=== PATIENT | female | born 1935 | race Caucasian/White ===

== ENCOUNTER → 2023-07-24 | Outpatient (REF) | payer MEDICARE, SELFPAY ==
[2023-07-25 08:45] LABS: Mucous, Urine 0 SEEN /hpf (<or=2+); Squamous Epithelial Cells - UA 0 SEEN /hpf (5-10)
[2023-07-25 09:02] LABS: Color, Urine Yellow (Yellow); Glucose, Dipstick Normal (Normal); Ketone-Dipstick Negative (Negative); Leukocyte Esterase-Dipstick 25 /ul (Negative); Nitrite-Dipstick Negative (Negative); Occult Blood-Urine 250 /ul (Negative); Protein-Dipstick 30 mg/dl (Negative); Urine Bilirubin Dipstick Negative (Negative); Urine Clarity Clear (Clear); Urine Urobilinogen Normal (Normal)
[2023-07-25 09:34] LABS: Red Blood Cells-Urine 25-50 SEEN /hpf (0-5); White Blood Cells 0-5 SEEN /hpf (0-5)
[2023-07-25 09:35] LABS: Bacteria 1+ /hpf (None Seen)
== END ==
LOC: OLS.SANC 12:00
PROVIDERS: Visit Provider Internal Medicine
DX: N39.0 Urinary tract infection, site not specified (principal)
CPT/HCPCS: 81001; 87086; 87088

== ENCOUNTER → 2023-07-30 | Outpatient (REF) | payer MEDICARE, SELFPAY ==
[2023-07-30 07:46] LABS: Mean Corp Hgb Conc 30.8 g/dL (32-36); Mean Corpuscular Hgb 25.8 pg (27.0-32.0); Mean Corpuscular Volume 83.9 fL (81-99); Mean Platelet Vol. 11.2 fl (6.2-12.0); Platelet Count 399 K/mm3 (150-450); RBC Distribution Width SD 43.1 fl (35.1-43.9); White Blood Count 6.8 K/mm3 (4.4-11.0)
[2023-07-30 07:50] LABS: ALB/GLOB Ratio 0.5 RATIO (0.9-2.4); AST(SGOT) 17 U/L (15-37); Alanine Aminotransfer ALT/SGPT 14 U/L (13-56); Alkaline Phosphatase 75 U/L (45-117); Anion Gap 4 (5-15); BUN 16 mg/dL (7-18); BUN/Creat Ratio 13.9 RATIO (10-20); Calcium,Total 8.6 mg/dL (8.5-10.1); Chloride 106 mmol/L (98-107); Creatinine, Serum 1.15 mg/dL (0.55-1.02); EST Glomerular Filtration Rate 48 mL/min (>60); Est Glom Filt Rate - Afr Amer 58 mL/min (>60); Globulin 4.3 g/dL (2.2-4.2); Glucose 97 mg/dL (74-106); Potassium 3.7 mmol/L (3.5-5.1); Protein, Total 6.3 g/dL (6.4-8.2); Sodium Level 139 mmol/L (136-145)
== END ==
LOC: OLS.SANC 04:00
PROVIDERS: Referring Provider Internal Medicine; Visit Provider Internal Medicine
DX: F03.90 Unspecified dementia, unspecified severity, without behavioral disturbance, psychotic disturbance, mood disturbance, and anxiety (principal); R53.83 Other fatigue; N28.9 Disorder of kidney and ureter, unspecified
CPT/HCPCS: 36415; 80053; 85027

== ENCOUNTER → 2024-12-13 | Outpatient (REF) | payer MEDICARE, SELFPAY ==
--- OUTSIDE RECORDS SUMMARY | 2024-12-13 04:49 | XMS RPT_ITS | CCD ---
Author Organization [facility] Care Team Providers Care Well Blower Name Role Phone Zeus AVILA Vera Primary Care Provider Christiano Gould Referring Unavailable Christiano Gould Attending Unavailable Christiano Gould Attending Unavailable BICAKODAK DO~[phone], BICAKODAK VERA Attendin g Unavailable BICAKODAK DO, VERA Primary Care Unavailable BICAKODAK DO~[id number], BICAKODAK VERA Admittin g Unavailable BICAKODAK DO~[id number], BICAKODAK VERA Attendin g Unavailable BICAKODAK DO, VERA Primary Care Unavailable BICAKODAK DO~[phone], BICAKODAK VERA Admittin g Unavailable Bicak-Odak DO, Vera Primary Care Provider ZEUS VERA Primary Care Unavailable ANTHONY WATKINS Consulting Unavailable VICTORINO BARNES Attending Unavailable CAMERON, VICTORINO Admitting Unavailable ENZO CAREY Consulting Unavailable Medications Current Medications Medication Drug Class(es) Dates Sig (Normalized) Sig (Original) cephalexin 500 mg oral capsule (1 source) Cephalosporin Antibacterial Start: 12-26-2022 End: 12-31-2022 take 1 capsule by mouth twice daily cephalexin (Keflex) 500 MG capsule Take 1 capsule (500 mg) by mouth 2 times daily for 5 days. 10 capsule 0 12/26/2022 12/31/2022 Active cholecalciferol 0.05 mg oral tablet (5 sources) Vitamin D Start: 12-05-2024 End: 12-05-2025 take 1 tablet by mouth once daily cholecalciferol (Vitamin D-3) 50 MCG (2000 UT) tablet Take 1 tablet (2,000 Units) by mouth daily. 30 tablet 11 12/05/2024 12/05/2025 Active Start: 12-04-2024 End: 12-04-2024 take 2000 [IU] by mouth once daily 2,000 Units, Oral, Daily, First dose on Fri12/04/24 at 0900 12 hr guaiFENesin 600 mg extended release oral tablet (6 sources) Start: 07-31-2022 End: 08-14-2022 take 1 tablet by mouth twice daily guaiFENesin (Mucinex) 600 MG 12 hr tablet Take 1 tablet (600 mg) by mouth 2 times daily for 7 days. Do not crush, chew, or split. 14 tablet 0 08/06/2022 08/14/2022 Active metoprolol tartrate 25 mg oral tablet (20 sources) beta-Adrenergic Mala Start: 12-01-2024 End: 12-04-2025 take 1 tablet by mouth twice daily metoprolol tartrate (Lopressor) 25 MG tablet Take 1 tablet (25 mg) by mouth 2 times daily. 60 tablet 11 12/04/2024 12/04/2025 Active Start: 07-11-2023 End: 07-22-2023 take 100 mg by mouth twice daily 100 mg, Oral, 2 times daily, First dose on Fri07/11/23 at 2130 Start: 07-31-2022 End: 08-07-2022 take 100 mg by mouth twice daily 100 mg, Oral, 2 times daily, First dose on Fri07/31/22 at 2100 Start: 06-20-2021 End: 12-04-2024 take 100 mg by mouth twice daily 100 mg, Oral, 2 times daily, First dose on Fri12/01/24 at 0900 miconazole nitrate 0.02 mg/mg topical powder (5 sources) Azole Antifungal Start: 12-03-2024 End: 12-04-2024 miconazole (Micotin) 2 % powder Apply topically 2 times daily. 1 g 12/04/2024 Active Completed/Discontinued Medications Medication Drug Class(es) Dates Sig (Normalized) Sig (Original) Acetaminophen (6 sources) Start: 12-01-2024 End: 12-04-2024 take 1 tablet by mouth every six hours as needed for pain and fever acetaminophen (Tylenol) tablet 650 mg Start: 07-11-2023 End: 02-27-2024 take 1 tablet by mouth every six hours as needed for pain and fever acetaminophen (Tylenol) tablet 650 mg Start: 06-20-2021 End: 08-07-2022 take 2 tablets by mouth every twenty-four hours as needed acetaminophen (Tylenol) 500 MG tablet Take 1,000 mg by mouth Daily as needed. 0 06/20/2021 08/07/2022 Discontinued (Stop taking at discharge) albuterol 0.833 mg/ml / ipratropium bromide 0.167 mg/ml inhalation solution (8 sources) Anticholinergic, beta2-Adrenergic Agonist Start: 07-16-2023 End: 07-22-2023 ipratropium-albuterol (Duo-Neb) 0.5-2.5 mg/3 mL nebulizer solution 3 mL Start: 07-31-2022 End: 08-07-2022 ipratropium-albuterol (Duo-N eb) 0.5-2.5 mg/3 mL nebulizer solution 3 mL amLODIPine 5 mg oral tablet (20 sources) Dihydropyridine Calcium Channel Mala Start: 07-23-2023 End: 12-04-2024 take 5 mg by mouth once daily 5 mg, Oral, Daily, First dose on Fri12/01/24 at 0900, On hold since Fri12/02/2024 at 0748 until manually unheld Start: 07-22-2023 End: 07-22-2023 amLODIPine (Norvasc) tablet 5 mg Start: 08-06-2022 End: 07-22-2023 take 1 tablet by mouth once daily amLODIPine (Norvasc) 10 MG tablet Take 1 tablet (10 mg) by mouth daily. Do not start before August 07, 2022. 30 tablet 1 08/07/2022 10/06/2022 Active Start: 08-04-2022 End: 08-05-2022 amLODIPine (Norvasc) tablet 7.5 mg Start: 06-20-2021 End: 08-03-2022 amLODIPine (Norvasc) tablet 5 mg aspirin 81 mg delayed release oral tablet (17 sources) Platelet Aggregation Inhibitor, Nonsteroidal Anti-inflammatory Drug Start: 12-02-2024 End: 12-04-2024 take 81 mg by mouth once daily 81 mg, Oral, Daily, First dose on Fri12/02/24 at 0900, Do not crush, chew, or split. Start: 12-01-2024 End: 12-01-2024 take 324 mg by mouth once 324 mg, Oral, Once, On Fri at 0000, For 1 dose Start: 07-12-2023 End: 07-22-2023 take 81 mg by mouth once daily 81 mg, Oral, Daily, Fir st dose on Fri07/12/23 at 0900, Do not crush, chew, or split. Start: 07-31-2022 End: 10-06-2022 take 1 tablet by mouth once daily aspirin 81 MG EC tab let Take 1 tablet (81 mg) by mouth daily. Do not start before August 07, 2022. 30 tablet 1 08/07/2022 10/06/2022 Active benzocaine 6 mg / menthol 10 mg oral lozenge (2 sources) Standardized Chemical Allergen Start: 08-01-2022 End: 08-07-2022 benzocaine-menthol (Chloraseptic) 6-10 MG lozenge 1 lozenge budesonide 0.25 mg/ml inhalation suspension (2 sources) Corticosteroid Start: 08-01-2022 End: 08-07-2022 budesonide (Pulmicort) 0.5 MG/2ML nebulizer solution 0.5 mg calcium chloride 0.0014 meq/ml / potassium chloride 0.004 meq/ml / sodium chloride 0.103 meq/ml / sodium lactate 0.028 meq/ml injectable solution (4 sources) Start: 12-02-2024 End: 12-02-2024 take 100 mL intravenously every hour 100 mL/hr, IntraVENous, Continuous, Starting on Fri12/02/24 at 0800, For 10 hours Start: 08-03-2022 End: 08-03-2022 lactated Ringer's infusion cefTRIAXone (Rocephin) 1,000 mg in sodium chloride 0.9 % 50 mL IVPB Mini-Bag Plus (6 sources) Start: 07-16-2023 End: 07-16-2023 cefTRIAXone (Rocephin) 1,000 mg in sodium chloride 0.9 % 50 mL IVPB Mini-Bag Plus Start: 08-05-2022 End: 08-06-2022 cefTRIAXone (Rocephin) 1,000 mg in sodium chloride 0.9 % 50 mL IVPB Mini-Bag Plus Start: 07-31-2022 End: 08-05-2022 1,000 mg, IntraVENous, at 10 0 mL/hr, Administer over 30 Minutes, Every 24 hours, First dose on Fri07/31/22 at 1930 Mini-Bag Plus bag Suspected Indication (Select all that apply): COPD Exacerbation doxycycline monohydrate 100 mg oral capsule (2 sources) Tetracycline-class Drug Start: 07-31-2022 End: 08-01-2022 100 mg, Oral, 2 times daily, First dose on Fri07/31/22 at 2100 Take with at least 8 ounces (large glass) of water, do not lie down for 30 minutes after Suspected Indication (Select all that apply): COPD Exacerbation 0.4 ml enoxaparin sodium 100 mg/ml prefilled syringe (6 sources) Low Molecular Weight Heparin Start: 12-01-2024 End: 12-04-2024 inject 40 mg by subcutaneous injection every twenty-four hours 40 mg, SubCUTAneous, Every 24 hours scheduled (Daily), First dose on Fri12/01/24 at 0900, Indication of Use: Prophylaxis-DVT/PE , Indications: Prophylaxis of Venous Thromboembolism Start: 07-12-2023 End: 07-22-2023 inject 40 mg by subcutaneous injection every twenty-four hours 40 mg, SubCUTAneous, Every 24 hours scheduled (Daily), First dose on Fri07/12/23 at 0900, Indication of Use: Prophylaxis-DVT/PE, Indications: Prophylaxis of Venous Thromboembolism Start: 07-31-2022 End: 08-07-2022 inject 40 mg by subcutaneous injection every twenty-four hours 40 mg, SubCUTAneous, Every 24 hours scheduled (Daily), First dose on Fri07/31/22 at 2000 Indication of Use: Prophylaxis-DVT/PE Indications: Prophylaxis of Venous Thromboembolism 4 ml furosemide 10 mg/ml injection (2 sources) Loop Diuretic Start: 07-16-2023 End: 07-16-2023 furosemide (Lasix) injection 40 mg hydrALAZINE hydrochloride 50 mg oral tablet (13 sources) Arteriolar Vasodilator Start: 08-07-2022 End: 07-22-2023 take 50 mg by mouth three times daily 50 mg, Oral, 3 times daily, First dose on Fri07/11/23 at 2130 Start: 08-06-2022 End: 08-07-2022 hydrALAZINE (Apresoline) tab let 25 mg iopamidol (Isovue-370) 76 % injection 75 mL (2 sources) Start: 12-01-2024 End: 12-01-2024 take 75 mL intravenously once as needed 75 mL, IntraVENous, IMG once PRN, contrast, Starting on Fri12/01/24 at 0041, For 1 dose 50 ml magnesium sulfate 40 mg/ml injection (5 sources) Start: 11-30-2024 End: 12-01-2024 2,000 mg, IntraVENous, at 25 mL/hr, Administer over 2 Hours, Once, On Fri11/30/24 at 2325, For 1 dose, Recommended infusion rate not to exceed 1,000 mg (milligrams) per hour. Start: 07-11-2023 End: 07-11-2023 magnesium sulfate IVPB premi x 2,000 mg Start: 12-26-2022 End: 12-26-2022 magnesium sulfate in D5W IVP B 1,000 mg melatonin 3 mg oral tablet (11 sources) Start: 07-16-2023 End: 12-04-2024 methylPREDNISolone 40 mg injection (4 sources) Corticosteroid Start: 08-01-2022 End: 08-02-2022 take 20 mg intravenously every twelve hours methylPREDNISolone sod suc (PF) (SOLU-Medrol) 40 MG injection 20 mg Start: 07-31-2022 End: 08-01-2022 take 40 mg intravenously every twelve hours 40 mg, IntraVENous, Every 12 hours, First dose on Fri07/31/22 at 1815 nystatin 034811 unt/ml oral suspension (2 sources) Polyene Antifungal Start: 08-02-2022 End: 08-07-2022 nystatin (Mycostatin) 419326 UNIT/ML suspension 500,000 Units ondansetron ODT (Zofran-ODT) disintegrating tablet 4 mg (6 sources) Start: 12-01-2024 End: 12-04-2024 take 1 tablet by mouth every eight hours as needed for nausea and vomiting ondansetron ODT (Zofran-ODT) disintegrating tablet 4 mg Start: 07-11-2023 End: 07-22-2023 take 1 tablet by mouth every eight hours as needed for nausea and vomiting ondansetron ODT (Zofran-ODT) disintegrating tablet 4 mg Start: 07-31-2022 End: 08-07-2022 take 1 tablet by mouth every eight hours as needed for nausea and vomiting ondansetron ODT (Zofran-ODT) disintegrating tablet 4 mg pantoprazole 40 mg delayed release oral tablet (16 sources) Proton Pump Inhibitor Start: 08-05-2022 End: 12-04-2024 take 40 mg by mouth once daily before breakfast 40 mg, Oral, Daily before breakfast, First dose on Shivani 12/02/24 at 0600, Do not crush, chew, or split. PARoxetine hydrochloride 10 mg oral tablet (11 sources) Serotonin Reuptake Inhibitor Start: 07-15-2023 End: 07-17-2023 PARoxetine (Paxil) tablet 10 mg Start: 07-12-2023 End: 07-14-2023 take 20 mg by mouth once daily in the morning 20 mg, Oral, Every morning, First dose on 07/12/23 at 0900 End: 07-22-2023 take 2 tablets by mouth once daily in the morning PARoxetine (Paxil) 10 MG tablet Take 20 mg by mouth every morning. 0 07/22/2023 Discontinued (Stop taking at discharge) perflutren lipid microspheres (Definity) injection 1.65 mg (2 sources) Start: 07-31-2022 End: 08-07-2022 1.65 mg, IntraVENous, IMG once PRN, other, Suboptimal echo image, Starting on Fri07/31/22 at 1810, For 1 dose, CV Procedural Medications Administer up to 1.65 mg via slow IVP for suboptimal echocardiogram enhancement. May administer a calculated dose or diluted 8.5 mL of 0.9% sodium chloride for a total volume of 10 mL. May administer as divided doses to reach optimal image enhancement perflutren protein A microsphere (Optison) 3 mL in sodium chloride (PF) 0.9 % 10 mL IV (2 sources) Start: 12-02-2024 End: 12-02-2024 0-10 mL, IntraVENous, IMG once PRN, other, Suboptimal echo image, Starting on Shivani 12/02/24 at 0943, For 1 dose, CV Procedural Medications, Administer via slow IVP for suboptimal echocardiogram enhancement. May administer as divided doses to reach optimal image enhancement polyethylene glycol 3350 31274 mg powder for oral solution (6 sources) Osmotic Laxative Start: 12-01-2024 End: 12-04-2024 take 17 g by mouth every twenty-four hours as needed for constipation Start: 07-17-2023 End: 07-22-2023 polyethylene glycol (PEG) 33 50 (Miralax) packet 17 g Start: 07-31-2022 End: 08-07-2022 take 17 g by mouth every twenty-four hours as needed for constipation 17 g, Oral, Daily PRN, constipation, Starting on Fri07/31/22 at 1810 1st line for treatment of constipation - give scheduled if no bowel movement in past 24 hours. microencapsulated potassium chloride 10 meq extended release oral tablet (12 sources) Start: 12-02-2024 End: 12-02-2024 20 mEq, Oral, Once, On Fri12/02/24 at 0800, For 1 dose, Best given with food and plenty of water to minimize gastric irritation. Do not crush or chew. Start: 07-21-2023 End: 07-22-2023 potassium chloride (Klor-Con ) packet 20 mEq Start: 07-18-2023 End: 07-21-2023 potassium chloride CR (Klor- Con M20) ER tablet 20 mEq Start: 07-11-2023 End: 07-12-2023 potassium chloride IVPB 10 m Eq Start: 07-11-2023 End: 07-11-2023 potassium chloride (Klor-Con ) packet 40 mEq Start: 07-31-2022 End: 07-31-2022 potassium chloride (Klor-Con ) packet 40 mEq predniSONE 20 mg oral tablet (4 sources) Start: 07-16-2023 End: 07-18-2023 predniSONE (Deltasone) table t 40 mg Start: 08-02-2022 End: 08-05-2022 predniSONE (Deltasone) table t 40 mg sertraline 50 mg oral tablet (16 sources) Serotonin Reuptake Inhibitor Start: 12-03-2024 End: 12-04-2024 take 50 mg by mouth once daily 50 mg, Oral, Daily, First dose on Fri12/03/24 at 0900 Start: 07-25-2023 End: 07-24-2024 sertraline (Zoloft) 50 MG ta blet Take 1 tablet (50 mg) by mouth daily. Do not start before July 25, 2023. 07/25/2023 Active Start: 07-25-2023 End: 07-22-2023 sertraline (Zoloft) tablet 5 0 mg Start: 07-25-2023 End: 07-22-2023 sertraline (Zoloft) tablet 5 0 mg Start: 07-23-2023 End: 12-04-2024 take 1 tablet by mouth once daily sertraline (Zoloft) 25 MG tablet Take 1 tablet (25 mg) by mouth daily for 2 doses. 07/23/2023 12/04/2024 Discontinued (Stop taking at discharge) Start: 07-18-2023 End: 07-22-2023 sertraline (Zoloft) tablet 2 5 mg 50 ml sodium chloride 9 mg/m l injection (17 sources) Start: 12-01-2024 End: 12-01-2024 500 mL, IntraVENous, at 250 mL/hr, Administer over 2 Hours, Once, On Fri12/01/24 at 0000, For 1 dose Start: 07-11-2023 End: 07-16-2023 take 100 mL intravenously every hour 100 mL/hr, IntraVENous, Continuous, Starting on Fri07/11/23 at 2130 Start: 07-11-2023 End: 07-11-2023 sodium chloride 0.9 % bolus 1,000 mL Start: 12-26-2022 End: 12-26-2022 sodium chloride 0.9 % bolus 1,000 mL Start: 07-31-2022 End: 08-07-2022 10 mL, IntraVENous, Every 12 hours scheduled (2 times per day), First dose on Fri07/31/22 at 2100 Start: 07-31-2022 End: 08-07-2022 5-250 mL/hr, IntraVENous, DE N, if patient receiving piggyback infusions and maintenance fluids are not ordered OR KVO fluids to protect IV site / prevent frequent line interruptions/ long duration, Starting on Fri07/31/22 at 1810 For piggyback infusion, administer at same rate as piggyback for a total of 25 mL. Enter 25 mL into dose field and piggyback rate into rate field of order. If piggyback is infusing at a rate less than 100 mL/hr, enter 25 mL into dose field and 100 mL/hr into rate field of order. For KVO fluids, enter rate of 20 mL/hr or less into rate field of order. Start: 07-31-2022 End: 08-07-2022 take 10 mL intravenously once 10 mL, IntraVENous, PRN, line care, Starting on Fri07/31/22 at 1810 After every IV line use Start: 07-31-2022 End: 07-31-2022 sodium chloride 0.9 % bolus 500 mL therapeutic multivitamin-minerals (Theragran-M) tablet (12 sources) Start: 12-01-2024 End: 12-04-2024 take 1 tablet by mouth once daily 1 tablet, Oral, Daily, First dose on Fri12/01/24 at 0900 take 1 tablet by mouth once joseph y therapeutic multivitamin-minerals (Theragran- M) tablet Take 1 tablet by mouth daily. Active take 1 tablet by mouth once joseph y therapeutic multivitamin-minerals (Theragran- M) tablet Take 1 tablet by mouth daily. 0 Active Problems Active Problems Problem Classification Problem Date Documented Date Episodic/Chronic Acute and unspecified renal failure (4 sources) Acute renal failure syndrome; Translations: [Acute kidney failure, unspecified] Onset: 11-30-2024 11-30-2024 Episodic Chronic kidney disease (3 sources) Chronic kidney disease, unspecified; Translations: [Chronic kidney disease, unspecified] Onset: 08-14-2023 Chronic Chronic kidney disease (1 source) Chronic kidney disease; Translations: [CHRONIC KIDNEY DISEASE STAGE 3B] Onset: 09-02-2024 Conditions associated with dizziness or vertigo (1 source) Dizziness; Translations: [Dizziness and giddiness] 12-26-2022 Episodic Delirium, dementia, and amnestic and other cognitive disorders (13 sources) Unspecified dementia without behavioral disturbance; Translations: [Dementia] Onset: 08-14-2023 12-01-2024 Chronic Essential hypertension (2 sources) Essential (primary) hypertension; Translations: [ESSENTIAL PRIMARY HYPERTENSION] Onset: 02-12-2024 Chronic Fluid and electrolyte disorders (2 sources) Hypokalemia; Translations: [Hypokalemia] 07-11-2023 Episodic Hypertension with complications and secondary hypertension (2 sources) Hypertensive chronic kidney disease with stage 1 through stage 4 chronic kidney disease, or unspecified chronic kidney disease; Translations: [HTN CKD W/STAGE 1-4 CKD/UNS CKD] Onset: 09-02-2024 Chronic Malaise and fatigue (8 sources) Asthenia; Translations: [Weakness] Onset: 08-14-2023 07-11-2023 Episodic Mood disorders (1 source) Major depressive disorder, recurrent, mild; Translations: [REGINE DEPRESS D/O RECURRENT MILD] Onset: 09-02-2024 Chronic Nutritional deficiencies (9 sources) Malnutrition (calorie); Translations: [Moderate protein-calorie malnutrition] Onset: 07-14-2023 07-14-2023 Chronic Osteoarthritis (10 sources) Arthritis of knee; Translations: [Unilateral primary osteoarthritis, unspecified knee] Onset: 06-17-2021 03-10-2022 Chronic Other nutritional; endocrine; and metabolic disorders (2 sources) Hypomagnesemia; Translations: [Hypomagnesemia] 07-11-2023 Chronic Other screening for suspected conditions (not mental disorders or infectious disease) (4 sources) Abnormal findings on diagnostic imaging of other specified body structures; Translations: [Nonspecific (abnormal) findings on radiological and other examination of other intrathoracic organs] Onset: 11-30-2024 11-30-2024 Chronic Other screening for suspected conditions (not mental disorders or infectious disease) (4 sources) Raised cardiac enzyme or marker; Translations: [Other specified abnormal findings of blood chemistry] Onset: 11-30-2024 11-30-2024 Episodic Other skin disorders (2 sources) Mass of neck; Translations: [Localized swelling, mass and lump, neck] 11-30-2024 Episodic Other skin disorders (2 sources) Localized swelling, mass and lump, neck; Translations: [Localized swelling, mass and lump, neck] Onset: 11-30-2024 Episodic Residual codes; unclassified (2 sources) Restlessness and agitation; Translations: [Restlessness and agitation] 11-30-2024 Chronic Residual codes; unclassified (2 sources) Restlessness and agitation; Translations: [Restlessness and agitation] Onset: 11-30-2024 Chronic Residual codes; unclassified (5 sources) At risk of delirium; Translations: [Other specified personal risk factors, not elsewhere classified] Onset: 12-01-2024 12-01-2024 Episodic Urinary tract infections (2 sources) Acute cystitis; Translations: [Acute cystitis without hematuria] Onset: 08-11-2023 12-26-2022 Episodic Past or Other Problems Problem Classification Problem Date Documented Da te Episodic/Chronic Other aftercare (1 source) Other jail (current) drug therapy; Translations: [OTH RETIREMENT CURRENT DRUG THERAPY] Onset: 02-12-2024 Episodic Other lower respiratory disease (14 sources) Dyspnea; Translations: [Dyspnea, unspecified] Onset: 07-31-2022 Episodic Residual codes; unclassified (9 sources) Activity of daily living (ADL) alteration; Translations: [Other specified health status] Onset: 07-11-2023 07-11-2023 Episodic Results Test Name Value Interpretation Reference Range Facility [id number] 12-05-2024 [id number] Patient Choice Patient Name: YELENA CHANDRA Date of : 1935 [facility] 30on 12-04-2024 30 Problem: Pain - Adul t Goal: Verbalizes/displays adequate comfort level or baseline comfort level 12/04/2024444 by Salina Godoy RN Outcome: Not Progressing 12/04/2024 040 by Salina Godoy RN Outcome: Not Progressing 12/04/2024 014 by Salina Godoy RN Outcome: Not Progressing 12/04/2024 012 by Salina Godoy RN Outcome: Not Progressing Problem: Safety - Adult Goal: Free from fall injury 12/04/2024444 by Salina Godoy RN Outcome: Not Progressing 12/04/2024404 by Salina Godoy RN Outcome: Not Progressing 12/04/2024 0141 by Salina Godoy RN Outcome: Not Progressing 12/04/2024 012 by Salina Godoy RN Outcome: Not Progressing Problem: Discharge Planning Goal: Discharge to home or other facility with appropriate resources 12/04/2024 0445 by Salina Godoy RN Outcome: Not Progressing 12/04/2024 0405 by Salina Godoy RN Outcome: Not Progressing 12/04/2024 014 by Salina Godoy RN Outcome: Not Progressing 12/04/2024 0127 by Salina Godoy RN Outcome: Not Progressing Problem: Chronic Conditions and Co-morbidities Goal: Patient's chronic conditions and co-morbidity symptoms are monitored and maintained or improved 12/04/2024 044 by Salina Godoy RN Outcome: Not Progressing 12/04/2024 040 by Salina Godoy RN Outcome: Not Progressing 12/04/2024 014 by Salina Godoy RN Outcome: Not Progressing 12/04/2024 012 by Salina Godoy RN Outcome: Not Progressing Problem: Problem Interventions Goal: Assess Nutritional Intake 12/04/2024444 by Salina Godoy RN Outcome: Not Progressing 12/04/2024 040 by Salina Godoy RN Outcome: Not Progressing 12/04/2024 014 by Salina Godoy RN Outcome: Not Progressing 12/04/2024 012 by Salina Godoy RN Outcome: Not Progressing [facility] 30 Problem: Pain - Adul t Goal: Verbalizes/displays adequate comfort level or baseline comfort level 12/04/2024404 by Salina Godoy RN Outcome: Not Progressing 12/04/2024 014 by Salina Godoy RN Outcome: Not Progressing 12/04/2024 012 by Salina Godoy RN Outcome: Not Progressing Problem: Safety - Adult Goal: Free from fall injury 12/04/2024404 by Salina Godoy RN Outcome: Not Progressing 12/04/2024 014 by Salina Godoy RN Outcome: Not Progressing 12/04/2024 012 by Salina Godoy RN Outcome: Not Progressing Problem: Discharge Planning Goal: Discharge to home or other facility with appropriate resources 12/04/2024 0405 by Salina Godoy RN Outcome: Not Progressing 12/04/2024 014 by Salina Godoy RN Outcome: Not Progressing 12/04/2024 012 by Salina Godoy RN Outcome: Not Progressing Problem: Chronic Conditions and Co-morbidities Goal: Patient's chronic conditions and co-morbidity symptoms are monitored and maintained or improved 12/04/2024 040 by Salina Godoy RN Outcome: Not Progressing 12/04/2024 014 by Salina Godoy RN Outcome: Not Progressing 12/04/2024 012 by Salina Godoy RN Outcome: Not Progressing Problem: Problem Interventions Goal: Assess Nutritional Intake 12/04/2024 040 by Salina Godoy RN Outcome: Not Progressing 12/04/2024 014 by Salina Godoy RN Outcome: Not Progressing 12/04/2024 012 by Salina Godoy RN Outcome: Not Progressing Normal [facility] 30 Problem: Pain - Adul t Goal: Verbalizes/displays adequate comfort level or baseline comfort level 12/04/2024 014 by Salina Godoy RN Outcome: Not Progressing 12/04/2024 012 by Salina Godoy RN Outcome: Not Progressing Problem: Safety - Adult Goal: Free from fall injury 12/04/2024 014 by Salina Godoy RN Outcome: Not Progressing 12/04/2024 012 by Salina Godoy RN Outcome: Not Progressing Problem: Discharge Planning Goal: Discharge to home or other facility with appropriate resources 12/04/2024 014 by Salina Godoy RN Outcome: Not Progressing 12/04/2024 012 by Salina Godoy RN Outcome: Not Progressing Problem: Chronic Conditions and Co-morbidities Goal: Patient's chronic conditions and co-morbidity symptoms are monitored and maintained or improved 12/04/2024140 by Salina Godoy RN Outcome: Not Progressing 12/04/2024126 by Salina Godoy RN Outcome: Not Progressing Problem: Problem Interventions Goal: Assess Nutritional Intake 12/04/2024140 by Salina Godoy RN Outcome: Not Progressing 12/04/2024126 by Salina Godoy RN Outcome: Not Progressing Normal [facility] [facility] 30 Problem: Pain - Adul t Goal: Verbalizes/displays adequate comfort level or baseline comfort level Outcome: Not Progressing Problem: Safety - Adult Goal: Free from fall injury Outcome: Not Progressing Problem: Discharge Planning Goal: Discharge to home or other facility with appropriate resources Outcome: Not Progressing Problem: Chronic Conditions and Co-morbidities Goal: Patient's chronic conditions and co-morbidity symptoms are monitored and maintained or improved Outcome: Not Progressing Problem: Problem Interventions Goal: Assess Nutritional Intake Outcome: Not Progressing Normal [facility] [id number] 12-04-2024 [id number] Next Site of Care Admission Date: 11/30/2024 10:21 PM Patient Name: YELENA CHANDRA Location: [address] CARDIAC PCU/[facility] [id number] A Date of : 1935 ---- Placement Information ---- Referral Type:Assisted/SNF - New Referral ID:[id number] Provider Name:[facility] [employer] [employer] Address 1:[address] [facility] Address 2: City:[place] Selection Factors:Patient/Family Choice State:[facility] [phone] PAS complete for patient to admit to [facility] . [facility]on 12-[facility]-2024 36 Name of caller requesting page:Ailyn Phone Number of caller: [phone] Facility requesting page: [facility] Reason for Page: MERNA Provider paged: Dr. Delcid Practice Name of paged provider: [facility] Nadine Miller Page Placed to #: secure chat Time Page was sent or provider contacted: 12:00 Page Content: Ailyn fam [facility] is calling to notify that you have a new admission coming today please advise [phone] [employer] [facility] CBC W Auto Differential pane l (Bld)on 12-04-2024 Basophils (Bld) [#/Vol] 0.1 10*3/uL 0.0 - 0.2 10*3/uL [facility] [employer] Basophils/100 WBC (Bld) 2 % 0.0 - 2.0 % [employer] [employer] Eosinophils (Bld) [#/Vol] 0.4 10*3/uL 0.0 - 0.5 10*3/uL [facility] Eosinophils/100 WBC (Bld) 6.6 % High 0.0 - 6.0 % [facility] Erythrocyte distribution width (RBC) [Ratio] 14 % 11.5 - 15.0 % [facility] Hematocrit (Bld) [Volume fraction] 32.7 % Low 35.0 - 47.0 % [facility] Hemoglobin (Bld) [Mass/Vol] 10.3 g/dL Low 11.7 - 16.0 g/dL [facility] Immature granulocytes (Bld) [#/Vol] 0 10*3/uL NINF - 0.1 10*3/uL [facility] Immature granulocytes/100 WBC (Bld) 0.5 % 0.0 - 2.0 % [facility] Interpretation and review of laboratory results Abnormal [facility] Lymphocytes (Bld) [#/Vol] 1.5 10*3/uL 1.0 - 4.3 10*3/uL [facility] Lymphocytes/100 WBC (Bld) 25.1 % 15.0 - 45.0 % [facility] MCH (RBC) [Entitic mass] 27.2 pg 26. 0 - 34.0 pg [facility] MCHC (RBC) [Mass/Vol] 31.5 % 30.5 - 36.0 % [facility] MCV (RBC) [Entitic vol] 86.3 fL 77.0 - 99.0 fL [facility] Monocytes (Bld) [#/Vol] 0.7 10*3/uL 0.0 - 0.9 10*3/uL [facility] Monocytes/100 WBC (Bld) 11.7 % 5.0 - 13.0 % [facility] Neutrophils (Bld) [#/Vol] 3.3 10*3/uL 1.8 - 7.5 10*3/uL [facility] Neutrophils/100 WBC (Bld) 54.1 % 38.0 - 82.0 % [facility] Nucleated RBC/100 WBC (Bld) [Ratio] 0 % [facility] Platelet mean volume (Bld) [Entitic vol] 10.2 fL 9.0 - 12.7 fL [facility] Platelets (Bld) [#/Vol] 320 10*3/uL 140 - 440 10*3/uL [facility] RBC (Bld) [#/Vol] 3.79 10*6/uL Low 3.80 - 5.2 0 10*6/uL [facility] WBC (Bld) [#/Vol] 6.1 10*3/uL 3.6 - 10.7 10*3/uL [facility] CBC WITH AUTO DIFFERENTIALon 12-04-2024 Basophils (Bld) [#/Vol] 0.1 10*3/uL Normal 0.0-0.2 [facility] Comment on above: Performed By: #### L [id number] ####Commercial Accountant: HILDA MACEDO ([phone])[facility] [place] ([facility])[address] Basophils/100 WBC (Bld) 2.0 % Normal 0.0-2.0 [facility] Comment on above: Performed By: #### L [id number] ####Commercial Accountant: HILDA MACEDO ([id number])[facility] (SB[facility])[address] [place] [address] Eosinophils (Bld) [#/Vol] 0.4 10*3/uL Normal 0.0-0.5 [facility] Comment on above: Performed By: #### L [id number] ####Commercial Accountant: HILDA MACEDO ([id number])[facility] [place] ([facility])[address] [place] [address] Eosinophils/100 WBC (Bld) 6.6 % High 0.0-6.0 [facility] Comment on above: Performed By: #### L [id number] ####Commercial Accountant: HILDA MACEDO ([id number])[facility] [place] (SB[facility])[address] [place] [address] Erythrocyte distribution width (RBC) [Ratio] 14.0 % Normal 11.5-15.0 [facility] Comment on above: Performed By: #### L [id number] ####Commercial Accountant: HILDA MACEDO ([id number])[facility] [place] ([facility])[address] [place] [address] Hematocrit (Bld) [Volume fraction] 32.7 % Low 35.0-47.0 [facility] Comment on above: Performed By: #### L [id number] ####Commercial Accountant: HILDA MACEDO ([id number])[facility] [place] [address] Hemoglobin (Bld) [Mass/Vol] 10.3 g/dL Low 11.7-16.0 [facility] Comment on above: Performed By: #### L [id number] ####Commercial Accountant: HILDA MACEDO ([id number])[facility] ([facility])[address] [place] [address] IMMATURE GRANS % 0.5 % Normal 0.0-2.0 [facility] Comment on above: Performed By: #### L [id number] ####Commercial Accountant: HILDA MACEDO ([id number])[facility] ([facility])[address] [place] [address] IMMATURE GRANS ABSOLUTE 0.0 10*3/uL Normal <0.1 [facility] Comment on above: Performed By: #### L [id number] ####Commercial Accountant: HILDA MACEDO ([id number])[facility] ([facility])[address] [place] [address] Lymphocytes (Bld) [#/Vol] 1.5 10*3/uL Normal 1.0-4.3 [facility] Comment on above: Performed By: #### L [id number] ####Commercial Accountant: HILDA MACEDO ([id number])[facility] ([facility])[address] [place] [address] Lymphocytes/100 WBC (Bld) 25.1 % Normal 15.0-45.0 [facility] Comment on above: Performed By: #### L [id number] ####Commercial Accountant: HILDA MACEDO ([id number])[facility])[address] [place] [address] MCH (RBC) [Entitic mass] 27.2 pg Normal 26.0-34.0 [facility] Comment on above: Performed By: #### L [id number] ####Commercial Accountant: HILDA MACEDO ([id number])[facility] (SB[facility]AB)[address] [place] [address] MCHC 31.5 % Normal 30.5-36.0 [facility] Comment on above: Performed By: #### L [id number] ####Commercial Accountant: HILDA MACEDO ([id number])[facility] [place] ([facility])[address] MCV (RBC) [Entitic vol] 86.3 fL Normal 77.0-99.0 [facility] Comment on above: Performed By: #### L [id number] ####Commercial Accountant: HILDA BRYANTCASSANDRA ([id number])[facility] [place] (SBHLAB)[address] [place] [address] Monocytes (Bld) [#/Vol] 0.7 10*3/uL Normal 0.0-0.9 [facility] Comment on above: Performed By: #### L [id number] ####Commercial Accountant: HILDA MACEDO ([id number])[facility] [place] ([facility])[address] [place] [address] Monocytes/100 WBC (Bld) 11.7 % Normal 5.0-13.0 [facility] Comment on above: Performed By: #### L [id number] ####Commercial Accountant: HILDA MACEDO ([id number])[facility] [place] ([facility])[address] [place] [address] NEUTROPHILS ABSOLUTE 3.3 10*3/uL Normal 1.8-7.5 [facility] Comment on above: Performed By: #### L [id number] ####Commercial Accountant: HILDA MACEDO ([id number])[facility] [place] ([facility])[address] [place] [address] Neutrophils/100 WBC (Bld) 54.1 % Normal 38.0-82.0 [facility] Comment on above: Performed By: #### L [id number] ####Commercial Accountant: HILDA MACEDO ([id number])[facility] [place] (SB[facility]AB)[address] NRBC 0.0 /100 WBCs Normal 0.0-2.0 [facility] Comment on above: Performed By: #### L [id number] ####Commercial Accountant: HILDA MACEDO ([id number])[facility] (SB[facility])[address] Platelet mean volume (Bld) [Entitic vol] 10.2 fL Normal 9.0-12.7 [facility] Comment on above: Performed By: #### L [id number] ####Commercial Accountant: HILDA MACEDO ([id number])[facility]ENTER[facility] (SB[facility]AB)[address] [place] [address] Platelets (Bld) [#/Vol] 320 10*3/uL Normal 140-440 [facility] Comment on above: Performed By: #### L [id number] ####Commercial Accountant: HILDA MACEDO ([id number])[facility] [place] (SBHLAB)[address] RBC (Bld) [#/Vol] 3.79 10*6/uL Low 3.80-5.20 [facility] Comment on above: Performed By: #### L [id number] ####Commercial Accountant: HILDA MACEDO ([id number])[facility] (SB[facility])[address] WBC (Bld) [#/Vol] 6.1 10*3/uL Normal 3.6-10.7 [facility] Comment on above: Performed By: #### L [id number] ####Commercial Accountant: HILDA MACEDO ([id number])[facility] CENTERCt (SBHLAB)[address] COMPREHENSIVE METABOLIC PANE Killian 12-04-2024 Albumin [Mass/Vol] 2.2 g/dL Low 3.4-4.8 [facility] Comment on above: Performed By: #### L [id number] #### Commercial Accountant: NICKI MONAE ([id number]) [facility] ([facility]) [address] [place] [address] ALP [Catalytic activity/Vol] 73 U/L Normal 40-150 [facility] Comment on above: Performed By: #### L [id number] #### Commercial Accountant: NICKI MONAE ([id number]) [facility] ([facility]) [address] [place] [address] ALT [Catalytic activity/Vol] 10 U/L Normal <30 [facility] Comment on above: Performed By: #### L [id number] #### Commercial Accountant: NICKI MONAE ([id number]) [facility] ([facility]) [address] [place] [address] Anion gap [Moles/Vol] 9 mmol/L Normal 3-13 [facility] Comment on above: Performed By: #### L [id number] #### Commercial Accountant: NICKI MONAE ([id number]) [facility] ([facility]) [address] [place] [address] AST [Catalytic activity/Vol] 28 U/L Normal <34 [facility] Comment on above: Performed By: #### L [id number] #### Commercial Accountant: NICKI MONAE ([id number]) [facility] ([facility]) [address] [place] [address] Bilirubin [Mass/Vol] 0.2 mg/dL Normal <1.2 [facility] Comment on above: Performed By: #### L [id number] #### Commercial Accountant: NICKI MONAE ([id number]) [facility] ([facility]) [address] [place] [address] Calcium [Mass/Vol] 7.4 mg/dL Low 8.8-10.0 [facility] Comment on above: Performed By: #### L [id number] #### Commercial Accountant: NICKI MONAE ([id number]) [facility] ([facility]) [address] [place] [address] Chloride [Moles/Vol] 109 mmol/L High 98-107 [facility] Comment on above: Performed By: #### L [id number] #### Commercial Accountant: NICKI MONAE ([id number]) [facility] ([facility]) [address] [place] [address] CO2 [Moles/Vol] 19 mmol/L Low 23-31 [facility] Comment on above: Performed By: #### L [id number] #### Commercial Accountant: NICKI MONAE ([id number]) [facility] ([facility]) [address] [place] [address] Creatinine [Mass/Vol] 1.29 mg/dL High 0.57-1.11 [facility] Comment on above: Performed By: #### L [id number] #### Commercial Accountant: NICKI MONAE ([id number]) [facility] ([facility]) [address] [place] [address] GLOMERULAR FILTRATION RATE ML/MIN/1.73 SQ M.PREDICTED 40.3 mL/min/1.73m*2 Low >60.0 [facility] Comment on above: Result Comment: Calc ulation based on the Chronic Kidney Disease Epidemiology Collaboration (CKD-EPI) equation refit without adjustment for race Performed By: #### L [id number] #### Commercial Accountant: NICKI MONAE ([id number]) [facility] ([facility]) [address] [place] [address] Glucose [Mass/Vol] 113 mg/dL Normal 82-115 [facility] Comment on above: Performed By: #### L [id number] #### Commercial Accountant: NICKI MONAE ([id number]) [facility]) [address] [place] [address] Potassium [Moles/Vol] 3.6 mmol/L Normal 3.5-5.1 [facility] Comment on above: Result Comment: [facility] potassium values may be up to 0.5 mmol/L lower than serum values. Performed By: #### L [id number] #### Commercial Accountant: NICKI MONAE ([id number]) [facility] [address] [place] [address] Protein [Mass/Vol] 5.4 g/dL Low 6.4-8.3 [facility] Comment on above: Performed By: #### L [id number] #### Commercial Accountant: NICKI MONAE ([id number]) [facility] ([facility]) [address] [place] [address] Sodium [Moles/Vol] 137 mmol/L Normal 136-145 [facility] Comment on above: Performed By: #### L [id number] #### Commercial Accountant: NCIKI MONAE ([id number]) [facility] ([facility]) [address] [place] [address] Urea nitrogen [Mass/Vol] 44 mg/dL High 9-23 [facility] Comment on above: Performed By: #### L [id number] #### Commercial Accountant: NICKI MONAE ([id number]) [facility] [address] [place] [address] Comprehensive metabolic 1998 panelon 12-04-2024 Albumin [Mass/Vol] 2.2 g/dL Low 3.4 - 4.8 g/dL [facility] ALP [Catalytic activity/Vol] 73 U/L 40 - 150 U/L [facility] ALT [Catalytic activity/Vol] 10 U/L NINF - 30 U/L [facility] Anion gap [Moles/Vol] 9 mmol/L 3 - 13 mmol/L [facility] AST [Catalytic activity/Vol] 28 U/L NINF - 34 U/L [facility] Bilirubin [Mass/Vol] 0.2 mg/dL NINF - 1.2 mg/dL [facility] Calcium [Mass/Vol] 7.4 mg/dL Low 8.8 - 10. 0 mg/dL [facility] Chloride [Moles/Vol] 109 mmol/L High 98 - 10 7 mmol/L [facility] CO2 [Moles/Vol] 19 mmol/L Low 23 - 31 mmol/L [facility] Creatinine [Mass/Vol] 1.29 mg/dL High 0.57 - 1.11 mg/dL [facility] GFR/1.73 sq M.predicted (S/P/Bld) [Vol rate/Area] 40.3 mL/min Low - PINF [facility] Comment on above: Calculation based on the Chronic Kidney Disease Epidemiology Collaboration (CKD-EPI) equation refit without adjustment for race Glucose [Mass/Vol] 113 mg/dL 82 - 115 mg/dL [facility] Interpretation and review of laboratory results Abnormal [facility] Potassium [Moles/Vol] 3.6 mmol/L 3.5 - 5.1 mmol/L [facility] Comment on above: Plasma potassium thea ues may be up to 0.5 mmol/L lower than serum values. Protein [Mass/Vol] 5.4 g/dL Low 6.4 - 8.3 g/dL [facility] Sodium [Moles/Vol] 137 mmol/L 136 - 145 mmol/L [facility] Urea nitrogen [Mass/Vol] 44 mg/dL High 9 - 23 mg/dL [facility] Nursing Noteon 12-04-2024 Nursing Note [facility] upcoming transportation at 1300. Ailyn nurse took report. Normal [facility] Nursing Note Patient confused, patient cannot swallow her medications or swallow fluids, and could aspirate, medications crushed with apple sauce and doctor notified and new order for evaluation. Normal [facility] Progress Noteon 12-04-2024 Progress Note Speech-Language Pathology SPEECH LANGUAGE PATHOLOGY [facility] Dysphagia Treatment Note Patient Name: Yelena Chandra Evaluation Date: 12/04/2024 Date of : 1935 Admission Date: 11/30/2024 10:21 PM Age: 89 y.o. [facility] A Subjective Patient alert and cooperative. Seen upright in bed. Answers all basic questions with clear, strong vocal quality. Follows all basic commands. Visitors at bedside - RN. Spoke with RN, Dee, who cleared pt for treatment. Current Diet: Dietary Orders (From admission, onward) Start Ordered 12/03/24 09 Adult diet Dysphagia - Soft and Bite Sized; Low Sodium (2 gm) Diet effective now Question Answer Comment Diet type Dysphagia - Soft and Bite Sized Sodium restriction: Low Sodium (2 gm) 12/03/24 0925 12/02/24 1545 SnacksPM Snack; vesta Ensure High Protein Until discontinued Question Answer Comment Frequency PM Snack Comment vesta Ensure High Protein 12/02/24 1544 Aspiration Precautions: - Upright positioning for all PO intake - Slow rate of intake - Small bites/sips - Alternate solid and liquids - Feed assist Oxygen: Oxygen Therapy: None (Room air) Pain: Pt denies any current pain. PPE Worn: gloves Objective & Assessment Activity 1: re-bse/diet tolerance New dysphagia order placed overnight due to pt unable to swallow pills/liquids for pm RN. Pt was alert and positioned upright in bed this am. No upper dentition, answering questions appropriately, vocal quality appeared normal. Breakfast tray at bedside. GAS COMPRESSOR TURBINE OPERATOR provided 1:1 feed assist. Pt agreeable to PO trials, asking for liquids with a straw It's easier that way". The patient tolerated thin liquids via straw sip x7 trials. Cough observed on initial 2 trials, and then no further coughing was observed throughout the meal/session. Pt accepted puree (yogurt), minced/moist (oatmeal) and soft/bite sized (eggs) with GAS COMPRESSOR TURBINE OPERATOR this am. Further accepted meds whole in puree and crushed in puree. Pt was mildly orally defensive as the meal progress, protruding tongue forward whenpresented with spoon, as to indicate she was getting full. Otherwise, the patient accepted bolus via spoon normally, mastication was timely & complete, min oral residue noted on lingual surface with scrambled eggs, but when offered liquid rinse, cleared fully. No overt s/s of aspiration/penetration noted throughout the breakfast meal. Vocal quality remained clear. Recommending to continue on current diet and provide feeding assist as needed. Pt may have been impacted by "sundowning" for pm RN, which impacted mentation & ability to accept medications. Plan & Recommendations Plan: Continue acute GAS COMPRESSOR TURBINE OPERATOR therapy per initial plan of care and established goals. Recommend Soft and bite-sized solids and Thin liquids and meds as tolerated and the following precautions: - Upright positioning for all PO intake - Slow rate of intake - Small bites/sips - 1:1 Assistance - Alternate solid and liquids - Rest periods during meals D/C Recommendations: to be determined Education Education Given: swallowing strategies, diet recommendations Given To: patient and RN Response: verbalizes understanding Goals Patient Stated Goal: none stated. Encounter Problems Encounter Problems (Active) Swallowing Patient will tolerate the least restrictive diet consistency to allow for safe consumption of daily meals (Progressing) Start: 12/02/24 Expected End: 12/16/24 Patient will demonstrate safe swallowing Intervention/technique s (Progressing) Start: 12/02/24 Expected End: 12/16/24 Patient will use appropriate strategies for increased oralpharyngeal swallow function (Progressing) Start: 12/02/24 Expected End: 12/16/24 Therapy Time GAS COMPRESSOR TURBINE OPERATOR Individual Minutes Time In: 0835 Time Out: 0900 Minutes: 25 Ilsa Smith CCC-GAS COMPRESSOR TURBINE OPERATOR [facility] Progress Note -- Attestation signed by Jennifer Hamm MD at 12/04/2024 6:44 PM [employer] note reviewed. I agree with her assessment and plan. Any variance is mentioned. Plan was formulated together. Resolving NORI Will surely correct in the setting of, resolving ATN Replace electrolytes as necessary Should be okay for discharge from a renal standpoint [facility] Progress Note Subjective/ 89 y.o. year old female who we are seeing in consultation for NORI. Mental status better. Bp okay. nO SOB. Good urine output. ROS Otherwise negative. No change iN PFSH. Objective/ Vitals: 12/03/24 2230 12/04/24 0316 12/04/24 0405 12/04/24 0824 BP: 123/84 132/67 157/80 BP Location: Left arm Left arm Left arm Patient Position: Sitting Sitting Lying Pulse: 75 78 68 82 Resp: 18 18 18 Temp: 36.8 ?C (98.2 ?F) 36.5 ?C (97.7 ?F) 36.3 ?C (97.4 ?F) TempSrc: Temporal Temporal Temporal SpO2: 97% 95% 95% Weight: Height: 24HR INTAKE/OUTPUT: Intake/Output Summary (Last 24 hours) at 12/04/2024 0831 Last data filed at 12/03/2024 1826 Gross per 24 hour Intake 250 ml Output -- Net 250 ml Constitutional: Alert, awake, no apparent distress Head: AT NC Neck: No JVD, no thyromegaly Cardiovascular: S1, S2 without m/r/g Respiratory: CTA B without w/r/r Abdomen: soft, nt Ext: NO B/L pitting LE edema, no tremor. Scheduled Meds[1] Continuous Meds[2] PRN Meds[3] Data/ Recent Labs 12/02/2451812/03/2440312/04/24 0140 WBC 8.8 6.4 6.1 HGB 11.4* 11.7 10.3* HCT 35.9 36.5 32.7* MCV 84.3 84.9 86.3 PLT 316 303 320 Recent Labs 12/02/2451812/03/24 0404 12/04/24 0140 NA 139 138 137 K 3.3* 4.2 3.6 CL 105 103 109* CO2 24 23 19* GLUCOSE 132* 124* 113 MG 2.3 -- -- BUN 47* 57* 44* CREATININE 1.92* 1.69* 1.29* Assessment/ NORI 2/2 ATN (IV contrast. ) CKD IIIA. Hypokalemia. Dementia. F03.9 FTT. Thyroid and parathyroid mass. Plan/ Cr peaked and is starting to improve. Hypokalemia improving too. NO further need for IVF. Avoid further IV contrast. Will follow. Enzo Carey MD [facility] [1] aspirin, 81 mg, Oral, Daily cholecalciferol, 2,000 Units, Oral, Daily enoxaparin, 40 mg, SubCUTAneous, Daily melatonin, 3 mg, Oral, Nightly metoprolol tartrate, 25 mg, Oral, BID miconazole, , Topical, BID pantoprazole, 40 mg, Oral, qAM AC sertraline, 50 mg, Oral, Daily therapeutic multivitamin-minerals, 1 tablet, Oral, Daily [2] [3] PRN medications: acetaminophen OR acetaminophen, melatonin, ondansetron ODT OR ondansetron, polyethylene glycol (PEG) 3350 Normal [facility] [id number] 12-03-2024 [id number] [facility] Alexsander turner through 12/07. Dr. Barnes notified. Tasked weekend case management to follow over the weekend. valuation manager to follow and assist as needed. Normal [facility] Bacteria identified Cx Nom ( U)Ordered By: Torres Javed on 12-03-2024 Interpretation and review of laboratory results Normal [facility] CBC W Auto Differential pane l (Bld)on 12-03-2024 Basophils (Bld) [#/Vol] 0.1 10*3/uL 0.0 - 0.2 10*3/uL [facility] Basophils/100 WBC (Bld) 1.6 % 0.0 - 2.0 % [facility] Eosinophils (Bld) [#/Vol] 0.4 10*3/uL 0.0 - 0.5 10*3/uL [facility] Eosinophils/100 WBC (Bld) 5.8 % 0.0 - 6.0 % [facility] Erythrocyte distribution width (RBC) [Ratio] 14 % 11.5 - 15.0 % [facility] Hematocrit (Bld) [Volume fraction] 36.5 % 35.0 - 47.0 % [facility] Hemoglobin (Bld) [Mass/Vol] 11.7 g/dL 11.7 - 16.0 g/dL [facility] Immature granulocytes (Bld) [#/Vol] 0 10*3/uL NINF - 0.1 10*3/uL [facility] Immature granulocytes/100 WBC (Bld) 0.5 % 0.0 - 2.0 % [facility] Interpretation and review of laboratory results Normal [facility] Lymphocytes (Bld) [#/Vol] 1.6 10*3/uL 1.0 - 4.3 10*3/uL [facility] Lymphocytes/100 WBC (Bld) 24.5 % 15.0 - 45.0 % [facility] MCH (RBC) [Entitic mass] 27.2 pg 26. 0 - 34.0 pg [facility] MCHC (RBC) [Mass/Vol] 32.1 % 30.5 - 36.0 % [facility] MCV (RBC) [Entitic vol] 84.9 fL 77.0 - 99.0 fL [facility] Monocytes (Bld) [#/Vol] 0.8 10*3/uL 0.0 - 0.9 10*3/uL [facility] Monocytes/100 WBC (Bld) 11.9 % 5.0 - 13.0 % [facility] Neutrophils (Bld) [#/Vol] 3.6 10*3/uL 1.8 - 7.5 10*3/uL [facility] Neutrophils/100 WBC (Bld) 55.7 % 38.0 - 82.0 % [facility] Nucleated RBC/100 WBC (Bld) [Ratio] 0 % [facility] Platelet mean volume (Bld) [Entitic vol] 10.4 fL 9.0 - 12.7 fL [facility] Platelets (Bld) [#/Vol] 303 10*3/uL 140 - 440 10*3/uL [facility] RBC (Bld) [#/Vol] 4.3 10*6/uL 3.80 - 5.2 0 10*6/uL [facility] WBC (Bld) [#/Vol] 6.4 10*3/uL 3.6 - 10.7 10*3/uL [facility] CBC WITH AUTO DIFFERENTIALon 12-03-2024 Basophils (Bld) [#/Vol] 0.1 10*3/uL Normal 0.0-0.2 [facility] Comment on above: Performed By: #### L [id number] #### Commercial Accountant: NICKI MONAE ([id number]) [facility] [address] [place] [address] Basophils/100 WBC (Bld) 1.6 % Normal 0.0-2.0 [facility] Comment on above: Performed By: #### L [id number] #### Commercial Accountant: NICKI MONAE ([id number]) [facility] [address] [place] [address] Eosinophils (Bld) [#/Vol] 0.4 10*3/uL Normal 0.0-0.5 [facility] Comment on above: Performed By: #### L [id number] #### Commercial Accountant: NICKI MONAE ([id number]) [facility]) [address] [place] [address] Eosinophils/100 WBC (Bld) 5.8 % Normal 0.0-6.0 [facility] Comment on above: Performed By: #### L [id number] #### Commercial Accountant: NICKI MONAE ([id number]) [facility]) [address] [place] [address] Erythrocyte distribution width (RBC) [Ratio] 14.0 % Normal 11.5-15.0 [facility] Comment on above: Performed By: #### L [id number] #### Commercial Accountant: NICKI MONAE ([id number]) [address] Hematocrit (Bld) [Volume fraction] 36.5 % Normal 35.0-47.0 [facility] Comment on above: Performed By: #### L [id number] #### Commercial Accountant: NICKI MONAE ([id number]) [facility]) [address] [place] [address] Hemoglobin (Bld) [Mass/Vol] 11.7 g/dL Normal 11.7-16.0 [facility] Comment on above: Performed By: #### L [id number] #### Commercial Accountant: NICKI MONAE ([id number]) [facility]) [address] [place] [address] IMMATURE GRANS % 0.5 % Normal 0.0-2.0 [facility] Comment on above: Performed By: #### L [id number] #### Commercial Accountant: NICKI MONAE ([id number]) [address] IMMATURE GRANS ABSOLUTE 0.0 10*3/uL Normal <0.1 [facility] Comment on above: Performed By: #### L [id number] #### Commercial Accountant: NICKI MONAE ([id number]) [facility]) [address] [place] [address] Lymphocytes (Bld) [#/Vol] 1.6 10*3/uL Normal 1.0-4.3 [facility] Comment on above: Performed By: #### L [id number] #### Commercial Accountant: NICKI MONAE ([id number]) [facility]) [address] [place] [address] Lymphocytes/100 WBC (Bld) 24.5 % Normal 15.0-45.0 [facility] Comment on above: Performed By: #### L [id number] #### Commercial Accountant: NICKI MONAE ([id number]) [facility]) [address] [place] [address] MCH (RBC) [Entitic mass] 27.2 pg Normal 26.0-34.0 [facility] Comment on above: Performed By: #### L [id number] #### Commercial Accountant: NICKI MONAE ([id number]) [facility] ([facility]) [address] [place] [address] MCHC 32.1 % Normal 30.5-36.0 [facility] Comment on above: Performed By: #### L [id number] #### Commercial Accountant: NICKI MONAE ([id number]) [facility]) [address] [place] [address] MCV (RBC) [Entitic vol] 84.9 fL Normal 77.0-99.0 [facility] Comment on above: Performed By: #### L [id number] #### Commercial Accountant: NICKI MONAE ([id number]) [facility]) [address] [place] [address] Monocytes (Bld) [#/Vol] 0.8 10*3/uL Normal 0.0-0.9 [facility] Comment on above: Performed By: #### L [id number] #### Commercial Accountant: NICKI MONAE ([id number]) [facility] [address] [place] [address] Monocytes/100 WBC (Bld) 11.9 % Normal 5.0-13.0 [facility] Comment on above: Performed By: #### L [id number] #### Commercial Accountant: NICKI MONAE ([id number]) [facility] [address] [place] [address] NEUTROPHILS ABSOLUTE 3.6 10*3/uL Normal 1.8-7.5 [facility] Comment on above: Performed By: #### L [id number] #### Commercial Accountant: NICKI MONAE ([id number]) [facility] [address] [place] [address] Neutrophils/100 WBC (Bld) 55.7 % Normal 38.0-82.0 [facility] Comment on above: Performed By: #### L [id number] #### Commercial Accountant: NICKI MONAE ([id number]) [facility] [address] [place] [address] NRBC 0.0 /100 WBCs Normal 0.0-2.[address] [facility] Comment on above: Performed By: #### L [id number] #### Commercial Accountant: NICKI MONAE ([id number]) [facility] ([facility]) [address] [place] [address] Platelet mean volume (Bld) [Entitic vol] 10.4 fL Normal 9.0-12.7 [facility] Comment on above: Performed By: #### L [id number] #### Commercial Accountant: NICKI MONAE ([id number]) [facility] [address] [place] [address] [place] Platelets (Bld) [#/Vol] 303 10*3/uL Normal 140-440 [facility] Comment on above: Performed By: #### L [id number] #### Commercial Accountant: NICKI MONAE ([id number]) [facility] ([facility]) [address] [place] [address] [place] RBC (Bld) [#/Vol] 4.30 10*6/uL Normal 3.80-5.20 [facility] Comment on above: Performed By: #### L [id number] #### Commercial Accountant: NICKI MONAE ([id number]) [facility]) [address] [place] [address] WBC (Bld) [#/Vol] 6.4 10*3/uL Normal 3.6-10.7 [facility] Comment on above: Performed By: #### L [id number] #### Commercial Accountant: NICKI MONAE ([id number]) [facility]) [address] [place] [address] COMPLETE URINALYSIS WITH REF MANJU TO CULTUREon 12-03-2024 BACTERIA (#/HPF) IN URINE Few Abnormal Negative [facility] Comment on above: Performed By: #### L [id number] #### Commercial Accountant: NICKI MONAE ([id number]) [address] BILIRUBIN, TOTAL PRESENCE IN URINE Negative Normal Negative [facility] Comment on above: Performed By: #### L [id number] #### Commercial Accountant: NIKCI MONAE ([id number]) [address] Clarity (U) Clear Normal Clear [facility] Comment on above: Performed By: #### L [id number] #### Commercial Accountant: NICKI MONAE ([id number]) [address] Color (U) Yellow Normal Lt. Yellow [facility] Comment on above: Performed By: #### L [id number] #### Commercial Accountant: NICKI MONAE ([id number]) [address] GLUCOSE (MG/DL) IN URINE Normal Normal Nor mal (<70) [facility] Comment on above: Performed By: #### L [id number] #### Commercial Accountant: NICKI [id number]) [facility] ([facility]) [address] [place] [address] HEMOGLOBIN PRESENCE IN URINE Negative Normal Negative [facility] Comment on above: Performed By: #### L [id number] #### Commercial Accountant: NICKI MONAE ([id number]) [facility] ([facility]) [address] [place] [address] HYALINE CASTS (#/LPF) IN URINE SEDIMENT BY MICROSCOPY 0-2 Abnormal Negative [facility] Comment on above: Performed By: #### L [id number] #### Commercial Accountant: NICKI MONAE ([id number]) [facility] ([facility]) [address] [place] [address] Ketones Ql (U) Negative Normal Negative [facility] Comment on above: Performed By: #### L [id number] #### Commercial Accountant: NICKI MONAE ([id number]) [facility] ([facility]) [address] [place] [address] LEUKOCYTE ESTERASE PRESENCE IN URINE BY TEST STRIP 250 Dieter/uL Abnormal Negative [facility] Comment on above: Performed By: #### L [id number] #### Commercial Accountant: NICKI MONAE ([id number]) [facility] ([facility]) [address] [place] [address] [place] MUCUS (#/LPF) IN URINE SEDIMENT Few Normal Negative [facility] Comment on above: Performed By: #### L [id number] #### Commercial Accountant: NICKI MONAE ([id number]) [facility] ([facility]) [address] [place] [address] NITRITE PRESENCE IN URINE Negative Normal Negative [facility] Comment on above: Performed By: #### L [id number] #### Commercial Accountant: NICKI MONAE ([id number]) [facility] ([facility]) [address] [place] [address] pH (U) 5.5 [pH] Normal 5.0-8.0 [facility] Comment on above: Performed By: #### L [id number] #### Commercial Accountant: NICKI MONAE ([id number]) [facility] ([facility]) [address] [place] [address] Protein (U) [Mass/Vol] 10 mg/dL Abnormal Negative [facility] Comment on above: Performed By: #### L [id number] #### Commercial Accountant: NICKI MONAE ([id number]) [facility] ([facility]) [address] [place] [address] RBC (#/HPF) IN URINE SEDIMENT 3-5 Abnormal 0-2 [facility] Comment on above: Performed By: #### L [id number] #### Commercial Accountant: NICKI MONAE ([id number]) [facility] ([facility]) [address] [place] [address] Specific gravity (U) [Rel density] 1.030 Normal 1.005-1.030 [facility] Comment on above: Result Comment: HARPREET Saldivar COMMENTS: A specimen with <=10 WBC is not consistent with inflammation. This specimen will not reflex to a urine culture. Performed By: #### L [id number] #### Commercial Accountant: NICKI MONAE ([id number]) [facility] ([facility]) [address] [place] [address] SQUAMOUS EPITHELIAL CELLS (#/HPF) IN URINE SEDIMENT 0-2 Normal 3-5 [facility] Comment on above: Performed By: #### L [id number] #### Commercial Accountant: NICKI MONAE ([id number]) [facility] ([facility]) [address] [place] [address] UROBILINOGEN (MG/DL) IN URINE 2 mg/dL Abnormal Normal (0-1) [facility] Comment on above: Performed By: #### L [id number] #### Commercial Accountant: NICKI MONAE ([id number]) [facility] ([facility]) [address] [place] [address] WBC (LEUKOCYTE) (#/HPF) IN URINE SEDIMENT 3-5 Normal 0-5 [facility] Comment on above: Performed By: #### L [id number] #### Commercial Accountant: NICKI MONAE ([id number]) [facility] ([facility]) [address] [place] [address] COMPREHENSIVE METABOLIC PANE Killian 12-03-2024 Albumin [Mass/Vol] 2.4 g/dL Low 3.4-4.8 [facility] Comment on above: Performed By: #### L [id number] #### Commercial Accountant: NICKI MONAE ([id number]) [facility] ([facility]) [address] [place] [address] ALP [Catalytic activity/Vol] 75 U/L Normal 40-150 [facility] Comment on above: Performed By: #### L [id number] #### Commercial Accountant: NICKI MONAE ([id number]) [facility] ([facility]) [address] [place] [address] ALT [Catalytic activity/Vol] 10 U/L Normal <30 [facility] Comment on above: Performed By: #### L [id number] #### Commercial Accountant: NICKI MONAE ([id number]) [facility] ([facility]) [address] [place] [address] Anion gap [Moles/Vol] 12 mmol/L Normal 3-13 [facility] Comment on above: Performed By: #### L [id number] #### Commercial Accountant: NICKI MONAE ([id number]) [facility] ([facility]) [address] [place] [address] AST [Catalytic activity/Vol] 27 U/L Normal <34 [facility] Comment on above: Performed By: #### L [id number] #### Commercial Accountant: NICKI MONAE ([id number]) [facility] ([facility]) [address] [place] [address] Bilirubin [Mass/Vol] 0.3 mg/dL Normal <1.2 [facility] Comment on above: Performed By: #### L [id number] #### Commercial Accountant: NICKI MONAE ([id number]) [facility]) [address] [place] [address] Calcium [Mass/Vol] 8.5 mg/dL Low 8.8-10.0 [facility] Comment on above: Performed By: #### L [id number] #### Commercial Accountant: NICKI MONAE ([id number]) [facility] ([facility]) [address] [place] [address] Chloride [Moles/Vol] 103 mmol/L Normal 98-107 [facility] Comment on above: Performed By: #### L [id number] #### Commercial Accountant: NICKI MONAE ([id number]) [facility] [address] [place] [address] [place] CO2 [Moles/Vol] 23 mmol/L Normal 23-31 [facility] Comment on above: Performed By: #### L [id number] #### Commercial Accountant: NICKI MONAE ([id number]) [facility] ([facility]) [address] [place] [address] Creatinine [Mass/Vol] 1.69 mg/dL High 0.57-1.11 [facility] Comment on above: Performed By: #### L [id number] #### Commercial Accountant: NICKI MONAE ([id number]) [facility] ([facility]) [address] [place] [address] GLOMERULAR FILTRATION RATE ML/MIN/1.73 SQ M.PREDICTED 29.1 mL/min/1.73m*2 Low >60.0 [facility] Comment on above: Result Comment: Calc ulation based on the Chronic Kidney Disease Epidemiology Collaboration (CKD-EPI) equation refit without adjustment for race Performed By: #### L [id number] #### Commercial Accountant: NICKI MONAE ([id number]) [facility] [address] [place] [address] Glucose [Mass/Vol] 124 mg/dL High 82-115 [facility] Comment on above: Performed By: #### L [id number] #### Commercial Accountant: NICKI MONAE ([id number]) [facility]) [address] [place] [address] Potassium [Moles/Vol] 4.2 mmol/L Normal 3.5-5.1 [facility] Comment on above: Result Comment: [facility] potassium values may be up to 0.5 mmol/L lower than serum values. Performed By: #### L [id number] #### Commercial Accountant: NICKI MONAE ([id number]) [facility] ([facility]) [address] [place] [address] Protein [Mass/Vol] 6.0 g/dL Low 6.4-8.3 [facility] Comment on above: Performed By: #### L [id number] #### Commercial Accountant: NICKI MONAE ([id number]) [facility] ([facility]) [address] [place] [address] Sodium [Moles/Vol] 138 mmol/L Normal 136-145 [facility] Comment on above: Performed By: #### L [id number] #### Commercial Accountant: NIKCI MONAE ([id number]) [facility] ([facility]) [address] [place] [address] Urea nitrogen [Mass/Vol] 57 mg/dL High 9-23 [facility] Comment on above: Performed By: #### L [id number] #### Commercial Accountant: NICKI MONAE ([id number]) [facility] [address] [place] [address] Comprehensive metabolic 1998 panelon 12-03-2024 Albumin [Mass/Vol] 2.4 g/dL Low 3.4 - 4.8 g/dL [facility] ALP [Catalytic activity/Vol] 75 U/L 40 - 150 U/L [facility] ALT [Catalytic activity/Vol] 10 U/L NINF - 30 U/L [facility] Anion gap [Moles/Vol] 12 mmol/L 3 - 13 mmol/L [facility] AST [Catalytic activity/Vol] 27 U/L NINF - 34 U/L [facility] Bilirubin [Mass/Vol] 0.3 mg/dL NINF - 1.2 mg/dL [facility] Calcium [Mass/Vol] 8.5 mg/dL Low 8.8 - 10. 0 mg/dL [facility] Chloride [Moles/Vol] 103 mmol/L 98 - 10 7 mmol/L [facility] CO2 [Moles/Vol] 23 mmol/L 23 - 31 mmol/L [facility] Creatinine [Mass/Vol] 1.69 mg/dL High 0.57 - 1.11 mg/dL [facility] GFR/1.73 sq M.predicted (S/P/Bld) [Vol rate/Area] 29.1 mL/min Low - PINF [facility] Comment on above: Calculation based on the Chronic Kidney Disease Epidemiology Collaboration (CKD-EPI) equation refit without adjustment for race Glucose [Mass/Vol] 124 mg/dL High 82 - 115 mg/dL [facility] Interpretation and review of laboratory results Abnormal [facility] Potassium [Moles/Vol] 4.2 mmol/L 3.5 - 5.1 mmol/L [facility] Comment on above: Plasma potassium thea ues may be up to 0.5 mmol/L lower than serum values. Protein [Mass/Vol] 6 g/dL Low 6.4 - 8.3 g/dL [facility] Sodium [Moles/Vol] 138 mmol/L 136 - 145 mmol/L [facility] Urea nitrogen [Mass/Vol] 57 mg/dL High 9 - 23 mg/dL [facility] - Chemistry and C hemistry - challengeon 12-03-2024 Sodium (24H U) [Mass/Vol] 23 mmol/L [facility] - Microbiology an d Antimicrobial susceptibilityOrdered By: Torers Javed on 12-03-2024 Bacteria identified Cx Nom (U) No growth (<1,000 CFU/mL) [facility] No Panel Informationon 12-03 CREATININE, URINE 138.1 mg/dL High 47.0 - 110.0 mg/dL [facility] Interpretation and review of laboratory results Abnormal [facility] SODIUM, URINE, FRACTIONAL EXCRETION [facility], [facility], TUBULAR REABSORPTION 1 [facility] Progress Noteon 12-03-2024 Progress Note OCCUPATIONAL THERAPY [facility] Treatment Note Name/MRN: Yelena Chandra ([id number]) Date of : 1935 Age: 89 y.o. Room/Bed: B2-260/B2-260 A Visit #: 2 out of 5 Discharge Recommendation: Nursing Home Facility Equipment Needed: No Assessment Patient seen for OT treatment this date focusing on functional transfers/mobility, bathroom level toileting, hand hygiene, oral hygiene, face washing, and lower body dressing this date. She requires increased time to complete all functional tasks this date. She was able to complete transfers mobility with min assist to contact-guard assist overall for stability with increased reliance on front wheel walker. She required min assist overall for lower body dressing this date to don hospital briefs and pants. She requires near total cueing this date for sequencing initiation of all functional tasks. She was able to complete oral hygiene and face washing and sitting at edge of bed this date with set up assist overall with increased cueing throughout for sequencing. She will continue benefit from skilled OT services to improve her independence, safety, and endurance. Continue to recommend plan discharge for SNF at this time. Subjective Pleasant and cooperative. OK to see per RN. Agreeable to therapy evaluation. Pain: Pt denies any current pain. Medical Precautions: No active isolations Proper PPE donned/doffed in accordance with facility standards. Fall Risk: Velarde Fall Risk Score: 60 (High Risk) Precautions/Restrictio ns: N/A Family/Caregiver Present: none Objective ADLs LE Dressing: Min Assist Toileting: Min Assist Grooming: after setup Patient requires increased time to complete all functional tasks this date. She was able to complete bath and level toileting with min assist overall. No physical assist for ASTRID care this date however increased assist for clothing management at this time for thoroughness. Patient requires near total cueing this date for sequencing completion of toileting task. Multiple times patient asks "what do I do next" and requires redirection. She was able to complete hand hygiene at sink level with contact-guard assist overall for safety and stability. Good front wheel walker management noted at this time. She completed oral hygiene and face washing task and sitting at edge of bed with set up assist overall. She was able to don hospital pants and briefs this date with min assist overall. Patient able to thread right lower extremity through without physical assist however minimal assistance required for left lower extremity this date secondary to increased fatigue following other functional activities and mobility. Patient required minimal assist to manage up over hips posteriorly in standing. Continues to require near-total sequencing initiation cues throughout. Bed Mobility Sit to supine: SBA Scooting: SBA Patient up in bathroom with physical therapy upon arrival. Direct handoff from physical therapist to initiate the session. Standby assist overall for return to supine or following return to bed. Patient able to manage lower extremities and trunk into bed without physical assist. Transfers/Mobility Sit to stand: Min Assist Stand to sit: Contact Guard Toilet: Contact Guard Functional mobility: Contact Guard, Min Assist Patient completes sit to stands x 3 this date during session. Initial sit to stand completed from toilet to front wheel walker with increased cueing provided for proper hand placement at grab bars and front wheel walker for stability. Contact-guard assist overall for them to standing with no physical assist for stability initially required. Increased cueing throughout for sequencing, hand placement, and safety. Good follow-through of cueing however poor carryover noted between times. She was able to complete short mobility from bathroom to sink level with contact-guard assist overall and fair device management noted throughout. Occasional cueing required for obstacle negotiation. She required min assist overall for mobility following hand hygiene at sink level for return mobility to bed. Increased assist required for front wheel walker management as well as increasing instability secondary to fatigue. She was able to complete x 2 additional transfers from edge of bed during completion of lower body dressing task. Poor carryover of initial education noted at this time with min assist overall for lifting to standing this date. Device(s) used: Front wheeled walker Cognition - Following commands: follows one step commands with increased time, follows one step commands with repetition, follows multi-step commands with increased time, and follows multi-step commands with repetition - Attention span: difficulty attending to directions - Memory: decreased recall of recent events and decreased short term memory - Safety judgement: decreased awareness o (more content not included)... Normal [facility] Progress Note [facility] Geriatric Medicine Inpatient Consult Service Admission Date: 11/30/2024 Assessment Principal Problem: Dementia, unspecified dementia severity, unspecified dementia type, unspecified whether behavioral, psychotic, or mood disturbance or anxiety ([facility]) Active Problems: Moderate malnutrition (CMS/HCC) ([facility]) Debility At risk for delirium Plan Debility -Contributing factors include: physical deconditioning, Dementia, arthritis, moderate malnutrition -Lives with sister Julianne who assists with ADLs and IADLs -Concern for poor condition of home. Social work made APS referral. -Uses a walker and a wheelchair for longer distance -Dietary consulted -Physical Therapy and Occupational Therapy recommend SNF -Sister is agreeable with plan for SNF with goal to return home if patient able to ambulate 12/03: Stable plan. Ancipitate discharge to SNF when medically ready Dementia -Due to impaired insight and cognition, her NOK/POA should assist with discharge planning -Previously diagnosed per PCP records. -Recommend follow up at [facility] ([place] [facility]) for geriatric cognitive evaluation when in usual state of health. Referral placed. 12/03: She appears at her cognitive baseline today Depression -Continue home Sertraline 50 mg daily 12/03: no reports of poor mood. Continue sertraline At Risk for Delirium -12/03: She does not appear delirious today -If antipsychotics are necessary for agitation, recommend seroquel 12.5 mg BID prn agitation (first line) and haldol 0.5 mg IM q6hr prn agitation (2nd line) -qtc 470 -Risk factors include: age, dementia, NORI, possible infection -Delirium Protocol -Melatonin nightly insomnia -Avoid sedating/anticholinerg ic medications -Encourage family visits -Encourage sleep hygiene -Minimize barriers to nutrition -Optimize sensory input and access to assistive devices where indicated -Encourage time up in chair - including at meals - as able -Unless contraindicated, encourage regular ambulation with assistance -D/c Phillips, restraints, IV lines, as able -Notified primary patient no longer on Amlodipine at home Vitamin D insufficiency --Vit D 25 --Continue Vit D3 2,000 units daily 12/03: stable plan Follow-up: will follow with you Subjective Chief Complaint: weakness Geriatrics consulted for Dementia, agitation HPI- The patient is known to me. 89 y.o. year-old female with past medical history of arthritis, dementia, malnutrition, chronic kidney disease, hypertension who presented to hospital with failure to thrive. She lives with her sister and was reported to have difficulty ambulating. House cluttered with smell of urine. CT head - chronic microvascular change. Trouble moving right leg. Xray of knee showed degenerative change, small knee joint effusion. Pelvic xray with degenerative changes. 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 Ultrasound-guided FNA suggested. Also, noted with NORI. Reviewed today's primary team progress note - more alert and awake. Reviewed yesterday's nephrology consult note - Nori likely ATN from IV contrast dye CMP: BUN 57, Creatinine 1.69, albumin 2.4 Interval History: She is feeling well. Says she slept well. Appetite OK. Denies pain or feeling sick Review of Systems Constitutional: Negative for fever. Respiratory: Negative for shortness of breath. Cardiovascular: Negative for leg swelling. Gastrointestinal: Negative for abdominal pain, constipation, diarrhea and nausea. Genitourinary: Negative for dysuria. Musculoskeletal: Negative for arthralgias and myalgias. Psychiatric/Behavioral : Positive for confusion (chronic). Objective BP 140/73 (BP Location: Left arm, Patient Position: Lying) Pulse 83 Temp 36.6 ?C (97.8 ?F) (Temporal) Resp 16 Ht 5' 4" (1.626 m) Wt 161 lb 14.4 oz (73.4 kg) SpO2 95% BMI 27.79 kg/m? No intake or output data in the 24 hours ending 12/03/24 1125 Wt Readings from Last 3 Encounters: 11/30/24 161 lb 14.4 oz (73.4 kg) 07/14/23 151 lb (68.5 kg) 08/01/22 183 lb (83 kg) Current Medications[1] Physical Exam Constitutional: General: She is not in acute distress. Appearance: She is not ill-appearing. HENT: Head: Normocephalic and atraumatic. Neck: Cardiovascular: Rate and Rhythm: Normal rate and regular rhythm. Heart sounds: No murmur heard. No friction rub. No gallop. Pulmonary: Effort: Pulmonary effort is normal. Breath sounds: Normal breath sounds. No decreased breath sounds, wheezing, rhonchi or rales. Comments: Auscultated anteriorly only Abdominal: General: There is no distension. Palpations: Abdomen is soft. Tenderness: There is no abdominal tenderness. There is no guarding or rebound. Musculoskeletal: Right low (more content not included)... Normal [facility] Progress Note PHYSICAL THERAPY [facility] Treatment Note Name/MRN: Yelena Chandra ([id number]) Date of : 1935 Age: 89 y.o. Room/Bed: B2-260/B2-260 A Visit #: 2 out of 7 visits Discharge Recommendation: Nursing Home Facility Equipment Needed: No Other: TBD at next level of care Assessment Pt is progressing toward PT goals and demos decreased assistance for transfers/gait since last session. Pt completed bed mobility with modA, transfers with Ezekiel, and ambulation with FWW with Ezekiel. Pt is limited by generalized weakness, balance, and impaired cognition. Pt will benefit from continued skilled PT to maximize functional potential. Recommend SNF. Subjective Patient pleasant and agreeable to therapy. Handoff to OT Pain: Pt denies any current pain. Medical Precautions: No active isolations Proper PPE donned/doffed in accordance with facility standards. Fall Risk: Velarde Fall Risk Score: 60 (High Risk) Precautions/Restrictio ns: N/A Overall Cognitive Status: Exceptions - Following commands: follows one step commands with increased time and follows one step commands with repetition - Memory: decreased short term memory - Safety judgement: decreased awareness of need for safety - Problem solving: assistance required to generate solutions, assistance required to implement solutions, assistance required to identify errors made, assistance required to correct errors made, and decreased awareness of errors - Insights: decreased awareness of deficits - Sequencing: requires cues for some Family/Caregiver Present: none Objective Bed Mobility Supine to sit: Mod Assist HOB elevated and use of bed rail. Pt required cues for proper sequencing. Increased time to perform. ModA required to scoot hips fwd and bring trunk upright. No complaints of dizziness with positional changes. Transfers/Mobility Sit to stand: Min Assist Stand to sit: Min Assist From EOB x3 trials. Cues for proper hand placement. Pt required Ezekiel overall for stability when ascending/descending. Limited carryover demonstrated. Continued edu warranted to improve safety of transfers. Pt completed static standing and weight shifting in prep for ambulation. Device(s) used: Front wheeled walker Ambulation Ambulation 1 Assistive device(s) used: Front wheeled walker Assist level: Min Assist Distance (ft): 20' x1 Quality of gait: reciprocal stepping, slow kathleen, instability through all phases. Pt demos decreased stride length/toe clearance and general unsteadiness. Cues to improve posture and for safety with FWW. Pt demos decreased overall safety awareness. No LOB noted. Pt fatigues fairly quickly with ambulation. Pt also completed side stepping (~5' in each direction x2 trials) along EOB with FWW Ezekiel in prep for ambulation. Plan Continue acute PT per plan of care. Safety/Education Safety Safety Devices in place: All fall risk precautions in place, call light within reach, gait belt, patient at risk for falls, no alarms engaged upon entry, and left with OT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 For Exam: UTI, recurrent/complicated (Female) CT ABDOMEN AND PELVIS WITHOUT IV CONTRAST CLINICAL INDICATION: Complicated UTI. TECHNIQUE: Multidetector axial CT images through the abdomen and pelvis were obtained without IV contrast. No oral contrast was administered. Images were reconstructed in sagittal and coronal planes. Dose reduction was employed with automated exposure control. COMPARISON: None. FINDINGS: This examination is limited for the evaluation of solid organs and vascular structures due to the lack of intravenous contrast. Lower thorax: Normal. Stomach: Unremarkable. Liver: Normal size and contours. Normal hepatic parenchyma. No focal lesion. Biliary tree: Unremarkable gallbladder by CT. No biliary dilatation Spleen: Normal Adrenals: Normal. Pancreas: 1.3 x 3.3 cm cystic lesion appearing to extend from the posterior aspect of the pancreas body (axial images 64-72). Otherwise unremarkable. Right kidney and collecting system: No contour abnormality or focal renal lesion identified. No calculi, hydronephrosis or ureteral dilatation. Left kidney and collecting system: No contour abnormality or focal renal lesion identified. No calculi, hydronephrosis or ureteral dilatation. Free air or fluid: None. Mesenteric/retroperito natalee: No adenopathy or inflammation. Aorta: Normal caliber. Bowel: No inflammatory changes. No dilatation is noted. Pelvic organs/viscera: The uterus is not identified. Bladder: Contrast distends the urinary bladder. No wall thickening or filling defect. Inguinal: No lymphadenopathy. Abdominal wall/soft tissues: No ventral hernia is evident. Osseous structures: Advanced multilevel degenerative changes including 5 mm L3-4 and 7 mm L4-5 anterolisthesis. [facility] Billy Rogers MD - 12/02/2024 Patient Name: YELENA CHANDRA : 1935 Exam Date/Time: 12/02/2024 14:09 Procedure: CT ABDOMEN PELVIS WO IV CONTRAST Ordering Provider: BARNES PRAMOD Reason For Exam: UTI, recurrent/complicated (Female) CT ABDOMEN AND PELVIS WITHOUT IV CONTRAST CLINICAL INDICATION: Complicated UTI. TECHNIQUE: Multidetector axial CT images through the abdomen and pelvis were obtained without IV contrast. No oral contrast was administered. Images were reconstructed in sagittal and coronal planes. Dose reduction was employed with automated exposure control. COMPARISON: None. FINDINGS: This examination is limited for the evaluation of solid organs and vascular structures due to the lack of intravenous contrast. Lower thorax: Normal. Stomach: Unremarkable. Liver: Normal size and contours. Normal hepatic parenchyma. No focal lesion. Biliary tree: Unremarkable gallbladder by CT. No biliary dilatation Spleen: Normal Adrenals: Normal. Pancreas: 1.3 x 3.3 cm cystic lesion appearing to extend from the posterior aspect of the pancreas body (axial images 64-72). Otherwise unremarkable. Right kidney and collecting system: No contour abnormality or focal renal lesion identified. No calculi, hydronephrosis or ureteral dilatation. Left kidney and collecting system: No contour abnormality or focal renal lesion identified. No calculi, hydronephrosis or ureteral dilatation. Free air or fluid: None. Mesenteric/retroperito natalee: No adenopathy or inflammation. Aorta: Normal caliber. Bowel: No inflammatory changes. No dilatation is noted. Pelvic organs/viscera: The uterus is not identified. Bladder: Contrast distends the urinary bladder. No wall thickening or filling defect. Inguinal: No lymphadenopathy. Abdominal wall/soft tissues: No ventral hernia is evident. Osseous structures: Advanced multilevel degenerative changes including 5 mm L3-4 and 7 mm L4-5 anterolisthesis. IMPRESSION: 1. No evidence of an acute infectious or inflammatory process in the abdomen or pelvis. 2. 1.3 x 3.3 cm cystic lesion appearing to extend from the posterior aspect of the pancreas body. A side branch intraductal papillary mucinous neoplasm an follow-up MRI/MRCP can be obtained for further evaluation. Report Dictated on Electronically Signed By: Billy Rogers MD Electronically Signed Date/Time: 12/02/2024 3:53 PM EDT [employer] Radiology Study observation (narrative) [facility] alth CT Abdomen and Pelvis WO con trastOrdered By: Billy Rogers on 12-02-2024 [employer] Work Phone: Comprehensive metabolic 1998 panelon 12-02-2024 Albumin [Mass/Vol] 2.3 g/dL Low 3.4 - 4.8 g/dL [facility] ALP [Catalytic activity/Vol] 83 U/L 40 - 150 U/L [facility] ALT [Catalytic activity/Vol] 9 U/L NINF - 30 U/L [facility] Anion gap [Moles/Vol] 10 mmol/L 3 - 13 mmol/L [facility] AST [Catalytic activity/Vol] 29 U/L NINF - 34 U/L [facility] Bilirubin [Mass/Vol] 0.4 mg/dL NINF - 1.2 mg/dL [facility] Calcium [Mass/Vol] 8.4 mg/dL Low 8.8 - 10. 0 mg/dL [facility] Chloride [Moles/Vol] 105 mmol/L 98 - 10 7 mmol/L [facility] CO2 [Moles/Vol] 24 mmol/L 23 - 31 mmol/L [facility] Creatinine [Mass/Vol] 1.92 mg/dL High 0.57 - 1.11 mg/dL [facility] GFR/1.73 sq M.predicted (S/P/Bld) [Vol rate/Area] 25 mL/min Low - PINF [facility] Comment on above: Calculation based on the Chronic Kidney Disease Epidemiology Collaboration (CKD-EPI) equation refit without adjustment for race Glucose [Mass/Vol] 132 mg/dL High 82 - 115 mg/dL [facility] Potassium [Moles/Vol] 3.3 mmol/L Low 3.5 - 5.1 mmol/L [facility] Comment on above: Plasma potassium thea ues may be up to 0.5 mmol/L lower than serum values. Protein [Mass/Vol] 6.1 g/dL Low 6.4 - 8.3 g/dL [facility] Sodium [Moles/Vol] 139 mmol/L 136 - 145 mmol/L [facility] Urea nitrogen [Mass/Vol] 47 mg/dL High 9 - 23 mg/dL [facility] Consulton 12-02-2024 Consult Nutrition Assessment Type and Reason for Visit: Initial, Consult Nutrition Recommendations/Plan: Suggest 3-4 gm sodium diet. Outreach Nurse to assist with menu selections soft foods -diet office notified Per mnt protocol will add Ensure High Protein once daily (160 kcal, 16 gm protein) monitor kennedy and PO intake of meals -modify as needed Please record meal and supplement intakes in RN Flowsheets RD to monitor labs, weight, skin status, PO intake -follow up weekly Malnutrition Assessment: Malnutrition Status: Moderate malnutrition Context: Chronic Illness Findings of the 6 clinical characteristics of malnutrition: Energy Intake: 75% or less estimated energy requirements for 1 month or longer (suspected) Weight Loss: Unable to assess Body Fat Loss: Mild body fat loss Triceps Muscle Mass Loss: Mild muscle mass loss Temples (temporalis), Hand (interosseous) (suspect also age related loss) Fluid Accumulation: Mild Extremities Disability Services Coordinator Strength: Not Performed Nutrition Assessment: 89 y.o. female admits with dementia with behavioral changes, failure to thrive, NORI, HTN, elevated HS troponin - tending down, mild leucocytosis - improved, thyroid and parathyroid mass -follow up as an outpatient. Pt observed eating lunch with good intake/ pt reports +appetite, states she is able to chew without difficulty but may benefit from softer foods -poor dentition. Pt denies wt loss. bed scale wt 144.6 lb. Family not in room. pmhx anxiety, HTN, arthritis Estimated Daily Nutrient Needs: Energy Requirements Based On: Kcal/kg Weight Used for Energy Requirements: [place] Weight for Energy Calculation (kg): 55 kg Total Energy Requirements (kcals/day): 1673-0376 (25-30) Weight Used for Protein Requirements: [place] Weight in Kg Used for Protein Requirements: 55 kg Estimated Total Protein (g/day): 44-66 (.8-1.2) monitor renal function Estimated Daily Total Fluid (ml/day): per MD Nutrition Related Findings: +1 patricia LE edema. bm loose/watery 12/01. crp 205.5, procal 2.84, alb 2.3. suspect wt loss but wt hx hard to interpret -?accuracy of bed scale wts Wound Type: Wound Consult Pending (red area coccyx per nursing) 12/02/24 144.6 lb Wt Readings from Last 50 Encounters: 11/30/24 73.4 kg (161 lb 14.4 oz) 07/14/23 68.5 kg (151 lb) 08/01/22 83 kg (183 lb) Labs and meds reviewed: Scheduled Meds[1] Continuous Meds[2] Lab Results Component Value Date GLUCOSE 132 (H) 12/02/2024 CALCIUM 8.4 (L) 12/02/2024 NA 139 12/02/2024 K 3.3 (L) 12/02/2024 CO2 24 12/02/2024 CL 105 12/02/2024 BUN 47 (H) 12/02/2024 CREATININE 1.92 (H) 12/02/2024 Lab Results Component Value Date WBC 8.8 12/02/2024 HGB 11.4 (L) 12/02/2024 HCT 35.9 12/02/2024 MCV 84.3 12/02/2024 PLT 316 12/02/2024 Lab Results Component Value Date ALT 9 12/02/2024 AST 29 12/02/2024 ALKPHOS 83 12/02/2024 BILITOT 0.4 12/02/2024 No results for input(s): "POCGLU" in the last 72 hours. Lab Results Component Value Date HGBA1C 5.3 08/01/2022 Lab Results Component Value Date VITD25 25 12/02/2024 Lab Results Component Value Date CHOL 186 08/02/2022 HDL 80 (H) 08/02/2022 TRIG 77 08/02/2022 Current Nutrition Therapies: Adult diet Regular; Low Sodium (2 gm) Current Oral Intake Average Meal Intake: 51-75% Average Supplements Intake: None Ordered Anthropometric Measures: Height: 162.6 cm (5' 4") Current Body Weight: 65.6 kg (144 lb 9.6 oz) (bed scale) Weight Source: Bed Scale Admission Body Weight: 73 kg (161 lb) Usual Body Weight: 59 kg (130 lb) (per pt) % Weight Change (Calculated): 11.2 [place] Body Weight (lbs) (Calculated): 120 lbs [place] Body Weight (Kg) (Calculated): 55 kg % [place] Body Weight (Calculated): 120.5 % BMI (kg/m2) (Calculated): 24.8 Weight Adjustment For: No Adjustment BMI Categories: Normal Weight (BMI 22.0 to 24.9) age over 65 Nutrition Diagnosis: Moderate malnutrition, In context of chronic illness related to inadequate protein-energy intake (predicted) as evidenced by mild loss of subcutaneous fat, mild muscle loss (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) Nutrition Interventions: Nutrition Education/Counseling: No recommendation at this time Coordination of Nutrition Care: Continue to monitor while inpatient Plan of Care discussed with: Pt Goals: Goals: PO intake 75% or greater, by next RD assessment Nutrition Monitoring and Evaluation: Behavioral-Environment al Outcomes: Knowledge or Skill Food/Nutrient Intake Outcomes: Food and Nutrient Intake, Supplement Intake Physical Signs/Symptoms Outcomes: Biochemical Data, Chewing or Swallowing, Diarrhea, Nausea or Vomiting, Fluid Status or Edema, Hemodynamic Status, Nutrition Focused Physical Findings, Skin, Weight Discharge Planning: Too soon to determine Jory Galdamez RD Contact: *[phone] or via Secure Chat [1] aspirin, 81 mg, Oral, Daily [START ON 12/04/2024] cholecalciferol, 2,000 Units, Oral, Daily enoxaparin, 40 mg, SubCUTAneous, Da (more content not included)... Normal [facility] Laboratory - Chemistry and C hemistry - challengeon 12-02-2024 CK [Catalytic activity/Vol] 31 U/L 30 - 185 U/L [facility] Magnesium [Mass/Vol] 2.3 mg/dL 1.6 - 2 .6 mg/dL [facility] Procalcitonin [Mass/Vol] 2.84 ng/mL High JANINE F - 0.07 ng/mL [facility] 25-hydroxyvitamin D3 [Mass/Vol] 25 ng/mL 20 - 50 ng/mL [facility] TSH Qn 0.98 m[IU]/L [facility] CRP [Mass/Vol] 205.5 mg/L High NINF - 5.0 mg/L [facility] MAGNESIUMon 12-02-2024 Magnesium [Mass/Vol] 2.3 mg/dL Normal 1.6-2.6 [facility] Comment on above: Result Comment: HARPREET Saldivar COMMENTS: Higher values can be expected in females during menses. Performed By: #### L AB103, LAB62, [id number], [id number], LAB17 ####Commercial Accountant: HILDA MACEDO ([id number])[facility] ([facility] [place] [address] Magnesium [Mass/Vol]on 12-02 Interpretation and review of laboratory results Normal [facility] Higher values can be expected in females during menses. [facility] No Panel Informationon 12-02 Interpretation and review of laboratory results Normal [facility] Interpretation and review of laboratory results Abnormal [facility] PROCALCITONIN TESTon 025 PROCALCITONIN 2.84 ng/mL High <0.07 [facility] [facility] Comment on above: Result Comment: HARPREET Saldivar COMMENTS: PCT <0.50 = Low risk of severe sepsis and/or septic shock. PCT >2.00 = High risk of severe sepsis and/or septic shock. Performed By: #### L [id number], LAB62, [id number], [id number], [id number] ####Commercial Accountant: HILDA MACEDO ([id number])[facility] ([facility])[address] [place] [address] Procalcitonin [Mass/Vol]on 0 12-02-2024 Interpretation and review of laboratory results Abnormal [facility] PCT <0.50 = Low risk of severe sepsis and/or septic shock. PCT >2.00 = High risk of severe sepsis and/or septic shock. [facility] Progress Noteon 12-02-2024 Progress Note OCCUPATIONAL THERAPY [facility] Treatment Note Name/MRN: Yelena Chandra ([id number]) Date of : 1935 Age: 89 y.o. Room/Bed: B2-260/B2-260 A Visit #: 1 out of 5 Discharge Recommendation: Nursing Home Facility Equipment Needed: No Assessment Pt seen for OT treatment this date focusing on functional transfers / mobility, LB dressing, hand hygiene, and bathroom level toileting. No true LOB with OOB activity at this time, however increased cueing required this date for sequencing and initiation. She was able to complete transfers with MIN A - CGA this date, short mobility with MIN A overall, toileting with MIN A, and LB dressing with MIN A overall this date. She is limited by diminished cognition, increased fatigue, and increased instability at this time. Increased time required to complete all functional tasks. She would benefit from continued skilled OT services to improve her endurance, independence, and safety at this time. Continue to recommend planned discharge for SNF this date. Subjective Pleasant and cooperative. Agreeable to therapy treatment at this time. Pain: Pt denies any current pain. Medical Precautions: No active isolations Proper PPE donned/doffed in accordance with facility standards. Fall Risk: Prachi Fall Risk Score: 60 (High Risk) Precautions/Restrictio ns: N/A Family/Caregiver Present: none Objective ADLs LE Dressing: Min Assist Toileting: Min Assist Increased time required to complete all functional tasks this date. No true LOB noted during completion, however increased noted posterior lean with OOB activity at this time. She was able to complete LB dressing this date with MIN A overall. She was able to thread LLE through hospital briefs with no physical assist, and required increased assist for RLE management this date. She was able to manage briefs over hips anteriorly, however required increased assist from therapist to manage posteriorly over buttocks. She required increased cueing for sequencing and initiation during completion of dressing tasks. She was able to complete bathroom level toileting with MIN A overall this date. No physical assist clothing management to doff briefs. She was able to complete pericare without physical assist. She required MIN A for clothing management to don briefs over buttocks again. Increased reliance on grab bars and FWW for stability during standing ADLs. She completed hand hygiene at sink level with good FWW management and CGA overall for stability. Bed Mobility Supine to sit: SBA Sit to supine: SBA Scooting: SBA HOB elevated. Increased time to complete. Denies dizziness with positional changes. Increased reliance on bed rails to complete. No physical assist for BLE management or trunk control. Transfers/Mobility Sit to stand: Min Assist Stand to sit: Contact Guard Toilet: Contact Guard Functional mobility: Contact Guard, Min Assist Pt completed sit<>stands x3 this date, progressing from MIN A to CGA on final attempt. Pt completed sit<>stands x2 from EOB to FWW this date with MIN A overall for lift into standing. Increased cueing this date for sequencing, initiation, and proper hand placement / BLE management for proper GILLIAN. Denies dizziness with positional changes. She completed short mobility in room with MIN A - CGA fluctuating. Occasional posterior lean noted during mobility this date with increased assist from therapist to correct. Cueing for proper FWW management required throughout. She was able to complete toilet transfer with CGA overall and increased cueing for use of grab bars for increased stability. Good BLE management noted during completion. Device(s) used: Front wheeled walker Cognition - Following commands: follows one step commands with increased time, follows one step commands with repetition, follows multi-step commands with increased time, and follows multi-step commands with repetition - Attention span: difficulty attending to directions - Memory: decreased recall of recent events and decreased short term memory - Safety judgement: decreased awareness of need for assistance and decreased awareness of need for safety - Problem solving: assistance required to generate solutions, assistance required to implement solutions, assistance required to identify errors made, and assistance required to correct errors made - Insights: not aware of deficits - Initiation: requires cues for some - Sequencing: requires cues for some Plan Continue acute OT per plan of care. Safety/Education Safety Safety Devices in place: All fall risk precautions in place, call light within reach, left in bed, bed alarm in place, gait belt, patient at risk for falls, and nurse notified Restraints: No Education Education Given To: patient Education Provided: OT Role, Plan of Care, ADL Adaptive Strategies, Transfer Training, Equipment, Fall Prevention Educ (more content not included)... Normal [facility] Progress Note [facility] Geriatric Medicine Inpatient Consult Service Admission Date: 11/30/2024 Assessment Principal Problem: Dementia, unspecified dementia severity, unspecified dementia type, unspecified whether behavioral, psychotic, or mood disturbance or anxiety (HCC) Active Problems: Debility At risk for delirium Plan Debility -Contributing factors include: physical deconditioning, Dementia, arthritis -Lives with sister Julianne who assists with ADLs and IADLs -Concern for poor condition of home. Social work made APS referral. -Uses a walker and a wheelchair for longer distance -Dietary consult pending -Physical Therapy and Occupational Therapy recommend SNF -Sister is agreeable with plan for SNF with goal to return home if patient able to ambulate Dementia -Due to impaired insight and cognition, her NOK/POA should assist with discharge planning -Previously diagnosed per PCP records. -B12 WNL TSH WNL -Spoke with sister today - +short term memory loss. Patient needs reminders to bathe and dress. Sister assists will IADLs. -Sister agrees she needs assist with house cleaning -[facility] for [facility] cognitive evaluation when in usual state of health. Referral placed. Depression -Resume home Sertraline 50 mg daily At Risk for Delirium -No agitation. Mild somnolence. Worsening NORI, possible infection. Work up in progress per primary. Check post void residual. Nephrology consult pending. -Reported agitated in ER. -If antipsychotics are necessary for agitation, recommend seroquel 12.5 mg BID prn agitation (first line) and haldol 0.5 mg IM q6hr prn agitation (2nd line) -qtc 470 -Risk factors include: age, dementia, NORI, possible infection -Delirium Protocol -Melatonin nightly insomnia -Avoid sedating/anticholinerg ic medications -Encourage family visits -Encourage sleep hygiene -Minimize barriers to nutrition -Optimize sensory input and access to assistive devices where indicated -Encourage time up in chair - including at meals - as able -Unless contraindicated, encourage regular ambulation with assistance -D/c Phillips, restraints, IV lines, as able -Notified primary patient no longer on Amlodipine at home Vitamin D insufficiency --Vit D 25 --Start Vit D3 2,000 units daily Follow-up: will follow with you Subjective Chief Complaint: weakness Geriatrics consulted for Dementia, agitation HPI- The patient is known to me. 89 y.o. year-old female with past medical history of arthritis, dementia, malnutrition, chronic kidney disease, hypertension who presented to hospital with failure to thrive. She lives with her sister and was reported to have difficulty ambulating. House cluttered with smell of urine. CT head - chronic microvascular change. Trouble moving right leg. Xray of knee showed degenerative change, small knee joint effusion. Pelvic xray with degenerative changes. 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 Ultrasound-guided FNA suggested. Also, noted with NORI. CT abdomen pending Blood cultures pending ECHO pending Urine culture pending Procal 2.84 CMP: K 3.3, BUN 47 (25 on 12/01), creat 1.92 (1.26 on 12/01), albumin 2.3 CBC: WBC 8.8 (12.6 on 12/01), Hgb 11.4 She was seen by the geriatric service in June 2023. MMSE was a 24/30 at that time. Clock Draw was a 3/7. Her sister had noted short term memory loss. She had been having several falls due to weakness. Interval History: Remains on general medical/surgical floor . Patient sleeping, easily awakened. Not able to state whey she is here. Did not eat breakfast but states she might eat some. Denies pain. Nursing reports no overnight concerns. No behaviors. Spoke with Julianne Brvao sister. Patient doing well until Friday when she could not walk. Normally uses a walker. They were going to go out to eat and she sat down on a step and could not get up. She was incontinent and sister tried to help clean her but she was agitated. No falls. Last a few years ago. Problems with short term memory gradually worsening. She will ask sister to take care of her dog who has been gone for 2 years. Sister assists her getting into shower and needs some assist with dressing. Patient does most of her dressing. Not bathing regularly. May shower every 2 weeks. She will use wet wipes in between. Needs reminders to bathe and change clothes. Eating well. Sister does cooking, shopping, medications (pill box). Not driving. Able to use telephone. Sister says she could use help for house cleaning. Mood usually good except over past month arguing more with brother in law, over past week getting irritable with sister. Sleeps well. Reviewed medications. Not taking Amlodipine for a year. BP h (more content not included)... Normal [facility] Progress Note Speech-Language Pathology SPEECH LANGUAGE PATHOLOGY [facility] Bedside Swallow Evaluation Patient Name: Yelena Chandra Evaluation Date: 12/02/2024 Date of : 1935 Admission Date: 11/30/2024 10:21 PM Age: 89 y.o. Room/Bed: B2-260/B2-260 A IMPRESSION: S/s oropharyngeal dysphagia. + overt clinical s/s pulmonary compromise with PO. Risk factors for aspiration include dementia with behavioral changes, large mass of left parotid gland, poor dentition, and esophageal issues - small esophageal web. RECOMMENDATION: Recommend Soft and bite-sized solids and Thin liquids and meds as tolerated and the following precautions: - Upright positioning for all PO intake - Slow rate of intake - Small bites/sips - Alternate solid and liquids Dysphagia NOMS: Level 5: Swallowing is safe with minimal diet restrictions and/or occasionally requires minimal cues to use compensatory strategies. The individual may occasionally self-cue. All nutrition and hydration needs are met by mouth. Pt would benefit from skilled acute GAS COMPRESSOR TURBINE OPERATOR services to ensure patient tolerance of the recommended diet. Frequency: 3 days/wk for 2 weeks Barriers: Cognitive deficit Prognosis: good D/C Recommendations: to be determined Subjective Patient alert and cooperative. Seen upright in bed. Answers some basic questions with clear but soft vocal quality. Pt poor historian with poor memory. Follows all basic commands. No visitors at bedside. Spoke with MITA Altamirano who cleared pt to be evaluated. Dysphagia History: Retrospective chart review revealed a history of GAS COMPRESSOR TURBINE OPERATOR services as follows: 08/06/22-07/22/23. The following diet and strategies were recommended: Diet: Soft and Bite Sized Aspiration Precautions: - Upright positioning for all PO intake - Slow rate of intake - Small bites/sips - Alternate solid and liquids Prior MBS completed on 08/05/22 with results indicating Impression: Pt demonstrated mild decreased oral control with lingual pumping. +prespill to vallecula prior to swallow (WFL for age) however over epiglottis into top of laryngeal vestibule at onset of swallow resulting in transient penetration. No true vocal cord contact observed despite pt was coughing during study. Recommend Easy to chew vs. Continue Soft and bite sized with thin liquids. Single bites and drinks, slow rate of intake, smaller more frequent meal to accommodate esophageal emptying. Pt needs education and follow up with deficits, as she is poor historian and decreased memory. Baseline Diet: Adult diet regular Current Diet: Dietary Orders (From admission, onward) Start Ordered 12/01/24 0801 Adult diet Regular; Low Sodium (2 gm) Diet effective now Question Answer Comment Diet type Regular Sodium restriction: Low Sodium (2 gm) 12/01/24 0800 Tube Feeding: no Tracheostomy: no Recent Chest Xray/CT of Chest: CTA chest angiogram w and/or wo IV contrast 12/01/2024 Impression 1. No evidence of acute pulmonary embolism. 2. 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 Neoplastic process is not excluded in this context. 3. Partial visualization of left parotid gland heterogeneous mass, better characterized on dedicated neck CT. Again, neoplasm is not entirely excluded and further evaluation and management is warranted. 4. Other chronic findings as discussed. Report Dictated on Electronically Signed By: Matt Segura MD Electronically Signed Date/Time: 12/01/2024 1:11 AM EDT Oxygen: Oxygen Therapy: None (Room air) Past Medical History: Medical History[1] Past Surgical History: Surgical History[2] Admission Diagnosis: Patient Active Problem List Diagnosis Date Noted Dementia, unspecified dementia severity, unspecified dementia type, unspecified whether behavioral, psychotic, or mood disturbance or anxiety (HCC) 12/01/2024 Debility 12/01/2024 At risk for delirium 12/01/2024 Moderate malnutrition (CMS/HCC) (HCC) 07/14/2023 Decreased activities of daily living (ADL) 07/11/2023 Dyspnea 07/31/2022 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 who presents to the emergency department with chief complaint of brought in by EMS after the patient's sister called, the patient lives with her sister she has dementia, they state that the house is in rather terrible shape it is a bit of a hoarding situation with barely any paths to walk through throughout the house. The patient told her sister to call EMS and then when they got there she started swearing at them and yelling at them. She has been agitated here she is alert to self and place confused to time she has a history of dementia. Initial call was for just complaints of pain all over. Patient Complaint: Pt complains of mouth being very dry Pain: Pt denies any current pain. PPE Worn: gloves Objective Bedside swallow eval (more content not included)... Normal [facility] THYROID STIMULATING HORMONEo n 12-02-2024 THYROID STIMULATING HORMONE 0.98 uIU/mL Normal 0.35-4.94 [facility] Comment on above: Performed By: #### L [id number], [id number] ####Commercial Accountant: HILDA MACEDO ([id number])[facility] ([facility])[address] [place] [address] US Heart TransthoracicOrdere d By: Tushar Little on 12-02-2024 Aortic Sinus Valsalva 3.1 cm [facility] Work Phone: Aortic Sinus Valsalva Index 1.73 cm/m2 [facility] [employer] Work Phone: Aortic valve Mean systole pressure gradient by US.doppler derived full Bernoulli 4 mmHg [facility] Work Phone: Aortic valve Orifice area by US 3.1 cm2 [facility] Work Phone: Aortic valve Peak systolic flow by US.doppler 1 m/s [facility] Work Phone: Ascending Aorta 3.1 cm [facility] Work Phone: Ascending Aorta Index 1.73 cm/m2 [facility] Work Phone: AV Area by Peak Velocity 2.9 cm2 [facility] Work Phone: AV Area by VTI 2.9 cm2 [facility] Work Phone: AV Peak Gradient 8 mmHg [facility] Work Phone: AV Peak Velocity 1.5 m/s [facility] Work Phone: AV Velocity Ratio 0.8 [facility] Work Phone: AV VTI 29.3 cm [facility] Work Phone: DESMOND/BSA Peak Velocity 1.6 cm2/m2 [facility] Work Phone: DESMOND/BSA VTI 1.6 cm2/m2 [facility] Work Phone: E/E' Lateral 12.29 [facility] Work Phone: E/E' Ratio (Averaged) 20.48 [facility] Work Phone: E/E' Septal 28.67 [facility] Work Phone: Fractional Shortening 2D 23 % 28 - 44 % [facility] Work Phone: Interpretation and review of laboratory results Abnormal [facility] Work Phone: IVSd 0.9 cm 0.6 - 0.9 cm [facility] Work Phone: LA Diameter 2.5 cm [facility] Work Phone: LA Size Index 1.4 cm/m2 [facility] Work Phone: LA Volume 2C 56 mL Abnormal 22 - 52 mL [facility] Work Phone: [phone] LA Volume 4C 53 mL Abnormal 22 - 52 mL [facility] Work Phone: [phone] LA Volume A/L 62 mL [facility] Work Phone: [phone] LA Volume BP 58 mL Abnormal 22 - 52 mL [facility] Work Phone: [phone] LA Volume Index 2C 31 mL/m2 16 - 34 mL/m2 [facility] Work Phone: [phone] LA Volume Index 4C 30 mL/m2 16 - 34 mL/m2 [facility] Work Phone: [phone] LA Volume Index A/L 35 mL/m2 16 - 34 mL/m2 [facility] Work Phone: LA Volume Index BP 32 ml/m2 16 - 34 ml/m2 [facility] Work Phone: Left ventricular Ejection fraction by US.2D+Calculated by biplane method of disks 58 % 55 - 100 % [facility] Work Phone: LV E' Lateral Velocity 7 cm/s [facility] Work Phone: [phone] LV E' Septal Velocity 3 cm/s [facility] Work Phone: LV EDV A2C 49 mL [facility] Work Phone: [phone] LV EDV A4C 83 mL [facility] Work Phone: LV EDV BP 65 mL 56 - 104 mL [facility] Work Phone: LV EDV Index A2C 27 mL/m2 [facility] Work Phone: [phone] LV EDV Index A4C 46 mL/m2 [facility] Work Phone: LV EDV Index BP 36 mL/m2 [facility] Work Phone: LV Ejection Fraction A2C 56 % [facility] Work Phone: LV Ejection Fraction A4C 58 % [facility] Work Phone: LV ESV A2C 21 mL [facility] Work Phone: LV ESV A4C 35 mL [facility] Work Phone: LV ESV BP 27 mL 19 - 49 mL [facility] Work Phone: [phone] LV ESV Index A2C 12 mL/m2 [facility] Work Phone: LV ESV Index A4C 20 mL/m2 [facility] Work Phone: [phone] LV ESV Index BP 15 mL/m2 [facility] Work Phone: [phone] LV Mass 2D 81.9 g 67 - 162 g [facility] Work Phone: [phone] LV Mass 2D Index 45.8 g/m2 43 - 95 g/m2 [facility] Work Phone: [phone] LV RWT Ratio 0.46 [facility] Work Phone: [phone] LVIDd 3.5 cm Abnormal 3.9 - 5.3 cm [facility] Work Phone: [phone] LVIDd Index 1.96 cm/m2 [facility] Work Phone: [phone] LVIDs 2.7 cm [facility] Work Phone: [phone] LVIDs Index 1.51 cm/m2 [facility] Work Phone: [phone] LVOT Cardiac Output 5.7 liter/mi nut e [facility] Work Phone: [phone] LVOT Diameter 2 cm [facility] Work Phone: [phone] LVOT Mean Gradient 4 mmHg [facility] Work Phone: [phone] LVOT Peak Gradient 6 mmHg [facility] Work Phone: [phone] LVOT Peak Velocity 1.2 m/s [facility] Work Phone: [phone] LVOT Stroke Volume Index 50.3 mL/m2 [facility] Work Phone: [phone] LVOT SV 90.1 ml [facility] Work Phone: LVOT VTI 28.7 cm [facility] Work Phone: [phone] LVOT:AV VTI Index 0.98 [facility] Work Phone: [phone] LVPWd 0.8 cm 0.6 - 0.9 cm [facility] Work Phone: [phone] MV A Velocity 0.98 m/s [facility] Work Phone: [phone] MV E Velocity 0.86 m/s [facility] Work Phone: [phone] MV E Wave Deceleration Time 348.1 ms [facility] Work Phone: [phone] MV E/A 0.88 [facility] Work Phone: [phone] Pulm Vein A Duration 134.2 ms [facility] Work Phone: [phone] Pulm Vein A Velocity 0.2 m/s [facility] Work Phone: [phone] Pulm Vein Peak D Velocity 0.4 m/s [facility] [employer] Work Phone: Pulm Vein Peak S Velocity 0.5 m/s [facility] Work Phone: Pulm Vein S/D 1.3 [facility] Work Phone: [phone] RV Basal Dimension 3.4 cm [facility] Work Phone: [phone] RV Free Wall Peak S' 8 cm/s [facility] [employer] Work Phone: RV Longitudinal Dimension 6.5 cm [facility] Work Phone: [phone] RV Mid Dimension 2.5 cm [facility] Work Phone: [phone] Sinotubular Junction 2.6 cm [facility] Work Phone: TAPSE 1.6 cm Abnormal 1.7 cm [facility] Work Phone: [phone] TR Max Velocity 2.17 m/s [facility] Work Phone: [phone] TR Peak Gradient 19 mmHg [facility] Work Phone: [phone] [facility] Work Phone: [phone] Heart Transthoracicon Left Ventricle: Left ventricle size is normal. Normal wall thickness. Normal left ventricular systolic function. EF by 2D Simpsons Biplane is 58%. Normal wall motion. Diastolic dysfunction present with increased LAP with normal LVEF. Right Ventricle: Right ventricle size is normal. Normal systolic function. No significant valvular abnormalities. Left Ventricle Left ventricle size is normal. Normal wall thickness. Normal left ventricular systolic function. EF by 2D Simpsons Biplane is 58%. Normal wall motion. Diastolic dysfunction present with increased LAP with normal LVEF. Right Ventricle Right ventricle size is normal. Normal systolic function. Left Atrium Not well visualized. Left atrium size is normal (LA volume index 16-34 mL/m2).LA Vol Index is 32 ml/m2. Right Atrium Not well visualized. Right atrium size is normal. IVC/SVC IVC was not assessed due to poor image quality. Cannot estimate RA pressure due to the IVC not being visualized. Mitral Valve Valve structure is normal. Mild annular calcification (posterior). Trace regurgitation. No stenosis noted. Tricuspid Valve Valve structure is normal. Mild (1+) regurgitation. Unable to accuratley assess RVSP due to not being able to assess RA pressure. RVSP is at least 22 mmHg. Aortic Valve Trileaflet. Mildly calcified cusps. Mild annular calcification. Trace regurgitation. No stenosis. Pulmonic Valve The pulmonic valve visualization is suboptimal but appears to be functioning normally. Trace regurgitation. Ascending Aorta Normal sized sinuses of Valsalva and ascending aorta. Pericardium No pericardial effusion. Septum No interatrial shunt visualized on color Doppler. Pulmonary Artery Pulmonary artery was not well visualized. Study Details Image quality: suboptimal. Heart rate: 68 bpm. Blood pressure: 99/62 mmHg. The underlying ECG rhythm was sinus rhythm. Technical qualifiers: Technically difficult study with poor endocardial visualization and procedure performed with the patient in a supine position. Ultrasound enhancement agent was given to enhance imaging. Echo Additional Conclusions No significant valvular abnormalities. CV CPACS VITAMIN D DEFICIENCY SCREENI NG (VIT D 25)on 12-02-2024 VIT D 25-OH, TOTAL 25 ng/mL Normal See comment [employer] [facility] Comment on above: Result Comment: BRUCEE R COMMENTS: Target concentration: 30 - 40 ng/mL; toxicity seen at concentrations >100 ng/mL Less than 20 ng/mL: Indicative of Vit D deficiency Test performed by Torrential, measuring Total Vitamin D, not individual fractions. Performed By: #### L [id number] ####Commercial Accountant: HILDA MACEDO ([phone])[facility] ([facility])[address] [place] [address] [phone] 12-01-2024 [id number] S/W, Hoarding Patient in from home with Sister (?) reports of pain all over, patient agitated, reported to have Dementia. Documentation notes EMS report the house is in terrible shape, it is a hoarding situation, barely a path to walk through. No EMS Run Sheet available in Media to review. Chart reviewed. Call placed to patient Sister Julianne, no answer, LVM with call back number. PT did see and SNF is recommended. Normal [facility] COMPLETE URINALYSIS WITH REF MANJU TO CULTUREon 12-01-2024 BACTERIA (#/HPF) IN URINE Few Abnormal Negative [facility] Comment on above: Performed By: #### L [id number] ####Commercial Accountant: HILDA MACEDO ([phone])[facility] ([facility])[address] [place] [address]#### [id number] ####Commercial Accountant: NICKI MONAE ([phone])[facility] ([facility])[address] [place] [address] BILIRUBIN, TOTAL PRESENCE IN URINE Negative Normal Negative [facility] Comment on above: Performed By: #### L [id number] ####Commercial Accountant: HILDA MACEDO ([phone])[facility] ([facility])[address] [place] [address]#### [id number] ####Commercial Accountant: NICKI MONAE ([phone])[facility] [place] [address] Clarity (U) Clear Normal Clear [facility] Comment on above: Performed By: #### L [id number] ####Commercial Accountant: HILDA MACEDO ([phone])[facility] ([facility])[address] [place] [address]#### [id number] ####Commercial Accountant: NICKI MONAE ([phone])[facility] ([facility])[address] [place] [address] Color (U) Yellow Normal Lt. Yellow [facility] Comment on above: Performed By: #### L [id number] ####Commercial Accountant: HILDA MACEDO ([phone])[facility] ([facility])[address] [place] [address]#### [id number] ####Commercial Accountant: NICKI MONAE ([phone])[facility] ([facility] [place] [address] GLUCOSE (MG/DL) IN URINE Normal Normal Nor mal (<70) [facility] Comment on above: Performed By: #### L [id number] ####Commercial Accountant: HILDA MACEDO ([phone])[facility] ([facility])[address] [place] [address]#### [id number] ####Commercial Accountant: NICKI MONAE ([phone])[facility] [place] [address] HEMOGLOBIN PRESENCE IN URINE 0.03 mg/dL Abnormal Negative [facility] Comment on above: Performed By: #### L [id number] ####Commercial Accountant: HILDA MACEDO ([phone])[facility])[address] [place] [address]#### [id number] ####Commercial Accountant: NICKI MONAE ([phone])[facility] ([facility])[address] [place] [address] HYALINE CASTS (#/LPF) IN URINE SEDIMENT BY MICROSCOPY 3-5 Abnormal Negative [facility] Comment on above: Performed By: #### L [id number] ####Commercial Accountant: HILDA MACEDO ([phone])[facility] ([facility])[address] [place] [address]#### [id number] ####Commercial Accountant: NICKI MONAE ([phone])[facility] ([facility])[address] [place] [address] Ketones Ql (U) Negative Normal Negative [facility] Comment on above: Performed By: #### L [id number] ####Commercial Accountant: HILDA MACEDO ([phone])[facility] ([facility])[address] [place] [address]#### [id number] ####Commercial Accountant: NICKI MONAE ([phone])[facility] ([facility])[address] [place] [address] LEUKOCYTE ESTERASE PRESENCE IN URINE BY TEST STRIP 25 Dieter/uL Abnormal Negative [facility] Comment on above: Performed By: #### L [id number] ####Commercial Accountant: HILDA MACEDO ([phone])[facility] ([facility])[address] [place] [address]#### [id number] ####Commercial Accountant: NICKI MONAE ([phone])[facility] ([facility])[address] [place] [address] MUCUS (#/LPF) IN URINE SEDIMENT Few Normal Negative [facility] Comment on above: Performed By: #### L [id number] ####Commercial Accountant: HILDA MACEDO ([phone])[facility] ([facility])[address] [place] [address]#### [id number] ####Commercial Accountant: NICKI MONAE ([phone])[facility] ([facility])[address] [place] [address] NITRITE PRESENCE IN URINE Negative Normal Negative [facility] Comment on above: Performed By: #### L [id number] ####Commercial Accountant: HILDA MACEDO ([phone])[facility] ([facility])[address] [place] [address]#### [id number] ####Commercial Accountant: NICKI MONAE ([phone])[facility] ([facility])[address] [place] [address] pH (U) 5.5 [pH] Normal 5.0-8.0 [facility] Comment on above: Performed By: #### L [id number] ####Commercial Accountant: HILDA MACEDO ([phone])[facility] ([facility])[address]#### [id number] ####Commercial Accountant: NICKI MONAE ([phone])[facility] ([facility])[address] [place] [address] Protein (U) [Mass/Vol] 30 mg/dL Abnormal Negative [facility] Comment on above: Performed By: #### L [id number] ####Commercial Accountant: HILDA MACEDO ([phone])[facility] ([facility])[address] [place] [address]#### [id number] ####Commercial Accountant: NICKI MONAE ([phone])[facility] ([facility])[address] [place] [address] RBC (#/HPF) IN URINE SEDIMENT 6-10 Abnormal 0-2 [facility] Comment on above: Performed By: #### L [id number] ####Commercial Accountant: HILDA MACEDO ([phone])[facility] ([facility])[address] [place] [address]#### [id number] ####Commercial Accountant: NICKI MONAE ([phone])[facility] ([facility])[address] [place] [address] Specific gravity (U) [Rel density] >1.030 High 1.005-1.030 [facility] Comment on above: Result Comment: HARPREET Saldivar COMMENTS: This specimen has been reflexed to urine culture. Performed By: #### L [id number] ####Commercial Accountant: HILDA MACEDO ([phone])[facility] ([facility])[address] [place] [address]#### [id number] ####Commercial Accountant: NICKI MONAE ([phone])[facility] ([facility])[address] [place] [address] SQUAMOUS EPITHELIAL CELLS (#/HPF) IN URINE SEDIMENT Negative Normal 3-5 [facility] Comment on above: Performed By: #### L [id number] ####Commercial Accountant: HILDA MACEDO ([phone])[facility] ([facility])[address] [place] [address]#### [id number] ####Commercial Accountant: NICKI MONAE ([id number])[facility] ([facility])[address] [place] [address] UROBILINOGEN (MG/DL) IN URINE 2 mg/dL Abnormal Normal (0-1) [facility] Comment on above: Performed By: #### L [id number] ####Commercial Accountant: HILDA MACEDO ([phone])[facility] ([facility])[address] [place] [address]#### [id number] ####Commercial Accountant: NICKI MONAE ([phone])[facility] ([facility])[address] [place] [address] WBC (LEUKOCYTE) (#/HPF) IN URINE SEDIMENT 11-25 Abnormal 0-5 [facility] Comment on above: Performed By: #### L [id number] ####Commercial Accountant: HILDA MACEDO ([phone])[facility] ([facility])[address] [place] [address]#### [id number] ####Commercial Accountant: NICKI MONAE ([phone])[facility] ([facility])[address] [place] [address] CT CHEST ANGIOGRAM W AND/OR WO IV CONTRASTon 12-01-2024 CT CHEST ANGIOGRAM W AND/OR WO IV CONTRAST Patient Name: YELENA CHANDRA : 1935 Exam Date/Time: 12/01/2024 00:04 Procedure: CT CHEST ANGIOGRAM W AND/OR WO IV CONTRAST Ordering Provider: RAMOS DANIEL Reason For Exam: Pulmonary embolism (PE) suspected, unknown D-dimer CT CHEST PULMONARY EMBOLISM PROTOCOL CLINICAL HISTORY: Chest pain COMPARISON: 06/18/2021 CTA Technique: [address] images were obtained of the chest after the uneventful IV administration of 75 mL of Isovue-370. Image acquisition was timed for maximal opacification of the pulmonary arteries. Images were reformatted in coronal and sagittal projections. 3D reformats were generated concurrently by myself on a separate workstation to better visualize the gross vascular anatomy. Dose reduction was employed with automated exposure control. FINDINGS: Pulmonary arteries: There is technically adequate opacification of the pulmonary arteries. No pulmonary embolus is identified. The pulmonary arteries normal in caliber. Airway: Tracheobronchial tree remains patent. Lungs: Bibasilar dependent atelectasis is observed. Otherwise, no evidence of focal consolidation. No pulmonary masses or suspicious nodules identified. Pleura: No pleural thickening or effusion. Heart/Great vessels: Normal heart size with no pericardial effusion. There is mild-moderate coronary artery calcification. Atherosclerotic calcifications are noted in the thoracic aorta and branch vasculature. Mediastinum/Charline: No enlarged mediastinal, hilar, or axillary lymph nodes. Thyroid: Enlarged heterogeneous thyroid gland is observed with substernal extension of thyroid tissue, with the largest lesion measuring up to 3.5 cm (series 6 axial image 13). Esophagus: Esophagus is unremarkable. Visualized Upper Abdomen: The visualized upper abdomen is unremarkable. Chest wall: Unremarkable. Partial visualization of left parotid gland heterogeneous mass, better characterized on dedicated CT neck soft tissues. Bones: Diffuse osteopenia is observed. Severe degenerative changes of the bilateral glenohumeral joints is noted. Mild degenerative changes of the thoracic spine are observed. IMPRESSION: 1. No evidence of acute pulmonary embolism. 2. 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 Neoplastic process is not excluded in this context. 3. Partial visualization of left parotid gland heterogeneous mass, better characterized on dedicated neck CT. Again, neoplasm is not entirely excluded and further evaluation and management is warranted. 4. Other chronic findings as discussed. Report Dictated on Electronically Signed By: Matt Segura MD Electronically Signed Date/Time: 12/01/2024 1:11 AM EDT Pt presents via EMS for failure to thrive. Asked her sister to call because she was in pain and couldn't walk. Hx dementia. Smells of urine upon arrival. Comes from [facility] CT HEAD WO IV CONTRASTon CT HEAD WO IV CONTRAST Patient Name: YELENA CHANDRA : 1935 Exam Date/Time: 12/01/2024 00:03 Procedure: CT HEAD WO IV CONTRAST Ordering Provider: RAMOS DANIEL Reason For Exam: Mental status change, unknown cause EXAMINATION: CT of the head without intravenous contrast. INDICATION: Mental status change, unknown cause COMPARISON: 12/26/2022 TECHNIQUE: Thin axial imaging of the head was performed without intravenous contrast. Images were reformatted in coronal and sagittal projections using the raw CT data and were interpreted in conjunction with the axial images to render the findings listed below. Dose reduction was employed with automated exposure control. FINDINGS: Limitations: None Ventricles: Generalized enlargement of the ventricles and sulci is noted. No extracerebral collection with mass effect. Brain: No mass or acute hemorrhage. No evidence of acute infarct. Confluent areas of periventricular and subcortical white matter hypodensity are present, in keeping with chronic ischemic microangiopathy. Brainstem: Normal Paranasal sinuses: Clear. Mastoids: Clear. Skull and orbits: The skull and orbits are within normal limits. IMPRESSION: No acute intracranial abnormality. Chronic microvascular change. Report Dictated on Electronically Signed By: Matt Segura MD Electronically Signed Date/Time: 12/01/2024 1:03 AM EDT Pt presents via EMS for failure to thrive. Asked her sister to call because she was in pain and couldn't walk. Hx dementia. Smells of urine upon arrival. Comes from [facility] CT Head WO contraston 2024 No acute intracrania l abnormality. Chronic microvascular change. Report Dictated on Electronically Signed By: Matt Segura MD Electronically Signed Date/Time: 12/01/2024 1:03 AM EDT [facility] Patient Name: YELENA CHANDRA : 1935 Exam Date/Time: 12/01/2024 00:03 Procedure: CT HEAD WO IV CONTRAST Ordering Provider: RAMOS DANIEL Reason For Exam: Mental status change, unknown cause EXAMINATION: CT of the head without intravenous contrast. INDICATION: Mental status change, unknown cause COMPARISON: 12/26/2022 TECHNIQUE: Thin axial imaging of the head was performed without intravenous contrast. Images were reformatted in coronal and sagittal projections using the raw CT data and were interpreted in conjunction with the axial images to render the findings listed below. Dose reduction was employed with automated exposure control. FINDINGS: Limitations: None Ventricles: Generalized enlargement of the ventricles and sulci is noted. No extracerebral collection with mass effect. Brain: No mass or acute hemorrhage. No evidence of acute infarct. Confluent areas of periventricular and subcortical white matter hypodensity are present, in keeping with chronic ischemic microangiopathy. Brainstem: Normal Paranasal sinuses: Clear. Mastoids: Clear. Skull and orbits: The skull and orbits are within normal limits. [facility] Matt Segura MD - 12/01/2024 [facility] 1935 [id number] Exam Date/Time: 12/01/2024 00:03 Procedure: CT HEAD WO IV CONTRAST Ordering Provider: RAMOS DANIEL Reason For Exam: Mental status change, unknown cause EXAMINATION: CT of the head without intravenous contrast. INDICATION: Mental status change, unknown cause COMPARISON: 12/26/2022 TECHNIQUE: Thin axial imaging of the head was performed without intravenous contrast. Images were reformatted in coronal and sagittal projections using the raw CT data and were interpreted in conjunction with the axial images to render the findings listed below. Dose reduction was employed with automated exposure control. FINDINGS: Limitations: None Ventricles: Generalized enlargement of the ventricles and sulci is noted. No extracerebral collection with mass effect. Brain: No mass or acute hemorrhage. No evidence of acute infarct. Confluent areas of periventricular and subcortical white matter hypodensity are present, in keeping with chronic ischemic microangiopathy. Brainstem: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 more than 2 nodules with highest TI-RADS level Report Dictated on Electronically Signed By: Zhou Gunn MD Electronically Signed Date/Time: 12/01/2024 9:33 PM [facility] RADIOLOGY SYSTEM Patient Name: YELENA CHANDRA : 1935 [facility]#: [id number] Exam Date/Time: 12/01/2024 19:20 Procedure: US THYROID Ordering Provider: BARNES PRAMOD Reason For Exam: MASS ULTRASOUND OF THYROID GLAND CLINICAL INDICATION: MASS TECHNIQUE: Real-time ultrasound of the thyroid gland. COMPARISON: CT neck, earlier on same date. FINDINGS: Right lobe measures 4.1 x 3.7 x 5.2 cm. Left lobe measures 4.5 x 2.9 x 5.9 cm and extends caudal to thoracic inlet limiting evaluation. Thyroid isthmus 0.6 mm in AP dimension. Heterogeneous echogenicity. Nodule #1: Location: Right mid lobe Size: 4.3 x 3.5 x 3.8 Composition: Solid Echogenicity: Hypo Margin: Lobulated/irregular Echogenic foci: None TI-RADS points: 6 [facility] RADIOLOGY SYSTEM Zhou Gunn MD - 12/01/2024 Patient Name: YELENA CHANDRA : 1935 Exam Date/Time: 12/01/2024 19:20 Procedure: US THYROID Ordering Provider: BARNES PRAMOD Reason For Exam: MASS ULTRASOUND OF THYROID GLAND CLINICAL INDICATION: MASS TECHNIQUE: Real-time ultrasound of the thyroid gland. COMPARISON: CT neck, earlier on same date. FINDINGS: Right lobe measures 4.1 x 3.7 x 5.2 cm. Left lobe measures 4.5 x 2.9 x 5.9 cm and extends caudal to thoracic inlet limiting evaluation. Thyroid isthmus 0.6 mm in AP dimension. Heterogeneous echogenicity. Nodule #1: Location: Right mid lobe Size: 4.3 x 3.5 x 3.8 Composition: Solid Echogenicity: Hypo Margin: Lobulated/irregular Echogenic foci: None TI-RADS points: 6 IMPRESSION: 1. Large, lobular and heterogeneously hypoechoic mass in the right mid thyroid lobe, indeterminate. Ultrasound-guided FNA suggested to establish histology. 2. TI-RADS 4 = 4-6 points - (moderately suspicious) 5-20% FNA when >/= 1.5cm Follow when >1.0cm at 1, 2, 3 and 5 years TI-RADS score(s) and guidelines (please see below). *TI-RADS (2017) Reference: Shannen Davis. ACR Thyroid Imaging, Reporting and Data System (TI-RADS): White Paper of the ACR TI-RADS Committee. J Am [facility]. August 2016 Thyroid nodule details (add points for total score): Composition(points): 1 - mixed cystic and solid 2 - solid Echogenicity: 1 - hyperechoic or isoechoic 2 - hypoechoic 3 - very hypoechoic Shape: 3 - taller than wide Margin: 2 - lobulated or irregular 3 - extrathyroidal extension Echogenic foci: 1 - macrocalcifications 2 - rim calcification 3 - microcalcifications Risk for malignancy: TI-RADS 1 = 0 points - (benign) <2% risk TI-RADS 2 = 2 points - (not suspicious) <5% TI-RADS 3 = 3 points - (mildly suspicious) <5% FNA when >/= 2.5cm Follow when >1.5cm at 1, 3 and 5 years TI-RADS 4 = 4-6 points - (moderately suspicious) 5-20% FNA when >/= 1.5cm Follow when >1.0cm at 1, 2, 3 and 5 years TI-RADS 5 = 7+ points - (highly suspicious) >20% FNA when >/= 1.0cm Follow when >0.5cm every year for up to 5 years TI-RADS Notes: Nodule vascularity and color flow are no longer considered useful characteristics to assess risk for malignancy Highest risk factors: Microcalcifications, lobular borders, solid hypoechoic No biopsy below 1cm in maximum dimension Follow maximum of 4 nodules Significant growth is increase in two dimensions each by 20% Follow up scanning of less than 1yr is not warranted If TI-RADS level changes but FNA still not recommended, then follow in 1 year Biopsy of no more than 2 nodules with highest TI-RADS level Report Dictated on Electronically Signed By: Zhou Gunn MD Electronically Signed Date/Time: 12/01/2024 9:33 PM EDT [facility] Radiology Study observation (narrative) [facility] Urinalysis complete panel (U )Ordered By: Thea Hernandez on 12-01-2024 Bacteria LM.HPF (Urine sed) [#/Area] Few Abnormal Negative /HPF [facility] Bilirubin Ql (U) Negative Negative mg/dL [facility] Clarity (U) Clear Clear [facility] Color (U) Yellow Lt. Yellow [facility] Epithelial cells.squamous LM.HPF (Urine sed) [#/Area] [facility] Glucose Ql (U) Normal Normal (<70) mg/dL [facility] Hemoglobin Ql (U) 0.03 mg/dL Abnormal Negative [facility] Hyaline casts Auto (Urine sed) [#/Area] 3-5 Abnormal Negative /LPF [facility] Interpretation and review of laboratory results Abnormal [facility] Ketones (U) [Mass/Vol] Negative Negat linwood mg/dL [facility] Leukocyte esterase Test strip Ql (U) 25 Abnormal Negative Dieter/uL [facility] Mucus LM.HPF (Urine sed) [#/Area] Few Negative /LPF [facility] Nitrite Ql (U) Negative Negative [facility] th pH (U) 5.5 [pH] 5.0 - 8.0 pH [facility] Protein (U) [Mass/Vol] 30 mg/dL Abnormal Negative [facility] RBC LM.HPF (Urine sed) [#/Area] 6-10 Abnormal [facility] Specific gravity (U) [Rel density] High 1.005 - 1.030 [facility] Urobilinogen (U) [Mass/Vol] 2 mg/dL Abnormal Normal (0-1) [facility] WBC LM.HPF (Urine sed) [#/Area] 11-25 Abnormal [facility] This specimen has be en reflexed to urine culture. [facility] VITAMIN B12on 12-01-2024 Cobalamin (Vitamin B12) [Mass/Vol] 633 pg/mL Normal 213-816 [facility] Comment on above: Result Comment: TC Significant interference from hemolysis. Result integrity compromised. Interpret with caution. Performed By: #### L [id number] #### Commercial Accountant: NICKI MONAE ([id number]) [address] Vital signsOrdered By: Iris Baron on 12-01-2024 Heart rate 105 /min bpm [facility] Work Phone: XR Knee - right 1 or 2 Views on 12-01-2024 Degenerative change, accentuated in the medial compartment, and small knee joint effusion. Report Dictated on Electronically Signed By: Kaila Martinez MD Electronically Signed Date/Time: 12/01/2024 6:56 PM EDT [facility] RADIOLOGY SYSTEM Patient Name: YELENA CHANDRA : 1935 Exam Date/Time: 12/01/2024 17:39 Procedure: XR KNEE 1-2 VIEWS RIGHT Ordering Provider: BARNES PRAMOD Reason For Exam: PAIN EXAM: XR Right Knee, 1 or 2 Views CLINICAL INDICATION: PAIN TECHNIQUE: Frontal and/or lateral views of the right knee. COMPARISON: Right knee radiographs from 06/17/2021 FINDINGS: BONES/JOINTS: Advanced degenerative change of the medial compartment. Minimal patellofemoral compartment DJD. Small knee joint effusion. Diffuse osteopenia. Small chronic intra-articular ossification projects over the femoral intercondylar notch. Tiny superior patellar enthesophyte. No acute fracture. No dislocation. SOFT TISSUES: Unremarkable. [facility] Kaila Martinez M D - 12/01/2024 Patient Name: YELENA CHANDRA : 1935 [facility]#: [id number] Exam Date/Time: 12/01/2024 17:39 Procedure: XR KNEE 1-2 VIEWS RIGHT Ordering Provider: BARNES PRAMOD Reason For Exam: PAIN EXAM: XR Right Knee, 1 or 2 Views CLINICAL INDICATION: PAIN TECHNIQUE: Frontal and/or lateral views of the right knee. COMPARISON: Right knee radiographs from 06/17/2021 FINDINGS: BONES/JOINTS: Advanced degenerative change of the medial compartment. Minimal patellofemoral compartment DJD. Small knee joint effusion. Diffuse osteopenia. Small chronic intra-articular ossification projects over the femoral intercondylar notch. Tiny superior patellar enthesophyte. No acute fracture. No dislocation. SOFT TISSUES: Unremarkable. IMPRESSION: Degenerative change, accentuated in the medial compartment, and small knee joint effusion. Report Dictated on Electronically Signed By: Kaila Martinez MD Electronically Signed Date/Time: 12/01/2024 6:56 PM EDT [employer] XR Knee - right 1 or 2 Views Ordered By: Kaila Martinez on 12-01-2024 [employer] Work Phone: XR Pelvis 1 or 2 Viewson 1. No acute osseous abnormality. 2. Degenerative change. Report Dictated on Electronically Signed By: Zhou Gunn MD Electronically Signed Date/Time: 12/01/2024 8:06 PM EDT [facility] Name[facility] 1935 [id number] Exam Date/Time: 12/01/2024 17:39 Procedure: XR PELVIS 1-2 VIEWS Ordering Provider: BARNES PRAMOD Reason For Exam: PAIN PELVIS SINGLE VIEW CLINICAL INDICATION: PAIN TECHNIQUE: Single, AP view of the pelvis. COMPARISON: None. FINDINGS: Generalized osteopenia. No acute fracture or dislocation. Mild degenerative change in the hip joints. More advanced degenerative change in the visualized lower lumbar spine. Soft tissues grossly unremarkable. [facility] Zhou Gunn MD - 12/01/2024 Patient Name: YELENA CHANDRA : 1935 Exam Date/Time: 12/01/2024 17:39 Procedure: XR PELVIS 1-2 VIEWS Ordering Provider: BARNES PRAMOD Reason For Exam: PAIN PELVIS SINGLE VIEW CLINICAL INDICATION: PAIN TECHNIQUE: Single, AP view of the pelvis. COMPARISON: None. FINDINGS: Generalized osteopenia. No acute fracture or dislocation. Mild degenerative change in the hip joints. More advanced degenerative change in the visualized lower lumbar spine. Soft tissues grossly unremarkable. IMPRESSION: 1. No acute osseous abnormality. 2. Degenerative change. Report Dictated on Electronically Signed By: Zhou Gunn MD Electronically Signed Date/Time: 12/01/2024 8:06 PM EDT [facility] CBC (HEMOGRAM)on 11-30-2024 Erythrocyte distribution width (RBC) [Ratio] 13.9 % Normal 11.5-15.0 [facility] Comment on above: Performed By: #### L [id number] #### Commercial Accountant: HILDA MACEDO ([id number]) [facility] ([facility]) [address] [place] [address] Hematocrit (Bld) [Volume fraction] 44.1 % Normal 35.0-47.0 [facility] Comment on above: Performed By: #### L [id number] #### Commercial Accountant: HILDA MACEDO ([id number]) [facility] [address] Hemoglobin (Bld) [Mass/Vol] 14.5 g/dL Normal 11.7-16.0 [facility] Comment on above: Performed By: #### L [id number] #### Commercial Accountant: HILDA MACEDO ([id number]) [facility] [address] MCH (RBC) [Entitic mass] 27.1 pg Normal 26.0-34.0 [facility] Comment on above: Performed By: #### L [id number] #### Commercial Accountant: HILDA MACEDO ([id number]) [facility] ([facility]) [address] MCHC 32.9 % Normal 30.5-36.0 [facility] Comment on above: Performed By: #### L [id number] #### Commercial Accountant: HILDA MACEDO ([id number]) [facility] [address] MCV (RBC) [Entitic vol] 82.3 fL Normal 77.0-99.0 [facility] Comment on above: Performed By: #### L [id number] #### Commercial Accountant: HILDA MACEDO ([id number]) [facility] [address] Platelet mean volume (Bld) [Entitic vol] 10.4 fL Normal 9.0-12.7 [facility] Comment on above: Performed By: #### L [id number] #### Commercial Accountant: HILDA MACEDO ([id number]) [facility] ([facility]) [address] Platelets (Bld) [#/Vol] 318 10*3/uL Normal 140-440 [facility] Comment on above: Performed By: #### L [id number] #### Commercial Accountant: HILDA MACEDO ([id number]) [facility] ([facility]) [address] RBC (Bld) [#/Vol] 5.36 10*6/uL High 3.80-5.20 [facility] Comment on above: Performed By: #### L [id number] #### Commercial Accountant: HILDA MACEDO ([id number]) [facility] ([facility]) [address] WBC (Bld) [#/Vol] 12.6 10*3/uL High 3.6-10.7 [facility] Comment on above: Performed By: #### L [id number] #### Commercial Accountant: HILDA MACEDO ([id number]) [facility] ([facility]) [address] [place] [address] CBC panel Auto (Bld)on 11-30 Erythrocyte distribution width (RBC) [Ratio] 13.9 % 11.5 - 15.0 % [facility] Hematocrit (Bld) [Volume fraction] 44.1 % 35.0 - 47.0 % [facility] Hemoglobin (Bld) [Mass/Vol] 14.5 g/dL 11.7 - 16.0 g/dL [facility] Interpretation and review of laboratory results Abnormal [facility] MCH (RBC) [Entitic mass] 27.1 pg 26. 0 - 34.0 pg [facility] MCHC (RBC) [Mass/Vol] 32.9 % 30.5 - 36.0 % [facility] MCV (RBC) [Entitic vol] 82.3 fL 77.0 - 99.0 fL [facility] Platelet mean volume (Bld) [Entitic vol] 10.4 fL 9.0 - 12.7 fL [facility] Platelets (Bld) [#/Vol] 318 10*3/uL 140 - 440 10*3/uL [facility] RBC (Bld) [#/Vol] 5.36 10*6/uL High 3.80 - 5.2 0 10*6/uL [facility] WBC (Bld) [#/Vol] 12.6 10*3/uL High 3.6 - 10.7 10*3/uL [facility] CKon 11-30-2024 CK [Catalytic activity/Vol] 49 U/L Normal 30-185 [facility] Comment on above: Performed By: #### L [id number], [id number], LAB62, LAB17 ####Commercial Accountant: HILDA MACEDO ([id number])[facility])[address] CK [Catalytic activity/Vol]o n 11-30-2024 Interpretation and review of laboratory results Normal [facility] COMPREHENSIVE METABOLIC PANE Killian 11-30-2024 Albumin [Mass/Vol] 2.9 g/dL Low 3.4-4.8 [facility] Comment on above: Performed By: #### L [id number], [id number], LAB62, LAB17 ####Commercial Accountant: HILDA MACEDO ([id number])[facility] ([facility])[address] [place] [address] ALP [Catalytic activity/Vol] 103 U/L Normal 40-150 [facility] Comment on above: Performed By: #### L [id number], [id number], LAB62, LAB17 ####Commercial Accountant: HILDA MACEDO ([phone])[facility] ([facility])[address] [place] [address] ALT [Catalytic activity/Vol] 9 U/L Normal <30 [facility] Comment on above: Performed By: #### L [id number], [id number], LAB62, LAB17 ####Commercial Accountant: HILDA MACEDO ([id number])[facility] ([facility])[address] [place] [address] Anion gap [Moles/Vol] 15 mmol/L High 3-13 [facility] Comment on above: Performed By: #### L [id number], [id number], LAB62, LAB17 ####Commercial Accountant: HILDA MACEDO ([id number])[facility] ([facility])[address] [place] [address] [place] AST [Catalytic activity/Vol] 22 U/L Normal <34 [facility] Comment on above: Performed By: #### L [id number], [id number], LAB62, LAB17 ####Commercial Accountant: HILDA MACEDO ([id number])[facility] ([facility])[address] Bilirubin [Mass/Vol] 1.3 mg/dL High <1.2 [facility] Comment on above: Performed By: #### L [id number], [id number], LAB62, LAB17 ####Commercial Accountant: HILDA MACEDO ([id number])[facility] ([facility])[address] Calcium [Mass/Vol] 9.7 mg/dL Normal 8.8-10.0 [facility] Comment on above: Performed By: #### L [id number], [id number], LAB62, LAB17 ####Commercial Accountant: HILDA MACEDO ([id number])[facility] ([facility])[address] [place] [address] [place] Chloride [Moles/Vol] 101 mmol/L Normal 98-107 [facility] Comment on above: Performed By: #### L [id number], [id number], LAB62, LAB17 ####Commercial Accountant: HILDA MACEDO ([id number])[facility] ([facility])[address] [place] [address] [place] CO2 [Moles/Vol] 24 mmol/L Normal 23-31 [facility] Comment on above: Performed By: #### L [id number], [id number], LAB62, LAB17 ####Commercial Accountant: HILDA MACEDO ([id number])[facility] ([facility])[address] [place] [address] [place] Creatinine [Mass/Vol] 1.26 mg/dL High 0.57-1.11 [facility] Comment on above: Performed By: #### L [id number], [id number], LAB62, LAB17 ####Commercial Accountant: HILDA MACEDO ([id number])[facility])[address] GLOMERULAR FILTRATION RATE ML/MIN/1.73 SQ M.PREDICTED 41.4 mL/min/1.73m*2 Low >60.0 [facility] Comment on above: Result Comment: Calc ulation based on the Chronic Kidney Disease Epidemiology Collaboration (CKD-EPI) equation refit without adjustment for race Performed By: #### L [id number], [id number], LAB62, LAB17 ####Commercial Accountant: HILDA MACEDO ([id number])[facility] ([facility])[address] [place] [address] Glucose [Mass/Vol] 120 mg/dL High 82-115 [facility] Comment on above: Performed By: #### L [id number], [id number], LAB62, LAB17 ####Commercial Accountant: HILDA MACEDO ([id number])[facility])[address] [place] [address] Potassium [Moles/Vol] 3.5 mmol/L Normal 3.5-5.1 [facility] Comment on above: Result Comment: [facility] potassium values may be up to 0.5 mmol/L lower than serum values. Performed By: #### L [id number], [id number], LAB62, LAB17 ####Commercial Accountant: HILDA MACEDO ([id number])[facility] ([facility])[address] Protein [Mass/Vol] 7.6 g/dL Normal 6.4-8.3 [facility] Comment on above: Performed By: #### L [id number], [id number], LAB62, LAB17 ####Commercial Accountant: HILDA MACEDO ([id number])[facility] ([facility])[address] [place] [address] [place] Sodium [Moles/Vol] 140 mmol/L Normal 136-145 [facility] Comment on above: Performed By: #### L [id number], [id number], LAB62, LAB17 ####Commercial Accountant: HILDA MACEDO ([id number])[facility] ([facility])[address] Urea nitrogen [Mass/Vol] 25 mg/dL High 9-23 [facility] Comment on above: Performed By: #### L [id number], [id number], LAB62, LAB17 ####Commercial Accountant: HILDA BRYANTCASSANDRA ([id number])[facility] ([facility])[address] Comprehensive metabolic 1998 panelon 11-30-2024 Albumin [Mass/Vol] 2.9 g/dL Low 3.4 - 4.8 g/dL [facility] ALP [Catalytic activity/Vol] 103 U/L 40 - 150 U/L [facility] ALT [Catalytic activity/Vol] 9 U/L NINF - 30 U/L [facility] Anion gap [Moles/Vol] 15 mmol/L High 3 - 13 mmol/L [facility] AST [Catalytic activity/Vol] 22 U/L NINF - 34 U/L [facility] Bilirubin [Mass/Vol] 1.3 mg/dL High NINF - 1.2 mg/dL [facility] Calcium [Mass/Vol] 9.7 mg/dL 8.8 - 10. 0 mg/dL [facility] Chloride [Moles/Vol] 101 mmol/L 98 - 10 7 mmol/L [facility] CO2 [Moles/Vol] 24 mmol/L 23 - 31 mmol/L [facility] Creatinine [Mass/Vol] 1.26 mg/dL High 0.57 - 1.11 mg/dL [facility] GFR/1.73 sq M.predicted (S/P/Bld) [Vol rate/Area] 41.4 mL/min Low - PINF [facility] Comment on above: Calculation based on the Chronic Kidney Disease Epidemiology Collaboration (CKD-EPI) equation refit without adjustment for race Glucose [Mass/Vol] 120 mg/dL High 82 - 115 mg/dL [facility] Potassium [Moles/Vol] 3.5 mmol/L 3.5 - 5.1 mmol/L [facility] Comment on above: Plasma potassium thea ues may be up to 0.5 mmol/L lower than serum values. Protein [Mass/Vol] 7.6 g/dL 6.4 - 8.3 g/dL [facility] Sodium [Moles/Vol] 140 mmol/L 136 - 145 mmol/L [facility] Urea nitrogen [Mass/Vol] 25 mg/dL High 9 - 23 mg/dL [facility] ED Nursing Noteon 11-30-2024 ED Nursing Note Pt presents via EMS for failure to thrive. Asked her sister to call because she was in pain and couldn't walk. Hx dementia. Smells of urine upon arrival. Comes from [facility] ED Provider Noteon ED Provider Note EMERGENCY DEPARTMENT ENCOUNTER Pt Name: Yelena Chandra Birthdate 1935 Date of evaluation: 11/30/2024 ED Provider: Jake Ramos APRN - RATE ENGINEER This patient was seen in conjunction with Dr. Skelton CHIEF COMPLAINT Chief Complaint Patient presents with ? Failure To Thrive HISTORY OF PRESENT ILLNESS (Location/Symptom, Timing/Onset, Context/Setting, Quality, Duration, Modifying Factors, Severity) Note limiting factors. I wore appropriate PPE for the entirety of this encounter. HPI Yelena Chandra is a 89 y.o. who presents to the emergency department with chief complaint of brought in by EMS after the patient's sister called, the patient lives with her sister she has dementia, they state that the house is in rather terrible shape it is a bit of a hoarding situation with barely any paths to walk through throughout the house. The patient told her sister to call EMS and then when they got there she started swearing at them and yelling at them. She has been agitated here she is alert to self and place confused to time she has a history of dementia. Initial call was for just complaints of pain all over. Nursing Notes were reviewed. Limitations to history: None Outside historians: EMS REVIEW OF SYSTEMS Review of Systems Constitutional: Negative for activity change, appetite change, chills and fever. HENT: Negative for congestion, nosebleeds, sinus pain and trouble swallowing. Eyes: Negative for pain and visual disturbance. Respiratory: Negative for cough, chest tightness and shortness of breath. Cardiovascular: Negative for chest pain. Gastrointestinal: Negative for abdominal pain, diarrhea, nausea and vomiting. Genitourinary: Negative for dysuria, hematuria, pelvic pain, vaginal bleeding, vaginal discharge and vaginal pain. Musculoskeletal: Positive for arthralgias and myalgias. Negative for back pain, joint swelling and neck stiffness. Skin: Negative for rash and wound. Neurological: Negative for syncope, weakness, light-headedness and headaches. Hematological: Negative for adenopathy. Psychiatric/Behavioral : Positive for agitation. Negative for confusion. All other systems reviewed and are negative. Pertinent positives and negatives as per HPI. PAST MEDICAL HISTORY Medical History[1] SURGICAL HISTORY Surgical History[2] CURRENT MEDICATIONS Previous Medications AMLODIPINE (NORVASC) 5 MG TABLET Take 1 tablet (5 mg) by mouth daily. ASPIRIN 81 MG EC TABLET Take 81 mg by mouth daily. MELATONIN 3 MG TABLET Take 1 tablet (3 mg) by mouth Nightly as needed for sleep. METOPROLOL TARTRATE (LOPRESSOR) 100 MG TABLET Take 1 tablet by mouth 2 times daily. Pt thought this was stopped and started on another BP med - does not know the name PANTOPRAZOLE (PROTONIX) 40 MG EC TABLET Take 1 tablet (40 mg) by mouth every morning (before breakfast). Do not crush, chew, or split. Do not start before August 07, 2022. SERTRALINE (ZOLOFT) 25 MG TABLET Take 1 tablet (25 mg) by mouth daily for 2 doses. SERTRALINE (ZOLOFT) 50 MG TABLET Take 1 tablet (50 mg) by mouth daily. Do not start before July 25, 2023. THERAPEUTIC MULTIVITAMIN-MINERALS (THERAGRAN-M) TABLET Take 1 tablet by mouth daily. ALLERGIES Patient has no known allergies. FAMILY HISTORY Family History[3] SOCIAL HISTORY Social History[4] SCREENINGS [place] [address] [place] Coma Scale Best Eye Response: Spontaneous Best Verbal Response: Confused Best Motor Response: Follows commands [place] Coma Scale Score: 14 PHYSICAL EXAM ED Triage Vitals Temp Heart Rate Resp BP 11/30/24222611/30/24222611/30/24222611/30/242226 36.4 ?C (97.6 ?F) 106 18 106/70 SpO2 Temp Source Heart Rate Source Patient Position 11/30/24222611/30/24222611/30/24 2330 11/30/24 2330 97 % Oral Monitor Lying BP Location FiO2 (%) 11/30/24 2330 -- Left arm Physical Exam Vitals and nursing note reviewed. Constitutional: General: She is not in acute distress. Appearance: Normal appearance. She is not ill-appearing or toxic-appearing. HENT: Head: Normocephalic and atraumatic. Right Ear: External ear normal. Left Ear: External ear normal. Mouth/Throat: Mouth: Mucous membranes are moist. Pharynx: Oropharynx is clear. Eyes: Extraocular Movements: Extraocular movements intact. Conjunctiva/sclera: Conjunctivae normal. Pupils: Pupils are equal, round, and reactive to light. Neck: Comments: Large mass left lateral neck under the jawline. Cardiovascular: Rate and Rhythm: Normal rate and regular rhythm. Pulses: Normal pulses. Heart sounds: Normal heart sounds. No murmur heard. Pulmonary: Effort: Pulmonary effort is normal. No respiratory distress. Breath sounds: Normal breath sounds. No stridor. No wheezing or rhonchi. Abdominal: Comments: The abdomen is soft, nondistended and nontender. There is no rebound tenderness or guarding. Bowel sounds are normal. Musculoskeletal: Cervical back: Normal rang (more content not included)... Normal [facility] ED Provider Note Emergency Department Encounter [facility] ED Patient: Yelena Chandra : 1935 Date of Evaluation: 11/30/2024 ED Supervising Physician: Ghazal Skelton DO I personally evaluated Yelena Chandra and made/approved the management plan and take responsibility for the patient management. This will serve as my Supervisory note and shared attestation. I did perform a substantive portion of the visit including all aspects of the Medical Decision Making. I wore appropriate PPE for the entirety of this encounter. In brief, Yelena Chandra is a 89 y.o. that presents to the emergency department from home via EMS for failure to thrive. Patient has a history of dementia hoarding noted at the house by EMS. Patient has been more agitated and confused alert to self and place and complaining of pain all over initially. Focused exam: Vital signs able febrile no acute distress nontoxic atraumatic normocephalic head eyes PERRL neck mass RRR bilateral pulses clear lungs without respiratory stress no focal deficits alert to person and place Brief ED course/MDM: 89-year-old female presented to the ED for above. Exam as above. Differential diagnosis includes dementia, failure to thrive, UTI, cancer. I discussed results with patient and family at bedside including concern for thyroid cancer family at bedside demonstrates understanding patient demented. Patient admitted for further evaluation and treatment. Patient and family in agreement with plan. Diagnostics interpreted by me: I personally discussed the patient's management with other clinicians: All diagnostic, treatment, and disposition decisions were made by myself in conjunction with the ALVINA. For all further details of the patient's emergency department visit, please see their documentation. (Comment: Please note this report has been produced using speech recognition software and may contain errors related to that system including errors in grammar, punctuation, and spelling, as well as words and phrases that may be inappropriate. If there are any questions or concerns please feel free to contact the dictating provider for clarification.) Ghazal Skelton, DO [employer] Ghazal Skelton, DO 12/06/24 0758 Normal [facility] HIGH SENSITIVITY TROPONIN, S ERIAL BASELINEon 11-30-2024 TROPONIN HS SERIAL BASELINE 218 ng/L Critically high <=14 [facility] Comment on above: Result Comment: In i ndividuals presenting with symptoms > 2h, a baseline troponin <= 5 ng/L suggests acute cardiac injury is unlikely and further serial testing is generally not indicated. Performed By: #### L [id number], [id number], LAB62, LAB17 ####Commercial Accountant: HILDA MACEDO ([id number])[facility] ([facility])[address] [place] [address] Laboratory - Chemistry and C hemistry - challengeon 11-30-2024 CK [Catalytic activity/Vol] 49 U/L 30 - 185 U/L [facility] Magnesium [Mass/Vol] 1.5 mg/dL Low 1.6 - 2 .6 mg/dL [facility] MAGNESIUMon 11-30-2024 Magnesium [Mass/Vol] 1.5 mg/dL Low 1.6-2.6 [facility] Comment on above: Result Comment: ORDE R COMMENTS: Higher values can be expected in females during menses. Performed By: #### L [id number], [id number], LAB62, LAB17 ####Commercial Accountant: HILDA MACEDO ([id number])[facility] ([facility])[address] [place] [address] Magnesium [Mass/Vol]on 11-30 Higher values can be expected in females during menses. [employer] No Panel InformationOrdered By: Jatinder Belle on 11-30-2024 Interpretation and review of laboratory results Abnormal [facility] Troponin HS Serial Baseline 218 ng/L Critically high NINF - 14 ng/L [facility] Comment on above: In individuals prese nting with symptoms > 2h, a baseline troponin <= 5 ng/L suggests acute cardiac injury is unlikely and further serial testing is generally not indicated. [employer] No Panel Informationon 11-30 Interpretation and review of laboratory results Abnormal [facility] [employer] XR Chest Single viewon 11-30 1. No acute consolidation. 2. Lobular, mass-like opacity projecting over the thoracic inlet suggesting thyromegaly, mildly increased in the interval. Follow-up as indicated. Report Dictated on Electronically Signed By: Zhou Gunn MD Electronically Signed Date/Time: 11/30/2024 11:16 PM EDT [employer] [facility] Patient Name: YELENA CHANDRA : 1935 Exam Date/Time: 11/30/2024 22:55 Procedure: XR CHEST 1 VIEW Ordering Provider: RAMOS DANIEL Reason For Exam: COUGH CHEST PORTABLE CLINICAL INDICATION: COUGH TECHNIQUE: Portable chest x-ray(s). COMPARISON: June,. FINDINGS: Lobular, mass-like opacity again projects over the midline thoracic inlet, mildly increased. Cardiac silhouette within normal limits. Lungs show mild elevation or eventration of the right hemidiaphragm. No significant vascular congestion. No focal consolidation or apparent pneumothorax. Degenerative change again noted in the thoracic spine and bilateral shoulders. [facility] Zhou Gunn MD - 11/30/2024 [facility] Name: YELE[facility]ANDRA [facility] 1935 [id number] Exam Date/Time: 11/30/2024 22:55 Procedure: XR CHEST 1 VIEW Ordering Provider: RAMOS DANIEL Reason For Exam: COUGH CHEST PORTABLE CLINICAL INDICATION: COUGH TECHNIQUE: Portable chest x-ray(s). COMPARISON: June,. FINDINGS: Lobular, mass-like opacity again projects over the midline thoracic inlet, mildly increased. Cardiac silhouette within normal limits. Lungs show mild elevation or eventration of the right hemidiaphragm. No significant vascular congestion. No focal consolidation or apparent pneumothorax. Degenerative change again noted in the thoracic spine and bilateral shoulders. IMPRESSION: 1. No acute consolidation. 2. Lobular, mass-like opacity projecting over the thoracic inlet suggesting thyromegaly, mildly increased in the interval. Follow-up as indicated. Report Dictated on Electronically Signed By: Zhou Gunn MD Electronically Signed Date/Time: 11/30/2024 11:16 PM EDT [facility] Radiology Study observation (narrative) [facility] XR Chest Single viewOrdered By: Zhou Gunn on 11-30-2024 [facility] Work Phone: CBC without Diffon 5 Erythrocyte distribution width (RBC) [Ratio] 14.1 % Normal 11.1-15.3 [facility] Comment on above: Performed By: #### C BC #### [facility] [address] [place] [address] 30246 Hematocrit (Bld) [Volume fraction] 39.4 % Normal 34.6-45.0 [facility] Comment on above: Performed By: #### C BC #### [facility] [address] [place] [address] 02464 Hemoglobin (Bld) [Mass/Vol] 12.9 g/dL Normal 11.5-15.5 [facility] Comment on above: Performed By: #### C BC #### [facility] [address] [place] [address] 22124 MCH (RBC) [Entitic mass] 27.5 pg Normal 27.2-33.6 [facility] Comment on above: Performed By: #### C BC #### [facility] [address] [place], [place] [phone] MCHC (RBC) [Mass/Vol] 32.7 g/dL Low 32.9-35.3 [facility] Comment on above: Performed By: #### C BC #### [facility] [address] [place], [place] [phone] MCV (RBC) [Entitic vol] 84.1 fL Normal 81.3-96.7 [facility] Comment on above: Performed By: #### C BC #### [place] [id number] Platelet mean volume (Bld) [Entitic vol] 9.7 fL Normal 6.4-10.0 [facility] Comment on above: Performed By: #### C BC #### [facility] [address] [place], [place] [id number] PLT 297 x(10)3/cumm Normal 138-367 [facility] Comment on above: Performed By: #### C BC #### [place] [id number] RBC 4.68 X(10)6/cumm Normal 3.90-5.10 [facility] Comment on above: Performed By: #### C BC #### [facility] [address] [place], [place] [phone] WBC 6.5 x(10)3/cumm Normal 3.6-10.3 [facility] Comment on above: Performed By: #### C BC #### [place] [phone] [facility] 09-01-20242020 CKD-EPI Estimated Glomerular Filtration Rate (eGFR) is calculated using the 2020 CKD-EPI creatinine equation. This equation uses serum creatinine, sex and age for calculating the eGFR. Normal [facility] Comment on above: Performed By: #### C MP, LIPID #### [address] [place], [place] [address] Albumin [Mass/Vol] 4.1 g/dL Normal 3.5-5.2 [facility] Comment on above: Performed By: #### C MP, LIPID #### [facility] [address] [place], [place] [phone] ALP [Catalytic activity/Vol] 117 U/L Normal 35-129 [facility] Comment on above: Performed By: #### C MP, LIPID #### [facility] [address] [place], [place] [phone] ALT [Catalytic activity/Vol] 7 U/L Normal <=41 [facility] Comment on above: Performed By: #### C MP, LIPID #### [facility] [address] [place], [place] [phone] Anion gap [Moles/Vol] 12 mmol/L Normal 8-15 [facility] Comment on above: Performed By: #### C MP, LIPID #### [facility] [address] [place], [place] [phone] AST [Catalytic activity/Vol] 17 U/L Normal <=40 [facility] Comment on above: Performed By: #### C MP, LIPID #### [facility] [address] [place], [place] [phone] Bili, Total 0.2 mg/dL Normal <=1.2 [facility] Comment on above: Performed By: #### C MP, LIPID #### [facility] [address] [place], [place] [phone] Calcium [Mass/Vol] 9.3 mg/dL Normal 8.6-10.6 [facility] Comment on above: Performed By: #### C MP, LIPID #### [facility] [address] [place], [place] [phone] Chloride [Moles/Vol] 102 mmol/L Normal 98-107 [facility] Comment on above: Performed By: #### C MP, LIPID #### [facility] [address] [place], [place] [phone] CO2 [Moles/Vol] 25 mmol/L Normal 22-29 [facility] Comment on above: Performed By: #### C MP, LIPID #### [facility] [address] [place] [address] 31888 Creatinine [Mass/Vol] 1.5 mg/dL High 0.5-1.2 [facility] Comment on above: Performed By: #### C MP, LIPID #### [facility] [address] [place] [address] 53281 eGFR 33 mL/min/1.73sqm Low >=60 [facility] Comment on above: Performed By: #### C MP, LIPID #### [facility] [address] [place] [address] 19176 Glucose [Mass/Vol] 102 mg/dL Normal 74-109 [facility] Comment on above: Performed By: #### C MP, LIPID #### [facility] [address] [place] [address] 17387 Potassium [Moles/Vol] 4.5 mmol/L Normal 3.4-5.1 [facility] Comment on above: Performed By: #### C MP, LIPID #### [facility] [address] [place] [address] 65465 Prot Total 7.1 g/dL Normal 6.4-8.3 [facility] Comment on above: Performed By: #### C MP, LIPID #### [facility] [address] [place] [address] 16799 Sodium [Moles/Vol] 139 mmol/L Normal 136-145 [facility] Comment on above: Performed By: #### C MP, LIPID #### [facility] [address] [place] [address] 81175 Urea nitrogen [Mass/Vol] 25 mg/dL High 6-23 [facility] Comment on above: Performed By: #### C MP, LIPID #### [facility] [address] [place], [place] [phone] Lipid Profileon 09-01-2024 Cholesterol [Mass/Vol] 205 mg/dL High <=200 [facility] Comment on above: Performed By: #### C MP, LIPID #### [facility] [address] [place] [address] 88143 Cholesterol in HDL [Mass/Vol] 61 mg/dL Normal >=40 [facility] Comment on above: Performed By: #### C MP, LIPID #### [facility] [address] [place] [address] 14030 Cholesterol in LDL [Mass/Vol] 100 mg/dL High <=99 [facility] Comment on above: Performed By: #### C MP, LIPID #### [facility] [address] [place] [address] 09353 Triglyceride [Mass/Vol] 218 mg/dL High <=149 [facility] Comment on above: Performed By: #### C MP, LIPID #### [facility] [address] [place] [address] 52440 VLDL Calc 44 mg/dL Normal 14-48 [facility] Comment on above: Performed By: #### C MP, LIPID #### [facility] [address] [place] [address] 75568 CBC without Diffon 4 Erythrocyte distribution width (RBC) [Ratio] 14.9 % Normal 11.1-15.3 [facility] Comment on above: Performed By: #### C BC #### [facility] [address] [place] [address] 89222 Hematocrit (Bld) [Volume fraction] 38.5 % Normal 34.6-45.0 [facility] Comment on above: Performed By: #### C BC #### [facility] [address] [place] [address] 83195 Hemoglobin (Bld) [Mass/Vol] 12.6 g/dL Normal 11.5-15.5 [facility] Comment on above: Performed By: #### C BC #### [facility] [address] [place] [address] 45330 MCH (RBC) [Entitic mass] 26.6 pg Low 27.2-33.6 [facility] Comment on above: Performed By: #### C BC #### [facility] [address] [place] [address] 51717 MCHC (RBC) [Mass/Vol] 32.6 g/dL Low 32.9-35.3 [facility] Comment on above: Performed By: #### C BC #### [facility] [address] [place] [address] 55672 MCV (RBC) [Entitic vol] 81.6 fL Normal 81.3-96.7 [facility] Comment on above: Performed By: #### C BC #### [facility] [address] [place], [place] [phone] Platelet mean volume (Bld) [Entitic vol] 8.3 fL Normal 6.4-10.0 [facility] Comment on above: Performed By: #### C BC #### [facility] [address] [place] [address] 19694 PLT 259 x(10)3/cumm Normal 138-367 [facility] Comment on above: Performed By: #### C BC #### [facility] [address] [place], [place] [phone] RBC 4.72 X(10)6/cumm Normal 3.90-5.10 [facility] Comment on above: Performed By: #### C BC #### [facility] [address] [place] [address] 44367 WBC 3.6 x(10)3/cumm Normal 3.6-10.3 [facility] Comment on above: Performed By: #### C BC #### [facility] [address] [place] [address] 31440 [facility] 02-11-20242020 CKD-EPI Estimated Glomerular Filtration Rate (eGFR) is calculated using the 2020 CKD-EPI creatinine equation. This equation uses serum creatinine, sex and age for calculating the eGFR. Normal [facility] Comment on above: Performed By: #### C MP #### [address] [address] Albumin [Mass/Vol] 4.0 g/dL Normal 3.5-5.2 [facility] Comment on above: Performed By: #### C MP #### [place] [phone] ALP [Catalytic activity/Vol] 117 U/L Normal 35-129 [facility] Comment on above: Performed By: #### C MP #### [facility] [address] [place] [address] 83602 ALT [Catalytic activity/Vol] 6 U/L Normal <=41 [facility] Comment on above: Performed By: #### C MP #### [facility] [address] [place] [address] 16664 Anion gap [Moles/Vol] 11 mmol/L Normal 8-15 [facility] Comment on above: Performed By: #### C MP #### [facility] [address] [place], [place] [phone] AST [Catalytic activity/Vol] 18 U/L Normal <=40 [facility] Comment on above: Performed By: #### C MP #### [facility] [address] [place] [address] 59428 Bili, Total 0.4 mg/dL Normal <=1.2 [facility] Comment on above: Performed By: #### C MP #### [facility] [address] [place] [address] 79225 Calcium [Mass/Vol] 9.1 mg/dL Normal 8.6-10.6 [facility] Comment on above: Performed By: #### C MP #### [facility] [address] [place] [address] 96167 Chloride [Moles/Vol] 101 mmol/L Normal 98-107 [facility] Comment on above: Performed By: #### C MP #### [facility] [address] [place] [address] 50362 CO2 [Moles/Vol] 26 mmol/L Normal 22-29 [facility] Comment on above: Performed By: #### C MP #### [facility] [address] [place] [address] 04331 Creatinine [Mass/Vol] 1.4 mg/dL High 0.5-1.2 [facility] Comment on above: Performed By: #### C MP #### [facility] [address] [place] [address] 78917 eGFR 35 mL/min/1.73sqm Low >=60 [facility] Comment on above: Performed By: #### C MP #### [facility] [address] [place] [address] 38973 Glucose [Mass/Vol] 102 mg/dL Normal 74-109 [facility] Comment on above: Performed By: #### C MP #### [facility] [address] [place] [address] 39226 Potassium [Moles/Vol] 4.2 mmol/L Normal 3.4-5.1 [facility] Comment on above: Performed By: #### C MP #### [facility] [address] [place] [address] 84051 Prot Total 7.1 g/dL Normal 6.4-8.3 [facility] Comment on above: Performed By: #### C MP #### [facility] [address] [place], [place] [phone] Sodium [Moles/Vol] 138 mmol/L Normal 136-145 [facility] Comment on above: Performed By: #### C MP #### [facility] [address] [place] [address] 83804 Urea nitrogen [Mass/Vol] 22 mg/dL Normal 6-23 [facility] Comment on above: Performed By: #### C MP #### [facility] [address] [place] [address] 52360 Basophil percentageOrdered B y: Christiano Delcid on 07-30-2023 Bilirubin [Mass/Vol] 0.40 mg/dL 0.20-1.00 [facility] Comment on above: For patients on eltr ombopag therapy, use of Dimension [place] TBIL is not recommended. Chloride [Moles/Vol] 106 mmol/L 98-107 [facility] Glucose [Mass/Vol] 97 mg/dL 74-106 [facility] Hemoglobin (Bld) [Mass/Vol] 8.0 g/dL 12.0-15.0 [facility] Potassium [Moles/Vol] 3.7 mmol/L 3.5-5.1 [facility] Protein [Mass/Vol] 6.3 g/dL 6.4-8.2 [facility] Sodium [Moles/Vol] 139 mmol/L 136-145 [facility] WBC (Bld) [#/Vol] 6.8 10*3/uL 4.4-11.0 [facility] CBC-Complete Blood Cnt No Di ffon 07-30-2023 Erythrocyte distribution width (RBC) [Ratio] 14.0 % Normal 11.6-14.6 [facility] Comment on above: Order Comment: 203.1 Performed By: #### L 100.0500, L500.4050 #### [facility] [address] [place], [address] Hematocrit (Bld) [Volume fraction] 26.0 % Low 37-47 [facility] Comment on above: Order Comment: 203.1 Performed By: #### L 100.0500, L500.4050 #### [facility] [address] [place], [address] Hemoglobin (Bld) [Mass/Vol] 8.0 g/dL Low 12.0-15.0 [facility] Comment on above: Order Comment: 203.1 Performed By: #### L 100.0500, L500.4050 #### [facility] [address] [place], [address] MCH (RBC) [Entitic mass] 25.8 pg Low 27.0-32.0 [facility] Comment on above: Order Comment: 203.1 Performed By: #### L 100.0500, L500.4050 #### [facility] [address] [place], [address] MCHC (RBC) [Mass/Vol] 30.8 g/dL Low 32-36 [facility] Comment on above: Order Comment: 203.1 Performed By: #### L 100.0500, L500.4050 #### [facility] [address] [place], [address] MCV (RBC) [Entitic vol] 83.9 fL Normal 81-99 [facility] Comment on above: Order Comment: 203.1 Performed By: #### L 100.0500, L500.4050 #### [facility] [address] [place], [address] Platelet mean volume (Bld) [Entitic vol] 11.2 fL Normal 6.2-12.0 [facility] Comment on above: Order Comment: 203.1 Performed By: #### L 100.0500, L500.4050 #### [facility] [address] [place], [address] Platelets (Bld) [#/Vol] 399 10*3/uL Normal 150-450 [facility] Comment on above: Order Comment: 203.1 Performed By: #### L 100.0500, L500.4050 #### [facility] [address] [place], [address] RBC (Bld) [#/Vol] 3.10 10*6/uL Low 4.2-5.4 [facility] Comment on above: Order Comment: 203.1 Performed By: #### L 100.0500, L500.4050 #### [facility] [address] [place], [address] RDW SD 43.1 fl Normal 35.1-43.9 [facility] Comment on above: Order Comment: 203.1 Performed By: #### L 100.0500, L500.4050 #### [facility] [address] [place], [address] WBC (Bld) [#/Vol] 6.8 10*3/uL Normal 4.4-11.0 [facility] Comment on above: Order Comment: 203.1 Performed By: #### L 100.0500, L500.4050 #### [facility] [address] [place], [address] Comprehensive Metabolic Prof ilon 07-30-2023 Albumin [Mass/Vol] 2.0 g/dL Low 3.2-5.0 [facility] Comment on above: Order Comment: 203.1 Performed By: #### L 100.0500, L500.4050 #### [facility] [address] [place], [address] Albumin/Globulin [Mass ratio] 0.5 {ratio} Low 0.9-2.4 [facility] Comment on above: Order Comment: 203.1 Performed By: #### L 100.0500, L500.4050 #### [facility] [address] [place], [address] ALK P 75 U/L Normal 45-117 [facility] Comment on above: Order Comment: 203.1 Performed By: #### L 100.0500, L500.4050 #### [facility] [address] [place], [address] ALT [Catalytic activity/Vol] 14 U/L Normal 13-56 [facility] Comment on above: Order Comment: 203.1 Performed By: #### L 100.0500, L500.4050 #### [facility] [address] [place], [address] AST [Catalytic activity/Vol] 17 U/L Normal 15-37 [facility] Comment on above: Order Comment: 203.1 Performed By: #### L 100.0500, L500.4050 #### [facility] [address] [place], [address] Bilirubin [Mass/Vol] 0.40 mg/dL Normal 0.20-1.00 [facility] Comment on above: Order Comment: 203.1 Result Comment: For patients on eltrombopag therapy, use of Dimension [place] TBIL is not recommended. Performed By: #### L 100.0500, L500.4050 #### [facility] [address] [place], [address] BUN/CRE 13.9 RATIO Normal 10-20 [facility] Comment on above: Order Comment: 203.1 Performed By: #### L 100.0500, L500.4050 #### [facility] [address] [place], [address] CA,Total 8.6 mg/dL Normal 8.5-10.1 [facility] Comment on above: Order Comment: 203.1 Performed By: #### L 100.0500, L500.4050 #### [facility] [address] [place], [address] Chloride [Moles/Vol] 106 mmol/L Normal 98-107 [facility] Comment on above: Order Comment: 203.1 Performed By: #### L 100.0500, L500.4050 #### [facility] [address] [place], [address] CO2 [Moles/Vol] 29.0 mmol/L Normal 21.0-32.0 [facility] Comment on above: Order Comment: 203.1 Performed By: #### L 100.0500, L500.4050 #### [facility] [address] [place], [address] Creatinine [Mass/Vol] 1.15 mg/dL High 0.55-1.02 [facility] Comment on above: Order Comment: 203.1 Result Comment: The validity of the calculated GFR GFRAA in patients over 70 years has not been determined. Clinical correlation is essential. Performed By: #### L 100.0500, L500.4050 #### [facility] [address] [place], [address] EST GFR - AA 58 mL/min Low >60 [facility] Comment on above: Order Comment: 203.1 Result Comment: Afri can Faroese GFR Calc Performed By: #### L 100.0500, L500.4050 #### [facility] [address] [place], [address] GAP 4 Low 5-15 [facility] Comment on above: Order Comment: 203.1 Performed By: #### L 100.0500, L500.4050 #### [facility] [address] [place], [address] GFR/1.73 sq M.predicted among non-blacks MDRD (S/P/Bld) [Vol rate/Area] 48 mL/min/{1.73_m2} Low >60 [facility] Comment on above: Order Comment: 203.1 Result Comment: Non- GFR Calc Performed By: #### L 100.0500, L500.4050 #### [facility] [address] [place], [address] Globulin (S) [Mass/Vol] 4.3 g/dL High 2.2-4.2 [facility] Comment on above: Order Comment: 203.1 Performed By: #### L 100.0500, L500.4050 #### [facility] [address] [place], [address] Glucose [Mass/Vol] 97 mg/dL Normal 74-106 [facility] Comment on above: Order Comment: 203.1 Performed By: #### L 100.0500, L500.4050 #### [facility] [address] [place], [address] Potassium [Moles/Vol] 3.7 mmol/L Normal 3.5-5.1 [facility] Comment on above: Order Comment: 203.1 Performed By: #### L 100.0500, L500.4050 #### [facility] [address] [place], [address] Sodium [Moles/Vol] 139 mmol/L Normal 136-145 [facility] Comment on above: Order Comment: 203.1 Performed By: #### L 100.0500, L500.4050 #### [facility] [address] [place], [address] T PROT 6.3 g/dL Low 6.4-8.2 [facility] Comment on above: Order Comment: 203.1 Performed By: #### L 100.0500, L500.4050 #### [facility] [address] [place], [address] Urea nitrogen [Mass/Vol] 16 mg/dL Normal 7-18 [facility] Comment on above: Order Comment: 203.1 Performed By: #### L 100.0500, L500.4050 #### [facility] [address] [place], [address] Determination of erythrocyte mean corpuscular volume (MCV)Ordered By: Christiano Delcid on 07-30-2023 MCV (RBC) [Entitic vol] 83.9 fL 81-99 [facility] Erythrocyte distribution wid th ratioOrdered By: Christiano Delcid on 07-30-2023 Erythrocyte distribution width (RBC) [Ratio] 14.0 % 11.6-14.6 [facility] Erythrocyte distribution wid th standard deviationOrdered By: Christiano Delcid on 07-30-2023 Erythrocyte distribution width (RBC) [Entitic vol] 43.1 fL 35.1-43.9 [facility] Hematocrit Auto (Bld) [Volum e fraction]Ordered By: Christiano Delcid on 07-30-2023 Hematocrit (Bld) [Volume fraction] 26.0 % 37-47 [facility] - Chemistry and C hemistry - challengeOrdered By: Christiano Delcid on 07-30-2023 Albumin/Globulin [Mass ratio] 0.5 {ratio} 0.9-2.4 [facility] ALP [Catalytic activity/Vol] 75 U/L 45-117 [facility] ALT [Catalytic activity/Vol] 14 U/L 13-56 [facility] CO2 [Moles/Vol] 29.0 mmol/L 21.0-32.0 [facility] Globulin (S) [Mass/Vol] 4.3 g/dL 2.2-4.2 [facility] Urea nitrogen/Creatinine [Mass ratio] 13.9 mg/mg 10-20 [facility] - Hematology and Cell countsOrdered By: Christiano Delcid on 07-30-2023 MCH (RBC) [Entitic mass] 25.8 pg 27.0-32.0 [facility] MCHC (RBC) [Mass/Vol] 30.8 g/dL 32-36 [facility] Platelet mean volume (Bld) [Entitic vol] 11.2 fL 6.2-12.0 [facility] Platelets (Bld) [#/Vol] 399 10*3/uL 150-450 [facility] No Panel InformationOrdered By: Christiano Delcid on 07-30-2023 Estimated GFR (MDRD) Amer 58 mL/min >60 [facility] Comment on above: GFR Calc Estimated GFR (MDRD) Non-Af Amer 48 mL/min >60 [facility] Comment on above: Non- GFR Calc RBC Auto (Bld) [#/Vol]Ordere d By: Christiano Delcid on 07-30-2023 RBC (Bld) [#/Vol] 3.10 10*6/uL 4.2-5.4 [facility] Serum or plasma calcium chandana urement (mass/volume)Ordered By: Christiano Delcid on 07-30-2023 Calcium [Mass/Vol] 8.6 mg/dL 8.5-10.1 [facility] [place] Serum or plasma creatinine m easurement (mass/volume)Ordered By: Christiano Delcid on 07-30-2023 Creatinine [Mass/Vol] 1.15 mg/dL 0.55-1.02 [facility] Comment on above: The validity of the calculated GFR & GFRAA in patients over 70 years has not been determined. Clinical correlation is essential. Serum or plasma urea nitroge n measurement (mass/volume)Ordered By: Christiano Delcid on 07-30-2023 Urea nitrogen [Mass/Vol] 16 mg/dL 7-18 [facility] Thin prep Papanicolaou smear with manual screeningOrdered By: Christiano Delcid on 07-30-2023 Thin prep Papanicolaou smear with manual screening 2.0 g/dL 3.2-5.0 [facility] Thin prep Papanicolaou smear with manual screening 17 U/L 15-37 [facility] Thin prep Papanicolaou smear with manual screening 4 5-15 [facility] Urine Cultureon 07-27-2023 [facility] Mixed Gram Positive Organisms Redbird Count 1000-10,000 [facility] Mixed contaminants. Submit a new specimen if indicated. Normal [facility] Comment on above: Performed By: #### L 400.0001, M100.2200 #### [facility] [address] [place], [address] Urinalysis, Completeon 07-24 BACTERIA 1+ /hpf Normal None Seen [facility] Comment on above: Order Comment: CLEAN CATCH Performed By: #### L 400.0001, M100.2200 #### [facility] [address] [place], [address] RBC 25-50 SEEN Normal 0-5 [facility] Comment on above: Order Comment: CLEAN CATCH Performed By: #### L 400.0001, M100.2200 #### [facility] [address] [place], [address] WBC 0-5 SEEN Normal 0-5 [facility] Comment on above: Order Comment: CLEAN CATCH Performed By: #### L 400.0001, M100.2200 #### [facility] [address] [place], [address] EPI,SQUAMOUS 0 SEEN Normal 5-10 [facility] Comment on above: Order Comment: CLEAN CATCH Performed By: #### L 400.0001, M100.2200 #### [facility] [address] [place], [address] Mucus Ql (Urine sed) 0 SEEN Normal [facility] Comment on above: Order Comment: CLEAN CATCH Performed By: #### L 400.0001, M100.2200 #### [facility] [address] [place], [address] Basophil percentageOrdered B y: Christiano Delcid on 07-24-2023 Basophil percentage 0-5 SEEN /hpf 0-5 [facility] Bilirubin Test strip Ql (U)O rdered By: Christiano Delcid on 07-24-2023 Bilirubin Ql (U) Negative Negative [facility] Culture, urineOrdered By: Francisco Vale on 07-24-2023 Bacteria identified Cx Nom (U) Positive [facility] Ketones Test strip Ql (U)Ord ered By: Christiano Delcid on 07-24-2023 Ketones Ql (U) Negative Negative [facility] Mucus LM Ql (Urine sed)Order ed By: Christiano Delcid on 07-24-2023 Mucus Ql (Urine sed) 0 SEEN /hpf [facility] Nitrite Test strip Ql (U)Ord ered By: Christiano Delcid on 07-24-2023 Nitrite Ql (U) Negative Negative [facility] No Panel InformationOrdered By: Christiano Delcid on 07-24-2023 Urine RBC 25-50 SEEN /hpf 0-5 [facility] Protein Test strip Ql (U)Ord ered By: Christiano Delcid on 07-24-2023 Protein Ql (U) 30 mg/dl Negative [facility] Squamous epithelial cells de tection in urine sediment by light microscopyOrdered By: Christiano Delcid on 07-24-2023 Epithelial cells.squamous LM Ql (Urine sed) 0 SEEN /hpf 5-10 [facility] Urine blood detectionOrdered By: Christiano Delcid on 07-24-2023 RBC Ql (U) 250 /ul Negative [facility] Urine clarityOrdered By: Tonja Delcid on 07-24-2023 Clarity (U) Clear Clear [facility] Urine color determinationOrd ered By: Christiano Delcid on 07-24-2023 Color (U) Yellow Yellow [facility] Urine glucose detectionOrder ed By: Christiano Delcid on 07-24-2023 Glucose Ql (U) Normal mg/dl Normal [facility] Urine leukocyte esterase det ection by dipstickOrdered By: Christiano Delcid on 07-24-2023 Leukocyte esterase Test strip Ql (U) 25 /ul Negative [facility] Urine pHOrdered By: Christiano scott on 07-24-2023 pH (U) 7.0 [pH] 5.0 - 8.0 [facility] Urine sediment bacteria coun t by microscopy (number/high power field)Ordered By: Christiano Delcid on 07-24-2023 Bacteria LM.HPF (Urine sed) [#/Area] 1 /[HPF] None Seen [facility] Urine specific gravity measu rementOrdered By: Christiano Delcid on 07-24-2023 Specific gravity (U) [Rel density] 1.010 1.002-1.030 [facility] Urine urobilinogen measureme ntOrdered By: Christiano Delcid on 07-24-2023 Urobilinogen Ql (U) Normal mg/dl Normal [facility] Basic metabolic 1997 panelon 07-21-2023 Anion gap [Moles/Vol] 3 mmol/L 3 - 13 mmol/L [facility] Calcium [Mass/Vol] 8.3 mg/dL Low 8.4 - 10. 4 mg/dL [facility] Chloride [Moles/Vol] 99 mmol/L 98 - 10 7 mmol/L [facility] CO2 [Moles/Vol] 30 mmol/L 22 - 30 mmol/L [facility] Creatinine [Mass/Vol] 0.96 mg/dL 0.52 - 1.04 mg/dL [facility] GFR/1.73 sq M.predicted MDRD (S/P/Bld) [Vol rate/Area] 57.7 mL/min/{1.73_m2} Low - PINF [facility] Comment on above: Calculation based on the Chronic Kidney Disease Epidemiology Collaboration (CKD-EPI) equation refit without adjustment for race Glucose [Mass/Vol] 121 mg/dL High 70 - 100 mg/dL [facility] Interpretation and review of laboratory results Abnormal [facility] Potassium [Moles/Vol] 3.9 mmol/L 3.5 - 5.1 mmol/L [facility] Sodium [Moles/Vol] 132 mmol/L Low 135 - 145 mmol/L [facility] Urea nitrogen [Mass/Vol] 32 mg/dL High 7 - 17 mg/dL [facility] Basic metabolic 1997 panelon 07-19-2023 Anion gap [Moles/Vol] 3 mmol/L 3 - 13 mmol/L [facility] Calcium [Mass/Vol] 8.5 mg/dL 8.4 - 10. 4 mg/dL [facility] Chloride [Moles/Vol] 106 mmol/L 98 - 10 7 mmol/L [facility] CO2 [Moles/Vol] 26 mmol/L 22 - 30 mmol/L [facility] Creatinine [Mass/Vol] 0.95 mg/dL 0.52 - 1.04 mg/dL [facility] GFR/1.73 sq M.predicted MDRD (S/P/Bld) [Vol rate/Area] 58.5 mL/min/{1.73_m2} Low - PINF [facility] Comment on above: Calculation based on the Chronic Kidney Disease Epidemiology Collaboration (CKD-EPI) equation refit without adjustment for race Glucose [Mass/Vol] 138 mg/dL High 70 - 100 mg/dL [facility] Interpretation and review of laboratory results Abnormal [facility] Potassium [Moles/Vol] 4.3 mmol/L 3.5 - 5.1 mmol/L [facility] Sodium [Moles/Vol] 135 mmol/L 135 - 145 mmol/L [facility] Urea nitrogen [Mass/Vol] 37 mg/dL High 7 - 17 mg/dL [facility] CBC W Auto Differential pane l (Bld)Ordered By: Chuck Guerrero on 07-19-2023 Basophils (Bld) [#/Vol] 0.0 10*3/uL 0.0 - 0.2 10*3/uL [facility] Basophils/100 WBC (Bld) 0.2 % 0.0 - 2.0 % [facility] Eosinophils (Bld) [#/Vol] 0.0 10*3/uL 0.0 - 0.5 10*3/uL [facility] Eosinophils/100 WBC (Bld) 0.0 % Low 1.0 - 6.0 % [facility] Erythrocyte distribution width (RBC) [Ratio] 15.1 % High 11.5 - 14.5 % [facility] Hematocrit (Bld) [Volume fraction] 29.1 % Low 35.0 - 47.0 % [facility] Hemoglobin (Bld) [Mass/Vol] 9.8 g/dL Low 11.7 - 16.0 g/dL [facility] Interpretation and review of laboratory results Abnormal [facility] Lymphocytes (Bld) [#/Vol] 1.0 10*3/uL 1.0 - 4.3 10*3/uL [facility] Lymphocytes/100 WBC (Bld) 12.2 % Low 20.0 - 40.0 % [facility] MCH (RBC) [Entitic mass] 27.4 pg 26. 0 - 34.0 pg [facility] MCHC (RBC) [Mass/Vol] 33.8 % 32.0 - 36.0 % [facility] MCV (RBC) [Entitic vol] 81.2 fL 80.0 - 98.0 fL [facility] Monocytes (Bld) [#/Vol] 0.6 10*3/uL 0.0 - 0.8 10*3/uL [facility] Monocytes/100 WBC (Bld) 7.5 % 2.0 - 10.0 % [facility] Neutrophils (Bld) [#/Vol] 6.6 10*3/uL 1.8 - 7.0 10*3/uL [facility] Neutrophils/100 WBC (Bld) 80.1 % High 40.0 - 80.0 % [facility] Nucleated RBC/100 WBC (Bld) [Ratio] 0.0 % [facility] Platelet mean volume (Bld) [Entitic vol] 7.4 fL 7.4 - 12.4 fL [facility] Platelets (Bld) [#/Vol] 516 10*3/uL High 140 - 440 10*3/uL [facility] RBC (Bld) [#/Vol] 3.58 10*6/uL Low 3.8 - 5.20 10*6/uL [facility] WBC (Bld) [#/Vol] 8.2 10*3/uL 3.6 - 10.7 10*3/uL [facility] No Panel InformationOrdered By: Mack Stover on 07-18-2023 Interpretation and review of laboratory results Normal [facility] Legionella pneumophila Ag Not detected Not Detected [facility] Streptococcus pneumoniae Ag Not detected Not Detected [facility] Methodology: Lateral flow enzyme immunoassay This assay is approved for detection of antigens to Streptococcus pneumoniae and Legionella pneumophila serogroup 1; however, other L. pneumophila serogroups may also be detected. [facility] Basic metabolic 1998 panelon 07-17-2023 Anion gap [Moles/Vol] 9 mmol/L 3 - 13 mmol/L [facility] Calcium [Mass/Vol] 8.2 mg/dL Low 8.4 - 10. 4 mg/dL [facility] Chloride [Moles/Vol] 106 mmol/L 98 - 10 7 mmol/L [facility] CO2 [Moles/Vol] 20 mmol/L Low 22 - 30 mmol/L [facility] Creatinine [Mass/Vol] 1.01 mg/dL 0.52 - 1.04 mg/dL [facility] GFR/1.73 sq M.predicted MDRD (S/P/Bld) [Vol rate/Area] 54.3 mL/min/{1.73_m2} Low - PINF [facility] Comment on above: Calculation based on the Chronic Kidney Disease Epidemiology Collaboration (CKD-EPI) equation refit without adjustment for race Glucose [Mass/Vol] 189 mg/dL High 70 - 100 mg/dL [facility] Interpretation and review of laboratory results Abnormal [facility] Potassium [Moles/Vol] 3.4 mmol/L Low 3.5 - 5.1 mmol/L [facility] Sodium [Moles/Vol] 135 mmol/L 135 - 145 mmol/L [facility] Urea nitrogen [Mass/Vol] 18 mg/dL High 7 - 17 mg/dL [facility] CBC panel Auto (Bld)on 07-17 Erythrocyte distribution width (RBC) [Ratio] 15.4 % High 11.5 - 14.5 % [facility] Hematocrit (Bld) [Volume fraction] 30.9 % Low 35.0 - 47.0 % [facility] Hemoglobin (Bld) [Mass/Vol] 10.2 g/dL Low 11.7 - 16.0 g/dL [facility] Interpretation and review of laboratory results Abnormal [facility] MCH (RBC) [Entitic mass] 26.9 pg 26. 0 - 34.0 pg [facility] MCHC (RBC) [Mass/Vol] 33.0 % 32.0 - 36.0 % [facility] MCV (RBC) [Entitic vol] 81.5 fL 80.0 - 98.0 fL [facility] Platelet mean volume (Bld) [Entitic vol] 7.8 fL 7.4 - 12.4 fL [facility] Platelets (Bld) [#/Vol] 415 10*3/uL 140 - 440 10*3/uL [facility] RBC (Bld) [#/Vol] 3.79 10*6/uL Low 3.8 - 5.20 10*6/uL [facility] WBC (Bld) [#/Vol] 3.3 10*3/uL Low 3.6 - 10.7 10*3/uL [facility] Basic metabolic 1998 panelon 07-16-2023 Anion gap [Moles/Vol] 4 mmol/L 3 - 13 mmol/L [facility] Calcium [Mass/Vol] 7.8 mg/dL Low 8.4 - 10. 4 mg/dL [facility] Chloride [Moles/Vol] 109 mmol/L High 98 - 10 7 mmol/L [facility] CO2 [Moles/Vol] 18 mmol/L Low 22 - 30 mmol/L [facility] Creatinine [Mass/Vol] 0.83 mg/dL 0.52 - 1.04 mg/dL [facility] GFR/1.73 sq M.predicted MDRD (S/P/Bld) [Vol rate/Area] 68.8 mL/min/{1.73_m2} - PINF [facility] Comment on above: Calculation based on the Chronic Kidney Disease Epidemiology Collaboration (CKD-EPI) equation refit without adjustment for race Glucose [Mass/Vol] 103 mg/dL High 70 - 100 mg/dL [facility] Interpretation and review of laboratory results Abnormal [facility] Potassium [Moles/Vol] 3.6 mmol/L 3.5 - 5.1 mmol/L [facility] Sodium [Moles/Vol] 131 mmol/L Low 135 - 145 mmol/L [facility] Urea nitrogen [Mass/Vol] 15 mg/dL 7 - 17 mg/dL [facility] CBC panel Auto (Bld)on 07-16 Erythrocyte distribution width (RBC) [Ratio] 14.9 % High 11.5 - 14.5 % [facility] Hematocrit (Bld) [Volume fraction] 29.3 % Low 35.0 - 47.0 % [facility] Hemoglobin (Bld) [Mass/Vol] 9.6 g/dL Low 11.7 - 16.0 g/dL [facility] Interpretation and review of laboratory results Abnormal [facility] MCH (RBC) [Entitic mass] 27.1 pg 26. 0 - 34.0 pg [facility] MCHC (RBC) [Mass/Vol] 32.8 % 32.0 - 36.0 % [facility] MCV (RBC) [Entitic vol] 82.7 fL 80.0 - 98.0 fL [facility] Platelet mean volume (Bld) [Entitic vol] 7.5 fL 7.4 - 12.4 fL [facility] Platelets (Bld) [#/Vol] 391 10*3/uL 140 - 440 10*3/uL [facility] RBC (Bld) [#/Vol] 3.55 10*6/uL Low 3.8 - 5.20 10*6/uL [facility] WBC (Bld) [#/Vol] 4.3 10*3/uL 3.6 - 10.7 10*3/uL [facility] No Panel InformationOrdered By: Luzma Batista on 07-16-2023 Interpretation and review of laboratory results Normal [facility] Legionella pneumophila Ag Not detected Not Detected [facility] Streptococcus pneumoniae Ag Not detected Not Detected [facility] Methodology: Lateral flow enzyme immunoassay This assay is approved for detection of antigens to Streptococcus pneumoniae and Legionella pneumophila serogroup 1; however, other L. pneumophila serogroups may also be detected. [facility] Respiratory pathogens DNA an d RNA panel MELANY+non-probe (Nph)on 07-16-2023 Adenovirus Not detected Not Detected [facility] B. pertussis DNA MELANY+probe Ql (Unsp spec) Not detected Not Detected [facility] Bordetella parapertussis Not detected Not Detected [facility] Chlamydia pneumoniae Not detected Not Detected [facility] Coronavirus 229E Not detected Not Detected [facility] Coronavirus HKU1 Not detected Not Detected [facility] Coronavirus NL63 Not detected Not Detected [facility] Coronavirus OC43 Not detected Not Detected [facility] FLUAV RNA MELANY+non-probe Ql (Nph) Detected Abnormal Not Detected [facility] FLUBV RNA MELANY+non-probe Ql (Nph) Not detected Not Detected [facility] Human Metapneumovirus Not detected Not Detected [facility] Human Rhinovirus/Enterovirus Not detected Not Detected [facility] Interpretation and review of laboratory results Abnormal [facility] Mycoplasma pneumoniae Not detected Not Detected [facility] Parainfluenza 1 Not detected Not Detected [facility] Parainfluenza 2 Not detected Not Detected [facility] Parainfluenza 3 Not detected Not Detected [facility] Parainfluenza 4 Not detected Not Detected [facility] Respiratory Syncytial Virus Not detected Not Detected [facility] SARS-CoV-2 (COVID-19) RNA MELANY+non-probe Ql (Nph) Not detected Not Detected [facility] Methodology: Multipl ex PCR [facility] XR Chest 2 Viewson 4 Small effusions with associated atelectasis. Pathcy opacity in the right lower lobe may reflect a superimposed infectious/inflammator y process. Prominence of the central vasculature without overt pulmonary edema. Prominence of the superior mediastinum,stable, likely due to enlarged thyroid gland. Report Dictated on Electronically Signed By: Chester Hill MD Electronically Signed Date/Time: 07/16/2023 3:35 PM EST [facility] Patient Name: YELENA CHANDRA : 1935 Exam Date/Time: 07/16/2023 14:39 Procedure: XR CHEST 2 VIEWS Ordering Provider: GRIFFITH ANGELA Reason For Exam: Shortness of breath EXAMINATION: CHEST RADIOGRAPH (2 VIEW FRONTAL & LATERAL) Clinical History: Shortness of breath Comparison: AP chest radiograph 07/11/2023, chest CTA 06/18/2021 two-view chest radiograph 05/28/2017 RESULT: Lines, tubes, and devices: None. Lungs and pleura: Blunting of the posterior costophrenic angles consistent with small effusions with associated atelectasis. Prominence of central pulmonary vasculature without overt pulmonary edema. Mild patchy right basilar opacity may reflect a superimposed infectious/inflammator y process. No sizable pneumothorax. Cardiomediastinal silhouette: Stable cardiomediastinal silhouette. Stable prominence of the superior mediastinum likely due to enlarged thyroid gland and assessed on prior chest CT. Other: Degenerative changes of the thoracic spine and advanced degenerative changes of the shoulders are again noted shoulders. [facility] Chester Hill MD - 07/16/2023 Patient Name: YELENA CHANDRA : 1935 Exam Date/Time: 07/16/2023 14:39 Procedure: XR CHEST 2 VIEWS Ordering Provider: GRIFFITH ANGELA Reason For Exam: Shortness of breath EXAMINATION: CHEST RADIOGRAPH (2 VIEW FRONTAL & LATERAL) Clinical History: Shortness of breath Comparison: AP chest radiograph 07/11/2023, chest CTA 06/18/2021 two-view chest radiograph 05/28/2017 RESULT: Lines, tubes, and devices: None. Lungs and pleura: Blunting of the posterior costophrenic angles consistent with small effusions with associated atelectasis. Prominence of central pulmonary vasculature without overt pulmonary edema. Mild patchy right basilar opacity may reflect a superimposed infectious/inflammator y process. No sizable pneumothorax. Cardiomediastinal silhouette: Stable cardiomediastinal silhouette. Stable prominence of the superior mediastinum likely due to enlarged thyroid gland and assessed on prior chest CT. Other: Degenerative changes of the thoracic spine and advanced degenerative changes of the shoulders are again noted shoulders. IMPRESSION: Small effusions with associated atelectasis. Pathcy opacity in the right lower lobe may reflect a superimposed infectious/inflammator y process. Prominence of the central vasculature without overt pulmonary edema. Prominence of the superior mediastinum,stable, likely due to enlarged thyroid gland. Report Dictated on Electronically Signed By: Chester Hill MD Electronically Signed Date/Time: 07/16/2023 3:35 PM EST [facility] Radiology Study observation (narrative) [facility] XR Chest 2 ViewsOrdered By: Chester Hill on 07-16-2023 [facility] Work Phone: 25-hydroxyvitamin D3 [Mass/V ol]on 07-15-2023 Interpretation and review of laboratory results Normal [facility] Therapy is based on measurement of Total 25-OHD with the following classification levels: Less than 20 ng/mL: Indicative of Vit D deficiency 20-30 ng/mL: Suggests Vit D insufficiency Optimal: Greater than or equal to 30 ng/mL Test performed by [employer] Competitive Immunoassay, measuring Total Vitamin D, not individual fractions. [facility] Laboratory - Chemistry and C hemistry - challengeon 07-15-2023 25-hydroxyvitamin D3 [Mass/Vol] 37 ng/mL 30 - 100 ng/mL [facility] Basic metabolic 1998 panelon 07-14-2023 Anion gap [Moles/Vol] 5 mmol/L 3 - 13 mmol/L [facility] Calcium [Mass/Vol] 8.0 mg/dL Low 8.4 - 10. 4 mg/dL [facility] Chloride [Moles/Vol] 109 mmol/L High 98 - 10 7 mmol/L [facility] CO2 [Moles/Vol] 21 mmol/L Low 22 - 30 mmol/L [facility] Creatinine [Mass/Vol] 0.88 mg/dL 0.52 - 1.04 mg/dL [facility] GFR/1.73 sq M.predicted MDRD (S/P/Bld) [Vol rate/Area] 64.1 mL/min/{1.73_m2} - PINF [facility] Comment on above: Calculation based on the Chronic Kidney Disease Epidemiology Collaboration (CKD-EPI) equation refit without adjustment for race Glucose [Mass/Vol] 112 mg/dL High 70 - 100 mg/dL [facility] Interpretation and review of laboratory results Abnormal [facility] Potassium [Moles/Vol] 3.7 mmol/L 3.5 - 5.1 mmol/L [facility] Sodium [Moles/Vol] 135 mmol/L 135 - 145 mmol/L [facility] Urea nitrogen [Mass/Vol] 17 mg/dL 7 - 17 mg/dL [facility] CBC W Auto Differential pane l (Bld)Ordered By: Marcelo Morocho on 07-14-2023 Basophils (Bld) [#/Vol] 0.1 10*3/uL 0.0 - 0.2 10*3/uL [facility] Basophils/100 WBC (Bld) 0.9 % 0.0 - 2.0 % [facility] Eosinophils (Bld) [#/Vol] 0.2 10*3/uL 0.0 - 0.5 10*3/uL [facility] Eosinophils/100 WBC (Bld) 3.5 % 1.0 - 6.0 % [facility] Erythrocyte distribution width (RBC) [Ratio] 14.6 % High 11.5 - 14.5 % [facility] Hematocrit (Bld) [Volume fraction] 31.0 % Low 35.0 - 47.0 % [facility] Hemoglobin (Bld) [Mass/Vol] 10.3 g/dL Low 11.7 - 16.0 g/dL [facility] Interpretation and review of laboratory results Abnormal [facility] Lymphocytes (Bld) [#/Vol] 0.7 10*3/uL Low 1.0 - 4.3 10*3/uL [facility] Lymphocytes/100 WBC (Bld) 10.4 % Low 20.0 - 40.0 % [facility] MCH (RBC) [Entitic mass] 27.3 pg 26. 0 - 34.0 pg [facility] MCHC (RBC) [Mass/Vol] 33.3 % 32.0 - 36.0 % [facility] MCV (RBC) [Entitic vol] 82.0 fL 80.0 - 98.0 fL [facility] Monocytes (Bld) [#/Vol] 0.3 10*3/uL 0.0 - 0.8 10*3/uL [facility] Monocytes/100 WBC (Bld) 3.9 % 2.0 - 10.0 % [facility] Neutrophils (Bld) [#/Vol] 5.5 10*3/uL 1.8 - 7.0 10*3/uL [facility] Neutrophils/100 WBC (Bld) 81.3 % High 40.0 - 80.0 % [facility] Nucleated RBC/100 WBC (Bld) [Ratio] 0.0 % [facility] Platelet mean volume (Bld) [Entitic vol] 7.5 fL 7.4 - 12.4 fL [facility] Platelets (Bld) [#/Vol] 463 10*3/uL High 140 - 440 10*3/uL [facility] RBC (Bld) [#/Vol] 3.78 10*6/uL Low 3.8 - 5.20 10*6/uL [facility] WBC (Bld) [#/Vol] 6.7 10*3/uL 3.6 - 10.7 10*3/uL [facility] Basic metabolic 1998 panelon 07-13-2023 Anion gap [Moles/Vol] 4 mmol/L 3 - 13 mmol/L [facility] Calcium [Mass/Vol] 8.1 mg/dL Low 8.4 - 10. 4 mg/dL [facility] Chloride [Moles/Vol] 108 mmol/L High 98 - 10 7 mmol/L [facility] CO2 [Moles/Vol] 21 mmol/L Low 22 - 30 mmol/L [facility] Creatinine [Mass/Vol] 1.03 mg/dL 0.52 - 1.04 mg/dL [facility] GFR/1.73 sq M.predicted MDRD (S/P/Bld) [Vol rate/Area] 53.1 mL/min/{1.73_m2} Low - PINF [facility] Comment on above: Calculation based on the Chronic Kidney Disease Epidemiology Collaboration (CKD-EPI) equation refit without adjustment for race Glucose [Mass/Vol] 140 mg/dL High 70 - 100 mg/dL [facility] Interpretation and review of laboratory results Abnormal [facility] Potassium [Moles/Vol] 4.3 mmol/L 3.5 - 5.1 mmol/L [facility] Sodium [Moles/Vol] 134 mmol/L Low 135 - 145 mmol/L [facility] Urea nitrogen [Mass/Vol] 19 mg/dL High 7 - 17 mg/dL [facility] CBC W Auto Differential pane l (Bld)on 07-13-2023 Basophils (Bld) [#/Vol] 0.1 10*3/uL 0.0 - 0.2 10*3/uL [facility] Basophils/100 WBC (Bld) 1.0 % 0.0 - 2.0 % [facility] Eosinophils (Bld) [#/Vol] 0.2 10*3/uL 0.0 - 0.5 10*3/uL [facility] Eosinophils/100 WBC (Bld) 2.2 % 1.0 - 6.0 % [facility] [facility] Erythrocyte distribution width (RBC) [Ratio] 15.0 % High 11.5 - 14.5 % [facility] Hematocrit (Bld) [Volume fraction] 30.8 % Low 35.0 - 47.0 % [facility] Hemoglobin (Bld) [Mass/Vol] 10.5 g/dL Low 11.7 - 16.0 g/dL [facility] Interpretation and review of laboratory results Abnormal [facility] Lymphocytes (Bld) [#/Vol] 0.8 10*3/uL Low 1.0 - 4.3 10*3/uL [facility] Lymphocytes/100 WBC (Bld) 9.5 % Low 20.0 - 40.0 % [facility] MCH (RBC) [Entitic mass] 27.6 pg 26. 0 - 34.0 pg [facility] MCHC (RBC) [Mass/Vol] 34.0 % 32.0 - 36.0 % [facility] MCV (RBC) [Entitic vol] 81.3 fL 80.0 - 98.0 fL [facility] Monocytes (Bld) [#/Vol] 0.3 10*3/uL 0.0 - 0.8 10*3/uL [facility] Monocytes/100 WBC (Bld) 4.1 % 2.0 - 10.0 % [facility] Neutrophils (Bld) [#/Vol] 6.8 10*3/uL 1.8 - 7.0 10*3/uL [facility] Neutrophils/100 WBC (Bld) 83.2 % High 40.0 - 80.0 % [facility] Nucleated RBC/100 WBC (Bld) [Ratio] 0.0 % [facility] Platelet mean volume (Bld) [Entitic vol] 7.5 fL 7.4 - 12.4 fL [facility] Platelets (Bld) [#/Vol] 463 10*3/uL High 140 - 440 10*3/uL [facility] RBC (Bld) [#/Vol] 3.79 10*6/uL Low 3.8 - 5.20 10*6/uL [facility] WBC (Bld) [#/Vol] 8.1 10*3/uL 3.6 - 10.7 10*3/uL [facility] Basic metabolic 1998 panelOr dered By: Rama Olsen on 07-12-2023 Anion gap [Moles/Vol] 6 mmol/L 3 - 13 mmol/L [facility] Calcium [Mass/Vol] 8.2 mg/dL Low 8.4 - 10. 4 mg/dL [facility] Chloride [Moles/Vol] 107 mmol/L 98 - 10 7 mmol/L [facility] CO2 [Moles/Vol] 20 mmol/L Low 22 - 30 mmol/L [facility] Creatinine [Mass/Vol] 0.79 mg/dL 0.52 - 1.04 mg/dL [facility] GFR/1.73 sq M.predicted MDRD (S/P/Bld) [Vol rate/Area] 73.0 mL/min/{1.73_m2} - PINF [facility] Comment on above: Calculation based on the Chronic Kidney Disease Epidemiology Collaboration (CKD-EPI) equation refit without adjustment for race Glucose [Mass/Vol] 108 mg/dL High 70 - 100 mg/dL [facility] Interpretation and review of laboratory results Abnormal [facility] Potassium [Moles/Vol] 4.4 mmol/L 3.5 - 5.1 mmol/L [facility] Sodium [Moles/Vol] 134 mmol/L Low 135 - 145 mmol/L [facility] Urea nitrogen [Mass/Vol] 17 mg/dL 7 - 17 mg/dL [facility] Slightly hemolyzed [facility] CBC W Auto Differential pane l (Bld)on 07-12-2023 Basophils (Bld) [#/Vol] 0.1 10*3/uL 0.0 - 0.2 10*3/uL [facility] Basophils/100 WBC (Bld) 0.9 % 0.0 - 2.0 % [facility] Eosinophils (Bld) [#/Vol] 0.1 10*3/uL 0.0 - 0.5 10*3/uL [facility] Eosinophils/100 WBC (Bld) 1.3 % 1.0 - 6.0 % [facility] Erythrocyte distribution width (RBC) [Ratio] 14.9 % High 11.5 - 14.5 % [facility] Hematocrit (Bld) [Volume fraction] 34.0 % Low 35.0 - 47.0 % [facility] Hemoglobin (Bld) [Mass/Vol] 11.2 g/dL Low 11.7 - 16.0 g/dL [facility] Interpretation and review of laboratory results Abnormal [facility] Lymphocytes (Bld) [#/Vol] 1.4 10*3/uL 1.0 - 4.3 10*3/uL [facility] Lymphocytes/100 WBC (Bld) 18.3 % Low 20.0 - 40.0 % [facility] MCH (RBC) [Entitic mass] 27.3 pg 26. 0 - 34.0 pg [facility] MCHC (RBC) [Mass/Vol] 33.0 % 32.0 - 36.0 % [facility] MCV (RBC) [Entitic vol] 82.6 fL 80.0 - 98.0 fL [facility] Monocytes (Bld) [#/Vol] 0.5 10*3/uL 0.0 - 0.8 10*3/uL [facility] Monocytes/100 WBC (Bld) 6.3 % 2.0 - 10.0 % [facility] Neutrophils (Bld) [#/Vol] 5.5 10*3/uL 1.8 - 7.0 10*3/uL [facility] Neutrophils/100 WBC (Bld) 73.2 % 40.0 - 80.0 % [facility] Nucleated RBC/100 WBC (Bld) [Ratio] 0.0 % [facility] Platelet mean volume (Bld) [Entitic vol] 8.1 fL 7.4 - 12.4 fL [facility] Platelets (Bld) [#/Vol] 453 10*3/uL High 140 - 440 10*3/uL [facility] RBC (Bld) [#/Vol] 4.12 10*6/uL 3.8 - 5.20 10*6/uL [facility] WBC (Bld) [#/Vol] 7.6 10*3/uL 3.6 - 10.7 10*3/uL [facility] Urinalysis complete panel (U )Ordered By: Torres Madden on 07-12-2023 Bacteria LM.HPF (Urine sed) [#/Area] Few Abnormal Negative /HPF [facility] Bilirubin Ql (U) Negative Negative mg/dL [facility] Clarity (U) Turbid Abnormal Clear [facility] Color (U) Yellow Lt. Yellow [facility] Epithelial cells.squamous LM.HPF (Urine sed) [#/Area] 0-2 [facility] Gl[facility] Ql (U) Normal Normal (<70) mg/dL [facility] Hemoglobin Ql (U) 0.5 mg/dL Abnormal [facility] Hyaline casts Auto (Urine sed) [#/Area] 0-2 Abnormal Negative /LPF [facility] Interpretation and review of laboratory results Abnormal [facility] Ketones (U) [Mass/Vol] Negative Negat [place] mg/dL [facility] Leukocyte esterase Test strip Ql (U) Negative Negative Dieter/uL [facility] Mucus LM.HPF (Urine sed) [#/Area] Few Negative /LPF [facility] Nitrite Ql (U) Negative Negative [facility] th pH (U) 6.0 [pH] 5.0 - 8.0 pH [facility] Protein (U) [Mass/Vol] 20 mg/dL Abnormal Negative [facility] RBC LM.HPF (Urine sed) [#/Area] 51-100 Abnormal [facility] Specific gravity (U) [Rel density] 1.014 1.005 - 1.030 [facility] Urobilinogen (U) [Mass/Vol] 6 mg/dL Abnormal Normal (0-1) [facility] WBC LM.HPF (Urine sed) [#/Area] 0-2 [facility] CBC W Auto Differential pane l (Bld)Ordered By: Elton Reed on 07-11-2023 Basophils (Bld) [#/Vol] 0.1 10*3/uL 0.0 - 0.2 10*3/uL [facility] Basophils/100 WBC (Bld) 0.9 % 0.0 - 2.0 % [facility] Eosinophils (Bld) [#/Vol] 0.1 10*3/uL 0.0 - 0.5 10*3/uL [facility] Eosinophils/100 WBC (Bld) 1.2 % 1.0 - 6.0 % [facility] Erythrocyte distribution width (RBC) [Ratio] 14.8 % High 11.5 - 14.5 % [facility] Hematocrit (Bld) [Volume fraction] 34.8 % Low 35.0 - 47.0 % [facility] Hemoglobin (Bld) [Mass/Vol] 12.0 g/dL 11.7 - 16.0 g/dL [facility] Interpretation and review of laboratory results Abnormal [facility] Lymphocytes (Bld) [#/Vol] 1.0 10*3/uL 1.0 - 4.3 10*3/uL [facility] Lymphocytes/100 WBC (Bld) 10.0 % Low 20.0 - 40.0 % [facility] MCH (RBC) [Entitic mass] 28.3 pg 26. 0 - 34.0 pg [facility] MCHC (RBC) [Mass/Vol] 34.6 % 32.0 - 36.0 % [facility] MCV (RBC) [Entitic vol] 81.9 fL 80.0 - 98.0 fL [facility] Monocytes (Bld) [#/Vol] 0.5 10*3/uL 0.0 - 0.8 10*3/uL [facility] Monocytes/100 WBC (Bld) 4.9 % 2.0 - 10.0 % [facility] Neutrophils (Bld) [#/Vol] 8.4 10*3/uL High 1.8 - 7.0 10*3/uL [facility] Neutrophils/100 WBC (Bld) 83.0 % High 40.0 - 80.0 % [facility] Nucleated RBC/100 WBC (Bld) [Ratio] 0.0 % [facility] Platelet mean volume (Bld) [Entitic vol] 8.7 fL 7.4 - 12.4 fL [facility] Platelets (Bld) [#/Vol] 502 10*3/uL High 140 - 440 10*3/uL [facility] RBC (Bld) [#/Vol] 4.25 10*6/uL 3.8 - 5.20 10*6/uL [facility] WBC (Bld) [#/Vol] 10.2 10*3/uL 3.6 - 10.7 10*3/uL [facility] Comprehensive metabolic 1998 panelon 07-11-2023 Albumin [Mass/Vol] 3.2 g/dL Low 3.5 - 5.0 g/dL [facility] ALP [Catalytic activity/Vol] 108 U/L 38 - 126 U/L [facility] ALT [Catalytic activity/Vol] 16 U/L 0 - 34 U/L [facility] Anion gap [Moles/Vol] 9 mmol/L 3 - 13 mmol/L [facility] AST [Catalytic activity/Vol] 32 U/L 15 - 46 U/L [facility] Bilirubin [Mass/Vol] 0.9 mg/dL 0.2 - 1 .3 mg/dL [facility] Calcium [Mass/Vol] 8.8 mg/dL 8.4 - 10. 4 mg/dL [facility] Chloride [Moles/Vol] 102 mmol/L 98 - 10 7 mmol/L [facility] CO2 [Moles/Vol] 23 mmol/L 22 - 30 mmol/L [facility] Creatinine [Mass/Vol] 0.88 mg/dL 0.52 - 1.04 mg/dL [facility] GFR/1.73 sq M.predicted MDRD (S/P/Bld) [Vol rate/Area] 64.1 mL/min/{1.73_m2} - PINF [facility] Comment on above: Calculation based on the Chronic Kidney Disease Epidemiology Collaboration (CKD-EPI) equation refit without adjustment for race Glucose [Mass/Vol] 115 mg/dL High 70 - 100 mg/dL [facility] Potassium [Moles/Vol] 3.0 mmol/L Low 3.5 - 5.1 mmol/L [facility] Protein [Mass/Vol] 7.4 g/dL 6.3 - 8.2 g/dL [facility] Sodium [Moles/Vol] 134 mmol/L Low 135 - 145 mmol/L [facility] Urea nitrogen [Mass/Vol] 15 mg/dL 7 - 17 mg/dL [facility] Laboratory - Chemistry and C hemistry - challengeon 07-11-2023 TSH Qn 1.414 m[IU]/L [facility] Troponin I.cardiac [Mass/Vol] ng/mL NINF - 0.034 ng/mL [facility] Magnesium [Mass/Vol] 1.4 mg/dL Low 1.6 - 2 .3 mg/dL [facility] No Panel Informationon 07-11 Interpretation and review of laboratory results Abnormal [facility] P [place] -22 degrees [facility] DE Interval 161 ms [facility] QRS [place] 77 degrees [facility] QRSD Interval 124 ms [facility] QT Interval 404 ms [facility] QTC Interval 505 ms [facility] T Wave [place] -10 degrees [facility] Sinus rhythm IVCD, consider RBBB Compared to ECG 12/26/2022 15:46:34 Atrial premature complex(es) no longer present similar to prior 12/26/22 Electronically Signed On 07-11-2023 17:53:19 EST by Chau Pascual CV Chau Chung MD - 07/11/2023 IMPRESSION: Sinus rhythm IVCD, consider RBBB Compared to ECG 12/26/2022 15:46:34 Atrial premature complex(es) no longer present similar to prior 12/26/22 Electronically Signed On 07-11-2023 17:53:19 EST by Chau Pascual [facility] TSH Qnon 07-11-2023 Interpretation and review of laboratory results Normal [facility] Troponin I.cardiac [Mass/Vol ]on 07-11-2023 Interpretation and review of laboratory results Normal [facility] Patients with high levels of Biotin oral intake (ie >5 mg/day) may have falsely decreased Troponin levels. [facility] Vital signson 07-11-2023 Heart rate 94 /min bpm [facility] XR Chest Single viewon 07-11 1. Stable examination. No acute findings. Report Dictated on Electronically Signed By: Zhou Gunn MD Electronically Signed Date/Time: 07/11/2023 6:25 PM EST [facility] Patient Name: YELENA CHANDRA : 1935 Exam Date/Time: 07/11/2023 18:22 Procedure: XR CHEST 1 VIEW Ordering Provider: PASCUAL MICHAEL Reason For Exam: tachypnea, failure to thrive CHEST PORTABLE CLINICAL INDICATION: tachypnea, failure to thrive TECHNIQUE: Portable chest x-ray(s). COMPARISON: CTA chest, May,; portable chest x-ray, December,. FINDINGS: Patient rotated to the right. Right paratracheal opacity again noted and corresponding to patient's known thyroid goiter, not appreciably changed. Cardiac and mediastinal silhouette within normal limits. Tortuous thoracic aorta again noted. Lungs show interstitial prominence or coarsening bilaterally, about the same. No focal consolidation or apparent pneumothorax. Degenerative change again noted in the thoracic spine and bilateral shoulders. [facility] Zhou Gunn MD - 07/11/2023 Patient Name: YELENA CHANDRA : 1935 Exam Date/Time: 07/11/2023 18:22 Procedure: XR CHEST 1 VIEW Ordering Provider: PASCUAL MICHAEL Reason For Exam: tachypnea, failure to thrive CHEST PORTABLE CLINICAL INDICATION: tachypnea, failure to thrive TECHNIQUE: Portable chest x-ray(s). COMPARISON: CTA chest, May,; portable chest x-ray, December,. FINDINGS: Patient rotated to the right. Right paratracheal opacity again noted and corresponding to patient's known thyroid goiter, not appreciably changed. Cardiac and mediastinal silhouette within normal limits. Tortuous thoracic aorta again noted. Lungs show interstitial prominence or coarsening bilaterally, about the same. No focal consolidation or apparent pneumothorax. Degenerative change again noted in the thoracic spine and bilateral shoulders. IMPRESSION: 1. Stable examination. No acute findings. Report Dictated on Electronically Signed By: Zhou Gunn MD Electronically Signed Date/Time: 07/11/2023 6:25 PM EST [facility] Radiology Study observation (narrative) [facility] XR Chest Single viewOrdered By: Zhou Gunn on 07-11-2023 [facility] Work Phone: CBC W Auto Differential pane l (Bld)Ordered By: He To on 12-26-2022 Basophils (Bld) [#/Vol] 0.1 10*3/uL 0.0 - 0.2 10*3/uL [facility] Basophils/100 WBC (Bld) 0.9 % 0.0 - 2.0 % [facility] Eosinophils (Bld) [#/Vol] 0.2 10*3/uL 0.0 - 0.5 10*3/uL [facility] Eosinophils/100 WBC (Bld) 3.3 % 1.0 - 6.0 % [facility] Erythrocyte distribution width (RBC) [Ratio] 14.6 % High 11.5 - 14.5 % [facility] Hematocrit (Bld) [Volume fraction] 34.7 % Low 35.0 - 47.0 % [facility] Hemoglobin (Bld) [Mass/Vol] 11.3 g/dL Low 11.7 - 16.0 g/dL [facility] Interpretation and review of laboratory results Abnormal [facility] Lymphocytes (Bld) [#/Vol] 1.5 10*3/uL 1.0 - 4.3 10*3/uL [facility] Lymphocytes/100 WBC (Bld) 21.5 % 20.0 - 40.0 % [facility] MCH (RBC) [Entitic mass] 26.7 pg 26. 0 - 34.0 pg [facility] MCHC (RBC) [Mass/Vol] 32.5 % 32.0 - 36.0 % [facility] MCV (RBC) [Entitic vol] 82.3 fL 80.0 - 98.0 fL [facility] Monocytes (Bld) [#/Vol] 0.7 10*3/uL 0.0 - 0.8 10*3/uL [facility] Monocytes/100 WBC (Bld) 10.0 % 2.0 - 10.0 % [facility] Neutrophils (Bld) [#/Vol] 4.5 10*3/uL 1.8 - 7.0 10*3/uL [facility] Neutrophils/100 WBC (Bld) 64.3 % 40.0 - 80.0 % [facility] Nucleated RBC/100 WBC (Bld) [Ratio] 0.2 % [facility] Platelet mean volume (Bld) [Entitic vol] 9.0 fL 7.4 - 12.4 fL [facility] Platelets (Bld) [#/Vol] 316 10*3/uL 140 - 440 10*3/uL [facility] RBC (Bld) [#/Vol] 4.21 10*6/uL 3.8 - 5.20 10*6/uL [facility] WBC (Bld) [#/Vol] 7.0 10*3/uL 3.6 - 10.7 10*3/uL [facility] CT Head WO contraston 2022 No acute findings. Report Dictated on Electronically Signed By: Iggy Stern MD Electronically Signed Date/Time: 12/26/2022 4:49 PM [facility] Patient Name: YELENA CHANDRA : 1935 Exam Date/Time: 12/26/2022 16:45 Procedure: CT HEAD WO IV CONTRAST Ordering Provider: DOMINGUEZ EMILIE Reason For Exam: Dizziness, persistent/recurrent, cardiac or vascular cause suspected CT head without contrast History: Dizziness Protocol: 3 mm axial images without IV contrast Dose reduction was employed with automated exposure control. There is no evidence of intracranial hemorrhage, extra-axial fluid collection, hydrocephalus, or acute infarct. No evidence of a mass of mass affect. The visualized portions of the paranasal sinuses and the mastoid air cells are clear. [facility] Iggy Stern MD - 12/26/2022 Patient Name: YELENA CHANDRA : 1935 Exam Date/Time: 12/26/2022 16:45 Procedure: CT HEAD WO IV CONTRAST Ordering Provider: DOMINGUEZ EMILIE Reason For Exam: Dizziness, persistent/recurrent, cardiac or vascular cause suspected CT head without contrast History: Dizziness Protocol: 3 mm axial images without IV contrast Dose reduction was employed with automated exposure control. There is no evidence of intracranial hemorrhage, extra-axial fluid collection, hydrocephalus, or acute infarct. No evidence of a mass of mass affect. The visualized portions of the paranasal sinuses and the mastoid air cells are clear. IMPRESSION: No acute findings. Report Dictated on Electronically Signed By: Iggy Stern MD Electronically Signed Date/Time: 12/26/2022 4:49 PM EDT [facility] CT Head WO contrastOrdered B y: Iggy Stern on 12-26-2022 [facility] Work Phone: Comprehensive metabolic 1998 panelon 12-26-2022 Albumin [Mass/Vol] 3.6 g/dL 3.5 - 5.0 g/dL [facility] ALP [Catalytic activity/Vol] 66 U/L 38 - 126 U/L [facility] ALT [Catalytic activity/Vol] 13 U/L 0 - 34 U/L [facility] Anion gap [Moles/Vol] 6 mmol/L 3 - 13 mmol/L [facility] AST [Catalytic activity/Vol] 33 U/L 15 - 46 U/L [facility] Bilirubin [Mass/Vol] 0.6 mg/dL 0.2 - 1 .3 mg/dL [facility] Calcium [Mass/Vol] 8.5 mg/dL 8.4 - 10. 4 mg/dL [facility] Chloride [Moles/Vol] 106 mmol/L 98 - 10 7 mmol/L [facility] CO2 [Moles/Vol] 27 mmol/L 22 - 30 mmol/L [facility] Creatinine [Mass/Vol] 1.01 mg/dL 0.52 - 1.04 mg/dL [facility] GFR/1.73 sq M.predicted MDRD (S/P/Bld) [Vol rate/Area] 54.7 mL/min/{1.73_m2} Low - PINF [facility] Comment on above: Calculation based on the Chronic Kidney Disease Epidemiology Collaboration (CKD-EPI) equation refit without adjustment for race Glucose [Mass/Vol] 104 mg/dL High 70 - 100 mg/dL [facility] Potassium [Moles/Vol] 3.5 mmol/L 3.5 - 5.1 mmol/L [facility] Protein [Mass/Vol] 7.0 g/dL 6.3 - 8.2 g/dL [facility] Sodium [Moles/Vol] 139 mmol/L 135 - 145 mmol/L [facility] Urea nitrogen [Mass/Vol] 17 mg/dL 7 - 17 mg/dL [facility] Slightly Hemolyzed [facility] Magnesiumon 12-26-2022 Magnesium [Mass/Vol] 1.5 mg/dL Low 1.6 - 2 .3 mg/dL [facility] No Panel Informationon 12-26 Interpretation and review of laboratory results Abnormal [facility] Radiology Study observation (narrative) [facility] Urinalysis complete panel (U )on 12-26-2022 Bacteria LM.HPF (Urine sed) [#/Area] Few Abnormal Negative /HPF [facility] Bilirubin Ql (U) Negative Negative mg/dL [facility] Clarity (U) Clear Clear [facility] Color (U) Yellow Lt. Yellow [facility] Epithelial cells.squamous LM.HPF (Urine sed) [#/Area] 0-2 [facility] h Glucose Ql (U) Normal Normal (<70) mg/dL [facility] Hemoglobin Ql (U) Negative Negative mg/dL [facility] Hyaline casts Auto (Urine sed) [#/Area] 0-2 Abnormal Negative /LPF [facility] Interpretation and review of laboratory results Abnormal [facility] Ketones (U) [Mass/Vol] Negative Negat [place] mg/dL [facility] Leukocyte esterase Test strip Ql (U) 25 Abnormal Negative Dieter/uL [facility] Mucus LM.HPF (Urine sed) [#/Area] Few Negative /LPF [facility] Nitrite Ql (U) Negative Negative [facility] th pH (U) 6.0 [pH] 5.0 - 8.0 pH [facility] Protein (U) [Mass/Vol] 30 mg/dL Abnormal Negative [facility] RBC LM.HPF (Urine sed) [#/Area] 3-5 Abnormal [facility] Specific gravity (U) [Rel density] 1.019 1.005 - 1.030 [facility] Urobilinogen (U) [Mass/Vol] Normal Normal (0-1) mg/dL [facility] WBC LM.HPF (Urine sed) [#/Area] 6-10 Abnormal [facility] XR Chest Single viewon 12-26 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 The heart, pulmonary vasculature, lungs and pleural spaces are normal. 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 The heart, pulmonary vasculature, lungs and pleural spaces are normal. 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 Report Dictated on Electronically Signed By: Iggy Stern MD Electronically Signed Date/Time: 12/26/2022 5:05 PM EDT [facility] CBC W Auto Differential pane l (Bld)on 08-07-2022 Basophils (Bld) [#/Vol] 0.1 10*3/uL 0.0 - 0.2 10*3/uL [facility] Basophils/100 WBC (Bld) 0.8 % 0.0 - 2.0 % [facility] Eosinophils (Bld) [#/Vol] 0.4 10*3/uL 0.0 - 0.5 10*3/uL [facility] Eosinophils/100 WBC (Bld) 3.3 % 1.0 - 6.0 % [facility] Erythrocyte distribution width (RBC) [Ratio] 13.7 % 11.5 - 14.5 % [facility] Hematocrit (Bld) [Volume fraction] 38.9 % 35.0 - 47.0 % [facility] Hemoglobin (Bld) [Mass/Vol] 12.7 g/dL 11.7 - 16.0 g/dL [facility] Interpretation and review of laboratory results Abnormal [facility] Lymphocytes (Bld) [#/Vol] 3.0 10*3/uL 1.0 - 4.3 10*3/uL [facility] Lymphocytes/100 WBC (Bld) 23.0 % 20.0 - 40.0 % [facility] MCH (RBC) [Entitic mass] 27.8 pg 26. 0 - 34.0 pg [facility] MCHC (RBC) [Mass/Vol] 32.8 % 32.0 - 36.0 % [facility] MCV (RBC) [Entitic vol] 84.7 fL 80.0 - 98.0 fL [facility] Monocytes (Bld) [#/Vol] 0.8 10*3/uL 0.0 - 0.8 10*3/uL [facility] Monocytes/100 WBC (Bld) 6.2 % 2.0 - 10.0 % [facility] Neutrophils (Bld) [#/Vol] 8.7 10*3/uL High 1.8 - 7.0 10*3/uL [facility] Neutrophils/100 WBC (Bld) 66.7 % 40.0 - 80.0 % [facility] Nucleated RBC/100 WBC (Bld) [Ratio] 0.1 % [facility] Platelet mean volume (Bld) [Entitic vol] 8.3 fL 7.4 - 12.4 fL [facility] Platelets (Bld) [#/Vol] 377 10*3/uL 140 - 440 10*3/uL [facility] RBC (Bld) [#/Vol] 4.58 10*6/uL 3.8 - 5.20 10*6/uL [facility] WBC (Bld) [#/Vol] 13.0 10*3/uL High 3.6 - 10.7 10*3/uL [facility] Comprehensive metabolic 1998 panelon 08-07-2022 Albumin [Mass/Vol] 3.2 g/dL Low 3.5 - 5.0 g/dL [facility] ALP [Catalytic activity/Vol] 73 U/L 38 - 126 U/L [facility] ALT [Catalytic activity/Vol] 21 U/L 0 - 34 U/L [facility] Anion gap [Moles/Vol] 1 mmol/L Low 3 - 13 mmol/L [facility] AST [Catalytic activity/Vol] 35 U/L 15 - 46 U/L [facility] Bilirubin [Mass/Vol] 0.4 mg/dL 0.2 - 1 .3 mg/dL [facility] Calcium [Mass/Vol] 8.1 mg/dL Low 8.4 - 10. 4 mg/dL [facility] Chloride [Moles/Vol] 106 mmol/L 98 - 10 7 mmol/L [facility] CO2 [Moles/Vol] 31 mmol/L High 22 - 30 mmol/L [facility] Creatinine [Mass/Vol] 0.97 mg/dL 0.52 - 1.04 mg/dL [facility] GFR/1.73 sq M.predicted MDRD (S/P/Bld) [Vol rate/Area] 57.4 mL/min/{1.73_m2} Low - PINF [facility] th Comment on above: Calculation based on the Chronic Kidney Disease Epidemiology Collaboration (CKD-EPI) equation refit without adjustment for race Glucose [Mass/Vol] 104 mg/dL High 70 - 100 mg/dL [facility] Interpretation and review of laboratory results Abnormal [facility] Potassium [Moles/Vol] 4.3 mmol/L 3.5 - 5.1 mmol/L [facility] Protein [Mass/Vol] 6.2 g/dL Low 6.3 - 8.2 g/dL [facility] Sodium [Moles/Vol] 138 mmol/L 135 - 145 mmol/L [facility] Urea nitrogen [Mass/Vol] 32 mg/dL High 7 - 17 mg/dL [facility] CBC W Auto Differential pane l (Bld)on 08-06-2022 Basophils (Bld) [#/Vol] 0.1 10*3/uL 0.0 - 0.2 10*3/uL [facility] Basophils/100 WBC (Bld) 0.5 % 0.0 - 2.0 % [facility] Eosinophils (Bld) [#/Vol] 0.3 10*3/uL 0.0 - 0.5 10*3/uL [facility] Eosinophils/100 WBC (Bld) 2.2 % 1.0 - 6.0 % [facility] Erythrocyte distribution width (RBC) [Ratio] 13.2 % 11.5 - 14.5 % [facility] Hematocrit (Bld) [Volume fraction] 37.2 % 35.0 - 47.0 % [facility] Hemoglobin (Bld) [Mass/Vol] 12.2 g/dL 11.7 - 16.0 g/dL [facility] Interpretation and review of laboratory results Abnormal [facility] Lymphocytes (Bld) [#/Vol] 2.4 10*3/uL 1.0 - 4.3 10*3/uL [facility] Lymphocytes/100 WBC (Bld) 18.0 % Low 20.0 - 40.0 % [facility] MCH (RBC) [Entitic mass] 27.8 pg 26. 0 - 34.0 pg [facility] MCHC (RBC) [Mass/Vol] 32.8 % 32.0 - 36.0 % [facility] MCV (RBC) [Entitic vol] 84.7 fL 80.0 - 98.0 fL [facility] Monocytes (Bld) [#/Vol] 1.1 10*3/uL High 0.0 - 0.8 10*3/uL [facility] Monocytes/100 WBC (Bld) 7.9 % 2.0 - 10.0 % [facility] Neutrophils (Bld) [#/Vol] 9.6 10*3/uL High 1.8 - 7.0 10*3/uL [facility] Neutrophils/100 WBC (Bld) 71.4 % 40.0 - 80.0 % [facility] Nucleated RBC/100 WBC (Bld) [Ratio] 0.1 % [facility] Platelet mean volume (Bld) [Entitic vol] 8.6 fL 7.4 - 12.4 fL [facility] Platelets (Bld) [#/Vol] 374 10*3/uL 140 - 440 10*3/uL [facility] RBC (Bld) [#/Vol] 4.39 10*6/uL 3.8 - 5.20 10*6/uL [facility] WBC (Bld) [#/Vol] 13.5 10*3/uL High 3.6 - 10.7 10*3/uL [facility] Comprehensive metabolic 1998 panelon 08-06-2022 Albumin [Mass/Vol] 3.1 g/dL Low 3.5 - 5.0 g/dL [facility] ALP [Catalytic activity/Vol] 66 U/L 38 - 126 U/L [facility] ALT [Catalytic activity/Vol] 22 U/L 0 - 34 U/L [facility] Anion gap [Moles/Vol] -1 mmol/L Low 3 - 13 mmol/L [facility] AST [Catalytic activity/Vol] 48 U/L High 15 - 46 U/L [facility] Bilirubin [Mass/Vol] 0.6 mg/dL 0.2 - 1 .3 mg/dL [facility] Calcium [Mass/Vol] 8.0 mg/dL Low 8.4 - 10. 4 mg/dL [facility] Chloride [Moles/Vol] 104 mmol/L 98 - 10 7 mmol/L [facility] CO2 [Moles/Vol] 31 mmol/L High 22 - 30 mmol/L [facility] Creatinine [Mass/Vol] 0.83 mg/dL 0.52 - 1.04 mg/dL [facility] GFR/1.73 sq M.predicted MDRD (S/P/Bld) [Vol rate/Area] 69.2 mL/min/{1.73_m2} - PINF [facility] Comment on above: Calculation based on the Chronic Kidney Disease Epidemiology Collaboration (CKD-EPI) equation refit without adjustment for race Glucose [Mass/Vol] 118 mg/dL High 70 - 100 mg/dL [facility] Interpretation and review of laboratory results Abnormal [facility] Potassium [Moles/Vol] 4.4 mmol/L 3.5 - 5.1 mmol/L [facility] Protein [Mass/Vol] 6.5 g/dL 6.3 - 8.2 g/dL [facility] Sodium [Moles/Vol] 135 mmol/L 135 - 145 mmol/L [facility] Urea nitrogen [Mass/Vol] 32 mg/dL High 7 - 17 mg/dL [facility] Slightly Hemolyzed [facility] CBC W Auto Differential pane l (Bld)Ordered By: Marcelo Morocho on 08-05-2022 Erythrocyte distribution width (RBC) [Ratio] 13.1 % 11.5 - 14.5 % [facility] Hematocrit (Bld) [Volume fraction] 36.0 % 35.0 - 47.0 % [facility] Hemoglobin (Bld) [Mass/Vol] 11.5 g/dL Low 11.7 - 16.0 g/dL [facility] MCH (RBC) [Entitic mass] 27.2 pg 26. 0 - 34.0 pg [facility] MCHC (RBC) [Mass/Vol] 32.0 % 32.0 - 36.0 % [facility] MCV (RBC) [Entitic vol] 85.0 fL 80.0 - 98.0 fL [facility] Nucleated RBC/100 WBC (Bld) [Ratio] 0.1 % [facility] Platelet mean volume (Bld) [Entitic vol] 8.6 fL 7.4 - 12.4 fL [facility] Platelets (Bld) [#/Vol] 355 10*3/uL 140 - 440 10*3/uL [facility] RBC (Bld) [#/Vol] 4.24 10*6/uL 3.8 - 5.20 10*6/uL [facility] WBC (Bld) [#/Vol] 11.9 10*3/uL High 3.6 - 10.7 10*3/uL [facility] Comprehensive metabolic 1998 panelon 08-05-2022 Albumin [Mass/Vol] 3.0 g/dL Low 3.5 - 5.0 g/dL [facility] ALP [Catalytic activity/Vol] 72 U/L 38 - 126 U/L [facility] ALT [Catalytic activity/Vol] 23 U/L 0 - 34 U/L [facility] Anion gap [Moles/Vol] 0 mmol/L Low 3 - 13 mmol/L [facility] AST [Catalytic activity/Vol] 46 U/L 15 - 46 U/L [facility] Bilirubin [Mass/Vol] 0.3 mg/dL 0.2 - 1 .3 mg/dL [facility] Calcium [Mass/Vol] 8.1 mg/dL Low 8.4 - 10. 4 mg/dL [facility] Chloride [Moles/Vol] 105 mmol/L 98 - 10 7 mmol/L [facility] CO2 [Moles/Vol] 32 mmol/L High 22 - 30 mmol/L [facility] Creatinine [Mass/Vol] 0.98 mg/dL 0.52 - 1.04 mg/dL [facility] GFR/1.73 sq M.predicted MDRD (S/P/Bld) [Vol rate/Area] 56.7 mL/min/{1.73_m2} Low - PINF [facility] Comment on above: Calculation based on the Chronic Kidney Disease Epidemiology Collaboration (CKD-EPI) equation refit without adjustment for race Glucose [Mass/Vol] 112 mg/dL High 70 - 100 mg/dL [facility] Interpretation and review of laboratory results Abnormal [facility] Potassium [Moles/Vol] 4.4 mmol/L 3.5 - 5.1 mmol/L [facility] Protein [Mass/Vol] 5.9 g/dL Low 6.3 - 8.2 g/dL [facility] Sodium [Moles/Vol] 137 mmol/L 135 - 145 mmol/L [facility] Urea nitrogen [Mass/Vol] 33 mg/dL High 7 - 17 mg/dL [facility] Manual differential performe d Ql (Bld)on 08-05-2022 Cells Counted Total (Bld) [#] 100 {cells} [facility] Elliptocytes LM Ql (Bld) Slight Abnormal (none) [facility] Lymphocytes (Bld) [#/Vol] 2.3 10*3/uL 1.0 - 4.3 10*3/uL [facility] Lymphocytes Manual 19 [facility] Lymphocytes/100 WBC (Bld) 19 % Low 20 - 40 % [facility] Monocytes (Bld) [#/Vol] 0.8 10*3/uL 0.0 - 0.8 10*3/uL [facility] Monocytes Manual 7 [facility] Monocytes/100 WBC (Bld) 7 % 2 - 10 % [facility] Myelocytes (Bld) [#/Vol] 0.1 10*3/uL High JANINE F - 0.0 10*3/uL [facility]el[facility] Myel[facility]/100 WBC (Bld) 1 % High NINF - 0 % [facility] Neutrophils (Bld) [#/Vol] 8.7 10*3/uL High 1.8 - 7.0 10*3/uL [facility] Neutrophils Manual 73 [facility] Neutrophils.vacuolated LM Ql (Bld) Present Abnormal (none) [facility] Ovalocytes LM Ql (Bld) Slight Abnormal (none) [facility] Platelet morphology finding Nom (Bld) Normal [facility] Segmented neutrophils/100 WBC (Bld) 73 % 40 - 80 % [facility] WBC corrected for nucl RBC (Bld) [#/Vol] 11.90 10*3/uL High 3.60 - 10.70 10*3/uL [facility] No Panel InformationOrdered By: Marcelo Morocho on 08-05-2022 Interpretation and review of laboratory results Abnormal [facility] RF Esophagus Views W barium contrast Vivian 08-05-2022 1. Presbyesophagus. 2. Very slow transit of ingested material with hold-up in the mid/distal esophagus. 3. No gastroesophageal mass lesion or obstruction identified. Report Dictated on Electronically Signed By: David Posada Electronically Signed Date/Time: 08/05/2022 11:17 AM [facility] Patient Name: YELENA CHANDRA : 1935 Exam Date/Time: 08/05/2022 10:48 Procedure: FL ESOPHAGUS BARIUM SWALLOW Ordering Provider: BARNES PRAMOD Reason For Exam: Dysphagia, retrosternal ESOPHAGRAM: INDICATION: Dysphagia. EXAMINATION: Esophagram was performed with ingestion of barium. COMPARISON: None. FLUOROSCOPY USED: 0.11 minutes, 0 cine run(s), and 44 fluoro spot(s) captured. 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 The mid/distal esophagus is somewhat patulous. No gastroesophageal mass or obstruction is identified. [facility] David Posada MD - 08/05/2022 Patient Name: YELENA CHANDRA : 1935 Exam Date/Time: 08/05/2022 10:48 Procedure: FL ESOPHAGUS BARIUM SWALLOW Ordering Provider: BARNES PRAMOD Reason For Exam: Dysphagia, retrosternal ESOPHAGRAM: INDICATION: Dysphagia. EXAMINATION: Esophagram was performed with ingestion of barium. COMPARISON: None. FLUOROSCOPY USED: 0.11 minutes, 0 cine run(s), and 44 fluoro spot(s) captured. 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 The mid/distal esophagus is somewhat patulous. No gastroesophageal mass or obstruction is identified. IMPRESSION: 1. Presbyesophagus. 2. Very slow transit of ingested material with hold-up in the mid/distal esophagus. 3. No gastroesophageal mass lesion or obstruction identified. Report Dictated on Electronically Signed By: David Posada Electronically Signed Date/Time: 08/05/2022 11:17 AM EDT [facility] Radiology Study observation (narrative) [facility] videography Hypopharynx a nd Esophagus Views for swallowing function W speech and W barium contrast Vivian 08-05-2022 1. Trace penetration . 2. No mely aspiration. Please refer to the speech pathologist's report for additional details and recommendations. Report Dictated on Electronically Signed By: David Posada Electronically Signed Date/Time: 08/05/2022 11:14 AM EDT [facility] Patient Name: YELENA CHANDRA : 1935 Exam Date/Time: 08/05/2022 10:47 Procedure: FL MODIFIED BARIUM WITH VIDEO AND SPEECH Ordering Provider: BARNES PRAMOD Reason For Exam: DYSPHAGIA CLINICAL INDICATION: Dysphagia. TECHNIQUE: Swallowing study was performed with fluoroscopic observation in association with the speech pathologist. The patient was observed to swallow barium mixtures of various consistencies along with solid material with the patient in the sitting, lateral position. Videotape monitoring of the fluoroscopic procedure was performed along with digital radiographs. FLUOROSCOPY USED: The exam was performed under fluoroscopy with video recording. 1 minutes, 8 seconds. FINDINGS: The oral phase is normal. Trace penetration was evident during the examination (particularly with thin liquid). Though predominantly silent, at one point this did induce a cough. 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 This does not result in any hold-up or stenosis. [facility] David Posada MD - 08/05/2022 [facility] Name: YE[facility] 1935 [id number] Exam Date/Time: 08/05/2022 10:47 Procedure: FL MODIFIED BARIUM WITH VIDEO AND SPEECH Ordering Provider: BARNES PRAMOD Reason For Exam: DYSPHAGIA CLINICAL INDICATION: Dysphagia. TECHNIQUE: Swallowing study was performed with fluoroscopic observation in association with the speech pathologist. The patient was observed to swallow barium mixtures of various consistencies along with solid material with the patient in the sitting, lateral position. Videotape monitoring of the fluoroscopic procedure was performed along with digital radiographs. FLUOROSCOPY USED: The exam was performed under fluoroscopy with video recording. 1 minutes, 8 seconds. FINDINGS: The oral phase is normal. Trace penetration was evident during the examination (particularly with thin liquid). Though predominantly silent, at one point this did induce a cough. 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 This does not result in any hold-up or stenosis. IMPRESSION: 1. Trace penetration. 2. No mely aspiration. Please refer to the speech pathologist's report for additional details and recommendations. Report Dictated on Electronically Signed By: David Posada Electronically Signed Date/Time: 08/05/2022 11:14 AM EDT [facility] [employer] Radiology Study observation (narrative) [facility] videography Hypopharynx a nd Esophagus Views for swallowing function W speech and W barium contrast POOrdered By: David Posada on 08-05-2022 [employer] Phone: CBC W Auto Differential pane l (Bld)Ordered By: Chuck Guerrero on 08-04-2022 Basophils (Bld) [#/Vol] 0.0 10*3/uL 0.0 - 0.2 10*3/uL [facility] Basophils/100 WBC (Bld) 0.2 % 0.0 - 2.0 % [facility] Eosinophils (Bld) [#/Vol] 0.0 10*3/uL 0.0 - 0.5 10*3/uL [facility] Eosinophils/100 WBC (Bld) 0.0 % Low 1.0 - 6.0 % [facility] Erythrocyte distribution width (RBC) [Ratio] 13.3 % 11.5 - 14.5 % [facility] Hematocrit (Bld) [Volume fraction] 35.5 % 35.0 - 47.0 % [facility] Hemoglobin (Bld) [Mass/Vol] 11.5 g/dL Low 11.7 - 16.0 g/dL [facility] Interpretation and review of laboratory results Abnormal [facility] Lymphocytes (Bld) [#/Vol] 1.7 10*3/uL 1.0 - 4.3 10*3/uL [facility] Lymphocytes/100 WBC (Bld) 14.0 % Low 20.0 - 40.0 % [facility] MCH (RBC) [Entitic mass] 27.4 pg 26. 0 - 34.0 pg [facility] MCHC (RBC) [Mass/Vol] 32.4 % 32.0 - 36.0 % [facility] MCV (RBC) [Entitic vol] 84.4 fL 80.0 - 98.0 fL [facility] Monocytes (Bld) [#/Vol] 1.2 10*3/uL High 0.0 - 0.8 10*3/uL [facility] Monocytes/100 WBC (Bld) 10.1 % High 2.0 - 10.0 % [facility] Neutrophils (Bld) [#/Vol] 9.1 10*3/uL High 1.8 - 7.0 10*3/uL [facility] Neutrophils/100 WBC (Bld) 75.7 % 40.0 - 80.0 % [facility] Nucleated RBC/100 WBC (Bld) [Ratio] 0.0 % [facility] Platelet mean volume (Bld) [Entitic vol] 8.9 fL 7.4 - 12.4 fL [facility] Platelets (Bld) [#/Vol] 357 10*3/uL 140 - 440 10*3/uL [facility] RBC (Bld) [#/Vol] 4.21 10*6/uL 3.8 - 5.20 10*6/uL [facility] WBC (Bld) [#/Vol] 12.0 10*3/uL High 3.6 - 10.7 10*3/uL [facility] Comprehensive metabolic 1998 panelon 08-04-2022 Albumin [Mass/Vol] 3.2 g/dL Low 3.5 - 5.0 g/dL [facility] ALP [Catalytic activity/Vol] 85 U/L 38 - 126 U/L [facility] ALT [Catalytic activity/Vol] 24 U/L 0 - 34 U/L [facility] Anion gap [Moles/Vol] 1 mmol/L Low 3 - 13 mmol/L [facility] AST [Catalytic activity/Vol] 37 U/L 15 - 46 U/L [facility] Bilirubin [Mass/Vol] 0.2 mg/dL 0.2 - 1 .3 mg/dL [facility] Calcium [Mass/Vol] 8.4 mg/dL 8.4 - 10. 4 mg/dL [facility] Chloride [Moles/Vol] 105 mmol/L 98 - 10 7 mmol/L [facility] CO2 [Moles/Vol] 30 mmol/L 22 - 30 mmol/L [facility] Creatinine [Mass/Vol] 1.09 mg/dL High 0.52 - 1.04 mg/dL [facility] GFR/1.73 sq M.predicted MDRD (S/P/Bld) [Vol rate/Area] 49.9 mL/min/{1.73_m2} Low - PINF [facility] th Comment on above: Calculation based on the Chronic Kidney Disease Epidemiology Collaboration (CKD-EPI) equation refit without adjustment for race Glucose [Mass/Vol] 155 mg/dL High 70 - 100 mg/dL [facility] Interpretation and review of laboratory results Abnormal [facility] Potassium [Moles/Vol] 4.0 mmol/L 3.5 - 5.1 mmol/L [facility] Protein [Mass/Vol] 6.4 g/dL 6.3 - 8.2 g/dL [facility] Sodium [Moles/Vol] 136 mmol/L 135 - 145 mmol/L [facility] Urea nitrogen [Mass/Vol] 35 mg/dL High 7 - 17 mg/dL [facility] [employer] No Panel InformationOrdered By: Peggy Carson on 08-04-2022 [place] 66 degrees [facility] [employer] Work Phone: DE Interval 168 ms [facility] [employer] Work Phone: QRS [place] 41 degrees [facility] [employer] Work Phone: QRSD Interval 120 ms [facility] [employer] Work Phone: QT Interval 456 ms [facility] [employer] Work Phone: QTC Interval 452 ms [facility] [employer] Work Phone: [place] -2 degrees [facility] [employer] Work Phone: [facility] [employer] Work Phone: No Panel Informationon 08-04 SINUS RHYTHM RBBB Compared to ECG 07/31/2022 16:55:55 Sinus tachycardia no longer present Electronically Signed On 08-04-2022 14:23:15 EDT by Peggy Carson CV Peggy Fowler MD - 08/04/2022 IMPRESSION: SINUS RHYTHM RBBB Compared to ECG 07/31/2022 16:55:55 Sinus tachycardia no longer present Electronically Signed On 08-04-2022 14:23:15 EDT by Peggy Carson [facility] Vital signsOrdered By: Peggy Carson on 08-04-2022 Heart rate 59 /min bpm [facility] [employer] Work Phone: Bacteria identified Aer cx N om (Lower resp)Ordered By: Torres Javed on 08-03-2022 Interpretation and review of laboratory results Normal [facility] Comprehensive metabolic 1998 panelon 08-03-2022 Albumin [Mass/Vol] 3.5 g/dL 3.5 - 5.0 g/dL [facility] ALP [Catalytic activity/Vol] 89 U/L 38 - 126 U/L [facility] ALT [Catalytic activity/Vol] 20 U/L 0 - 34 U/L [facility] Anion gap [Moles/Vol] 4 mmol/L 3 - 13 mmol/L [facility] AST [Catalytic activity/Vol] 34 U/L 15 - 46 U/L [facility] Bilirubin [Mass/Vol] 0.3 mg/dL 0.2 - 1 .3 mg/dL [facility] Calcium [Mass/Vol] 8.5 mg/dL 8.4 - 10. 4 mg/dL [facility] Chloride [Moles/Vol] 106 mmol/L 98 - 10 7 mmol/L [facility] CO2 [Moles/Vol] 28 mmol/L 22 - 30 mmol/L [facility] Creatinine [Mass/Vol] 1.13 mg/dL High 0.52 - 1.04 mg/dL [facility] GFR/1.73 sq M.predicted MDRD (S/P/Bld) [Vol rate/Area] 47.8 mL/min/{1.73_m2} Low - PINF [facility] Comment on above: Calculation based on the Chronic Kidney Disease Epidemiology Collaboration (CKD-EPI) equation refit without adjustment for race Glucose [Mass/Vol] 135 mg/dL High 70 - 100 mg/dL [facility] Interpretation and review of laboratory results Abnormal [facility] Potassium [Moles/Vol] 4.3 mmol/L 3.5 - 5.1 mmol/L [facility] Protein [Mass/Vol] 6.9 g/dL 6.3 - 8.2 g/dL [facility] Sodium [Moles/Vol] 138 mmol/L 135 - 145 mmol/L [facility] Urea nitrogen [Mass/Vol] 39 mg/dL High 7 - 17 mg/dL [facility] Laboratory - Microbiology an d Antimicrobial susceptibilityOrdered By: Torres Javed on 08-03-2022 Bacteria identified Aer cx Nom (Lower resp) Many respiratory anitra present. [facility] CBC W Auto Differential pane l (Bld)Ordered By: Maliha Barber on 08-02-2022 Basophils (Bld) [#/Vol] 0.0 10*3/uL 0.0 - 0.2 10*3/uL [facility] Basophils/100 WBC (Bld) 0.2 % 0.0 - 2.0 % [facility] Eosinophils (Bld) [#/Vol] 0.0 10*3/uL 0.0 - 0.5 10*3/uL [facility] Eosinophils/100 WBC (Bld) 0.1 % Low 1.0 - 6.0 % [facility] Erythrocyte distribution width (RBC) [Ratio] 13.4 % 11.5 - 14.5 % [facility] Hematocrit (Bld) [Volume fraction] 34.0 % Low 35.0 - 47.0 % [facility] Hemoglobin (Bld) [Mass/Vol] 11.0 g/dL Low 11.7 - 16.0 g/dL [facility] Interpretation and review of laboratory results Abnormal [facility] Lymphocytes (Bld) [#/Vol] 0.8 10*3/uL Low 1.0 - 4.3 10*3/uL [facility] Lymphocytes/100 WBC (Bld) 6.3 % Low 20.0 - 40.0 % [facility] MCH (RBC) [Entitic mass] 27.4 pg 26. 0 - 34.0 pg [facility] MCHC (RBC) [Mass/Vol] 32.2 % 32.0 - 36.0 % [facility] MCV (RBC) [Entitic vol] 85.3 fL 80.0 - 98.0 fL [facility] Monocytes (Bld) [#/Vol] 0.5 10*3/uL 0.0 - 0.8 10*3/uL [facility] Monocytes/100 WBC (Bld) 4.0 % 2.0 - 10.0 % [facility] Neutrophils (Bld) [#/Vol] 11.0 10*3/uL High 1.8 - 7.0 10*3/uL [facility] Neutrophils/100 WBC (Bld) 89.4 % High 40.0 - 80.0 % [facility] Nucleated RBC/100 WBC (Bld) [Ratio] 0.0 % [facility] Platelet mean volume (Bld) [Entitic vol] 9.2 fL 7.4 - 12.4 fL [facility] Platelets (Bld) [#/Vol] 262 10*3/uL 140 - 440 10*3/uL [facility] RBC (Bld) [#/Vol] 3.99 10*6/uL 3.8 - 5.20 10*6/uL [facility] WBC (Bld) [#/Vol] 12.3 10*3/uL High 3.6 - 10.7 10*3/uL [facility] Lipid 1996 panelon 3 Cholesterol [Mass/Vol] 186 mg/dL NINF - 200 mg/dL [facility] Cholesterol in HDL [Mass/Vol] 80 mg/dL High 40 - 60 mg/dL [facility] Cholesterol in LDL [Mass/Vol] 91 mg/dL 0 - <100 [facility] Cholesterol.total/Choles terol in HDL [Mass ratio] 2 {ratio} [facility] Comment on above: Ref Range: < 3 Low Risk for CHD 3-6 Mod Risk for CHD > 6 High Risk for CHD Interpretation and review of laboratory results Abnormal [facility] Triglyceride [Mass/Vol] 77 mg/dL NINF - 150 mg/dL [facility] No Panel Informationon 08-02 Extra Tube Hold for add-ons. [facility] Comment on above: Auto resulted. [facility] Comprehensive metabolic 1997 panelon 08-01-2022 Albumin [Mass/Vol] 3.3 g/dL Low 3.5 - 5.0 g/dL [facility] ALP [Catalytic activity/Vol] 85 U/L 38 - 126 U/L [facility] ALT [Catalytic activity/Vol] 14 U/L 0 - 34 U/L [facility] Anion gap [Moles/Vol] 5 mmol/L 3 - 13 mmol/L [facility] AST [Catalytic activity/Vol] 27 U/L 15 - 46 U/L [facility] Bilirubin [Mass/Vol] 0.5 mg/dL 0.2 - 1 .3 mg/dL [facility] Calcium [Mass/Vol] 8.6 mg/dL 8.4 - 10. 4 mg/dL [facility] Chloride [Moles/Vol] 103 mmol/L 98 - 10 7 mmol/L [facility] CO2 [Moles/Vol] 29 mmol/L 22 - 30 mmol/L [facility] Creatinine [Mass/Vol] 1.04 mg/dL 0.52 - 1.04 mg/dL [facility] GFR/1.73 sq M.predicted MDRD (S/P/Bld) [Vol rate/Area] 52.8 mL/min/{1.73_m2} Low - PINF [facility] Comment on above: Calculation based on the Chronic Kidney Disease Epidemiology Collaboration (CKD-EPI) equation refit without adjustment for race Glucose [Mass/Vol] 177 mg/dL High 70 - 100 mg/dL [facility] Interpretation and review of laboratory results Abnormal [facility] Potassium [Moles/Vol] 3.7 mmol/L 3.5 - 5.1 mmol/L [facility] Protein [Mass/Vol] 6.7 g/dL 6.3 - 8.2 g/dL [facility] Sodium [Moles/Vol] 137 mmol/L 135 - 145 mmol/L [facility] Urea nitrogen [Mass/Vol] 21 mg/dL High 7 - 17 mg/dL [facility] HbA1c (Bld) [Mass fraction]o n 08-01-2022 Glucose [Mass/Vol] 105 mg/dL [facility] HbA1c (Bld) [Mass/Vol] 5.3 % NINF - 5.7 % [facility] Comment on above: Normal less than 5.7 % Prediabetes 5.7% to 6.4% Diabetes 6.5% or higher --HgbA1C levels may not be accurate in patients who have renal disease, received recent blood transfusions, are anemic, or who have dyshemoglobinemia. [facility] Laboratory - Chemistry and C hemistry - challengeon 08-01-2022 Troponin I.cardiac [Mass/Vol] 0.031 ng/mL 0.000 - 0.034 ng/mL [facility] Procalcitonin [Mass/Vol] 0.13 ng/mL High 0.0 0 - 0.09 ng/mL [facility] Troponin I.cardiac [Mass/Vol] 0.047 ng/mL High 0.000 - 0.034 ng/mL [facility] Troponin I.cardiac [Mass/Vol] 0.060 ng/mL High 0.000 - 0.034 ng/mL [facility] MRSA DNA MELANY+probe Ql (Nose) on 08-01-2022 Interpretation and review of laboratory results Normal [facility] mecA gene Not detected Not Detected [facility] Staphylococcus aureus Not detected Not Detected [facility] No Staphylococcus aureus detected. Negative nasal MRSA PCR has a high negative predictive value for MRSA pneumonia. Consider stopping Vancomycin if no other clinical indication. Contact Antimicrobial Stewardship for further recommendations. Staphylococcus aureus nasal screen by real-time PCR. This test was modified and its performance characteristics determined by [facility]. The U. S. Food and Drug Administration has not approved or cleared this test; however, FDA clearance or approval is not currently required for clinical use. The results are not intended to be used as the sole means for clinical diagnosis or patient management decisions. [facility] No Panel InformationOrdered By: Rodney Kim on 08-01-2022 Interpretation and review of laboratory results Normal [facility] Legionella pneumophila Ag Not detected Not Detected [facility] Streptococcus pneumoniae Ag Not detected Not Detected [facility] Methodology: Lateral flow enzyme immunoassay This assay is approved for detection of antigens to Streptococcus pneumoniae and Legionella pneumophila serogroup 1; however, other L. pneumophila serogroups may also be detected. [facility] Procalcitonin [Mass/Vol]on 0 08-01-2022 Interpretation and review of laboratory results Abnormal [facility] PCT <0.50 = Low risk of severe sepsis and/or septic shock. PCT >2.00 = High risk of severe sepsis and/or septic shock. [facility] Respiratory pathogens DNA an d RNA panel MELANY+non-probe (Lower resp)on 08-01-2022 Acinetobacter baumannii complex Not detected Not Detected [facility] Adenovirus Not detected Not Detected [facility] Chlamydia pneumoniae Not detected Not Detected [facility] Enterobacter cloacae complex Not detected Not Detected [facility] Escherichia coli Not detected Not Detected [facility] FLUAV RNA MELANY+non-probe Ql (Lower resp) Not detected Not Detected [facility] FLUBV RNA MELANY+non-probe Ql (Lower resp) Not detected Not Detected [facility] Haemophilus influenzae Detected Abnormal Not Detected [facility] Human Metapneumovirus Not detected Not Detected [facility] Human Rhinovirus/Enterovirus Not detected Not Detected [facility] Interpretation and review of laboratory results Abnormal [facility] Klebsiella (Enterobacter) aerogenes Not detected Not Detected [facility] Klebsiella oxytoca Not detected Not Detected [facility] Klebsiella pneumoniae Not detected Not Detected [facility] Legionella pneumophila Not detected Not Detected [facility] Moraxella catarrhalis Not detected Not Detected [facility] Mycoplasma pneumoniae Not detected Not Detected [facility] Parainfluenza virus Not detected Not Detected [facility] Proteus spp Not detected Not Detected [facility] Pseudomonas aeruginosa Not detected Not Detected [facility] RSV RNA MELANY+probe Ql (Resp) Not detected Not Detected [facility] S. agalactiae Org specific cx Ql (Vag fld) Not detected Not Detected [facility] SARS-CoV-2 (COVID-19) RNA MELANY+probe Ql (Unsp spec) Not detected Not Detected [facility] SARS-CoV-2 (COVID-19) RNA MELANY+probe Ql (Unsp spec) Methodology: Multiplex PCR This panel does not test for SARS-CoV-2 (Covid-19). The following antimicrobial resistance gene is reported if the appropriate organism is detected: mecA. The following antimicrobial resistance genes are reported if detected and the appropriate organisms are detected: CTX-M, IMP, KPC, NDM, OXA-48-like, and VIM. [facility] Serratia marcescens Not detected Not Detected [facility] Staphylococcus aureus Not detected Not Detected [facility] Streptococcus pneumoniae Not detected Not Detected [facility] Streptococcus pyogenes Not detected Not Detected [facility] Respiratory pathogens DNA an d RNA panel MELANY+probe (Nph)on 08-01-2022 Adenovirus Not detected Not Detected [facility] B. pertussis DNA MELANY+probe Ql (Unsp spec) Not detected Not Detected [facility] Bordetella parapertussis Not detected Not Detected [facility] Chlamydia pneumoniae Not detected Not Detected [facility] Coronavirus 229E Not detected Not Detected [facility] Coronavirus HKU1 Not detected Not Detected [facility] Coronavirus NL63 Not detected Not Detected [facility] Coronavirus OC43 Not detected Not Detected [facility] FLUAV RNA MELANY+non-probe Ql (Nph) Not detected Not Detected [facility] FLUBV RNA MELANY+non-probe Ql (Nph) Not detected Not Detected [facility] Human Metapneumovirus Not detected Not Detected [facility] Human Rhinovirus/Enterovirus Not detected Not Detected [facility] Interpretation and review of laboratory results Normal [facility] Mycoplasma pneumoniae Not detected Not Detected [facility] Parainfluenza 1 Not detected Not Detected [facility] Parainfluenza 2 Not detected Not Detected [facility] Parainfluenza 3 Not detected Not Detected [facility] Parainfluenza 4 Not detected Not Detected [facility] Respiratory Syncytial Virus Not detected Not Detected [facility] SARS-CoV-2 (COVID-19) RNA MELANY+non-probe Ql (Nph) Not detected Not Detected [facility] Methodology: Multipl ex PCR [facility] Troponin I.cardiac [Mass/Vol ]on 03-09-2023 Interpretation and review of laboratory results Normal [facility] [employer] Patients with high levels of Biotin oral intake (ie >5 mg/day) may have falsely decreased Troponin levels. [facility] [employer] Interpretation and review of laboratory results Abnormal [facility] Patients with high levels of Biotin oral intake (ie >5 mg/day) may have falsely decreased [facility]onin levels. [facility] Interpretation and review of laboratory results Abnormal [facility] Patients with high levels of Biotin oral intake (ie >5 mg/day) may have falsely decreased Troponin levels. [facility] [employer] Heart TransthoracicOrdere d By: Vikram Victor on 08-01-2022 Ascending Aorta 2.8 cm [facility] Work Phone: Ascending Aorta Index 1.50 cm/m2 [facility] [employer] Work Phone: E/E' Lateral 19.17 [employer] Phone: E/E' Ratio (Averaged) 19.17 [facility] [employer] Work Phone: E/E' Septal 19.17 [facility] [employer] Work Phone: EF BP 68 % 55 - 100 % [employer] Phone: Fractional Shortening 2D 34 % 28 - 44 % [employer] Phone: IVSd 1.1 cm 0.6 - 0.9 cm [employer] Phone: LA Diameter 3.1 cm [employer] Work Phone: LA Size Index 1.66 cm/m2 [employer] Work Phone: LA Volume 2C 58 mL 22 - 52 mL [employer] Work Phone: LA Volume 4C 48 mL 22 - 52 mL [employer] Phone: LA Volume A/L 57 mL [employer] Work Phone: LA Volume Index 2C 31 mL/m2 16 - 34 mL/m2 [employer] Work Phone: LA Volume Index 4C 26 mL/m2 16 - 34 mL/m2 [employer] Phone: LA Volume Index A/L 30 mL/m2 16 - 34 mL/m2 [facility] Work Phone: LV E' Lateral Velocity 6 cm/s [facility] Work Phone: LV E' Septal Velocity 6 cm/s [facility] Work Phone: LV EDV A2C 94 mL [facility] Work Phone: LV EDV A4C 69 mL [facility] Work Phone: LV EDV BP 81 mL 56 - 104 mL [facility] Work Phone: LV EDV Index A2C 50 mL/m2 [facility] Work Phone: LV EDV Index A4C 37 mL/m2 [facility] Work Phone: LV EDV Index BP 43 mL/m2 [facility] Work Phone: LV Ejection Fraction A2C 72 % [facility] Work Phone: LV Ejection Fraction A4C 62 % [facility] Work Phone: LV ESV A2C 26 mL [facility] Work Phone: LV ESV A4C 26 mL [facility] Work Phone: LV ESV BP 26 mL 19 - 49 mL [facility] Work Phone: LV ESV Index A2C 14 mL/m2 [facility] Work Phone: LV ESV Index A4C 14 mL/m2 [facility] Work Phone: LV ESV Index BP 14 mL/m2 [facility] Work Phone: LV Mass 2D 117.3 g 67 - 162 g [facility] Work Phone: LV Mass 2D Index 62.7 g/m2 43 - 95 g/m2 [facility] Work Phone: LV RWT Ratio 0.47 [facility] Work Phone: LVIDd 3.8 cm 3.9 - 5.3 cm [facility] Work Phone: LVIDd Index 2.03 cm/m2 [facility] [employer] Work Phone: LVIDs 2.5 cm [facility] Work Phone: LVIDs Index 1.34 cm/m2 [facility] [employer] Work Phone: LVOT Area 2.8 cm2 [facility] [employer] Work Phone: LVOT Cardiac Output 6.5 liter/mi nut e [facility] [employer] Work Phone: LVOT Diameter 1.9 cm [facility] [employer] Work Phone: LVOT Mean Gradient 3 mmHg [facility] [employer] Work Phone: LVOT Peak Gradient 7 mmHg [facility] [employer] Work Phone: LVOT Peak Velocity 1.3 m/s [facility] [employer] Work Phone: [phone] LVOT Stroke Volume Index 39.4 mL/m2 [facility] [employer] Work Phone: LVOT SV 73.7 ml [facility] [employer] Work Phone: LVOT VTI 26.0 cm [facility] [employer] Work Phone: LVPWd 0.9 cm 0.6 - 0.9 cm [facility] [employer] Work Phone: MV A Velocity 1.42 m/s [facility] Work Phone: [phone] MV E Velocity 1.15 m/s [facility] Work Phone: [phone] MV E Wave Deceleration Time 210.1 ms [facility] [employer] Work Phone: MV E/A 0.81 [facility] [employer] Work Phone: RV Free Wall Peak S' 13 cm/s [facility] Work Phone: TAPSE 2.6 cm 1.7 cm [facility] [employer] Work Phone: TR Max Velocity 2.82 m/s [facility] Work Phone: TR Peak Gradient 32 mmHg [facility] Work Phone: [facility] Work Phone: US Heart Transthoracicon Left Ventricle: Left ventricle size is normal. Normal wall thickness. Normal left ventricular systolic function. EF by 2D [employer] Biplane is 68%. Normal wall motion. Diastolic dysfunction present with increased LAP with normal LVEF. Average E/e' ratio is 19.17. Right Ventricle: Right ventricle size is normal. Normal systolic function. Tricuspid Valve: RVSP 32 mmHg above RA pressure; RVSP therefore may be normal or mildly elevated. No significant valvular abnormalities. Left Ventricle Left ventricle size is normal. Normal wall thickness. Normal left ventricular systolic function. EF by 2D [employer] Biplane is 68%. Normal wall motion. Diastolic dysfunction present with increased LAP with normal LVEF. Average E/e' ratio is 19.17. Right Ventricle Right ventricle size is normal. Normal systolic function. Left Atrium Left atrium size is normal. Right Atrium Right atrium size is normal. IVC/SVC IVC was not well visualized. Mitral Valve Valve structure is normal. Trace regurgitation. No stenosis noted. Tricuspid Valve Valve structure is normal. Trace regurgitation. RVSP 32 mmHg above RA pressure; RVSP therefore may be normal or mildly elevated. Aortic Valve Trileaflet. No regurgitation. No stenosis. Pulmonic Valve The pulmonic valve visualization is suboptimal but appears to be functioning normally. Trace regurgitation. Ascending Aorta Normal sized aorta. Pericardium The pericardium is normal. No pericardial effusion. Septum No interatrial shunt visualized on color Doppler. Study Details Image quality: fair. Blood pressure: 144/79 mmHg. Technical qualifiers: Technically difficult study due to patient's body habitus and procedure performed with the patient in a supine position. No contrast was given. Echo Additional Conclusions No significant valvular abnormalities. CV CPACS Basic metabolic 1998 panelon 07-31-2022 Anion gap [Moles/Vol] 4 mmol/L 3 - 13 mmol/L [facility] [employer] Calcium [Mass/Vol] 8.8 mg/dL 8.4 - 10. 4 mg/dL [facility] Chloride [Moles/Vol] 102 mmol/L 98 - 10 7 mmol/L [facility] CO2 [Moles/Vol] 30 mmol/L 22 - 30 mmol/L [facility] Creatinine [Mass/Vol] 0.92 mg/dL 0.52 - 1.04 mg/dL [facility] GFR/1.73 sq M.predicted MDRD (S/P/Bld) [Vol rate/Area] 61.1 mL/min/{1.73_m2} - PINF [facility] Comment on above: Calculation based on the Chronic Kidney Disease Epidemiology Collaboration (CKD-EPI) equation refit without adjustment for race Glucose [Mass/Vol] 147 mg/dL High 70 - 100 mg/dL [facility] Interpretation and review of laboratory results Abnormal [facility] Potassium [Moles/Vol] 3.3 mmol/L Low 3.5 - 5.1 mmol/L [facility] Sodium [Moles/Vol] 137 mmol/L 135 - 145 mmol/L [facility] Urea nitrogen [Mass/Vol] 15 mg/dL 7 - 17 mg/dL [facility] CBC panel Auto (Bld)Ordered By: Seth Cunningham on 07-31-2022 Erythrocyte distribution width (RBC) [Ratio] 13.3 % 11.5 - 14.5 % [facility] Hematocrit (Bld) [Volume fraction] 36.8 % 35.0 - 47.0 % [facility] Hemoglobin (Bld) [Mass/Vol] 12.1 g/dL 11.7 - 16.0 g/dL [facility] Interpretation and review of laboratory results Abnormal [facility] MCH (RBC) [Entitic mass] 27.9 pg 26. 0 - 34.0 pg [facility] MCHC (RBC) [Mass/Vol] 32.9 % 32.0 - 36.0 % [facility] MCV (RBC) [Entitic vol] 84.6 fL 80.0 - 98.0 fL [facility] Platelet mean volume (Bld) [Entitic vol] 9.4 fL 7.4 - 12.4 fL [facility] Platelets (Bld) [#/Vol] 263 10*3/uL 140 - 440 10*3/uL [facility] RBC (Bld) [#/Vol] 4.35 10*6/uL 3.8 - 5.20 10*6/uL [facility] WBC (Bld) [#/Vol] 11.5 10*3/uL High 3.6 - 10.7 10*3/uL [facility] Laboratory - Chemistry and C hemistry - challengeon 07-31-2022 Magnesium [Mass/Vol] 1.4 mg/dL Low 1.6 - 2 .3 mg/dL [facility] Troponin I.cardiac [Mass/Vol] 0.068 ng/mL High 0.000 - 0.034 ng/mL [facility] Laboratory - Microbiology an d Antimicrobial susceptibilityon 07-31-2022 FLUAV RNA MELANY+probe Ql (Resp) Not detected Not Detected [facility] FLUBV RNA MELANY+probe Ql (Resp) Not detected Not Detected [facility] RSV RNA MELANY+probe Ql (Resp) Not detected Not Detected [facility] SARS-CoV-2 (COVID-19) RNA MELANY+probe Ql (Resp) Not detected Not Detected [facility] SARS-CoV-2 (COVID-19) RNA MELANY+probe Ql (Unsp spec) Methodology: real-time, RT-PCR The SARS-CoV-2, Flu A/B, and RSV Combo assay is intended for in vitro diagnostic use under the FDA Emergency Use Authorization (EUA). This test has not been FDA cleared or approved. In compliance with this authorization, please visit www.fda.gov/media/1424 35/download or www.fda.gov/media/1420 36/download to access the applicable information sheets. [facility] Magnesium [Mass/Vol]on 07-31 Interpretation and review of laboratory results Abnormal [facility] Natriuretic peptide B [Mass/ Vol]on 07-31-2022 Interpretation and review of laboratory results Abnormal [facility] Natriuretic peptide B (Bld) [Mass/Vol] 6597 pg/mL High 0 - 450 pg/mL [facility] No Panel Informationon 07-31 P [place] -15 degrees [facility] DE Interval 164 ms [facility] QRS [place] 60 degrees [facility] QRSD Interval 118 ms [facility] Interval 372 ms [facility] QTC Interval 497 ms [facility] T Wave [place] -7 degrees [facility] SINUS TACHYCARDIA INCOMPLETE RIGHT BUNDLE BRANCH BLOCK BORDERLINE INFERIOR Q WAVES Compared to ECG 06/17/2021 16:55:55 Atrial premature complex(es) no longer present no st elevation or depression, widened qrs with RBBB, t wave inversions in v1-v2, no stemi noted, relativelyunchanged from previous on 06.17.21 Electronically Signed On 07-31-2022 19:15:53 EST by Melva Hinojosa DO - 07/31/2022 IMPRESSION: SINUS TACHYCARDIA INCOMPLETE RIGHT BUNDLE BRANCH BLOCK BORDERLINE INFERIOR Q WAVES Compared to ECG 06/17/2021 16:55:55 Atrial premature complex(es) no longer present no st elevation or depression, widened qrs with RBBB, t wave inversions in v1-v2, no stemi noted, relativelyunchanged from previous on 06.17.21 Electronically Signed On 07-31-2022 19:15:53 EST by Melva Brenner [facility] SARS-CoV-2, Flu A/B, and RSV Comboon 07-31-2022 Interpretation and review of laboratory results Normal [facility] Troponin I.cardiac [Mass/Vol ]on 07-31-2022 Interpretation and review of laboratory results Abnormal [facility] Patients with high levels of Biotin oral intake (ie >5 mg/day) may have falsely decreased Troponin levels. [facility] Vital signson 07-31-2022 Heart rate 107 /min bpm [facility] XR Chest Single viewon 07-31 Coarsening of the interstitial lung markings is likely chronic. No focal consolidation is identified. Report Dictated on Electronically Signed By: Tushar Melendez Electronically Signed Date/Time: 07/31/2022 4:57 PM EST [facility] Patient Name: YELENA CHANDRA : 1935 Exam Date/Time: 07/31/2022 17:03 Procedure: XR CHEST 1 VIEW Ordering Provider: BRENNER MATTHEW Reason For Exam: Shortness of breath PORTABLE CHEST X-RAY CLINICAL INDICATION: Shortness of breath A portable frontal view of the chest was obtained. COMPARISON: 05/28/2017 FINDINGS: The cardiac silhouette is within normal limits. Coarsening of the interstitial lung markings is noted, likely chronic. No focal consolidation is seen within the lungs. There is no large pleural effusion or pneumothorax. There are degenerative changes of the thoracic spine. [facility] Tushar Melendez MD - 07/31/2022 Patient Name: YELENA CHANDRA : 1935 Exam Date/Time: 07/31/2022 17:03 Procedure: XR CHEST 1 VIEW Ordering Provider: BRENNER MATTHEW Reason For Exam: Shortness of breath PORTABLE CHEST X-RAY CLINICAL INDICATION: Shortness of breath A portable frontal view of the chest was obtained. COMPARISON: 05/28/2017 FINDINGS: The cardiac silhouette is within normal limits. Coarsening of the interstitial lung markings is noted, likely chronic. No focal consolidation is seen within the lungs. There is no large pleural effusion or pneumothorax. There are degenerative changes of the thoracic spine. IMPRESSION: Coarsening of the interstitial lung markings is likely chronic. No focal consolidation is identified. Report Dictated on Electronically Signed By: Tushar Melendez Electronically Signed Date/Time: 07/31/2022 4:57 PM EST [facility] Radiology Study observation (narrative) [facility] XR Chest Single viewOrdered By: Tushar Melendez on 07-31-2022 [employer] Work Phone: [facility] Cytologyon 01-14-2022 [facility] Cytology Patient Name YELENA CHANDRA Date of Procedure: 01/14/2022 Date Reported: 01/21/2022 Date Received: 01/15/2022 Date of / Sex 1935 (Age: 87) / F Race: WHITE Submitting Physician: MELVA HYMAN DO Other External # [id number] FINAL CYTOLOGICAL INTERPRETATION A. FINE NEEDLE ASPIRATION PAROTID - LEFT, CYTOLOGY AND CELL BLOCK: --CYTOLOGIC FEATURES CONSISTENT WITH LOW-GRADE NEOPLASM, FAVOR PLEOMORPHIC ADENOMA. 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 Analilia Rasheed and Portia Ritchie. Slide(s) initially screened by a Medical Language Specialist at [facility], [address] [address] Electronically Signed Out By VAHID VILLALOBOS MD By the signature on this report, the individual or group listed as making the Final Interpretation/Diagnos is certifies that they have reviewed this case. Slide(s) initially screened by a Medical Language Specialist at [facility] Diagnostic interpretation performed at [facility] [address] [place] [address] Clinical History LEFT PAROTID GLAND MASS Source of Specimen A: FINE NEEDLE ASPIRATION PAROTID - LEFT Specimen Submitted as: A: FINE NEEDLE ASPIRATION PAROTID - LEFT Pap non-cfo controller ThinPrep slide, CELL BLOCK, H AND E, Initial, H RQ2,Recut H AND E every 2nd level, H RQ2,Recut H AND E every 2nd level Gross Description A. FINE NEEDLE ASPIRATION PAROTID - LEFT: 30cc CLOUDY RED NEEDLE RINSE, WITH PARTICLES, IN CYTOLYT [facility] Department of Pathology [address] [place] [address] Normal [facility] Comment on above: Performed By: #### C #### [facility] Cytology [address] [facility] [address] Basic Metabolic Panelon 05-27 Calcium [Mass/Vol] 8.8 mg/dL Normal 8.4-10.4 [facility] Comment on above: Performed By: #### H EMDF, MG3, BMP3 #### [facility] [address] [place] [address] Glucose [Mass/Vol] 163 mg/dL High 70-100 [facility] Comment on above: Performed By: #### H EMDF, MG3, BMP3 #### [facility] [address] [place] [address] Anion gap [Moles/Vol] 4 mmol/L Normal 3-13 [facility] Comment on above: Performed By: #### H EMDF, MG3, BMP3 #### [facility] [address] [place] [address] CO2 [Moles/Vol] 26 mmol/L Normal 22-30 [facility] Comment on above: Performed By: #### H EMDF, MG3, BMP3 #### [facility] [address] [place] [address] Creatinine [Mass/Vol] 1.08 mg/dL Normal 0.52-1.25 [facility] Comment on above: Performed By: #### H EMDF, MG3, BMP3 #### [facility] [address] [place] [address] GFR/1.73 sq M.predicted among blacks MDRD (S/P/Bld) [Vol rate/Area] 54.4 mL/min/{1.73_m2} Abnormal >60 [facility] Comment on above: Performed By: #### H EMDF, MG3, BMP3 #### [facility] [address] [place] [address] GFR/1.73 sq M.predicted among non-blacks MDRD (S/P/Bld) [Vol rate/Area] 46.9 mL/min/{1.73_m2} Abnormal >60 [facility] Comment on above: Result Comment: KDIG O guidelines provide the following GFR categories: Stage GFR(ml/min/1.73 m2) Terms G1 >=90 Normal or high G2 60-89 Mildly decreased* G3a 45-59 Mildly to moderately decreased G3b 30-44 Moderately to severely decreased G4 15-29 Severely decreased G5 <15 Kidney failure *Relative to young adult level. In the absence of evidence of kidney damage, neither GFR category G1 nor G2 fulfill the criteria for CKD. The CKD-EPI equation is validated in individuals 18 years of age and older. Currently the best equation for estimating glomerular filtration rate (GFR) from serum creatinine in children is the Bedside Bai equation. It is less accurate in patients with extremes of muscle mass, restriction of dietary protein, ingestion of creatine, extra-renal metabolism of creatinine, or treatment with medications that affect renal tubular creatinine secretion. Performed By: #### H EMDF, MG3, BMP3 #### [facility] [address] [place] [address] Urea nitrogen [Mass/Vol] 40 mg/dL High 9-20 [facility] Comment on above: Performed By: #### H EMDF, MG3, BMP3 #### [facility] [address] [place] [address] Chloride [Moles/Vol] 105 mmol/L Normal 98-107 [facility] Comment on above: Performed By: #### H EMDF, MG3, BMP3 #### [facility] [address] [place] [address] Potassium [Moles/Vol] 4.3 mmol/L Normal 3.5-5.1 [facility] Comment on above: Performed By: #### H EMDF, MG3, BMP3 #### [facility] [address] [place] [address] Sodium [Moles/Vol] 135 mmol/L Normal 135-145 [facility] Comment on above: Performed By: #### H EMDF, MG3, BMP3 #### [facility] [address] [place] [address] Hemogram w/ Autodiffon 06-20 Abs Baso Cnt 0.0 10*3/uL Normal 0.0-0.[address] [facility] Comment on above: Performed By: #### H EMDF, MG3, BMP3 #### [facility] [address] [place] [address] Abs Neutrophile Cnt 12.8 10*3/uL High 1.8-7.0 [facility] Comment on above: Performed By: #### H EMDF, MG3, BMP3 #### [facility] [address] [place] [address] Basophils/100 WBC (Bld) 0.2 % Normal 0.0-2.0 [facility] Comment on above: Performed By: #### H EMDF, MG3, BMP3 #### [facility] [address] [place] [address] Eosinophils (Bld) [#/Vol] 0.0 10*3/uL Normal 0.0-0.5 [facility] Comment on above: Performed By: #### H EMDF, MG3, BMP3 #### [facility] [address] [place] [address] Eosinophils/100 WBC (Bld) 0.0 % Low 1.0-6.0 [facility] Comment on above: Performed By: #### H EMDF, MG3, BMP3 #### [facility] [address] [place] [address] Erythrocyte distribution width (RBC) [Ratio] 13.7 % Normal 11.5-14.5 [facility] Comment on above: Performed By: #### H EMDF, MG3, BMP3 #### [facility] [address] [place] [address] Granulocytes/100 WBC (Bld) 92.4 % High 40.0-80.0 [facility] Comment on above: Performed By: #### H EMDF, MG3, BMP3 #### [facility] [address] [place] [address] Hematocrit (Bld) [Volume fraction] 34.7 % Low 35.0-47.0 [facility] Comment on above: Performed By: #### H EMDF, MG3, BMP3 #### [facility] [address] [place] [address] Hemoglobin (Bld) [Mass/Vol] 11.4 g/dL Low 11.7-16.0 [facility] Comment on above: Performed By: #### H EMDF, MG3, BMP3 #### [facility] [address] [place] [address] Lymphocytes (Bld) [#/Vol] 0.7 10*3/uL Low 1.0-4.3 [facility] Comment on above: Performed By: #### H EMDF, MG3, BMP3 #### [facility] [address] [place] [address] Lymphocytes/100 WBC (Bld) 4.9 % Low 20.0-40.0 [facility] Comment on above: Performed By: #### H EMDF, MG3, BMP3 #### [facility] [address] [place] [address] MCH (RBC) [Entitic mass] 27.6 pg Normal 26.0-34.0 [facility] Comment on above: Performed By: #### H EMDF, MG3, BMP3 #### [facility] [address] [place] [address] MCHC 32.9 % Normal 32.0-36.0 [facility] Comment on above: Performed By: #### H EMDF, MG3, BMP3 #### [facility] [address] [place] [address] MCV (RBC) [Entitic vol] 83.8 fL Normal 79.0-98.0 [facility] Comment on above: Performed By: #### H EMDF, MG3, BMP3 #### [facility] [address] [place] [address] Monocytes (Bld) [#/Vol] 0.3 10*3/uL Normal 0.0-0.8 [facility] Comment on above: Performed By: #### H EMDF, MG3, BMP3 #### [facility] [address] [place] [address] Monocytes/100 WBC (Bld) 2.5 % Normal 2.0-10.0 [facility] Comment on above: Performed By: #### H EMDF, MG3, BMP3 #### [facility] [address] [place] [address] Platelet mean volume (Bld) [Entitic vol] 8.7 fL Normal 7.4-10.4 [facility] Comment on above: Performed By: #### H EMDF, MG3, BMP3 #### [facility] [address] [place] [address] Platelets (Bld) [#/Vol] 385 10*3/uL Normal 140-440 [facility] Comment on above: Performed By: #### H EMDF, MG3, BMP3 #### [facility] [address] [place] [address] RBC (Bld) [#/Vol] 4.14 10*6/uL Normal 3.80-5.20 [facility] Comment on above: Performed By: #### H EMDF, MG3, BMP3 #### [facility] [address] [place] [address] WBC (Bld) [#/Vol] 13.9 10*3/uL High 3.6-10.7 [facility] Comment on above: Performed By: #### H EMDF, MG3, BMP3 #### [facility] [address] [place] [address] Magnesiumon 06-20-2021 Magnesium [Mass/Vol] 2.1 mg/dL Normal 1.6-2.3 [facility] Comment on above: Performed By: #### H EMDF, MG3, BMP3 #### [facility] [address] [place] [address] SARS-CoV-2 Antigenon 022 SARS-CoV-2 Antigen Negative Normal Negative [facility] Comment on above: Result Comment: A negative result does not rule out the possibility of SARS-CoV-2 infection. NAAT-based methods should be considered for symptomatic patients presenting greater than seven days after onset of symptoms. Method: Lateral flow immunoassay. Fact sheets for healthcare providers and patients can be found at the following sites: https://www.fda.gov/media/852662/download https://www.fda.gov/media/370464/download Performed By: #### C OVAG #### [facility] [address] [place] [address] Basic Metabolic Panelon 05-27 Calcium [Mass/Vol] 8.8 mg/dL Normal 8.4-10.4 [facility] Comment on above: Performed By: #### H EMDF, BMP3, VD25H, B12, FOLT3 ####[facility] [place] [address] Glucose [Mass/Vol] 187 mg/dL High 70-100 [facility] Comment on above: Performed By: #### H EMDF, BMP3, VD25H, B12, FOLT3 ####[facility] [employer] [id number] [place] [address] Urea nitrogen [Mass/Vol] 32 mg/dL High 9-20 [facility] Comment on above: Performed By: #### H EMDF, BMP3, VD25H, B12, FOLT3 ####[facility] [place] [address] Anion gap [Moles/Vol] 6 mmol/L Normal 3-13 [facility] Comment on above: Performed By: #### H EMDF, BMP3, VD25H, B12, FOLT3 ####[facility] [employer] [id number] [place] [address] CO2 [Moles/Vol] 27 mmol/L Normal 22-30 [facility] Comment on above: Performed By: #### H EMDF, BMP3, VD25H, B12, FOLT3 ####[facility] [employer] [id number] [place] [address] Creatinine [Mass/Vol] 1.06 mg/dL Normal 0.52-1.25 [facility] Comment on above: Performed By: #### H EMDF, BMP3, VD25H, B12, FOLT3 ####[employer] [id number] [place] [address] GFR/1.73 sq M.predicted among blacks MDRD (S/P/Bld) [Vol rate/Area] 55.7 mL/min/{1.73_m2} Abnormal >60 [facility] Comment on above: Performed By: #### H EMDF, BMP3, VD25H, B12, FOLT3 ####[employer] [place] [address] [place] [address] GFR/1.73 sq M.predicted among non-blacks MDRD (S/P/Bld) [Vol rate/Area] 48.0 mL/min/{1.73_m2} Abnormal >60 [facility] Comment on above: Result Comment: KDIG O guidelines provide the following GFR categories: Stage GFR(ml/min/1.73 m2) Terms G1 >=90 Normal or high G2 60-89 Mildly decreased* G3a 45-59 Mildly to moderately decreased G3b 30-44 Moderately to severely decreased G4 15-29 Severely decreased G5 <15 Kidney failure *Relative to young adult level. In the absence of evidence of kidney damage, neither GFR category G1 nor G2 fulfill the criteria for CKD. The CKD-EPI equation is validated in individuals 18 years of age and older. Currently the best equation for estimating glomerular filtration rate (GFR) from serum creatinine in children is the Bedside Bai equation. It is less accurate in patients with extremes of muscle mass, restriction of dietary protein, ingestion of creatine, extra-renal metabolism of creatinine, or treatment with medications that affect renal tubular creatinine secretion. Performed By: #### H EMDF, BMP3, VD25H, B12, FOLT3 ####[employer] [address] [place] [address] Potassium [Moles/Vol] 4.2 mmol/L Normal 3.5-5.1 [facility] Comment on above: Performed By: #### H EMDF, BMP3, VD25H, B12, FOLT3 ####[employer] [address] [place] [address] Chloride [Moles/Vol] 102 mmol/L Normal 98-107 [facility] Comment on above: Performed By: #### H EMDF, BMP3, VD25H, B12, FOLT3 ####[facility] [place] [address] Sodium [Moles/Vol] 135 mmol/L Normal 135-145 [facility] Comment on above: Performed By: #### H EMDF, BMP3, VD25H, B12, FOLT3 ####[facility] [facility] [place] [address] CTA Chest w/ + w/o Contrasto n 06-19-2021 CTA Chest w/ + w/o Contrast Patient Name: YELENA CHANDRA Computed Tomography ACCESSION EXAM DATE/TIME PROCEDURE ORDERING PROVIDER [id number] 06/18/2021 23:26 EST CTA Chest w/ + w/o DO PISANO GEORGE E Contrast CPT code 07553 [id number] Reason For Exam (CTA Chest w/ + w/o Contrast) elevated D-dimer, tachycardia, rule out PE Report CTA CHEST WITH IV CONTRAST CLINICAL INDICATION: elevated D-dimer, tachycardia, rule out PE. TECHNIQUE: CTA of the chest with IV contrast. Multiplanar reformations. 3-D image post-processing was performed on an independent workstation. COMPARISON: None. FINDINGS: The main and bilateral proximal pulmonary arteries are normally opacified without apparent filling defects. Cardiac size within normal limits. Coronary artery calcifications. Thoracic aorta suboptimally opacified without apparent aneurysm or pseudoaneurysm. Diffuse, lobular and heterogeneous thyromegaly extending caudally in substernal and right paratracheal regions, with hypodensities measuring up to 2 cm and dystrophic calcifications. No significant lymph node enlargement or axillary adenopathy. Lungs show mild and patchy, reticular opacities scattered in the bilateral lower lungs probably atelectatic versus scarring. No discrete mass, focal consolidation or pleural effusion. No apparent pneumothorax. Punctate calcification in left kidney without significant hydronephrosis. Right kidney not visualized and scan plane. Remainder of visualized upper abdomen grossly unremarkable. Degenerative change in the thoracic spine and bilateral shoulders. IMPRESSION: 1. No evidence of large vessel or central pulmonary emboli. 2. 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 Follow-up suggested. [employer] (ACR) guidelines recommend thyroid ultrasound for Computed Tomography Report incidentally detected thyroid lesions on CT or MRI as follows: 1.5 cm or greater in patients 35 years and older; and lesions measuring 1.0 cm or greater in patients under 35 years of age. 3. Probable atelectasis versus scarring scattered in the bilateral lower lungs. No acute consolidation. Report Dictated on Workstation: [email or web address] Final Dictating Physician: MD GUNN WENDELL Signed Date and Time: 06/18/2021 11:38 pm Signed by: MD GUNN WENDELL Transcribed Date and Time: 06/18/2021 11:39 Normal [facility] CULTURE URINEon 06-19-2021 CULTURE URINE CULTURE URINE --> Status: F Normal urogenital anitra present. Normal [facility] Comment on above: Performed By: #### C UA2 ####[address] [place] [address]#### C/UR ####[facility] [place] [address] Folateon 06-19-2021 Folate 18.9 ng/mL Normal [facility] Comment on above: Result Comment: >2.8 Performed By: #### H EMDF, BMP3, VD25H, B12, FOLT3 ####[facility] [place] [address] Hemogram w/ Autodiffon 06-19 Abs Baso Cnt 0.0 10*3/uL Normal 0.0-0.[address] [facility] Comment on above: Performed By: #### H EMDF, BMP3, VD25H, B12, FOLT3 ####[facility] [place] [id number] Abs Neutrophile Cnt 10.9 10*3/uL High 1.8-7.0 [facility] Comment on above: Performed By: #### H EMDF, BMP3, VD25H, B12, FOLT3 ####[facility] [place] [address] Basophils/100 WBC (Bld) 0.1 % Normal 0.0-2.0 [facility] Comment on above: Performed By: #### H EMDF, BMP3, VD25H, B12, FOLT3 ####[place] [address] [place] [address] Eosinophils (Bld) [#/Vol] 0.0 10*3/uL Normal 0.0-0.5 [facility] Comment on above: Performed By: #### H EMDF, BMP3, VD25H, B12, FOLT3 ####[place] [address] [place] [address] Eosinophils/100 WBC (Bld) 0.0 % Low 1.0-6.0 [facility] Comment on above: Performed By: #### H EMDF, BMP3, VD25H, B12, FOLT3 ####[place] [address] [place] [address] Erythrocyte distribution width (RBC) [Ratio] 13.6 % Normal 11.5-14.5 [facility] Comment on above: Performed By: #### H EMDF, BMP3, VD25H, B12, FOLT3 ####[place] [address] [place] [address] Granulocytes/100 WBC (Bld) 91.9 % High 40.0-80.0 [facility] Comment on above: Performed By: #### H EMDF, BMP3, VD25H, B12, FOLT3 ####[place] [address] [place] [address] Hematocrit (Bld) [Volume fraction] 33.6 % Low 35.0-47.0 [facility] Comment on above: Performed By: #### H EMDF, BMP3, VD25H, B12, FOLT3 ####[place] [address] [place] [address] Hemoglobin (Bld) [Mass/Vol] 11.2 g/dL Low 11.7-16.0 [facility] Comment on above: Performed By: #### H EMDF, BMP3, VD25H, B12, FOLT3 ####[place] [address] [place] [address] Lymphocytes (Bld) [#/Vol] 0.6 10*3/uL Low 1.0-4.3 [facility] Comment on above: Performed By: #### H EMDF, BMP3, VD25H, B12, FOLT3 ####[place] [address] [place] [address] Lymphocytes/100 WBC (Bld) 5.4 % Low 20.0-40.0 [facility] Comment on above: Performed By: #### H EMDF, BMP3, VD25H, B12, FOLT3 ####[place] [address] [place] [address] MCH (RBC) [Entitic mass] 28.0 pg Normal 26.0-34.0 [facility] Comment on above: Performed By: #### H EMDF, BMP3, VD25H, B12, FOLT3 ####[address] [place] [address] MCHC 33.5 % Normal 32.0-36.0 [facility] Comment on above: Performed By: #### H EMDF, BMP3, VD25H, B12, FOLT3 ####[address] [place] [address] MCV (RBC) [Entitic vol] 83.7 fL Normal 79.0-98.0 [facility] Comment on above: Performed By: #### H EMDF, BMP3, VD25H, B12, FOLT3 ####[address] [place] [address] Monocytes (Bld) [#/Vol] 0.3 10*3/uL Normal 0.0-0.8 [facility] Comment on above: Performed By: #### H EMDF, BMP3, VD25H, B12, FOLT3 ####[address] [place] [address] Monocytes/100 WBC (Bld) 2.6 % Normal 2.0-10.0 [facility] Comment on above: Performed By: #### H EMDF, BMP3, VD25H, B12, FOLT3 ####[address] [place] [address] Platelet mean volume (Bld) [Entitic vol] 8.4 fL Normal 7.4-10.4 [facility] Comment on above: Performed By: #### H EMDF, BMP3, VD25H, B12, FOLT3 ####[place] [address] [place] [address] Platelets (Bld) [#/Vol] 355 10*3/uL Normal 140-440 [facility] Comment on above: Performed By: #### H EMDF, BMP3, VD25H, B12, FOLT3 ####[place] [address] [place] [address] RBC (Bld) [#/Vol] 4.01 10*6/uL Normal 3.80-5.20 [facility] Comment on above: Performed By: #### H EMDF, BMP3, VD25H, B12, FOLT3 ####[address] [place] [address] WBC (Bld) [#/Vol] 11.9 10*3/uL High 3.6-10.7 [facility] Comment on above: Performed By: #### H EMDF, BMP3, VD25H, B12, FOLT3 ####[place] [address] [place] [address] Vit D 25-OH, Totalon 022 Vit D 25-OH, Total 27 ng/mL Low 30-100 [facility] Comment on above: Result Comment: Ther apy is based on measurement of Total 25-OHD with the following classification levels: Less than 20 ng/mL: Indicative of Vit D deficiency 20-30 ng/mL: Suggests Vit D insufficiency Optimal: Greater than or equal to 30 ng/mL Test performed by [employer] Competitive Immunoassay, measuring Total Vitamin D, not individual fractions. Performed By: #### H EMDF, BMP3, VD25H, B12, FOLT3 ####[place] [address] [place] [address] Vitamin B12on 06-19-2021 Cobalamin (Vitamin B12) [Mass/Vol] 959 pg/mL High 239-931 [facility] Comment on above: Performed By: #### H EMDF, BMP3, VD25H, B12, FOLT3 ####[facility] [employer] [id number] [place] [address] Basic Metabolic Panelon 05-27 Anion gap [Moles/Vol] 5 mmol/L Normal 3-13 [facility] Comment on above: Performed By: #### B MP3M, HEMDF, MG3 ####[facility] [employer] [id number] [place] [address] Calcium [Mass/Vol] 8.6 mg/dL Normal 8.4-10.4 [facility] Comment on above: Performed By: #### B MP3M, HEMDF, MG3 ####[facility] [employer] [id number] [place] [address] CO2 [Moles/Vol] 26 mmol/L Normal 22-30 [facility] Comment on above: Performed By: #### B MP3M, HEMDF, MG3 ####[facility] [employer] [place] [address] [place] [address] Glucose [Mass/Vol] 130 mg/dL High 70-100 [facility] Comment on above: Performed By: #### B MP3M, HEMDF, MG3 ####[facility] [employer] [id number] [place] [address] Urea nitrogen [Mass/Vol] 18 mg/dL Normal 9-20 [facility] Comment on above: Performed By: #### B MP3M, HEMDF, MG3 ####[facility] [employer] [id number] [place] [address] Creatinine [Mass/Vol] 1.03 mg/dL Normal 0.52-1.25 [facility] Comment on above: Performed By: #### B MP3M, HEMDF, MG3 ####[employer] [id number] [place] [address] GFR/1.73 sq M.predicted among blacks MDRD (S/P/Bld) [Vol rate/Area] 57.6 mL/min/{1.73_m2} Abnormal >60 [facility] Comment on above: Performed By: #### B MP3M, HEMDF, MG3 ####[place] [address] [place] [address] GFR/1.73 sq M.predicted among non-blacks MDRD (S/P/Bld) [Vol rate/Area] 49.7 mL/min/{1.73_m2} Abnormal >60 [facility] Comment on above: Result Comment: KDIG O guidelines provide the following GFR categories: Stage GFR(ml/min/1.73 m2) Terms G1 >=90 Normal or high G2 60-89 Mildly decreased* G3a 45-59 Mildly to moderately decreased G3b 30-44 Moderately to severely decreased G4 15-29 Severely decreased G5 <15 Kidney failure *Relative to young adult level. In the absence of evidence of kidney damage, neither GFR category G1 nor G2 fulfill the criteria for CKD. The CKD-EPI equation is validated in individuals 18 years of age and older. Currently the best equation for estimating glomerular filtration rate (GFR) from serum creatinine in children is the Bedside Bai equation. It is less accurate in patients with extremes of muscle mass, restriction of dietary protein, ingestion of creatine, extra-renal metabolism of creatinine, or treatment with medications that affect renal tubular creatinine secretion. Performed By: #### B MP3M, HEMDF, MG3 ####[address] [place] [address] Chloride [Moles/Vol] 104 mmol/L Normal 98-107 [facility] Comment on above: Performed By: #### B MP3M, HEMDF, MG3 ####[address] [place] [address] Potassium [Moles/Vol] 3.5 mmol/L Normal 3.5-5.1 [facility] Comment on above: Performed By: #### B MP3M, HEMDF, MG3 ####[address] [place] [address] Sodium [Moles/Vol] 135 mmol/L Normal 135-145 [facility] Comment on above: Performed By: #### B MP3M, HEMDF, MG3 ####[address] [place] [address] D-Dimer, Innovanceon -24-2 022 D-Dimer, Innovance 1.61 mg/L High <0.19-0.50 [facility] Comment on above: Result Comment: Inno bernal D-Dimer values of <0.50 mg/L FEU can be used in combination with a pre-test probability model (e.g. Well's) to exclude pulmonary embolism (PE) disease, as well as an aid in the diagnosis of deep vein thrombosis (DVT). Performed By: #### D DI2 #### [place] [address] [place] [address] Hemogram w/ Autodiffon 06-18 Abs Baso Cnt 0.0 10*3/uL Normal 0.0-0.[address] [facility] Comment on above: Performed By: #### B MP3M, HEMDF, MG3 ####[place] [address] [place] [address] Abs Neutrophile Cnt 6.9 10*3/uL Normal 1.8-7.0 [facility] Comment on above: Performed By: #### B MP3M, HEMDF, MG3 ####[address] [place] [address] Basophils/100 WBC (Bld) 0.5 % Normal 0.0-2.0 [facility] Comment on above: Performed By: #### B MP3M, HEMDF, MG3 ####[address] [place] [address] Eosinophils (Bld) [#/Vol] 0.1 10*3/uL Normal 0.0-0.5 [facility] Comment on above: Performed By: #### B MP3M, HEMDF, MG3 ####[address] [place] [address] Eosinophils/100 WBC (Bld) 0.6 % Low 1.0-6.0 [facility] Comment on above: Performed By: #### B MP3M, HEMDF, MG3 ####[address] [place] [address] Erythrocyte distribution width (RBC) [Ratio] 13.7 % Normal 11.5-14.5 [facility] Comment on above: Performed By: #### B MP3M, HEMDF, MG3 ####[place] [address] [place] [address] Granulocytes/100 WBC (Bld) 71.5 % Normal 40.0-80.0 [facility] Comment on above: Performed By: #### B MP3M, HEMDF, MG3 ####[place] [address] [place] [address] Hematocrit (Bld) [Volume fraction] 32.1 % Low 35.0-47.0 [facility] Comment on above: Performed By: #### B MP3M, HEMDF, MG3 ####[place] [address] [place] [address] Hemoglobin (Bld) [Mass/Vol] 10.5 g/dL Low 11.7-16.0 [facility] Comment on above: Performed By: #### B MP3M, HEMDF, MG3 ####[place] [address] [place] [address] Lymphocytes (Bld) [#/Vol] 1.7 10*3/uL Normal 1.0-4.3 [facility] Comment on above: Performed By: #### B MP3M, HEMDF, MG3 ####[place] [address] [place] [address] Lymphocytes/100 WBC (Bld) 17.5 % Low 20.0-40.0 [facility] Comment on above: Performed By: #### B MP3M, HEMDF, MG3 ####[place] [address] [place] [address] MCH (RBC) [Entitic mass] 27.5 pg Normal 26.0-34.0 [facility] [facility] Comment on above: Performed By: #### B MP3M, HEMDF, MG3 ####[place] [address] [place] [address] MCHC 32.7 % Normal 32.0-36.0 [facility] Comment on above: Performed By: #### B MP3M, HEMDF, MG3 ####[place] [address] [place] [address] MCV (RBC) [Entitic vol] 84.0 fL Normal 79.0-98.0 [facility] Comment on above: Performed By: #### B MP3M, HEMDF, MG3 ####[place] [address] [place] [address] Monocytes (Bld) [#/Vol] 1.0 10*3/uL High 0.0-0.8 [facility] Comment on above: Performed By: #### B MP3M, HEMDF, MG3 ####[place] [address] [place] [address] Monocytes/100 WBC (Bld) 9.9 % Normal 2.0-10.0 [facility] Comment on above: Performed By: #### B MP3M, HEMDF, MG3 ####[address] [place] [address] Platelet mean volume (Bld) [Entitic vol] 8.0 fL Normal 7.4-10.4 [facility] Comment on above: Performed By: #### B MP3M, HEMDF, MG3 ####[address] [place] [address] Platelets (Bld) [#/Vol] 351 10*3/uL Normal 140-440 [facility] Comment on above: Performed By: #### B MP3M, HEMDF, MG3 ####[address] [place] [address] RBC (Bld) [#/Vol] 3.83 10*6/uL Normal 3.80-5.20 [facility] Comment on above: Performed By: #### B MP3M, HEMDF, MG3 ####[address] [place] [address] WBC (Bld) [#/Vol] 9.7 10*3/uL Normal 3.6-10.7 [facility] Comment on above: Performed By: #### B MP3M, HEMDF, MG3 ####[address] [place] [address] Magnesiumon 06-18-2021 Magnesium [Mass/Vol] 1.5 mg/dL Low 1.6-2.3 [facility] Comment on above: Performed By: #### B MP3M, HEMDF, MG3 ####[facility] [place] [address] Thyroid Stim. Hormoneon 05-27 Thyroid Stim. Hormone 0.882 u[IU]/mL Normal 0.465-4.68 0 [facility] Comment on above: Performed By: #### T SH5 #### [facility] [address] [place] [address] Basic Metabolic Panelon 05-27 Calcium [Mass/Vol] 9.6 mg/dL Normal 8.4-10.4 [facility] Comment on above: Performed By: #### B MP3, HEMOG #### [facility] [address] [place] [address] Glucose [Mass/Vol] 115 mg/dL High 70-100 [facility] Comment on above: Performed By: #### B MP3, HEMOG #### [facility] [address] [place] [address] Urea nitrogen [Mass/Vol] 20 mg/dL Normal 9-20 [facility] Comment on above: Performed By: #### B MP3, HEMOG #### [facility] [address] [place] [address] Anion gap [Moles/Vol] 8 mmol/L Normal 3-13 [facility] Comment on above: Performed By: #### B MP3, HEMOG #### [facility] [address] [place] [address] CO2 [Moles/Vol] 28 mmol/L Normal 22-30 [facility] Comment on above: Performed By: #### B MP3, HEMOG #### [facility] [address] [place] [address] Creatinine [Mass/Vol] 0.92 mg/dL Normal 0.52-1.25 [facility] Comment on above: Performed By: #### B MP3, HEMOG #### [facility] [address] [place] [address] GFR/1.73 sq M.predicted among blacks MDRD (S/P/Bld) [Vol rate/Area] 66.1 mL/min/{1.73_m2} Normal >60 [facility] Comment on above: Performed By: #### Dami MP3, HEMOG #### [facility] [address] [place] [address] GFR/1.73 sq M.predicted among non-blacks MDRD (S/P/Bld) [Vol rate/Area] 57.0 mL/min/{1.73_m2} Abnormal >60 [facility] Comment on above: Result Comment: KDIG O guidelines provide the following GFR categories: Stage GFR(ml/min/1.73 m2) Terms G1 >=90 Normal or high G2 60-89 Mildly decreased* G3a 45-59 Mildly to moderately decreased G3b 30-44 Moderately to severely decreased G4 15-29 Severely decreased G5 <15 Kidney failure *Relative to young adult level. In the absence of evidence of kidney damage, neither GFR category G1 nor G2 fulfill the criteria for CKD. The CKD-EPI equation is validated in individuals 18 years of age and older. Currently the best equation for estimating glomerular filtration rate (GFR) from serum creatinine in children is the Bedside Bai equation. It is less accurate in patients with extremes of muscle mass, restriction of dietary protein, ingestion of creatine, extra-renal metabolism of creatinine, or treatment with medications that affect renal tubular creatinine secretion. Performed By: #### Dami MP3, HEMOG #### [facility] [address] [place] [address] Potassium [Moles/Vol] 3.5 mmol/L Normal 3.5-5.1 [facility] Comment on above: Performed By: #### Dami HILL3, HEMOG #### [facility] [address] [place] [address] Chloride [Moles/Vol] 101 mmol/L Normal 98-107 [facility] Comment on above: Performed By: #### B MP3, HEMOG #### [facility] [address] [place] [address] Sodium [Moles/Vol] 137 mmol/L Normal 135-145 [facility] Comment on above: Performed By: #### B MP3, HEMOG #### [facility] [address] [place] [address] CR Knee 3 Views Bilateralon 06-17-2021 CR Knee 3 Views Bilateral Patient Name: YELENA CHANDRA [facility]#: [id number] Diagnostic Radiology ACCESSION EXAM DATE/TIME PROCEDURE ORDERING PROVIDER [id number] 06/17/2021 14:52 EST CR Knee 3 Views [id number] -CARRIE BARON Bilateral CPT code 66406 Reason For Exam (CR Knee 3 Views Bilateral) bilateral knee pain Report Clinical indication: Bilateral knee pain. No known injury. History of osteoporosis. COMPARISON: None. TECHNIQUE: AP, tunnel, and lateral views were obtained of both knees. FINDINGS: Six views of the knees shows no acute fracture or dislocation. There is severe degenerative narrowing involving the medial compartment of both knees. The alignment is anatomic. There is a small suprapatellar effusions on the left. The soft tissues are otherwise normal. IMPRESSION: No acute osseous abnormality of either knee. 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 Small left suprapatellar effusion. Report Dictated on Final Dictating Physician: MD MEGAN, ANDRE GTZ Signed Date and Time: 06/17/2021 3:06 pm Signed by: MD GUZMAN YUN ROBERT Transcribed Date and Time: 06/17/2021 3:07 Normal [facility] Complete Urinalysison 2021 Appearance (U) Turbid Abnormal Clear [facility] Comment on above: Result Comment: . Performed By: #### C UA2 ####[facility] [place] [address]#### C/UR ####[place] [address] [place] [address] Bacteria Few Abnormal Negative [facility] Comment on above: Result Comment: . Performed By: #### C UA2 ####[facility] [id number] [place] [address]#### C/UR ####[address] [place] [address] Bilirubin,Urine Negative Normal Negative [facility] Comment on above: Result Comment: . Performed By: #### C UA2 ####[place] [id number]#### C/UR ####[facility] [id number] [facility], [place] Color (U) Yellow Normal Lt. Yellow [facility] Comment on above: Result Comment: . Performed By: #### C UA2 ####[facility] [address] [place] [address]#### C/UR ####[facility] [id number] [facility] [place] Glucose Ql (U) Normal Normal Normal (<70) [facility] Comment on above: Result Comment: . Performed By: #### C UA2 ####[facility] [address] [place] [address]#### C/UR ####[facility] [id number] [facility] [place] Ketone,Urine 10 mg/dL Abnormal Negative [facility] Comment on above: Result Comment: . Performed By: #### C UA2 ####[facility] [address] [facility] [address]#### C/UR ####[facility] [id number] [facility] [place] Leukocytes,Urine 500 Dieter/uL Abnormal Negative [facility] Comment on above: Result Comment: . Performed By: #### C UA2 ####[facility] [address] [place] [address]#### C/UR ####[facility] [id number] [facility] [place] Mucous Threads Few Normal Negative [facility] Comment on above: Result Comment: . Performed By: #### C UA2 ####[employer] [address] [place] [address]#### C/UR ####[facility] [id number] [facility] [place] Nitrites,Urine Negative Normal Negative [facility] Comment on above: Result Comment: . Performed By: #### C UA2 ####[employer] [address] [place] [address]#### C/UR ####[place] [address] [place], [place] Occult Blood,Urine 0.06 mg/dL Abnormal Negative [facility] Comment on above: Result Comment: . Performed By: #### C UA2 ####[address] [place] [address]#### C/UR ####[place] [address] [place], [place] pH,Urine 5.5 Normal 5.0-8.0 [facility] Comment on above: Result Comment: . Performed By: #### C UA2 ####[address] [place] [address]#### C/UR ####[place] [place], [place] Protein (U) [Mass/Vol] 50 mg/dL Abnormal Negative [facility] Comment on above: Result Comment: . Performed By: #### C UA2 ####[address] [place] [address]#### C/UR ####[address] [place], [place] RBC, Urine 3 - 5 Abnormal 0-2 [facility] Comment on above: Result Comment: . Performed By: #### C UA2 ####[address] [place] [address]#### C/UR ####[place] [place], [place] Specific [place],Urine 1.020 Normal 1.005 - 1.030 [facility] Comment on above: Result Comment: . Performed By: #### C UA2 ####[address] [place] [address]#### C/UR ####[place] [place], [place] Squamous Epithelial Negative Normal 3-5 [facility] Comment on above: Result Comment: . Performed By: #### C UA2 ####[address] [place] [address]#### C/UR ####[employer] [id number] [place] [address] Urobilinogen,Urine Normal Normal Normal (0-1) [facility] Comment on above: Result Comment: . Performed By: #### C UA2 ####[employer] [id number] [place] [address]#### C/UR ####[employer] [id number] [place] [address] WBC LM.HPF (Urine sed) [#/Area] /[HPF] Abnormal 0-5 [facility] Comment on above: Result Comment: . Performed By: #### C UA2 ####[facility] [place] [address]#### C/UR ####[facility] [place] [address] ED Provider Noteon ED Provider Note Emergency Department Encounter [facility] ED Patient: Yelena Chandra : 1935 Date of Evaluation: 06/17/2021 ED Provider: Carrie Baron, Chief Complaint Chief Complaint Patient presents with ? Fatigue ? Extremity Weakness EKUK I wore appropriate PPE for the entirety of this encounter. Does this patient come from an ECF, SNF, Rehab, Penitentiary or other Congregate setting: no (If yes to above patient needs a Covid-19 test) Yelena Chandra is a 86 y.o. female who presents to the emergency department complaining of generalized weakness. Patient reports that she could not get off the bed today. She said that she has bilateral leg pain due to bilateral arthritis. She can get off the couch so she called 911. This has been a chronic issue. Patient does not want to undergo surgery for her knee pain. She denies any new set of symptoms including chest pain, shortness of breath, abdominal pain, nausea, vomiting. She has not been able to take her blood pressure medication as she did not have this in the last 5 days. She tells me she needs to have a bowel movement. ROS: Review of Systems completed as follows: (Bold = positive, Not bold = negative) General: fevers, chills, malaise, decreased appetite Eyes: blurry vision, double vision, vision loss ENT: runny nose, congestion, sore throat, ear pain Neuro: confusion, seizure, weakness, numbness of tingling, headache Cardiovascular: chest pain, palpitations, syncope, lower extremity edema Pulmonary: shortness of breath, cough, wheezing GI: nausea, vomiting, diarrhea, constipation, abdominal pain Musculoskeletal: pain, weakness, joint pain : dysuria, hematuria, increased urinary frequency, hesitancy, flank pain Skin: rash, lesions Endocrine: increased thirst, heat or cold intolerance Psych: depressed mood, SI, HI Past History Past Medical History: Diagnosis Date ? Anxiety ? Hypertension Past Surgical History: Procedure Laterality Date ? DILATION AND CURETTAGE OF UTERUS ? HYSTERECTOMY ? TONSILLECTOMY AND ADENOIDECTOMY Social History Socioeconomic History ? Marital status: Spouse name: None ? Number of children: None ? Years of education: None ? Highest education level: None Occupational History ? None Tobacco Use ? Smoking status: Former Smoker ? Smokeless tobacco: Never Used Substance and Sexual Activity ? Alcohol use: No ? Drug use: No ? Sexual activity: None Other Topics Concern ? None Social History Narrative ? None Social Determinants of Health Financial Resource Strain: ? Difficulty of Paying Living Expenses: Not on file Food Insecurity: ? Worried About Running Out of Food in the Last Year: Not on file ? Ran Out of Food in the Last Year: Not on file Transportation Needs: ? Lack of Transportation (Medical): Not on file ? Lack of Transportation (Non-Medical): Not on file Physical Activity: ? Days of Exercise per Week: Not on file ? Minutes of Exercise per Session: Not on file Stress: ? Feeling of Stress : Not on file Social Connections: ? Frequency of Communication with Friends and Family: Not on file ? Frequency of Social Gatherings with Friends and Family: Not on file ? Attends Mandaen Services: Not on file ? Active Member of Clubs or Organizations: Not on file ? Attends Club or Organization Meetings: Not on file ? Marital Status: Not on file Intimate Partner Violence: ? Fear of Current or Ex-Partner: Not on file ? Emotionally Abused: Not on file ? Physically Abused: Not on file ? Sexually Abused: Not on file Housing Stability: ? Unable to Pay for Housing in the Last Year: Not on file ? Number of Places Lived in the Last Year: Not on file ? Unstable Housing in the Last Year: Not on file I have reviewed the history above as provided by nursing notes. Medications/Allergies Previous Medications CETIRIZINE (ZYRTEC) 10 MG TABLET Take 10 mg by mouth daily MULTIPLE VITAMINS-MINERALS (THERAPEUTIC MULTIVITAMIN-MINERALS) TABLET Take 1 tablet by mouth daily PAROXETINE (PAXIL) 10 MG TABLET Take 10 mg by mouth every morning TELMISARTAN (MICARDIS) 20 MG TABLET Take 20 mg by mouth daily No Known Allergies I have reviewed the history above as provided by nursing notes. Physical Exam ED Triage Vitals [06/17/21 1325] BP Temp Temp Source Pulse Resp SpO2 Height Weight (!) 204/107 98.2 ?F (36.8 ?C) Oral 107 20 97 % -- -- GENERAL: The patient appears nourished and normally developed. Vital signs as documented. EYES: Head exam is unremarkable. No scleral icterus or orbital trauma noted. HEENT: Mucous membranes moist. Nares patent without copious rhinorrhea. No enlarged lymphadenopathy. LUNGS: Lungs are clear to auscultation, without any respiratory distress. CARDIAC: Tachycardia. No dysrythmias or murmurs. ABDOMEN: Nontender with no obvious masses, and no peritoneal signs. EXTREMITIES: Tenderness to bilateral anterio (more content not included)... Normal [facility] Hemogramon 06-17-2021 Erythrocyte distribution width (RBC) [Ratio] 13.7 % Normal 11.5-14.5 [facility] Comment on above: Performed By: #### B MP3, HEMOG #### [facility] [address] [place] [address] Hematocrit (Bld) [Volume fraction] 37.8 % Normal 35.0-47.0 [facility] Comment on above: Performed By: #### B MP3, HEMOG #### [facility] [address] [place] [address] Hemoglobin (Bld) [Mass/Vol] 12.2 g/dL Normal 11.7-16.0 [facility] Comment on above: Performed By: #### B MP3, HEMOG #### [facility] [address] [place] [address] MCH (RBC) [Entitic mass] 27.4 pg Normal 26.0-34.0 [facility] Comment on above: Performed By: #### B MP3, HEMOG #### [facility] [address] [place] [address] MCHC 32.3 % Normal 32.0-36.0 [facility] Comment on above: Performed By: #### B MP3, HEMOG #### [facility] [address] [place] [address] MCV (RBC) [Entitic vol] 84.7 fL Normal 79.0-98.0 [facility] Comment on above: Performed By: #### B MP3, HEMOG #### [facility] [address] [place] [address] Platelet mean volume (Bld) [Entitic vol] 8.6 fL Normal 7.4-10.4 [facility] Comment on above: Performed By: #### B MP3, HEMOG #### [facility] [address] [place] [address] Platelets (Bld) [#/Vol] 405 10*3/uL Normal 140-440 [facility] Comment on above: Performed By: #### B MP3, HEMOG #### [facility] [address] [place] [address] RBC (Bld) [#/Vol] 4.46 10*6/uL Normal 3.80-5.20 [facility] Comment on above: Performed By: #### B MP3, HEMOG #### [facility] [address] [place] [address] WBC (Bld) [#/Vol] 10.4 10*3/uL Normal 3.6-10.7 [facility] Comment on above: Performed By: #### B MP3, HEMOG #### [facility] [address] [place] [address] Vital Signs Date Time Vital Sign Value Performing Clinician Laura cervantes 12-04-2024 11:45-0400 Body temperature 98.01 [degF] Ghazal Skelton DO Work Phone: [facility] 12-04-2024 11:45-0400 Diastolic blood pressure 65 mm[Hg] Ghazal Skelton DO Work Phone: [employer] 12-04-2024 11:45-0400 Heart rate 67 /min Ghazal Skelton DO Work Phone: [employer] 12-04-2024 11:45-0400 Respiratory rate 19 /min Ghazal Skelton DO Work Phone: [employer] 12-04-2024 11:45-0400 SaO2% (BldA) [Mass fraction] 97 % Ghazal Skelton DO Work Phone: [employer] 12-04-2024 11:45-0400 Systolic blood pressure 146 mm[Hg] Ghazal Skelton DO Work Phone: [employer] 12-02-2024 15:25-0400 Body height 162.6 cm Ghazal Skelton DO Work Phone: [employer] 11-30-2024 23:30-0400 Body mass index (BMI) [Ratio] 27.79 kg/m2 Ghazal Skelton DO Work Phone: [employer] 11-30-2024 23:30-0400 Body weight 73.44 kg Ghazal Skelton DO Work Phone: [employer] 07-22-2023 07:35-0500 Body temperature 96.8 [degF] Chau Pascual MD Work Phone: [employer] 07-22-2023 07:35-0500 Diastolic blood pressure 69 mm[Hg] Chau Pascual MD Work Phone: [employer] 07-22-2023 07:35-0500 Heart rate 73 /min Chau Pascual MD Work Phone: [employer] 07-22-2023 07:35-0500 Respiratory rate 16 /min Chau Pascual MD Work Phone: [employer] 07-22-2023 07:35-0500 SaO2% (BldA) [Mass fraction] 97 % Chau Pascual MD Work Phone: [employer] 07-22-2023 07:35-0500 Systolic blood pressure 136 mm[Hg] Chau Pascual MD Work Phone: [employer] 07-18-2023 12:14-0500 Body height 162.6 cm Chau Pascual MD Work Phone: [employer] 07-14-2023 10:00-0500 Body mass index (BMI) [Ratio] 25.92 kg/m2 Chau Pascual MD Work Phone: [employer] 07-14-2023 10:00-0500 Body weight 68.49 kg Chau Pascual MD Work Phone: [employer] 12-26-2022 19:08-0400 Diastolic blood pressure 79 mm[Hg] Caro Hammond DO Work Phone: [employer] 12-26-2022 19:08-0400 Heart rate 63 /min Caro Hammond DO Work Phone: [employer] 12-26-2022 19:08-0400 SaO2% (BldA) [Mass fraction] 97 % Caro Hammond DO Work Phone: [employer] 12-26-2022 19:08-0400 Systolic blood pressure 126 mm[Hg] Caro Hammond DO Work Phone: [employer] 12-26-2022 17:55-0400 Respiratory rate 18 /min Caro Hammond DO Work Phone: [employer] 12-26-2022 15:45-0400 Body temperature 98.8 [degF] Caro Hammond DO Work Phone: [employer] 08-07-2022 14:00-0400 Heart rate 91 /min Melva Voll DO Work Phone: [employer] 08-07-2022 14:00-0400 SaO2% (BldA) [Mass fraction] 96 % Melva Voll DO Work Phone: [employer] 08-07-2022 13:18-0400 Body temperature 98.6 [degF] Melva Voll DO Work Phone: [employer] 08-07-2022 13:18-0400 Diastolic blood pressure 82 mm[Hg] Melva Voll DO Work Phone: [employer] 08-07-2022 13:18-0400 Respiratory rate 18 /min Melva Voll DO Work Phone: [employer] 08-07-2022 13:18-0400 Systolic blood pressure 119 mm[Hg] Melva Voll DO Work Phone: [employer] 08-01-2022 16:34-0500 Body mass index (BMI) [Ratio] 31.41 kg/m2 Melva Voll DO Work Phone: [employer] 08-01-2022 16:34-0500 Body weight 83.01 kg Melva Voll DO Work Phone: [employer] 08-01-2022 15:40-0500 Body height 162.6 cm Melva Kingsleyl DO Work Phone: [facility] Encounters Encounter Date Encounter Type Care Provider Facility Start: 12-04-2024 End: 12-04-2024 Telephone encounter [facility] Comment on above: Other (page) Start: 11-30-2024 End: 12-04-2024 ambulatory [employer] [facility] Start: 11-30-2024 End: 12-04-2024 Evaluation and management of inpatient Ghazal Skelton DO Work Phone: [facility] Cardiac Progressive Care Unit PCU 2E Comment on above: Dementia, unspecifie d dementia severity, unspecified dementia type, unspecified whether behavioral, psychotic, or mood disturbance or anxiety (HCC) (Primary Dx); Agitation; Acute kidney injury superimposed on chronic kidney disease (HCC) (HCC); Elevated troponin; Neck mass; Abnormal chest x-ray Start: 09-01-2024 End: 09-01-2024 ambulatory BICAKODAK VERA BICAKODAK DO~[id number] [facility] Start: 02-11-2024 End: 02-11-2024 ambulatory BICAKODAK VERA BICAKODAK DO~[id number] [facility] Start: 07-30-2023 End: 07-30-2023 ambulatory [facility]cid [facility] Work Phone: Start: 07-30-2023 End: 07-30-2023 Departed Referred [facility] [employer] Start: 07-30-2023 Registered Referred [facility] [employer] [facility] Start: 07-24-2023 End: 07-24-2023 ambulatory Christiano Delcid [facility] Work Phone: Start: 07-24-2023 End: 07-24-2023 Departed Referred [facility] Start: 07-11-2023 End: 07-22-2023 Evaluation and management of inpatient Chau Pascual MD Work Phone: [facility] Medical Surgical Unit MSU 4S Comment on above: Decreased activities of daily living (ADL) (Primary Dx); Weakness; Hypokalemia; Hypomagnesemia Start: 12-26-2022 End: 12-26-2022 Emergency department patient visit Caro Dominguez DO Work Phone: [facility] ED Comment on above: Dizziness (Primary D x); Acute cystitis without hematuria Start: 08-11-2022 Telephone encounter Anna Rodney RN [facility] Comment on above: Hospital Follow-up Start: 07-31-2022 End: 08-07-2022 Evaluation and management of inpatient Melva Brenner DO Work Phone: [facility] 2E TELEMETRY Comment on above: Dyspnea (Primary Dx) Procedures Date Procedure Procedure Detail Performing Clinician Start: 12-04-2024 Comprehensive metabo lic panel Victorino Barnes MD Work Phone: Start: 12-03-2024 Comprehensive metabo lic panel Victorino Barnes MD Work Phone: Start: 12-03-2024 Creatinine other source Enzo Carey MD Work Phone: Start: 12-03-2024 Urnls dip stick/tabl et reagent auto microscopy Enzo Carey MD Work Phone: Start: 12-02-2024 Ct abdomen & pelvis w/o contrast material Victorino Barnes MD Work Phone: Start: 12-02-2024 TTE w or wo fol wcon,Doppler Victorino Barnes MD Work Phone: Start: 12-02-2024 Bacteria identified in Blood by Culture Victorino Barnes MD Work Phone: Start: 12-02-2024 C-reactive protein Rickie Barnes MD Work Phone: Start: 12-02-2024 Comprehensive metabo lic panel Victorino Barnes MD Work Phone: Start: 12-01-2024 Us soft tissue head & neck real time imge docm Victorino Barnes MD Work Phone: Start: 12-01-2024 Radiologic examinati on knee 1/2 views Victorino Barnes MD Work Phone: Start: 12-01-2024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 Elimination: Continence: Bowel: yes Bladder: yes Urinary Catheter: None Colostomy/Ileostomy/Ileal Conduit: None Date of Last BM: 12/04/24 No intake or output data in the 24 hours ending 12/03/24 1349 I/O last 3 completed shifts: In: 60 (0.8 mL/kg) [P.O.:60] Out: - (0 mL/kg) Weight: 73.4 kg 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 Ventilator: No ventilator support Rehab Therapies: physical therapy, occupational therapy, and speech therapy Weight Bearing Status/Restrictions: no restriction Other Medical Equipment (for information only, NOT a DME order): bedside commode, walker, and shower chair Other Treatments: patient would likely benefit from a barium swallow per discussion with speech Patient's personal belongings (please select all that are sent with patient): none and RN SIGNATURE: MANAGEMENT/SOCIAL WORK SECTION Inpatient Status Date: 11/30/24: Discharging to Facility/ Agency Name: [facility] Address: [address] [place] [address] Fax: Dialysis Facility (if applicable) Name: Address: Dialysis Schedule: Phone: Fax: Chief Architect/Remedial Project Manager signature: ICIAN SECTION Name: Yelena Chandra Prognosis: fair Condition at Discharge: stable Rehab Potential (if transferring to Rehab): fair Recommended Labs or Other Treatments After Discharge: CBC, BMP in 3 days and in 1 week. Has thyroid lesion, has to follow up as an outpatient for possible biopsy. 1.3 x 3.3 cm cystic lesion appearing to extend from the posterior aspect of the pancreas body. A side branch intraductal papillary mucinous neoplasm an follow-up MRI/MRCP can be obtained for further evaluation with primary care doctor as an outpatient if we want to pursue further workup and management. Discussed with sister, TAMANNA, and she is aware and understands. The individual is being admitted to a nursing facility directly from an [facility] or a unit of a hospital that is not operated by or licensed by [facility] under section 5119.14 or 5160-3-15.1 5 The individual requires the level of services provided by a nursing facility for the condition for which he or she was treated in the hospital and, Physician Certification: I certify the above information and transfer of Yelena Chandra is necessary for the continuing treatment of the diagnosis listed and that she requires [facility]entiary facility for less than 30 days. Update Admission H&P: No change in H&P PHYSICIAN SIGNATURE: The following attachments cannot be sent through Care Everywhere.Delirium (Confusion) Discharge Instructions (Nicaraguan)documented in this encounter [facility] 12-04-2024 Note Discharge Summary Yelena Chandra : 1935 ADMIT DATE: 11/30/2024 DISCHARGE DATE: 12/04/2024 PRIMARY CARE PHYSICIAN: Yenifer Schulz VISIT STATUS: Admission CODE STATUS: Full Code DISCHARGE DIAGNOSES: Principal Problem: Dementia, unspecified dementia severity, unspecified dementia type, unspecified whether behavioral, psychotic, or mood disturbance or anxiety (HCC) Active Problems: Moderate malnutrition (CMS/HCC) (HCC) Debility At risk for delirium Acute, acute on chronic, unstable/uncontrolled chronic problems/diagnoses: Dementia with behavioral changes -improved and likely at baseline, alert , awake and answers questions appropriately. Geriatrics consulted and restarted Zoloft 50 mg daily. Failure to thrive - lives with sister, PT/OT and likely placement NORI with underlying mild CKD- likely from dehydration, had contrast exposure in ED, CT abdomen - no hydronephrosis, calculi- gentle hydration. . CK normal . Improving. Follow up BMP Hypomagnesemia- replaced Elevated HS troponin - tending down, no chest pain, EKG- right BBB- similar to previous EKG. CTA chest negative for PE. ECHO- normal EF, no wall motion abnormality. Mild leucocytosis - improved, no focus of infection . BC negative Thyroid and parathyroid mass - check TSH- luis. USG done - reviewed- will follow up as an outpatient Pain right knee- x ray right knee and pelvis with OA, no significant effusion at knee joint. ROM + HTN- not on amlodipine at home, will DC. Metoprolol 25 mg BID. Elevated procal/CRP- check BC, no sign of infection. Hypokalemia - replace 1.3 x 3.3 cm cystic lesion appearing to extend from the posterior aspect of the pancreas body. A side branch intraductal papillary mucinous neoplasm an follow-up MRI/MRCP can be obtained for further evaluation with primary care doctor as an outpatient if we want to pursue further workup and management. Discussed with sister, TAMANNA, and she is aware and understands. HOSPITAL COURSE: Details as above. Admitted for behavioral symptoms with h/o dementia. Has NORI, which is improving with iv fluid Workup for infection negative. CT chest negative for PE. X rays without any fracture. Geriatrics consulted and resume home medications . Symptoms improved and much calmer DC to SNF in stable condition. POA , patients sister , called and updated. SIGNIFICANT DIAGNOSTIC STUDIES: CT abdomen: FINDINGS: This examination is limited for the evaluation of solid organs and vascular structures due to the lack of intravenous contrast. Lower thorax: Normal. Stomach: Unremarkable. Liver: Normal size and contours. Normal hepatic parenchyma. No focal lesion. Biliary tree: Unremarkable gallbladder by CT. No biliary dilatation Spleen: Normal Adrenals: Normal. Pancreas: 1.3 x 3.3 cm cystic lesion appearing to extend from the posterior aspect of the pancreas body (axial images 64-72). Otherwise unremarkable. Right kidney and collecting system: No contour abnormality or focal renal lesion identified. No calculi, hydronephrosis or ureteral dilatation. Left kidney and collecting system: No contour abnormality or focal renal lesion identified. No calculi, hydronephrosis or ureteral dilatation. Free air or fluid: None. Mesenteric/retroperitoneal: No adenopathy or inflammation. Aorta: Normal caliber. Bowel: No inflammatory changes. No dilatation is noted. Pelvic organs/viscera: The uterus is not identified. Bladder: Contrast distends the urinary bladder. No wall thickening or filling defect. Inguinal: No lymphadenopathy. Abdominal wall/soft tissues: No ventral hernia is evident. Osseous structures: Advanced multilevel degenerative changes including 5 mm L3-4 and 7 mm L4-5 anterolisthesis. Impression: 1. No evidence of an acute infectious or inflammatory process in the abdomen or pelvis. 2. 1.3 x 3.3 cm cystic lesion appearing to extend from the posterior aspect of the pancreas body. A side branch intraductal papillary mucinous neoplasm an follow-up MRI/MRCP can be obtained for further evaluation. USG thyroid: FINDINGS: Right lobe measures 4.1 x 3.7 x 5.2 cm. Left lobe measures 4.5 x 2.9 x 5.9 cm and extends caudal to thoracic inlet limiting evaluation. Thyroid isthmus 0.6 mm in AP dimension. Heterogeneous echogenicity. Nodule #1: Location: Right mid lobe Size: 4.3 x 3.5 x 3.8 Composition: Solid Echogenicity: Hypo Margin: Lobulated/irregular Echogenic foci: None TI-RADS points: 6 Impression: 1. Large, lobular and heterogeneously hypoechoic mass in the right mid thyroid lobe, indeterminate. Ultrasound-guided FNA suggested to establish histology. 2. TI-RADS 4 = 4-6 points - (moderately suspicious) 5-20% FNA when >/= 1.5cm Follow when >1.0cm at 1, 2, 3 and 5 years TI-RADS score(s) and guidelines (please see below). *TI-RADS (2017) Reference: Shannen Davis. ACR Thyroid Imaging, Reporting and Data System (TI-RADS): Zoë Alberts (more content not included)... [facility] 12-04-2024 Hospital course Narrative Discharge Summary Yelena Chandra : 1935 ADMIT DATE: 11/30/2024 DISCHARGE DATE: 12/04/2024 PRIMARY CARE PHYSICIAN: Yenifer Schulz VISIT STATUS: Admission CODE STATUS: Full Code DISCHARGE DIAGNOSES: Principal Problem: Dementia, unspecified dementia severity, unspecified dementia type, unspecified whether behavioral, psychotic, or mood disturbance or anxiety (HCC) Active Problems: Moderate malnutrition (CMS/HCC) (HCC) Debility At risk for delirium Acute, acute on chronic, unstable/uncontrolled chronic problems/diagnoses: Dementia with behavioral changes -improved and likely at baseline, alert , awake and answers questions appropriately. Geriatrics consulted and restarted Zoloft 50 mg daily. Failure to thrive - lives with sister, PT/OT and likely placement NORI with underlying mild CKD- likely from dehydration, had contrast exposure in ED, CT abdomen - no hydronephrosis, calculi- gentle hydration. . CK normal . Improving. Follow up BMP Hypomagnesemia- replaced Elevated HS troponin - tending down, no chest pain, EKG- right BBB- similar to previous EKG. CTA chest negative for PE. ECHO- normal EF, no wall motion abnormality. Mild leucocytosis - improved, no focus of infection . BC negative Thyroid and parathyroid mass - check TSH- luis. USG done - reviewed- will follow up as an outpatient Pain right knee- x ray right knee and pelvis with OA, no significant effusion at knee joint. ROM + HTN- not on amlodipine at home, will DC. Metoprolol 25 mg BID. Elevated procal/CRP- check BC, no sign of infection. Hypokalemia - replace 1.3 x 3.3 cm cystic lesion appearing to extend from the posterior aspect of the pancreas body. A side branch intraductal papillary mucinous neoplasm an follow-up MRI/MRCP can be obtained for further evaluation with primary care doctor as an outpatient if we want to pursue further workup and management. Discussed with sister, TAMANNA, and she is aware and understands. HOSPITAL COURSE: Details as above. Admitted for behavioral symptoms with h/o dementia. Has NORI, which is improving with iv fluid Workup for infection negative. CT chest negative for PE. X rays without any fracture. Geriatrics consulted and resume home medications . Symptoms improved and much calmer DC to SNF in stable condition. POA , patients sister , called and updated. SIGNIFICANT DIAGNOSTIC STUDIES: CT abdomen: FINDINGS: This examination is limited for the evaluation of solid organs and vascular structures due to the lack of intravenous contrast. Lower thorax: Normal. Stomach: Unremarkable. Liver: Normal size and contours. Normal hepatic parenchyma. No focal lesion. Biliary tree: Unremarkable gallbladder by CT. No biliary dilatation Spleen: Normal Adrenals: Normal. Pancreas: 1.3 x 3.3 cm cystic lesion appearing to extend from the posterior aspect of the pancreas body (axial images 64-72). Otherwise unremarkable. Right kidney and collecting system: No contour abnormality or focal renal lesion identified. No calculi, hydronephrosis or ureteral dilatation. Left kidney and collecting system: No contour abnormality or focal renal lesion identified. No calculi, hydronephrosis or ureteral dilatation. Free air or fluid: None. Mesenteric/retroperitoneal: No adenopathy or inflammation. Aorta: Normal caliber. Bowel: No inflammatory changes. No dilatation is noted. Pelvic organs/viscera: The uterus is not identified. Bladder: Contrast distends the urinary bladder. No wall thickening or filling defect. Inguinal: No lymphadenopathy. Abdominal wall/soft tissues: No ventral hernia is evident. Osseous structures: Advanced multilevel degenerative changes including 5 mm L3-4 and 7 mm L4-5 anterolisthesis. Impression: 1. No evidence of an acute infectious or inflammatory process in the abdomen or pelvis. 2. 1.3 x 3.3 cm cystic lesion appearing to extend from the posterior aspect of the pancreas body. A side branch intraductal papillary mucinous neoplasm an follow-up MRI/MRCP can be obtained for further evaluation. USG thyroid: FINDINGS: Right lobe measures 4.1 x 3.7 x 5.2 cm. Left lobe measures 4.5 x 2.9 x 5.9 cm and extends caudal to thoracic inlet limiting evaluation. Thyroid isthmus 0.6 mm in AP dimension. Heterogeneous echogenicity. Nodule #1: Location: Right mid lobe Size: 4.3 x 3.5 x 3.8 Composition: Solid Echogenicity: Hypo Margin: Lobulated/irregular Echogenic foci: None TI-RADS points: 6 Impression: 1. Large, lobular and heterogeneously hypoechoic mass in the right mid thyroid lobe, indeterminate. Ultrasound-guided FNA suggested to establish histology. 2. TI-RADS 4 = 4-6 points - (moderately suspicious) 5-20% FNA when >/= 1.5cm Follow when >1.0cm at 1, 2, 3 and 5 years TI-RADS score(s) and guidelines (please see below). *TI-RADS (2017) Reference: Shannen Davis. ACR Thyroid Imaging, Reporting and Data System (TI-RADS): White Paper of the ACR TI-RADS Committee. J Am [employer]. August 2016 Thyroid nodule details (add points for total score): Composition(points): 1 - mixed cystic and solid 2 - solid Echogenicity: 1 - hyperechoic or isoechoic 2 - hypoechoic 3 - very hypoechoic Shape: 3 - taller than wide Margin: 2 - lobulated or irregular 3 - extrathyroidal extension Echogenic foci: 1 - macrocalcifications 2 - rim calcification 3 - microcalcifications Risk for malignancy: TI-RADS 1 = 0 points - (benign) <2% risk TI-RADS 2 = 2 points - (not suspicious) <5% TI-RADS 3 = 3 points - (mildly suspicious) <5% FNA when >/= 2.5cm Follow when >1.5cm at 1, 3 and 5 years TI-RADS 4 = 4-6 points - (moderately suspicious) 5-20% FNA when >/= 1.5cm Follow when >1.0cm at 1, 2, 3 and 5 years TI-RADS 5 = 7+ points - (highly suspicious) >20% FNA when >/= 1.0cm Follow when >0.5cm every year for up to 5 years TI-RADS Notes: Nodule vascularity and color flow are no longer considered useful characteristics to assess risk for malignancy Highest risk factors: Microcalcifications, lobular borders, solid hypoechoic No biopsy below 1cm in maximum dimension Follow maximum of 4 nodules Significant growth is increase in two dimensions each by 20% Follow up scanning of less than 1yr is not warranted If TI-RADS level changes but FNA still not recommended, then follow in 1 year Biopsy of no more than 2 nodules with highest TI-RADS level CT chest: CT CHEST PULMONARY EMBOLISM PROTOCOL CLINICAL HISTORY: Chest pain COMPARISON: 06/18/2021 CTA Technique: [address] images were obtained of the chest after the uneventful IV administration of 75 mL of Isovue-370. Image acquisition was timed for maximal opacification of the pulmonary arteries. Images were reformatted in coronal and sagittal projections. 3D reformats were generated concurrently by myself on a separate workstation to better visualize the gross vascular anatomy. Dose reduction was employed with automated exposure control. FINDINGS: Pulmonary arteries: There is technically adequate opacification of the pulmonary arteries. No pulmonary embolus is identified. The pulmonary arteries normal in caliber. Airway: Tracheobronchial tree remains patent. Lungs: Bibasilar dependent atelectasis is observed. Otherwise, no evidence of focal consolidation. No pulmonary masses or suspicious nodules identified. Pleura: No pleural thickening or effusion. Heart/Great vessels: Normal heart size with no pericardial effusion. There is mild-moderate coronary artery calcification. Atherosclerotic calcifications are noted in the thoracic aorta and branch vasculature. Mediastinum/Charline: No enlarged mediastinal, hilar, or axillary lymph nodes. Thyroid: Enlarged heterogeneous thyroid gland is observed with substernal extension of thyroid tissue, with the largest lesion measuring up to 3.5 cm (series 6 axial image 13). Esophagus: Esophagus is unremarkable. Visualized Upper Abdomen: The visualized upper abdomen is unremarkable. Chest wall: Unremarkable. Partial visualization of left parotid gland heterogeneous mass, better characterized on dedicated CT neck soft tissues. Bones: Diffuse osteopenia is observed. Severe degenerative changes of the bilateral glenohumeral joints is noted. Mild degenerative changes of the thoracic spine are observed. Impression: 1. No evidence of acute pulmonary embolism. 2. 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 Neoplastic process is not excluded in this context. 3. Partial visualization of left parotid gland heterogeneous mass, better characterized on dedicated neck CT. Again, neoplasm is not entirely excluded and further evaluation and management is warranted. 4. Other chronic findings as discussed. CT soft tissue neck: FINDINGS: Airways: The nasopharynx, oropharynx, hypopharynx are unremarkable. The airways are patent and the lung apices are clear. Salivary glands: Large mass is identified in the left parotid gland measuring 3.8 x 3.4 cm in maximal axial dimensions (series 2 axial image 44). Lymph nodes: No enlarged or morphologically abnormal cervical lymph nodes are identified. Accessory structures: Enlarged heterogeneous appearance of the thyroid gland is observed with multiple hypodensities and foci of calcification, the largest measuring 3.9 x 3.1 cm in the right lobe (series 2 axial image 60). Substernal extension of the enlarged thyroid gland observed. Soft tissues: No suspicious soft tissue masses. Osseous: Multilevel degenerative changes of the cervical spine noted with facet arthropathy and intervertebral disc space narrowing with osteophytosis. Superimposed diffuse osteopenia. Impression: 1. 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 Further evaluation and management is warranted. 2. Enlarged heterogeneous thyroid gland observed with multiple hypodensities and foci of calcification. Largest lesion measures up to 3.9 cm, for which thyroid ultrasound is recommended for further investigation as neoplasm is not excluded. 3. Other chronic findings as discussed. ECHO: Left Ventricle: Left ventricle size is normal. Normal wall thickness. Normal left ventricular systolic function. EF by 2D Simpsons Biplane is 58%. Normal wall motion. Diastolic dysfunction present with increased LAP with normal LVEF. Right Ventricle: Right ventricle size is normal. Normal systolic function. No significant valvular abnormalities. Echo Findings Left Ventricle Left ventricle size is normal. Normal wall thickness. Normal left ventricular systolic function. EF by 2D Simpsons Biplane is 58%. Normal wall motion. Diastolic dysfunction present with increased LAP with normal LVEF. Right Ventricle Right ventricle size is normal. Normal systolic function. Left Atrium Not well visualized. Left atrium size is normal (LA volume index 16-34 mL/m2).LA Vol Index is 32 ml/m2. Interatrial Septum No interatrial shunt visualized on color Doppler. Right Atrium Not well visualized. Right atrium size is normal. Aortic Valve Trileaflet. Mildly calcified cusps. Mild annular calcification. Trace regurgitation. No stenosis. Mitral Valve Valve structure is normal. Mild annular calcification (posterior). Trace regurgitation. No stenosis noted. Tricuspid Valve Valve structure is normal. Mild (1+) regurgitation. Unable to accuratley assess RVSP due to not being able to assess RA pressure. RVSP is at least 22 mmHg. Pulmonic Valve The pulmonic valve visualization is suboptimal but appears to be functioning normally. Trace regurgitation. Pulmonary Artery Pulmonary artery was not well visualized. Aorta Normal sized sinuses of Valsalva and ascending aorta. IVC/Hepatic Veins IVC was not assessed due to poor image quality. Cannot estimate RA pressure due to the IVC not being visualized. Pericardium No pericardial effusion. CONSULTANTS: Geriatrics RECOMMENDED NEXT STEPS: CBC, BMP in 3 days and in 1 week. Has thyroid lesion, has to follow up as an outpatient for possible biopsy. 1.3 x 3.3 cm cystic lesion appearing to extend from the posterior aspect of the pancreas body. A side branch intraductal papillary mucinous neoplasm an follow-up MRI/MRCP can be obtained for further evaluation with primary care doctor as an outpatient if we want to pursue further workup and management. Discussed with sister, TAMANNA, and she is aware and understands. Exam: BP 157/80 (BP Location: Left arm, Patient Position: Lying) Pulse 82 Temp 36.3 C (97.4 F) (Temporal) Resp 18 Ht 5' 4" (1.626 m) Wt 161 lb 14.4 oz (73.4 kg) SpO2 95% BMI 27.79 kg/m General: alert, awake Chest : b/l equal air entry , no added sound CVS: s1, s2, mo PA: soft, NT, BS+ Ext no edema Neuro: alert, awake , no focal weakness. DISCHARGE MEDICATIONS: Medication List START taking these medications cholecalciferol 50 MCG (1999) tablet Commonly known as: Vitamin D-3 Take 1 tablet (2,000 Units) by mouth daily. Start taking on: December 05, 2024 miconazole 2 % powder Commonly known as: Micotin Apply topically 2 times daily. CHANGE how you take these medications metoprolol tartrate 25 MG tablet Commonly known as: Lopressor Take 1 tablet (25 mg) by mouth 2 times daily. What changed: medication strength how much to take additional instructions sertraline 50 MG tablet Commonly known as: Zoloft Take 1 tablet (50 mg) by mouth daily. Do not start before July 25, 2023. What changed: Another medication with the same name was removed. Continue taking this medication, and follow the directions you see here. CONTINUE taking these medications aspirin 81 MG EC tablet melatonin 3 MG tablet Take 1 tablet (3 mg) by mouth Nightly as needed for sleep. pantoprazole 40 MG EC tablet Commonly known as: ProtoNix Take 1 tablet (40 mg) by mouth every morning (before breakfast). Do not crush, chew, or split. Do not start before August 07, 2022. therapeutic multivitamin-minerals tablet STOP taking these medications amLODIPine 5 MG tablet Commonly known as: Norvasc Where to Get Your Medications These medications were sent to [id number] [place] [id number] Hours: Friday to Friday 10 am to 6 pm cholecalciferol 50 MCG (1999 UT) tablet metoprolol tartrate 25 MG tablet miconazole 2 % powder DIET: Adult diet Dysphagia - Soft and Bite Sized; Low Sodium (2 gm) ACTIVITY: No restriction. COMPLEXITY OF FOLLOW UP: [x] Moderate Complexity: follow up within 7-14 calendar days (08564) [] Severe Complexity: follow up within 7 calendar days (11566) FOLLOW UP TESTING, PENDING RESULTS OR REFERRALS AT TRANSITIONAL CARE VISIT: [x] Yes [] No PENDING STUDIES: DISPOSITION: Home FACILITY/HOME CARE AGENCY NAME: Follow up with [facility] [place] [address] [facility] [id number] on INSTRUCTIONS TO MA/SW: Please call patient on day after discharge (must document patient contacted within 2 business days of discharge). FOLLOW UP QUESTIONS FOR MA/SW: 1. Did you get medications filled and taking them as instructed from discharge? 2. Are you following your discharge instructions from your hospital stay? 3. Please confirm patient is scheduled for a follow up appointment within the above time frame. DISCHARGE TIME: 40 min SIGNED: Victorino Barnes MD 12/04/2024, 11:04 AM documented in this encounter [facility] 12-04-2024 History of Present illness Narrative Images from the original note were not included. Speech-Language Pathology SPEECH LANGUAGE PATHOLOGY [facility] Dysphagia Treatment Note Patient Name: Yelena Chandra Evaluation Date: 12/04/2024 Date of : 1935 Admission Date: 11/30/2024 10:21 PM Age: 89 y.o. [facility] Subjective Patient alert and cooperative. Seen upright in bed. Answers all basic questions with clear, strong vocal quality. Follows all basic commands. Visitors at bedside - RN. Spoke with RNDee, who cleared pt for treatment. Current Diet: Dietary Orders (From admission, onward) Start Ordered 12/03/24 0926 Adult diet Dysphagia - Soft and Bite Sized; Low Sodium (2 gm) Diet effective now Question Answer Comment Diet type Dysphagia - Soft and Bite Sized Sodium restriction: Low Sodium (2 gm) 12/03/24 0925 12/02/24 1545 SnacksPM Snack; vesta Ensure High Protein Until discontinued Question Answer Comment Frequency PM Snack Comment vesta Ensure High Protein 12/02/24 1544 Aspiration Precautions: - Upright positioning for all PO intake - Slow rate of intake - Small bites/sips - Alternate solid and liquids - Feed assist Oxygen: Oxygen Therapy: None (Room air) Pain: Pt denies any current pain. PPE Worn: gloves Objective & Assessment Activity 1: re-bse/diet tolerance New dysphagia order placed overnight due to pt unable to swallow pills/liquids for pm RN. Pt was alert and positioned upright in bed this am. No upper dentition, answering questions appropriately, vocal quality appeared normal. Breakfast tray at bedside. GAS COMPRESSOR TURBINE OPERATOR provided 1:1 feed assist. Pt agreeable to PO trials, asking for liquids with a straw "It's easier that way". The patient tolerated thin liquids via straw sip x7 trials. Cough observed on initial 2 trials, and then no further coughing was observed throughout the meal/session. Pt accepted puree (yogurt), minced/moist (oatmeal) and soft/bite sized (eggs) with GAS COMPRESSOR TURBINE OPERATOR this am. Further accepted meds whole in puree and crushed in puree. Pt was mildly orally defensive as the meal progress, protruding tongue forward when presented with spoon, as to indicate she was getting full. Otherwise, the patient accepted bolus via spoon normally, mastication was timely & complete, min oral residue noted on lingual surface with scrambled eggs, but when offered liquid rinse, cleared fully. No overt s/s of aspiration/penetration noted throughout the breakfast meal. Vocal quality remained clear. Recommending to continue on current diet and provide feeding assist as needed. Pt may have been impacted by "sundowning" for pm RN, which impacted mentation & ability to accept medications. Plan & Recommendations Plan: Continue acute GAS COMPRESSOR TURBINE OPERATOR therapy per initial plan of care and established goals. Recommend Soft and bite-sized solids and Thin liquids and meds as tolerated and the following precautions: - Upright positioning for all PO intake - Slow rate of intake - Small bites/sips - 1:1 Assistance - Alternate solid and liquids - Rest periods during meals D/C Recommendations: to be determined Education Education Given: swallowing strategies, diet recommendations Given To: patient and RN Response: verbalizes understanding Goals Patient Stated Goal: none stated. Encounter Problems Encounter Problems (Active) Swallowing Patient will tolerate the least restrictive diet consistency to allow for safe consumption of daily meals (Progressing) Start: 12/02/24 Expected End: 12/16/24 Patient will demonstrate safe swallowing Intervention/techniques (Progressing) Start: 12/02/24 Expected End: 12/16/24 Patient will use appropriate strategies for increased oralpharyngeal swallow function (Progressing) Start: 12/02/24 Expected End: 12/16/24 Therapy Time GAS COMPRESSOR TURBINE OPERATOR Individual Minutes Time In: 0835 Time Out: 0900 Minutes: 25 VASU Duran [facility] Nephrology Progress Note Subjective/ 89 y.o. year old female who we are seeing in consultation for NORI. Mental status better. Bp okay. nO SOB. Good urine output. ROS Otherwise negative. No change iN PFSH. Objective/ Vitals: 12/03/24 2230 12/04/24 0316 12/04/24 0405 12/04/24 0824 BP: 123/84 132/67 157/80 BP Location: Left arm Left arm Left arm Patient Position: Sitting Sitting Lying Pulse: 75 78 68 82 Resp: 18 18 18 Temp: 36.8 C (98.2 F) 36.5 C (97.7 F) 36.3 C (97.4 F) TempSrc: Temporal Temporal Temporal SpO2: 97% 95% 95% Weight: Height: 24HR INTAKE/OUTPUT: Intake/Output Summary (Last 24 hours) at 12/04/2024 0831 Last data filed at 12/03/2024 1826 Gross per 24 hour Intake 250 ml Output -- Net 250 ml Constitutional: Alert, awake, no apparent distress Head: AT NC Neck: No JVD, no thyromegaly Cardiovascular: S1, S2 without m/r/g Respiratory: CTA B without w/r/r Abdomen: soft, nt Ext: NO B/L pitting LE edema, no tremor. Scheduled Meds[1] Continuous Meds[2] PRN Meds[3] Data/ Recent Labs 12/02/2451812/03/24 0404 12/04/24 0140 WBC 8.8 6.4 6.1 HGB 11.4* 11.7 10.3* HCT 35.9 36.5 32.7* MCV 84.3 84.9 86.3 PLT 316 303 320 Recent Labs 12/02/2451812/03/24 0404 12/04/24 0140 NA 139 138 137 K 3.3* 4.2 3.6 CL 105 103 109* CO2 24 23 19* GLUCOSE 132* 124* 113 MG 2.3 -- -- BUN 47* 57* 44* CREATININE 1.92* 1.69* 1.29* Assessment/ NORI 2/2 ATN (IV contrast. ) CKD IIIA. Hypokalemia. Dementia. F03.9 FTT. Thyroid and parathyroid mass. Plan/ Cr peaked and is starting to improve. Hypokalemia improving too. NO further need for IVF. Avoid further IV contrast. Will follow. Enzo Carey MD [facility] [1] aspirin, 81 mg, Oral, Daily cholecalciferol, 2,000 Units, Oral, Daily enoxaparin, 40 mg, SubCUTAneous, Daily melatonin, 3 mg, Oral, Nightly metoprolol tartrate, 25 mg, Oral, BID miconazole, , Topical, BID pantoprazole, 40 mg, Oral, qAM AC sertraline, 50 mg, Oral, Daily therapeutic multivitamin-minerals, 1 tablet, Oral, Daily [2] [3] PRN medications: acetaminophen OR acetaminophen, melatonin, ondansetron ODT OR ondansetron, polyethylene glycol (PEG) 3350 Cosigned by Jennifer Hamm MD at 12/04/2024 6:44 PM EDT Associated attestation - Jennifer Hamm MD - 12/04/2024 6:44 PM EDT [facility] note reviewed. I agree with her assessment and plan. Any variance is mentioned. Plan was formulated together. Resolving NORI Will surely correct in the setting of, resolving ATN Replace electrolytes as necessary Should be okay for discharge from a renal standpoint [facility] Nephrology Progress Note Subjective/ 89 y.o. year old female who we are seeing in consultation for NORI. Mental status better. Bp okay. nO SOB. Good urine output. ROS Otherwise negative. No change iN PFSH. Objective/ Vitals: 12/03/24 0249 12/03/24 0846 12/03/24 1216 12/03/24 1529 BP: 116/63 140/73 135/75 104/67 BP Location: Left arm Left arm Left arm Right arm Patient Position: Lying Lying Lying Lying Pulse: 76 83 70 78 Resp: 16 16 18 16 Temp: 36.8 C (98.3 F) 36.6 C (97.8 F) 36.4 C (97.5 F) 37.3 C (99.1 F) TempSrc: Temporal Temporal Temporal Temporal SpO2: 96% 95% 98% 96% Weight: Height: 24HR INTAKE/OUTPUT: No intake or output data in the 24 hours ending 12/03/241813 Constitutional: Alert, awake, no apparent distress Head: AT NC Neck: No JVD, no thyromegaly Cardiovascular: S1, S2 without m/r/g Respiratory: CTA B without w/r/r Abdomen: soft, nt Ext: NO B/L pitting LE edema, no tremor. Scheduled Meds[1] Continuous Meds[2] PRN Meds[3] Data/ Recent Labs 11/30/24224412/02/24 0519 12/03/24 0404 WBC 12.6* 8.8 6.4 HGB 14.5 11.4* 11.7 HCT 44.1 35.9 36.5 MCV 82.3 84.3 84.9 PLT 318 316 303 Recent Labs 11/30/24224412/02/2419 12/03/24 0404 NA 140 139 138 K 3.5 3.3* 4.2 CL 101 105 103 CO2 24 24 23 GLUCOSE 120* 132* 124* MG 1.5* 2.3 -- BUN 25* 47* 57* CREATININE 1.26* 1.92* 1.69* Assessment/ NORI 2/2 ATN (IV contrast. ) CKD IIIA. Hypokalemia. Dementia. F03.9 FTT. Thyroid and parathyroid mass. Plan/ Cr peaked and is starting to improve. Hypokalemia improving too. NO further need for IVF. Avoid further IV contrast. Will follow. Enzo Carey MD [facility] [1] aspirin, 81 mg, Oral, Daily [START ON 12/04/2024] cholecalciferol, 2,000 Units, Oral, Daily enoxaparin, 40 mg, SubCUTAneous, Daily melatonin, 3 mg, Oral, Nightly metoprolol tartrate, 25 mg, Oral, BID pantoprazole, 40 mg, Oral, qAM AC sertraline, 50 mg, Oral, Daily therapeutic multivitamin-minerals, 1 tablet, Oral, Daily [2] [3] PRN medications: acetaminophen OR acetaminophen, melatonin, ondansetron ODT OR ondansetron, polyethylene glycol (PEG) 3350 Images from the original note were not included. OCCUPATIONAL THERAPY [facility] Treatment Note Name/MRN: Yelena Chandra ([id number]) Date of : 1935 Age: 89 y.o. Room[facility]: [facility] A Visit #: 2 out of 5 Discharge Recommendation: Nursing Home Facility Equipment Needed: No Assessment Patient seen for OT treatment this date focusing on functional transfers/mobility, bathroom level toileting, hand hygiene, oral hygiene, face washing, and lower body dressing this date. She requires increased time to complete all functional tasks this date. She was able to complete transfers mobility with min assist to contact-guard assist overall for stability with increased reliance on front wheel walker. She required min assist overall for lower body dressing this date to don hospital briefs and pants. She requires near total cueing this date for sequencing initiation of all functional tasks. She was able to complete oral hygiene and face washing and sitting at edge of bed this date with set up assist overall with increased cueing throughout for sequencing. She will continue benefit from skilled OT services to improve her independence, safety, and endurance. Continue to recommend plan discharge for SNF at this time. Subjective Pleasant and cooperative. OK to see per RN. Agreeable to therapy evaluation. Pain: Pt denies any current pain. Medical Precautions: No active isolations Proper PPE donned/doffed in accordance with facility standards. Fall Risk: Velarde Fall Risk Score: 60 (High Risk) Precautions/Restrictions: N/A Family/Caregiver Present: none Objective ADLs LE Dressing: Min Assist Toileting: Min Assist Grooming: after setup Patient requires increased time to complete all functional tasks this date. She was able to complete bath and level toileting with min assist overall. No physical assist for ASTRID care this date however increased assist for clothing management at this time for thoroughness. Patient requires near total cueing this date for sequencing completion of toileting task. Multiple times patient asks "what do I do next" and requires redirection. She was able to complete hand hygiene at sink level with contact-guard assist overall for safety and stability. Good front wheel walker management noted at this time. She completed oral hygiene and face washing task and sitting at edge of bed with set up assist overall. She was able to don hospital pants and briefs this date with min assist overall. Patient able to thread right lower extremity through without physical assist however minimal assistance required for left lower extremity this date secondary to increased fatigue following other functional activities and mobility. Patient required minimal assist to manage up over hips posteriorly in standing. Continues to require near-total sequencing initiation cues throughout. Bed Mobility Sit to supine: SBA Scooting: SBA Patient up in bathroom with physical therapy upon arrival. Direct handoff from physical therapist to initiate the session. Standby assist overall for return to supine or following return to bed. Patient able to manage lower extremities and trunk into bed without physical assist. Transfers/Mobility Sit to stand: Min Assist Stand to sit: Contact Guard Toilet: Contact Guard Functional mobility: Contact Guard, Min Assist Patient completes sit to stands x 3 this date during session. Initial sit to stand completed from toilet to front wheel walker with increased cueing provided for proper hand placement at grab bars and front wheel walker for stability. Contact-guard assist overall for them to standing with no physical assist for stability initially required. Increased cueing throughout for sequencing, hand placement, and safety. Good follow-through of cueing however poor carryover noted between times. She was able to complete short mobility from bathroom to sink level with contact-guard assist overall and fair device management noted throughout. Occasional cueing required for obstacle negotiation. She required min assist overall for mobility following hand hygiene at sink level for return mobility to bed. Increased assist required for front wheel walker management as well as increasing instability secondary to fatigue. She was able to complete x 2 additional transfers from edge of bed during completion of lower body dressing task. Poor carryover of initial education noted at this time with min assist overall for lifting to standing this date. Device(s) used: Front wheeled walker Cognition - Following commands: follows one step commands with increased time, follows one step commands with repetition, follows multi-step commands with increased time, and follows multi-step commands with repetition - Attention span: difficulty attending to directions - Memory: decreased recall of recent events and decreased short term memory - Safety judgement: decreased awareness of need for assistance and decreased awareness of need for safety - Problem solving: assistance required to generate solutions, assistance required to implement solutions, assistance required to identify errors made, and assistance required to correct errors made - Insights: not aware of deficits - Initiation: requires cues for some - Sequencing: requires cues for some Plan Continue acute OT per plan of care. Safety/Education Safety Safety Devices in place: All fall risk precautions in place, call light within reach, left in bed, bed alarm in place, gait belt, patient at risk for falls, and nurse notified Restraints: No Education Education Given To: patient Education Provided: OT Role, Plan of Care, ADL Adaptive Strategies, Transfer Training, Equipment, Fall Prevention Education, Discharge Recommendations, and Benefits of Increasing Activity Education Method: Verbal, Demonstration, and Teach Back Barriers to Learning: Cognition Education Outcome: Continued Education Needed AM-PAC AM-PAC Inpatient Daily Activity Raw Score: 20 ADL Inpatient CMS G-Code Modifier: CJ Goals Patient Stated Goal: none stated at this time. Encounter Problems Encounter Problems (Active) Balance Patient will maintain dynamic standing balance for 3 minutes with modified independence in order to demonstrate decreased risk of falling. (Progressing) Start: 12/01/24 Expected End: 12/06/24 Dressing Upper Extremities Pt will perform UB Adls and grooming tasks with set-up assist at EOB (Progressing) Start: 12/01/24 Expected End: 12/06/24 Dressings Lower Extremities Patient will dress lower body with Mod I (Progressing) Start: 12/01/24 Expected End: 12/06/24 Mobility Pt will perform functional mobility and transfers with FWW and mod I (Progressing) Start: 12/01/24 Expected End: 12/06/24 Toileting Patient will complete toileting tasks at standard toilet with modified independence. (Progressing) Start: 12/01/24 Expected End: 12/06/24 Therapy Time Individual Co-treatment Time In 1058 (direct handoff from PT) Time Out 1124 Minutes 26 Timed Code Treatment Minutes: 26 Minutes (ADL x2) Benjamin Pryor OT Portions of the information within this encounter were entered using an electronic dictation system. Best attempts were made to edit/proofread the information prior to note completion. Despite the review of information, some errors may remain. If there are questions related to the information contained within the note please contact the signing provider directly. Images from the original note were not included. [facility] Geriatric Medicine Inpatient Consult Service Admission Date: 11/30/2024 Assessment Principal Problem: Dementia, unspecified dementia severity, unspecified dementia type, unspecified whether behavioral, psychotic, or mood disturbance or anxiety (HCC) Active Problems: Moderate malnutrition (CMS/HCC) (HCC) Debility At risk for delirium Plan Debility -Contributing factors include: physical deconditioning, Dementia, arthritis, moderate malnutrition -Lives with sister Julianne who assists with ADLs and IADLs -Concern for poor condition of home. Social work made APS referral. -Uses a walker and a wheelchair for longer distance -Dietary consulted -Physical Therapy and Occupational Therapy recommend SNF -Sister is agreeable with plan for SNF with goal to return home if patient able to ambulate 12/03: Stable plan. Ancipitate discharge to SNF when medically ready Dementia -Due to impaired insight and cognition, her NOK/POA should assist with discharge planning -Previously diagnosed per PCP records. -Recommend [facility] for geriatric cognitive evaluation when in usual state of health. Referral placed. 12/03: She appears at her cognitive baseline today Depression -Continue home Sertraline 50 mg daily 12/03: no reports of poor mood. Continue sertraline At Risk for Delirium -12/03: She does not appear delirious today -If antipsychotics are necessary for agitation, recommend seroquel 12.5 mg BID prn agitation (first line) and haldol 0.5 mg IM q6hr prn agitation (2nd line) -qtc 470 -Risk factors include: age, dementia, NORI, possible infection -Delirium Protocol -Melatonin nightly insomnia -Avoid sedating/anticholinergic medications -Encourage family visits -Encourage sleep hygiene -Minimize barriers to nutrition -Optimize sensory input and access to assistive devices where indicated -Encourage time up in chair - including at meals - as able -Unless contraindicated, encourage regular ambulation with assistance -D/c Phillips, restraints, IV lines, as able -Notified primary patient no longer on Amlodipine at home Vitamin D insufficiency --Vit D 25 --Continue Vit D3 2,000 units daily 12/03: stable plan Follow-up: will follow with you Subjective Chief Complaint: weakness Geriatrics consulted for Dementia, agitation HPI- The patient is known to me. 89 y.o. year-old female with past medical history of arthritis, dementia, malnutrition, chronic kidney disease, hypertension who presented to hospital with failure to thrive. She lives with her sister and was reported to have difficulty ambulating. House cluttered with smell of urine. CT head - chronic microvascular change. Trouble moving right leg. Xray of knee showed degenerative change, small knee joint effusion. Pelvic xray with degenerative changes. 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 Ultrasound-guided FNA suggested. Also, noted with NORI. Reviewed today's primary team progress note - more alert and awake. Reviewed yesterday's nephrology consult note - Nori likely ATN from IV contrast dye CMP: BUN 57, Creatinine 1.69, albumin 2.4 Interval History: She is feeling well. Says she slept well. Appetite OK. Denies pain or feeling sick Review of Systems Constitutional: Negative for fever. Respiratory: Negative for shortness of breath. Cardiovascular: Negative for leg swelling. Gastrointestinal: Negative for abdominal pain, constipation, diarrhea and nausea. Genitourinary: Negative for dysuria. Musculoskeletal: Negative for arthralgias and myalgias. Psychiatric/Behavioral: Positive for confusion (chronic). Objective BP 140/73 (BP Location: Left arm, Patient Position: Lying) Pulse 83 Temp 36.6 C (97.8 F) (Temporal) Resp 16 Ht 5' 4" (1.626 m) Wt 161 lb 14.4 oz (73.4 kg) SpO2 95% BMI 27.79 kg/m No intake or output data in the 24 hours ending 12/03/24 1125 Wt Readings from Last 3 Encounters: 11/30/24 161 lb 14.4 oz (73.4 kg) 07/14/23 151 lb (68.5 kg) 08/01/22 183 lb (83 kg) Current Medications[1] Physical Exam Constitutional: General: She is not in acute distress. Appearance: She is not ill-appearing. HENT: Head: Normocephalic and atraumatic. Neck: Cardiovascular: Rate and Rhythm: Normal rate and regular rhythm. Heart sounds: No murmur heard. No friction rub. No gallop. Pulmonary: Effort: Pulmonary effort is normal. Breath sounds: Normal breath sounds. No decreased breath sounds, wheezing, rhonchi or rales. Comments: Auscultated anteriorly only Abdominal: General: There is no distension. Palpations: Abdomen is soft. Tenderness: There is no abdominal tenderness. There is no guarding or rebound. Musculoskeletal: Right lower leg: No edema. Left lower leg: No edema. Comments: Decreased movement of bilateral lower extremities, right worse than left Neurological: Mental Status: She is alert. Comments: Psychiatric: Attention and Perception: Attention normal. Mood and Affect: Affect normal. Cognition and Memory: Cognition is impaired. Memory is impaired. Comments: Impaired insight Labs and Imaging: Recent Results (from the past 24 hours) Blood culture Site #1 - Suspected Infection Collection Time: 12/02/24 12:10 PM Specimen: Blood, Venous Result Value Ref Range Blood Culture Blood culture incubation started Blood culture Site #2 - Suspected Infection Collection Time: 12/02/24 12:10 PM Specimen: Blood, Venous Result Value Ref Range Blood Culture Blood culture incubation started Transthoracic echocardiogram (TTE) complete with contrast, bubble, strain, and 3D PRN Collection Time: 12/02/24 12:20 PM Result Value Ref Range IVSd 0.9 0.6 - 0.9 cm LVIDd 3.5 (A) 3.9 - 5.3 cm LVIDs 2.7 cm LVOT Diameter 2.0 cm LVPWd 0.8 0.6 - 0.9 cm EF BP 58 55 - 100 % LV Ejection Fraction A2C 56 % LV Ejection Fraction A4C 58 % LV EDV A2C 49 mL LV EDV A4C 83 mL LV EDV BP 65 56 - 104 mL LV ESV A2C 21 mL LV ESV A4C 35 mL LV ESV BP 27 19 - 49 mL LVOT Cardiac Output 5.7 liter/minute LVOT Peak Gradient 6 mmHg LVOT Mean Gradient 4 mmHg LVOT SV 90.1 ml LVOT Peak Velocity 1.2 m/s LVOT VTI 28.7 cm RV Longitudinal Dimension 6.5 cm RV Mid Dimension 2.5 cm RV Basal Dimension 3.4 cm RV Free Wall Peak S' 8 cm/s LA Diameter 2.5 cm LA Volume A/L 62 mL LA Volume 2C 56 (A) 22 - 52 mL LA Volume 4C 53 (A) 22 - 52 mL LA Volume BP 58 (A) 22 - 52 mL AV Area by Peak Velocity 2.9 cm2 AV Area by VTI 2.9 cm2 AV Peak Gradient 8 mmHg AV Mean Gradient 4 mmHg AV Peak Velocity 1.5 m/s AV Mean Velocity 1.0 m/s AV VTI 29.3 cm MV A Velocity 0.98 m/s MV E Wave Deceleration Time 348.1 ms MV E Velocity 0.86 m/s LV E' Lateral Velocity 7 cm/s LV E' Septal Velocity 3 cm/s TAPSE 1.6 (A) >=1.7 cm TR Peak Gradient 19 mmHg TR Max Velocity 2.17 m/s Ascending Aorta 3.1 cm Pulm Vein A Velocity 0.2 m/s Pulm Vein A Duration 134.2 ms Pulm Vein Peak D Velocity 0.4 m/s Pulm Vein Peak S Velocity 0.5 m/s Fractional Shortening 2D 23 28 - 44 % LV ESV Index BP 15 mL/m2 LV EDV Index BP 36 mL/m2 LV ESV Index A4C 20 mL/m2 LV EDV Index A4C 46 mL/m2 LV ESV Index A2C 12 mL/m2 LV EDV Index A2C 27 mL/m2 LVIDd Index 1.96 cm/m2 LVIDs Index 1.51 cm/m2 LV RWT Ratio 0.46 LV Mass 2D 81.9 67 - 162 g LV Mass 2D Index 45.8 43 - 95 g/m2 MV E/A 0.88 E/E' Ratio (Averaged) 20.48 E/E' Lateral 12.29 E/E' Septal 28.67 LA Volume Index BP 32 16 - 34 ml/m2 LA Volume Index A/L 35 16 - 34 mL/m2 Pulm Vein S/D 1.3 LVOT Stroke Volume Index 50.3 mL/m2 LVOT Area 3.1 cm2 LA Volume Index 2C 31 16 - 34 mL/m2 LA Volume Index 4C 30 16 - 34 mL/m2 LA Size Index 1.40 cm/m2 Ascending Aorta Index 1.73 cm/m2 LVOT:AV VTI Index 0.98 DESMOND/BSA VTI 1.6 cm2/m2 Aortic Sinus Valsalva 3.1 cm Aortic Sinus Valsalva Index 1.73 cm/m2 Sinotubular Junction 2.6 cm AV Velocity Ratio 0.80 DESMOND/BSA Peak Velocity 1.6 cm2/m2 Sodium with creatinine, urine, random Collection Time: 12/03/24 2:16 AM Result Value Ref Range SODIUM, URINE 23 mmol/L CREATININE, URINE 138.1 (H) 47.0 - 110.0 mg/dL SODIUM, URINE, FRACTIONAL EXCRETION 0.2 SODIUM, URINE, TUBULAR REABSORPTION 1.0 Complete Urinalysis with reflex to Culture Collection Time: 12/03/24 2:16 AM Result Value Ref Range Color, Urine Yellow Lt. Yellow Clarity, Urine Clear Clear pH, Urine 5.5 5.0 - 8.0 pH Leukocytes, Urine 250 (A) Negative Dieter/uL Nitrite, Urine Negative Negative Protein, Urine 10 (A) Negative mg/dL Glucose, Urine Normal Normal (<70) mg/dL Bilirubin, Urine Negative Negative mg/dL Ketones, Urine Negative Negative mg/dL Urobilinogen, Urine 2 (A) Normal (0-1) mg/dL Blood, Urine Negative Negative mg/dL RBC, Urine 3-5 (A) 0 - 2 /HPF WBC, Urine 3-5 0 - 5 /HPF Squamous Epithelial, Urine 0-2 3 - 5 /HPF Bacteria, Urine Few (A) Negative /HPF Mucus, Urine Few Negative /LPF Hyaline Casts, Urine 0-2 (A) Negative /LPF SPECIFIC GRAVITY OF URINE (NUMERIC) 1.030 1.005 - 1.030 CBC auto differential Collection Time: 12/03/24 4:04 AM Result Value Ref Range Auto WBC 6.4 3.6 - 10.7 10*3/uL RBC 4.30 3.80 - 5.20 10*6/uL Hemoglobin 11.7 11.7 - 16.0 g/dL Hematocrit 36.5 35.0 - 47.0 % MCV 84.9 77.0 - 99.0 fL MCH 27.2 26.0 - 34.0 pg MCHC 32.1 30.5 - 36.0 % RDW 14.0 11.5 - 15.0 % Platelets 303 140 - 440 10*3/uL MPV 10.4 9.0 - 12.7 fL nRBC 0.0 0.0 - 2.0 /100 WBCs Neutrophils Relative 55.7 38.0 - 82.0 % Lymphocytes Relative 24.5 15.0 - 45.0 % Monocytes Relative 11.9 5.0 - 13.0 % Eosinophils Relative 5.8 0.0 - 6.0 % Basophils Relative 1.6 0.0 - 2.0 % Immature Grans % 0.5 0.0 - 2.0 % Neutrophils Absolute 3.6 1.8 - 7.5 10*3/uL Lymphocytes Absolute 1.6 1.0 - 4.3 10*3/uL Monocytes Absolute 0.8 0.0 - 0.9 10*3/uL Eosinophils Absolute 0.4 0.0 - 0.5 10*3/uL Basophils Absolute 0.1 0.0 - 0.2 10*3/uL Immature Grans Absolute 0.0 <0.1 10*3/uL Comprehensive metabolic panel Collection Time: 12/03/24 4:04 AM Result Value Ref Range SODIUM 138 136 - 145 mmol/L POTASSIUM 4.2 3.5 - 5.1 mmol/L CHLORIDE 103 98 - 107 mmol/L CARBON DIOXIDE 23 23 - 31 mmol/L ANION GAP 12 3 - 13 mmol/L UREA NITROGEN 57 (H) 9 - 23 mg/dL CREATININE 1.69 (H) 0.57 - 1.11 mg/dL GLUCOSE 124 (H) 82 - 115 mg/dL CALCIUM 8.5 (L) 8.8 - 10.0 mg/dL AST (SGOT) 27 <34 U/L ALT 10 <30 U/L ALKALINE PHOSPHATASE 75 40 - 150 U/L ALBUMIN 2.4 (L) 3.4 - 4.8 g/dL BILIRUBIN, TOTAL 0.3 <1.2 mg/dL TOTAL PROTEIN 6.0 (L) 6.4 - 8.3 g/dL eGFR 29.1 (L) >60.0 mL/min/1.73m*2 Lab Results Component Value Date TSH 0.98 12/02/2024 Lab Results Component Value Date [id number] 633 12/01/2024 Lab Results Component Value Date VITD25 25 12/02/2024 [1] Current Facility-Administered Medications: acetaminophen (Tylenol) tablet 650 mg, 650 mg, Oral, q6h PRN OR acetaminophen (Tylenol) suppository 650 mg, 650 mg, Rectal, q6h PRN, Freddie Bernard MD aspirin EC tablet 81 mg, 81 mg, Oral, Daily, Freddie Bernard MD, 81 mg at 12/03/24918 [START ON 12/04/2024] cholecalciferol (Vitamin D-3) tablet 2,000 Units, 2,000 Units, Oral, Daily, Melissa Quintanilla APRN - RATE ENGINEER enoxaparin (Lovenox) syringe 40 mg, 40 mg, SubCUTAneous, Daily, Freddie Bernard MD, 40 mg at 12/03/24919 melatonin tablet 3 mg, 3 mg, Oral, Nightly PRN, Freddie Bernard MD melatonin tablet 3 mg, 3 mg, Oral, Nightly, Victorino Barnes MD, 3 mg at 12/02/242108 metoprolol tartrate (Lopressor) tablet 25 mg, 25 mg, Oral, BID, Victorino Barnes MD, 25 mg at 12/03/24918 ondansetron ODT (Zofran-ODT) disintegrating tablet 4 mg, 4 mg, Oral, q8h PRN OR ondansetron (Zofran) injection 4 mg, 4 mg, IntraVENous, q6h PRN, Freddie Bernard MD pantoprazole (ProtoNix) EC tablet 40 mg, 40 mg, Oral, qAM AC, Freddie Bernard MD, 40 mg at 12/03/24617 polyethylene glycol (PEG) 3350 (Miralax) packet 17 g, 17 g, Oral, Daily PRN, Freddie Bernard MD sertraline (Zoloft) tablet 50 mg, 50 mg, Oral, Daily, Melissa Quintanilla APRN - DILEEP, 50 mg at 12/03/24918 therapeutic multivitamin-minerals (Theragran-M) tablet, 1 tablet, Oral, Daily, Freddie Bernard MD, 1 tablet at 12/03/24918 Images from the original note were not included. PHYSICAL THERAPY [facility] Treatment Note Name/MRN: Yelena Chandra ([id number]) Date of : 1935 Age: 89 y.o. Room/Bed: B2-260/B2-260 A Visit #: 2 out of 7 visits Discharge Recommendation: Nursing Home Facility Equipment Needed: No Other: TBD at next level of care Assessment Pt is progressing toward PT goals and demos decreased assistance for transfers/gait since last session. Pt completed bed mobility with modA, transfers with Ezekiel, and ambulation with FWW with Ezekiel. Pt is limited by generalized weakness, balance, and impaired cognition. Pt will benefit from continued skilled PT to maximize functional potential. Recommend SNF. Subjective Patient pleasant and agreeable to therapy. Handoff to OT Pain: Pt denies any current pain. Medical Precautions: No active isolations Proper PPE donned/doffed in accordance with facility standards. Fall Risk: Velarde Fall Risk Score: 60 (High Risk) Precautions/Restrictions: N/A Overall Cognitive Status: Exceptions - Following commands: follows one step commands with increased time and follows one step commands with repetition - Memory: decreased short term memory - Safety judgement: decreased awareness of need for safety - Problem solving: assistance required to generate solutions, assistance required to implement solutions, assistance required to identify errors made, assistance required to correct errors made, and decreased awareness of errors - Insights: decreased awareness of deficits - Sequencing: requires cues for some Family/Caregiver Present: none Objective Bed Mobility Supine to sit: Mod Assist HOB elevated and use of bed rail. Pt required cues for proper sequencing. Increased time to perform. ModA required to scoot hips fwd and bring trunk upright. No complaints of dizziness with positional changes. Transfers/Mobility Sit to stand: Min Assist Stand to sit: Min Assist From EOB x3 trials. Cues for proper hand placement. Pt required Ezekiel overall for stability when ascending/descending. Limited carryover demonstrated. Continued edu warranted to improve safety of transfers. Pt completed static standing and weight shifting in prep for ambulation. Device(s) used: Front wheeled walker Ambulation Ambulation 1 Assistive device(s) used: Front wheeled walker Assist level: Min Assist Distance (ft): 20' x1 Quality of gait: reciprocal stepping, slow kathleen, instability through all phases. Pt demos decreased stride length/toe clearance and general unsteadiness. Cues to improve posture and for safety with FWW. Pt demos decreased overall safety awareness. No LOB noted. Pt fatigues fairly quickly with ambulation. Pt also completed side stepping (~5' in each direction x2 trials) along EOB with FWW Ezekiel in prep for ambulation. Plan Continue acute PT per plan of care. Safety/Education Safety Safety Devices in place: All fall risk precautions in place, call light within reach, gait belt, patient at risk for falls, no alarms engaged upon entry, and left with OT Restraints: No Education Education Given To: patient Education Provided: PT Role, PT Goals, Gait Training, Plan of Care, and Transfer Training Education Method: Verbal Barriers to Learning: Cognition Education Outcome: Verbalized Understanding and Continued Education Needed Outcome Measures AM-PAC AM-PAC Inpatient Mobility Raw Score (No Stairs) : 13 JH-HLM JH-HLM Score: Walked 10 steps or more (i.e. walked to restroom) Goals Patient Stated Goal: None stated Encounter Problems Encounter Problems (Active) Balance Patient will maintain dynamic standing balance for 5 minutes with min assist in order to demonstrate decreased risk of falling. (Progressing) Start: 12/01/24 Expected End: 12/11/24 Exercise Patient will complete lower extremity exercises for 1-2 sets / 10-15 reps in order to improve strength and activity tolerance for mobility. (Not Addressed) Start: 12/01/24 Expected End: 12/11/24 Mobility Patient will ambulate 25 feet with CGA and least restrictive device in order to improve safety and independence with mobility. (Progressing) Start: 12/01/24 Expected End: 12/11/24 Pain - Adult Transfers Patient will perform bed mobility with CGA in order to improve independence and prepare for out of bed mobility. (Progressing) Start: 12/01/24 Expected End: 12/11/24 Patient will complete functional transfer with least restrictive device with CGA in order to prepare for ambulation. (Progressing) Start: 12/01/24 Expected End: 12/11/24 Therapy Time Individual Co-treatment Time In 1043 Time Out 1058 Minutes 15 Timed Code Treatment Minutes: 15 Minutes (x1 ther act) Mylene Gardner PTA Cosigned by Jessica Abrams, PT at 12/03/2024 3:58 PM EDT Hospitalist Progress Note 12/03/2024 Subjective: Admit Date: 11/30/2024 PCP: Yenifer Schulz DO Room#: B2-260/B2-260 A BRIEF HOSPITAL COURSE: Admitted for dementia with behavioral changes, failure to thrive. Interval History: Seen and examined. More alert and awake No pain Moving all 4 extremities without significant pain. Urine culture- no growth. BC pending Adult diet Dysphagia - Soft and Bite Sized; Low Sodium (2 gm) 24HR INTAKE/OUTPUT: No intake or output data in the 24 hours ending 12/03/24 1047 Past Medical History: Medical History[1] LABS: CBC: Recent Labs 11/30/24224412/02/2451812/03/24 0404 WBC 12.6* 8.8 6.4 RBC 5.36* 4.26 4.30 HGB 14.5 11.4* 11.7 HCT 44.1 35.9 36.5 MCV 82.3 84.3 84.9 RDW 13.9 14.1 14.0 PLT 318 316 303 BMP: Recent Labs 11/30/24224412/02/2419 12/03/24 0404 NA 140 139 138 K 3.5 3.3* 4.2 CL 101 105 103 CO2 24 24 23 BUN 25* 47* 57* CREATININE 1.26* 1.92* 1.69* GLUCOSE 120* 132* 124* CALCIUM 9.7 8.4* 8.5* ANIONGAP 15* 10 12 LIVER PROFILE: Recent Labs 11/30/24224412/02/2419 12/03/24 0404 AST 22 29 27 ALT 9 9 10 BILITOT 1.3* 0.4 0.3 ALKPHOS 103 83 75 PROT 7.6 6.1* 6.0* PT/INR: No results for input(s): "PROTIME", "INR" in the last 72 hours. CARDIAC ENZYMES: No results for input(s): "TROPONINI" in the last 72 hours. Procalcitonin: Lab Results Component Value Date PROCAL 2.84 (H) 12/02/2024 COVID-19 PCR: No results for input(s): "COVID19" in the last 72 hours. Objective: Vitals: BP 140/73 (BP Location: Left arm, Patient Position: Lying) Pulse 83 Temp 36.6 C (97.8 F) (Temporal) Resp 16 Ht 5' 4" (1.626 m) Wt 161 lb 14.4 oz (73.4 kg) SpO2 95% BMI 27.79 kg/m Pulse Ox: SpO2 Av.8 % Min: 95 % Max: 96 % Supplemental O2: Physical Exam Constitutional: Appearance: Normal appearance. Cardiovascular: Rate and Rhythm: Normal rate and regular rhythm. Heart sounds: Normal heart sounds. Pulmonary: Effort: Pulmonary effort is normal. Breath sounds: Normal breath sounds. Abdominal: General: Bowel sounds are normal. Palpations: Abdomen is soft. Musculoskeletal: Right lower leg: No edema. Left lower leg: No edema. Neurological: General: No focal deficit present. Mental Status: She is alert. Medications: Scheduled PRN Scheduled Meds[2] PRN Meds[3] Continuous Continuous Meds[4] Assessment Data: (CAT1) Reviewed 1 notes from different specialty or health system (each=1). (LOW: 2x CAT1 or independent historian MOD: 3x CAT1 or 1x CAT3 EXTENSIVE: 3x CAT1 and 1x CAT3) Acute, acute on chronic, unstable/uncontrolled chronic problems/diagnoses: Dementia with behavioral changes -improved and likely at baseline, alert , awake and answers questions appropriately. Geriatrics consulted and started on scheduled Zoloft 50 mg daily. Failure to thrive - lives with sister, PT/OT and likely placement [facility] with underlying mild CKD- likely from dehydration, had contrast exposure in ED, CT abdomen - no hydronephrosis, calculi- gentle hydration. . CK normal . Improving slowly - monitor Hypomagnesemia- replaced Elevated HS troponin - tending down, no chest pain, EKG- right BBB- similar to previous EKG. CTA chest negative for PE. ECHO- normal EF, no wall motion abnormality. 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 USG done - reviewed- will follow up as an outpatient Pain right knee- x ray right knee and pelvis with OA, no significant effusion at knee joint. ROM + HTN- not on amlodipine at home, will DC. Metoprolol 25 mg BID. Elevated procal/CRP- check BC, no sign of infection. Hypokalemia - replace Stable chronic problems affecting care, new non-acute diagnoses: Plan As a result of the above findings & factors, the following mgmt was pursued: - overall improving - stable mental status - speech eval - modified diet - creatinine improving slowly, encourage oral intake - labs in am - am labs, replace lytes prn - PT/OT/CM/SW - delirium precautions: increase activity - DVT prophylaxis: enoxaparin and encourage ambulation Advance Directive: Full Code Anticipated Discharge Extended Emergency Contact Information Primary Emergency Contact: Julianne Bravo Mobile Relation: Sister Preferred language: [place] [employer] Assistant needed? No Victorino Barnes MD Division of Hospitalist Medicine [employer] [1] Past Medical History: Diagnosis Date Anxiety Arthritis Hypertension [2] aspirin, 81 mg, Oral, Daily [START ON 12/04/2024] cholecalciferol, 2,000 Units, Oral, Daily enoxaparin, 40 mg, SubCUTAneous, Daily melatonin, 3 mg, Oral, Nightly metoprolol tartrate, 25 mg, Oral, BID pantoprazole, 40 mg, Oral, qAM AC sertraline, 50 mg, Oral, Daily therapeutic multivitamin-minerals, 1 tablet, Oral, Daily [3] PRN medications: acetaminophen OR acetaminophen, melatonin, ondansetron ODT OR ondansetron, polyethylene glycol (PEG) 3350 [4] Images from the original note were not included. Speech-Language Pathology SPEECH LANGUAGE PATHOLOGY [facility] Dysphagia Treatment Note Patient Name: Yelena Chandra Evaluation Date: 12/03/2024 Date of : 1935 Admission Date: 11/30/2024 10:21 PM Age: 89 y.o. 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 Seen upright in bed, after assist with repositioning. Answers few basic questions with clear vocal quality. Baseline throat clearing as soon as sitting upright. Follows all basic commands. No visitors at bedside. Spoke with MITA Chapa who cleared pt for treatment. Current Diet: Dietary Orders (From admission, onward) Start Ordered 12/02/24 1545 SnacksPM Snack; vesta Ensure High Protein Until discontinued Question Answer Comment Frequency PM Snack Comment vesta Ensure High Protein 12/02/24 1544 12/01/24 0801 Adult diet Regular; Low Sodium (2 gm) Diet effective now Question Answer Comment Diet type Regular Sodium restriction: Low Sodium (2 gm) 12/01/24 0800 Oxygen: Oxygen Therapy: None (Room air) I am ready to eat Pain: Pt denies any current pain. PPE Worn: gloves Objective & Assessment Dysphagia Treatment # of Activities: 2 Dysphagia Activity 1: Assess tolerance of recommended diet Dysphagia Activity 2: Reminder of swallowing strategies Pt noted to have baseline throat clearing. Non-productive. She was ready for breakfast. Pt with poor recall of previous situation and unable to state were she lived, who with or if she has an upper denture. Few lower teeth. Pt demonstrates functional acceptance of po diet after set up and cut up. Pt will take multiple bite in a row, that are small. Good oral clearing given additional time. Minimal cues to ensure oral clearing. Pt did start to use liquid wash independently between swallows. Noted continued intermittent throat clearing. H/o + transient penetration without true vocal cord contact and presbyphagia. Pt also demonstrated intermittent pauses for belching. If current strategies are not effective alone, consider repeat MBSS. Last MBS remotely on chart. Pt with poor recall and needs assist with set up. Suggest Soft and bite sized diet to assist with oral preparation and clearing. Pt is able to manage soft bread items overtly (such as banana bread, pancake, swazi toast), however not allowed on soft and bite sized which is recommended for ease of preparation and oropharyngeal/esophageal clearing. Plan & Recommendations Plan: Continue current dysphagia POC. Recommend Soft and bite-sized solids and Thin liquids and meds as tolerated with sips, place in puree as needed and the following precautions: - Upright positioning for all PO intake - Slow rate of intake - Small bites/sips - Alternate solid and liquids as needed D/C Recommendations: to be determined Education Education Given: swallowing strategies, diet recommendations Given To: patient Response: demonstrated understanding Goals Patient Stated Goal: To eat more of the banana bread. Encounter Problems Encounter Problems (Active) Swallowing Patient will tolerate the least restrictive diet consistency to allow for safe consumption of daily meals (Progressing) Start: 12/02/24 Expected End: 12/16/24 Patient will demonstrate safe swallowing Intervention/techniques (Progressing) Start: 12/02/24 Expected End: 12/16/24 Patient will use appropriate strategies for increased oralpharyngeal swallow function (Progressing) Start: 12/02/24 Expected End: 12/16/24 Therapy Time GAS COMPRESSOR TURBINE OPERATOR Individual Minutes Time In: 826 Time Out: 845 Minutes: 19 MILTON Hernández Images from the original note were not included. OCCUPATIONAL THERAPY [facility] Treatment Note Name/MRN: Yelena Chandra ([id number]) Date of : 1935 Age: 89 y.o. Room/Bed: B2-260/B2-260 A Visit #: 1 out of 5 Discharge Recommendation: Nursing Home Facility Equipment Needed: No Assessment Pt seen for OT treatment this date focusing on functional transfers / mobility, LB dressing, hand hygiene, and bathroom level toileting. No true LOB with OOB activity at this time, however increased cueing required this date for sequencing and initiation. She was able to complete transfers with MIN A - CGA this date, short mobility with MIN A overall, toileting with MIN A, and LB dressing with MIN A overall this date. She is limited by diminished cognition, increased fatigue, and increased instability at this time. Increased time required to complete all functional tasks. She would benefit from continued skilled OT services to improve her endurance, independence, and safety at this time. Continue to recommend planned discharge for SNF this date. Subjective Pleasant and cooperative. Agreeable to therapy treatment at this time. Pain: Pt denies any current pain. Medical Precautions: No active isolations Proper PPE donned/doffed in accordance with facility standards. Fall Risk: Velarde Fall Risk Score: 60 (High Risk) Precautions/Restrictions: N/A Family/Caregiver Present: none Objective ADLs LE Dressing: Min Assist Toileting: Min Assist Increased time required to complete all functional tasks this date. No true LOB noted during completion, however increased noted posterior lean with OOB activity at this time. She was able to complete LB dressing this date with MIN A overall. She was able to thread LLE through hospital briefs with no physical assist, and required increased assist for RLE management this date. She was able to manage briefs over hips anteriorly, however required increased assist from therapist to manage posteriorly over buttocks. She required increased cueing for sequencing and initiation during completion of dressing tasks. She was able to complete bathroom level toileting with MIN A overall this date. No physical assist clothing management to doff briefs. She was able to complete pericare without physical assist. She required MIN A for clothing management to don briefs over buttocks again. Increased reliance on grab bars and FWW for stability during standing ADLs. She completed hand hygiene at sink level with good FWW management and CGA overall for stability. Bed Mobility Supine to sit: SBA Sit to supine: SBA Scooting: SBA HOB elevated. Increased time to complete. Denies dizziness with positional changes. Increased reliance on bed rails to complete. No physical assist for BLE management or trunk control. Transfers/Mobility Sit to stand: Min Assist Stand to sit: Contact Guard Toilet: Contact Guard Functional mobility: Contact Guard, Min Assist Pt completed sit<>stands x3 this date, progressing from MIN A to CGA on final attempt. Pt completed sit<>stands x2 from EOB to FWW this date with MIN A overall for lift into standing. Increased cueing this date for sequencing, initiation, and proper hand placement / BLE management for proper GILLIAN. Denies dizziness with positional changes. She completed short mobility in room with MIN A - CGA fluctuating. Occasional posterior lean noted during mobility this date with increased assist from therapist to correct. Cueing for proper FWW management required throughout. She was able to complete toilet transfer with CGA overall and increased cueing for use of grab bars for increased stability. Good BLE management noted during completion. Device(s) used: Front wheeled walker Cognition - Following commands: follows one step commands with increased time, follows one step commands with repetition, follows multi-step commands with increased time, and follows multi-step commands with repetition - Attention span: difficulty attending to directions - Memory: decreased recall of recent events and decreased short term memory - Safety judgement: decreased awareness of need for assistance and decreased awareness of need for safety - Problem solving: assistance required to generate solutions, assistance required to implement solutions, assistance required to identify errors made, and assistance required to correct errors made - Insights: not aware of deficits - Initiation: requires cues for some - Sequencing: requires cues for some Plan Continue acute OT per plan of care. Safety/Education Safety Safety Devices in place: All fall risk precautions in place, call light within reach, left in bed, bed alarm in place, gait belt, patient at risk for falls, and nurse notified Restraints: No Education Education Given To: patient Education Provided: OT Role, Plan of Care, ADL Adaptive Strategies, Transfer Training, Equipment, Fall Prevention Education, Discharge Recommendations, and Benefits of Increasing Activity Education Method: Verbal, Demonstration, and Teach Back Barriers to Learning: Cognition Education Outcome: Continued Education Needed AM-PAC AM-PAC Inpatient Daily Activity Raw Score: 21 ADL Inpatient CMS G-Code Modifier: CJ Goals Patient Stated Goal: none stated at this time. Encounter Problems Encounter Problems (Active) Balance Patient will maintain dynamic standing balance for 3 minutes with modified independence in order to demonstrate decreased risk of falling. (Progressing) Start: 12/01/24 Expected End: 12/06/24 Dressing Upper Extremities Pt will perform UB Adls and grooming tasks with set-up assist at EOB (Progressing) Start: 12/01/24 Expected End: 12/06/24 Dressings Lower Extremities Patient will dress lower body with Mod I (Progressing) Start: 12/01/24 Expected End: 12/06/24 Mobility Pt will perform functional mobility and transfers with FWW and mod I (Progressing) Start: 12/01/24 Expected End: 12/06/24 Toileting Patient will complete toileting tasks at standard toilet with modified independence. (Progressing) Start: 12/01/24 Expected End: 12/06/24 Therapy Time Individual Co-treatment Time In 1443 Time Out 1512 Minutes 29 Timed Code Treatment Minutes: 29 Minutes (ADL x2) Benjamin Pryor OT Portions of the information within this encounter were entered using an electronic dictation system. Best attempts were made to edit/proofread the information prior to note completion. Despite the review of information, some errors may remain. If there are questions related to the information contained within the note please contact the signing provider directly. Hospitalist Progress Note 12/02/2024 Subjective: Admit Date: 11/30/2024 PCP: Yenifer Schulz DO Room#: B2-260/B2-260 A BRIEF HOSPITAL COURSE: Admitted for dementia with behavioral changes, failure to thrive. Interval History: Seen and examined. Comfortable Alert , awake and able to answer questions appropriately Afebrile Adult diet Regular; Low Sodium (2 gm) 24HR INTAKE/OUTPUT: Intake/Output Summary (Last 24 hours) at 12/02/2024 1429 Last data filed at 12/02/2024 0824 Gross per 24 hour Intake 300 ml Output 225 ml Net 75 ml Past Medical History: Medical History[1] LABS: CBC: Recent Labs 11/30/24224412/02/24 0519 WBC 12.6* 8.8 RBC 5.36* 4.26 HGB 14.5 11.4* HCT 44.1 35.9 MCV 82.3 84.3 RDW 13.9 14.1 PLT 318 316 BMP: Recent Labs 11/30/24224412/02/24 0519 NA 140 139 K 3.5 3.3* CL 101 105 CO2 24 24 BUN 25* 47* CREATININE 1.26* 1.92* GLUCOSE 120* 132* CALCIUM 9.7 8.4* ANIONGAP 15* 10 LIVER PROFILE: Recent Labs 11/30/24224412/02/24 0519 AST 22 29 ALT 9 9 BILITOT 1.3* 0.4 ALKPHOS 103 83 PROT 7.6 6.1* PT/INR: No results for input(s): "PROTIME", "INR" in the last 72 hours. CARDIAC ENZYMES: No results for input(s): "TROPONINI" in the last 72 hours. Procalcitonin: Lab Results Component Value Date PROCAL 2.84 (H) 12/02/2024 COVID-19 PCR: No results for input(s): "COVID19" in the last 72 hours. Objective: Vitals: BP 118/64 Pulse 66 Temp 36.8 C (98.2 F) (Temporal) Resp 18 Ht 5' 4" (1.626 m) Wt 161 lb 14.4 oz (73.4 kg) SpO2 96% BMI 27.79 kg/m Pulse Ox: SpO2 Av.3 % Min: 95 % Max: 96 % Supplemental O2: Physical Exam Constitutional: Appearance: Normal appearance. Cardiovascular: Rate and Rhythm: Normal rate and regular rhythm. Heart sounds: Normal heart sounds. Pulmonary: Effort: Pulmonary effort is normal. Breath sounds: Normal breath sounds. Abdominal: General: Bowel sounds are normal. Palpations: Abdomen is soft. Musculoskeletal: Right lower leg: No edema. Left lower leg: No edema. Neurological: General: No focal deficit present. Mental Status: She is alert. Medications: Scheduled PRN Scheduled Meds[2] PRN Meds[3] Continuous Continuous Meds[4] Assessment Data: (CAT1) Reviewed 1 notes from different specialty or health system (each=1). (LOW: 2x CAT1 or independent historian MOD: 3x CAT1 or 1x CAT3 EXTENSIVE: 3x CAT1 and 1x CAT3) Acute, acute on chronic, unstable/uncontrolled chronic problems/diagnoses: Dementia with behavioral changes - much more alert and awake today, no sign of infection. Failure to thrive NORI- likely from dehydration, had contrast exposure in ED, CT abdomen - no hydronephrosis, calculi- gentle hydration. Consult nephrology . CK normal Hypomagnesemia- replaced Elevated HS troponin - tending down, no chest pain, EKG- right BBB- similar to previous EKG. CTA chest negative for PE. ECHO- normal EF, no wall motion abnormality. 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 USG done - reviewed- will follow up as an outpatient Unable to move right leg due to pain- mostly in knee, get X ray knee and pelvis. HTN- not on amlodipine at home, nargis DC. Metoprolol 25 mg BID. Elevated procal/CRP- check BC, no sign of infection. Hypokalemia - replace Stable chronic problems affecting care, new non-acute diagnoses: Plan As a result of the above findings & factors, the following mgmt was pursued: - appears much more alert today - geriatrics consult appreciated- start on Seroquel - will consult nephrology , monitor renal function. - labs in am - am labs, replace lytes prn - PT/OT/CM/SW - delirium precautions: increase activity - DVT prophylaxis: enoxaparin and encourage ambulation Advance Directive: Full Code Anticipated Discharge Extended Emergency Contact Information Primary Emergency Contact: Julianne Bravo Mobile Relation: Sister Preferred language: [place] [employer] Assistant needed? No Victorino Barnes MD Division of Hospitalist Medicine [facility] [1] Past Medical History: Diagnosis Date Anxiety Arthritis Hypertension [2] aspirin, 81 mg, Oral, Daily [START ON 12/04/2024] cholecalciferol, 2,000 Units, Oral, Daily enoxaparin, 40 mg, SubCUTAneous, Daily melatonin, 3 mg, Oral, Nightly metoprolol tartrate, 25 mg, Oral, BID pantoprazole, 40 mg, Oral, qAM AC [START ON 12/03/2024] sertraline, 50 mg, Oral, Daily therapeutic multivitamin-minerals, 1 tablet, Oral, Daily [3] PRN medications: acetaminophen OR acetaminophen, melatonin, ondansetron ODT OR ondansetron, polyethylene glycol (PEG) 3350 [4] lactated Ringer's, 100 mL/hr, Last Rate: 100 mL/hr (12/02/24 0827) [facility] Geriatric Medicine Inpatient Consult Service Admission Date: 11/30/2024 Assessment Principal Problem: Dementia, unspecified dementia severity, unspecified dementia type, unspecified whether behavioral, psychotic, or mood disturbance or anxiety (HCC) Active Problems: Debility At risk for delirium Plan Debility -Contributing factors include: physical deconditioning, Dementia, arthritis -Lives with sister Julianne who assists with ADLs and IADLs -Concern for poor condition of home. Social work made APS referral. -Uses a walker and a wheelchair for longer distance -Dietary consult pending -Physical Therapy and Occupational Therapy recommend SNF -Sister is agreeable with plan for SNF with goal to return home if patient able to ambulate Dementia -Due to impaired insight and cognition, her NOK/POA should assist with discharge planning -Previously diagnosed per PCP records. -B12 WNL TSH WNL -Spoke with sister today - +short term memory loss. Patient needs reminders to bathe and dress. Sister assists will IADLs. -Sister agrees she needs assist with house cleaning -Recommend follow up at [facility]) for geriatric cognitive evaluation when in usual state of health. Referral placed. Depression -Resume home Sertraline 50 mg daily At Risk for Delirium -No agitation. Mild somnolence. Worsening NORI, possible infection. Work up in progress per primary. Check post void residual. Nephrology consult pending. -Reported agitated in ER. -If antipsychotics are necessary for agitation, recommend seroquel 12.5 mg BID prn agitation (first line) and haldol 0.5 mg IM q6hr prn agitation (2nd line) -qtc 470 -Risk factors include: age, dementia, NORI, possible infection -Delirium Protocol -Melatonin nightly insomnia -Avoid sedating/anticholinergic medications -Encourage family visits -Encourage sleep hygiene -Minimize barriers to nutrition -Optimize sensory input and access to assistive devices where indicated -Encourage time up in chair - including at meals - as able -Unless contraindicated, encourage regular ambulation with assistance -D/c Phillips, restraints, IV lines, as able -Notified primary patient no longer on Amlodipine at home Vitamin D insufficiency --Vit D 25 --Start Vit D3 2,000 units daily Follow-up: will follow with you Subjective Chief Complaint: weakness Geriatrics consulted for Dementia, agitation HPI- The patient is known to me. 89 y.o. year-old female with past medical history of arthritis, dementia, malnutrition, chronic kidney disease, hypertension who presented to hospital with failure to thrive. She lives with her sister and was reported to have difficulty ambulating. House cluttered with smell of urine. CT head - chronic microvascular change. Trouble moving right leg. Xray of knee showed degenerative change, small knee joint effusion. Pelvic xray with degenerative changes. 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 Ultrasound-guided FNA suggested. Also, noted with NORI. CT abdomen pending Blood cultures pending ECHO pending Urine culture pending Procal 2.84 CMP: K 3.3, BUN 47 (25 on 12/01), creat 1.92 (1.26 on 12/01), albumin 2.3 CBC: WBC 8.8 (12.6 on 12/01), Hgb 11.4 She was seen by the geriatric service in June 2023. MMSE was a 24/30 at that time. Clock Draw was a 3/7. Her sister had noted short term memory loss. She had been having several falls due to weakness. Interval History: Remains on general medical/surgical floor . Patient sleeping, easily awakened. Not able to state whey she is here. Did not eat breakfast but states she might eat some. Denies pain. Nursing reports no overnight concerns. No behaviors. Spoke with Julianne Bravo sister. Patient doing well until Friday when she could not walk. Normally uses a walker. They were going to go out to eat and she sat down on a step and could not get up. She was incontinent and sister tried to help clean her but she was agitated. No falls. Last a few years ago. Problems with short term memory gradually worsening. She will ask sister to take care of her dog who has been gone for 2 years. Sister assists her getting into shower and needs some assist with dressing. Patient does most of her dressing. Not bathing regularly. May shower every 2 weeks. She will use wet wipes in between. Needs reminders to bathe and change clothes. Eating well. Sister does cooking, shopping, medications (pill box). Not driving. Able to use telephone. Sister says she could use help for house cleaning. Mood usually good except over past month arguing more with brother in law, over past week getting irritable with sister. Sleeps well. Reviewed medications. Not taking Amlodipine for a year. BP has been good on Metoprolol. Takes Sertraline, MVI, ASA, Pantoprazole. Will not take Calcium too big. Seen by PT. Recommending short term SNF for rehab. Review of Systems Respiratory: Negative for shortness of breath. Gastrointestinal: Negative for abdominal pain. Musculoskeletal: Negative for arthralgias. Psychiatric/Behavioral: Negative for sleep disturbance. Objective BP 116/65 Pulse 74 Temp 36.6 C (97.9 F) (Temporal) Resp 18 Ht 5' 4" (1.626 m) Wt 161 lb 14.4 oz (73.4 kg) SpO2 95% BMI 27.79 kg/m Intake/Output Summary (Last 24 hours) at 12/02/2024 0910 Last data filed at 12/01/2024 1847 Gross per 24 hour Intake 240 ml Output 225 ml Net 15 ml Wt Readings from Last 3 Encounters: 11/30/24 161 lb 14.4 oz (73.4 kg) 07/14/23 151 lb (68.5 kg) 08/01/22 183 lb (83 kg) Current Medications[1] Physical Exam Vitals reviewed. Constitutional: Comments: Sleeping, easily awakened - mild somnolence Neck: Comments: Lump left side Cardiovascular: Rate and Rhythm: Normal rate and regular rhythm. Pulmonary: Effort: Pulmonary effort is normal. No respiratory distress. Breath sounds: Normal breath sounds. Abdominal: General: Bowel sounds are normal. There is no distension. Palpations: Abdomen is soft. Tenderness: There is no abdominal tenderness. Musculoskeletal: Right lower leg: No edema. Left lower leg: No edema. Neurological: Mental Status: She is disoriented. Comments: States she is in hospital, month is May. Psychiatric: Attention and Perception: She is inattentive. Mood and Affect: Mood normal. Behavior: Behavior is cooperative. Cognition and Memory: Cognition is impaired. Memory is impaired. Labs and Imaging: Recent Results (from the past 24 hours) Urinalysis complete with reflex to Culture Collection Time: 12/01/24 4:07 PM Result Value Ref Range Color, Urine Yellow Lt. Yellow Clarity, Urine Clear Clear pH, Urine 5.5 5.0 - 8.0 pH Leukocytes, Urine 25 (A) Negative Dieter/uL Nitrite, Urine Negative Negative Protein, Urine 30 (A) Negative mg/dL Glucose, Urine Normal Normal (<70) mg/dL Bilirubin, Urine Negative Negative mg/dL Ketones, Urine Negative Negative mg/dL Urobilinogen, Urine 2 (A) Normal (0-1) mg/dL Blood, Urine 0.03 (A) Negative mg/dL RBC, Urine 6-10 (A) 0 - 2 /HPF WBC, Urine 11-25 (A) 0 - 5 /HPF Squamous Epithelial, Urine Negative 3 - 5 /HPF Bacteria, Urine Few (A) Negative /HPF Mucus, Urine Few Negative /LPF Hyaline Casts, Urine 3-5 (A) Negative /LPF SPECIFIC GRAVITY OF URINE (NUMERIC) >1.030 (H) 1.005 - 1.030 CBC auto differential Collection Time: 12/02/24 5:19 AM Result Value Ref Range Auto WBC 8.8 3.6 - 10.7 10*3/uL RBC 4.26 3.80 - 5.20 10*6/uL Hemoglobin 11.4 (L) 11.7 - 16.0 g/dL Hematocrit 35.9 35.0 - 47.0 % MCV 84.3 77.0 - 99.0 fL MCH 26.8 26.0 - 34.0 pg MCHC 31.8 30.5 - 36.0 % RDW 14.1 11.5 - 15.0 % Platelets 316 140 - 440 10*3/uL MPV 10.5 9.0 - 12.7 fL nRBC 0.0 0.0 - 2.0 /100 WBCs Neutrophils Relative 62.4 38.0 - 82.0 % Lymphocytes Relative 21.5 15.0 - 45.0 % Monocytes Relative 10.2 5.0 - 13.0 % Eosinophils Relative 4.0 0.0 - 6.0 % Basophils Relative 1.4 0.0 - 2.0 % Immature Grans % 0.5 0.0 - 2.0 % Neutrophils Absolute 5.5 1.8 - 7.5 10*3/uL Lymphocytes Absolute 1.9 1.0 - 4.3 10*3/uL Monocytes Absolute 0.9 0.0 - 0.9 10*3/uL Eosinophils Absolute 0.4 0.0 - 0.5 10*3/uL Basophils Absolute 0.1 0.0 - 0.2 10*3/uL Immature Grans Absolute 0.0 <0.1 10*3/uL TSH Collection Time: 12/02/24 5:19 AM Result Value Ref Range THYROID STIMULATING HORMONE 0.98 0.35 - 4.94 uIU/mL Vitamin D Deficiency Screening (Vit D 25) Collection Time: 12/02/24 5:19 AM Result Value Ref Range VIT D 25-OH, TOTAL 25 See comment ng/mL Procalcitonin Test Collection Time: 12/02/24 5:19 AM Result Value Ref Range PROCALCITONIN 2.84 (H) <0.07 ng/mL C-reactive protein Collection Time: 12/02/24 5:19 AM Result Value Ref Range C REACTIVE PROTEIN 205.5 (H) <5.0 mg/L Comprehensive metabolic panel Collection Time: 12/02/24 5:19 AM Result Value Ref Range SODIUM 139 136 - 145 mmol/L POTASSIUM 3.3 (L) 3.5 - 5.1 mmol/L CHLORIDE 105 98 - 107 mmol/L CARBON DIOXIDE 24 23 - 31 mmol/L ANION GAP 10 3 - 13 mmol/L UREA NITROGEN 47 (H) 9 - 23 mg/dL CREATININE 1.92 (H) 0.57 - 1.11 mg/dL GLUCOSE 132 (H) 82 - 115 mg/dL CALCIUM 8.4 (L) 8.8 - 10.0 mg/dL AST (SGOT) 29 <34 U/L ALT 9 <30 U/L ALKALINE PHOSPHATASE 83 40 - 150 U/L ALBUMIN 2.3 (L) 3.4 - 4.8 g/dL BILIRUBIN, TOTAL 0.4 <1.2 mg/dL TOTAL PROTEIN 6.1 (L) 6.4 - 8.3 g/dL eGFR 25.0 (L) >60.0 mL/min/1.73m*2 Magnesium Collection Time: 12/02/24 5:19 AM Result Value Ref Range MAGNESIUM 2.3 1.6 - 2.6 mg/dL CK Collection Time: 12/02/24 5:19 AM Result Value Ref Range CK 31 30 - 185 U/L Lab Results Component Value Date TSH 0.98 12/02/2024 Lab Results Component Value Date [id number] 633 12/01/2024 Lab Results Component Value Date VITD25 25 12/02/2024 Reviewed: allergies, previous encounters, social history, imaging, active problem lists, medications, and labs [1] Current Facility-Administered Medications: acetaminophen (Tylenol) tablet 650 mg, 650 mg, Oral, q6h PRN OR acetaminophen (Tylenol) suppository 650 mg, 650 mg, Rectal, q6h PRN, Freddie Bernard MD [Held by provider] amLODIPine (Norvasc) tablet 5 mg, 5 mg, Oral, Daily, Freddie Bernard MD, 5 mg at 12/01/24922 aspirin EC tablet 81 mg, 81 mg, Oral, Daily, Freddie Bernard MD, 81 mg at 12/02/24826 enoxaparin (Lovenox) syringe 40 mg, 40 mg, SubCUTAneous, Daily, Freddie Bernard MD, 40 mg at 12/02/24827 lactated Ringer's infusion, 100 mL/hr, IntraVENous, Continuous, Victorino Barnes MD, Last Rate: 100 mL/hr at 12/02/24826, 100 mL/hr at 12/02/24826 melatonin tablet 3 mg, 3 mg, Oral, Nightly PRN, Freddie Bernard MD melatonin tablet 3 mg, 3 mg, Oral, Nightly, Victorino Barnes MD, 3 mg at 12/01/242119 metoprolol tartrate (Lopressor) tablet 25 mg, 25 mg, Oral, BID, Victorino Barnes MD, 25 mg at 12/02/24826 ondansetron ODT (Zofran-ODT) disintegrating tablet 4 mg, 4 mg, Oral, q8h PRN OR ondansetron (Zofran) injection 4 mg, 4 mg, IntraVENous, q6h PRN, Freddie Bernard MD pantoprazole (ProtoNix) EC tablet 40 mg, 40 mg, Oral, qAM AC, Freddie Bernard MD, 40 mg at 12/02/24 0516 polyethylene glycol (PEG) 3350 (Miralax) packet 17 g, 17 g, Oral, Daily PRN, Freddie Bernard MD therapeutic multivitamin-minerals (Theragran-M) tablet, 1 tablet, Oral, Daily, Freddie Bernard MD, 1 tablet at 12/02/24826 Speech-Language Pathology SPEECH LANGUAGE PATHOLOGY [facility] Bedside Swallow Evaluation Patient Name: Yelena Chandra Evaluation Date: 12/02/2024 Date of : 1935 Admission Date: 11/30/2024 10:21 PM Age: 89 y.o. Room/Bed: B2-260/-260 A IMPRESSION: S/s oropharyngeal dysphagia. + overt clinical s/s pulmonary compromise with PO. Risk factors for aspiration include dementia with behavioral changes, large mass of left parotid gland, poor dentition, and esophageal issues - small esophageal web. RECOMMENDATION: Recommend Soft and bite-sized solids and Thin liquids and meds as tolerated and the following precautions: - Upright positioning for all PO intake - Slow rate of intake - Small bites/sips - Alternate solid and liquids Dysphagia NOMS: Level 5: Swallowing is safe with minimal diet restrictions and/or occasionally requires minimal cues to use compensatory strategies. The individual may occasionally self-cue. All nutrition and hydration needs are met by mouth. Pt would benefit from skilled acute GAS COMPRESSOR TURBINE OPERATOR services to ensure patient tolerance of the recommended diet. Frequency: 3 days/wk for 2 weeks Barriers: Cognitive deficit Prognosis: good D/C Recommendations: to be determined Subjective Patient alert and cooperative. Seen upright in bed. Answers some basic questions with clear but soft vocal quality. Pt poor historian with poor memory. Follows all basic commands. No visitors at bedside. Spoke with MITA Altamirano who cleared pt to be evaluated. Dysphagia History: Retrospective chart review revealed a history of GAS COMPRESSOR TURBINE OPERATOR services as follows: 08/06/22-07/22/23. The following diet and strategies were recommended: Diet: Soft and Bite Sized Aspiration Precautions: - Upright positioning for all PO intake - Slow rate of intake - Small bites/sips - Alternate solid and liquids Prior MBS completed on 08/05/22 with results indicating Impression: Pt demonstrated mild decreased oral control with lingual pumping. +prespill to vallecula prior to swallow (WFL for age) however over epiglottis into top of laryngeal vestibule at onset of swallow resulting in transient penetration. No true vocal cord contact observed despite pt was coughing during study. Recommend Easy to chew vs. Continue Soft and bite sized with thin liquids. Single bites and drinks, slow rate of intake, smaller more frequent meal to accommodate esophageal emptying. Pt needs education and follow up with deficits, as she is poor historian and decreased memory. Baseline Diet: Adult diet regular Current Diet: Dietary Orders (From admission, onward) Start Ordered 12/01/24 0801 Adult diet Regular; Low Sodium (2 gm) Diet effective now Question Answer Comment Diet type Regular Sodium restriction: Low Sodium (2 gm) 12/01/24 0800 Tube Feeding: no Tracheostomy: no Recent Chest Xray/CT of Chest: CTA chest angiogram w and/or wo IV contrast 12/01/2024 Impression 1. No evidence of acute pulmonary embolism. 2. 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 Neoplastic process is not excluded in this context. 3. Partial visualization of left parotid gland heterogeneous mass, better characterized on dedicated neck CT. Again, neoplasm is not entirely excluded and further evaluation and management is warranted. 4. Other chronic findings as discussed. Report Dictated on Electronically Signed By: Matt Segura MD Electronically Signed Date/Time: 12/01/2024 1:11 AM EDT Oxygen: Oxygen Therapy: None (Room air) Past Medical History: Medical History[1] Past Surgical History: Surgical History[2] Admission Diagnosis: Patient Active Problem List Diagnosis Date Noted Dementia, unspecified dementia severity, unspecified dementia type, unspecified whether behavioral, psychotic, or mood disturbance or anxiety (HCC) 12/01/2024 Debility 12/01/2024 At risk for delirium 12/01/2024 Moderate malnutrition (CMS/HCC) (HCC) 07/14/2023 Decreased activities of daily living (ADL) 07/11/2023 Dyspnea 07/31/2022 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 who presents to the emergency department with chief complaint of brought in by EMS after the patient's sister called, the patient lives with her sister she has dementia, they state that the house is in rather terrible shape it is a bit of a hoarding situation with barely any paths to walk through throughout the house. The patient told her sister to call EMS and then when they got there she started swearing at them and yelling at them. She has been agitated here she is alert to self and place confused to time she has a history of dementia. Initial call was for just complaints of pain all over. Patient Complaint: Pt complains of mouth being very dry Pain: Pt denies any current pain. PPE Worn: gloves Objective Bedside swallow eval completed. Oral Motor Mechanism Facial Movement (CN VII) - Generalized weakness Labial Structure/Function (CN VII) - Reduced protrusion Lingual Structure/Function (CN XII) - Generalized weakness. Reduced elevation of tongue and weakness with resistance to lateral and anterior portions of tongue. Mandible Structure/Function (CN V) - Decreased ROM and strength Velopharyngeal Structure/Function (CN X & XI) - Elevation with phonation Dentition - with no dentures present Oral Hygiene: xerostomia Swallowing Examination PO Trials - ice chips, (teaspoon) - thin liquid, (cup edge, straw) - puree, (teaspoon) - regular solids - self administered Oral Phase Pt with adequate, however, at times impaired oral receipt of PO trials. No anterior spillage. Mastication with noemy crackers appeared complete, organized, and timely. Oral transit time appears WFL. Min oral residue. Additional Observations: Initially, pt demonstrated impaired oral receipt of PO as evidenced by decreased closure of mouth around the spoon. Verbal and tactile cues were provided. Liquid chasers were encouraged after bites of noemy crackers to clear remaining oral residuals. Residuals were very mild. Noted pt with slight rapid intake. Pt taking small and appropriate bites. Pharyngeal Phase Hyolaryngeal excursion clinically appears adequate and timely per palpation. 2 swallows palpated per bolus, likely indicative of impaired pharyngeal clearance. Overt clinical s/s pulmonary compromise with Thin liquids (cup edge and straw) as evidenced by delayed cough. Additional Observations: Pt presents with intermittent coughing with thin liquids. Continue to assess pt for clinical s/s pulmonary compromise prior to recommending an MBSS. Education Education Given: role of therapy, diet recommendations Given To: patient Response: needs reinforcement Goals Patient Stated Goal: None stated. Encounter Problems Encounter Problems (Active) Swallowing Patient will tolerate the least restrictive diet consistency to allow for safe consumption of daily meals Start: 12/02/24 Expected End: 12/16/24 Patient will demonstrate safe swallowing Intervention/techniques Start: 12/02/24 Expected End: 12/16/24 Patient will use appropriate strategies for increased oralpharyngeal swallow function Start: 12/02/24 Expected End: 12/16/24 Therapy Time GAS COMPRESSOR TURBINE OPERATOR Individual Minutes Time In: 0754 Time Out: 0809 Minutes: 15 Lissette Drummond GAS COMPRESSOR TURBINE OPERATOR Graduate Clinician [1] Past Medical History: Diagnosis Date Anxiety Arthritis Hypertension [2] Past Surgical History: Procedure Laterality Date DILATION AND CURETTAGE OF UTERUS HYSTERECTOMY TONSILLECTOMY AND ADENOIDECTOMY (HISTORICAL) Cosigned by MILTON Hernández at 12/02/2024 8:52 AM EDT Images from the original note were not included. OCCUPATIONAL THERAPY [facility] Initial Evaluation Name/MRN: Yelena Chandra ([id number]) Evaluation Date: 12/01/2024 Date of : 1935 Admission Date: 11/30/2024 10:21 PM Age: 89 y.o. Room/Bed: 222-04/222-04 A Discharge Recommendation: Nursing Home Facility Equipment Needed: No Assessment IMPRESSION: Pt admitted to ED on 12/01 with dementia and failure to thrive. Per notes and family report, the home is in disarray and is very cluttered and unsafe. Social functional history was difficult to obtain d/t poor cognition. Upon eval, pt required SBA for bed mobility, Min A for transfers, Min A for mobility, and SBA-Min A for ADLs. Pt would benefit from skilled OT services in order to increase safety and independence in occupational tasks. Recommend SNF upon DC. Admitting Diagnosis: dementia Performance Deficits /Impairments: Increased Pain, Decreased Functional Mobility, Decreased ADL status, Decreased Strength, Decreased Safety Awareness, Decreased Endurance, Decreased Balance, and Decreased Cognition Prognosis: Fair Decision Making: Medium Complexity Subjective Pt very pleasant and agreeable to therapy, confused during the session but jovial- joking with therapist. Pts HR was 129-142 during session. It was stable at this rate and RN gave OK for BSC transfer. BP was 104/75 Spo2 > 90% on RA Pain: Pt denies any current pain. 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 Fall Risk: Velarde Fall Risk Score: 60 (High Risk) Precautions/Restrictions: Lines/Drains/Airways: tele, purewick Fall Precautions Family/Caregiver Present: none Overall Cognitive Status: Exceptions - Following commands: follows one step commands with increased time, follows one step commands with repetition, follows multi-step commands with increased time, and follows multi-step commands with repetition - Attention span: difficulty attending to directions - Memory: decreased recall of recent events and decreased short term memory - Safety judgement: decreased awareness of need for assistance and decreased awareness of need for safety - Problem solving: assistance required to generate solutions, assistance required to implement solutions, assistance required to identify errors made, and assistance required to correct errors made - Insights: not aware of deficits - Initiation: requires cues for some - Sequencing: requires cues for all Overall Orientation Status: Oriented to Person, Disoriented to time- Believes current year is 1918. Vision: Not Assessed Hearing: normal Social/Functional History Pt poor historian d/t history of dementia, all information provided by pt to the best of their knowledge. Information gathered from PT eval note Patient admitted from home. Lives With: Parent - Reports living with parents and reports they are in their 70s despite self identifying she is 89 years old. Per chart, house is in deplorable condition with hoarder-like tendencies Type of Home: single family home Home Layout: Two Level Home Home Access: Stairs to Enter without Rails (# of stairs: 3) Bathroom Shower/Tub: Unable to identify Toilet: Unable to identify Home Equipment: Unknown Homemaking Responsibilities: Independent Receives Help From: Family Active Senior Radiation Therapist: Yes Prior Level of Function Prior Level of ADL Function: Independent Prior Level of Mobility: Independent; Device: None Prior Level of Transfers: Independent Objective ADLs LE Dressing: SBA Toileting: Min Assist Pt continent of stool, reporting need to use the bathroom. She completed BSC level toileting. Min A required for posterior hygiene after voiding a BM. She adjusted her socks with SBA while sitting at EOB. Upper Extremity Assessment AROM: WFL PROM: Not assessed this session Strength: WFL Bed Mobility Supine to sit: SBA Sit to supine: SBA Scooting: SBA Pt was able to complete bed mobility with SBA. She required additional time. HOB wa elevated. She denied dizziness with positional changes. Pt had increased difficulty during sit to supine but still did not require physical assist. Transfers/Mobility Sit to stand: Min Assist Stand to sit: Min Assist Bedside commode: Contact Guard Standing balance: Contact Guard Functional mobility: Min Assist Pt stood from EOB to FWW with Min A initially. She pulled up on the walker and required cues to correct hand placement. She completed a stand step transfer over to the [facility] [place]GA. CGA for toilet transfer with continued cues for hand placement. She returned to EOB where she completed ~ 4 lateral steps to the R with Min A for walker management. Device(s) used: Front wheeled walker AM-PAC AM-PAC Inpatient Daily Activity Raw Score: 21 ADL Inpatient CMS G-Code Modifier: CJ Plan Pt would benefit from skilled acute OT services to address Strengthening, Balance Training, Self-Care/ADL Training, Functional Mobility Training, Endurance Training, Safety Education and Training, Pain Management, Equipment Evaluation/Education, Cognitive Reorientation, Patient/Caregiver Training, and Cognitive/Perceptual Training Frequency: 5 visits during current hospital admission or until additional recommendations are made Barriers: Pain, Impaired balance, Decreased endurance, Confusion, and Cognitive deficit Safety/Education Safety Safety Devices in place: All fall risk precautions in place, call light within reach, left in bed, bed alarm in place, gait belt, patient at risk for falls, and nurse notified Restraints: N/A Education Education Given To: patient Education Provided: OT Role, Plan of Care, Transfer Training, Fall Prevention Education, Discharge Recommendations, and Benefits of Increasing Activity Education Method: Verbal Barriers to Learning: Cognition Education Outcome: Continued Education Needed Goals Patient Stated Goal: to use the bathroom Encounter Problems Encounter Problems (Active) Balance Patient will maintain dynamic standing balance for 3 minutes with modified independence in order to demonstrate decreased risk of falling. Start: 12/01/24 Expected End: 12/06/24 Dressing Upper Extremities Pt will perform UB Adls and grooming tasks with set-up assist at EOB Start: 12/01/24 Expected End: 12/06/24 Dressings Lower Extremities Patient will dress lower body with Mod I Start: 12/01/24 Expected End: 12/06/24 Mobility Pt will perform functional mobility and transfers with FWW and mod I Start: 12/01/24 Expected End: 12/06/24 Toileting Patient will complete toileting tasks at standard toilet with modified independence. Start: 12/01/24 Expected End: 12/06/24 Therapy Time Individual Co-Treatment Co-Evaluation Time In 1329 Time Out 1342 Minutes 13 Haylee Aleman OT Patient's Occupational Therapy Plan of Care supervision is transferred to a [facility] Occupational Therapist. Goals and/or treatment plan was established in collaboration with patient/family/other representatives. [1] Past Medical History: Diagnosis Date Anxiety Arthritis Hypertension [2] Past Surgical History: Procedure Laterality Date DILATION AND CURETTAGE OF UTERUS HYSTERECTOMY TONSILLECTOMY AND ADENOIDECTOMY (HISTORICAL) Images from the original note were not included. PHYSICAL THERAPY [facility] Initial Evaluation Name/MRN: Yelena Chandra ([id number]) Evaluation Date: 12/01/2024 Date of : 1935 Admission Date: 11/30/2024 10:21 PM Age: 89 y.o. Room/Bed: 232-08/232-08 A Discharge Recommendation: Nursing Home Facility Equipment Needed: No Other: TBD at next level of care Assessment IMPRESSION: Pt admitted to ED on 12/01/24 with dementia and failure to thrive. Prior to admission, pt lived with sister per chart review and performed mobility independently. Upon eval, pt required Mod Ax1 for bed mobility, Min Ax1 for transfers, Mod Ax1 for gait/ambulation with fww. Pt would benefit from skilled PT services in order to increase safety and independence in functional mobility and daily tasks. Recommend SNF upon DC. Admitting Diagnosis: Dementia, failure to thrive Prognosis: fair Performance Deficits /Impairments: Increased Pain, Decreased Functional Mobility, Decreased ADL status, Decreased Strength, Decreased Safety Awareness, Decreased Endurance, Decreased Balance, and Decreased Cognition Decision Making: Medium Complexity Subjective Pt pleasantly confused but agreeable to PT evaluation. RN cleared pt for session. 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 Fall Risk: (High Risk) Precautions/Restrictions: Lines/Drains/Airways: tele, purewick Fall Precautions Family/Caregiver Present: none Overall Cognitive Status: Exceptions - Following commands: follows one step commands with increased time, follows one step commands with repetition, follows multi-step commands with increased time, and follows multi-step commands with repetition - Attention span: difficulty attending to directions - Memory: decreased recall of recent events and decreased short term memory - Safety judgement: decreased awareness of need for assistance and decreased awareness of need for safety - Problem solving: assistance required to generate solutions, assistance required to implement solutions, assistance required to identify errors made, and assistance required to correct errors made - Insights: not aware of deficits - Initiation: requires cues for some - Sequencing: requires cues for all Overall Orientation Status: Oriented to Place and Oriented to Person, Believes current year is 1955. Vision: Not Assessed Hearing: normal Social/Functional History Pt poor historian d/t history of dementia, all information provided by pt to the best of their knowledge Patient admitted from home. Lives With: Parent - Reports living with parents and reports they are in their 70s despite self identifying she is 89 years old. Per chart, house is in deplorable condition with hoarder-like tendencies Type of Home: single family home Home Layout: Two Level Home Home Access: Stairs to Enter without Rails (# of stairs: 3) Bathroom Shower/Tub: Unable to identify Toilet: Unable to identify Home Equipment: Unknown Homemaking Responsibilities: Independent Receives Help From: Family Active Senior Radiation Therapist: Yes Prior Level of Function Prior Level of ADL Function: Independent Prior Level of Mobility: Independent; Device: None Prior Level of Transfers: Independent Objective Lower Extremity Assessment AROM: WFL Strength: Pt demonstrates appropriate B LE and quad strength in order to safely participate in OOB mobility. Pain noted with RLE MMT Sensation: WFL Bed Mobility: Supine to sit: Mod Assist Sit to supine: Mod Assist Scooting: Mod Assist Mod Ax1 for all bed mobility. Severely limited d/t pain in RLE and poor overall tolerance. Manual assist required. Fair balance at EOB. Transfers Sit to stand: Min Assist Stand to sit: Min Assist STS x2 from EOB completed with fww at Min Ax1. Poor sequencing noted. Manual assist for sequencing and initiation noted. No LOB d/t increased support required. Ambulation Ambulation 1 Assistive device(s) used: Front wheeled walker Assist level: Mod Assist Distance (ft): 6ft x1 Quality of gait: antalgic, step to pattern, B foot clearance, shuffling, wide GILLIAN, slow kathleen, path deviations, instability through all phases Pt completed short in room gait assessment at Mod Ax1. Moderately antalgic, with poor overall ability to sequence. Manual assist for weight shifting and limb advancement required. Increased time and effort needed to attempt. Poor tolerance present. Outcome Measures AM-PAC How much HELP from another person do you currently need Turning from your back to your side while in a flat bed without using bedrails?: A Lot Moving from lying on your back to sitting on the side of a flat bed without using bedrails?: A Lot Moving to and from a bed to a chair (including a wheelchair)?: A Little Standing up from a chair using your arms (wheelchair or bedside chair)?: A Little Walking in a hospital room?: A Lot Stair climbing assessed?: No AM-PAC Inpatient Mobility Raw Score (No Stairs) : 12 JH-HLM -HL Score: Static standing (1 or more minutes) Plan Pt would benefit from skilled acute PT services to address Strengthening, Gait Training, Balance Training, Self-Care/ADL Training, Functional Mobility Training, Endurance Training, Safety Education and Training, and Pain Management. Frequency: 7 visits during current hospital admission or until additional recommendations are made Barriers: Pain, Impaired balance, Lower extremity weakness, Decreased endurance, Limited safety awareness, Confusion, and Cognitive deficit Safety/Education Safety Safety Devices in place: All fall risk precautions in place, call light within reach, left in bed, gait belt, patient at risk for falls, nurse notified, and no alarms engaged upon entry Restraints: N/A Education Education Given To: patient Education Provided: PT Role, PT Goals, Gait Training, Plan of Care, Transfer Training, Energy Conservation, IADL Safety, Equipment, Fall Prevention Education, Discharge Recommendations, and Benefits of Increasing Activity Education Method: Verbal, Demonstration, and Teach Back Barriers to Learning: Cognition Education Outcome: Verbalized Understanding, Demonstrated Understanding, and Continued Education Needed Goals Patient Stated Goal: None stated Encounter Problems Encounter Problems (Active) Balance Patient will maintain dynamic standing balance for 5 minutes with min assist in order to demonstrate decreased risk of falling. Start: 12/01/24 Expected End: 12/11/24 Exercise Patient will complete lower extremity exercises for 1-2 sets / 10-15 reps in order to improve strength and activity tolerance for mobility. Start: 12/01/24 Expected End: 12/11/24 Mobility Patient will ambulate 25 feet with CGA and least restrictive device in order to improve safety and independence with mobility. Start: 12/01/24 Expected End: 12/11/24 Transfers Patient will perform bed mobility with CGA in order to improve independence and prepare for out of bed mobility. Start: 12/01/24 Expected End: 12/11/24 Patient will complete functional transfer with least restrictive device with CGA in order to prepare for ambulation. Start: 12/01/24 Expected End: 12/11/24 Therapy Time Individual Co-Treatment Co-Evaluation Time In 1020 Time Out 1035 Minutes 15 Arnel Delgado PT Patient's Physical Therapy Plan of Care supervision is transferred to a [facility] Physical Therapist. Goals and/or treatment plan was established in collaboration with patient/family/other representatives. [1] Past Medical History: Diagnosis Date Anxiety Arthritis Hypertension [2] Past Surgical History: Procedure Laterality Date DILATION AND CURETTAGE OF UTERUS HYSTERECTOMY TONSILLECTOMY AND ADENOIDECTOMY (HISTORICAL) documented in this encounter [facility] 12-04-2024 Note Formatting of this n ote might be different from the original. Care Management Progress Note Short Medical why still here: BC pending. Overall improving. Planned Discharge Disposition: Nursing Home Facility ([facility]) Barriers/Today we still Wait: Clinical stability, Symptomatic control Length of Stay (Days): 0 GMLOS: 3 Checked [facility] - auth good through 12/07. Facility able to accept over the weekend. Messaged attending to notify of auth and facility ability to accept if clinically stable. CM tasked to follow patient through the weekend to assist with discharge needs. Chart reviewed. Expected Discharge, Rapid Rounding, and Discharge Milestones / Delays updated as appropriate. CM portion of JEFFERSON complete. Received message from attending - patient cleared for DC. DC orders in place. Requested W/C transport for 1300 via [employer]. [facility] accepted W/C transport for 1300 via [employer]. Called patient's sister, Julianne Bravo, at [phone] to notify of transport time. Answered questions. Messaged bedside RN to notify of transport time and provide number for report. Notified facility of transport time and sent MAR via [employer]. Messaged SW to complete PASRR. Summary sent to facility via [employer]. [facility] 12-04-2024 Note Formatting of this n ote might be different from the original. Care Management Progress Note Short Medical why still here: BC pending. Overall improving. Planned Discharge Disposition: Nursing Home Facility ([facility]) Barriers/Today we still Wait: Clinical stability, Symptomatic control Length of Stay (Days): 0 GMLOS: 3 Checked [facility] - auth good through 12/07. Facility able to accept over the weekend. Messaged attending to notify of auth and facility ability to accept if clinically stable. CM tasked to follow patient through the weekend to assist with discharge needs. Chart reviewed. Expected Discharge, Rapid Rounding, and Discharge Milestones / Delays updated as appropriate. CM portion of JEFFERSON complete. Received message from attending - patient cleared for DC. DC orders in place. Requested W/C transport for 1300 via [employer]. [facility] accepted W/C transport for 1300 via [employer]. Called patient's sister, Julianne Bravo, at [phone] to notify of transport time. Answered questions. Messaged bedside RN to notify of transport time and provide number for report. Notified facility of transport time and sent MAR via [facility]. Messaged SW to complete PASRR. Summary sent to facility via [facility]. [facility] 12-04-2024 Note Care Management Prog ress Note Short Medical why still here: BC pending. Overall improving. Planned Discharge Disposition: Nursing Home Facility ([facility]) Barriers/Today we still Wait: Clinical stability, Symptomatic control Length of Stay (Days): 0 GMLOS: 3 Checked [facility] - auth good through 12/07. Facility able to accept over the weekend. Messaged attending to notify of auth and facility ability to accept if clinically stable. CM tasked to follow patient through the weekend to assist with discharge needs. Chart reviewed. Expected Discharge, Rapid Rounding, and Discharge Milestones / Delays updated as appropriate. CM portion of JEFFERSON complete. Received message from attending - patient cleared for DC. DC orders in place. Requested W/C transport for 1300 via [employer]. [facility] accepted W/C transport for 1300 via [employer]. Called patient's sister, Julianne Bravo, at [phone] to notify of transport time. Answered questions. Messaged bedside RN to notify of transport time and provide number for report. Notified facility of transport time and sent MAR via [employer]. Messaged SW to complete PASRR. Summary sent to facility via [facility]. [facility] 12-04-2024 Nurse Note Patient confused, patient cannot swallow her medications or swallow fluids, and could aspirate, medications crushed with apple sauce and doctor notified and new order for evaluation. [facility] 12-04-2024 Plan of care note Problem: Pain - Adult Goal: Verbalizes/displays adequate comfort level or baseline comfort level 12/04/2024 0445 by Salina Godoy RN Outcome: Not Progressing 12/04/2024 0405 by Salina Godoy RN Outcome: Not Progressing 12/04/2024 0141 by Salina Godoy RN Outcome: Not Progressing 12/04/2024 0127 by Salina Godoy RN Outcome: Not Progressing Problem: Safety - Adult Goal: Free from fall injury 12/04/2024 0445 by Salina Godoy RN Outcome: Not Progressing 12/04/2024 0405 by Salina Godoy RN Outcome: Not Progressing 12/04/2024 0141 by Salina Godoy RN Outcome: Not Progressing 12/04/2024 0127 by Salina Godoy RN Outcome: Not Progressing Problem: Discharge Planning Goal: Discharge to home or other facility with appropriate resources 12/04/2024 0445 by Salina Alhmeidi-Abueteen, RN Outcome: Not Progressing 12/04/2024 0405 by Salina Godoy RN Outcome: Not Progressing 12/04/2024 0141 by Salina Godoy RN Outcome: Not Progressing 12/04/2024 0127 by Salina Godoy RN Outcome: Not Progressing Problem: Chronic Conditions and Co-morbidities Goal: Patient's chronic conditions and co-morbidity symptoms are monitored and maintained or improved 12/04/2024 0445 by Salina Godoy, MITA Outcome: Not Progressing 12/04/2024 0405 by Salina Godoy RN Outcome: Not Progressing 12/04/2024 0141 by Salina Godoy RN Outcome: Not Progressing 12/04/2024 0127 by Salina Godoy RN Outcome: Not Progressing Problem: Problem Interventions Goal: Assess Nutritional Intake 12/04/2024 044 by Salina Godoy RN Outcome: Not Progressing 12/04/2024 0405 by Salina Godoy RN Outcome: Not Progressing 12/04/2024 014 by Salina Godoy RN Outcome: Not Progressing 12/04/2024 012 by Salina Godoy RN Outcome: Not Progressing [facility] 12-04-2024 Plan of care note Problem: Pain - Adult Goal: Verbalizes/displays adequate comfort level or baseline comfort level 12/04/2024 0405 by Salina Godoy RN Outcome: Not Progressing 12/04/2024 0141 by Salina Godoy RN Outcome: Not Progressing 12/04/2024 0127 by Salina Godoy RN Outcome: Not Progressing Problem: Safety - Adult Goal: Free from fall injury 12/04/2024 0405 by Salina Godoy RN Outcome: Not Progressing 12/04/2024 0141 by Salina Godoy RN Outcome: Not Progressing 12/04/2024 012 by Salina Godoy RN Outcome: Not Progressing Problem: Discharge Planning Goal: Discharge to home or other facility with appropriate resources 12/04/2024 0405 by Salina Godoy RN Outcome: Not Progressing 12/04/2024 014 by Salina Godoy RN Outcome: Not Progressing 12/04/2024 0127 by Salina Godoy RN Outcome: Not Progressing Problem: Chronic Conditions and Co-morbidities Goal: Patient's chronic conditions and co-morbidity symptoms are monitored and maintained or improved 12/04/2024 040 by Salina Godoy RN Outcome: Not Progressing 12/04/2024 014 by Salina Godoy RN Outcome: Not Progressing 12/04/2024 012 by Salina Godoy RN Outcome: Not Progressing Problem: Problem Interventions Goal: Assess Nutritional Intake 12/04/2024 040 by Salina Godoy RN Outcome: Not Progressing 12/04/2024 014 by Salina Godoy RN Outcome: Not Progressing 12/04/2024 012 by Salina Godoy RN Outcome: Not Progressing [facility] [place] 12-04-2024 Plan of care note Problem: Pain - Adult Goal: Verbalizes/displays adequate comfort level or baseline comfort level 12/04/2024 014 by Salina Godoy RN Outcome: Not Progressing 12/04/2024 012 by Salina Godoy RN Outcome: Not Progressing Problem: Safety - Adult Goal: Free from fall injury 12/04/2024 014 by Salina Godoy RN Outcome: Not Progressing 12/04/2024 012 by Salina Godoy RN Outcome: Not Progressing Problem: Discharge Planning Goal: Discharge to home or other facility with appropriate resources 12/04/2024 014 by Salina Godoy RN Outcome: Not Progressing 12/04/2024 012 by Salina Godoy RN Outcome: Not Progressing Problem: Chronic Conditions and Co-morbidities Goal: Patient's chronic conditions and co-morbidity symptoms are monitored and maintained or improved 12/04/2024 014 by Salina Godoy RN Outcome: Not Progressing 12/04/2024 012 by Salina Godoy RN Outcome: Not Progressing Problem: Problem Interventions Goal: Assess Nutritional Intake 12/04/2024140 by Salina Godoy RN Outcome: Not Progressing 12/04/2024126 by Salina Godoy RN Outcome: Not Progressing [facility] 12-04-2024 Plan of care note Problem: Pain - Adult Goal: Verbalizes/displays adequate comfort level or baseline comfort level Outcome: Not Progressing Problem: Safety - Adult Goal: Free from fall injury Outcome: Not Progressing Problem: Discharge Planning Goal: Discharge to home or other facility with appropriate resources Outcome: Not Progressing Problem: Chronic Conditions and Co-morbidities Goal: Patient's chronic conditions and co-morbidity symptoms are monitored and maintained or improved Outcome: Not Progressing Problem: Problem Interventions Goal: Assess Nutritional Intake Outcome: Not Progressing T JOOR WhatsApp 12-03-2024 Note [facility] Progress Note Subjective/ 89 y.o. year old female who we are seeing in consultation for NORI. Mental status better. Bp okay. nO SOB. Good urine output. ROS Otherwise negative. No change iN PFSH. Objective/ Vitals: 12/03/24 0249 12/03/24 0846 12/03/24 1216 12/03/24 1529 BP: 116/63 140/73 135/75 104/67 BP Location: Left arm Left arm Left arm Right arm Patient Position: Lying Lying Lying Lying Pulse: 76 83 70 78 Resp: 16 16 18 16 Temp: 36.8 ?C (98.3 ?F) 36.6 ?C (97.8 ?F) 36.4 ?C (97.5 ?F) 37.3 ?C (99.1 ?F) TempSrc: Temporal Temporal Temporal Temporal SpO2: 96% 95% 98% 96% Weight: Height: 24HR INTAKE/OUTPUT: No intake or output data in the 24 hours ending 12/03/241813 Constitutional: Alert, awake, no apparent distress Head: AT NC Neck: No JVD, no thyromegaly Cardiovascular: S1, S2 without m/r/g Respiratory: CTA B without w/r/r Abdomen: soft, nt Ext: NO B/L pitting LE edema, no tremor. Scheduled Meds[1] Continuous Meds[2] PRN Meds[3] Data/ Recent Labs 11/30/24224412/02/2451812/03/24 0404 WBC 12.6* 8.8 6.4 HGB 14.5 11.4* 11.7 HCT 44.1 35.9 36.5 MCV 82.3 84.3 84.9 PLT 318 316 303 Recent Labs 11/30/24224412/02/2451812/03/24 0404 NA 140 139 138 K 3.5 3.3* 4.2 CL 101 105 103 CO2 24 24 23 GLUCOSE 120* 132* 124* MG 1.5* 2.3 -- BUN 25* 47* 57* CREATININE 1.26* 1.92* 1.69* Assessment/ NORI 2/2 ATN (IV contrast. ) CKD IIIA. Hypokalemia. Dementia. F03.9 FTT. Thyroid and parathyroid mass. Plan/ Cr peaked and is starting to improve. Hypokalemia improving too. NO further need for IVF. Avoid further IV contrast. Will follow. Enzo Carey MD [facility] [1] aspirin, 81 mg, Oral, Daily [START ON 12/04/2024] cholecalciferol, 2,000 Units, Oral, Daily enoxaparin, 40 mg, SubCUTAneous, Daily melatonin, 3 mg, Oral, Nightly metoprolol tartrate, 25 mg, Oral, BID pantoprazole, 40 mg, Oral, qAM AC sertraline, 50 mg, Oral, Daily therapeutic multivitamin-minerals, 1 tablet, Oral, Daily [2] [3] PRN medications: acetaminophen OR acetaminophen, melatonin, ondansetron ODT OR ondansetron, polyethylene glycol (PEG) 3350 [facility] 12-03-2024 Note Formatting of this n ote might be different from the original. Auth is now approved for pt to go to [facility]. Auth johnny through 12/07. Dr. Barnes notified. Tasked weekend case management to follow over the weekend. valuation manager to follow and assist as needed. [facility] 12-03-2024 Note Formatting of this n ote might be different from the original. Auth is now approved for pt to go to [facility]. Alexsander turner through 12/07. Dr. Barnes notified. Tasked weekend case management to follow over the weekend. valuation manager to follow and assist as needed. [facility] 12-03-2024 Note Formatting of this n ote might be different from the original. Care Management Progress Note Short Medical why still here: Monitoring renal labs, SNF placement Planned Discharge Disposition: Nursing Home Facility ([facility]) -Tasked [facility] rag room supervisor to start auth. Barriers/Today we still Wait: Clinical stability, Symptomatic control, facility auth -Auth to be started today. Left HIPAA compliant voice mail with sister asking for return call. valuation manager to follow and assist as needed. Length of Stay (Days): 0 GMLOS: 3 [facility] 12-03-2024 Note Formatting of this n ote might be different from the original. Care Management Progress Note Short Medical why still here: Monitoring renal labs, SNF placement Planned Discharge Disposition: Nursing Home [facility] ([facility]) -Tasked [facility] rag room supervisor to start auth. Barriers/Today we still Wait: Clinical stability, Symptomatic control, facility auth -Auth to be started today. Left HIPAA compliant voice mail with sister asking for return call. valuation manager to follow and assist as needed. Length of Stay (Days): 0 GMLOS: 3 [facility] 12-03-2024 Note Care Management Prog ress Note Short Medical why still here: Monitoring renal labs, SNF placement Planned Discharge Disposition: Nursing Home Facility ([facility]) -Tasked [facility] rag room supervisor to start auth. Barriers/Today we still Wait: Clinical stability, Symptomatic control, facility auth -Auth to be started today. Left HIPAA compliant voice mail with sister asking for return call. valuation manager to follow and assist as needed. Length of Stay (Days): 0 GMLOS: 3 [facility] 12-03-2024 Note Hospitalist Progress Note 12/03/2024 Subjective: Admit Date: 11/30/2024 PCP: Yenifer Schulz DO Room#: B2-260/B2-260 A BRIEF HOSPITAL COURSE: Admitted for dementia with behavioral changes, failure to thrive. Interval History: Seen and examined. More alert and awake No pain Moving all 4 extremities without significant pain. Urine culture- no growth. BC pending Adult diet Dysphagia - Soft and Bite Sized; Low Sodium (2 gm) 24HR INTAKE/OUTPUT: No intake or output data in the 24 hours ending 12/03/24 1047 Past Medical History: Medical History[1] LABS: CBC: Recent Labs 11/30/24 2245 12/02/24 0519 12/03/24 0404 WBC 12.6* 8.8 6.4 RBC 5.36* 4.26 4.30 HGB 14.5 11.4* 11.7 HCT 44.1 35.9 36.5 MCV 82.3 84.3 84.9 RDW 13.9 14.1 14.0 PLT 318 316 303 BMP: Recent Labs 11/30/24224412/02/2451812/03/24403 NA 140 139 138 K 3.5 3.3* 4.2 CL 101 105 103 CO2 24 24 23 BUN 25* 47* 57* CREATININE 1.26* 1.92* 1.69* GLUCOSE 120* 132* 124* CALCIUM 9.7 8.4* 8.5* ANIONGAP 15* 10 12 LIVER PROFILE: Recent Labs 11/30/24224412/02/2451812/03/24403 AST 22 29 27 ALT 9 9 10 BILITOT 1.3* 0.4 0.3 ALKPHOS 103 83 75 PROT 7.6 6.1* 6.0* PT/INR: No results for input(s): "PROTIME", "INR" in the last 72 hours. CARDIAC ENZYMES: No results for input(s): "TROPONINI" in the last 72 hours. Procalcitonin: Lab Results Component Value Date PROCAL 2.84 (H) 12/02/2024 COVID-19 PCR: No results for input(s): "COVID19" in the last 72 hours. Objective: Vitals: BP 140/73 (BP Location: Left arm, Patient Position: Lying) Pulse 83 Temp 36.6 ?C (97.8 ?F) (Temporal) Resp 16 Ht 5' 4" (1.626 m) Wt 161 lb 14.4 oz (73.4 kg) SpO2 95% BMI 27.79 kg/m? Pulse Ox: SpO2 Av.8 % Min: 95 % Max: 96 % Supplemental O2: Physical Exam Constitutional: Appearance: Normal appearance. Cardiovascular: Rate and Rhythm: Normal rate and regular rhythm. Heart sounds: Normal heart sounds. Pulmonary: Effort: Pulmonary effort is normal. Breath sounds: Normal breath sounds. Abdominal: General: Bowel sounds are normal. Palpations: Abdomen is soft. Musculoskeletal: Right lower leg: No edema. Left lower leg: No edema. Neurological: General: No focal deficit present. Mental Status: She is alert. Medications: Scheduled PRN Scheduled Meds[2] PRN Meds[3] Continuous Continuous Meds[4] Assessment Data: (CAT1) Reviewed 1 notes from different specialty or health system (each=1). (LOW: 2x CAT1 or independent historian MOD: 3x CAT1 or 1x CAT3 EXTENSIVE: 3x CAT1 and 1x CAT3) Acute, acute on chronic, unstable/uncontrolled chronic problems/diagnoses: Dementia with behavioral changes -improved and likely at baseline, alert , awake and answers questions appropriately. Geriatrics consulted and started on scheduled Zoloft 50 mg daily. Failure to thrive - lives with sister, PT/OT and likely placement NORI with underlying mild CKD- likely from dehydration, had contrast exposure in ED, CT abdomen - no hydronephrosis, calculi- gentle hydration. . CK normal . Improving slowly - monitor Hypomagnesemia- replaced Elevated HS troponin - tending down, no chest pain, EKG- right BBB- similar to previous EKG. CTA chest negative for PE. ECHO- normal EF, no wall motion abnormality. 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 USG done - reviewed- will follow up as an outpatient Pain right knee- x ray right knee and pelvis with OA, no significant effusion at knee joint. ROM + HTN- not on amlodipine at home, will DC. Metoprolol 25 mg BID. Elevated procal/CRP- check BC, no sign of infection. Hypokalemia - replace Stable chronic problems affecting care, new non-acute diagnoses: Plan As a result of the above findings & factors, the following mgmt was pursued: - overall improving - stable mental status - speech eval - modified diet - creatinine improving slowly, encourage oral intake - labs in am - am labs, replace lytes prn - PT/OT/CM/SW - delirium precautions: increase activity - DVT prophylaxis: enoxaparin and encourage ambulation Advance Directive: Full Code Anticipated Discharge Extended Emergency Contact Information Primary Emergency Contact: Julianne Bravo Mobile Relation: Sister Preferred language: [place] [employer] Assistant needed? No Victorino Barnes MD Division of Hospitalist Medicine [facility] [1] Past Medical History: Diagnosis Date Anxiety Arthritis Hypertension [2] aspirin, 81 mg, Oral, Daily [START ON 12/04/2024] cholecalciferol, 2,000 Units, Oral, Daily enoxaparin, 40 mg, SubCUTAneous, Daily melatonin, 3 mg, Oral, Nightly metoprolol tartrate, 25 mg, Oral, BID pantoprazole, 40 mg, Oral, qAM AC sertraline, 50 mg, Oral, Daily therapeutic multivitamin-minerals, 1 tablet, Oral, Daily [3] PRN medications: acetaminophen * (more content not included)... [facility] 12-02-2024 Consult note Associated Order (s): IP CONSULT TO NEPHROLOGY [facility] Consultation Note Reason for consultation: NORI Chief Complaint: Behavioral changes, FTT History of Presenting Illness 89 y/o WF with baseline Cr 0.9 to 1.0 presented with above complaints. Cr was 1.3 on 11/30-> worsened to 1.9 on 12/02. Patient is oriented Ax O1. Is awake. Oriented to herself. [facility]. Doesn't know the year. History obtained from chart review as patient is disoriented. Received IV contrast with CT on 11/30. BP readings okay. No outpatient nephrotoxins. Past Medical/Surgical History Medical History[1] Surgical History[2] Review of Systems All 12 systems attempted but unobtainable as the patient is disoriented. Medications Current Medications[3] Allergies Patient has no known allergies. Family History Family History[4] Social History Social History[5] Physical Exam Blood pressure 101/70, pulse 80, temperature 36.5 C (97.7 F), temperature source Temporal, resp. rate 18, height 1.626 m (5' 4"), weight 73.4 kg (161 lb 14.4 oz), SpO2 96%. 24 HR INTAKE/OUTPUT: Intake/Output Summary (Last 24 hours) at 12/02/2024 2223 Last data filed at 12/02/2024 0824 Gross per 24 hour Intake 60 ml Output -- Net 60 ml General: Awake, cooperative, disoriented. Head: AT NC Eyes: No icterus, no pallor Neck: Supple, no jvd Chest: B/L clear, no crackles, no accessory muscles usage. CV: RRR, no murmurs or rubs Abdomen: NT, ND, soft Extremities: No peripheral edema, no tremor Neurological: Moving all four extremities, no focal neurological deficit Psychiatric: Lacks insight, poor recall Skin: No rashes on legs or arms, no bullae. Data Results from last 7 days Lab Units 12/02/2451811/30/242244 WBC AUTO 10*3/uL 8.8 12.6* HEMOGLOBIN g/dL 11.4* 14.5 HEMATOCRIT % 35.9 44.1 PLATELETS 10*3/uL 316 318 Recent Labs 11/30/24224412/02/24518 NA 140 139 K 3.5 3.3* CL 101 105 CO2 24 24 GLUCOSE 120* 132* MG 1.5* 2.3 BUN 25* 47* CREATININE 1.26* 1.92* Albumin: No components found for: LABALBU Calcium: Lab Results Component Value Date CALCIUM 8.4 (L) 12/02/2024 ABGs: @BRIEFLAB(PHART,PO2ART,[id number],HC O3ART,BEART,[id number]) Imaging: Reviewed. Assessment: NORI 2/2 ATN (IV contrast. ) CKD IIIA. Hypokalemia. Dementia. FTT. Thyroid and parathyroid mass. Plan: Suspect NORI 2/2 ATN from IV contrast. Check urine studies, measure PVR to r/o retention. Replete K. Has received IVF x 10 hours, await response. Hold further IVF. ATN - await peaking of Cr. Avoid IV contrast. Will follow. Thank you for asking us to participate in the management of your patient, please do not hesitate to contact me for any concerns regarding my recommendations as outlined above. Enzo Carey M.D. [facility] [1] Past Medical History: Diagnosis Date Anxiety Arthritis Hypertension [2] Past Surgical History: Procedure Laterality Date DILATION AND CURETTAGE OF UTERUS HYSTERECTOMY TONSILLECTOMY AND ADENOIDECTOMY (HISTORICAL) [3] Current Facility-Administered Medications Medication Dose Route Frequency Provider Last Rate Last Admin acetaminophen (Tylenol) tablet 650 mg 650 mg Oral q6h PRN Freddie Bernard MD Or acetaminophen (Tylenol) suppository 650 mg 650 mg Rectal q6h PRN Freddie Bernard MD aspirin EC tablet 81 mg 81 mg Oral Daily Freddie Bernard MD 81 mg at 12/02/24 0827 [START ON 12/04/2024] cholecalciferol (Vitamin D-3) tablet 2,000 Units 2,000 Units Oral Daily GENEVA Sánchez CNP enoxaparin (Lovenox) syringe 40 mg 40 mg SubCUTAneous Daily Freddie Bernard MD 40 mg at 12/02/24 0828 melatonin tablet 3 mg 3 mg Oral Nightly PRN Freddie Bernard MD melatonin tablet 3 mg 3 mg Oral Nightly Victorino Barnes MD 3 mg at 12/02/242108 metoprolol tartrate (Lopressor) tablet 25 mg 25 mg Oral BID Victorino Barnes MD 25 mg at 12/02/242109 ondansetron ODT (Zofran-ODT) disintegrating tablet 4 mg 4 mg Oral q8h PRN Freddie Bernard MD Or ondansetron (Zofran) injection 4 mg 4 mg IntraVENous q6h PRN Freddie Bernard MD pantoprazole (ProtoNix) EC tablet 40 mg 40 mg Oral qAM AC Freddie Bernard MD 40 mg at 12/02/24 0516 polyethylene glycol (PEG) 3350 (Miralax) packet 17 g 17 g Oral Daily PRN Freddie Bernard MD [START ON 12/03/2024] sertraline (Zoloft) tablet 50 mg 50 mg Oral Daily GENEVA Sánchez CNP therapeutic multivitamin-minerals (Theragran-M) tablet 1 tablet Oral Daily Freddie Bernard MD 1 tablet at 12/02/24 0827 [4] No family history on file. [5] Social History Socioeconomic History Marital status: Tobacco Use Smoking status: Former Smokeless tobacco: Never Substance and Sexual Activity Alcohol use: No Drug use: No Social Drivers of Health Transportation Needs: No Transportation Needs (12/01/2024) PRAPARE - Transportation Lack of Transportation (Medical): No Lack of Transportation (Non-Medical): No Intimate Partner Violence: Not At Risk (12/01/2024) Humiliation, Afraid, Rape, and Kick questionnaire Fear of Current or Ex-Partner: No Emotionally Abused: No Physically Abused: No Sexually Abused: No Housing Stability: Low Risk (12/01/2024) Housing Stability Vital Sign Unable to Pay for Housing in the Last Year: No Number of Times Moved in the Last Year: 1 Homeless in the Last Year: No [facility] 12-02-2024 Note [facility] Consultation Note Reason for consultation: NORI Chief Complaint: Behavioral changes, FTT History of Presenting Illness 89 y/o WF with baseline Cr 0.9 to 1.0 presented with above complaints. Cr was 1.3 on 11/30-> worsened to 1.9 on 12/02. Patient is oriented Ax O1. Is awake. Oriented to herself. [facility]. Doesn't know the year. History obtained from chart review as patient is disoriented. Received IV contrast with CT on 11/30. BP readings okay. No outpatient nephrotoxins. Past Medical/Surgical History Medical History[1] Surgical History[2] Review of Systems All 12 systems attempted but unobtainable as the patient is disoriented. Medications Current Medications[3] Allergies Patient has no known allergies. Family History Family History[4] Social History Social History[5] Physical Exam Blood pressure 101/70, pulse 80, temperature 36.5 ?C (97.7 ?F), temperature source Temporal, resp. rate 18, height 1.626 m (5' 4"), weight 73.4 kg (161 lb 14.4 oz), SpO2 96%. 24 HR INTAKE/OUTPUT: Intake/Output Summary (Last 24 hours) at 12/02/2024 2223 Last data filed at 12/02/2024 0824 Gross per 24 hour Intake 60 ml Output -- Net 60 ml General: Awake, cooperative, disoriented. Head: AT NC Eyes: No icterus, no pallor Neck: Supple, no jvd Chest: B/L clear, no crackles, no accessory muscles usage. CV: RRR, no murmurs or rubs Abdomen: NT, ND, soft Extremities: No peripheral edema, no tremor Neurological: Moving all four extremities, no focal neurological deficit Psychiatric: Lacks insight, poor recall Skin: No rashes on legs or arms, no bullae. Data Results from last 7 days Lab Units 12/02/24 0519 11/30/24 2245 WBC AUTO 10*3/uL 8.8 12.6* HEMOGLOBIN g/dL 11.4* 14.5 HEMATOCRIT % 35.9 44.1 PLATELETS 10*3/uL 316 318 Recent Labs 11/30/24 2245 12/02/24 0519 NA 140 139 K 3.5 3.3* CL 101 105 CO2 24 24 GLUCOSE 120* 132* MG 1.5* 2.3 BUN 25* 47* CREATININE 1.26* 1.92* Albumin: No components found for: LABALBU Calcium: Lab Results Component Value Date CALCIUM 8.4 (L) 12/02/2024 ABGs: @BRIEFLAB(PHART,PO2ART,CFY5JFU,HC O3ART,BEART,[id number]) Imaging: Reviewed. Assessment: NORI 2/2 ATN (IV contrast. ) CKD IIIA. Hypokalemia. Dementia. FTT. Thyroid and parathyroid mass. Plan: Suspect NORI 2/2 ATN from IV contrast. Check urine studies, measure PVR to r/o retention. Replete K. Has received IVF x 10 hours, await response. Hold further IVF. ATN - await peaking of Cr. Avoid IV contrast. Will follow. Thank you for asking us to participate in the management of your patient, please do not hesitate to contact me for any concerns regarding my recommendations as outlined above. Enzo Carey M.D. [facility] [1] Past Medical History: Diagnosis Date Anxiety Arthritis Hypertension [2] Past Surgical History: Procedure Laterality Date DILATION AND CURETTAGE OF UTERUS HYSTERECTOMY TONSILLECTOMY AND ADENOIDECTOMY (HISTORICAL) [3] Current Facility-Administered Medications Medication Dose Route Frequency Provider Last Rate Last Admin acetaminophen (Tylenol) tablet 650 mg 650 mg Oral q6h PRN Freddie Bernard MD Or acetaminophen (Tylenol) suppository 650 mg 650 mg Rectal q6h PRN Freddie Bernard MD aspirin EC tablet 81 mg 81 mg Oral Daily Freddie Bernard MD 81 mg at 12/02/24 0827 [START ON 12/04/2024] cholecalciferol (Vitamin D-3) tablet 2,000 Units 2,000 Units Oral Daily Melissa Quintanilla APRN - DILEEP enoxaparin (Lovenox) syringe 40 mg 40 mg SubCUTAneous Daily Freddie Bernard MD 40 mg at 12/02/24 0828 melatonin tablet 3 mg 3 mg Oral Nightly PRN Freddie Bernard MD melatonin tablet 3 mg 3 mg Oral Nightly Victorino Barnes MD 3 mg at 12/02/242108 metoprolol tartrate (Lopressor) tablet 25 mg 25 mg Oral BID Victorino Barnes MD 25 mg at 12/02/242109 ondansetron ODT (Zofran-ODT) disintegrating tablet 4 mg 4 mg Oral q8h PRN Freddie Bernard MD Or ondansetron (Zofran) injection 4 mg 4 mg IntraVENous q6h PRN Freddie Bernard MD pantoprazole (ProtoNix) EC tablet 40 mg 40 mg Oral qAM AC Freddie Bernard MD 40 mg at 12/02/24 0516 polyethylene glycol (PEG) 3350 (Miralax) packet 17 g 17 g Oral Daily PRN Freddie Bernard MD [START ON 12/03/2024] sertraline (Zoloft) tablet 50 mg 50 mg Oral Daily Melissa Quintanilla APRN - RATE ENGINEER therapeutic multivitamin-minerals (Theragran-M) tablet 1 tablet Oral Daily Freddie Bernard MD 1 tablet at 12/02/24 0827 [4] No family history on file. [5] Social History Socioeconomic History Marital status: Tobacco Use Smoking status: Former Smokeless tobacco: Never Substance and Sexual Activity Alcohol use: No Drug use: No Social Drivers of Health Transportation Needs: No Transportation Needs (12/01/2024) PRAPARE - Transportation Lack of Transportation (Medical): No Lack of Transportation (Non-Medical): No Intimate Partner Violence: Not At Risk (12/01/2024) Humiliation, Sarah (more content not included)... [facility] 12-02-2024 Consult note Associated Order (s): IP CONSULT TO NEPHROLOGY [facility] Consultation Note Reason for consultation: NORI Chief Complaint: Behavioral changes, FTT History of Presenting Illness 89 y/o WF with baseline Cr 0.9 to 1.0 presented with above complaints. Cr was 1.3 on 11/30-> worsened to 1.9 on 12/02. Patient is oriented Ax O1. Is awake. Oriented to herself. [facility]. Doesn't know the year. History obtained from chart review as patient is disoriented. Received IV contrast with CT on 11/30. BP readings okay. No outpatient nephrotoxins. Past Medical/Surgical History Medical History[1] Surgical History[2] Review of Systems All 12 systems attempted but unobtainable as the patient is disoriented. Medications Current Medications[3] Allergies Patient has no known allergies. Family History Family History[4] Social History Social History[5] Physical Exam Blood pressure 101/70, pulse 80, temperature 36.5 C (97.7 F), temperature source Temporal, resp. rate 18, height 1.626 m (5' 4"), weight 73.4 kg (161 lb 14.4 oz), SpO2 96%. 24 HR INTAKE/OUTPUT: Intake/Output Summary (Last 24 hours) at 12/02/20242222 Last data filed at 12/02/2024 0824 Gross per 24 hour Intake 60 ml Output -- Net 60 ml General: Awake, cooperative, disoriented. Head: AT NC Eyes: No icterus, no pallor Neck: Supple, no jvd Chest: B/L clear, no crackles, no accessory muscles usage. CV: RRR, no murmurs or rubs Abdomen: NT, ND, soft Extremities: No peripheral edema, no tremor Neurological: Moving all four extremities, no focal neurological deficit Psychiatric: Lacks insight, poor recall Skin: No rashes on legs or arms, no bullae. Data Results from last 7 days Lab Units 12/02/24 0511/30/24 2245 WBC AUTO 10*3/uL 8.8 12.6* HEMOGLOBIN g/dL 11.4* 14.5 HEMATOCRIT % 35.9 44.1 PLATELETS 10*3/uL 316 318 Recent Labs 11/30/24 2245 12/02/24 0519 NA 140 139 K 3.5 3.3* CL 101 105 CO2 24 24 GLUCOSE 120* 132* MG 1.5* 2.3 BUN 25* 47* CREATININE 1.26* 1.92* Albumin: No components found for: LABALBU Calcium: Lab Results Component Value Date CALCIUM 8.4 (L) 12/02/2024 ABGs: @BRIEFLAB(PHART,PO2ART,[id number],HC O3ART,BEART,[id number]) Imaging: Reviewed. Assessment: NORI 2/2 ATN (IV contrast. ) CKD IIIA. Hypokalemia. Dementia. FTT. Thyroid and parathyroid mass. Plan: Suspect NORI 2/2 ATN from IV contrast. Check urine studies, measure PVR to r/o retention. Replete K. Has received IVF x 10 hours, await response. Hold further IVF. ATN - await peaking of Cr. Avoid IV contrast. Will follow. Thank you for asking us to participate in the management of your patient, please do not hesitate to contact me for any concerns regarding my recommendations as outlined above. Enzo Carey M.D. [facility] [1] Past Medical History: Diagnosis Date Anxiety Arthritis Hypertension [2] Past Surgical History: Procedure Laterality Date DILATION AND CURETTAGE OF UTERUS HYSTERECTOMY TONSILLECTOMY AND ADENOIDECTOMY (HISTORICAL) [3] Current Facility-Administered Medications Medication Dose Route Frequency Provider Last Rate Last Admin acetaminophen (Tylenol) tablet 650 mg 650 mg Oral q6h PRN Freddie Bernard MD Or acetaminophen (Tylenol) suppository 650 mg 650 mg Rectal q6h PRN Freddie Bernard MD aspirin EC tablet 81 mg 81 mg Oral Daily Freddie Bernard MD 81 mg at 12/02/24 0827 [START ON 12/04/2024] cholecalciferol (Vitamin D-3) tablet 2,000 Units 2,000 Units Oral Daily Melissa Quintanilla APRN - DILEEP enoxaparin (Lovenox) syringe 40 mg 40 mg SubCUTAneous Daily Freddie Bernard MD 40 mg at 12/02/24 0828 melatonin tablet 3 mg 3 mg Oral Nightly PRN Freddie Bernard MD melatonin tablet 3 mg 3 mg Oral Nightly Victorino Barnes MD 3 mg at 12/02/242108 metoprolol tartrate (Lopressor) tablet 25 mg 25 mg Oral BID Victorino Barnes MD 25 mg at 12/02/240 ondansetron ODT (Zofran-ODT) disintegrating tablet 4 mg 4 mg Oral q8h PRN Freddie Bernard MD Or ondansetron (Zofran) injection 4 mg 4 mg IntraVENous q6h PRN Freddie Bernard MD pantoprazole (ProtoNix) EC tablet 40 mg 40 mg Oral qAM AC Freddie Bernard MD 40 mg at 12/02/24 0516 polyethylene glycol (PEG) 3350 (Miralax) packet 17 g 17 g Oral Daily PRN Freddie Bernard MD [START ON 12/03/2024] sertraline (Zoloft) tablet 50 mg 50 mg Oral Daily Melsisa [place] APRN - RATE ENGINEER therapeutic multivitamin-minerals (Theragran-M) tablet 1 tablet Oral Daily rFeddie Bernard MD 1 tablet at 12/02/24 0827 [4] No family history on file. [5] Social History Socioeconomic History Marital status: Tobacco Use Smoking status: Former Smokeless tobacco: Never Substance and Sexual Activity Alcohol use: No Drug use: No Social Drivers of Health Transportation Needs: No Transportation Needs (12/01/2024) PRAPARE - Transportation Lack of Transportation (Medical): No Lack of Transportation (Non-Medical): No Intimate Partner Violence: Not At Risk (12/01/2024) Humiliation, Afraid, Rape, and Kick questionnaire Fear of Current or Ex-Partner: No Emotionally Abused: No Physically Abused: No Sexually Abused: No Housing Stability: Low Risk (12/01/2024) Housing Stability Vital Sign Unable to Pay for Housing in the Last Year: No Number of Times Moved in the Last Year: 1 Homeless in the Last Year: No Associated Order(s): IP CONSULT TO DIETITIAN Nutrition Assessment Type and Reason for Visit: Initial, Consult Nutrition Recommendations/Plan: Suggest 3-4 gm sodium diet. Outreach Nurse to assist with menu selections soft foods -diet office notified Per mnt protocol will add Ensure High Protein once daily (160 kcal, 16 gm protein) monitor kennedy and PO intake of meals -modify as needed Please record meal and supplement intakes in RN Flowsheets RD to monitor labs, weight, skin status, PO intake -follow up weekly Malnutrition Assessment: Malnutrition Status: Moderate malnutrition Context: Chronic Illness Findings of the 6 clinical characteristics of malnutrition: Energy Intake: 75% or less estimated energy requirements for 1 month or longer (suspected) Weight Loss: Unable to assess Body Fat Loss: Mild body fat loss Triceps Muscle Mass Loss: Mild muscle mass loss Temples (temporalis), Hand (interosseous) (suspect also age related loss) Fluid Accumulation: Mild Extremities Disability Services Coordinator Strength: Not Performed Nutrition Assessment: 89 y.o. female admits with dementia with behavioral changes, failure to thrive, NORI, HTN, elevated HS troponin - tending down, mild leucocytosis - improved, thyroid and parathyroid mass -follow up as an outpatient. Pt observed eating lunch with good intake/ pt reports +appetite, states she is able to chew without difficulty but may benefit from softer foods -poor dentition. Pt denies wt loss. bed scale wt 144.6 lb. Family not in room. pmhx anxiety, HTN, arthritis Estimated Daily Nutrient Needs: Energy Requirements Based On: Kcal/kg Weight Used for Energy Requirements: [place] Weight for Energy Calculation (kg): 55 kg Total Energy Requirements (kcals/day): 5380-2900 (25-30) Weight Used for Protein Requirements: [place] Weight in Kg Used for Protein Requirements: 55 kg Estimated Total Protein (g/day): 44-66 (.8-1.2) monitor renal function Estimated Daily Total Fluid (ml/day): per MD Nutrition Related Findings: +1 patricia LE edema. bm loose/watery 12/01. crp 205.5, procal 2.84, alb 2.3. suspect wt loss but wt hx hard to interpret -?accuracy of bed scale wts Wound Type: Wound Consult Pending (red area coccyx per nursing) 12/02/24 144.6 lb Wt Readings from Last 50 Encounters: 11/30/24 73.4 kg (161 lb 14.4 oz) 07/14/23 68.5 kg (151 lb) 08/01/22 83 kg (183 lb) Labs and meds reviewed: Scheduled Meds[1] Continuous Meds[2] Lab Results Component Value Date GLUCOSE 132 (H) 12/02/2024 CALCIUM 8.4 (L) 12/02/2024 NA 139 12/02/2024 K 3.3 (L) 12/02/2024 CO2 24 12/02/2024 CL 105 12/02/2024 BUN 47 (H) 12/02/2024 CREATININE 1.92 (H) 12/02/2024 Lab Results Component Value Date WBC 8.8 12/02/2024 HGB 11.4 (L) 12/02/2024 HCT 35.9 12/02/2024 MCV 84.3 12/02/2024 PLT 316 12/02/2024 Lab Results Component Value Date ALT 9 12/02/2024 AST 29 12/02/2024 ALKPHOS 83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 Facility-Administered Medications: acetaminophen (Tylenol) tablet 650 mg, 650 mg, Oral, q6h PRN OR acetaminophen (Tylenol) suppository 650 mg, 650 mg, Rectal, q6h PRN, Freddie Bernard MD amLODIPine (Norvasc) tablet 5 mg, 5 mg, Oral, Daily, Freddie Bernard MD, 5 mg at 12/01/24922 [START ON 12/02/2024] aspirin EC tablet 81 mg, 81 mg, Oral, Daily, Freddie Bernard MD enoxaparin (Lovenox) syringe 40 mg, 40 mg, SubCUTAneous, Daily, Freddie Bernard MD, 40 mg at 12/01/24922 melatonin tablet 3 mg, 3 mg, Oral, Nightly PRN, Freddie Bernard MD metoprolol tartrate (Lopressor) tablet 100 mg, 100 mg, Oral, BID, Freddie Bernard MD, 100 mg at 12/01/24922 ondansetron ODT (Zofran-ODT) disintegrating tablet 4 mg, 4 mg, Oral, q8h PRN OR ondansetron (Zofran) injection 4 mg, 4 mg, IntraVENous, q6h PRN, Freddie Bernard MD [START ON 12/02/2024] pantoprazole (ProtoNix) EC tablet 40 mg, 40 mg, Oral, qAM AC, Freddie Bernard MD polyethylene glycol (PEG) 3350 (Miralax) packet 17 g, 17 g, Oral, Daily PRN, Freddie Bernard MD therapeutic multivitamin-minerals (Theragran-M) tablet, 1 tablet, Oral, Daily, Freddie Bernard MD, 1 tablet at 12/01/24922 [5] No Known Allergies [facility] 12-01-2024 Note Attending History an d Physical Admit Date: 11/30/2024 PCP: Yenifer Schulz DO CHIEF COMPLAINT: dementia , agitation Reason for Admission: agitation, NORI History Obtained From: patient HISTORY OF PRESENT ILLNESS: Yelena is a 89 y.o. female with past medical history below who presents with chief complaint listed above. Known H/O dementia and lives with sister . Sent in for agitation and failure to thrive, decreased mobility Tried to call sister over the phone ,unsuccessful Patient lying comfortably on bed, knows name, age, but not month. Does not know why she was sent to ED. Denies any chest pain, SOB, abdominal pain, nausea or vomiting. Difficult to move right leg as she has bad right knee Past Medical History: Medical History[1] Past Surgical History: Surgical History[2] Social History: Social History Socioeconomic History Marital status: Spouse name: Not on file Number of children: Not on file Years of education: Not on file Highest education level: Not on file Occupational History Not on file Tobacco Use Smoking status: Former Smokeless tobacco: Never Substance and Sexual Activity Alcohol use: No Drug use: No Sexual activity: Not on file Other Topics Concern Not on file Social History Narrative Not on file Social Drivers of Health Financial Resource Strain: Not on file Food Insecurity: Not on file Transportation Needs: No Transportation Needs (07/11/2023) PRAPARE - Transportation Lack of Transportation (Medical): No Lack of Transportation (Non-Medical): No Physical Activity: Not on file Stress: Not on file Social Connections: Not on file Intimate Partner Violence: Not At Risk (12/01/2024) Humiliation, Afraid, Rape, and Kick questionnaire Fear of Current or Ex-Partner: No Emotionally Abused: No Physically Abused: No Sexually Abused: No Housing Stability: Low Risk (07/11/2023) Housing Stability Vital Sign Unable to Pay for Housing in the Last Year: No Number of Places Lived in the Last Year: 1 Unstable Housing in the Last Year: No Family History: Family History[3] Medications Prior to Admission: Current Medications[4] Medications Reconciliation: Medication were reviewed and verified as accurate with patient. Allergies: Allergies[5] REVIEW OF SYSTEMS: 10 point ROS obtained, as per HPI, otherwise NEG Vitals: BP 137/77 (BP Location: Left arm, Patient Position: Lying) Pulse (!) 123 Temp 36.7 ?C (98 ?F) (Oral) Resp 17 Ht 5' 4" (1.626 m) Wt 161 lb 14.4 oz (73.4 kg) SpO2 95% BMI 27.79 kg/m? BMI Classification: Pulse Ox: SpO2 Av.9 % Min: 94 % Max: 99 % Supplemental O2: PHYSICAL EXAM: Physical Exam Constitutional: Appearance: Normal appearance. Cardiovascular: Rate and Rhythm: Normal rate and regular rhythm. Heart sounds: Normal heart sounds. Pulmonary: Effort: Pulmonary effort is normal. Breath sounds: Normal breath sounds. Abdominal: General: Bowel sounds are normal. Palpations: Abdomen is soft. Musculoskeletal: Right lower leg: No edema. Left lower leg: No edema. Neurological: Mental Status: She is alert. Comments: Able to tell me her name and age, not month. Appropriate in conversion. No focal weakness noted. Strength on right lower extremity 1-2/5 , says due to bad knee. No drift on upper extremities. DATA: CBC: Recent Labs 11/30/242244 WBC 12.6* RBC 5.36* HGB 14.5 HCT 44.1 MCV 82.3 RDW 13.9 PLT 318 BMP: Recent Labs 11/30/242244 NA 140 K 3.5 CL 101 CO2 24 BUN 25* CREATININE 1.26* GLUCOSE 120* CALCIUM 9.7 ANIONGAP 15* LIVER PROFILE: Recent Labs 11/30/242244 AST 22 ALT 9 BILITOT 1.3* ALKPHOS 103 PROT 7.6 PT/INR: No results for input(s): "PROTIME", "INR" in the last 72 hours. CARDIAC ENZYMES: No results for input(s): "TROPONINI" in the last 72 hours. Procalcitonin: No results found for: "PROCAL" Urine Culture: No results found for this or any previous visit. COVID-19 PCR: No results for input(s): "COVID19" in the last 72 hours. I reviewed: [x] laboratory results [x] radiographic results At the time of today's encounter. Pt was advised of the results. Data: (CAT1) Reviewed 1 notes from different specialty or health system (each=1). (LOW: 2x CAT1 or independent historian MOD: 3x CAT1 or 1x CAT3 EXTENSIVE: 3x CAT1 and 1x CAT3) Assessment Discussed management with the ED provider and agree with hospitalization. Acute, acute on chronic, unstable/uncontrolled chronic problems/diagnoses: Dementia with behavioral changes Failure to thrive NORI Hypomagnesemia Elevated HS troponin - tending down, no chest pain, EKG- right BBB- similar to previous EKG. CTA chest negative for PE. Get ECHO Mild leucocytosis Thyroid and parathyroid mass - check TSH Mild leucocytosis - check UA Unable to move right leg due to pain- mostly in knee, get X ray knee and pelvis. HTN Stable chronic problems (more content not included)... [facility] 12-01-2024 History and physical note Attending History and Physical Admit Date: 11/30/2024 PCP: Yenifer Schulz DO CHIEF COMPLAINT: dementia , agitation Reason for Admission: agitation, NORI History Obtained From: patient HISTORY OF PRESENT ILLNESS: Yelena is a 89 y.o. female with past medical history below who presents with chief complaint listed above. Known H/O dementia and lives with sister . Sent in for agitation and failure to thrive, decreased mobility Tried to call sister over the phone ,unsuccessful Patient lying comfortably on bed, knows name, age, but not month. Does not know why she was sent to ED. Denies any chest pain, SOB, abdominal pain, nausea or vomiting. Difficult to move right leg as she has bad right knee Past Medical History: Medical History[1] Past Surgical History: Surgical History[2] Social History: Social History Socioeconomic History Marital status: Spouse name: Not on file Number of children: Not on file Years of education: Not on file Highest education level: Not on file Occupational History Not on file Tobacco Use Smoking status: Former Smokeless tobacco: Never Substance and Sexual Activity Alcohol use: No Drug use: No Sexual activity: Not on file Other Topics Concern Not on file Social History Narrative Not on file Social Drivers of Health Financial Resource Strain: Not on file Food Insecurity: Not on file Transportation Needs: No Transportation Needs (07/11/2023) PRAPARE - Transportation Lack of Transportation (Medical): No Lack of Transportation (Non-Medical): No Physical Activity: Not on file Stress: Not on file Social Connections: Not on file Intimate Partner Violence: Not At Risk (12/01/2024) Humiliation, Afraid, Rape, and Kick questionnaire Fear of Current or Ex-Partner: No Emotionally Abused: No Physically Abused: No Sexually Abused: No Housing Stability: Low Risk (07/11/2023) Housing Stability Vital Sign Unable to Pay for Housing in the Last Year: No Number of Places Lived in the Last Year: 1 Unstable Housing in the Last Year: No Family History: Family History[3] Medications Prior to Admission: Current Medications[4] Medications Reconciliation: Medication were reviewed and verified as accurate with patient. Allergies: Allergies[5] REVIEW OF SYSTEMS: 10 point ROS obtained, as per HPI, otherwise NEG Vitals: BP 137/77 (BP Location: Left arm, Patient Position: Lying) Pulse (!) 123 Temp 36.7 C (98 F) (Oral) Resp 17 Ht 5' 4" (1.626 m) Wt 161 lb 14.4 oz (73.4 kg) SpO2 95% BMI 27.79 kg/m BMI Classification: Pulse Ox: SpO2 Av.9 % Min: 94 % Max: 99 % Supplemental O2: PHYSICAL EXAM: Physical Exam Constitutional: Appearance: Normal appearance. Cardiovascular: Rate and Rhythm: Normal rate and regular rhythm. Heart sounds: Normal heart sounds. Pulmonary: Effort: Pulmonary effort is normal. Breath sounds: Normal breath sounds. Abdominal: General: Bowel sounds are normal. Palpations: Abdomen is soft. Musculoskeletal: Right lower leg: No edema. Left lower leg: No edema. Neurological: Mental Status: She is alert. Comments: Able to tell me her name and age, not month. Appropriate in conversion. No focal weakness noted. Strength on right lower extremity 1-2/5 , says due to bad knee. No drift on upper extremities. DATA: CBC: Recent Labs 11/30/24 2245 WBC 12.6* RBC 5.36* HGB 14.5 HCT 44.1 MCV 82.3 RDW 13.9 PLT 318 BMP: Recent Labs 11/30/24 2245 NA 140 K 3.5 CL 101 CO2 24 BUN 25* CREATININE 1.26* GLUCOSE 120* CALCIUM 9.7 ANIONGAP 15* LIVER PROFILE: Recent Labs 11/30/24 2245 AST 22 ALT 9 BILITOT 1.3* ALKPHOS 103 PROT 7.6 PT/INR: No results for input(s): "PROTIME", "INR" in the last 72 hours. CARDIAC ENZYMES: No results for input(s): "TROPONINI" in the last 72 hours. Procalcitonin: No results found for: "PROCAL" Urine Culture: No results found for this or any previous visit. COVID-19 PCR: No results for input(s): "COVID19" in the last 72 hours. I reviewed: [x] laboratory results [x] radiographic results At the time of today's encounter. Pt was advised of the results. Data: (CAT1) Reviewed 1 notes from different specialty or health system (each=1). (LOW: 2x CAT1 or independent historian MOD: 3x CAT1 or 1x CAT3 EXTENSIVE: 3x CAT1 and 1x CAT3) Assessment Discussed management with the ED provider and agree with hospitalization. Acute, acute on chronic, unstable/uncontrolled chronic problems/diagnoses: Dementia with behavioral changes Failure to thrive NORI Hypomagnesemia Elevated HS troponin - tending down, no chest pain, EKG- right BBB- similar to previous EKG. CTA chest negative for PE. Get ECHO Mild leucocytosis Thyroid and parathyroid mass - check TSH Mild leucocytosis - check UA Unable to move right leg due to pain- mostly in knee, get X ray knee and pelvis. HTN Stable chronic problems affecting care, new non-acute diagnoses: Plan As a result of the above findings & factors, the following mgmt was pursued: - admit to [facility] - iv hydration - check TSH, vitamin B12, folate - USG for neck mass - send UA - seems to have pain and difficulty moving right LE - will get X ray Knee and pelvis. Get venous duplex. - get procal and crp - gentle hydration - repeat CBC , CMP in am - am labs, replace lytes prn - PT/OT/CM/SW - delirium precautions: increase activity - DVT prophylaxis: enoxaparin and encourage ambulation Advance Directive: Full Code Anticipated Discharge Extended Emergency Contact Information Primary Emergency Contact: Julianne Bravo Mobile Relation: Sister Preferred language: [place] [employer] Assistant needed? No [1] Past Medical History: Diagnosis Date Anxiety Arthritis Hypertension [2] Past Surgical History: Procedure Laterality Date DILATION AND CURETTAGE OF UTERUS HYSTERECTOMY TONSILLECTOMY AND ADENOIDECTOMY (HISTORICAL) [3] No family history on file. [4] Current Facility-Administered Medications: acetaminophen (Tylenol) tablet 650 mg, 650 mg, Oral, q6h PRN OR acetaminophen (Tylenol) suppository 650 mg, 650 mg, Rectal, q6h PRN, Freddie Bernard MD amLODIPine (Norvasc) tablet 5 mg, 5 mg, Oral, Daily, Freddie Bernard MD, 5 mg at 12/01/24922 [START ON 12/02/2024] aspirin EC tablet 81 mg, 81 mg, Oral, Daily, Freddie Bernard MD enoxaparin (Lovenox) syringe 40 mg, 40 mg, SubCUTAneous, Daily, Freddie Bernard MD, 40 mg at 12/01/24922 melatonin tablet 3 mg, 3 mg, Oral, Nightly PRN, Freddie Bernard MD metoprolol tartrate (Lopressor) tablet 100 mg, 100 mg, Oral, BID, Freddie Bernard MD, 100 mg at 12/01/24922 ondansetron ODT (Zofran-ODT) disintegrating tablet 4 mg, 4 mg, Oral, q8h PRN OR ondansetron (Zofran) injection 4 mg, 4 mg, IntraVENous, q6h PRN, Freddie Bernard MD [START ON 12/02/2024] pantoprazole (ProtoNix) EC tablet 40 mg, 40 mg, Oral, qAM AC, Freddie Bernard MD polyethylene glycol (PEG) 3350 (Miralax) packet 17 g, 17 g, Oral, Daily PRN, Freddie Bernard MD therapeutic multivitamin-minerals (Theragran-M) tablet, 1 tablet, Oral, Daily, Freddie Bernard MD, 1 tablet at 12/01/24922 [5] No Known Allergies documented in this encounter [facility] 12-01-2024 Note OCCUPATIONAL THERAPY [facility] Initial Evaluation Name/MRN: Yelena Chandra ([id number]) Evaluation Date: 12/01/2024 Date of : 1935 Admission Date: 11/30/2024 10:21 PM Age: 89 y.o. Room/Bed: 222-04/222-04 A Discharge Recommendation: Nursing Home Facility Equipment Needed: No Assessment IMPRESSION: Pt admitted to ED on 12/01 with dementia and failure to thrive. Per notes and family report, the home is in disarray and is very cluttered and unsafe. Social functional history was difficult to obtain d/t poor cognition. Upon eval, pt required SBA for bed mobility, Min A for transfers, Min A for mobility, and SBA-Min A for ADLs. Pt would benefit from skilled OT services in order to increase safety and independence in occupational tasks. Recommend SNF upon DC. Admitting Diagnosis: dementia Performance Deficits /Impairments: Increased Pain, Decreased Functional Mobility, Decreased ADL status, Decreased Strength, Decreased Safety Awareness, Decreased Endurance, Decreased Balance, and Decreased Cognition Prognosis: Fair Decision Making: Medium Complexity Subjective Pt very pleasant and agreeable to therapy, confused during the session but jovial- joking with therapist. Pts HR was 129-142 during session. It was stable at this rate and RN gave OK for BSC transfer. BP was 104/75 Spo2 > 90% on RA Pain: Pt denies any current pain. 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 Fall Risk: Velarde Fall Risk Score: 60 (High Risk) Precautions/Restrictions: Lines/Drains/Airways: tele, purewick Fall Precautions Family/Caregiver Present: none Overall Cognitive Status: Exceptions - Following commands: follows one step commands with increased time, follows one step commands with repetition, follows multi-step commands with increased time, and follows multi-step commands with repetition - Attention span: difficulty attending to directions - Memory: decreased recall of recent events and decreased short term memory - Safety judgement: decreased awareness of need for assistance and decreased awareness of need for safety - Problem solving: assistance required to generate solutions, assistance required to implement solutions, assistance required to identify errors made, and assistance required to correct errors made - Insights: not aware of deficits - Initiation: requires cues for some - Sequencing: requires cues for all Overall Orientation Status: Oriented to Person, Disoriented to time- Believes current year is 1918. Vision: Not Assessed Hearing: normal Social/Functional History Pt poor historian d/t history of dementia, all information provided by pt to the best of their knowledge. Information gathered from PT eval note Patient admitted from home. Lives With: Parent - Reports living with parents and reports they are in their 70s despite self identifying she is 89 years old. Per chart, house is in deplorable condition with hoarder-like tendencies Type of Home: single family home Home Layout: Two Level Home Home Access: Stairs to Enter without Rails (# of stairs: 3) Bathroom Shower/Tub: Unable to identify Toilet: Unable to identify Home Equipment: Unknown Homemaking Responsibilities: Independent Receives Help From: Family Active Senior Radiation Therapist: Yes Prior Level of Function Prior Level of ADL Function: Independent Prior Level of Mobility: Independent; Device: None Prior Level of Transfers: Independent Objective ADLs LE Dressing: SBA Toileting: Min Assist Pt continent of stool, reporting need to use the bathroom. She completed BSC level toileting. Min A required for posterior hygiene after voiding a BM. She adjusted her socks with SBA while sitting at EOB. Upper Extremity Assessment AROM: WFL PROM: Not assessed this session Strength: WFL Bed Mobility Supine to sit: SBA Sit to supine: SBA Scooting: SBA Pt was able to complete bed mobility with SBA. She required additional time. HOB wa elevated. She denied dizziness with positional changes. Pt had increased difficulty during sit to supine but still did not require physical assist. Transfers/Mobility Sit to stand: Min Assist Stand to sit: Min Assist Bedside commode: Contact Guard Standing balance: Contact Guard Functional mobility: Min Assist Pt stood from EOB to FWW with Min A initially. She pulled up on the walker and required cues to correct hand p (more content not included)... [facility] 12-01-2024 Note Formatting of this n ote might be different from the original. S/W, Hoarding Patient in from home with Sister (?) reports of pain all over, patient agitated, reported to have Dementia. Documentation notes EMS report the house is in terrible shape, it is a hoarding situation, barely a path to walk through. No EMS Run Sheet available in Media to review. Chart reviewed. Call placed to patient Sister Julianne, no answer, LVM with call back number. PT did see and SNF is recommended. [facility] 12-01-2024 Note Formatting of this n ote might be different from the original. S/W, Hoarding Patient in from home with Sister (?) reports of pain all over, patient agitated, reported to have Dementia. Documentation notes EMS report the house is in terrible shape, it is a hoarding situation, barely a path to walk through. No EMS Run Sheet available in Media to review. Chart reviewed. Call placed to patient Sister Julianne, no answer, LVM with call back number. PT did see and SNF is recommended. [facility] 12-01-2024 Note PHYSICAL THERAPY [facility] Initial Evaluation Name/MRN: Yelena Chandra ([id number]) Evaluation Date: 12/01/2024 Date of : 1935 Admission Date: 11/30/2024 10:21 PM Age: 89 y.o. Room/Bed: [facility]/232-08 A Discharge Recommendation: Nursing Home Facility Equipment Needed: No Other: TBD at next level of care Assessment IMPRESSION: Pt admitted to ED on 12/01/24 with dementia and failure to thrive. Prior to admission, pt lived with sister per chart review and performed mobility independently. Upon eval, pt required Mod Ax1 for bed mobility, Min Ax1 for transfers, Mod Ax1 for gait/ambulation with fww. Pt would benefit from skilled PT services in order to increase safety and independence in functional mobility and daily tasks. Recommend SNF upon DC. Admitting Diagnosis: Dementia, failure to thrive Prognosis: fair Performance Deficits /Impairments: Increased Pain, Decreased Functional Mobility, Decreased ADL status, Decreased Strength, Decreased Safety Awareness, Decreased Endurance, Decreased Balance, and Decreased Cognition Decision Making: Medium Complexity Subjective Pt pleasantly confused but agreeable to PT evaluation. RN cleared pt for session. 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 Fall Risk: (High Risk) Precautions/Restrictions: Lines/Drains/Airways: tele, destinyck Fall Precautions Family/Caregiver Present: none Overall Cognitive Status: Exceptions - Following commands: follows one step commands with increased time, follows one step commands with repetition, follows multi-step commands with increased time, and follows multi-step commands with repetition - Attention span: difficulty attending to directions - Memory: decreased recall of recent events and decreased short term memory - Safety judgement: decreased awareness of need for assistance and decreased awareness of need for safety - Problem solving: assistance required to generate solutions, assistance required to implement solutions, assistance required to identify errors made, and assistance required to correct errors made - Insights: not aware of deficits - Initiation: requires cues for some - Sequencing: requires cues for all Overall Orientation Status: Oriented to Place and Oriented to Person, Believes current year is 1955. Vision: Not Assessed Hearing: normal Social/Functional History Pt poor historian d/t history of dementia, all information provided by pt to the best of their knowledge Patient admitted from home. Lives With: Parent - Reports living with parents and reports they are in their 70s despite self identifying she is 89 years old. Per chart, house is in deplorable condition with hoarder-like tendencies Type of Home: single family home Home Layout: Two Level Home Home Access: Stairs to Enter without Rails (# of stairs: 3) Bathroom Shower/Tub: Unable to identify Toilet: Unable to identify Home Equipment: Unknown Homemaking Responsibilities: Independent Receives Help From: Family Active Senior Radiation Therapist: Yes Prior Level of Function Prior Level of ADL Function: Independent Prior Level of Mobility: Independent; Device: None Prior Level of Transfers: Independent Objective Lower Extremity Assessment AROM: WFL Strength: Pt demonstrates appropriate B LE and quad strength in order to safely participate in OOB mobility. Pain noted with RLE MMT Sensation: WFL Bed Mobility: Supine to sit: Mod Assist Sit to supine: Mod Assist Scooting: Mod Assist Mod Ax1 for all bed mobility. Severely limited d/t pain in RLE and poor overall tolerance. Manual assist required. Fair balance at EOB. Transfers Sit to stand: Min Assist Stand to sit: Min Assist STS x2 from EOB completed with fww at Min Ax1. Poor sequencing noted. Manual assist for sequencing and initiation noted. No LOB d/t increased support required. Ambulation Ambulation 1 Assistive device(s) used: Front wheeled walker Assist level: Mod Assist Distance (ft): 6ft x1 Quality of gait: antalgic, step to pattern, B foot clearance, shuffling, wide GILLIAN, slow kathleen, path deviations, instability through all phases Pt completed short in room gait assessment at Mod Ax1. Moderately antalgic, with poor overall ability to sequence. Manual assist for weight shifting and limb ad (more content not included)... [facility] 12-01-2024 Emergency department Note Report called to SUPERVISOR LIME [facility] 12-01-2024 Emergency department Note Report called to SUPERVISOR LIME Attempted multiple times using different techniques to obtain urine sample via straight cath and external urinary catheter. Unsuccessful. PT screamed and strike nurses with open and closed hands. PT calls out for nurses to stop. Physician notified. PT denies pain in pelvic region. EMERGENCY DEPARTMENT ENCOUNTER Pt Name: Yelena Chandra Birthdate 1935 Date of evaluation: 11/30/2024 ED Provider: Jake Ramos APRN - RATE ENGINEER This patient was seen in conjunction with Dr. Skelton CHIEF COMPLAINT Chief Complaint Patient presents with Failure To Thrive HISTORY OF PRESENT ILLNESS (Location/Symptom, Timing/Onset, Context/Setting, Quality, Duration, Modifying Factors, Severity) Note limiting factors. I wore appropriate PPE for the entirety of this encounter. HPI Yelena Chandra is a 89 y.o. who presents to the emergency department with chief complaint of brought in by EMS after the patient's sister called, the patient lives with her sister she has dementia, they state that the house is in rather terrible shape it is a bit of a hoarding situation with barely any paths to walk through throughout the house. The patient told her sister to call EMS and then when they got there she started swearing at them and yelling at them. She has been agitated here she is alert to self and place confused to time she has a history of dementia. Initial call was for just complaints of pain all over. Nursing Notes were reviewed. Limitations to history: None Outside historians: EMS REVIEW OF SYSTEMS Review of Systems Constitutional: Negative for activity change, appetite change, chills and fever. HENT: Negative for congestion, nosebleeds, sinus pain and trouble swallowing. Eyes: Negative for pain and visual disturbance. Respiratory: Negative for cough, chest tightness and shortness of breath. Cardiovascular: Negative for chest pain. Gastrointestinal: Negative for abdominal pain, diarrhea, nausea and vomiting. Genitourinary: Negative for dysuria, hematuria, pelvic pain, vaginal bleeding, vaginal discharge and vaginal pain. Musculoskeletal: Positive for arthralgias and myalgias. Negative for back pain, joint swelling and neck stiffness. Skin: Negative for rash and wound. Neurological: Negative for syncope, weakness, light-headedness and headaches. Hematological: Negative for adenopathy. Psychiatric/Behavioral: Positive for agitation. Negative for confusion. All other systems reviewed and are negative. Pertinent positives and negatives as per HPI. PAST MEDICAL HISTORY Medical History[1] SURGICAL HISTORY Surgical History[2] CURRENT MEDICATIONS Previous Medications AMLODIPINE (NORVASC) 5 MG TABLET Take 1 tablet (5 mg) by mouth daily. ASPIRIN 81 MG EC TABLET Take 81 mg by mouth daily. MELATONIN 3 MG TABLET Take 1 tablet (3 mg) by mouth Nightly as needed for sleep. METOPROLOL TARTRATE (LOPRESSOR) 100 MG TABLET Take 1 tablet by mouth 2 times daily. Pt thought this was stopped and started on another BP med - does not know the name PANTOPRAZOLE (PROTONIX) 40 MG EC TABLET Take 1 tablet (40 mg) by mouth every morning (before breakfast). Do not crush, chew, or split. Do not start before August 07, 2022. SERTRALINE (ZOLOFT) 25 MG TABLET Take 1 tablet (25 mg) by mouth daily for 2 doses. SERTRALINE (ZOLOFT) 50 MG TABLET Take 1 tablet (50 mg) by mouth daily. Do not start before July 25, 2023. THERAPEUTIC MULTIVITAMIN-MINERALS (THERAGRAN-M) TABLET Take 1 tablet by mouth daily. ALLERGIES Patient has no known allergies. FAMILY HISTORY Family History[3] SOCIAL HISTORY Social History[4] SCREENINGS [address] [place] Coma Scale Best Eye Response: Spontaneous Best Verbal Response: Confused Best Motor Response: Follows commands [place] [address] [place] Coma Scale Score: 14 PHYSICAL EXAM ED Triage Vitals Temp Heart Rate Resp BP 11/30/24222611/30/24222611/30/24222611/30/242226 36.4 C (97.6 F) 106 18 106/70 SpO2 Temp Source Heart Rate Source Patient Position 11/30/24222611/30/24222611/30/24232911/30/242329 97 % Oral Monitor Lying BP Location FiO2 (%) 11/30/24 2330 -- Left arm Physical Exam Vitals and nursing note reviewed. Constitutional: General: She is not in acute distress. Appearance: Normal appearance. She is not ill-appearing or toxic-appearing. HENT: Head: Normocephalic and atraumatic. Right Ear: External ear normal. Left Ear: External ear normal. Mouth/Throat: Mouth: Mucous membranes are moist. Pharynx: Oropharynx is clear. Eyes: Extraocular Movements: Extraocular movements intact. Conjunctiva/sclera: Conjunctivae normal. Pupils: Pupils are equal, round, and reactive to light. Neck: Comments: Large mass left lateral neck under the jawline. Cardiovascular: Rate and Rhythm: Normal rate and regular rhythm. Pulses: Normal pulses. Heart sounds: Normal heart sounds. No murmur heard. Pulmonary: Effort: Pulmonary effort is normal. No respiratory distress. Breath sounds: Normal breath sounds. No stridor. No wheezing or rhonchi. Abdominal: Comments: The abdomen is soft, nondistended and nontender. There is no rebound tenderness or guarding. Bowel sounds are normal. Musculoskeletal: Cervical back: Normal range of motion and neck supple. No rigidity or tenderness. Comments: There is intact range of motion of the shoulders, elbows, wrists bilaterally. Radial pulses are 2+ bilaterally and symmetric. There is full range of motion of all the joints of the upper extremities. There is no tenderness to the cervical, thoracic, lumbar spine. The pelvis is stable hips are nontender. There is no pain with range of motion of the hips, knees, ankles or feet bilaterally. Dorsalis pedis pulses are 2+ bilaterally and symmetric. Skin: General: Skin is warm and dry. Capillary Refill: Capillary refill takes less than 2 seconds. Coloration: Skin is not jaundiced or pale. Findings: No bruising or erythema. Neurological: Mental Status: She is alert. Cranial Nerves: No cranial nerve deficit. Sensory: No sensory deficit. Motor: No weakness. Coordination: Coordination normal. Comments: Alert and oriented place, person, confused to time, speech is clear no strength or sensory deficits in the extremities, NIH 1 for confusion. Per EMS family told them this is her baseline. Psychiatric: Comments: Agitated but redirectable DIAGNOSTIC RESULTS Procedures/EKG: EKG was reviewed by myself. Physician EKG interpretation can be found in [facility] RADIOLOGY (Per Emergency Physician): Interpretation per the Radiologist below, if available at the time of this note: XR chest 1 view Final Result 1. No acute consolidation. 2. Lobular, mass-like opacity projecting over the thoracic inlet suggesting thyromegaly, mildly increased in the interval. Follow-up as indicated. Report Dictated on Electronically Signed By: Zhou Gunn MD Electronically Signed Date/Time: 11/30/2024 11:[address] head wo IV contrast (Results Pending) CTA chest angiogram w and/or wo IV contrast (Results Pending) CT soft tissue neck wo IV contrast (Results Pending) ED BEDSIDE ULTRASOUND: Performed by ED Physician - none LABS: Labs Reviewed COMPREHENSIVE METABOLIC PANEL - Abnormal Result Value SODIUM 140 POTASSIUM 3.5 CHLORIDE 101 CARBON DIOXIDE 24 ANION GAP 15 (*) UREA NITROGEN 25 (*) CREATININE 1.26 (*) GLUCOSE 120 (*) CALCIUM 9.7 AST (SGOT) 22 ALT 9 ALKALINE PHOSPHATASE 103 ALBUMIN 2.9 (*) BILIRUBIN, TOTAL 1.3 (*) TOTAL PROTEIN 7.6 eGFR 41.4 (*) HIGH SENSITIVITY TROPONIN, SERIAL BASELINE - Abnormal Troponin HS Serial Baseline 218 (*) MAGNESIUM - Abnormal MAGNESIUM 1.5 (*) Narrative: Higher values can be expected in females during menses. CBC (HEMOGRAM) - Abnormal Auto WBC 12.6 (*) RBC 5.36 (*) Hemoglobin 14.5 Hematocrit 44.1 MCV 82.3 MCH 27.1 MCHC 32.9 RDW 13.9 Platelets 318 MPV 10.4 CK - Normal CK 49 COMPLETE URINALYSIS WITH REFLEX TO CULTURE HIGH SENSITIVITY TROPONIN, SERIAL, SECOND TEST All other labs were within normal range or not returned as of this dictation. EMERGENCY DEPARTMENT COURSE and DIFFERENTIAL DIAGNOSIS/MDM: Vitals: Vitals: 11/30/24 2227 11/30/24 2330 BP: 106/70 (!) 146/76 BP Location: Left arm Patient Position: Lying Pulse: 106 103 Resp: 18 22 Temp: 36.4 C (97.6 F) TempSrc: Oral SpO2: 97% 99% Weight: 73.4 kg (161 lb 14.4 oz) Height: 1.626 m (5' 4") ED Course as of 12/01/24151Dec 01, 2024 0046 Troponin HS Serial Baseline(!!): 218 [MS] 0150 XR chest 1 view 1. No acute consolidation. 2. Lobular, mass-like opacity projecting over the thoracic inlet suggesting thyromegaly, mildly increased in the interval. Follow-up as indicated. [MS] 0151 CT soft tissue neck wo IV contrast IMPRESSION: 1. 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 Further evaluation and management is warranted. 2. Enlarged heterogeneous thyroid gland observed with multiple hypodensities and foci of calcification. Largest lesion measures up to 3.9 cm, for which thyroid ultrasound is recommended for further investigation as neoplasm is not excluded. 3. Other chronic findings as discussed. [MS] 0151 CT head wo IV contrast IMPRESSION: No acute intracranial abnormality. Chronic microvascular change. [MS] 0151 CTA chest angiogram w and/or wo IV contrast IMPRESSION: 1. No evidence of acute pulmonary embolism. 2. 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 Neoplastic process is not excluded in this context. 3. Partial visualization of left parotid gland heterogeneous mass, better characterized on dedicated neck CT. Again, neoplasm is not entirely excluded and further evaluation and management is warranted. 4. Other chronic findings as discussed. [MS] 0151 2h Troponin HS (Serial 2nd Troponin)(!): 196 [MS] ED Course User Index [MS] Ghazal Cuiy, Diagnoses as of 12/01/24 0152 Dementia, unspecified dementia severity, unspecified dementia type, unspecified whether behavioral, psychotic, or mood disturbance or anxiety (HCC) Agitation Acute kidney injury superimposed on chronic kidney disease (HCC) (HCC) Elevated troponin Neck mass Abnormal chest x-ray The patient presented with chief complaint of with chief complaint of brought in by EMS after the patient's sister called, the patient lives with her sister she has dementia, they state that the house is in rather terrible shape it is a bit of a hoarding situation with barely any paths to walk through throughout the house. The patient told her sister to call EMS and then when they got there she started swearing at them and yelling at them. She has been agitated here she is alert to self and place confused to time she has a history of dementia. Initial call was for just complaints of pain all over.. The differential diagnosis associated with this patient's presentation includes neck cancer, rhabdomyolysis, kidney injury, electrolyte disturbance, urinary tract infection, brain mass, pneumonia. Our workup consisted of ordering/reviewing: CBC, magnesium, CK, CMP, troponin, urinalysis, EKG, CTA chest, CT head, CT soft tissue neck. Diagnostic tests considered but not performed: None To aid in management, I performed an independent interpretation of EKG(s) EKG per my interpretation showed sinus rhythm with PACs at a rate of 105 Xray(s) chest x-ray per my interpretation shows no definitive infiltrate but an abnormally widened mediastinum with concern for a mediastinal mass. I also reviewed external records from [facility]. I discussed their care with Admitting team Dr. Bernard. Consideration for escalation of care with: Patient will be admitted for likely placement will treat UTI as present obtain scans likely admission. The patient will be final disposition by Dr. Skelton. Patient is in agreement with this plan. Medications magnesium sulfate IVPB premix 2,000 mg (2,000 mg IntraVENous New Bag 11/30/24 4874) sodium chloride 0.9 % bolus 500 mL (has no administration in time range) aspirin chewable tablet 324 mg (has no administration in time range) REVAL: CRITICAL CARE TIME None CONSULTS: None PROCEDURES: Unless otherwise noted below, none Procedures Patients symptoms are consistent with sepsis, severe sepsis, or septic shock (If yes use ".sepsiscoremeasure"): no FINAL IMPRESSION 1. Dementia, unspecified dementia severity, unspecified dementia type, unspecified whether behavioral, psychotic, or mood disturbance or anxiety (HCC) 2. Agitation 3. Acute kidney injury superimposed on chronic kidney disease (HCC) (HCC) 4. Elevated troponin 5. Neck mass 6. Abnormal chest x-ray DISPOSITION PATIENT REFERRED TO: No follow-up provider specified. DISCHARGE MEDICATIONS: New Prescriptions No medications on file (Comment: Please note this report has been produced using speech recognition software and may contain errors related to that system including errors in grammar, punctuation, and spelling, as well as words and phrases that may be inappropriate. If there are any questions or concerns please feel free to contact the dictating provider for clarification.) GENEVA Roque CNP (electronically signed) Emergency Medicine Provider GENEVA Roque CNP 12/01/24 0003 [1] Past Medical History: Diagnosis Date Anxiety Arthritis Hypertension [2] Past Surgical History: Procedure Laterality Date DILATION AND CURETTAGE OF UTERUS HYSTERECTOMY TONSILLECTOMY AND ADENOIDECTOMY (HISTORICAL) [3] No family history on file. [4] Social History Socioeconomic History Marital status: Tobacco Use Smoking status: Former Smokeless tobacco: Never Substance and Sexual Activity Alcohol use: No Drug use: No Social Drivers of Health Transportation Needs: No Transportation Needs (07/11/2023) PRAPARE - Transportation Lack of Transportation (Medical): No Lack of Transportation (Non-Medical): No Intimate Partner Violence: Not At Risk (07/11/2023) Humiliation, Afraid, Rape, and Kick questionnaire Fear of Current or Ex-Partner: No Emotionally Abused: No Physically Abused: No Sexually Abused: No Housing Stability: Low Risk (07/11/2023) Housing Stability Vital Sign Unable to Pay for Housing in the Last Year: No Number of Places Lived in the Last Year: 1 Unstable Housing in the Last Year: No Cosigned by Ghazal Skelton DO at 12/01/2024 2:34 AM EDT Pt presents via EMS for failure to thrive. Asked her sister to call because she was in pain and couldn't walk. Hx dementia. Smells of urine upon arrival. [facility] documented in this encounter [facility] 12-01-2024 Emergency department Note Attempted multiple times using different techniques to obtain urine sample via straight cath and external urinary catheter. Unsuccessful. PT screamed and strike nurses with open and closed hands. PT calls out for nurses to stop. Physician notified. PT denies pain in pelvic region. [facility] 12-01-2024 Note 1. 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 Further evaluation and management is warranted. 2. Enlarged heterogeneous thyroid gland observed with multiple hypodensities and foci of calcification. Largest lesion measures up to 3.9 cm, for which thyroid ultrasound is recommended for further investigation as neoplasm is not excluded. 3. Other chronic findings as discussed. Report Dictated on Electronically Signed By: Matt Segura MD Electronically Signed Date/Time: 12/01/2024 1:01 AM EDT [facility] 11-30-2024 Emergency department Triage note Pt presents via EMS for failure to thrive. Asked her sister to call because she was in pain and couldn't walk. Hx dementia. Smells of urine upon arrival. Comes from [facility] 11-30-2024 Physician Emergency department Note EMERGENCY DEPARTMENT ENCOUNTER Pt Name: Yelena Chandra Birthdate 1935 Date of evaluation: 11/30/2024 ED Provider: Jake Ramos, GENEVA - RATE ENGINEER This patient was seen in conjunction with Dr. Skelton CHIEF COMPLAINT Chief Complaint Patient presents with Failure To Thrive HISTORY OF PRESENT ILLNESS (Location/Symptom, Timing/Onset, Context/Setting, Quality, Duration, Modifying Factors, Severity) Note limiting factors. I wore appropriate PPE for the entirety of this encounter. HPI Yelena Chandra is a 89 y.o. who presents to the emergency department with chief complaint of brought in by EMS after the patient's sister called, the patient lives with her sister she has dementia, they state that the house is in rather terrible shape it is a bit of a hoarding situation with barely any paths to walk through throughout the house. The patient told her sister to call EMS and then when they got there she started swearing at them and yelling at them. She has been agitated here she is alert to self and place confused to time she has a history of dementia. Initial call was for just complaints of pain all over. Nursing Notes were reviewed. Limitations to history: None Outside historians: EMS REVIEW OF SYSTEMS Review of Systems Constitutional: Negative for activity change, appetite change, chills and fever. HENT: Negative for congestion, nosebleeds, sinus pain and trouble swallowing. Eyes: Negative for pain and visual disturbance. Respiratory: Negative for cough, chest tightness and shortness of breath. Cardiovascular: Negative for chest pain. Gastrointestinal: Negative for abdominal pain, diarrhea, nausea and vomiting. Genitourinary: Negative for dysuria, hematuria, pelvic pain, vaginal bleeding, vaginal discharge and vaginal pain. Musculoskeletal: Positive for arthralgias and myalgias. Negative for back pain, joint swelling and neck stiffness. Skin: Negative for rash and wound. Neurological: Negative for syncope, weakness, light-headedness and headaches. Hematological: Negative for adenopathy. Psychiatric/Behavioral: Positive for agitation. Negative for confusion. All other systems reviewed and are negative. Pertinent positives and negatives as per HPI. PAST MEDICAL HISTORY Medical History[1] SURGICAL HISTORY Surgical History[2] CURRENT MEDICATIONS Previous Medications AMLODIPINE (NORVASC) 5 MG TABLET Take 1 tablet (5 mg) by mouth daily. ASPIRIN 81 MG EC TABLET Take 81 mg by mouth daily. MELATONIN 3 MG TABLET Take 1 tablet (3 mg) by mouth Nightly as needed for sleep. METOPROLOL TARTRATE (LOPRESSOR) 100 MG TABLET Take 1 tablet by mouth 2 times daily. Pt thought this was stopped and started on another BP med - does not know the name PANTOPRAZOLE (PROTONIX) 40 MG EC TABLET Take 1 tablet (40 mg) by mouth every morning (before breakfast). Do not crush, chew, or split. Do not start before August 07, 2022. SERTRALINE (ZOLOFT) 25 MG TABLET Take 1 tablet (25 mg) by mouth daily for 2 doses. SERTRALINE (ZOLOFT) 50 MG TABLET Take 1 tablet (50 mg) by mouth daily. Do not start before July 25, 2023. THERAPEUTIC MULTIVITAMIN-MINERALS (THERAGRAN-M) TABLET Take 1 tablet by mouth daily. ALLERGIES Patient has no known allergies. FAMILY HISTORY Family History[3] SOCIAL HISTORY Social History[4] SCREENINGS [place] Coma Scale Best Eye Response: Spontaneous Best Verbal Response: Confused Best Motor Response: Follows commands [address] [place] Coma Scale Score: 14 PHYSICAL EXAM ED Triage Vitals Temp Heart Rate Resp BP 11/30/24222611/30/24222611/30/24222611/30/24 222 36.4 C (97.6 F) 106 18 106/70 SpO2 Temp Source Heart Rate Source Patient Position 11/30/24222611/30/24 22211/30/24 2330 11/30/24 2330 97 % Oral Monitor Lying BP Location FiO2 (%) 11/30/24 2330 -- Left arm Physical Exam Vitals and nursing note reviewed. Constitutional: General: She is not in acute distress. Appearance: Normal appearance. She is not ill-appearing or toxic-appearing. HENT: Head: Normocephalic and atraumatic. Right Ear: External ear normal. Left Ear: External ear normal. Mouth/Throat: Mouth: Mucous membranes are moist. Pharynx: Oropharynx is clear. Eyes: Extraocular Movements: Extraocular movements intact. Conjunctiva/sclera: Conjunctivae normal. Pupils: Pupils are equal, round, and reactive to light. Neck: Comments: Large mass left lateral neck under the jawline. Cardiovascular: Rate and Rhythm: Normal rate and regular rhythm. Pulses: Normal pulses. Heart sounds: Normal heart sounds. No murmur heard. Pulmonary: Effort: Pulmonary effort is normal. No respiratory distress. Breath sounds: Normal breath sounds. No stridor. No wheezing or rhonchi. Abdominal: Comments: The abdomen is soft, nondistended and nontender. There is no rebound tenderness or guarding. Bowel sounds are normal. Musculoskeletal: Cervical back: Normal range of motion and neck supple. No rigidity or tenderness. Comments: There is intact range of motion of the shoulders, elbows, wrists bilaterally. Radial pulses are 2+ bilaterally and symmetric. There is full range of motion of all the joints of the upper extremities. There is no tenderness to the cervical, thoracic, lumbar spine. The pelvis is stable hips are nontender. There is no pain with range of motion of the hips, knees, ankles or feet bilaterally. Dorsalis pedis pulses are 2+ bilaterally and symmetric. Skin: General: Skin is warm and dry. Capillary Refill: Capillary refill takes less than 2 seconds. Coloration: Skin is not jaundiced or pale. Findings: No bruising or erythema. Neurological: Mental Status: She is alert. Cranial Nerves: No cranial nerve deficit. Sensory: No sensory deficit. Motor: No weakness. Coordination: Coordination normal. Comments: Alert and oriented place, person, confused to time, speech is clear no strength or sensory deficits in the extremities, NIH 1 for confusion. Per EMS family told them this is her baseline. Psychiatric: Comments: Agitated but redirectable DIAGNOSTIC RESULTS Procedures/EKG: EKG was reviewed by myself. Physician EKG interpretation can be found in [facility] RADIOLOGY (Per Emergency Physician): Interpretation per the Radiologist below, if available at the time of this note: XR chest 1 view Final Result 1. No acute consolidation. 2. Lobular, mass-like opacity projecting over the thoracic inlet suggesting thyromegaly, mildly increased in the interval. Follow-up as indicated. Report Dictated on Electronically Signed By: Zhou Gunn MD Electronically Signed Date/Time: 11/30/2024 11:[address] head wo IV contrast (Results Pending) CTA chest angiogram w and/or wo IV contrast (Results Pending) CT soft tissue neck wo IV contrast (Results Pending) ED BEDSIDE ULTRASOUND: Performed by ED Physician - none LABS: Labs Reviewed COMPREHENSIVE METABOLIC PANEL - Abnormal Result Value SODIUM 140 POTASSIUM 3.5 CHLORIDE 101 CARBON DIOXIDE 24 ANION GAP 15 (*) UREA NITROGEN 25 (*) CREATININE 1.26 (*) GLUCOSE 120 (*) CALCIUM 9.7 AST (SGOT) 22 ALT 9 ALKALINE PHOSPHATASE 103 ALBUMIN 2.9 (*) BILIRUBIN, TOTAL 1.3 (*) TOTAL PROTEIN 7.6 eGFR 41.4 (*) HIGH SENSITIVITY TROPONIN, SERIAL BASELINE - Abnormal Troponin HS Serial Baseline 218 (*) MAGNESIUM - Abnormal MAGNESIUM 1.5 (*) Narrative: Higher values can be expected in females during menses. CBC (HEMOGRAM) - Abnormal Auto WBC 12.6 (*) RBC 5.36 (*) Hemoglobin 14.5 Hematocrit 44.1 MCV 82.3 MCH 27.1 MCHC 32.9 RDW 13.9 Platelets 318 MPV 10.4 CK - Normal CK 49 COMPLETE URINALYSIS WITH REFLEX TO CULTURE HIGH SENSITIVITY TROPONIN, SERIAL, SECOND TEST All other labs were within normal range or not returned as of this dictation. EMERGENCY DEPARTMENT COURSE and DIFFERENTIAL DIAGNOSIS/MDM: Vitals: Vitals: 11/30/24 2227 11/30/24 2330 BP: 106/70 (!) 146/76 BP Location: Left arm Patient Position: Lying Pulse: 106 103 Resp: 18 22 Temp: 36.4 C (97.6 F) TempSrc: Oral SpO2: 97% 99% Weight: 73.4 kg (161 lb 14.4 oz) Height: 1.626 m (5' 4") ED Course as of 12/01/24151Dec 01, 2024 0046 Troponin HS Serial Baseline(!!): 218 [MS] 0150 XR chest 1 view 1. No acute consolidation. 2. Lobular, mass-like opacity projecting over the thoracic inlet suggesting thyromegaly, mildly increased in the interval. Follow-up as indicated. [MS] 0151 CT soft tissue neck wo IV contrast IMPRESSION: 1. 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 Further evaluation and management is warranted. 2. Enlarged heterogeneous thyroid gland observed with multiple hypodensities and foci of calcification. Largest lesion measures up to 3.9 cm, for which thyroid ultrasound is recommended for further investigation as neoplasm is not excluded. 3. Other chronic findings as discussed. [MS] 0151 CT head wo IV contrast IMPRESSION: No acute intracranial abnormality. Chronic microvascular change. [MS] 0151 CTA chest angiogram w and/or wo IV contrast IMPRESSION: 1. No evidence of acute pulmonary embolism. 2. 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 Neoplastic process is not excluded in this context. 3. Partial visualization of left parotid gland heterogeneous mass, better characterized on dedicated neck CT. Again, neoplasm is not entirely excluded and further evaluation and management is warranted. 4. Other chronic findings as discussed. [MS] 0151 2h Troponin HS (Serial 2nd Troponin)(!): 196 [MS] ED Course User Index [MS] Ghazal Perry FlexdorisDO christo Diagnoses as of 12/01/24 0152 Dementia, unspecified dementia severity, unspecified dementia type, unspecified whether behavioral, psychotic, or mood disturbance or anxiety (HCC) Agitation Acute kidney injury superimposed on chronic kidney disease (HCC) (HCC) Elevated troponin Neck mass Abnormal chest x-ray The patient presented with chief complaint of with chief complaint of brought in by EMS after the patient's sister called, the patient lives with her sister she has dementia, they state that the house is in rather terrible shape it is a bit of a hoarding situation with barely any paths to walk through throughout the house. The patient told her sister to call EMS and then when they got there she started swearing at them and yelling at them. She has been agitated here she is alert to self and place confused to time she has a history of dementia. Initial call was for just complaints of pain all over.. The differential diagnosis associated with this patient's presentation includes neck cancer, rhabdomyolysis, kidney injury, electrolyte disturbance, urinary tract infection, brain mass, pneumonia. Our workup consisted of ordering/reviewing: CBC, magnesium, CK, CMP, troponin, urinalysis, EKG, CTA chest, CT head, CT soft tissue neck. Diagnostic tests considered but not performed: None To aid in management, I performed an independent interpretation of EKG(s) EKG per my interpretation showed sinus rhythm with PACs at a rate of 105 Xray(s) chest x-ray per my interpretation shows no definitive infiltrate but an abnormally widened mediastinum with concern for a mediastinal mass. I also reviewed external records from none. I discussed their care with Admitting team Dr. Bernard. Consideration for escalation of care with: Patient will be admitted for likely placement will treat UTI as present obtain scans likely admission. The patient will be final disposition by Dr. Skelton. Patient is in agreement with this plan. Medications magnesium sulfate IVPB premix 2,000 mg (2,000 mg IntraVENous New Bag 11/30/24 7033) sodium chloride 0.9 % bolus 500 mL (has no administration in time range) aspirin chewable tablet 324 mg (has no administration in time range) REVAL: CRITICAL CARE TIME None CONSULTS: None PROCEDURES: Unless otherwise noted below, none Procedures Patients symptoms are consistent with sepsis, severe sepsis, or septic shock (If yes use ".sepsiscoremeasure"): no FINAL IMPRESSION 1. Dementia, unspecified dementia severity, unspecified dementia type, unspecified whether behavioral, psychotic, or mood disturbance or anxiety (HCC) 2. Agitation 3. Acute kidney injury superimposed on chronic kidney disease (HCC) (HCC) 4. Elevated troponin 5. Neck mass 6. Abnormal chest x-ray DISPOSITION PATIENT REFERRED TO: No follow-up provider specified. DISCHARGE MEDICATIONS: New Prescriptions No medications on file (Comment: Please note this report has been produced using speech recognition software and may contain errors related to that system including errors in grammar, punctuation, and spelling, as well as words and phrases that may be inappropriate. If there are any questions or concerns please feel free to contact the dictating provider for clarification.) GENEVA Roque CNP (electronically signed) Emergency Medicine Provider GENEVA Roque CNP 12/01/24 0003 [1] Past Medical History: Diagnosis Date Anxiety Arthritis Hypertension [2] Past Surgical History: Procedure Laterality Date DILATION AND CURETTAGE OF UTERUS HYSTERECTOMY TONSILLECTOMY AND ADENOIDECTOMY (HISTORICAL) [3] No family history on file. [4] Social History Socioeconomic History Marital status: Tobacco Use Smoking status: Former Smokeless tobacco: Never Substance and Sexual Activity Alcohol use: No Drug use: No Social Drivers of Health Transportation Needs: No Transportation Needs (07/11/2023) PRAPARE - Transportation Lack of Transportation (Medical): No Lack of Transportation (Non-Medical): No Intimate Partner Violence: Not At Risk (07/11/2023) Humiliation, Afraid, Rape, and Kick questionnaire Fear of Current or Ex-Partner: No Emotionally Abused: No Physically Abused: No Sexually Abused: No Housing Stability: Low Risk (07/11/2023) Housing Stability Vital Sign Unable to Pay for Housing in the Last Year: No Number of Places Lived in the Last Year: 1 Unstable Housing in the Last Year: No Cosigned by Ghazal Skelton DO at 12/01/2024 2:34 AM EDT [facility] 07-22-2023 History of Present illness Narrative Images from the original note were not included. OCCUPATIONAL THERAPY [facility] Treatment Note Name/MRN: Yelena Chandra ([id number]) Date of : 1935 Age: 88 y.o. Room/Bed: [facility] A Visit #: 6 out of 7 Discharge Recommendation: Nursing Home Facility Equipment Needed: No (TBD at next level of care) Assessment Pt performed bed mobility at SBA for supine to EOB and Ezekiel for return to supine. STS, functional mobility, and toilet tranfers at [facility] with cuing for sequencing and safety through out. LB dressing at CGA with extended time. Toileting tasks Ezekiel for thoroughness and alignment for clothing management. Pt is limited by fatigue, weakness and decreased endurance and safety. OT recs SNF at discharge. Subjective Agreaable for OT Per RNLIZZIE for tx Pain: Pt denies any current pain. Medical Precautions: Droplet Proper PPE donned/doffed in accordance with facility standards. Fall Risk: Velarde Fall Risk Score: 60 (High Risk) Family/Caregiver Present: none Objective ADLs Grooming: Contact Guard UE Dressing: SBA LE Dressing: Contact Guard Toileting: Min Assist Pt performed toileting tasks at Ezekiel for clothing management with pt standing unsupported to hike pants over hips. Backside care with Ezekiel for thoroughness. Lb dressing seated at CGA with extended time to thread brief over BLE. Standing at sink unsupported at CGA for grooming tasks with cues for sequencing throughout. Bed Mobility Supine to sit: SBA Sit to supine: Min Assist Pt performed supine to EOB at SBA for completion with cues for placement of hands and feet for increased independence. Return to supine at Ezekiel for BLE management. Transfers/Mobility Sit to stand: Contact Guard Stand to sit: Contact Guard Toilet: Contact Guard Standing balance: Contact Guard Functional mobility: Contact Guard Pt performed STS with FWW at [facility] with cuing for hand placement with good follow through. Functional mobility to bathroom with use of FWW at [facility] with cuing for positioning inside FWW for increased safety and balance. Toilet transfer at [facility] with cuing for sequencing. Device(s) used: front wheeled walker, hospital bed, grab bars, and oxygen Plan Continue acute OT per plan of care. Safety/Education Safety Safety Devices in place: All fall risk precautions in place, call light within reach, left in bed, bed alarm in place, patient at risk for falls, and nurse notified Restraints: No Education Education Given To: patient Education Provided: OT Role, Plan of Care, Transfer Training, and Fall Prevention Education Education Method: Verbal and Teach Back Barriers to Learning: Cognition Education Outcome: Verbalized Understanding, Demonstrated Understanding, and Continued Education Needed AM-PAC AM-PAC Inpatient Daily Activity Raw Score: 19 ADL Inpatient CMS G-Code Modifier: CK Goals Patient Stated Goal: Encounter Problems Encounter Problems (Resolved) Dressings Lower Extremities Patient will dress lower body with SUP (Adequate for Discharge) Start: 07/12/23 Expected End: 07/19/23 Resolved: 07/22/23 Mobility Patient will demonstrate functional ambulation with SUP (Adequate for Discharge) Start: 07/12/23 Expected End: 07/19/23 Resolved: 07/22/23 Toileting Patient will complete toileting tasks at standard toilet with supervision. (Adequate for Discharge) Start: 07/12/23 Expected End: 07/19/23 Resolved: 07/22/23 Transfers Patient will complete functional transfer with rolling walker with supervision in order to prepare for ambulation. (Adequate for Discharge) Start: 07/12/23 Expected End: 07/19/23 Resolved: 07/22/23 Therapy Time Individual Co-treatment Time In 0917 Time Out 0942 Minutes 25 Timed Code Treatment Minutes: 25 Minutes (1 ADL, 1 TA) CATHLEEN Ramos Images from the original note were not included. Speech-Language Pathology SPEECH LANGUAGE PATHOLOGY [facility] Dysphagia Treatment Note Patient Name: Yelena Chandra Evaluation Date: 07/22/2023 Date of : 1935 Admission Date: 07/11/2023 4:59 PM Age: 88 y.o. Room/Bed: [facility] A Subjective Patient alert and cooperative. Seen upright in bed. Answers all basic questions with slightly wet, strong vocal quality. Follows all basic commands. No visitors at bedside. Spoke with RN Desire who cleared pt for treatment. Current Diet: Dietary Orders (From admission, onward) Start Ordered 07/19/23 1329 Adult diet Dysphagia - Soft and Bite Sized Diet effective now Question: Diet type Answer: Dysphagia - Soft and Bite Sized 07/19/23 1328 07/14/23 1054 Supplement:Lunch, Dinner; Chocolate Ensure Plus Until discontinued Question Answer Comment Frequency Lunch Frequency Dinner Select supplement: Chocolate Ensure Plus 07/14/23 1053 Aspiration Precautions: - Upright positioning for all PO intake - Slow rate of intake - Small bites/sips - Alternate solid and liquids Oxygen: Oxygen Therapy: Supplemental oxygen O2 Delivery Method: Nasal cannula O2 Flow Rate (L/min): 3 L/min Pain: RN managing pain. PPE Worn: surgical mask, n95, face shield, gloves Objective & Assessment Dysphagia Treatment # of Activities: 2 Dysphagia Activity 1: Assessment of diet tolerance Dysphagia Activity 2: Education of swallow strategies Pt sat self upright in bed and accepted trials of soft and bite sized solids. Pt presented with adequate bolus control/manipulation, timely swallow onset, and adequate hyloryngeal excursion on palpation. Pt presented with trace oral residue post swallow, however, this was cleared with cued use of liquid wash. Pt also presented with a slightly wet vocal quality post swallow, however, wet vocal quality is baseline for pt. Cued throat clears appeared to decrease wet vocal quality, however, did not fully subside. Discussion regarding pt's recent choking episode. Pt reported that she was eating eggs and "took too big of a bite" and was unable to swallow all of it. Education provided regarding use of compensatory strategies for a safe and efficient swallow (I.e., small sized bites and sips, alternating solids and liquids, and upright positioning for all PO intake). Pt receptive to education and repeated strategies aloud to GAS COMPRESSOR TURBINE OPERATOR. Plan & Recommendations Plan: Recommend Soft and bite-sized solids and Thin liquids and meds as tolerated and the following precautions: - Upright positioning for all PO intake - Slow rate of intake - Small bites/sips - Alternate solid and liquids Patient no longer appropriate for acute care GAS COMPRESSOR TURBINE OPERATOR. Speech therapy to sign off at this time. D/C Recommendations: ongoing speech therapy at next level of care Education Education Given: safety, swallowing strategies Given To: patient Response: verbalizes understanding Goals Patient Stated Goal: did not state Encounter Problems Encounter Problems (Active) Swallowing Patient will tolerate the least restrictive diet consistency to allow for safe consumption of daily meals (Adequate for Discharge) Start: 07/12/23 Expected End: 07/19/23 Patient will tolerate recommended food and liquid consistencies without clinical signs and symptoms of aspirations (Adequate for Discharge) Start: 07/20/23 Therapy Time GAS COMPRESSOR TURBINE OPERATOR Individual Minutes Time In: 941 Time Out: 951 Minutes: 10 Mylene Kennedy CCC-GAS COMPRESSOR TURBINE OPERATOR Images from the original note were not included. OCCUPATIONAL THERAPY [facility] Treatment Note Name/MRN: Yelena Chandra ([id number]) Date of : 1935 Age: 88 y.o. Room/Bed: [facility] A Visit #: 5 out of 7 visits Discharge Recommendation: Nursing Home Facility Equipment Needed: No (TBD at next level of care) Assessment Pt in the bed sleeping and woke easily. Agreeable to therapy. Pt is SBA for supine to sit, min assist for sit > stand and CGA for BSC transfer at the [facility]. CGA for functional mobility with the FWW to the sink to wash her hands. IV in tow at 3 liters. Pt required min assist for sit > supine. Pt is limited by fatigue, weakness and decreased endurance. OT recs SNF at discharge. Subjective Pt pleasant and cooperative. Pain: Pt denies any current pain. Medical Precautions: Droplet Proper PPE donned/doffed in accordance with facility standards. Fall Risk: Velarde Fall Risk Score: 60 (High Risk) Precautions/Restrictions: N/A Family/Caregiver Present: none Objective ADLs Feeding: Assist to open containers only Grooming: Contact Guard, Min Assist, Pt able to wash her hands at the sink with CGA for balance and safety. Min assist to retrieve soap and paper towels. Cues needed to turn off the water when done. LE Dressing: Max Assist, Max assist to start brief over feet and min assist to pull up completely over hips. Toileting: Mod Assist Pt used the BSC and had been incontinent of urine in the brief. Max assist for astrid-care and pt able to pull up clean brief (once CALIX started) with min assist to pull completely over hips. Pt is limited by fatigue and decreased cognition. Bed Mobility Supine to sit: SBA Sit to supine: Min Assist Transfers/Mobility Sit to stand: Min Assist Stand to sit: Contact Guard Bedside commode: Contact Guard Sitting balance: Supervision Standing balance: Contact Guard Functional mobility: Contact Guard Pt walked from bed > BSC (stand /step) > sink> bed with CGA with the FWW. No LOB but is limited by fatigue. No c/o dizziness. Device(s) used: front wheeled walker, bedside commode, hospital bed, and oxygen Cognition Exceptions - Following commands: follows one step commands with increased time and follows one step commands with repetition - Attention span: difficulty attending to directions and difficulty dividing attention - Memory: decreased short term memory - Safety judgement: decreased awareness of need for assistance and decreased awareness of need for safety - Problem solving: assistance required to generate solutions, assistance required to implement solutions, assistance required to identify errors made, assistance required to correct errors made, and decreased awareness of errors - Insights: not aware of deficits - Initiation: requires cues for some - Sequencing: requires cues for some Plan Continue acute OT per plan of care. Safety/Education Safety Safety Devices in place: All fall risk precautions in place, call light within reach, left in bed, bed alarm in place, gait belt, and nurse notified Restraints: No Education Education Given To: patient Education Provided: OT Role, Plan of Care, ADL Adaptive Strategies, Transfer Training, Equipment, Fall Prevention Education, and Benefits of Increasing Activity Education Method: Verbal and Demonstration Barriers to Learning: Cognition Education Outcome: Verbalized Understanding, Demonstrated Understanding, and Continued Education Needed AM-PAC AM-PAC Inpatient Daily Activity Raw Score: 19 ADL Inpatient CMS G-Code Modifier: CK Goals Patient Stated Goal: None stated Encounter Problems Encounter Problems (Active) Dressings Lower Extremities Patient will dress lower body with SUP (Progressing) Start: 07/12/23 Expected End: 07/19/23 Mobility Patient will demonstrate functional ambulation with SUP (Progressing) Start: 07/12/23 Expected End: 07/19/23 Toileting Patient will complete toileting tasks at standard toilet with supervision. (Slowly Progressing) Start: 07/12/23 Expected End: 07/19/23 Transfers Patient will complete functional transfer with rolling walker with supervision in order to prepare for ambulation. (Progressing) Start: 07/12/23 Expected End: 07/19/23 Therapy Time Individual Co-treatment Time In 1402 Time Out 1430 Minutes 28 Timed Code Treatment Minutes: 28 Minutes (adl and ther act) [facility] [place] Speech-Language Pathology Attempted to see pt. Pt with care needs. Assisted w/ nursing to bedside commode. Unable to address ST goals at this time. ST will continue to follow. Nicki Sebastian MA, CCC/GAS COMPRESSOR TURBINE OPERATOR Speech Language Pathologist Images from the original note were not included. Hospitalist Progress Note 07/21/2023 Subjective: Admit Date: 07/11/2023 PCP: Yenifer Schulz DO Room#: B4-264/B4-527 A Brief Hospital course: Yelena is a 88 y.o. female with past medical history below who presents with chief complaint listed above. She states that she has been feeling weaker and more "unwell" over the past few weeks, has not had an appetite. Denies having any flu like symptoms - no cough, congestion, CP. Does have some SOB - which she states is chronic for her. Currently, lives at home - has had several falls due to weakness - and was not able to walk from the bed to the couch today. Describes general aches and pains. Patient is a vague historian - difficulty to get a history from. Interval History: No overnight issues. Still with non-productive cough. Denies any pain, discomfort. Eating and drinking ok. Case and plan discussed with patient and bedside nurse. All questions answered. Adult diet Dysphagia - Soft and Bite Sized 24HR INTAKE/OUTPUT: No intake or output data in the 24 hours ending 07/21/23 0821 Past Medical History: Past Medical History: Diagnosis Date Anxiety Arthritis Hypertension LABS: CBC: Recent Labs 07/19/23 0239 WBC 8.2 RBC 3.58* HGB 9.8* HCT 29.1* MCV 81.2 RDW 15.1* PLT 516* BMP: Recent Labs 07/19/23 0239 07/21/23 0504 NA 135 132* K 4.3 3.9 CL 106 99 CO2 26 30 BUN 37* 32* CREATININE 0.95 0.96 GLUCOSE 138* 121* CALCIUM 8.5 8.3* ANIONGAP 3 3 LIVER PROFILE:No results for input(s): "AST", "ALT", "BILITOT", "ALKPHOS", "PROT" in the last 72 hours. No lab exists for component: LABALBU PT/INR: No results for input(s): "PROTIME", "INR" in the last 72 hours. CARDIAC ENZYMES: No results for input(s): "TROPONINI" in the last 72 hours. Procalcitonin: No results found for: "PROCAL" COVID-19 PCR: No results for input(s): "COVID19" in the last 72 hours. Objective: Vitals: BP 128/72 Pulse 93 Temp 37.1 C (98.7 F) (Temporal) Resp 18 Ht 5' 4" (1.626 m) Wt 151 lb (68.5 kg) SpO2 97% BMI 25.92 kg/m Pulse Ox: SpO2 Av.8 % Min: 95 % Max: 97 % Supplemental O2: O2 Flow Rate (L/min): 3 L/min Physical Exam Constitutional: Appearance: She is obese. Cardiovascular: Rate and Rhythm: Normal rate and regular rhythm. Heart sounds: Normal heart sounds. Pulmonary: Breath sounds: Normal breath sounds. Abdominal: General: Bowel sounds are normal. Palpations: Abdomen is soft. Musculoskeletal: General: Normal range of motion. Skin: General: Skin is warm and dry. Neurological: General: No focal deficit present. Mental Status: She is alert. Mental status is at baseline. Psychiatric: Mood and Affect: Mood normal. Behavior: Behavior normal. Medications: amLODIPine, 10 mg, Oral, Daily aspirin, 81 mg, Oral, Daily enoxaparin, 40 mg, SubCUTAneous, Daily hydrALAZINE, 50 mg, Oral, TID ipratropium-albuterol, 3 mL, Nebulization, TID metoprolol tartrate, 100 mg, Oral, BID oseltamivir, 30 mg, Oral, BID pantoprazole, 40 mg, Oral, qAM AC polyethylene glycol (PEG) 3350, 17 g, Oral, Daily potassium chloride CR, 20 mEq, Oral, Daily sertraline, 25 mg, Oral, Daily [START ON 07/25/2023] sertraline, 50 mg, Oral, Daily Assessment Data: (CAT1) Reviewed 1 labs/studies previously ordered by me not previously counted (each=1, panels count as 1). (LOW: 2x CAT1 or independent historian MOD: 3x CAT1 or 1x CAT3 EXTENSIVE: 3x CAT1 and 1x CAT3) Acute, acute on chronic, unstable/uncontrolled chronic problems/diagnoses: Adult failure to thrive- palliative following, PT/OT rec SNF at discharge , CM involved Depression- patient on Paxil, high risk medication for her age group, Paxil titrated and DC'd and changed to Zoloft New oxygen requirement- not on oxygen at home, currently on 3L/nc SpO2s mid to high 90s. CXR 07/16:concern for possible infiltrates, patient is afebrile. Urine antigens negative. Unable to obtain sputum for pneumonia PCR. Wean oxygen Influenza A: symptoms improving, supportive care, continue Tamiflu. Isolation can be Dc'd 07/22 per Inf Control Mild hypokalemia: continue supplemental potassium. Dysphagia: appreciate Speech recs RECOMMENDATION: Recommend Soft and bite-sized solids and Thin liquids and meds crushed in puree and the following precautions: - Upright positioning for all PO intake - Slow rate of intake - Small bites/sips - Alternate solid and liquids Pt would benefit from skilled acute GAS COMPRESSOR TURBINE OPERATOR services to address assess diet tolerance. Frequency: 3 days/wk for 1 week Barriers: Limited insight into deficits, esophageal issues Prognosis: good Stable chronic problems affecting care, new non-acute diagnoses: HTN- continue amlodipine and hydralazine GERD- PPI Plan As a result of the above findings & factors, the following mgmt was pursued: - - am labs, replace lytes prn - PT/OT/CM/SW - delirium precautions: increase activity and limit nighttime disturbances - DVT prophylaxis: enoxaparin and encourage ambulation Complexity: Multiple stable chronic illnesses (MOD). Risk: Low risk diagnostic testing or treatment (LOW). Advance Directive: DNR-CCA Anticipated Discharge - Date - 07/22/23 - Location - Skilled Facility - Pending the following - DC isolation Total time spent (which include face to face and non face to face encounters) : minutes Toxic drug monitoring/narrow therapeutic index drug monitoring : # Drug name : # Route administered : # Method of monitoring : Extended Emergency Contact Information Primary Emergency Contact: Julianne Bravo Mobile Relation: Sister Preferred language: [place] [employer] Assistant needed? No GENEVA MCCORD CNP Division of Hospitalist Medicine [facility] Comment: Please note this report has been produced using speech recognition software and may contain errors related to that system including errors in grammar, punctuation, and spelling, as well as words and phrases that may be inappropriate. If there is any questions or concerns please feel free to contact the dictating provider for clarification Images from the original note were not included. Speech-Language Pathology SPEECH LANGUAGE PATHOLOGY [facility] Bedside Swallow Evaluation Patient Name: Yelena Chandra Evaluation Date: 07/20/2023 Date of : 1935 Admission Date: 07/11/2023 4:59 PM Age: 88 y.o. Room/Bed: [facility] A IMPRESSION: S/s oropharyngeal dysphagia. No overt clinical s/s pulmonary compromise with PO. Risk factors for aspiration include poor dentition, esophageal issues - small esophageal web. RECOMMENDATION: Recommend Soft and bite-sized solids and Thin liquids and meds crushed in puree and the following precautions: - Upright positioning for all PO intake - Slow rate of intake - Small bites/sips - Alternate solid and liquids Pt would benefit from skilled acute GAS COMPRESSOR TURBINE OPERATOR services to address assess diet tolerance. Frequency: 3 days/wk for 1 week Barriers: Limited insight into deficits, esophageal issues Prognosis: good D/C Recommendations: to be determined Subjective Patient alert and cooperative. Seen upright in bed. Answers some basic questions with clear vocal quality. Follows some basic commands. No visitors at bedside . Spoke with MITA Morris who cleared pt to be evaluated. Dysphagia History: Retrospective chart review revealed a history of GAS COMPRESSOR TURBINE OPERATOR services as follows: BSE this admission (07/12/23) RECOMMENDATION: Recommend Regular solids and Thin liquids and meds as tolerated and the following precautions: - Upright positioning for all PO intake - Small bites/sips - Alternate solid and liquids [place] [facility] [place]GAS COMPRESSOR TURBINE OPERATOR report Impression Pt demonstrated mild decreased oral control with lingual pumping. +prespill to vallecula prior to swallow (WFL for age) however over epiglottis into top of laryngeal vestibule at onset of swallow resulting in transient penetration. No true vocal cord contact observed despite pt was coughing during study. Recommend Easy to chew vs. Continue Soft and bite sized with thin liquids. Single bites and drinks, slow rate of intake, smaller more frequent meal to accommodate esophageal emptying. Pt needs education and follow up with deficits, as she is poor historian and decreased memory. [facility] [place] radi[place] CLINICAL INDICATION: Dysphagia. FINDINGS: The oral phase is normal. Trace penetration was evident during the examination (particularly with thin liquid). Though predominantly silent, at one point this did induce a cough. 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 This does not result in any hold-up or stenosis. IMPRESSION: 1. Trace penetration. 2. No mely aspiration. Esophagram (08/05/22) ESOPHAGRAM: INDICATION: Dysphagia. 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 The mid/distal esophagus is somewhat patulous. No gastroesophageal mass or obstruction is identified. IMPRESSION: 1. Presbyesophagus. 2. Very slow transit of ingested material with hold-up in the mid/distal esophagus. 3. No gastroesophageal mass lesion or obstruction identified. Baseline Diet: regular / thin Current Diet: regular / thin Dietary Orders (From admission, onward) Start Ordered 07/19/23 1329 Adult diet Dysphagia - Soft and Bite Sized Diet effective now Question: Diet type Answer: Dysphagia - Soft and Bite Sized 07/19/23 1328 07/14/23 1054 Supplement:Lunch, Dinner; Chocolate Ensure Plus Until discontinued Question Answer Comment Frequency Lunch Frequency Dinner Select supplement: Chocolate Ensure Plus 07/14/23 1053 Tube Feeding: no Tracheostomy: no Recent Chest Xray/CT of Chest: XR chest 2 views 07/16/2023 Impression Small effusions with associated atelectasis. Pathcy opacity in the right lower lobe may reflect a superimposed infectious/inflammatory process. Prominence of the central vasculature without overt pulmonary edema. Prominence of the superior mediastinum,stable, likely due to enlarged thyroid gland. Report Dictated on Electronically Signed By: Chester Hill MD Electronically Signed Date/Time: 07/16/2023 3:35 PM EST Oxygen: Oxygen Therapy: Supplemental oxygen O2 Delivery Method: Nasal cannula O2 Flow Rate (L/min): 3 L/min Past Medical History: Past Medical History: Diagnosis Date Anxiety Arthritis Hypertension Past Surgical History: Past Surgical History: Procedure Laterality Date DILATION AND CURETTAGE OF UTERUS HYSTERECTOMY TONSILLECTOMY AND ADENOIDECTOMY (HISTORICAL) Admission Diagnosis: Patient Active Problem List Diagnosis Date Noted Moderate malnutrition (CMS/HCC) (HCC) 07/14/2023 Decreased activities of daily living (ADL) 07/11/2023 Dyspnea 07/31/2022 Arthritis of knee 06/17/2021 History of Present Illness: Subjective: Admit Date: 07/11/2023 PCP: Yenifer Schulz DO Room#: [id number] A Brief Hospital course: Yelena is a 88 y.o. female with past medical history below who presents with chief complaint listed above. She states that she has been feeling weaker and more "unwell" over the past few weeks, has not had an appetite. Denies having any flu like symptoms - no cough, congestion, CP. Does have some SOB - which she states is chronic for her. Currently, lives at home - has had several falls due to weakness - and was not able to walk from the bed to the couch today. Describes general aches and pains. Patient is a vague historian - difficulty to get a history from. Interval History: Patient had episode during breakfast of choking. Will order speech study. No overnight issues. Patient denies any pain or discomfort resting quietly in bed. Case and plan discussed with patient and bedside nurse. All questions answered. Patient Complaint: difficulty swallowing pills Pain: RN managing pain. PPE Worn: n95, gown, gloves Objective Bedside swallow eval completed. Oral Motor Mechanism Adequate structure, strength, and ROM in lingual, labial, and buccal musculature. Limited natural lower dentition. Pt declines to put in upper denture plate Oral Hygiene: moist Swallowing Examination PO Trials - thin liquid, (straw, fed by clinician) - puree, (teaspoon, self administered) - soft and bite sized solids Oral Phase Pt with adequate oral receipt of PO trials. No anterior spillage. Mastication with soft solids appeared disorganized and prolonged. Oral transit time appears prolonged. Min oral residue with soft solids. Pharyngeal Phase Hyolaryngeal excursion clinically appears adequate and timely per palpation. 1-2 swallows palpated per bolus, likely indicative of adequate pharyngeal clearance. No overt clinical s/s airway penetration as evidenced by no cough, no throat clear, and no change in vocal quality. 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 Hospitalist Progress Note 07/20/2023 Subjective: Admit Date: 07/11/2023 PCP: Yenifer Schulz DO Room#: [id number] A Brief Hospital course: Yelena is a 88 y.o. female with past medical history below who presents with chief complaint listed above. She states that she has been feeling weaker and more "unwell" over the past few weeks, has not had an appetite. Denies having any flu like symptoms - no cough, congestion, CP. Does have some SOB - which she states is chronic for her. Currently, lives at home - has had several falls due to weakness - and was not able to walk from the bed to the couch today. Describes general aches and pains. Patient is a vague historian - difficulty to get a history from. Interval History: No overnight issues. Patient seen at bedside in no acute distress. Patient is pleasantly confused, cooperative.patient denies any subjective fever or chills. No further reported episodes of choking. Waiting for speech to see the patient. She denies any productive cough. Case and plan discussed with patient and bedside nurse. All questions answered. Adult diet Dysphagia - Soft and Bite Sized 24HR INTAKE/OUTPUT: No intake or output data in the 24 hours ending 07/20/23 0947 Past Medical History: Past Medical History: Diagnosis Date Anxiety Arthritis Hypertension LABS: CBC: Recent Labs 07/19/23 0239 WBC 8.2 RBC 3.58* HGB 9.8* HCT 29.1* MCV 81.2 RDW 15.1* PLT 516* BMP: Recent Labs 07/19/23 0239 NA 135 K 4.3 CL 106 CO2 26 BUN 37* CREATININE 0.95 GLUCOSE 138* CALCIUM 8.5 ANIONGAP 3 LIVER PROFILE:No results for input(s): "AST", "ALT", "BILITOT", "ALKPHOS", "PROT" in the last 72 hours. No lab exists for component: LABALBU PT/INR: No results for input(s): "PROTIME", "INR" in the last 72 hours. CARDIAC ENZYMES: No results for input(s): "TROPONINI" in the last 72 hours. Procalcitonin: No results found for: "PROCAL" COVID-19 PCR: No results for input(s): "COVID19" in the last 72 hours. Objective: Vitals: BP 126/71 Pulse 90 Temp 37.4 C (99.3 F) (Temporal) Resp 16 Ht 5' 4" (1.626 m) Wt 151 lb (68.5 kg) SpO2 95% BMI 25.92 kg/m Pulse Ox: SpO2 Av.3 % Min: 95 % Max: 99 % Supplemental O2: O2 Flow Rate (L/min): 3 L/min Physical Exam Constitutional: General: She is not in acute distress. Appearance: She is obese. Cardiovascular: Rate and Rhythm: Normal rate and regular rhythm. Heart sounds: Normal heart sounds. Pulmonary: Breath sounds: Normal breath sounds. Abdominal: General: Bowel sounds are normal. Palpations: Abdomen is soft. Musculoskeletal: General: Normal range of motion. Skin: General: Skin is warm and dry. Neurological: General: No focal deficit present. Mental Status: She is alert. Mental status is at baseline. She is disoriented. Psychiatric: Mood and Affect: Mood normal. Behavior: Behavior normal. Medications: amLODIPine, 10 mg, Oral, Daily aspirin, 81 mg, Oral, Daily enoxaparin, 40 mg, SubCUTAneous, Daily hydrALAZINE, 50 mg, Oral, TID ipratropium-albuterol, 3 mL, Nebulization, TID metoprolol tartrate, 100 mg, Oral, BID oseltamivir, 30 mg, Oral, BID pantoprazole, 40 mg, Oral, qAM AC polyethylene glycol (PEG) 3350, 17 g, Oral, Daily potassium chloride CR, 20 mEq, Oral, Daily sertraline, 25 mg, Oral, Daily [START ON 07/25/2023] sertraline, 50 mg, Oral, Daily Assessment Data: (CAT1) Reviewed 2 labs/studies previously ordered by me not previously counted (each=1, panels count as 1). (LOW: 2x CAT1 or independent historian MOD: 3x CAT1 or 1x CAT3 EXTENSIVE: 3x CAT1 and 1x CAT3) Acute, acute on chronic, unstable/uncontrolled chronic problems/diagnoses: Adult failure to thrive- palliative following, PT/OT rec SNF at discharge , CM involved Depression- patient on Paxil, high risk medication for her age group, Paxil titrated and DC'd and changed to Zoloft New oxygen requirement- not on oxygen at home, currently on 3L/nc SpO2s mid to high 90s. CXR 07/16:concern for possible infiltrates, patient is afebrile. Urine antigens negative. Unable to obtain sputum for pneumonia PCR Influenza A: symptoms improving, supportive care, continue Tamiflu. Isolation can be Dc'd 07/22 per Inf Control Mild hypokalemia: continue supplemental potassium. Dysphagia: Speech consult, placed patient on soft and bite-size diet Stable chronic problems affecting care, new non-acute diagnoses: HTN- continue amlodipine and hydralazine GERD- PPI Plan As a result of the above findings & factors, the following mgmt was pursued: - BMP in am - am labs, replace lytes prn - PT/OT/CM/SW - delirium precautions: increase activity and limit nighttime disturbances - DVT prophylaxis: enoxaparin and encourage ambulation Complexity: Multiple stable chronic illnesses (MOD). Risk: Low risk diagnostic testing or treatment (LOW). Advance Directive: DNR-CCA Anticipated Discharge - Date - 07/22/23 - Location - Skilled Facility - Pending the following - Isolation DC'd Total time spent (which include face to face and non face to face encounters) : minutes Toxic drug monitoring/narrow therapeutic index drug monitoring : # Drug name : # Route administered : # Method of monitoring : Extended Emergency Contact Information Primary Emergency Contact: Julianne Bravo Mobile Relation: Sister Preferred language: [place] [employer] Assistant needed? No GENEVA MCCORD CNP Division of Hospitalist Medicine [facility] Comment: Please note this report has been produced using speech recognition software and may contain errors related to that system including errors in grammar, punctuation, and spelling, as well as words and phrases that may be inappropriate. If there is any questions or concerns please feel free to contact the dictating provider for clarification Images from the original note were not included. OCCUPATIONAL THERAPY [facility] Treatment Note Name/MRN: Yelena Chandra ([id number]) Date of : 1935 Age: 88 y.o. Room/Bed: [facility] A Visit #: 4 out of 7 Discharge Recommendation: Nursing Home Facility Equipment Needed: No (TBD at next level of care) Prior Level of Function ADL Assistance: Independent Ambulation Assistance: Independent Transfer Assistance: Independent Assessment Pt in bed upon arrival, bed soaked in void and pt unaware. Pt pleasant and agreeable to OT tx. Pt was min assist for UB dressing, min assist for UB bathing, min assist for LB bathing, CGA for LB dressing. Pt completed BSC transfer and light mobility with CGA for steadiness and v/c's for proper fww mgmnt. Pt is limited by increased confusion, generalized weakness, decreased activity tolerance, mild instability and decreased strength/endurance. Pt would continue to benefit from skilled OT therapy to adapt to deficits and increase Occupational Performance. OT is rec SNF upon planned discharge. Subjective Ok to see per RN Pain: Pt denies any current pain. Medical Precautions: Droplet Proper PPE donned/doffed in accordance with facility standards. Fall Risk: Velarde Fall Risk Score: 50 (High Risk) Precautions/Restrictions: N/A Family/Caregiver Present: none Objective ADLs Grooming: SBA UE Bathing: Min Assist LE Bathing: Min Assist UE Dressing: Min Assist LE Dressing: Contact Guard Pt completed oral hygiene seated EOB with SBA for safety and v/c's for sequencing. Pt completed UB bathing with min assist for cleanness under BL axillary and v/c's for sequencing. Pt completed LB bathing with min assist below knees and v/c's for anterior/posterior hygiene. Pt completed UB dressing with min assist to adjust gown from posterior d/t limited reach. Pt was able to don fresh depends with CGA for standing balance. Bed Mobility Supine to sit: Min Assist Sit to supine: Min Assist HOB slightly elevated and use of bed-rails. Pt completed lying to sitting EOB with min assist to elevate trunk. No reports of dizziness with positional changes. Pt returns supine with min assist to elevate BL LE's into bed and v/c's for alignment. Transfers/Mobility Sit to stand: Contact Guard Stand to sit: Contact Guard Bedside commode: Contact Guard Sitting balance: SBA Standing balance: Contact Guard Functional mobility: Contact Guard Pt completed x2 STS from EOB to fww with CGA for steadiness with elevation/controlled descent. Pt completed stand pivot to BSC with CGA for steadiness with guiding hips to BSC/ controlled descent. Pt sat EOB for UB grooming interventions with SBA for safety. Pt completed standing balance for ~3 mins with LB ADL's and CGA for steadiness with fww in front. Pt completed light bedroom mobility with CGA for steadiness and v/c's for proper fww alignment. Device(s) used: 4 wheeled walker, hospital bed, and oxygen Cognition Exceptions - Following commands: follows one step commands with increased time and follows one step commands with repetition - Attention span: difficulty attending to directions and difficulty dividing attention - Memory: decreased short term memory - Safety judgement: decreased awareness of need for assistance and decreased awareness of need for safety - Problem solving: assistance required to generate solutions, assistance required to implement solutions, assistance required to identify errors made, assistance required to correct errors made, and decreased awareness of errors - Insights: not aware of deficits - Initiation: requires cues for some - Sequencing: requires cues for some Plan Continue acute OT per plan of care. Safety/Education Safety Safety Devices in place: All fall risk precautions in place, call light within reach, left in bed, bed alarm in place, gait belt, patient at risk for falls, and nurse notified Restraints: No Education Education Given To: patient Education Provided: OT Role, Plan of Care, ADL Adaptive Strategies, Transfer Training, Energy Conservation, Equipment, Fall Prevention Education, Discharge Recommendations, and Benefits of Increasing Activity Education Method: Verbal, Demonstration, and Teach Back Barriers to Learning: Cognition Education Outcome: Verbalized Understanding AM-PAC AM-PAC Inpatient Daily Activity Raw Score: 19 ADL Inpatient CMS G-Code Modifier: CK Goals Patient Stated Goal: Encounter Problems Encounter Problems (Active) Dressings Lower Extremities Patient will dress lower body with SUP (Progressing) Start: 07/12/23 Expected End: 07/19/23 Mobility Patient will demonstrate functional ambulation with SUP (Progressing) Start: 07/12/23 Expected End: 07/19/23 Toileting Patient will complete toileting tasks at standard toilet with supervision. (Progressing) Start: 07/12/23 Expected End: 07/19/23 Transfers Patient will complete functional transfer with rolling walker with supervision in order to prepare for ambulation. (Progressing) Start: 07/12/23 Expected End: 07/19/23 Therapy Time Individual Co-treatment Time In 1309 Time Out 1334 Minutes 25 Timed Code Treatment Minutes: 25 Minutes (1 ADL, 1 THER ACT) FIFI Castro/Heather Images from the original note were not included. Hospitalist Progress Note 07/19/2023 Subjective: Admit Date: 07/11/2023 PCP: Yenifer Schulz DO Room#: [id number] A Brief Hospital course: Yelena is a 88 y.o. female with past medical history below who presents with chief complaint listed above. She states that she has been feeling weaker and more "unwell" over the past few weeks, has not had an appetite. Denies having any flu like symptoms - no cough, congestion, CP. Does have some SOB - which she states is chronic for her. Currently, lives at home - has had several falls due to weakness - and was not able to walk from the bed to the couch today. Describes general aches and pains. Patient is a vague historian - difficulty to get a history from. Interval History: Patient had episode during breakfast of choking. Will order speech study. No overnight issues. Patient denies any pain or discomfort resting quietly in bed. Case and plan discussed with patient and bedside nurse. All questions answered. Adult diet Regular 24HR INTAKE/OUTPUT: No intake or output data in the 24 hours ending 07/19/23 0837 Past Medical History: Past Medical History: Diagnosis Date Anxiety Arthritis Hypertension LABS: CBC: Recent Labs 07/17/238 07/19/23 0239 WBC 3.3* 8.2 RBC 3.79* 3.58* HGB 10.2* 9.8* HCT 30.9* 29.1* MCV 81.5 81.2 RDW 15.4* 15.1* PLT 415 516* BMP: Recent Labs 07/17/238 07/19/23 0239 NA 135 135 K 3.4* 4.3 CL 106 106 CO2 20* 26 BUN 18* 37* CREATININE 1.01 0.95 GLUCOSE 189* 138* CALCIUM 8.2* 8.5 ANIONGAP 9 3 LIVER PROFILE:No results for input(s): "AST", "ALT", "BILITOT", "ALKPHOS", "PROT" in the last 72 hours. No lab exists for component: LABALBU PT/INR: No results for input(s): "PROTIME", "INR" in the last 72 hours. CARDIAC ENZYMES: No results for input(s): "TROPONINI" in the last 72 hours. Procalcitonin: No results found for: "PROCAL" COVID-19 PCR: No results for input(s): "COVID19" in the last 72 hours. Objective: Vitals: BP 112/56 Pulse 65 Temp 36.5 C (97.7 F) (Temporal) Resp 12 Ht 5' 4" (1.626 m) Wt 151 lb (68.5 kg) SpO2 94% BMI 25.92 kg/m Pulse Ox: SpO2 Av.4 % Min: 93 % Max: 96 % Supplemental O2: O2 Flow Rate (L/min): 1 L/min Physical Exam Cardiovascular: Rate and Rhythm: Normal rate and regular rhythm. Heart sounds: Normal heart sounds. Pulmonary: Breath sounds: Normal breath sounds. Abdominal: General: Bowel sounds are normal. Palpations: Abdomen is soft. Musculoskeletal: General: Normal range of motion. Skin: General: Skin is warm and dry. Neurological: General: No focal deficit present. Mental Status: She is alert. Mental status is at baseline. Psychiatric: Mood and Affect: Mood normal. Behavior: Behavior normal. Medications: amLODIPine, 10 mg, Oral, Daily aspirin, 81 mg, Oral, Daily enoxaparin, 40 mg, SubCUTAneous, Daily hydrALAZINE, 50 mg, Oral, TID ipratropium-albuterol, 3 mL, Nebulization, TID metoprolol tartrate, 100 mg, Oral, BID oseltamivir, 30 mg, Oral, BID pantoprazole, 40 mg, Oral, qAM AC polyethylene glycol (PEG) 3350, 17 g, Oral, Daily potassium chloride CR, 20 mEq, Oral, Daily sertraline, 25 mg, Oral, Daily [START ON 07/25/2023] sertraline, 50 mg, Oral, Daily Assessment Data: (CAT1) Reviewed 1 notes from different specialty or health system (each=1). (CAT1) Reviewed 1 labs/studies ordered by another provider not previously counted (each=1, panels count as 1). (LOW: 2x CAT1 or independent historian MOD: 3x CAT1 or 1x CAT3 EXTENSIVE: 3x CAT1 and 1x CAT3) Acute, acute on chronic, unstable/uncontrolled chronic problems/diagnoses: Adult failure to thrive- palliative following, PT/OT rec SNF at discharge , CM involved Depression- patient on Paxil, high risk medication for her age group, Paxil titrated and DC'd and changed to Zoloft New oxygen requirement- not on oxygen at home, currently on room air with saturations in the mid to high 90s. CXR 07/16: see above results with concern for possible infiltrates although patient is afebrile. Urine antigens negative. Unable to obtain sputum for pneumonia PCR Influenza A: pt is symptomatic with cough and shortness of breath, supportive care, continue Tamiflu Mild hypokalemia: Will add supplemental potassium. Dysphagia: Will ask speech to see the patient and placed the patient on soft and bite-size food menu Stable chronic problems affecting care, new non-acute diagnoses: HTN- continue amlodipine and hydralazine GERD- PPI Plan As a result of the above findings & factors, the following mgmt was pursued: - - am labs, replace lytes prn - PT/OT/CM/SW - delirium precautions: increase activity and limit nighttime disturbances - DVT prophylaxis: enoxaparin and encourage ambulation Complexity: Acute, uncomplicated illness or injury (LOW). Risk: Low risk diagnostic testing or treatment (LOW). Advance Directive: DNR-CCA Anticipated Discharge - Date -07/22/2023 - Location - Skilled Facility - Pending the following -flu isolation completed Total time spent (which include face to face and non face to face encounters) : minutes Toxic drug monitoring/narrow therapeutic index drug monitoring : # Drug name : # Route administered : # Method of monitoring : Extended Emergency Contact Information Primary Emergency Contact: lindapamellaTiffanyJulianne Mobile Relation: Sister Preferred language: [place] [employer] Assistant needed? No GENEVA MCCORD CNP Division of Hospitalist Medicine Acute care [facility] Comment: Please note this report has been produced using speech recognition software and may contain errors related to that system including errors in grammar, punctuation, and spelling, as well as words and phrases that may be inappropriate. If there is any questions or concerns please feel free to contact the dictating provider for clarification Nutrition Assessment Type and Reason for Visit: Reassess Nutrition Recommendations/Plan: Continue with Adult diet Regular Continue with Ensure Plus High Protein BID. Ensure Plus High Protein provides 350 kcals, 20g protein per serving. Please document pt's PO intakes via flowsheet to accurately assess PO intake adequacy. Monitor intakes, weights, and labs weekly. RD will follow. Malnutrition Assessment: Malnutrition Status: Moderate malnutrition Context: Chronic Illness Findings of the 6 clinical characteristics of malnutrition: Energy Intake: 75% or less estimated energy requirements for 1 month or longer Weight Loss: (16.1% wt loss in ~1 yr) Body Fat Loss: Mild body fat loss Orbital, Triceps Muscle Mass Loss: Mild muscle mass loss Clavicles (pectoralis & deltoids) Fluid Accumulation: Mild Extremities Disability Services Coordinator Strength: Not Performed Nutrition Assessment: Pt reported that she is eating well. Reports she is eating >50% to most of her food on each tray. Pt continues to drink Ensure Plus BID. Pt had no complaints at this time. Bed scale measured the pt at 155.1# Estimated Daily Nutrient Needs: Energy Requirements Based On: Kcal/kg Weight Used for Energy Requirements: [place] Weight for Energy Calculation (kg): 55 kg Total Energy Requirements (kcals/day): 9357-5999 kcals (28-30 kcals/kg) Weight Used for Protein Requirements: [place] Weight in Kg Used for Protein Requirements: 55 kg Estimated Total Protein (g/day): 55-66 (1-1.2g/kg) Estimated Daily Total Fluid (ml/day): 1540 ml/day or per MD Nutrition Related Findings: non pitting BLE edema; K+ 3.4, CO2 20, BUN 18, GFR 54.3, Mag 1.4, Vitamin D 37, Hgb 10.2, Hct 30.9, albumin 3.2 Wound Type: (scattered abrasions) Current Nutrition Therapies: Adult diet Regular Current Oral Intake Average Meal Intake: 76-100% Average Supplements Intake: 76-100% Anthropometric Measures: Height: 162.6 cm (5' 4") Current Body Weight: 70.4 kg (155 lb 1.6 oz) Weight Source: Bed Scale Admission Body Weight: 65.8 kg (145 lb) (bed scale) Usual Body Weight: 81.6 kg (180 lb) (08/01/22) % Weight Change (Calculated): -16.1 [place] Body Weight (lbs) (Calculated): 120 lbs [place] Body Weight (Kg) (Calculated): 55 kg % [place] Body Weight (Calculated): 129.3 % BMI (kg/m2) (Calculated): 26.6 Weight Adjustment For: No Adjustment BMI Categories: Overweight (BMI 25.0-29.9) Nutrition Diagnosis: Moderate malnutrition related to inadequate protein-energy intake as evidenced by poor intake prior to admission, mild muscle loss, mild loss of subcutaneous fat, localized or generalized fluid accumulation Nutrition Interventions: Nutrition Education/Counseling: No recommendation at this time Coordination of Nutrition Care: Continue to monitor while inpatient Plan of Care discussed with: Patient Goals: Previous Goal Met: Progressing toward Goal(s) Goals: PO intake 75% or greater, by next RD assessment Nutrition Monitoring and Evaluation: Behavioral-Environmental Outcomes: None Identified Food/Nutrient Intake Outcomes: Diet Advancement/Tolerance, Food and Nutrient Intake, Supplement Intake Physical Signs/Symptoms Outcomes: Biochemical Data, GI Status, Fluid Status or Edema, Nutrition Focused Physical Findings, Skin, Weight Discharge Planning: Continue current diet, Continue Oral Nutrition Supplement Noel Gilmore RD Contact: *[phone] or via Secure Chat Images from the original note were not included. Palliative Care Progress Note Chief Complaint: Yelena Chandra is a 88 y.o. female with chief complaint of failure to thrive Palliative care consulted for goals of care Palliative Care is actively following. Assessment/Plan Goals of care - met with patient this morning, she was awake, alert, oriented X 3 - patient's NOK is sister Julianne and brother who lives in [place] - patient today stated that she already has HCPOA completed - patient's goal is to go for Rehab - reached out to sister Tiffany Goncalves, updated on patient's condition - Julianne to look through patient's paperwork for HCPOA documents - Code status remains DNRCCA - patient planned for discharge to [facility] when medically stable Depression - patient was on paxil - appreciate geriatrics team weaning Paxil due to anticholinergic side effects and starting Zoloft -per Geriatics notes zoloft started 07/15 to decrease Paxil from 20 to 10mg daily times 3 days, then stop and start Zoloft 25mg daily times 7 days, then increase to Zoloft 50mg daily Failure to thrive - patient agreeable to go to SNF for therapy Total of 55 minutes spent on this encounter including Chart review, Patient visit and exam, Documentation in EHR, Care coordination, and Communicating with primary attending or other consultants. Discharge planning: Not ready for discharge due to ongoing goals of care discussion Patient meets criteria for general inpatient hospice care including the following: N/A - Palliative Care Patient Referrals to: None Discussed patient and the plan of care with the other interdisciplinary team (IDT) members of Palliative Care Team, and with Primary Attending, Patient, and Family Subjective: Subjective/Events Yelena Chandra is a 88 y.o. female admitted to [facility] on 07/11/23 for failure to thrive. Patient seen and examined this morning. Patient stated that she is feeling better. Patient denied any complains. Patient's last bowel movement yesterday. Goals of care:Support for Family/Caregiver and Continue Current management Advance Directives: Full Code Surrogate: Extended Family Prognosis: unknown Spiritual assessment: No spiritual distress identified Bereavement and grief: Grief Issues Not Identified Review of Systems ROS: See palliative care ROS/ESAS below; All other systems were reviewed and are negative. Dawson Symptom Assessment Score Dawson Score Pain Score 0 Tiredness Score 4 Nausea Score 0 Depression Score 0 Anxiety Score 0 Drowsiness Score 0 Anorexia Score (0= eating well, 10= not eating) 4 Wellbeing Score (10= worst sense of well-being) 4 Constipation 0 Dyspnea Score (0= no shortness of breath) 0 FLACC Scale (For Pain Assessment of the Non-Verbal Patient) Patient verbal Assessed by: provider. Social history: [place] status: no Marital status: Living status: with sister and PATRICIA Work history: retired, [employer] Family Meeting: (if discussing Advanced Care Planning, include .PALLACP) Participants: patient and sister Alejandra Family meeting was held to discuss:Diagnosis and Prognosis, Goals of Care, Treatment Options, Symptom Management, Advanced Care Planning, Prior Expressed Wishes, and Discharge Plan Objective: Physical Exam BP 119/68 (BP Location: Left arm, Patient Position: Sitting) Pulse 78 Temp 36.4 C (97.6 F) (Temporal) Resp 20 Ht 5' 4" (1.626 m) Wt 151 lb (68.5 kg) SpO2 96% BMI 25.92 kg/m Physical Exam Constitutional: Appearance: She is ill-appearing. HENT: Head: Normocephalic and atraumatic. Right Ear: External ear normal. Left Ear: External ear normal. Nose: Nose normal. Mouth/Throat: Mouth: Mucous membranes are moist. Eyes: General: No scleral icterus. Right eye: No discharge. Left eye: No discharge. Pupils: Pupils are equal, round, and reactive to light. Cardiovascular: Rate and Rhythm: Normal rate and regular rhythm. Pulses: Normal pulses. Heart sounds: Normal heart sounds. No murmur heard. Pulmonary: Effort: Pulmonary effort is normal. Breath sounds: Normal breath sounds. No stridor. No wheezing. Abdominal: General: Abdomen is flat. Bowel sounds are normal. Palpations: Abdomen is soft. Musculoskeletal: General: No swelling. Cervical back: Neck supple. Right lower leg: No edema. Left lower leg: No edema. Skin: General: Skin is warm. Coloration: Skin is not jaundiced. Neurological: Mental Status: She is alert and oriented to person, place, and time. Motor: Weakness present. Psychiatric: Mood and Affect: Mood normal. Current Medications: Inpatient medications reviewed: yes Home medications reviewed: yes OARRS Reviewed: No Report Available 24 Hour PRN Meds: none Results/Verification of Data Review Objective data reviewed (be specific which labs, imaging reports with dates reviewed): - labs, imaging, MAR reviewed 07/18/23 Data in Support of Terminal Illness: Is patient hospice appropriate? TBD Images from the original note were not included. Hospitalist Progress Note 07/18/2023 Subjective: Admit Date: 07/11/2023 PCP: Yenifer Schulz DO Room#: B4-141/B4-942 A Brief Hospital course: Yelena is a 88 y.o. female with past medical history below who presents with chief complaint listed above. She states that she has been feeling weaker and more "unwell" over the past few weeks, has not had an appetite. Denies having any flu like symptoms - no cough, congestion, CP. Does have some SOB - which she states is chronic for her. Currently, lives at home - has had several falls due to weakness - and was not able to walk from the bed to the couch today. Describes general aches and pains. Patient is a vague historian - difficulty to get a history from. Interval History: No overnight issues. Patient seen in room. She was sitting on the side of the bed after getting up to the bedside commode. The patient is quite dyspneic with exertion but not requiring oxygen at this time. She denies any pain or discomfort. She is eating and drinking well. After talking to infectious disease the patient will need to remain in isolation until 07/22/2023 due to her flu diagnosis. Patient declines me needing to call family to update them. Case and plan discussed with patient and bedside nurse. All questions answered. Adult diet Regular 24HR INTAKE/OUTPUT: Intake/Output Summary (Last 24 hours) at 07/18/2023 0559 Last data filed at 07/17/2023 0946 Gross per 24 hour Intake 50 ml Output 850 ml Net -800 ml Past Medical History: Past Medical History: Diagnosis Date Anxiety Arthritis Hypertension LABS: CBC: Recent Labs 07/16/23 0508 07/17/23 0418 WBC 4.3 3.3* RBC 3.55* 3.79* HGB 9.6* 10.2* HCT 29.3* 30.9* MCV 82.7 81.5 RDW 14.9* 15.4* PLT 391 415 BMP: Recent Labs 07/16/23 0143 07/17/23 0418 NA 131* 135 K 3.6 3.4* CL 109* 106 CO2 18* 20* BUN 15 18* CREATININE 0.83 1.01 GLUCOSE 103* 189* CALCIUM 7.8* 8.2* ANIONGAP 4 9 LIVER PROFILE:No results for input(s): "AST", "ALT", "BILITOT", "ALKPHOS", "PROT" in the last 72 hours. No lab exists for component: LABALBU PT/INR: No results for input(s): "PROTIME", "INR" in the last 72 hours. CARDIAC ENZYMES: No results for input(s): "TROPONINI" in the last 72 hours. Procalcitonin: No results found for: "PROCAL" COVID-19 PCR: No results for input(s): "COVID19" in the last 72 hours. Objective: Vitals: BP 116/62 Pulse 81 Temp 36.8 C (98.2 F) (Temporal) Resp 17 Ht 5' 4" (1.626 m) Wt 151 lb (68.5 kg) SpO2 93% BMI 25.92 kg/m Pulse Ox: SpO2 Av % Min: 93 % Max: 97 % Supplemental O2: O2 Flow Rate (L/min): 1 L/min Physical Exam Constitutional: Appearance: She is obese. Cardiovascular: Rate and Rhythm: Normal rate and regular rhythm. Heart sounds: Normal heart sounds. Pulmonary: Breath sounds: Rhonchi (Scattered rhonchi with few expiratory wheezes) present. Abdominal: General: Bowel sounds are normal. Palpations: Abdomen is soft. Musculoskeletal: General: No swelling. Normal range of motion. Skin: General: Skin is warm and dry. Neurological: General: No focal deficit present. Mental Status: She is alert and oriented to person, place, and time. Psychiatric: Mood and Affect: Mood normal. Behavior: Behavior normal. Medications: amLODIPine, 10 mg, Oral, Daily aspirin, 81 mg, Oral, Daily enoxaparin, 40 mg, SubCUTAneous, Daily hydrALAZINE, 50 mg, Oral, TID ipratropium-albuterol, 3 mL, Nebulization, TID metoprolol tartrate, 100 mg, Oral, BID oseltamivir, 30 mg, Oral, BID pantoprazole, 40 mg, Oral, qAM AC polyethylene glycol (PEG) 3350, 17 g, Oral, Daily predniSONE, 40 mg, Oral, Daily sertraline, 25 mg, Oral, Daily [START ON 07/25/2023] sertraline, 50 mg, Oral, Daily Assessment Data: (CAT1) Reviewed 2 notes from different specialty or health system (each=1). (CAT1) Reviewed 2 labs/studies ordered by another provider not previously counted (each=1, panels count as 1). (LOW: 2x CAT1 or independent historian MOD: 3x CAT1 or 1x CAT3 EXTENSIVE: 3x CAT1 and 1x CAT3) CXR 07/16/23 IMPRESSION: Small effusions with associated atelectasis. Pathcy opacity in the right lower lobe may reflect a superimposed infectious/inflammatory process. Prominence of the central vasculature without overt pulmonary edema. Prominence of the superior mediastinum,stable, likely due to enlarged thyroid gland. Report Dictated on Electronically Signed By: Chester Hill MD Electronically Signed Date/Time: 07/16/2023 3:35 PM EST Acute, acute on chronic, unstable/uncontrolled chronic problems/diagnoses: Adult failure to thrive- palliative following, PT/OT rec SNF at discharge , CM involved Depression- patient on Paxil, high risk medication for her age group, geriatrics titrating off Paxil and changing to Zoloft New oxygen requirement- not on oxygen at home, currently on room air with saturations in the mid to high 90s. CXR 07/16: see above results with concern for possible infiltrates although patient is afebrile. Will send Urine antigens and attempt pneumonia PCR but patient has no productive sputum Influenza A: pt is symptomatic with cough and shortness of breath, supportive care, continue Tamiflu Mild hypokalemia: Will add supplemental potassium. Stable chronic problems affecting care, new non-acute diagnoses: HTN- continue amlodipine and hydralazine GERD- PPI Plan As a result of the above findings & factors, the following mgmt was pursued: -Obtain BMP and CBC in a.m. - am labs, replace lytes prn - PT/OT/CM/SW - delirium precautions: increase activity and limit nighttime disturbances - DVT prophylaxis: enoxaparin and encourage ambulation Complexity: Acute illness with systemic symptoms (MOD). Risk: Care and management is being impacted by the following SDOH: comorbid conditions and memory loss requiring SNF and possibly jail care (MOD). Advance Directive: DNR-CCA Anticipated Discharge - Date - TBD - Location - Skilled Facility - Pending the following - Course of flu and clinical picture Total time spent (which include face to face and non face to face encounters) : 25 minutes Toxic drug monitoring/narrow therapeutic index drug monitoring : # Drug name : # Route administered : # Method of monitoring : Extended Emergency Contact Information Primary Emergency Contact: Julianne Bravo Mobile Relation: Sister Preferred language: [place] Financial Services Assistant needed? No GENEVA MCCORD CNP Division of Hospitalist Medicine [facility] Comment: Please note this report has been produced using speech recognition software and may contain errors related to that system including errors in grammar, punctuation, and spelling, as well as words and phrases that may be inappropriate. If there is any questions or concerns please feel free to contact the dictating provider for clarification Images from the original note were not included. PHYSICAL THERAPY [facility] Treatment Note Name/MRN: Yelena Chandra ([id number]) Date of : 1935 Age: 88 y.o. Room/Bed: B4461/B4461 A Visit #: 3 out of 5 Discharge Recommendation: Nursing Home Facility Equipment Needed: No Assessment Pt is demonstrating progress toward therapy goals and demos good participation in session. Pt is limited by fatigue, generalized weakness and decreased activity tolerance. Pt completed bed mobility with Ezekiel, transfers with Ezekiel, and ambulation with FWW with Ezekiel. Pt fatigues quickly and requires recovery time throughout session. Edu regarding proper breathing techniques. SpO2 WFL. Pt would benefit from continued skilled PT to improve functional independence and safety. Recommend SNF. Subjective Patient pleasant and agreeable to therapy. Observation: purewick intact, O2 intact Vitals: SpO2 94% Pain: Pt denies any current pain. Medical Precautions: Droplet Proper PPE donned/doffed in accordance with facility standards. Fall Risk: Velarde Fall Risk Score: 75 (High Risk) Precautions/Restrictions: N/A Overall Cognitive Status: Exceptions - Safety judgement: decreased awareness of need for assistance and decreased awareness of need for safety - Problem solving: assistance required to generate solutions, assistance required to implement solutions, assistance required to identify errors made, assistance required to correct errors made, and decreased awareness of errors - Insights: decreased awareness of deficits - Sequencing: requires cues for some Family/Caregiver Present: none Objective Ambulation Ambulation 1 Assistive device(s) used: front wheeled walker Assist level: Min Assist Distance (ft): 25' x2 Quality of gait: reciprocal stepping, shuffling, slow kathleen. Verbal cues for safe use and appropriate proximity to FWW. Pt demos decreased safety awareness. Cues required for adjustment of FWW to avoid obstacles in path and for proper alignment with surface before sitting down. Assist required with management of O2 tubing. Transfers/Mobility Sit to stand: Min Assist Stand to sit: Min Assist From EOB and from toilet. Verbal cues for proper hand placement and increased anterior weight shift. Increased time required to come to stand. Pt also required assist to control descent. Continued edu warranted to improve recall of proper technique. Device(s) used: front wheeled walker Bed Mobility Supine to sit: Min Assist Sit to supine: Min Assist HOB elevated and use of bed rail. Increased time/effort required to perform. Verbal cues for proper sequencing and positioning of hips to improve ease with bed mobility tasks. Ezekiel required to bring trunk fwd and position hips when coming to sit. Ezekiel required for eccentric control of trunk when returning to supine. Pt denied dizziness with positional changes. Plan Continue acute PT per plan of care. Safety/Education Safety Safety Devices in place: All fall risk precautions in place, call light within reach, left in bed, gait belt, patient at risk for falls, nurse notified, and no alarms engaged upon entry Restraints: No Education Education Given To: patient Education Provided: PT Role, PT Goals, Gait Training, Plan of Care, Transfer Training, and Equipment Education Method: Verbal and Demonstration Barriers to Learning: Cognition Education Outcome: Verbalized Understanding and Continued Education Needed Outcome Measures AM-PAC AM-PAC Inpatient Mobility Raw Score (No Stairs) : 15 Goals Patient Stated Goal: Encounter Problems Encounter Problems (Active) Balance Patient will maintain dynamic standing balance for 5 minutes with SBA in order to demonstrate decreased risk of falling. (Progressing) Start: 07/12/23 Expected End: 07/17/23 Exercise Patient will complete lower extremity exercises for 1-2 sets / 5-10 reps in order to improve strength and activity tolerance for mobility. (Not Addressed) Start: 07/12/23 Expected End: 07/17/23 Mobility Patient will ambulate 75 feet with SBA and rolling walker in order to improve safety and independence with mobility. (Progressing) Start: 07/12/23 Expected End: 07/17/23 Transfers Patient will perform bed mobility with modified independence in order to improve independence and prepare for out of bed mobility. (Progressing) Start: 07/12/23 Expected End: 07/17/23 Patient will complete functional transfer with rolling walker with SBA in order to prepare for ambulation. (Progressing) Start: 07/12/23 Expected End: 07/17/23 Therapy Time Individual Co-treatment Time In 1355 Time Out 1425 Minutes 30 Timed Code Treatment Minutes: 27 Minutes (x1 ther act, x1 gait) Mylene Grenee PTA [facility] Geriatric Medicine Inpatient Consult Service Admission Date: 07/11/2023 Assessment Principal Problem: Decreased activities of daily living (ADL) Active Problems: Moderate malnutrition (CMS/HCC) (HCC) Plan Fall Debility -Multiple risk factors including decrease PO intake, weakness, cognitive deficits, and possible medication side effect -per sisterJulianne-patient had one fall about a year ago, fell off the toilet and then prior to this ED visit, patient was too weak to ambulate and had to sit down on the floor -Continue PT/OT as able while inpatient. PT - min assist for bed mobility. Slow progress. Recommend SNF. -Anticipate discharge to SNF -Vitamin D level normal at 37 -Check orthostatic vital signs as able -Medications with associated fall risk include: Paxil Cognitive deficits: -oriented to self and place, not date today. Remains pleasant. -MMSE 07/14 -patient's sister has noted patient has had short term memory loss recently -Clock Drawing Test 07/14: Total Score 3/7 -recommend follow up with [facility] in 4 weeks post discharge to home for further cognitive testing At risk for delirium --appears to have increased confusion, no agitation --Risk factors: advanced age, sensory impairments, acute illness, high risk medications, and baseline cognitive deficits --now requiring oxygen 2 L. CXR showed small effusions, patchy infiltrate RLL. Influenza A positive. Started on tamiflu and prednisone. --Encourage PO intake, time up in chair, family visits, supervised ambulation, and sleep hygiene --If agitated, assess for and consider treating for pain --QTc= 505 --No antipsychotic unless patient is danger to self/others/treatment QTC >500 --continue PRN melatonin at HS --Monitor for constipation/urinary retention - last BM 07/16- small; incontinent of urine. --Possible medication contributions: steroids Depression/anxiety -per family has been on Paxil for many years -cont to wean Paxil due to anticholinergic side effects and start Zoloft -started 07/15 decrease Paxil from 20 to 10mg daily times 3 days, then stop and start Zoloft 25mg daily times 7 days, then increase to Zoloft 50mg daily. Tolerating. -monitor patient closely for signs and symptoms of withdrawal from Paxil during wean. Patient with confusion however may be also related to possible acute respiratory illness. Monitor. -patient reports mood is good -previous conversation with pt's sister, she denies patient being anxious at home, but more depressive symptoms-not wanting to get out of bed and decrease PO intake since patient's dog 4-5 months ago Malnutrition -seen by speech therapy 07/13, okay for regular diet, thin liquids -per sister, appetite has been poor for the past 4-5 months -per EPIC review, patient has had approximately 38 pound weight loss in past 11 months -encourage PO intake -slab worker following, supplements -palliative care following Constipation -BM small 07/16 - Miralax daily started 07/16. Follow-up: will follow with you Subjective Chief Complaint: confusion Geriatrics consulted for [facility] HPI- The patient is known to me. 88 y.o. year-old female admitted to acute care from home with pmhx of depression/anxiety, HTN, GERD presented [facility] ED on 07/11/23 after c/o feeling weaker and more "unwell" over the past few weeks, has not had an appetite. Currently, lives at home - has had several falls due to weakness - and was not able to walk from the bed to the couch. Patient has been diagnosed with influenza on 07/16. Interval History: Remains on general medical/surgical floor . Patient reports eating breakfast. Denies pain. States the oxygen is maintaining her breathing. Told patient she has the flu and she said "I still have it?" Nursing reports no overnight issues, no agitation. Intake documented above 75% Seen by PT. Min assist for bed mobility. Ambulated no. Recommending short term SNF for rehab. Review of Systems HENT: Positive for congestion. Respiratory: Positive for cough. Negative for shortness of breath. Genitourinary: Negative for difficulty urinating. Psychiatric/Behavioral: Positive for confusion. Negative for behavioral problems and sleep disturbance. Objective BP 108/57 (BP Location: Left arm, Patient Position: Lying) Pulse 72 Temp 36.1 C (97 F) (Temporal) Resp 18 Ht 5' 4" (1.626 m) Wt 151 lb (68.5 kg) SpO2 97% BMI 25.92 kg/m Intake/Output Summary (Last 24 hours) at 07/17/2023 1132 Last data filed at 07/17/2023 0946 Gross per 24 hour Intake 50 ml Output 1750 ml Net -1700 ml Wt Readings from Last 3 Encounters: 07/14/23 151 lb (68.5 kg) 08/01/22 183 lb (83 kg) Current Facility-Administered Medications: acetaminophen (Tylenol) tablet 650 mg, 650 mg, Oral, q6h PRN, 650 mg at 07/13/23 0944 OR acetaminophen (Tylenol) suppository 650 mg, 650 mg, Rectal, q6h PRN, Nicole Lombardi MD amLODIPine (Norvasc) tablet 10 mg, 10 mg, Oral, Daily, Nicole Lombardi MD, 10 mg at 07/17/23921 aspirin EC tablet 81 mg, 81 mg, Oral, Daily, Nicole Lombardi MD, 81 mg at 07/17/23920 enoxaparin (Lovenox) syringe 40 mg, 40 mg, SubCUTAneous, Daily, Nicole Lombardi MD, 40 mg at 07/17/23921 hydrALAZINE (Apresoline) tablet 50 mg, 50 mg, Oral, TID, Nicole Lombardi MD, 50 mg at 07/17/23920 ipratropium-albuterol (Duo-Neb) 0.5-2.5 mg/3 mL nebulizer solution 3 mL, 3 mL, Nebulization, TID, GENEVA Arboleda CNP, 3 mL at 07/17/23 0850 melatonin tablet 3 mg, 3 mg, Oral, Nightly PRN, Melissa EzGENEVA reyes CNP metoprolol tartrate (Lopressor) tablet 100 mg, 100 mg, Oral, BID, Nicole Lombardi MD, 100 mg at 07/17/2321 ondansetron ODT (Zofran-ODT) disintegrating tablet 4 mg, 4 mg, Oral, q8h PRN OR ondansetron (Zofran) injection 4 mg, 4 mg, IntraVENous, q6h PRN, Nicole Lombardi MD [COMPLETED] oseltamivir (Tamiflu) capsule 75 mg, 75 mg, Oral, Once, 75 mg at 07/16/23 1838 FOLLOWED BY oseltamivir (Tamiflu) capsule 30 mg, 30 mg, Oral, BID, GENEVA Arboleda CNP, 30 mg at 07/17/23 0922 pantoprazole (ProtoNix) EC tablet 40 mg, 40 mg, Oral, Nicole Milner MD, 40 mg at 07/17/23 0644 polyethylene glycol (PEG) 3350 (Miralax) packet 17 g, 17 g, Oral, Daily, Melissa Quintanilla, RV REPAIRER - RATE ENGINEER, 17 g at 07/17/23 0922 predniSONE (Deltasone) tablet 40 mg, 40 mg, Oral, Daily, Yahaira Griffith, RV REPAIRER - RATE ENGINEER, 40 mg at 07/17/23 0922 [START ON 07/18/2023] sertraline (Zoloft) tablet 25 mg, 25 mg, Oral, Daily, Nuzhat Orozco RV REPAIRER - RATE ENGINEER [START ON 07/25/2023] sertraline (Zoloft) tablet 50 mg, 50 mg, Oral, Daily, Nuzhat Gerardo FragosoErnesto, RV REPAIRER - RATE ENGINEER Physical Exam Cardiovascular: Rate and Rhythm: Normal rate and regular rhythm. Pulmonary: Effort: Pulmonary effort is normal. No respiratory distress. Breath sounds: Wheezing present. Comments: Cough noted Abdominal: General: Bowel sounds are normal. There is no distension. Palpations: Abdomen is soft. Tenderness: There is no abdominal tenderness. Musculoskeletal: Right lower leg: No edema. Left lower leg: No edema. Skin: General: Skin is warm and dry. Neurological: Mental Status: She is alert. She is disoriented. Cranial Nerves: No cranial nerve deficit. Comments: Oriented to self, place, not date. States month is Sept. Moves all extremities equally Psychiatric: Mood and Affect: Mood normal. Comments: Pleasant and laughing Labs and Imaging: Recent Results (from the past 24 hour(s)) Respiratory Pathogens Panel by PCR Collection Time: 07/16/23 1:38 PM Specimen: Nasopharynx; Swab Result Value Ref Range SARS-CoV-2 Not Detected Not Detected Adenovirus Not Detected Not Detected Coronavirus HKU1 Not Detected Not Detected Coronavirus NL63 Not Detected Not Detected Coronavirus 229E Not Detected Not Detected Coronavirus OC43 Not Detected Not Detected Human Metapneumovirus Not Detected Not Detected Human Rhinovirus/Enterovirus Not Detected Not Detected Influenza A Detected (A) Not Detected Influenza B Not Detected Not Detected Parainfluenza 1 Not Detected Not Detected Parainfluenza 2 Not Detected Not Detected Parainfluenza 3 Not Detected Not Detected Parainfluenza 4 Not Detected Not Detected Respiratory Syncytial Virus Not Detected Not Detected Bordetella pertussis Not Detected Not Detected Bordetella parapertussis Not Detected Not Detected Chlamydia pneumoniae Not Detected Not Detected Mycoplasma pneumoniae Not Detected Not Detected Legionella and Streptococcus Urine Antigen Collection Time: 07/16/23 5:07 PM Specimen: Urine, Clean Catch Result Value Ref Range Legionella pneumophila Ag Not Detected Not Detected Streptococcus pneumoniae Ag Not Detected Not Detected CBC Collection Time: 07/17/23 4:18 AM Result Value Ref Range Auto WBC 3.3 (L) 3.6 - 10.7 10*3/uL RBC 3.79 (L) 3.8 - 5.20 10*6/uL Hemoglobin 10.2 (L) 11.7 - 16.0 g/dL Hematocrit 30.9 (L) 35.0 - 47.0 % MCV 81.5 80.0 - 98.0 fL MCH 26.9 26.0 - 34.0 pg MCHC 33.0 32.0 - 36.0 % RDW 15.4 (H) 11.5 - 14.5 % Platelets 415 140 - 440 10*3/uL MPV 7.8 7.4 - 12.4 fL Basic metabolic panel Collection Time: 07/17/23 4:18 AM Result Value Ref Range SODIUM 135 135 - 145 mmol/L POTASSIUM 3.4 (L) 3.5 - 5.1 mmol/L CHLORIDE 106 98 - 107 mmol/L CARBON DIOXIDE 20 (L) 22 - 30 mmol/L UREA NITROGEN 18 (H) 7 - 17 mg/dL CREATININE 1.01 0.52 - 1.04 mg/dL GLUCOSE 189 (H) 70 - 100 mg/dL CALCIUM 8.2 (L) 8.4 - 10.4 mg/dL ANION GAP 9 3 - 13 mmol/L eGFR 54.3 (L) >60.0 mL/min/1.73m*2 Lab Results Component Value Date TSH 1.414 07/11/2023 Lab Results Component Value Date [id number] 959 (H) 06/19/2021 Lab Results Component Value Date VITD25 37 07/15/2023 Reviewed: allergies, previous encounters, imaging, active problem lists, medications, and labs Images from the original note were not included. OCCUPATIONAL THERAPY [facility] Treatment Note Name/MRN: Yelena Chandra ([id number]) Date of : 1935 Age: 88 y.o. Room[facility]: B4461/[facility] A Visit #: 3 out of 7 visits Discharge Recommendation: Nursing Home Facility Equipment Needed: No (TBD at next level of care) Prior Level of Function ADL Assistance: Independent Ambulation Assistance: Independent Transfer Assistance: Independent Assessment Pt performed tranfers and functional mobility at [facility] with toilet transfer at [place] for controlled descent. Continues sequencing throughout treatment for completion. Toileting tasks at [place] for clothing management unilaterally supported. Grooming at sink unsupported at [facility]. Pt would benefit from continued OT to improve activity tolerance, balance, and strength needed for improved occupational performance. Pt is recommended for SNF at D/C Subjective Pt agreeable to OT treat this date. Per RNlizzie for tx Pain: Pt denies any current pain. Medical Precautions: Droplet Proper PPE donned/doffed in accordance with facility standards. Fall Risk: Velarde Fall Risk Score: 75 (High Risk) Precautions/Restrictions: N/A Family/Caregiver Present: none Objective ADLs Grooming: Contact Guard Toileting: Min Assist Pt performed toileting tasks at [place] for clothing management and backside care with pt standing unilaterally supported with grab bars to doff briefs. Standing at sink unsupported for hygiene tasks at [facility] for balance with no LOB noted. Cuing for sequencing throughout for completion of tasks. Transfers/Mobility Sit to stand: Contact Guard Stand to sit: Contact Guard Toilet: Min Assist Standing balance: Contact Guard Functional mobility: Contact Guard STS from EOB at [facility] for support with cuing for hand placement. Functional mobility to bathroom with FWW at [facility]. Denies dizziness. Toilet transfer with [place] for controlled descent with cuing for positioning and placement of hands for increased support. Device(s) used: front wheeled walker and grab bars Plan Continue acute OT per plan of care. Safety/Education Safety Safety Devices in place: All fall risk precautions in place, call light within reach, left in bed, gait belt, and patient at risk for falls Restraints: No Education Education Given To: patient Education Provided: OT Role, Plan of Care, Transfer Training, Fall Prevention Education, and Benefits of Increasing Activity Education Method: Verbal and Teach Back Barriers to Learning: None Education Outcome: Verbalized Understanding and Continued Education Needed AM-PAC AM-PAC Inpatient Daily Activity Raw Score: 19 ADL Inpatient CMS G-Code Modifier: CK Goals Patient Stated Goal: Encounter Problems Encounter Problems (Active) Dressings Lower Extremities Patient will dress lower body with SUP (Not Addressed) Start: 07/12/23 Expected End: 07/19/23 Mobility Patient will demonstrate functional ambulation with SUP (Slowly Progressing) Start: 07/12/23 Expected End: 07/19/23 Toileting Patient will complete toileting tasks at standard toilet with supervision. (Slowly Progressing) Start: 07/12/23 Expected End: 07/19/23 Transfers Patient will complete functional transfer with rolling walker with supervision in order to prepare for ambulation. (Slowly Progressing) Start: 07/12/23 Expected End: 07/19/23 Therapy Time Individual Co-treatment Time In 0840 Time Out 0904 Minutes 24 Timed Code Treatment Minutes: 24 Minutes (1 ADL, 1 TA) CATHLEEN Ramos Images from the original note were not included. Hospitalist Progress Note 07/17/2023 Subjective: Admit Date: 07/11/2023 PCP: Yenifer Schulz DO Room#: B4-956/B4-645 A Brief Hospital course: Yelena is a 88 y.o. female with past medical history below who presents with chief complaint listed above. She states that she has been feeling weaker and more "unwell" over the past few weeks, has not had an appetite. Denies having any flu like symptoms - no cough, congestion, CP. Does have some SOB - which she states is chronic for her. Currently, lives at home - has had several falls due to weakness - and was not able to walk from the bed to the couch today. Describes general aches and pains. Patient is a vague historian - difficulty to get a history from. Interval History: Seen pt in her room. On contact isolation 06/27 flu A. She denies any CP, N&V, diarrhea, cough, sore throat, rhinorrhea, or malaise. No overnight issues. She is eating and drinking ok. Denies any constipation. She is aware of DC to SNF and was told she will go when she tests negative for the flu. Uncertain how long she will be +. No other issues at present. She declined my offer to call family for updates. Case and plan discussed with patient and bedside nurse. All questions answered. Adult diet Regular 24HR INTAKE/OUTPUT: Intake/Output Summary (Last 24 hours) at 07/17/2023 0602 Last data filed at 07/16/20232044 Gross per 24 hour Intake -- Output 900 ml Net -900 ml Past Medical History: Past Medical History: Diagnosis Date Anxiety Arthritis Hypertension LABS: CBC: Recent Labs 07/16/23 0508 07/17/23 0418 WBC 4.3 3.3* RBC 3.55* 3.79* HGB 9.6* 10.2* HCT 29.3* 30.9* MCV 82.7 81.5 RDW 14.9* 15.4* PLT 391 415 BMP: Recent Labs 07/16/23 0143 07/17/23 0418 NA 131* 135 K 3.6 3.4* CL 109* 106 CO2 18* 20* BUN 15 18* CREATININE 0.83 1.01 GLUCOSE 103* 189* CALCIUM 7.8* 8.2* ANIONGAP 4 9 TSH: 1.414 on 07/11/23 LIVER PROFILE:No results for input(s): "AST", "ALT", "BILITOT", "ALKPHOS", "PROT" in the last 72 hours. No lab exists for component: LABALBU PT/INR: No results for input(s): "PROTIME", "INR" in the last 72 hours. CARDIAC ENZYMES: No results for input(s): "TROPONINI" in the last 72 hours. Procalcitonin: No results found for: "PROCAL" COVID-19 PCR: No results for input(s): "COVID19" in the last 72 hours. Objective: Vitals: BP 112/54 Pulse 78 Temp 36.7 C (98.1 F) (Temporal) Resp 18 Ht 5' 4" (1.626 m) Wt 151 lb (68.5 kg) SpO2 96% BMI 25.92 kg/m Pulse Ox: SpO2 Av.3 % Min: 94 % Max: 96 % Supplemental O2: O2 Flow Rate (L/min): 2 L/min Physical Exam HENT: Head: Normocephalic. Mouth/Throat: Mouth: Mucous membranes are moist. Cardiovascular: Rate and Rhythm: Normal rate. Heart sounds: Normal heart sounds. Comments: Distant heart tones Pulmonary: Effort: Respiratory distress present. Abdominal: General: Bowel sounds are normal. Palpations: Abdomen is soft. Musculoskeletal: General: Swelling (RUE, appears IV infiltrated fluids) present. Normal range of motion. Skin: General: Skin is warm and dry. Capillary Refill: Capillary refill takes less than 2 seconds. Neurological: General: No focal deficit present. Mental Status: She is alert. Psychiatric: Mood and Affect: Mood normal. Behavior: Behavior normal. Medications: amLODIPine, 10 mg, Oral, Daily aspirin, 81 mg, Oral, Daily enoxaparin, 40 mg, SubCUTAneous, Daily hydrALAZINE, 50 mg, Oral, TID ipratropium-albuterol, 3 mL, Nebulization, TID metoprolol tartrate, 100 mg, Oral, BID oseltamivir, 30 mg, Oral, BID pantoprazole, 40 mg, Oral, qAM AC PARoxetine, 10 mg, Oral, q AM polyethylene glycol (PEG) 3350, 17 g, Oral, Daily predniSONE, 40 mg, Oral, Daily [START ON 07/18/2023] sertraline, 25 mg, Oral, Daily [START ON 07/25/2023] sertraline, 50 mg, Oral, Daily CXR 07/16/23 IMPRESSION: Small effusions with associated atelectasis. Pathcy opacity in the right lower lobe may reflect a superimposed infectious/inflammatory process. Prominence of the central vasculature without overt pulmonary edema. Prominence of the superior mediastinum,stable, likely due to enlarged thyroid gland. Report Dictated on Electronically Signed By: Chester Hill MD Electronically Signed Date/Time: 07/16/2023 3:35 PM EST Assessment Data: (CAT1) Reviewed 2 notes from different specialty or health system (each=1). (CAT1) Reviewed 2 labs/studies ordered by another provider not previously counted (each=1, panels count as 1). (LOW: 2x CAT1 or independent historian MOD: 3x CAT1 or 1x CAT3 EXTENSIVE: 3x CAT1 and 1x CAT3) Acute, acute on chronic, unstable/uncontrolled chronic problems/diagnoses: Adult failure to thrive- palliative following, PT/OT rec SNF at discharge , CM involved Depression- patient on Paxil, high risk medication for her age group, geriatrics titrating off Paxil and changing to Zoloft New oxygen requirement- not on oxygen at home, IVF stopped, CXR 07/16: see Influenza A: pt is symptomatic, supportive care Stable chronic problems affecting care, new non-acute diagnoses: HTN- continue amlodipine and hydralazine GERD- PPI Plan As a result of the above findings & factors, the following mgmt was pursued: - am labs, replace lytes prn - PT/OT/CM/SW - delirium precautions: increase activity and limit nighttime disturbances - DVT prophylaxis: enoxaparin and encourage ambulation Complexity: Multiple stable chronic illnesses (MOD). Risk: Care and management is being impacted by the following SDOH: Chronic co-morbid conditions and newly diagnosis of Influenzae A (MOD). Advance Directive: DNR-CCA Anticipated Discharge - Date - TBD - Location - Skilled Facility - Pending the following - stabilization of current status Total time spent (which include face to face and non face to face encounters) : 45 minutes Toxic drug monitoring/narrow therapeutic index drug monitoring : # Drug name : # Route administered : # Method of monitoring : Extended Emergency Contact Information Primary Emergency Contact: Julianne Bravo Mobile Relation: Sister Preferred language: [employer] Assistant needed? No GENEVA MCCORD CNP Division of Hospitalist Medicine Acute care [facility] Comment: Please note this report has been produced using speech recognition software and may contain errors related to that system including errors in grammar, punctuation, and spelling, as well as words and phrases that may be inappropriate. If there is any questions or concerns please feel free to contact the dictating provider for clarification Images from the original note were not included. OCCUPATIONAL THERAPY [facility] Treatment Note Name/MRN: Yelena Chandra ([id number]) Date of : 1935 Age: 88 y.o. Room[facility]Bed: [facility] A Visit #: 2 out of 7 visits Discharge Recommendation: Nursing Home Facility Equipment Needed: No (TBD at next level of care) Prior Level of Function ADL Assistance: Independent Ambulation Assistance: Independent Transfer Assistance: Independent Assessment Pt tolerated session fairly well, motivated to work with therapy. Pt completed bed mobility, STS, functional mobility, toilet transfer, and seated grooming with Min A. Pt is progressing with POC but is still below baseline and is a high fall risk. Pt would benefit from continued OT to improve activity tolerance, balance, and strength needed for improved occupational performance. Pt is recommended for SNF at D/C Subjective Pt supine in bed, agreeable to OT tx. Per RN, pt okay to see Pain: Pt denies any current pain. Medical Precautions: No active isolations Proper PPE donned/doffed in accordance with facility standards. Fall Risk: Velarde Fall Risk Score: 75 (High Risk) Precautions/Restrictions: N/A Family/Caregiver Present: none Objective ADLs Grooming: Min Assist Pt completed seated grooming at EOB with set up and Min A. Pt required assist to open all containers, and to sequence completion of task. Bed Mobility Supine to sit: Min Assist Sit to supine: Min Assist Scooting: SBA Pt completed supine to/from sit with HOB elevated, use of bed rails, and Min A. Pt able to scoot to EOB with SBA Transfers/Mobility Sit to stand: Min Assist Stand to sit: Min Assist, Pt completed STS from EOB with FWW and Min A. Pt required VC for proper BUE placement, fair carryover. Pt denied dizziness Toilet: Min Assist, Pt completed bathroom level toilet transfer with use of R grab bar and Min A. Pt required increased time to rise Sitting balance: SBA Standing balance: Min Assist Functional mobility: Min Assist Pt completed short functional mobility with FWW and Min A. Pt required increased time and assist to manage FWW. Pt completed functional mobility to/from bathroom with FWW front wheeled walker, hospital bed, grab bars, and oxygen Device(s) used: Cognition - Following commands: follows one step commands consistently and follows one step commands with increased time WFL Plan Continue acute OT per plan of care. Safety/Education Safety Safety Devices in place: All fall risk precautions in place, call light within reach, left in bed, gait belt, patient at risk for falls, nurse notified, and no alarms engaged upon entry Restraints: No Education Education Given To: patient Education Provided: OT Role, Plan of Care, Precautions, ADL Adaptive Strategies, Transfer Training, Equipment, and Discharge Recommendations Education Method: Verbal, Demonstration, and Teach Back Barriers to Learning: None Education Outcome: Verbalized Understanding, Demonstrated Understanding, and Continued Education Needed AM-PAC AM-PAC Inpatient Daily Activity Raw Score: 19 ADL Inpatient CMS G-Code Modifier: CK Goals Patient Stated Goal: Encounter Problems Encounter Problems (Active) Dressings Lower Extremities Patient will dress lower body with SUP (Not Addressed) Start: 07/12/23 Expected End: 07/19/23 Mobility Patient will demonstrate functional ambulation with SUP (Progressing) Start: 07/12/23 Expected End: 07/19/23 Toileting Patient will complete toileting tasks at standard toilet with supervision. (Not Addressed) Start: 07/12/23 Expected End: 07/19/23 Transfers Patient will complete functional transfer with rolling walker with supervision in order to prepare for ambulation. (Progressing) Start: 07/12/23 Expected End: 07/19/23 Therapy Time Individual Co-treatment Time In 1309 Time Out 1335 Minutes 26 Timed Code Treatment Minutes: 26 Minutes (1 Ther Act, 1 ADL) FIFI [facility] Geriatric Medicine Inpatient Consult Service Admission Date: 07/11/2023 Assessment Principal Problem: Decreased activities of daily living (ADL) Active Problems: Moderate malnutrition (CMS/HCC) (HCC) Plan Fall Debility -Multiple risk factors including decrease PO intake, weakness, cognitive deficits, and possible medication side effect -per sisterJulianne-patient had one fall about a year ago, fell off the toilet and then prior to this ED visit, patient was too weak to ambulate and had to sit down on the floor -Continue PT/OT as able while inpatient. PT today - transferring with min assist. Recommend SNF. -Anticipate discharge to SNF -Vitamin D level normal at 37 -Check orthostatic vital signs as able -Medications with associated fall risk include: Paxil Cognitive deficits: -confused on date - March 2005. Could not find oxygen in nose initially. -MMSE 07/14 24/30 -patient's sister has noted patient has had short term memory loss recently -Clock Drawing Test 07/14: Total Score 3/7 -recommend follow up with [facility] in 4 weeks post discharge to home for further cognitive testing At risk for delirium --Risk factors: advanced age, sensory impairments, acute illness, high risk medications, and baseline cognitive deficits --now requiring oxygen 2L and noted with cough and wheezing. CXR pending and recommend respiratory panel. --Encourage PO intake, time up in chair, family visits, supervised ambulation, and sleep hygiene --If agitated, assess for and consider treating for pain --QTc= 505 --No antipsychotic unless patient is danger to self/others/treatment QTC >500 --Start PRN melatonin at HS --Monitor for constipation/urinary retention - last BM 07/14 - small ; incontinent of urine. --Possible medication contributions: none identified Depression/anxiety: -per family has been on Paxil for many years -cont to wean Paxil due to anticholinergic side effects and start Zoloft -started 07/15 to decrease Paxil from 20 to 10mg daily times 3 days, then stop and start Zoloft 25mg daily times 7 days, then increase to Zoloft 50mg daily -monitor patient closely for signs and symptoms of withdrawal from Paxil during wean. Patient with confusion however may be also related to possible acute respiratory illness. Monitor. -patient reports mood is good -previous conversation with pt's sister, she denies patient being anxious at home, but more depressive symptoms-not wanting to get out of bed and decrease PO intake since patient's dog 4-5 months ago Malnutrition -seen by speech therapy 07/13, okay for regular diet, thin liquids -per sister, appetite has been poor for the past 4-5 months -per EPIC review, patient has had approximately 38 pound weight loss in past 11 months -encourage PO intake -slab worker following, supplements started -palliative care following Constipation -BM small 07/14, prior to that 07/11 documented. -schedule Miralax daily Follow-up: will follow with you Subjective Chief Complaint: cough Geriatrics consulted for Faillure to Thrive HPI- The patient is new to me but seen by the Geriatric Inpatient Consult team. 88 y.o. year-old female admitted to acute care from home with pmhx of depression/anxiety, HTN, GERD presented [facility] ED on 07/11/23 after c/o feeling weaker and more "unwell" over the past few weeks, has not had an appetite. Currently, lives at home - has had several falls due to weakness - and was not able to walk from the bed to the couch. Interval History: Remains on general medical/surgical floor . -Patient knows she is at [facility], states month is March. Does not remember if she ate lunch. Was not able to find the oxygen in her nose initially. -placed on oxygen last night - 2 L. CXR ordered. Seen by PT 07/14. Min assist for transfers. Ambulated 75 feet x 1 CGA with FWW. Recommending short term SNF for rehab. Review of Systems HENT: Positive for congestion. Respiratory: Positive for cough. Negative for shortness of breath. Psychiatric/Behavioral: Positive for confusion. Objective BP 126/71 (BP Location: Left arm, Patient Position: Sitting) Pulse 72 Temp 36 C (96.8 F) (Temporal) Resp 16 Ht 5' 4" (1.626 m) Wt 151 lb (68.5 kg) SpO2 94% BMI 25.92 kg/m No intake or output data in the 24 hours ending 07/16/23 1252 Wt Readings from Last 3 Encounters: 07/14/23 151 lb (68.5 kg) 08/01/22 183 lb (83 kg) Current Facility-Administered Medications: acetaminophen (Tylenol) tablet 650 mg, 650 mg, Oral, q6h PRN, 650 mg at 07/13/23 0944 OR acetaminophen (Tylenol) suppository 650 mg, 650 mg, Rectal, q6h PRN, Nicole Lombardi MD amLODIPine (Norvasc) tablet 10 mg, 10 mg, Oral, Daily, Nicole Lombardi MD, 10 mg at 07/16/23 0907 aspirin EC tablet 81 mg, 81 mg, Oral, Daily, Nicole Lombardi MD, 81 mg at 07/16/23 09 enoxaparin (Lovenox) syringe 40 mg, 40 mg, SubCUTAneous, Daily, Nicole Lombardi MD, 40 mg at 07/16/23 09 hydrALAZINE (Apresoline) tablet 50 mg, 50 mg, Oral, TID, Nicole Lombardi MD, 50 mg at 07/16/23 0905 metoprolol tartrate (Lopressor) tablet 100 mg, 100 mg, Oral, BID, Nicole Lombardi MD, 100 mg at 07/16/23 0906 ondansetron ODT (Zofran-ODT) disintegrating tablet 4 mg, 4 mg, Oral, q8h PRN OR ondansetron (Zofran) injection 4 mg, 4 mg, IntraVENous, q6h PRN, Nicole Lombardi MD pantoprazole (ProtoNix) EC tablet 40 mg, 40 mg, Oral, qAM AC, Nicole Lombardi MD, 40 mg at 07/16/23 0502 PARoxetine (Paxil) tablet 10 mg, 10 mg, Oral, q AM, GENEVA Garcia CNP, 10 mg at 07/16/23 0905 polyethylene glycol (PEG) 3350 (Miralax) packet 17 g, 17 g, Oral, Daily PRN, Nicole Lombardi MD [START ON 07/18/2023] sertraline (Zoloft) tablet 25 mg, 25 mg, Oral, Daily, GENEVA Garcia CNP [START ON 07/25/2023] sertraline (Zoloft) tablet 50 mg, 50 mg, Oral, Daily, GENEVA Garcia CNP Physical Exam Cardiovascular: Rate and Rhythm: Normal rate and regular rhythm. Pulmonary: Effort: Pulmonary effort is normal. No respiratory distress. Breath sounds: Wheezing present. Comments: Cough noted Abdominal: General: Bowel sounds are normal. There is no distension. Palpations: Abdomen is soft. Tenderness: There is no abdominal tenderness. Musculoskeletal: Right lower leg: No edema. Left lower leg: No edema. Skin: General: Skin is warm and dry. Neurological: Mental Status: She is alert. She is disoriented. Cranial Nerves: No cranial nerve deficit. Comments: Oriented to self, place, not date. States month is March and year is 2004. Psychiatric: Mood and Affect: Mood normal. Labs and Imaging: Recent Results (from the past 24 hour(s)) Basic metabolic panel Collection Time: 07/16/23 1:43 AM Result Value Ref Range SODIUM 131 (L) 135 - 145 mmol/L POTASSIUM 3.6 3.5 - 5.1 mmol/L CHLORIDE 109 (H) 98 - 107 mmol/L CARBON DIOXIDE 18 (L) 22 - 30 mmol/L UREA NITROGEN 15 7 - 17 mg/dL CREATININE 0.83 0.52 - 1.04 mg/dL GLUCOSE 103 (H) 70 - 100 mg/dL CALCIUM 7.8 (L) 8.4 - 10.4 mg/dL ANION GAP 4 3 - 13 mmol/L eGFR 68.8 >60.0 mL/min/1.73m*2 CBC Collection Time: 07/16/23 5:08 AM Result Value Ref Range Auto WBC 4.3 3.6 - 10.7 10*3/uL RBC 3.55 (L) 3.8 - 5.20 10*6/uL Hemoglobin 9.6 (L) 11.7 - 16.0 g/dL Hematocrit 29.3 (L) 35.0 - 47.0 % MCV 82.7 80.0 - 98.0 fL MCH 27.1 26.0 - 34.0 pg MCHC 32.8 32.0 - 36.0 % RDW 14.9 (H) 11.5 - 14.5 % Platelets 391 140 - 440 10*3/uL MPV 7.5 7.4 - 12.4 fL Lab Results Component Value Date TSH 1.414 07/11/2023 Lab Results Component Value Date [id number] 959 (H) 06/19/2021 Lab Results Component Value Date VITD25 37 07/15/2023 Reviewed: allergies, previous encounters, social history, imaging, active problem lists, medications, and labs Images from the original note were not included. PHYSICAL THERAPY [facility] Treatment Note Name/MRN: Yelena Chandra ([id number]) Date of : 1935 Age: 88 y.o. Room/Bed: B4454/B4454 B Visit #: 2 out of 5 visits Discharge Recommendation: Nursing Home Facility Equipment Needed: No Prior Level of Function ADL Assistance: Independent Ambulation Assistance: Independent Transfer Assistance: Independent Assessment Pt is making slow progress toward PT goals. Pt completed bed mobility with Ezekiel, transfers with Ezekiel, and side stepping with FWW with CGA. Increased recovery time required between tasks d/t fatigue. Pt was instructed in proper breathing techniques. Pt is limited by decreased strength and decreased endurance. Pt will benefit from continued skilled PT to address current deficits. Recommend SNF. Subjective Patient pleasant and agreeable to therapy. Pt states that she is "sleepy". Observation: O2 intact, purewick Pain: Pt denies any current pain. Medical Precautions: No active isolations Proper PPE donned/doffed in accordance with facility standards. Fall Risk: Velarde Fall Risk Score: 75 (High Risk) Precautions/Restrictions: N/A Overall Cognitive Status: Exceptions - Safety judgement: decreased awareness of need for assistance and decreased awareness of need for safety - Problem solving: assistance required to generate solutions, assistance required to implement solutions, assistance required to identify errors made, assistance required to correct errors made, and decreased awareness of errors - Sequencing: requires cues for some Family/Caregiver Present: none Objective Transfers/Mobility Sit to stand: Min Assist Stand to sit: Min Assist From EOB to FWW x2 trials. Ezekiel required to elevate to stand and to control movement when sitting. Verbal cues required for proper hand placement and for slow descent when returning to sit. Continued edu warranted to improve recall of proper technique. Device(s) used: front wheeled walker Exercises Exercises Quad Sets: 1 set / 10 reps B LE in supine Heelslides: 1 set / 10 reps B LE in supine Hip Flexion: 1 set / 10 reps B LE in sitting Hip Adduction: 1 set / 10 reps B LE in sitting with pillow resistance Knee Long Arc Quad: 1 set / 10 reps B LE in sitting Ankle Pumps: 1 set / 10 reps B LE in supine Comments: Pt was instructed in supine and seated B LE exercises to improve muscle strength and stability during ambulation. Verbal cues for proper ROM and for completion of exercise sets. Pt denied pain with exercise. Bed Mobility Supine to sit: Min Assist Sit to supine: Min Assist HOB slightly elevated and use of bed rail. Pt required cues for proper LE sequencing and hand placement to improve ease with bed mobility tasks. Ezekiel required to guide LE's in/out of bed. Pt denied dizziness with positional changes. Plan Continue acute PT per plan of care. Safety/Education Safety Safety Devices in place: All fall risk precautions in place, call light within reach, left in bed, bed alarm in place, gait belt, and patient at risk for falls Restraints: No Education Education Given To: patient Education Provided: PT Role, PT Goals, Plan of Care, Home Exercise Program, Transfer Training, and Breathing Techniques Education Method: Verbal Barriers to Learning: Cognition Education Outcome: Verbalized Understanding and Continued Education Needed Outcome Measures AM-PAC AM-PAC Inpatient Mobility Raw Score (No Stairs) : 15 Goals Patient Stated Goal: To get stronger and decrease falls. Encounter Problems Encounter Problems (Active) Balance Patient will maintain dynamic standing balance for 5 minutes with SBA in order to demonstrate decreased risk of falling. (Progressing) Start: 07/12/23 Expected End: 07/17/23 Exercise Patient will complete lower extremity exercises for 1-2 sets / 5-10 reps in order to improve strength and activity tolerance for mobility. (Progressing) Start: 07/12/23 Expected End: 07/17/23 Mobility Patient will ambulate 75 feet with SBA and rolling walker in order to improve safety and independence with mobility. (Not Addressed) Start: 07/12/23 Expected End: 07/17/23 Transfers Patient will perform bed mobility with modified independence in order to improve independence and prepare for out of bed mobility. (Progressing) Start: 07/12/23 Expected End: 07/17/23 Patient will complete functional transfer with rolling walker with SBA in order to prepare for ambulation. (Progressing) Start: 07/12/23 Expected End: 07/17/23 Therapy Time Individual Co-treatment Time In 1029 Time Out 1052 Minutes 23 Timed Code Treatment Minutes: 23 Minutes (x1 ther ex, x1 ther act) Mylene Greene PTA Images from the original note were not included. Palliative Care Progress Note Chief Complaint: Yelena Chandra is a 88 y.o. female with chief complaint of failure to thrive Palliative care consulted for goals of care Palliative Care is actively following. Assessment/Plan Goals of care - patient's NOK is sister Julianne and brother who lives in [place] - patient confused today, HCPOA could not be signed - Code status remains DNRCCA - patient planned for discharge to [facility] when medically stable Depression - patient was on paxil - appreciate geriatrics team weaning Paxil due to anticholinergic side effects and starting Zoloft -per Geriatics notes zoloft started 07/15 to decrease Paxil from 20 to 10mg daily times 3 days, then stop and start Zoloft 25mg daily times 7 days, then increase to Zoloft 50mg daily Failure to thrive - patient agreeable to go to SNF for therapy Total of 55 minutes spent on this encounter including Chart review, Patient visit and exam, Documentation in EHR, Care coordination, and Communicating with primary attending or other consultants. Discharge planning: Not ready for discharge due to ongoing goals of care discussion Patient meets criteria for general inpatient hospice care including the following: N/A - Palliative Care Patient Referrals to: None Discussed patient and the plan of care with the other interdisciplinary team (IDT) members of Palliative Care Team, and with Primary Attending, Patient, and Family Subjective: Subjective/Events Yelena Chandra is a 88 y.o. female admitted to [facility] on 07/11/23 for failure to thrive. Patient seen and examined this morning. Patient stated that she is feeling better. Patient denied any complains. Per staff patient confused today. Goals of care:Support for Family/Caregiver and Continue Current management Advance Directives: Full Code Surrogate: Extended Family Prognosis: unknown Spiritual assessment: No spiritual distress identified Bereavement and grief: Grief Issues Not Identified Review of Systems ROS: See palliative care ROS/ESAS below; All other systems were reviewed and are negative. Dawson Symptom Assessment Score Dawson Score Pain Score 0 Tiredness Score 4 Nausea Score 0 Depression Score 0 Anxiety Score 0 Drowsiness Score 0 Anorexia Score (0= eating well, 10= not eating) 4 Wellbeing Score (10= worst sense of well-being) 4 Constipation 0 Dyspnea Score (0= no shortness of breath) 0 FLACC Scale (For Pain Assessment of the Non-Verbal Patient) Patient verbal Assessed by: provider. 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 HENT: Head: Normocephalic and atraumatic. Right Ear: External ear normal. Left Ear: External ear normal. Nose: Nose normal. Mouth/Throat: Mouth: Mucous membranes are moist. Eyes: General: No scleral icterus. Right eye: No discharge. Left eye: No discharge. Pupils: Pupils are equal, round, and reactive to light. Cardiovascular: Rate and Rhythm: Normal rate and regular rhythm. Pulses: Normal pulses. Heart sounds: Normal heart sounds. No murmur heard. Pulmonary: Effort: Pulmonary effort is normal. Breath sounds: Normal breath sounds. No stridor. No wheezing. Abdominal: General: Abdomen is flat. Bowel sounds are normal. Palpations: Abdomen is soft. Musculoskeletal: General: No swelling. Cervical back: Neck supple. Right lower leg: No edema. Left lower leg: No edema. Skin: General: Skin is warm. Coloration: Skin is not jaundiced. Neurological: Mental Status: She is alert and oriented to person, place, and time. Motor: Weakness present. Psychiatric: Mood and Affect: Mood normal. Current Medications: Inpatient medications reviewed: yes Home medications reviewed: yes OARRS Reviewed: No Report Available 24 Hour PRN Meds: none Results/Verification of Data Review Objective data reviewed (be specific which labs, imaging reports with dates reviewed): - labs, imaging, MAR reviewed 07/16/23 Data in Support of Terminal Illness: Is patient hospice appropriate? TBD Images from the original note were not included. OCCUPATIONAL THERAPY [facility] Name/MRN: Yelena Chandra ([id number]) Date: 07/16/2023 Pt chart reviewed, okay to see per RN. Pt currently working with PT,unavailable for OT Tx. Will reattempt as schedule permits FIFI Ye Images from the original note were not included. Hospitalist Progress Note 07/16/2023 Subjective: Admit Date: 07/11/2023 PCP: Yenifer Schulz DO Room#: B4-454/B4-454 B Brief Hospital course: Yelena is a 88 y.o. female with past medical history below who presents with chief complaint listed above. She states that she has been feeling weaker and more "unwell" over the past few weeks, has not had an appetite. Denies having any flu like symptoms - no cough, congestion, CP. Does have some SOB - which she states is chronic for her. Currently, lives at home - has had several falls due to weakness - and was not able to walk from the bed to the couch today. Describes general aches and pains. Patient is a vague historian - difficulty to get a history from. Interval History: No overnight issues. She is working with PT. She is pleasant today and oriented. She has no complaints and denies shortness of breath but she is now on oxygen. Case and plan discussed with patient and bedside nurse. All questions answered. Adult diet Regular 24HR INTAKE/OUTPUT: No intake or output data in the 24 hours ending 07/16/23 0943 Past Medical History: Past Medical History: Diagnosis Date Anxiety Arthritis Hypertension LABS: CBC: Recent Labs 07/14/23 0311 07/16/23 0508 WBC 6.7 4.3 RBC 3.78* 3.55* HGB 10.3* 9.6* HCT 31.0* 29.3* MCV 82.0 82.7 RDW 14.6* 14.9* PLT 463* 391 BMP: Recent Labs 07/14/23 0311 07/16/23 0143 NA 135 131* K 3.7 3.6 CL 109* 109* CO2 21* 18* BUN 17 15 CREATININE 0.88 0.83 GLUCOSE 112* 103* CALCIUM 8.0* 7.8* ANIONGAP 5 4 LIVER PROFILE:No results for input(s): "AST", "ALT", "BILITOT", "ALKPHOS", "PROT" in the last 72 hours. No lab exists for component: LABALBU PT/INR: No results for input(s): "PROTIME", "INR" in the last 72 hours. CARDIAC ENZYMES: No results for input(s): "TROPONINI" in the last 72 hours. Procalcitonin: No results found for: "PROCAL" COVID-19 PCR: No results for input(s): "COVID19" in the last 72 hours. Objective: Vitals: BP 126/71 (BP Location: Left arm, Patient Position: Sitting) Pulse 72 Temp 36 C (96.8 F) (Temporal) Resp 16 Ht 5' 4" (1.626 m) Wt 151 lb (68.5 kg) SpO2 94% BMI 25.92 kg/m Pulse Ox: SpO2 Av.5 % Min: 93 % Max: 94 % Supplemental O2: O2 Flow Rate (L/min): 2 L/min Physical Exam Vitals and nursing note reviewed. Constitutional: Appearance: Normal appearance. HENT: Head: Normocephalic and atraumatic. Nose: Nose normal. Mouth/Throat: Mouth: Mucous membranes are dry. Eyes: Pupils: Pupils are equal, round, and reactive to light. Cardiovascular: Rate and Rhythm: Normal rate and regular rhythm. Pulmonary: Effort: Pulmonary effort is normal. Breath sounds: Normal breath sounds. Abdominal: General: Bowel sounds are normal. Palpations: Abdomen is soft. Musculoskeletal: General: Normal range of motion. Cervical back: Normal range of motion. Skin: General: Skin is warm and dry. Neurological: General: No focal deficit present. Mental Status: She is alert and oriented to person, place, and time. Mental status is at baseline. Psychiatric: Mood and Affect: Mood normal. Behavior: Behavior normal. Medications: amLODIPine, 10 mg, Oral, Daily aspirin, 81 mg, Oral, Daily enoxaparin, 40 mg, SubCUTAneous, Daily hydrALAZINE, 50 mg, Oral, TID metoprolol tartrate, 100 mg, Oral, BID pantoprazole, 40 mg, Oral, qAM AC PARoxetine, 10 mg, Oral, q AM [START ON 07/18/2023] sertraline, 25 mg, Oral, Daily [START ON 07/25/2023] sertraline, 50 mg, Oral, Daily Assessment Data: (CAT1) Reviewed 1 notes from different specialty or health system (each=1). (CAT1) Ordered 2 new labs and/or studies (each=1, panels count as 1). (LOW: 2x CAT1 or independent historian MOD: 3x CAT1 or 1x CAT3 EXTENSIVE: 3x CAT1 and 1x CAT3) Acute, acute on chronic, unstable/uncontrolled chronic problems/diagnoses: Adult failure to thrive- palliative following, PT/OT rec SNF at discharge , CM involved Depression- patient on Paxil, high risk medication for her age group, geriatrics titrating off Paxil and changing to Zoloft New oxygen requirement- not on oxygen at home, IVF stopped, chest xr pending Stable chronic problems affecting care, new non-acute diagnoses: HTN- continue amlodipine and hydralazine GERD- PPI Plan As a result of the above findings & factors, the following mgmt was pursued: - - am labs, replace lytes prn - PT/OT/CM/SW - delirium precautions: increase activity and limit nighttime disturbances - DVT prophylaxis: enoxaparin and encourage ambulation Complexity: Acute, uncomplicated illness or injury (LOW). Risk: Prescription drug/IVF/colloid was initiated, discontinued, adjusted; or reviewed with decision to maintain current orders (MOD). Low risk diagnostic testing or treatment (LOW). Advance Directive: DNR-CCA Anticipated Discharge - Date - 07/17 - Location - Skilled Facility - Pending the following - insurance auth Total time spent (which include face to face and non face to face encounters) : minutes Toxic drug monitoring/narrow therapeutic index drug monitoring : # Drug name : # Route administered : # Method of monitoring : Extended Emergency Contact Information Primary Emergency Contact: Julianne Bravo Mobile Relation: Sister Preferred language: [place] [employer] Assistant needed? No GENEVA ARBOELDA CNP Division of Hospitalist Medicine [facility] Geriatric Medicine Inpatient Consult Service Admission Date: 07/11/2023 Assessment Principal Problem: Decreased activities of daily living (ADL) Active Problems: Moderate malnutrition (CMS/HCC) (HCC) Plan Fall -Multiple risk factors including decrease PO intake, weakness, cognitive deficits, and possible medication side effect -per sisterJulianne-patient had one fall about a year ago, fell off the toilet and then prior to this ED visit, patient was too weak to ambulate and had to sit down on the floor -Continue PT/OT as able while inpatient -Vitamin D level normal at 37 -Check orthostatic vital signs as able -Medications with associated fall risk include: Paxil -cont PT/OT Cognitive deficits: -slightly confused today, did not remember the year, knows why she is at the hospital and knows her discharge plan to SNF -MMSE yesterday -patient's sister has noted patient has had short term memory loss recently -Clock Drawing Test 07/14: Correct Elements (1 pt each): Numbers 1-12 only included, Numbers are drawn inside the clock resighini, and hour hand points to correct number Total Score 7 Time Instructions: Two thirty-five Scores < 5 out of 7 correlate with significantly more driving errors J Gen Senior [employer] Med 2005; 20:[id number] -recommend follow up with [facility] in 4 weeks post discharge to home for further cognitive testing Depression/anxiety: -per family has been on Paxil for many years -cont to wean Paxil due to anticholinergic effects and start Zoloft -started today to decrease Paxil from 20 to 10mg daily times 3 days, then stop and start Zoloft 25mg daily times 7 days, then increase to Zoloft 50mg daily -monitor patient closely for signs and symptoms of withdrawal from Paxil during wean -patient denies any feeling of sad/depressed/anxious/stressed today during exam -previous conversation with pt's sister, she denies patient being anxious at home, but more depressive symptoms-not wanting to get out of bed and decrease PO intake since patient's dog 4-5 months ago Decrease PO intake: -seen by speech therapy, okay for regular diet, thin liquids -pt reports her appetite is good, eating lunch at time of exam -per sister, appetite has been poor for the past 4-5 months -per EPIC review, patient has had approximately 38 pound weight loss in past 11 months -encourage PO intake -slab worker following, supplements started Declining functional status --Related to debility, decrease PO intake, depression/anxiety --Continue PT/OT as able while inpatient --Anticipate d/c to SNF for ongoing daily PT/OT, patient case manager following -discussed the expectations of SNF with patient at bedside today OK to discharge to from geriatric perspective once primary service. Follow-up: will follow with you Subjective Chief Complaint: "not normal" Geriatrics consulted for Faillure to Thrive HPI- The patient is known to me. 88 y.o. year-old female admitted to acute care from home with pmhx of depression/anxiety, HTN, GERD presented [facility] ED on 07/11/23 after c/o feeling weaker and more "unwell" over the past few weeks, has not had an appetite. Currently, lives at home - has had several falls due to weakness - and was not able to walk from the bed to the couch today. Interval History: Remains on medical surgical floor Labs: 07/14: sodium 135, potassium 3.7, BUN 17, Creatinine 0.88 07/14: WBC 6.7, Hgb 10.3, Platelet 463 07/15: Vitamin D level 37 Review progress notes from yesterday: -palliative care following, code status changed to DNR-CCA -valuation manager working with patient, family and facilities for patient to go to SNF Seen by PT 07/14-transfers min assist, ambulating 75 feet times 1 FWW CGA. Recommending short term SNF for rehab. Patient today reports she slept well last night. She reports she was tired after working with therapy yesterday. States her appetite is improving, eating lunch at time of exam. She is aware that she will be going to SNF for therapy once she leaves the hospital and is agreeable. Discussed with patient's nurse, no confusion, agitation or disruptive behaviors noted with patient. Review of Systems Constitutional: Positive for activity change. HENT: Negative for postnasal drip. Respiratory: Positive for cough (intermittent) and shortness of breath (chronic). Cardiovascular: Negative for chest pain and palpitations. Gastrointestinal: Negative for abdominal distention, abdominal pain, constipation (last BM 07/14) and diarrhea. Genitourinary: Negative for difficulty urinating and dysuria. Musculoskeletal: Positive for gait problem. Neurological: Negative for dizziness, light-headedness and headaches. Psychiatric/Behavioral: Positive for confusion. Negative for dysphoric mood. The patient is not nervous/anxious. Objective BP 108/61 Pulse 81 Temp 36.9 C (98.5 F) (Temporal) Resp 20 Ht 5' 4" (1.626 m) Wt 151 lb (68.5 kg) SpO2 93% BMI 25.92 kg/m No intake or output data in the 24 hours ending 07/15/23 1435 Wt Readings from Last 3 Encounters: 07/14/23 151 lb (68.5 kg) 08/01/22 183 lb (83 kg) Current Facility-Administered Medications: acetaminophen (Tylenol) tablet 650 mg, 650 mg, Oral, q6h PRN, 650 mg at 07/13/23 0944 OR acetaminophen (Tylenol) suppository 650 mg, 650 mg, Rectal, q6h PRN, Nicole Lombardi MD amLODIPine (Norvasc) tablet 10 mg, 10 mg, Oral, Daily, Nicole Lombardi MD, 10 mg at 07/15/23 0818 aspirin EC tablet 81 mg, 81 mg, Oral, Daily, Nicole Lombardi MD, 81 mg at 07/15/23 0818 enoxaparin (Lovenox) syringe 40 mg, 40 mg, SubCUTAneous, Daily, Nicole Lombardi MD, 40 mg at 07/15/23 0818 hydrALAZINE (Apresoline) tablet 50 mg, 50 mg, Oral, TID, Nicole Lombardi MD, 50 mg at 07/15/23 1406 metoprolol tartrate (Lopressor) tablet 100 mg, 100 mg, Oral, BID, Nicole Lombardi MD, 100 mg at 07/15/23 0818 ondansetron ODT (Zofran-ODT) disintegrating tablet 4 mg, 4 mg, Oral, q8h PRN OR ondansetron (Zofran) injection 4 mg, 4 mg, IntraVENous, q6h PRN, Nicole Lombardi MD pantoprazole (ProtoNix) EC tablet 40 mg, 40 mg, Oral, qAM AC, Nicole Lombardi MD, 40 mg at 07/15/23 0520 PARoxetine (Paxil) tablet 10 mg, 10 mg, Oral, q AM, GENEVA Garcia CNP, 10 mg at 07/15/23 0819 polyethylene glycol (PEG) 3350 (Miralax) packet 17 g, 17 g, Oral, Daily PRN, Nicole Lombardi MD [START ON 07/18/2023] sertraline (Zoloft) tablet 25 mg, 25 mg, Oral, Daily, GENEVA Garcia CNP [START ON 07/25/2023] sertraline (Zoloft) tablet 50 mg, 50 mg, Oral, Daily, GENEVA Garcia CNP sodium chloride 0.9 % infusion, 100 mL/hr, IntraVENous, Continuous, Nicole Lombardi MD, Last Rate: 100 mL/hr at 07/15/23 0519, 100 mL/hr at 07/15/23 0519 Physical Exam Constitutional: General: She is not in acute distress. Appearance: She is not ill-appearing or toxic-appearing. Comments: Pleasant female sitting up in bed,eating lunch, on RA, NAD HENT: Right Ear: External ear normal. Left Ear: External ear normal. Nose: Nose normal. No congestion. Mouth/Throat: Mouth: Mucous membranes are moist. Pharynx: Oropharynx is clear. Eyes: General: Right eye: No discharge. Left eye: No discharge. Conjunctiva/sclera: Conjunctivae normal. Neck: Comments: Left parotid hard area, non mobile, non tender-chronic per patient Cardiovascular: Rate and Rhythm: Normal rate and regular rhythm. Pulmonary: Effort: Pulmonary effort is normal. No respiratory distress. Breath sounds: No wheezing, rhonchi or rales. Abdominal: General: Bowel sounds are normal. There is no distension. Palpations: Abdomen is soft. Tenderness: There is no abdominal tenderness. There is no guarding. Musculoskeletal: General: Normal range of motion. Right lower leg: No edema. Left lower leg: No edema. Skin: General: Skin is warm and dry. Neurological: Mental Status: She is alert and oriented to person, place, and time. Comments: Alert and oriented to person, place, thinks the year is 2024 Psychiatric: Mood and Affect: Mood normal. Behavior: Behavior normal. Labs and Imaging: Recent Results (from the past 24 hour(s)) Vitamin D Deficiency Screening (Vit D 25) Collection Time: 07/15/23 2:03 AM Result Value Ref Range VIT D 25-OH, TOTAL 37 30 - 100 ng/mL Lab Results Component Value Date TSH 1.414 07/11/2023 Lab Results Component Value Date [id number] 959 (H) 06/19/2021 Lab Results Component Value Date VITD25 37 07/15/2023 Reviewed: allergies, previous encounters, medications, and labs Images from the original note were not included. Hospitalist Progress Note 07/15/2023 Subjective: Admit Date: 07/11/2023 PCP: Yenifer Schulz DO Room#: P6-476/R3-794 B Brief Hospital course: Yelena is a 88 y.o. female with past medical history below who presents with chief complaint listed above. She states that she has been feeling weaker and more "unwell" over the past few weeks, has not had an appetite. Denies having any flu like symptoms - no cough, congestion, CP. Does have some SOB - which she states is chronic for her. Currently, lives at home - has had several falls due to weakness - and was not able to walk from the bed to the couch today. Describes general aches and pains. Patient is a vague historian - difficulty to get a history from. Interval History: Notified that patient's oxygen stats fell to 85% and went back to normal. Will continue to monitor oxygen level. She is resting comfortably in bed. She does sleep often. Plan for SNF at discharge. Case and plan discussed with patient and bedside nurse. All questions answered. Adult diet Regular 24HR INTAKE/OUTPUT: Intake/Output Summary (Last 24 hours) at 07/15/2023 0909 Last data filed at 07/14/2023 1412 Gross per 24 hour Intake 350 ml Output -- Net 350 ml Past Medical History: Past Medical History: Diagnosis Date Anxiety Arthritis Hypertension LABS: CBC: Recent Labs 07/13/2332607/14/23310 WBC 8.1 6.7 RBC 3.79* 3.78* HGB 10.5* 10.3* HCT 30.8* 31.0* MCV 81.3 82.0 RDW 15.0* 14.6* PLT 463* 463* BMP: Recent Labs 07/13/2332607/14/23310 NA 134* 135 K 4.3 3.7 CL 108* 109* CO2 21* 21* BUN 19* 17 CREATININE 1.03 0.88 GLUCOSE 140* 112* CALCIUM 8.1* 8.0* ANIONGAP 4 5 LIVER PROFILE:No results for input(s): "AST", "ALT", "BILITOT", "ALKPHOS", "PROT" in the last 72 hours. No lab exists for component: LABALBU PT/INR: No results for input(s): "PROTIME", "INR" in the last 72 hours. CARDIAC ENZYMES: No results for input(s): "TROPONINI" in the last 72 hours. Procalcitonin: No results found for: "PROCAL" COVID-19 PCR: No results for input(s): "COVID19" in the last 72 hours. Objective: Vitals: BP 122/70 Pulse 82 Temp 36.9 C (98.5 F) (Temporal) Resp 20 Ht 5' 4" (1.626 m) Wt 151 lb (68.5 kg) SpO2 93% BMI 25.92 kg/m Pulse Ox: SpO2 Av.4 % Min: 92 % Max: 96 % Supplemental O2: Physical Exam Vitals and nursing note reviewed. HENT: Head: Normocephalic and atraumatic. Nose: Nose normal. Mouth/Throat: Mouth: Mucous membranes are moist. Eyes: Pupils: Pupils are equal, round, and reactive to light. Cardiovascular: Rate and Rhythm: Normal rate and regular rhythm. Pulmonary: Effort: Pulmonary effort is normal. Breath sounds: Normal breath sounds. Musculoskeletal: General: Normal range of motion. Cervical back: Normal range of motion. Skin: General: Skin is warm and dry. Neurological: General: No focal deficit present. Mental Status: She is alert. Mental status is at baseline. Psychiatric: Mood and Affect: Mood normal. Behavior: Behavior normal. Thought Content: Thought content normal. Comments: Flat affect Medications: amLODIPine, 10 mg, Oral, Daily aspirin, 81 mg, Oral, Daily enoxaparin, 40 mg, SubCUTAneous, Daily hydrALAZINE, 50 mg, Oral, TID metoprolol tartrate, 100 mg, Oral, BID pantoprazole, 40 mg, Oral, qAM AC PARoxetine, 10 mg, Oral, q AM [START ON 07/18/2023] sertraline, 25 mg, Oral, Daily [START ON 07/25/2023] sertraline, 50 mg, Oral, Daily Assessment Data: (CAT1) Reviewed 2 notes from different specialty or health system (each=1). (CAT1) Reviewed 2 labs/studies previously ordered by me not previously counted (each=1, panels count as 1). (CAT1) Ordered 2 new labs and/or studies (each=1, panels count as 1). (LOW: 2x CAT1 or independent historian MOD: 3x CAT1 or 1x CAT3 EXTENSIVE: 3x CAT1 and 1x CAT3) Acute, acute on chronic, unstable/uncontrolled chronic problems/diagnoses: Adult failure to thrive- palliative following, PT/OT rec SNF at discharge , CM involved Depression- patient on Paxil, high risk medication for her age group, geriatrics titrating off Paxil and changing to Zoloft Stable chronic problems affecting care, new non-acute diagnoses: HTN- continue amlodipine and hydralazine GERD- PPI Plan As a result of the above findings & factors, the following mgmt was pursued: - - am labs, replace lytes prn - PT/OT/CM/SW - delirium precautions: increase activity and limit nighttime disturbances - DVT prophylaxis: enoxaparin and encourage ambulation Complexity: Acute, uncomplicated illness or injury (LOW). Risk: Prescription drug/IVF/colloid was initiated, discontinued, adjusted; or reviewed with decision to maintain current orders (MOD). Low risk diagnostic testing or treatment (LOW). Advance Directive: DNR-CCA Anticipated Discharge - Date - 07/16 - Location - Skilled Facility - Pending the following - insurance auth Total time spent (which include face to face and non face to face encounters) : minutes Toxic drug monitoring/narrow therapeutic index drug monitoring : # Drug name : # Route administered : # Method of monitoring : Extended Emergency Contact Information Primary Emergency Contact: Julianne Bravo Mobile Relation: Sister Preferred language: [place] [employer] Assistant needed? No GENEVA ARBOLEDA CNP Division of Hospitalist Medicine [facility] Images from the original note were not included. PHYSICAL THERAPY [facility] Treatment Note Name/MRN: Yelena Chandra ([id number]) Date of : 1935 Age: 88 y.o. Room/Bed: B4-454/B4-454 B Visit #: 1 out of 5 visits Discharge Recommendation: Nursing Home Facility Equipment Needed: No Prior Level of Function ADL Assistance: Independent Ambulation Assistance: Independent Transfer Assistance: Independent Assessment Pt continues to present with decreased functional independence and is slowly progressing towards PT goals. Pt is limited by rapid fatigue and demos poor safety awareness. Pt requires cues for sequencing and to stay on task. Pt completed bed mobility and transfers with Ezekiel and ambulated with use of FWW with CGA. Pt demos improved endurance with ambulation this date, however is still unsafe to return home. Continue to rec SNF due to high fall and safety risk. Subjective Pt lying in bed and agreeable to therapy. Pain: Pt denies any current pain. Medical Precautions: No active isolations Proper PPE donned/doffed in accordance with facility standards. Fall Risk: Velarde Fall Risk Score: 15 (Low Risk) Precautions/Restrictions: N/A Overall Cognitive Status: Exceptions - Memory: decreased recall of recent events and decreased short term memory - Safety judgement: decreased awareness of need for assistance and decreased awareness of need for safety - Problem solving: assistance required to generate solutions, assistance required to implement solutions, assistance required to identify errors made, and assistance required to correct errors made - Sequencing: requires cues for some Overall Orientation Status: Oriented to Place and Oriented to Person Family/Caregiver Present: none Objective Ambulation Ambulation 1 Assistive device(s) used: front wheeled walker Assist level: Contact Guard Distance (ft): ~75'x1 Quality of gait: reciprocal stepping, shuffling, slow kathleen Increased forward bent posture and limited by decreased endurance. Pt with decreased balance and no acute LOB. Transfers/Mobility Sit to stand: Min Assist Stand to sit: Min Assist From EOB to FWW with Ezekiel to complete and cues for hand placement. Denies dizziness. Device(s) used: front wheeled walker Bed Mobility Supine to sit: Min Assist Sit to supine: Min Assist Scooting: Min Assist Pt requires Ezekiel for trunk and Les and cues for sequencing and initiation. Denies dizziness in sitting. Plan Continue acute PT per plan of care. Safety/Education Safety Safety Devices in place: All fall risk precautions in place, call light within reach, left in bed, gait belt, patient at risk for falls, and nurse notified Restraints: N/A Education Education Given To: patient Education Provided: PT Role, PT Goals, Gait Training, Plan of Care, Precautions, Transfer Training, Energy Conservation, Equipment, and Discharge Recommendations Education Method: Verbal and Demonstration Barriers to Learning: Cognition Education Outcome: Verbalized Understanding and Continued Education Needed Outcome Measures AM-PAC AM-PAC Inpatient Mobility Raw Score (No Stairs) : 15 Goals Patient Stated Goal: To get stronger and decrease falls. Encounter Problems Encounter Problems (Active) Balance Patient will maintain dynamic standing balance for 5 minutes with SBA in order to demonstrate decreased risk of falling. (Progressing) Start: 07/12/23 Expected End: 07/17/23 Exercise Patient will complete lower extremity exercises for 1-2 sets / 5-10 reps in order to improve strength and activity tolerance for mobility. (Not Addressed) Start: 07/12/23 Expected End: 07/17/23 Mobility Patient will ambulate 75 feet with SBA and rolling walker in order to improve safety and independence with mobility. (Progressing) Start: 07/12/23 Expected End: 07/17/23 Transfers Patient will perform bed mobility with modified independence in order to improve independence and prepare for out of bed mobility. (Progressing) Start: 07/12/23 Expected End: 07/17/23 Patient will complete functional transfer with rolling walker with SBA in order to prepare for ambulation. (Progressing) Start: 07/12/23 Expected End: 07/17/23 Therapy Time Individual Co-treatment Time In 1457 Time Out 1509 Minutes 12 Timed Code Treatment Minutes: 11 Minutes (1 Gt) Tea Huang PT Images from the original note were not included. OCCUPATIONAL THERAPY [facility] Treatment Note Name/MRN: Yelena Chandra ([id number]) Date of : 1935 Age: 88 y.o. Room/Bed: B4454/B4454 B Visit #: 1 out of 7 visits Discharge Recommendation: Nursing Home Facility Equipment Needed: No (TBD at next level of care) Prior Level of Function ADL Assistance: Independent Ambulation Assistance: Independent Transfer Assistance: Independent Assessment Pt confused this date requiring extended time for participation. Bed mobility Ezekiel for LE support. CGA for LB dressing. Transfer training and functional mobility at [facility] with LOB noted with pt able to self correct. Pt is limited by weakness, balance, and endurance. Pt would benefit from skilled OT services to maximize safety and independence with ADLs and functional mobility. Rec SNF. Subjective Pleasant and cooperative for tx Per RN, lizzie for OT treatment. PIV in tact Pain: Pt denies any current pain. Medical Precautions: No active isolations Proper PPE donned/doffed in accordance with facility standards. Fall Risk: Velarde Fall Risk Score: 15 (Low Risk) Precautions/Restrictions: N/A Family/Caregiver Present: none Objective ADLs LE Dressing: Contact Guard Pt performed LB dressing sitting EOB unsupported to jen socks at CGA for forward flexion for fall prevention with cuing for hand and foot placement for increased support and balance with good understanding. Extended time for completion. Bed Mobility Supine to sit: Min Assist Sit to supine: Min Assist Pt performed supine to EOB with Ezekiel for BLE support. Returning to supine with Ezekiel for LE elevation with cuing for increased independence. Transfers/Mobility Sit to stand: Contact Guard Stand to sit: Contact Guard Sitting balance: SBA Standing balance: Contact Guard Functional mobility: Contact Guard Pt performed STS with CGA for balance and support with one LOB noted with pt able to self correct. Functional mobility with FWW at [facility] with activity tolerance of ~ 1min before requiring functional recovery period d/t fatigue. Cuing for pacing and maneuvering FWW around obstacles with further training needed for increased independence and safety . Device(s) used: front wheeled walker Plan Continue acute OT per plan of care. Safety/Education Safety Safety Devices in place: All fall risk precautions in place, call light within reach, left in bed, gait belt, patient at risk for falls, and nurse notified Restraints: No Education Education Given To: patient Education Provided: OT Role, Plan of Care, Transfer Training, Fall Prevention Education, and Benefits of Increasing Activity Education Method: Verbal and Teach Back Barriers to Learning: Cognition Education Outcome: Verbalized Understanding and Continued Education Needed AM-PAC AM-PAC Inpatient Daily Activity Raw Score: 19 ADL Inpatient CMS G-Code Modifier: CK Goals Patient Stated Goal: Encounter Problems Encounter Problems (Active) Dressings Lower Extremities Patient will dress lower body with SUP (Slowly Progressing) Start: 07/12/23 Expected End: 07/19/23 Mobility Patient will demonstrate functional ambulation with SUP (Slowly Progressing) Start: 07/12/23 Expected End: 07/19/23 Toileting Patient will complete toileting tasks at standard toilet with supervision. (Not Addressed) Start: 07/12/23 Expected End: 07/19/23 Transfers Patient will complete functional transfer with rolling walker with supervision in order to prepare for ambulation. (Slowly Progressing) Start: 07/12/23 Expected End: 07/19/23 Therapy Time Individual Co-treatment Time In 1310 Time Out 1334 Minutes 24 Timed Code Treatment Minutes: 23 Minutes (1 ADL, 1 TA) CATHLEEN Ramos Nutrition Assessment Type and Reason for Visit: Initial, Consult (DT ref for FTT, wt loss) Nutrition Recommendations/Plan: Continue with Adult diet Regular Initiate Ensure Plus High Protein BID per MNT protocol. Ensure Plus High Protein provides 350 kcals, 20g protein per serving. Please document pt's PO intakes via flowsheet to accurately assess PO intake adequacy. Suggest checking pt's Vitamin D level and supplement if deficient/insufficient. Monitor intakes, weights, and labs weekly. RD will follow. Malnutrition Assessment: Malnutrition Status: Moderate malnutrition Context: Chronic Illness Findings of the 6 clinical characteristics of malnutrition: Energy Intake: 75% or less estimated energy requirements for 1 month or longer Weight Loss: (16.1% wt loss in ~1 yr) From 180# (07/29/22) to CBW 151# Body Fat Loss: Mild body fat loss Orbital, Triceps Muscle Mass Loss: Mild muscle mass loss Clavicles (pectoralis & deltoids) Fluid Accumulation: Mild Extremities Disability Services Coordinator Strength: Not Performed Nutrition Assessment: PT was admitted with CC of feeling weaker and more "unwell" over the past few weeks, has not had an appetite prior to admission. Pt feels like her appetite is a little better since being admitted, but seems to still be ordering 2 meals a day. Encouraged pt to eat three meals/day to help with strengthening and improving her nutrition status. Pt stated that she is able to see the menu ok to order her food. Reviewed the process of calling room service to order her meals. Declined need for assistance for now. RD weighed via bed scale today at 151#. PT had a documented weight of 180# (08/01/22). RD asked pt if her clothes at home seem to fit her looser than before, and pt stated "Some of my clothes, yes." This would suggest a 16% wt loss in ~1 yr. Estimated Daily Nutrient Needs: Energy Requirements Based On: Kcal/kg Weight Used for Energy Requirements: [place] Weight for Energy Calculation (kg): 55 kg Total Energy Requirements (kcals/day): 0832-9166 kcals (28-30 kcals/kg) Weight Used for Protein Requirements: [place] Weight in Kg Used for Protein Requirements: 55 kg Estimated Total Protein (g/day): 55-66 (1-1.2g/kg) Estimated Daily Total Fluid (ml/day): 1540 ml/day or per MD Nutrition Related Findings: +1 BLE edema; Cl 109, CO2 21, Glucose 112, 140, 108, Hgb 10.3, Hct 31.0 Wound Type: (abrasions) Current Nutrition Therapies: Adult diet Regular Current Oral Intake Average Meal Intake: 76-100% (eats 2 meals/day on average) Average Supplements Intake: None Ordered Anthropometric Measures: Height: 162.6 cm (5' 4") Current Body Weight: 68.5 kg (151 lb) Weight Source: Bed Scale Admission Body Weight: 65.8 kg (145 lb) (bed scale) Usual Body Weight: 81.6 kg (180 lb) (08/01/22) % Weight Change (Calculated): -16.1 [place] Body Weight (lbs) (Calculated): 120 lbs [place] Body Weight (Kg) (Calculated): 55 kg % [place] Body Weight (Calculated): 125.8 % BMI (kg/m2) (Calculated): 25.9 Weight Adjustment For: No Adjustment BMI Categories: Overweight (BMI 25.0-29.9) Nutrition Diagnosis: Moderate malnutrition related to inadequate protein-energy intake as evidenced by poor intake prior to admission, mild muscle loss, mild loss of subcutaneous fat, localized or generalized fluid accumulation Nutrition Interventions: Nutrition Education/Counseling: No recommendation at this time Coordination of Nutrition Care: Continue to monitor while inpatient Plan of Care discussed with: Patient Goals: Goals: PO intake 75% or greater, by next RD assessment Nutrition Monitoring and Evaluation: Behavioral-Environmental Outcomes: None Identified Food/Nutrient Intake Outcomes: Diet Advancement/Tolerance, Food and Nutrient Intake, Supplement Intake Physical Signs/Symptoms Outcomes: Biochemical Data, GI Status, Fluid Status or Edema, Nutrition Focused Physical Findings, Skin, Weight Discharge Planning: Continue current diet, Continue Oral Nutrition Supplement Noel Gilmore RD Contact: *[phone] or via Secure Chat Images from the original note were not included. Hospitalist Progress Note 07/14/2023 Subjective: Admit Date: 07/11/2023 PCP: Yenifer Schulz DO Room#: B4-454/B4-454 B Brief Hospital course: Yelena is a 88 y.o. female with past medical history below who presents with chief complaint listed above. She states that she has been feeling weaker and more "unwell" over the past few weeks, has not had an appetite. Denies having any flu like symptoms - no cough, congestion, CP. Does have some SOB - which she states is chronic for her. Currently, lives at home - has had several falls due to weakness - and was not able to walk from the bed to the couch today. Describes general aches and pains. Patient is a vague historian - difficulty to get a history from. Will admit for further evaluation and management. Interval History: No overnight issues.Patient not happy about going to SNF but is now agreeable. Patient lives with sister. She has no complaints today. Patient observed having extreme difficulty moving self in bed. Case and plan discussed with patient and bedside nurse. All questions answered. Adult diet Regular 24HR INTAKE/OUTPUT: Intake/Output Summary (Last 24 hours) at 07/14/2023 0919 Last data filed at 07/14/2023 0724 Gross per 24 hour Intake 240 ml Output -- Net 240 ml Past Medical History: Past Medical History: Diagnosis Date Anxiety Arthritis Hypertension LABS: CBC: Recent Labs 07/12/2345007/13/2332607/14/23310 WBC 7.6 8.1 6.7 RBC 4.12 3.79* 3.78* HGB 11.2* 10.5* 10.3* HCT 34.0* 30.8* 31.0* MCV 82.6 81.3 82.0 RDW 14.9* 15.0* 14.6* PLT 453* 463* 463* BMP: Recent Labs 07/12/2345007/13/2332607/14/23310 NA 134* 134* 135 K 4.4 4.3 3.7 CL 107 108* 109* CO2 20* 21* 21* BUN 17 19* 17 CREATININE 0.79 1.03 0.88 GLUCOSE 108* 140* 112* CALCIUM 8.2* 8.1* 8.0* ANIONGAP 6 4 5 LIVER PROFILE: Recent Labs 07/11/23 1743 AST 32 ALT 16 BILITOT 0.9 ALKPHOS 108 PROT 7.4 PT/INR: No results for input(s): "PROTIME", "INR" in the last 72 hours. CARDIAC ENZYMES: Recent Labs 07/11/23 1743 TROPONINI <0.012 Procalcitonin: No results found for: "PROCAL" COVID-19 PCR: No results for input(s): "COVID19" in the last 72 hours. Objective: Vitals: BP 131/66 (BP Location: Left arm, Patient Position: Lying) Pulse 75 Temp 36.3 C (97.4 F) (Temporal) Resp 18 Wt 145 lb (65.8 kg) SpO2 96% BMI 24.89 kg/m Pulse Ox: SpO2 Av % Min: 94 % Max: 96 % Supplemental O2: Physical Exam Constitutional: Comments: Chronically ill appearing unkempt elderly female HENT: Head: Normocephalic and atraumatic. Mouth/Throat: Mouth: Mucous membranes are moist. Eyes: Pupils: Pupils are equal, round, and reactive to light. Cardiovascular: Rate and Rhythm: Normal rate and regular rhythm. Pulmonary: Effort: Pulmonary effort is normal. Breath sounds: Normal breath sounds. Abdominal: General: Bowel sounds are normal. Palpations: Abdomen is soft. Musculoskeletal: General: Normal range of motion. Cervical back: Normal range of motion. Skin: General: Skin is warm and dry. Neurological: General: No focal deficit present. Mental Status: She is alert and oriented to person, place, and time. Psychiatric: Mood and Affect: Mood normal. Behavior: Behavior normal. Thought Content: Thought content normal. Medications: amLODIPine, 10 mg, Oral, Daily aspirin, 81 mg, Oral, Daily enoxaparin, 40 mg, SubCUTAneous, Daily hydrALAZINE, 50 mg, Oral, TID metoprolol tartrate, 100 mg, Oral, BID pantoprazole, 40 mg, Oral, qAM AC PARoxetine, 20 mg, Oral, q AM Assessment Data: (CAT1) Reviewed 2 notes from different specialty or health system (each=1). (CAT1) Reviewed 2 labs/studies previously ordered by me not previously counted (each=1, panels count as 1). (CAT1) Ordered 2 new labs and/or studies (each=1, panels count as 1). (LOW: 2x CAT1 or independent historian MOD: 3x CAT1 or 1x CAT3 EXTENSIVE: 3x CAT1 and 1x CAT3) Acute, acute on chronic, unstable/uncontrolled chronic problems/diagnoses: Adult failure to thrive- palliative consult, PT/OT rec SNF at discharge , CM involved Depression- patient on Paxil, high risk medication for her age group, geriatrics has been consulted Stable chronic problems affecting care, new non-acute diagnoses: HTN- continue amlodipine and hydralazine GERD- PPI Plan As a result of the above findings & factors, the following mgmt was pursued: - - am labs, replace lytes prn - PT/OT/CM/SW - delirium precautions: increase activity and limit nighttime disturbances - DVT prophylaxis: enoxaparin and encourage ambulation Complexity: Acute, uncomplicated illness or injury (LOW). Risk: Prescription drug/IVF/colloid was initiated, discontinued, adjusted; or reviewed with decision to maintain current orders (MOD). Low risk diagnostic testing or treatment (LOW). Advance Directive: Full Code Anticipated Discharge - Date - 07/15 - Location - Skilled Facility - Pending the following - insurance auth Total time spent (which include face to face and non face to face encounters) : minutes Toxic drug monitoring/narrow therapeutic index drug monitoring : # Drug name : # Route administered : # Method of monitoring : Extended Emergency Contact Information Primary Emergency Contact: ShellyJulianne Mobile Relation: Sister Preferred language: [place] Financial Services Assistant needed? No GENEVA ARBOLEDA CNP Division of Hospitalist Medicine [facility] Images from the original note were not included. Palliative Care Progress Note Chief Complaint: Yelena Chandra is a 88 y.o. female with chief complaint of failure to thrive Palliative care consulted for goals of care Palliative Care is actively following. Assessment/Plan Goals of care - met with patient this morning, she was awake, alert, oriented X 3 - patient's NOK is sister Julianne - discussed HCPOA with patient, stated she wants sister Tiffany Goncalves to be her HCPOA - has 1 brother in [place] - requested patient case manager for assistance with HCPOA - discussed CPR, intubation, vent with patient, patient stated she does not want any of that - patient stated she lives with dog cotton, stated she is very weak and needs to go for therapy - called and spoke with sister Tiffany Rodriguez agreeable to be patient's HCPOA - Julianne agreeable to be patient's decision of DNR, changed Code status to DNRCCA on Epic, signed [place] DNR form and placed on chart - will continue to have ongoing goals of care conversations with patient, family Cognitive deficits - MMSE 24/30 today per geriatrics notes - per sister patient with short term memory loss - geriatrics recommended F/U at [facility] for [facility] on discharge Depression - patient on paxil Failure to thrive - patient agreeable to go to SNF for therapy Total of 55 minutes spent on this encounter including Chart review, Patient visit and exam, Documentation in EHR, Care coordination, and Communicating with primary attending or other consultants. Discharge planning: Not ready for discharge due to ongoing goals of care discussion Patient meets criteria for general inpatient hospice care including the following: N/A - Palliative Care Patient Referrals to: None Discussed patient and the plan of care with the other interdisciplinary team (IDT) members of Palliative Care Team, and with Primary Attending, Patient, and Family Subjective: Subjective/Events Yelena Chandra is a 88 y.o. female admitted to [facility] on 07/11/23 for failure to thrive. Patient seen and examined this morning. Patient stated that she is feeling better. Patient denied any complains. Goals of care:Support for Family/Caregiver and Continue Current management Advance Directives: Full Code Surrogate: Extended Family Prognosis: unknown Spiritual assessment: No spiritual distress identified Bereavement and grief: Grief Issues Not Identified Review of Systems ROS: See palliative care ROS/ESAS below; All other systems were reviewed and are negative. Dawson Symptom Assessment Score Dawson Score Pain Score 0 Tiredness Score 4 Nausea Score 0 Depression Score 0 Anxiety Score 0 Drowsiness Score 0 Anorexia Score (0= eating well, 10= not eating) 4 Wellbeing Score (10= worst sense of well-being) 4 Constipation 0 Dyspnea Score (0= no shortness of breath) 0 FLACC Scale (For Pain Assessment of the Non-Verbal Patient) Patient verbal Assessed by: provider. Social history: status: no Marital status: Living status: with sister and PATRICIA Work history: retired, [employer] Family Meeting: (if discussing Advanced Care Planning, include .PALLACP) Participants: patient and sister Family meeting was held to discuss:Diagnosis and Prognosis, Goals of Care, Treatment Options, Symptom Management, Advanced Care Planning, Prior Expressed Wishes, and Discharge Plan Objective: Physical Exam BP 131/66 (BP Location: Left arm, Patient Position: Lying) Pulse 75 Temp 36.3 C (97.4 F) (Temporal) Resp 18 Wt 145 lb (65.8 kg) SpO2 96% BMI 24.89 kg/m Physical Exam Constitutional: Appearance: She is ill-appearing. HENT: Head: Normocephalic and atraumatic. Right Ear: External ear normal. Left Ear: External ear normal. Nose: Nose normal. Mouth/Throat: Mouth: Mucous membranes are moist. Eyes: General: No scleral icterus. Right eye: No discharge. Left eye: No discharge. Pupils: Pupils are equal, round, and reactive to light. Cardiovascular: Rate and Rhythm: Normal rate and regular rhythm. Pulses: Normal pulses. Heart sounds: Normal heart sounds. No murmur heard. Pulmonary: Effort: Pulmonary effort is normal. Breath sounds: Normal breath sounds. No stridor. No wheezing. Abdominal: General: Abdomen is flat. Bowel sounds are normal. Palpations: Abdomen is soft. Musculoskeletal: General: No swelling. Cervical back: Neck supple. Right lower leg: No edema. Left lower leg: No edema. Skin: General: Skin is warm. Coloration: Skin is not jaundiced. Neurological: Mental Status: She is alert and oriented to person, place, and time. Motor: Weakness present. Psychiatric: Mood and Affect: Mood normal. Current Medications: Inpatient medications reviewed: yes Home medications reviewed: yes OARRS Reviewed: No Report Available 24 Hour PRN Meds: Tylenol 650 mg X 1 Results/Verification of Data Review Objective data reviewed (be specific which labs, imaging reports with dates reviewed): - labs, imaging, MAR reviewed 07/14/23 Data in Support of Terminal Illness: Is patient hospice appropriate? TBD Nutrition rescreen completed. Patient referred to the Dietitian due to dx. failure to thrive with wt. loss. Images from the original note were not included. Speech-Language Pathology SPEECH LANGUAGE PATHOLOGY [facility] Dysphagia Treatment Note Patient Name: Yelena Chandra Evaluation Date: 07/13/2023 Date of : 1935 Admission Date: 07/11/2023 4:59 PM Age: 88 y.o. Room/Bed: [facility] B Subjective Pt alert and agreeable to session - upright in bed, reports no difficulty with breakfast tray Pain: RN managing pain. PPE Worn: surgical mask, gloves Objective & Assessment Dysphagia Treatment # of Activities: 1 Patient consumed bites of regular texture with thin liquids via straw. Pt tolerated trials with adequate mastication and timely swallow initiation noted. No oral residuals remain in oral cavity and no overt clinical s/s aspiration or penetration noted. Pt provided education on safe swallow strategies and demonstrates understanding. 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 Speech therapy to sign off at this time. D/C Recommendations: No follow up therapy recommended post discharge Education Education Given: swallowing strategies, diet recommendations Given To: patient Response: demonstrated understanding Goals Patient Stated Goal: To return home Encounter Problems Encounter Problems (Active) Swallowing Patient will tolerate the least restrictive diet consistency to allow for safe consumption of daily meals (Adequate for Discharge) Start: 07/12/23 Expected End: 07/19/23 Therapy Time GAS COMPRESSOR TURBINE OPERATOR Individual Minutes Time In: 0953 Time Out: 1007 Minutes: 14 Elton Greer MA, [facility]-GAS COMPRESSOR TURBINE OPERATOR Images from the original note were not included. Hospitalist Progress Note 07/13/2023 Subjective: Admit Date: 07/11/2023 PCP: Yenifer Schulz DO Room#: B4-454/B4-454 B Brief Hospital course: Yelena is a 88 y.o. female with past medical history below who presents with chief complaint listed above. She states that she has been feeling weaker and more "unwell" over the past few weeks, has not had an appetite. Denies having any flu like symptoms - no cough, congestion, CP. Does have some SOB - which she states is chronic for her. Currently, lives at home - has had several falls due to weakness - and was not able to walk from the bed to the couch today. Describes general aches and pains. Patient is a vague historian - difficulty to get a history from. Will admit for further evaluation and management. Interval History: No overnight issues.She has no complaints today. Case and plan discussed with patient and bedside nurse. All questions answered. Adult diet Regular 24HR INTAKE/OUTPUT: No intake or output data in the 24 hours ending 07/13/23 0914 Past Medical History: Past Medical History: Diagnosis Date Anxiety Arthritis Hypertension LABS: CBC: Recent Labs 07/11/23174207/12/2345007/13/237 WBC 10.2 7.6 8.1 RBC 4.25 4.12 3.79* HGB 12.0 11.2* 10.5* HCT 34.8* 34.0* 30.8* MCV 81.9 82.6 81.3 RDW 14.8* 14.9* 15.0* PLT 502* 453* 463* BMP: Recent Labs 07/11/23174207/12/2345007/13/23326 NA 134* 134* 134* K 3.0* 4.4 4.3 CL 102 107 108* CO2 23 20* 21* BUN 15 17 19* CREATININE 0.88 0.79 1.03 GLUCOSE 115* 108* 140* CALCIUM 8.8 8.2* 8.1* ANIONGAP 9 6 4 LIVER PROFILE: Recent Labs 07/11/231742 AST 32 ALT 16 BILITOT 0.9 ALKPHOS 108 PROT 7.4 PT/INR: No results for input(s): "PROTIME", "INR" in the last 72 hours. CARDIAC ENZYMES: Recent Labs 07/11/231742 TROPONINI <0.012 Procalcitonin: No results found for: "PROCAL" COVID-19 PCR: No results for input(s): "COVID19" in the last 72 hours. Objective: Vitals: BP 111/61 Pulse 74 Temp 37.1 C (98.8 F) (Temporal) Resp 18 Wt 145 lb (65.8 kg) SpO2 93% BMI 24.89 kg/m Pulse Ox: SpO2 Av % Min: 93 % Max: 95 % Supplemental O2: Physical Exam Vitals and nursing note reviewed. Constitutional: Appearance: Normal appearance. Comments: She appears unkempt , in same shirt as yesterday HENT: Head: Normocephalic and atraumatic. Nose: Nose normal. Eyes: Pupils: Pupils are equal, round, and reactive to light. Cardiovascular: Rate and Rhythm: Normal rate and regular rhythm. Pulmonary: Effort: Pulmonary effort is normal. Breath sounds: Normal breath sounds. Abdominal: General: Bowel sounds are normal. Palpations: Abdomen is soft. Musculoskeletal: General: Normal range of motion. Cervical back: Normal range of motion. Skin: General: Skin is warm and dry. Neurological: General: No focal deficit present. Mental Status: She is alert. Psychiatric: Behavior: Behavior normal. Thought Content: Thought content normal. Comments: Blunted affect Medications: amLODIPine, 10 mg, Oral, Daily aspirin, 81 mg, Oral, Daily enoxaparin, 40 mg, SubCUTAneous, Daily hydrALAZINE, 50 mg, Oral, TID metoprolol tartrate, 100 mg, Oral, BID pantoprazole, 40 mg, Oral, qAM AC PARoxetine, 20 mg, Oral, q AM Assessment Data: (CAT1) Reviewed 2 notes from different specialty or health system (each=1). (CAT1) Reviewed 2 labs/studies previously ordered by me not previously counted (each=1, panels count as 1). (CAT1) Ordered 2 new labs and/or studies (each=1, panels count as 1). (LOW: 2x CAT1 or independent historian MOD: 3x CAT1 or 1x CAT3 EXTENSIVE: 3x CAT1 and 1x CAT3) Acute, acute on chronic, unstable/uncontrolled chronic problems/diagnoses: Adult failure to thrive- palliative consult, PT/OT rec SNF at discharge Depression- patient on Paxil, high risk medication for her age group, geriatrics has been consulted Stable chronic problems affecting care, new non-acute diagnoses: HTN- continue amlodipine and hydralazine GERD- PPI Plan As a result of the above findings & factors, the following mgmt was pursued: - - am labs, replace lytes prn - PT/OT/CM/SW - delirium precautions: increase activity and limit nighttime disturbances - DVT prophylaxis: enoxaparin and encourage ambulation Complexity: Acute, uncomplicated illness or injury (LOW). Stable chronic illness (LOW). Risk: Prescription drug/IVF/colloid was initiated, discontinued, adjusted; or reviewed with decision to maintain current orders (MOD). Low risk diagnostic testing or treatment (LOW). Advance Directive: Full Code Anticipated Discharge - Date - 07/14 - Location - Skilled Facility - Pending the following - SNF Total time spent (which include face to face and non face to face encounters) : minutes Toxic drug monitoring/narrow therapeutic index drug monitoring : # Drug name : # Route administered : # Method of monitoring : Extended Emergency Contact Information Primary Emergency Contact: Julianne Bravo Mobile Relation: Sister Preferred language: [place] Financial Services Assistant needed? No GENEVA ARBOLEDA CNP Division of Hospitalist Medicine [facility] Images from the original note were not included. OCCUPATIONAL THERAPY [facility] Initial Evaluation Name/MRN: Yelena Chandra ([id number]) Evaluation Date: 07/12/2023 Date of : 1935 Admission Date: 07/11/2023 4:59 PM Age: 88 y.o. Room/Bed: B4454/B4454 B Discharge Recommendation: Nursing Home Facility Equipment Needed: No (TBD at next level of care) Assessment IMPRESSION: Pt admitted 07/11 with falls and weakness. Pt found to have failure to thrive. Pt is independent with ADLs and functional mobility at baseline. At time of eval, pt is SBA-min A with ADLs and min A for functional mobility with fww. Pt is limited by weakness, balance, and endurance. Pt is functioning below baseline and would benefit from skilled OT services to maximize safety and independence with ADLs and functional mobility. Rec SNF. Performance Deficits /Impairments: Decreased Functional Mobility, Decreased ADL status, Decreased Strength, Decreased Safety Awareness, Decreased Cognition, Decreased Endurance, Decreased Balance, and Decreased High Level IADLs Prognosis: Fair Decision Making: Medium Complexity Subjective Pt supine in bed at arrival. Pt ok to see per RN. PIV in tact. Pt was pleasant and agreeable to OT eval. Pain: Pt denies any current pain. 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 Fall Risk: Velarde Fall Risk Score: 60 (High Risk) Precautions/Restrictions: N/A Family/Caregiver Present: none Overall Cognitive Status: Exceptions - Following commands: follows one step commands with increased time and follows one step commands with repetition - Attention span: difficulty attending to directions and difficulty dividing attention - Memory: decreased short term memory - Safety judgement: decreased awareness of need for assistance and decreased awareness of need for safety - Problem solving: assistance required to generate solutions, assistance required to implement solutions, assistance required to identify errors made, assistance required to correct errors made, and decreased awareness of errors - Insights: not aware of deficits - Initiation: requires cues for some - Sequencing: requires cues for some Overall Orientation Status: Oriented to Place, Oriented to Person, Disoriented to Situation, and Disoriented to Time Social/Functional History Patient admitted from home. Lives With: Other sister and PATRICIA Type of Home: single family home Home Layout: Single Level Home Home Access: Stairs to Enter with Rails (# of stairs: 4) Bathroom Shower/Tub: Tub/Shower Combo Toilet: Standard Home Equipment: front wheeled walker and cane Homemaking Responsibilities: Needs Assist Receives Help From: Family Active Senior Radiation Therapist: N/A Prior Level of Function ADL Assistance: Independent Ambulation Assistance: Independent Transfer Assistance: Independent Objective ADLs Grooming: SBA LE Dressing: Min Assist Toileting: Min Assist Pt incontinent of urine and small amount of stool. Pt completed toileting bathroom level. Pt thread BLE into briefs with SBA. Pt required min A for threading BLE into pants d/t difficulty managing feet all the way through pant holes. Pt required assist for thoroughness with pericare. Pt managed briefs and pants up to hips with CGA. Pt completed hand hygiene at sink with SBA and verbal cues for sequencing. Pt required verbal cues for sequencing and initiation with all ADL tasks Upper Extremity Assessment AROM: Exceptions: decreased shoulder ROM PROM: Not assessed this session Strength: Exceptions: generalized weakness Vision: not assessed this session Hearing: normal Bed Mobility Supine to sit: SBA Sit to supine: SBA Scooting: SBA Pt completed with HOB elevated and use of bed rails. Denies dizziness. Transfers/Functional Mobility Sit to stand: Min Assist Stand to sit: Min Assist Toilet: Mod Assist Functional mobility: Min Assist Pt standing from EOB to fww with min A for elevation and balance. Pt ambulating to/from bathroom with min A for balance and walker mgmt and verbal cues for safety. Pt required mod A for 2 transfer trials from toilet to fww d/t fatigue. Device(s) used: front wheeled walker AM-PAC AM-PAC Inpatient Daily Activity Raw Score: 19 ADL Inpatient CMS G-Code Modifier: CK Plan Pt would benefit from skilled acute OT services to address Strengthening, ROM, Balance Training, Functional Mobility Training, Endurance Training, Cognitive Reorientation, Pain Management, Safety Education and Training, Patient/Caregiver Training, Equipment Evaluation/Education, Positioning, and Self-Care/ADL Training. Frequency: 7 visits during current hospital admission or until additional recommendations are made Barriers: Confusion, Limited safety awareness, and Decreased endurance Prognosis: fair Safety/Education Safety Safety Devices in place: All fall risk precautions in place, call light within reach, left in bed, bed alarm in place, gait belt, patient at risk for falls, and nurse notified Restraints: N/A Education Education Given To: patient Education Provided: OT Role, Plan of Care, ADL Adaptive Strategies, Transfer Training, Equipment, Fall Prevention Education, Discharge Recommendations, and Benefits of Increasing Activity Education Method: Verbal, Demonstration, and Teach Back Barriers to Learning: Cognition Education Outcome: Continued Education Needed Goals Patient Stated Goal: Patient unable to participate in goal setting at this time. Encounter Problems Encounter Problems (Active) Dressings Lower Extremities Patient will dress lower body with SUP Start: 07/12/23 Expected End: 07/19/23 Mobility Patient will demonstrate functional ambulation with SUP Start: 07/12/23 Expected End: 07/19/23 Toileting Patient will complete toileting tasks at standard toilet with supervision. Start: 07/12/23 Expected End: 07/19/23 Transfers Patient will complete functional transfer with rolling walker with supervision in order to prepare for ambulation. Start: 07/12/23 Expected End: 07/19/23 Therapy Time Individual Co-treatment Time In 1150 Time Out 1210 (co eval with PT) Minutes 20 Savanna Plasencia OT Patient's Occupational Therapy Plan of Care supervision is transferred to a [facility] Occupational Therapist. Goals and/or treatment plan was established in collaboration with patient/family/other representatives. Images from the original note were not included. PHYSICAL THERAPY [facility] Initial Evaluation Name/MRN: Yelena Chandra ([id number]) Evaluation Date: 07/12/2023 Date of : 1935 Admission Date: 07/11/2023 4:59 PM Age: 88 y.o. Room/Bed: B4454/B4454 B Discharge Recommendation: Nursing Home Facility Equipment Needed: No Assessment IMPRESSION: Pt admitted 07/11 with failure to thrive, increased weakness and several falls at home. Pt found to have hypokalemia and hypomagnesemia. Pt presents with the below deficits limiting her functional independence. On evaluation patient requires SBA for bed mobility, Min-modA for tranfers and Ezekiel for ambulation with use of FWW. At baseline patient lives with her sister and PATRICIA and is functionally independent with no device. Pt requires increased assist in the last few weeks. Pt should benefit from skilled PT to increase functional independence and safety. Rec SNF. Prognosis: good Performance Deficits /Impairments: Increased Pain, Decreased Functional Mobility, Decreased ADL status, Decreased Strength, Decreased Safety Awareness, Decreased Cognition, Decreased Endurance, Decreased Balance, and Decreased Posture Decision Making: Medium Complexity Subjective Pt lying in bed and agreeable to therapy. Pain: Pt denies any current pain. 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 Fall Risk: Velarde Fall Risk Score: 60 (High Risk) Precautions/Restrictions: N/A Family/Caregiver Present: none Overall Cognitive Status: Exceptions - Memory: decreased recall of recent events - Safety judgement: decreased awareness of need for assistance and decreased awareness of need for safety - Problem solving: assistance required to generate solutions, assistance required to implement solutions, assistance required to identify errors made, assistance required to correct errors made, and decreased awareness of errors - Initiation: requires cues for some - Sequencing: requires cues for some Overall Orientation Status: Oriented to Place, Oriented to Person, and Disoriented to Time Vision: no visual deficits Hearing: normal Social/Functional History Patient admitted from home. Lives With: Other sister and PATRICIA Type of Home: single family home Home Layout: Single Level Home Home Access: Stairs to Enter with Rails (# of stairs: 4) Bathroom Shower/Tub: Tub/Shower Combo Toilet: Standard Home Equipment: front wheeled walker and cane Homemaking Responsibilities: Needs Assist Receives Help From: Family Active Senior Radiation Therapist: N/A Prior Level of Function ADL Assistance: Independent Ambulation Assistance: Independent Transfer Assistance: Independent Objective Lower Extremity Assessment AROM: WFL PROM: WFL Strength: WFL demos at least 3/5 with mobility Bed Mobility: Supine to sit: SBA Sit to supine: Contact Guard Scooting: SBA Increased time to complete and cues for sequencing. Denies dizziness. Transfers Sit to stand: Min Assist, Mod Assist Stand to sit: Min Assist Pt requires Ezekiel initially from EOB and from toilet and regressed to ModA from toilet due to fatigue and weakness. Denies dizziness. Ambulation Ambulation 1 Assistive device(s) used: front wheeled walker Assist level: Min Assist Distance (ft): ~30'x2 Quality of gait: reciprocal stepping, shuffling, slow kathleen Increased time to complete and cues to stay on task. Pt with poor safety awareness and is a high fall risk. Outcome Measures AM-PAC How much HELP from another person do you currently need Turning from your back to your side while in a flat bed without using bedrails?: A Little Moving from lying on your back to sitting on the side of a flat bed without using bedrails?: A Little Moving to and from a bed to a chair (including a wheelchair)?: A Lot Standing up from a chair using your arms (wheelchair or bedside chair)?: A Lot Walking in a hospital room?: A Little Stair climbing assessed?: No AM-PAC Inpatient Mobility Raw Score (No Stairs) : 13 Plan Pt would benefit from skilled acute PT services to address Strengthening, ROM, Balance Training, Functional Mobility Training, Endurance Training, Gait Training, Pain Management, Safety Education and Training, Patient/Caregiver Training, Equipment Evaluation/Education, and Positioning. Frequency: 5 visits Barriers: Decreased endurance Safety/Education Safety Safety Devices in place: All fall risk precautions in place, call light within reach, left in bed, gait belt, patient at risk for falls, and nurse notified Restraints: N/A Education Education Given To: patient Education Provided: PT Role, PT Goals, Gait Training, Plan of Care, Precautions, Transfer Training, Equipment, Fall Prevention Education, and Discharge Recommendations Education Method: Verbal and Demonstration Barriers to Learning: None Education Outcome: Verbalized Understanding, Demonstrated Understanding, and Continued Education Needed Goals Patient Stated Goal: To get stronger and decrease falls. Encounter Problems Encounter Problems (Active) Balance Patient will maintain dynamic standing balance for 5 minutes with SBA in order to demonstrate decreased risk of falling. Start: 07/12/23 Expected End: 07/17/23 Exercise Patient will complete lower extremity exercises for 1-2 sets / 5-10 reps in order to improve strength and activity tolerance for mobility. Start: 07/12/23 Expected End: 07/17/23 Mobility Patient will ambulate 75 feet with SBA and rolling walker in order to improve safety and independence with mobility. Start: 07/12/23 Expected End: 07/17/23 Transfers Patient will perform bed mobility with modified independence in order to improve independence and prepare for out of bed mobility. Start: 07/12/23 Expected End: 07/17/23 Patient will complete functional transfer with rolling walker with SBA in order to prepare for ambulation. Start: 07/12/23 Expected End: 07/17/23 Therapy Time Individual Co-treatment Time In 1150 Time Out 1210 Minutes 20 Timed Code Treatment Minutes: 9 Minutes (1 Gt) Tea Huang PT Patient's Physical Therapy Plan of Care supervision is transferred to a [facility] Physical Therapist. Goals and/or treatment plan was established in collaboration with patient/family/other representatives. Images from the original note were not included. Speech-Language Pathology SPEECH LANGUAGE PATHOLOGY [facility] Bedside Swallow Evaluation Patient Name: Yelena Chandra Evaluation Date: 07/12/2023 Date of : 1935 Admission Date: 07/11/2023 4:59 PM Age: 88 y.o. Room/Bed: [facility]/B4-454 B IMPRESSION: No s/s oropharyngeal dysphagia. No overt clinical s/s pulmonary compromise with PO. RECOMMENDATION: Recommend Regular solids and Thin liquids and meds as tolerated and the following precautions: - Upright positioning for all PO intake - Small bites/sips - Alternate solid and liquids Pt would benefit from skilled acute GAS COMPRESSOR TURBINE OPERATOR services to address dysphagia POC to ensure safety of recommended diet. Frequency: 2 days/wk for 1 week Barriers: None Prognosis: good D/C Recommendations: No follow up therapy recommended post discharge Subjective Patient alert and cooperative. Seen upright in bed. Answers all basic questions with clear vocal quality. Follows all basic commands. No visitors at bedside. Spoke with RN who cleared pt to be evaluated. Dysphagia History: Prior MBS completed on 07/31/2022 with results indicating trace silent penetration with thin liquid - small cervical esophageal web noted which did not result in any hold up or stenosis. No mely aspiration noted - soft and bite size diet was ordered with thin liquids Baseline Diet: Pt reports regular diet with thin liquids at home Current Diet: Dietary Orders (From admission, onward) Start Ordered 07/11/232122 Adult diet Regular Diet effective now Question: Diet type Answer: Regular 07/11/232121 Tube Feeding: no Tracheostomy: no Recent Chest Xray/CT of Chest: XR chest 1 view 07/11/2023 Impression 1. Stable examination. No acute findings. 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 with a past medical history of anxiety arthritis and hypertension presents to the emergency department due to concern for failure to thrive. Patient is accompanied by her sister at bedside and states that she has had worsening weakness for the past couple weeks. She is also stating that her sister has had decreased appetite. Patient does endorse decreased appetite. Patient denies any chest pain, shortness of breath fevers or chills. Patient denies any headache or blurry vision. Patient denies numbness or tingling to her extremities. Patient denies any pain or discomfort with urination. Patient lives at home with her sister and [id number]. Patient and patient's sister do not want patient to be placed in a snf at this time. Patient Complaint: Pt c/o fatigue Pain: Pt denies any current pain. PPE Worn: surgical mask, gloves Objective Bedside swallow eval completed. Oral Motor Mechanism Adequate structure, strength, and ROM in lingual, labial, and buccal musculature. Adequate dentition. Oral Hygiene: moist, clean Swallowing Examination PO Trials - thin liquid, (straw) - puree, (teaspoon) - regular solids Oral Phase Pt with adequate oral receipt of PO trials. No anterior spillage. Mastication appeared complete, organized, and timely. Oral transit time appears WFL. No oral residue. Pharyngeal Phase Hyolaryngeal excursion clinically appears adequate and timely per palpation. 1-2 swallows palpated per bolus, likely indicative of adequate pharyngeal clearance. No overt clinical s/s airway penetration as evidenced by no cough, no throat clear, and no change in vocal quality. Education Education Given: swallowing strategies, diet recommendations Given To: patient Response: verbalizes understanding Goals Patient Stated Goal: To return home Encounter Problems Encounter Problems (Active) Swallowing Patient will tolerate the least restrictive diet consistency to allow for safe consumption of daily meals (Initiated) Start: 07/12/23 Expected End: 07/19/23 Therapy Time GAS COMPRESSOR TURBINE OPERATOR Individual Minutes Time In: 0942 Time Out: 0956 Minutes: 14 Elton Greer MA, [facility]-GAS COMPRESSOR TURBINE OPERATOR Images from the original note were not included. Hospitalist Progress Note 07/12/2023 Subjective: Admit Date: 07/11/2023 PCP: Yenifer Schulz DO Room#: B4-454/B4-454 B Brief Hospital course: Yelena is a 88 y.o. female with past medical history below who presents with chief complaint listed above. She states that she has been feeling weaker and more "unwell" over the past few weeks, has not had an appetite. Denies having any flu like symptoms - no cough, congestion, CP. Does have some SOB - which she states is chronic for her. Currently, lives at home - has had several falls due to weakness - and was not able to walk from the bed to the couch today. Describes general aches and pains. Patient is a vague historian - difficulty to get a history from. Will admit for further evaluation and management. Interval History: No overnight issues. Patient with vague complaint of not feeling "right". She has no specific complaints and denies chest pain, shortness of breath, fever or chills. Case and plan discussed with patient and bedside nurse. All questions answered. Adult diet Regular 24HR INTAKE/OUTPUT: Intake/Output Summary (Last 24 hours) at 07/12/2023 0935 Last data filed at 07/12/2023 0615 Gross per 24 hour Intake 858.33 ml Output -- Net 858.33 ml Past Medical History: Past Medical History: Diagnosis Date Anxiety Arthritis Hypertension LABS: CBC: Recent Labs 07/11/23174207/12/23 0451 WBC 10.2 7.6 RBC 4.25 4.12 HGB 12.0 11.2* HCT 34.8* 34.0* MCV 81.9 82.6 RDW 14.8* 14.9* PLT 502* 453* BMP: Recent Labs 07/11/23174207/12/23450 NA 134* 134* K 3.0* 4.4 CL 102 107 CO2 23 20* BUN 15 17 CREATININE 0.88 0.79 GLUCOSE 115* 108* CALCIUM 8.8 8.2* ANIONGAP 9 6 LIVER PROFILE: Recent Labs 07/11/231742 AST 32 ALT 16 BILITOT 0.9 ALKPHOS 108 PROT 7.4 PT/INR: No results for input(s): "PROTIME", "INR" in the last 72 hours. CARDIAC ENZYMES: Recent Labs 07/11/231742 TROPONINI <0.012 Procalcitonin: No results found for: "PROCAL" COVID-19 PCR: No results for input(s): "COVID19" in the last 72 hours. Objective: Vitals: BP 126/76 (BP Location: Right arm, Patient Position: Lying) Pulse 69 Temp 36.5 C (97.7 F) (Temporal) Resp 18 Wt 145 lb (65.8 kg) SpO2 94% BMI 24.89 kg/m Pulse Ox: SpO2 Av % Min: 93 % Max: 99 % Supplemental O2: Physical Exam Vitals and nursing note reviewed. Constitutional: Appearance: Normal appearance. HENT: Head: Normocephalic and atraumatic. Nose: Nose normal. Mouth/Throat: Mouth: Mucous membranes are moist. Eyes: Pupils: Pupils are equal, round, and reactive to light. Cardiovascular: Rate and Rhythm: Normal rate and regular rhythm. Pulmonary: Effort: Pulmonary effort is normal. Breath sounds: Normal breath sounds. Abdominal: General: Bowel sounds are normal. Palpations: Abdomen is soft. Musculoskeletal: General: Normal range of motion. Cervical back: Normal range of motion. Right lower leg: Edema present. Left lower leg: Edema present. Skin: General: Skin is warm and dry. Neurological: General: No focal deficit present. Mental Status: She is alert. Psychiatric: Mood and Affect: Mood normal. Behavior: Behavior normal. Medications: amLODIPine, 10 mg, Oral, Daily aspirin, 81 mg, Oral, Daily enoxaparin, 40 mg, SubCUTAneous, Daily hydrALAZINE, 50 mg, Oral, TID metoprolol tartrate, 100 mg, Oral, BID pantoprazole, 40 mg, Oral, qAM AC PARoxetine, 20 mg, Oral, q AM Assessment Data: (CAT1) Reviewed 3 or more notes from different specialty or health system (each=1). (CAT1) Reviewed 2 labs/studies ordered by another provider not previously counted (each=1, panels count as 1). (CAT1) Ordered 2 new labs and/or studies (each=1, panels count as 1). (LOW: 2x CAT1 or independent historian MOD: 3x CAT1 or 1x CAT3 EXTENSIVE: 3x CAT1 and 1x CAT3) Acute, acute on chronic, unstable/uncontrolled chronic problems/diagnoses: Adult failure to thrive- palliative consult, PT/OT rec SNF at discharge Depression- patient on Paxil, high risk medication for her age group, geriatrics has been consulted Stable chronic problems affecting care, new non-acute diagnoses: HTN- continue amlodipine and hydralazine GERD- PPI Plan As a result of the above findings & factors, the following mgmt was pursued: - - am labs, replace lytes prn - PT/OT/CM/SW - delirium precautions: increase activity and limit nighttime disturbances - DVT prophylaxis: enoxaparin and encourage ambulation Complexity: Multiple stable chronic illnesses (MOD). Risk: Prescription drug/IVF/colloid was initiated, discontinued, adjusted; or reviewed with decision to maintain current orders (MOD). Low risk diagnostic testing or treatment (LOW). Advance Directive: Full Code Anticipated Discharge - Date - TBD - Location - Skilled Facility - Pending the following - clinical improvement Total time spent (which include face to face and non face to face encounters) : minutes Toxic drug monitoring/narrow therapeutic index drug monitoring : # Drug name : # Route administered : # Method of monitoring : Extended Emergency Contact Information Primary Emergency Contact: lindapamellaJulianne Mobile Relation: Sister Preferred language: [place] [employer] Assistant needed? No GENEVA ARBOLEDA CNP Division of Hospitalist Medicine Acute [facility] Geriatric Medicine Inpatient Consult Service Geriatric Consultation acknowledged. Patient will be seen on the next business day. For acute geriatric concerns or questions, please send an [employer] secure chat message to the on-call ceramic designer. documented in this encounter [facility] 07-22-2023 Nurse Note Report called to Tammy at [facility] 07-22-2023 Nurse Note Report called to Tammy [facility] documented in this encounter [facility] 07-22-2023 Note Formatting of this n ote might be different from the original. Discharge med list transmitted to [facility] via [employer] per TCC request. 7000 was entered into [facility] for the SNF- Facility is aware. [facility] 07-22-2023 Note Formatting of this n ote might be different from the original. Discharge med list transmitted to [facility] via [facility]port per TCC request. 7000 was entered into [employer] [facility] for the [facility] is aware. [facility] 07-22-2023 Miscellaneous Notes Discharge med list transmitted to [facility] via [facility]port per TCC request. 7000 was entered into [facility] for the [facility] is aware. Patient Choice Patient Name: YELENA CHANDRA Date of : 1935 All Providers Sent Referral Name: Nadeem [facility]cc[facility] Phone: [phone] Address: [address] [place] [address] Name: [facility] Phone: [phone] Address: [address] [place] [address] Images from the original note were not included. Care Management Progress Note DC orders in and signed by Yahaira CAMERON. CUSTODY OFFICER set up transport for 10 AM. ACADEMIC AFFAIRS SPECIALIST tasked in Careport to send 7000 and DC info to [facility]. DC to SNF in stable condition. Discharge Milestones and Delays Expected Date/Time: 07/22/2023 Disposition: Nursing Home Facility Transport status: No current request Discharge Milestones Completed Place discharge order Complete med reconciliation Case mgmt discharge readiness Clinical Stability Diagnsotic Workup Expected Discharge History Expected Date/Time Set By Reviewed At 07/22/2023 Yahaira Griffith APRN - DILEEP 07/22/2023 9:09 AM Auth obtained for [facility]OW 07/22/2023 Claudia Lyman RN 07/22/2023 8:21 AM 07/22/2023 Claudia Lyman RN 07/21/2023 8:28 AM Per ID and IC- Can DC 07/22 Auth started" 07/22/2023 Claudia Lyman RN 07/18/2023 8:07 AM Tamiflu x 5 days Can't go to SNF until Flu A neg Need auth" 07/18/2023 CASS Hanson 07/17/2023 10:14 AM Now Flu A + Auth approved for [facility]OW" 07/17/2023 Claudia Lyman RN 07/17/2023 8:14 AM 07/17/2023 CASS Hanson 07/16/2023 9:59 AM AUTH PENDING FOR [facility]" 07/16/2023 Ghazal Gambino RN 07/16/2023 9:03 AM Ghazal Gambino RN 07/16/2023 9:02 AM 07/16/2023 Ghazal Gambino RN 07/15/2023 8:27 AM need snf choices from family, facility and auth." 07/15/2023 Ghazal Gambino RN 07/14/2023 8:37 AM geriatrics consult pending. snf 07/13/2023 Thomas Nicole DO 07/11/2023 9:09 PM 07/13/2023 Thomas Nicole DO 07/11/2023 6:53 PM Length of Stay (Days): 11 GMLOS: 2.6 Transportation arranged through [facility] by cot set for 10 am. Notified RN and TCC of this via [employer]. Notified [facility] admissions of transportation time via [facility]. Will update patient at bedside. SW remains available if any other needs or concerns arise. Sent updated notes to [facility] per TCC request. Await review and response regarding ability to accept. TCC notified. Per ID and Infection Control, patient can DC to SNF on 07/22. Requested auth be started for [facility]. TCC will continue to follow. Family Communication Number Called: [phone] Name of Designated Family Tool Grinding Technician: Julianne Bravo sibling I left a HIPPA compliant message at the number listed above Family Tool Grinding Technician Updated on the Following: N/A Images from the original note were not included. Care Management Progress Note Patient remains on 4S for Decreased ADLs Clinical updates: Now testing pos for Influenza A. SNF is unable to accept until she tests neg, on Tamiflu x 5 days, can't retest until she is off Tamiflu (false neg). Will need to re-submit for auth once neg for Flu A Discharge plan: [facility] Discharge obstacles: Awaiting clinical stability TCC will continue to follow. Discharge Milestones and Delays Expected Date/Time: 07/22/[address] discharge order Complete med reconciliation Case mgmt discharge readiness Clinical Stability Diagnsotic Workup Expected Discharge History Expected Date/Time Set By Reviewed At 07/22/2023 Claudia Lyman RN 07/18/2023 8:07 AM Tamiflu x 5 days Can't go to SNF until Flu A neg Need auth" 07/18/2023 CASS Hanson 07/17/2023 10:14 AM Now Flu A + Auth approved for [facility]" 07/17/2023 Claudia Lyman RN 07/17/2023 8:14 AM 07/17/2023 CASS Hanson 07/16/2023 9:59 AM AUTH PENDING FOR [facility]" 07/16/2023 Ghazal Gambino RN 07/16/2023 9:03 AM Ghazal Gambino RN 07/16/2023 9:02 AM 07/16/2023 Ghazal Gambino RN 07/15/2023 8:27 AM need snf choices from family, facility and auth." 07/15/2023 Ghazal Gambino, MITA 07/14/2023 8:37 AM geriatrics consult pending. snf 07/13/2023 Thomas Nicole DO 07/11/2023 9:09 PM 07/13/2023 Thomas Nicole DO 07/11/2023 6:53 PM Length of Stay (Days): 7 GMLOS: 2.6 S/W, HCPOA I did visit patient in room along with TCC to complete HCPOA paperwork. The patient noted at this time there is noone she would name as a HCPOA as she does not trust anyone and felt this would give " them permission to kill me." I did attempt to explain HCPOA further to patient and she still insisted she would not name anyone HCPOA. Confusion present. I did inform creative consultant who stated the patient has been confused today. Did update [facility] that don't anticipate discharge today... Authorization for [facility] received. Updated attending and await if patient is able to discharge today. . Did update patient that are awaiting auth for [facility]. Patient is requiring oxygen at 2 liters this morning. Ivf dc'd and cxr this morning. Will update attending once auth received. . Images from the original note were not included. Care Management Progress Note Updated ACADEMIC AFFAIRS SPECIALIST to submit [facility] for [facility]. Await auth for [facility]. Will update attending once auth received. Anticipate discharge today. Will need JEFFERSON completed to submit 7000 . Discharge Milestones and Delays Expected Date/Time: 07/16/[address] discharge order Complete med reconciliation Case mgmt discharge readiness Clinical Stability Diagnsotic Workup Expected Discharge History Expected Date/Time Set By Reviewed At 07/16/2023 Ghazal Gambino RN 07/15/2023 8:27 AM need snf choices from family, facility and auth." 07/15/2023 Ghazal Gambino RN 07/14/2023 8:37 AM geriatrics consult pending. snf 07/13/2023 Thomas Nicole DO 07/11/2023 9:09 PM 07/13/2023 Thomas Robertse, 07/11/2023 6:53 PM Length of Stay (Days): 5 GMLOS: 2.6 Per careport, [facility] accept. Await reply from [facility]. Referral placed to [facility] via [facility] per TCC request. Await review and response regarding ability to accept. TCC notified. Called and spoke with patient's sister Julianne and tasked ACADEMIC AFFAIRS SPECIALIST to place referrals to [facility] and [facility]. Did update facilities, patient will be ready for discharge as soon as auth received. . SW consult for discharge planning. Reviewed chart. TCC assisting patient and family with SNF placement. HCPOA is needing completed. Will do this today with patient. Will follow. Spoke with patient at bedside and she could not remember making any snf choices with her sister yesterday. Will need to call sister a little later this morning to obtain choices.. Images from the original note were not included. Care Management Progress Note Await SNF choices from patient and her sister and will submit for auth once have accepting facility. gas worker and TCC will attempt to complete HCPOA paperwork today... Discharge Milestones and Delays Expected Date/Time: 07/15/[address] discharge order Complete med reconciliation Case mgmt discharge readiness Clinical Stability Diagnsotic Workup Expected Discharge History Expected Date/Time Set By Reviewed At 07/15/2023 Ghazal Gambino RN 07/14/2023 8:37 AM geriatrics consult pending. snf 07/13/2023 Thomas Nicole DO 07/11/2023 9:09 PM 07/13/2023 Thomas Nicole DO 07/11/2023 6:53 PM Length of Stay (Days): 4 GMLOS: 2.6 Did speak with both patient and her sister both agreeable to SNF. List of in network facilities printed and reviewed and left at bedside for them to review and call TCC with choices. Will need accepting facility and insurance auth prior to discharge. . Images from the original note were not included. Care Management Progress Note Patient not wanting to discharge to snf, but family that cares for her is agreeable to SNF.. List of in network SNFs printed and will review with patient and family. Geriatrics consult is ordered and pending. Tentative discharge plan is snf. Will need accepting facility and insurance auth prior to discharge.. Discharge Milestones and Delays Expected Date/Time: 07/13/[address] discharge order Complete med reconciliation Case mgmt discharge readiness Clinical Stability Diagnsotic Workup Expected Discharge History Expected Date/Time Set By Reviewed At 07/13/2023 Thomas NicoleDO 07/11/2023 9:09 PM 07/13/2023 Thomas Nicole, DO 07/11/2023 6:53 PM Length of Stay (Days): 3 GMLOS: No GMLOS Documented Mixer Machine Feeder following case for Discharge Needs. Unable to reach pt in room. Spoke with Julianne (sister) at [phone]. Julianne is in agreement with SNF. States pt is unable to take care of herself at home and is to weak to stand or sit . States poor appetite and would like to see pt get stronger before coming home Care Managment Initial Assessment Date: 07/12/2023 Patient Name: Yelena Chandra : 1935 Patient Information Source of Information: Patient Cognition/Language: WFL - Within Functional Limits Permission given to speak with patient entry level marketing representative/caregiver as indicated: Confirmation of Payer with patient/family: Yes Payer Name: [facility] Medicare [place]: No Confirmation of Primary Care Physician: Confirmed PCP Name: Dr. Schulz Seen in last 2 years?: Yes Primary Caregiver: Self If assistance needed, confirmed caregiver ready, willing and able to care for patient at discharge: Yes Confirmed with: Per patient, sister and cmnyexe-or-gaj are very helpful Living Arrangements Current Residence: House Number of Floors 2 Number of Entry Steps: 4 Bed/Bath Levels: Both first floor Facility: Facility Name: Plan to Return: Yes Lives with: Extended family members (Sister and vpfpkao-lf-ksb) Support Systems: Family members, Friends/neighbors Activities of Daily Living Ambulation: Assistance (cane or walker) Bathing/Dressing: Independent Elimination/Continence/Toileting: Independent Feeding: Independent Who Assists with Activities of Daily Living: Instrumental Activities of Daily Living Prescription Coverage: Yes Pharmacy Used: [address] Medication Management: Independent Transportation/Shopping: Independent Transportation Mode: Car Needs Assistance with Transportation at Discharge: No Meal Preparation: Assistance Provider Meal Prep Assistance Provider Name: Family Laundry/Cleaning: Assistance Provider Laundry/Cleaning Assistance Provider Name: Family Finances/Bill Paying: Independent Communication: Independent Types of Care Services/Equipment Utilized Care Services: (N/A) Dialysis Type: NA Durable Medical Equipment: Cane, Walker Patient's Goal/Discharge Plan Patient expects to be discharged to: Home with [facility] - PT/OT rec SNF but patient (and her sister/vgpthqy-jh-pih, per patient) decline at this time Discharge Planning Actions: Continue to follow Patient's Choice Rights and [employer] and Collaborative Relationships Disclosed as Indicated for Post-Acute Care: Interdisciplinary Team Engagement: Home Health Care Social Work Referral for: Additional Information: Spoke with patient at bedside. Introduced self and role. Patient admitted for increasing weakness and general malaise with no appetite - failure to thrive. Has had several falls due to weakness. Geriatrics consulted. PT/OT rec SNF but patient (and, per patient, sister/gkurijl-ja-lzo who she lives with) decline at this time. Agreeable to [facility]. Oliverio CHOI liaison to follow. TCC will continue to follow. Galileo Mejía RN documented in this encounter [facility] 07-22-2023 Note Formatting of this n ote might be different from the original. Patient Choice Patient Name: YELENA CHANDRA Date of : 1935 All Providers Sent Referral Name: Nadeem YARBROUGH Member Phone: [phone] Address: [address] [place] [address] Name: Huber SAMANIEGO Phone: [phone] Address: [address] [place] [address] [facility] 07-22-2023 Note Formatting of this n ote might be different from the original. Patient Choice Patient Name: YELENA CHANDRA Date of : 1935 All Providers Sent Referral Name: Nadeem Fernández - SERAFINN Member Phone: [phone] Address: [address] [place] [address] Name: [facility] Nadeem [facility] Phone: [phone] Address: [address] [place] [address] [facility] 07-22-2023 Note Formatting of this n ote is different from the original. Images from the original note were not included. Care Management Progress Note DC orders in and signed by Yahaira CAMERON. CUSTODY OFFICER set up transport for 10 AM. ACADEMIC AFFAIRS SPECIALIST tasked in [employer] to send 7000 and DC info to [facility]. DC to SNF in stable condition. Discharge Milestones and Delays Expected Date/Time: 07/22/2023 Disposition: Nursing Home Facility Transport status: No current request Discharge Milestones Completed Place discharge order Complete med reconciliation Case mgmt discharge readiness Clinical Stability Diagnsotic Workup Expected Discharge History Expected Date/Time Set By Reviewed At 07/22/2023 GENEVA Arboleda CNP 07/22/2023 9:09 AM Auth obtained for [facility] 07/22/2023 Claudia Lyman RN 07/22/2023 8:21 AM 07/22/2023 Claudia Lyman RN 07/21/2023 8:28 AM Per ID and IC- Can DC 07/22 Auth started" 07/22/2023 Claudia Lyman RN 07/18/2023 8:07 AM Tamiflu x 5 days Can't go to SNF until Flu A neg Need auth" 07/18/2023 CASS Hanson 07/17/2023 10:14 AM Now Flu A + Auth approved for [facility]" 07/17/2023 Claudia Lyman RN 07/17/2023 8:14 AM 07/17/2023 CASS Hanson 07/16/2023 9:59 [address] [facility] 07/16/2023 Ghazal Gambino RN 07/16/2023 9:03 AM Ghazal Gambino RN 07/16/2023 9:02 AM 07/16/2023 Ghazal Gambino RN 07/15/2023 8:27 AM need snf choices from family, facility and auth." 07/15/2023 Ghazal Gambino RN 07/14/2023 8:37 AM geriatrics consult pending. snf 07/13/2023 Thomas Dale, DO 07/11/2023 9:09 PM 07/13/2023 Thomas Nicole, DO 07/11/2023 6:53 PM Length of Stay (Days): 11 GMLOS: 2.6 [facility] 07-22-2023 Note Formatting of this n ote is different from the original. Images from the original note were not included. Care Management Progress Note DC orders in and signed by Yahaira CAMERON. CUSTODY OFFICER set up transport for 10 AM. ACADEMIC AFFAIRS SPECIALIST tasked in [employer] to send 7000 and DC info to [facility]. DC to SNF in stable condition. Discharge Milestones and Delays Expected Date/Time: 07/22/2023 Disposition: Nursing Home Facility Transport status: No current request Discharge Milestones Completed Place discharge order Complete med reconciliation Case mgmt discharge readiness Clinical Stability Diagnsotic Workup Expected Discharge History Expected Date/Time Set By Reviewed At 07/22/2023 GENEVA Arboleda CNP 07/22/2023 9:09 AM Auth obtained for SOW 07/22/2023 Claudia Lyman RN 07/22/2023 8:21 AM 07/22/2023 Claudia Lyman RN 07/21/2023 8:28 AM Per ID and IC- Can DC 07/22 Auth started" 07/22/2023 Claudia Lyman RN 07/18/2023 8:07 AM Tamiflu x 5 days Can't go to SNF until Flu A neg Need auth" 07/18/2023 CASS Hanson 07/17/2023 10:14 AM Now Flu A + Auth approved for [facility]OW" 07/17/2023 Claudia Lyman RN 07/17/2023 8:14 AM 07/17/2023 CASS Hanson 07/16/2023 9:[address] [facility]" 07/16/2023 Ghazal Gambino RN 07/16/2023 9:03 AM Ghazal Gambino RN 07/16/2023 9:02 AM 07/16/2023 Ghazal Gambino RN 07/15/2023 8:27 AM need snf choices from family, facility and auth." 07/15/2023 Ghazal Gambino RN 07/14/2023 8:37 AM geriatrics consult pending. snf 07/13/2023 Thomas Nicole DO 07/11/2023 9:09 PM 07/13/2023 Thomas Nicole DO 07/11/2023 6:53 PM Length of Stay (Days): 11 GMLOS: 2.6 [facility] 07-22-2023 Note Formatting of this n ote might be different from the original. Transportation arranged through [facility] by cot set for 10 am. Notified RN and TCC of this via [employer] chat. Notified [facility] admissions of transportation time via [facility]. Will update patient at bedside. SW remains available if any other needs or concerns arise. [facility] 07-22-2023 Note Formatting of this n ote might be different from the original. Transportation arranged through [facility] by cot set for 10 am. Notified RN and TCC of this via [employer] chat. Notified [facility] admissions of transportation time via [employer]. Will update patient at bedside. SW remains available if any other needs or concerns arise. [facility] 07-22-2023 Hospital course Narrative Images from the original note were not included. Hospitalist Discharge Summary Yelena Chandra : 1935 Admit date: 07/11/2023 Discharge date: 07/22/2023 Admitting Physician: Nicole Lombardi MD Primary Care Physician: Yenifer Schulz DO Visit Status: inpatient Code Status: DNR-CCA Acute, acute on chronic, unstable/uncontrolled chronic problems/discharge diagnoses: Adult failure to thrive- palliative following, PT/OT rec SNF at discharge , CM involved Depression- patient on Paxil, high risk medication for her age group, Paxil titrated and DC'd and changed to Zoloft New oxygen requirement- not on oxygen at home, currently on 3L/nc SpO2s mid to high 90s. CXR 07/16:concern for possible infiltrates, patient is afebrile. Urine antigens negative. Unable to obtain sputum for pneumonia PCR. Wean oxygen Influenza A: symptoms improving, supportive care, continue Tamiflu. Isolation can be Dc'd 07/22 per Inf Control Mild hypokalemia: continue supplemental potassium. Dysphagia: appreciate Speech recs RECOMMENDATION: Recommend Soft and bite-sized solids and Thin liquids and meds crushed in puree and the following precautions: - Upright positioning for all PO intake - Slow rate of intake - Small bites/sips - Alternate solid and liquids Stable chronic problems affecting care, new non-acute discharge diagnoses: HTN- continue amlodipine and hydralazine GERD- PPI Past Medical History: Diagnosis Date Anxiety Arthritis Hypertension Procedures: CXR Hospital Course: Yelena is a 88 y.o. female with past medical history below who presents with chief complaint listed above. She states that she has been feeling weaker and more "unwell" over the past few weeks, has not had an appetite. Denies having any flu like symptoms - no cough, congestion, CP. Does have some SOB - which she states is chronic for her. Currently, lives at home - has had several falls due to weakness - and was not able to walk from the bed to the couch today. Describes general aches and pains. She had PT/OT evaluation and requires skilled facility at discharge. While awaiting for insurance authorization patient found to have Influenza A. She completed treatment with [facility] and is out of isolation. See discharge diagnoses list above and medication adjustments below in med rec.The patient is discharged in improved and stable condition. Consults: IP CONSULT TO CASE MANAGEMENT IP CONSULT TO SOCIAL WORK IP CONSULT TO PALLIATIVE CARE IP CONSULT TO GERIATRICS Discharge Instructions: Diet: Dietary Orders (From admission, onward) Start Ordered 07/19/23 1329 Adult diet Dysphagia - Soft and Bite Sized Diet effective now Question: Diet type Answer: Dysphagia - Soft and Bite Sized 07/19/23 1328 07/14/23 1054 Supplement:Lunch, Dinner; Chocolate Ensure Plus Until discontinued Question Answer Comment Frequency Lunch Frequency Dinner Select supplement: Chocolate Ensure Plus 07/14/23 1053 Activity: as tolerated Recommended Outpatient Tests: Disposition: Patient discharged in stable condition to Long-Term Acute Care. Greater than 31 minutes spent discharging the patient and coming up with patient discharge plan. Vitals: BP 136/69 (BP Location: Left arm, Patient Position: Lying) Pulse 73 Temp 36 C (96.8 F) (Temporal) Resp 16 Ht 5' 4" (1.626 m) Wt 151 lb (68.5 kg) SpO2 97% BMI 25.92 kg/m Pulse Ox: SpO2 Av % Min: 97 % Max: 97 % Supplemental O2: O2 Flow Rate (L/min): 3 L/min Physical Exam Vitals and nursing note reviewed. Constitutional: Appearance: Normal appearance. HENT: Head: Normocephalic and atraumatic. Nose: Nose normal. Mouth/Throat: Mouth: Mucous membranes are dry. Cardiovascular: Rate and Rhythm: Normal rate and regular rhythm. Pulmonary: Effort: Pulmonary effort is normal. Breath sounds: Normal breath sounds. Abdominal: General: Bowel sounds are normal. Palpations: Abdomen is soft. Musculoskeletal: General: Normal range of motion. Skin: General: Skin is warm and dry. Neurological: General: No focal deficit present. Mental Status: She is alert. Mental status is at baseline. Psychiatric: Mood and Affect: Mood normal. Behavior: Behavior normal. Thought Content: Thought content normal. LABS: Recent Labs 07/21/23 0504 NA 132* K 3.9 CL 99 CO2 30 BUN 32* CREATININE 0.96 GLUCOSE 121* CALCIUM 8.3* No results for input(s): "WBC", "RBC", "HGB", "HCT", "MCV", "MCH", "MCHC", "RDW", "PLT", "MPV" in the last 72 hours. Discharge Medications: Medication List START taking these medications melatonin 3 MG tablet Take 1 tablet (3 mg) by mouth Nightly as needed for sleep. * sertraline 25 MG tablet Commonly known as: Zoloft Take 1 tablet (25 mg) by mouth daily for 2 doses. Start taking on: July 23, 2023 * sertraline 50 MG tablet Commonly known as: Zoloft Take 1 tablet (50 mg) by mouth daily. Do not start before July 25, 2023. Start taking on: July 25, 2023 * This list has 2 medication(s) that are the same as other medications prescribed for you. Read the directions carefully, and ask your doctor or other care provider to review them with you. CHANGE how you take these medications amLODIPine 5 MG tablet Commonly known as: Norvasc Take 1 tablet (5 mg) by mouth daily. Start taking on: July 23, 2023 What changed: medication strength how much to take CONTINUE taking these medications aspirin 81 MG EC tablet metoprolol tartrate 100 MG tablet Commonly known as: Lopressor pantoprazole 40 MG EC tablet Commonly known as: ProtoNix Take 1 tablet (40 mg) by mouth every morning (before breakfast). Do not crush, chew, or split. Do not start before August 07, 2022. therapeutic multivitamin-minerals tablet STOP taking these medications hydrALAZINE 50 MG tablet Commonly known as: Apresoline PARoxetine 10 MG tablet Commonly known as: Paxil Where to Get Your Medications Information about where to get these medications is not yet available Ask your nurse or doctor about these medications amLODIPine 5 MG tablet melatonin 3 MG tablet sertraline 25 MG tablet sertraline 50 MG tablet Recommended Follow-up: [facility] [place] [address] Follow up in 1 month(s) F/U for cognitive deficits, depression/anxiety Complexity of Follow up: [x] Moderate Complexity: follow up within 7-14 calendar days (77714) [] Severe Complexity: follow up within 7 calendar days (54745) Follow up Testing, Pending results or Referrals at Transitional Care Visit: [x] yes [] no Instructions to MA: Please call patient on day after discharge (must document patient contacted within 2 business days of discharge). Follow up questions for MA: 1. Did you get medications filled and taking them as instructed from discharge? 2. Are you following your discharge instructions from your hospital stay? 3. Please confirm patient is scheduled for a follow up appointment within the above time frame. Signed: YAHAIRA GRIFFITH APRN - [facility] 07/22/2023, 9:09 AM documented in this encounter [facility] 07-21-2023 Note Formatting of this n ote might be different from the original. Sent updated notes to [facility] request. Await review and response regarding ability to accept. TCC notified. [facility] 07-21-2023 Note Formatting of this n ote might be different from the original. Sent updated notes to [facility] per TCC request. Await review and response regarding ability to accept. TCC notified. [facility] 07-21-2023 Note Formatting of this n ote might be different from the original. Per ID and Infection Control, patient can DC to SNF on 07/22. [facility] will continue to follow. [facility] 07-21-2023 Note Formatting of this n ote might be different from the original. Per ID and Infection Control, patient can DC to SNF on 07/22. Requested auth be started for [facility]. TCC will continue to follow. [facility] 07-18-2023 Note Formatting of this n ote might be different from the original. Family Communication Number Called: [phone] Name of Designated Family Tool Grinding Technician: Julianne Bravo sibling I left a HIPPA compliant message at the number listed above Family Tool Grinding Technician Updated on the Following: N/A Xangati 07-18-2023 Note Formatting of this n ote might be different from the original. Family Communication Number Called: [phone] Name of Designated Family Tool Grinding Technician: Julianne Bravo sibling I left a HIPPA compliant message at the number listed above Family Tool Grinding Technician Updated on the Following: N/A Xangati 07-18-2023 Note Formatting of this n ote is different from the original. Images from the original note were not included. Care Management Progress Note Patient remains on 4S for Decreased ADLs Clinical updates: Now testing pos for Influenza A. SNF is unable to accept until she tests neg, on Tamiflu x 5 days, can't retest until she is off Tamiflu (false neg). Will need to re-submit for auth once neg for Flu A [facility] obstacles: Awaiting clinical stability TCC will continue to follow. Discharge Milestones and Delays Expected Date/Time: 07/22/[address] discharge order Complete med reconciliation Case mgmt discharge readiness Clinical Stability Diagnsotic Workup Expected Discharge History Expected Date/Time Set By Reviewed At 07/22/2023 Claudia Lyman RN 07/18/2023 8:07 AM Tamiflu x 5 days Can't go to SNF until Flu A neg Need auth" 07/18/2023 CASS Hanson 07/17/2023 10:14 AM Now Flu A + Auth approved for [facility]" 07/17/2023 Claudia Lyman RN 07/17/2023 8:14 AM 07/17/2023 CASS Hanson 07/16/2023 9:59 AM AUTH PENDING FOR [facility]" 07/16/2023 Ghazal Gambino RN 07/16/2023 9:03 AM Ghazal Gambino RN 07/16/2023 9:02 AM 07/16/2023 Ghazal Gambino RN 07/15/2023 8:27 AM need snf choices from family, facility and auth." 07/15/2023 Ghazal Gambino RN 07/14/2023 8:37 AM geriatrics consult pending. snf 07/13/2023 Thomas Nicole DO 07/11/2023 9:09 PM 07/13/2023 Thomas Nicole DO 07/11/2023 6:53 PM Length of Stay (Days): 7 GMLOS: 2.6 [facility] 07-18-2023 Note Formatting of this n ote is different from the original. Images from the original note were not included. Care Management Progress Note Patient remains on 4S for Decreased ADLs Clinical updates: Now testing pos for Influenza A. SNF is unable to accept until she tests neg, on Tamiflu x 5 days, can't retest until she is off Tamiflu (false neg). Will need to re-submit for auth once neg for Flu A Discharge plan: [facility] Discharge obstacles: Awaiting clinical stability TCC will continue to follow. Discharge Milestones and Delays Expected Date/Time: 07/22/[address] discharge order Complete med reconciliation Case mgmt discharge readiness Clinical Stability Diagnsotic Workup Expected Discharge History Expected Date/Time Set By Reviewed At 07/22/2023 Claudia Lyman RN 07/18/2023 8:07 AM Tamiflu x 5 days Can't go to SNF until Flu A neg Need auth" 07/18/2023 CASS Hanson 07/17/2023 10:14 AM Now Flu A + Auth approved for [facility]" 07/17/2023 Claudia Lyman RN 07/17/2023 8:14 AM 07/17/2023 CASS Hanson 07/16/2023 9:59 AM AUTH PENDING FOR [facility]" 07/16/2023 Ghazal Gambino RN 07/16/2023 9:03 AM Ghazal Gambino RN 07/16/2023 9:02 AM 07/16/2023 Ghazal Gambino RN 07/15/2023 8:27 AM need snf choices from family, facility and auth." 07/15/2023 Ghazal Gambino, MITA 07/14/2023 8:37 AM geriatrics consult pending. snf 07/13/2023 Thomas Nicole DO 07/11/2023 9:09 PM 07/13/2023 Thomas Nicole DO 07/11/2023 6:53 PM Length of Stay (Days): 7 GMLOS: 2.6 [facility] 07-16-2023 Note Formatting of this n ote might be different from the original. S/W, HCPOA I did visit patient in room along with TCC to complete HCPOA paperwork. The patient noted at this time there is noone she would name as a HCPOA as she does not trust anyone and felt this would give " them permission to kill me." I did attempt to explain HCPOA further to patient and she still insisted she would not name anyone HCPOA. Confusion present. I did inform creative consultant who stated the patient has been confused today. [facility] 07-16-2023 Note Formatting of this n ote might be different from the original. S/W, HCPOA I did visit patient in room along with TCC to complete HCPOA paperwork. The patient noted at this time there is noone she would name as a HCPOA as she does not trust anyone and felt this would give " them permission to kill me." I did attempt to explain HCPOA further to patient and she still insisted she would not name anyone HCPOA. Confusion present. I did inform creative consultant who stated the patient has been confused today. [facility] 07-16-2023 Note Formatting of this n ote might be different from the original. Did update [facility] that don't anticipate discharge today... [facility] 07-16-2023 Note Formatting of this n ote might be different from the original. Did update [facility] that don't anticipate discharge today... [facility] 07-16-2023 Note Formatting of this n ote might be different from the original. Authorization for [facility] received. Updated attending and await if patient is able to discharge today. . [facility] 07-16-2023 Note Formatting of this n ote might be different from the original. Authorization for [facility] received. Updated attending and await if patient is able to discharge today. . [facility] 07-16-2023 Note Formatting of this n ote might be different from the original. Did update patient that are awaiting auth for [facility]. Patient is requiring oxygen at 2 liters this morning. Ivf dc'd and cxr this morning. Will update attending once auth received. . [facility] 07-16-2023 Note Formatting of this n ote might be different from the original. Did update patient that are awaiting auth for [facility]. Patient is requiring oxygen at 2 liters this morning. Ivf dc'd and cxr this morning. Will update attending once auth received. . [facility] 07-16-2023 Hospital Discharge instructions Maryellen Henriquez LPN - 07/16/2023 8:23 AM EST Continuity of Care Form Patient Name: Yelena Chandra : 1935 Admit date: 07/11/2023 Discharge date: [id number] Code Status Order: DNR-CCA Advance Directives: N Admitting Physician: Nicole Lombardi MD PCP: Yenifer Schulz DO Discharging Nurse: Adi Henriquez LPN Discharging Hospital Unit/Room#: B4-454/B4-454 B Discharging Unit Phone Number: [phone] Emergency Contact: Extended Emergency Contact Information Primary Emergency Contact: Julianne Bravo Mobile Relation: Sister Preferred language: [place] [employer] Assistant needed? No Past Surgical History: Past Surgical History: Procedure Laterality Date DILATION AND CURETTAGE OF UTERUS HYSTERECTOMY TONSILLECTOMY AND ADENOIDECTOMY (HISTORICAL) Immunization History: Immunization History Administered Date(s) Administered Pfizer SARS-CoV-2 Vaccination 01/22/2021 Active Problems: Medical Problems Problem List * (Principal) Decreased activities of daily living (ADL) Dyspnea Moderate malnutrition (CMS/HCC) (HCC) (Chronic) Arthritis of knee Isolation/Infection: No active isolations No active infections Nurse Assessment: Last Vital Signs: BP 126/71 (BP Location: Left arm, Patient Position: Sitting) Pulse 72 Temp 36 C (96.8 F) (Temporal) Resp 16 Ht 1.626 m (5' 4") Wt 68.5 kg (151 lb) SpO2 94% BMI 25.92 kg/m Last documented pain score (0-10 scale): Last Weight: Wt Readings from Last 1 Encounters: 07/14/23 68.5 kg (151 lb) Mental Status: JEFFERSON Patient Mental Status: oriented and alert IV Access: JEFFERSON IV Access: None Nursing Mobility/ADLs: Walking Minimal assistance Transfer Minimal assistance Bathing Minimal assistance Dressing Minimal assistance Toileting Minimal assistance Feeding Independent Terrazzo Journeyman Minimal assistance Med Delivery yes Wound Care Documentation and Therapy: Elimination: Continence: Bowel: no Bladder: no Urinary Catheter: None Colostomy/Ileostomy/Ileal Conduit: None Date of Last BM: 07/17/2023 No intake or output data in the 24 hours ending 07/16/23 0821 No intake/output data recorded. Safety Concerns: at risk for falls Impairments/Disabilities: hearing Nutrition Therapy: Current Nutrition Therapy: Oral diet: dysphagia 2 mechanically altered Routes of Feeding: oral Liquids: no restrictions Daily Fluid Restriction: no Last Modified Barium Swallow with Video (Video Swallowing Test): not done Treatments at the Time of Hospital Discharge: Respiratory Treatments: NA Oxygen Therapy: is on oxygen at 3 L/min per nasal cannula. Ventilator: No ventilator support Rehab Therapies: physical therapy, occupational therapy, speech therapy, nursing, and aide Weight Bearing Status/Restrictions: no restriction Other Medical Equipment (for information only, NOT a DME order): walker Other Treatments: NA Patient's personal belongings (please select all that are sent with patient): none RN SIGNATURE: MANAGEMENT/SOCIAL WORK SECTION Inpatient Status Date: Readmission Risk Assessment Score: @READMISSIONRISKDETAILS@ Discharging to Facility/ Agency Name: [facility] Address:[address] [place], [place] [address] Dialysis Facility (if applicable) Name: Address: Dialysis Schedule: Phone: Fax: Chief Architect/Remedial Project Manager signature: ICIAN SECTION Prognosis: fair Condition at Discharge: stable Rehab Potential (if transferring to Rehab): fair Recommended Labs or Other Treatments After Discharge: Physician Certification: I certify the above information and transfer of Yelena Chandra is necessary for the continuing treatment of the diagnosis listed and that she requires [facility]entiary facility for less than 30 days. Update Admission H&P: Recommend Soft and bite-sized solids and Thin liquids and meds crushed in puree and the following precautions: - Upright positioning for all PO intake - Slow rate of intake - Small bites/sips - Alternate solid and liquids Pt would benefit from skilled acute GAS COMPRESSOR TURBINE OPERATOR services to address assess diet tolerance. PHYSICIAN SIGNATURE: documented in this encounter [facility] 07-16-2023 Note Formatting of this n ote is different from the original. Images from the original note were not included. Care Management Progress Note Updated ACADEMIC AFFAIRS SPECIALIST to submit [facility] for [facility] [place]. Await auth for [facility]. Will update attending once auth received. Anticipate discharge today. Will need JEFFERSON completed to submit 7000 . Discharge Milestones and Delays Expected Date/Time: 07/16/[address] discharge order Complete med reconciliation Case mgmt discharge readiness Clinical Stability Diagnsotic Workup Expected Discharge History Expected Date/Time Set By Reviewed At 07/16/2023 Ghazal Gambino RN 07/15/2023 8:27 AM need snf choices from family, facility and auth." 07/15/2023 Ghazal Gambino RN 07/14/2023 8:37 AM geriatrics consult pending. snf 07/13/2023 Thomas Nicole DO 07/11/2023 9:09 PM 07/13/2023 Thomas Nicole, DO 07/11/2023 6:53 PM Length of Stay (Days): 5 GMLOS: 2.6 [facility] 07-16-2023 Note Formatting of this n ote is different from the original. Images from the original note were not included. Care Management Progress Note Updated ACADEMIC AFFAIRS SPECIALIST to submit [facility]. Await auth for [facility]. Will update attending once auth received. Anticipate discharge today. Will need JEFFERSON completed to submit 7000 . Discharge Milestones and Delays Expected Date/Time: 07/16/[address] discharge order Complete med reconciliation Case mgmt discharge readiness Clinical Stability Diagnsotic Workup Expected Discharge History Expected Date/Time Set By Reviewed At 07/16/2023 Ghazal Gambino RN 07/15/2023 8:27 AM need snf choices from family, facility and auth." 07/15/2023 Ghazal Gambino RN 07/14/2023 8:37 AM geriatrics consult pending. snf 07/13/2023 Thomas Nicole, DO 07/11/2023 9:09 PM 07/13/2023 Thomas Nicole, DO 07/11/2023 6:53 PM Length of Stay (Days): 5 GMLOS: 2.6 [facility] 07-15-2023 Note Formatting of this n ote might be different from the original. Per Nadeem perry is unable to accept. Await reply from [facility]. [facility] 07-15-2023 Note Formatting of this n ote might be different from the original. Per Nadeem perry is unable to accept. Await reply from [facility]. [facility] 07-15-2023 Note Formatting of this n ote might be different from the original. Referral placed to [facility] via [facility] per TCC request. Await review and response regarding ability to accept. TCC notified. [facility] 07-15-2023 Note Formatting of this n ote might be different from the original. Referral placed to [facility] via [facility] per TCC request. Await review and response regarding ability to accept. TCC notified. [facility] 07-15-2023 Note Formatting of this n ote might be different from the original. Called and spoke with patient's sister Julianne and tasked [facility] to place referrals to [facility] and [facility]. Did update facilities, patient will be ready for discharge as soon as auth received. . [facility] 07-15-2023 Note Formatting of this n ote might be different from the original. Called and spoke with patient's sister Julianne and tasked [facility] to place referrals to [facility] and [facility]. Did update facilities, patient will be ready for discharge as soon as auth received. . [facility] 07-15-2023 Note Formatting of this n ote might be different from the original. SW consult for discharge planning. Reviewed chart. TCC assisting patient and family with SNF placement. HCPOA is needing completed. Will do this today with patient. Will follow. [facility] 07-15-2023 Note Formatting of this n ote might be different from the original. SW consult for discharge planning. Reviewed chart. TCC assisting patient and family with SNF placement. HCPOA is needing completed. Will do this today with patient. Will follow. [facility] 07-15-2023 Note Formatting of this n ote might be different from the original. Spoke with patient at bedside and she could not remember making any snf choices with her sister yesterday. Will need to call sister a little later this morning to obtain choices.. [facility] 07-15-2023 Note Formatting of this n ote might be different from the original. Spoke with patient at bedside and she could not remember making any snf choices with her sister yesterday. Will need to call sister a little later this morning to obtain choices.. [facility] 07-15-2023 Note Formatting of this n ote is different from the original. Images from the original note were not included. Care Management Progress Note Await SNF choices from patient and her sister and will submit for auth once have accepting facility. gas worker and TCC will attempt to complete HCPOA paperwork today... Discharge Milestones and Delays Expected Date/Time: 07/15/[address] discharge order Complete med reconciliation Case mgmt discharge readiness Clinical Stability Diagnsotic Workup Expected Discharge History Expected Date/Time Set By Reviewed At 07/15/2023 Ghazal Gambino RN 07/14/2023 8:37 AM geriatrics consult pending. snf 07/13/2023 Thomas NicoleDO 07/11/2023 9:09 PM 07/13/2023 Thomas Nicole DO 07/11/2023 6:53 PM Length of Stay (Days): 4 GMLOS: 2.6 [facility] 07-15-2023 Note Formatting of this n ote is different from the original. Images from the original note were not included. Care Management Progress Note Await SNF choices from patient and her sister and will submit for auth once have accepting facility. gas worker and TCC will attempt to complete HCPOA paperwork today... Discharge Milestones and Delays Expected Date/Time: 07/15/[address] discharge order Complete med reconciliation Case mgmt discharge readiness Clinical Stability Diagnsotic Workup Expected Discharge History Expected Date/Time Set By Reviewed At 07/15/2023 Ghazal Gambino RN 07/14/2023 8:37 AM geriatrics consult pending. snf 07/13/2023 Thomas NicoleDO 07/11/2023 9:09 PM 07/13/2023 Thomas NicoleDO 07/11/2023 6:53 PM Length of Stay (Days): 4 GMLOS: 2.6 [facility] 07-14-2023 Note Formatting of this n ote might be different from the original. Did speak with both patient and her sister both agreeable to SNF. List of in network facilities printed and reviewed and left at bedside for them to review and call TCC with choices. Will need accepting facility and insurance auth prior to discharge. . [facility] 07-14-2023 Note Formatting of this n ote might be different from the original. Did speak with both patient and her sister both agreeable to SNF. List of in network facilities printed and reviewed and left at bedside for them to review and call TCC with choices. Will need accepting facility and insurance auth prior to discharge. . [facility] 07-14-2023 Consult note Associated Order (s): IP CONSULT TO GERIATRICS [facility] Geriatric Medicine Inpatient Consult Service Admission Date: 07/11/2023 Admission Status: INPATIENT Chief Complaint: "not normal" Reason for Appointment Geriatrics consulted for "failure to thrive " Assessment & Plan Principal Problem: Decreased activities of daily living (ADL) Active Problems: Moderate malnutrition (CMS/HCC) (HCC) Fall -Multiple risk factors including decrease PO intake, weakness, cognitive deficits, and possible medication side effect -per sisterJulianne-patient had one fall about a year ago, fell off the toilet and then prior to this ED visit, patient was too weak to ambulate and had to sit down on the floor -Continue PT/OT as able while inpatient -Vitamin D Will check -Check orthostatic vital signs as able -Medications with associated fall risk include: Paxil Cognitive deficits: -MMSE today -Clock Drawing Test: Correct Elements (1 pt each): Numbers 1-12 only included, Numbers are drawn inside the clock resighini, and hour hand points to correct number Total Score 3/7 Time Instructions: Two thirty-five Scores < 5 out of 7 correlate with significantly more driving errors J [employer] Business Partner Med 2005; 20:[id number] -recommend follow up with [facility] in 4 weeks post discharge to home for further cognitive testing -sister has noted short term memory loss recently Depression/anxiety: -patient is on Paxil 20mg daily, per sister has been on it for many years -sister denies patient being anxious at home, but more depressive symptoms-not wanting to get out of bed and decrease PO intake since patient's dog 4-5 months ago -patient denies any feeling sad/depressed/anxious/stressed today during exam -discussed with patient and her sister about weaning patient off Paxil due to anticholinergic effects and start Zoloft, both agree with medication change -decrease Paxil from 20 to 10mg daily times 3 days, then stop and start Zoloft 25mg daily times 7 days, then increase to Zoloft 50mg daily Decrease PO intake: -seen by speech therapy, okay for regular diet, thin liquids -pt reports her appetite is good, ate breakfast this AM -per sister, appetite has been poor for the past 4-5 months -per EPIC review, patient has had approximately 38 pound weight loss in past 11 months -encourage PO intake -slab worker following, supplements started Declining functional status --Related to debility, decrease PO intake, depression/anxiety --Continue PT/OT as able while inpatient --Anticipate d/c to SNF for ongoing daily PT/OT --Discussed with patient and her sisterJulianne via phone today, both agreeable to SNF I spent total time of 90 minutes face to face with the patient and/or family discussing the diagnosis and importance of compliance with the treatment plan as well as documenting on the day of the visit. In addition, that total time includes the following: -Reviewing previous notes, -Reviewing labs, -Obtaining and/or reviewing separately obtained history, -Ordering prescription medications, tests and procedures, -Communicating results to the patient/family/caregiver, -Counseling/educating the patient/family/caregiver, -Documenting clinical information in the patients electronic record, and -Performing a medically appropriate exam and/or evaluation Subjective: HPI 88 y.o. year-old female with pmhx of depression/anxiety, HTN, GERD presented [facility] ED on 07/11/23 after c/o feeling weaker and more "unwell" over the past few weeks, has not had an appetite. Currently, lives at home - has had several falls due to weakness - and was not able to walk from the bed to the couch today. Reviewed last progress notes. Patient noted to have FTT. Has a hx of anxiety, on Paxil. Delirium protocol started. Speech therapy consulted-okay for regular diet, thin liquids. PT: per therapy notes on 07/12-pt is ambulating 30 feet times 2 FWW min assist. Therapy recommending SNF. Per progress notes, patient is declining SNF, but family is agreeable to SNF. Discussed with patient's nurse-no disruptive behaviors or agitation noted. Patient is compliant with medications. Labs 07/14: Sodium 135, potassium 3.7, BUN 17, Creatinine 0.88 WBC 6.7, Hgb 10.3, Platelet 463 Labs 07/11: TSH 1.414 UA 07/12: Negative leukocytes, negative nitrates, few bacteria Discussion with patient: -Patient reports she was sent to the hospital because she did not feel like eating or getting up at home -Patient today reports she is feeling better, denies feeling sad or depressed. -She know some of medication she takes at home including "Paxil for nervousness." -She reports she has a chronic cough and SOB due to "drainage". -She states her appetite "not bad", hungry today. -She reports once in a "blue florian" she is forgetful. -She reports she lives with her sister and brother in law, still drive-drove last in May. -She states she uses a walker or cane at home. Conversation with caregiver: SisterJulianne via phone . -sister has noted patient has had decrease PO intake and decrease motivation to get out of bed for the past 4-5 months after her dog . 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 Advance Care Planning Healthcare Power of Cement Worker: No Financial Power of Cement Worker: No Living Will:No Code Status: DNR-CCA, code status changed today per palliative care Discussed and educated patient on HCPOA. Patient reports she would want her sister, Julianne to make decisions for her if she could not make her own decisions. She reports Julianne takes good care of her at home and she really does not have anyone else to help make decisions for her. No Known Allergies Current Facility-Administered Medications: acetaminophen (Tylenol) tablet 650 mg, 650 mg, Oral, q6h PRN, 650 mg at 07/13/23 0944 OR acetaminophen (Tylenol) suppository 650 mg, 650 mg, Rectal, q6h PRN, Nicole Lombardi MD amLODIPine (Norvasc) tablet 10 mg, 10 mg, Oral, Daily, Nicole Lombardi MD, 10 mg at 07/14/23936 aspirin EC tablet 81 mg, 81 mg, Oral, Daily, Nicole Lombardi MD, 81 mg at 07/14/23 09 enoxaparin (Lovenox) syringe 40 mg, 40 mg, SubCUTAneous, Daily, Nicole Lombardi MD, 40 mg at 07/14/23 0936 hydrALAZINE (Apresoline) tablet 50 mg, 50 mg, Oral, TID, Nicole Lombardi MD, 50 mg at 07/14/23936 metoprolol tartrate (Lopressor) tablet 100 mg, 100 mg, Oral, BID, Nicole Lombardi MD, 100 mg at 07/14/23936 ondansetron ODT (Zofran-ODT) disintegrating tablet 4 mg, 4 mg, Oral, q8h PRN OR ondansetron (Zofran) injection 4 mg, 4 mg, IntraVENous, q6h PRN, Nicole Lombardi MD pantoprazole (ProtoNix) EC tablet 40 mg, 40 mg, Oral, qAM AC, Nicole Lombardi MD, 40 mg at 07/14/23 0607 [START ON 07/15/2023] PARoxetine (Paxil) tablet 10 mg, 10 mg, Oral, q AM, GENEVA Garcia CNP polyethylene glycol (PEG) 3350 (Miralax) packet 17 g, 17 g, Oral, Daily PRN, Nicole Lombardi MD [START ON 07/18/2023] sertraline (Zoloft) tablet 25 mg, 25 mg, Oral, Daily, GENEVA Garcia CNP [START ON 07/25/2023] sertraline (Zoloft) tablet 50 mg, 50 mg, Oral, Daily, GENEVA Garcia CNP sodium chloride 0.9 % infusion, 100 mL/hr, IntraVENous, Continuous, Nicole Lombardi MD, Last Rate: 100 mL/hr at 07/14/23 1023, 100 mL/hr at 07/14/23 1023 Past Medical History: Diagnosis Date Anxiety Arthritis Hypertension Past Surgical History: Procedure Laterality Date DILATION AND CURETTAGE OF UTERUS HYSTERECTOMY TONSILLECTOMY AND ADENOIDECTOMY (HISTORICAL) Social History Tobacco Use Smoking status: Former Smokeless tobacco: Never Substance Use Topics Alcohol use: No Social History Social History Narrative Not on file Family History No family history on file. No family status information on file. Parents are Review of Systems Constitutional: Positive for activity change. HENT: Positive for postnasal drip. Respiratory: Positive for cough (chronic) and shortness of breath (chronic). Cardiovascular: Negative for chest pain and palpitations. Gastrointestinal: Negative for abdominal distention, abdominal pain, constipation (last BM 07/14) and diarrhea. Genitourinary: Negative for difficulty urinating and dysuria. Musculoskeletal: Positive for gait problem. Neurological: Negative for dizziness, light-headedness and headaches. Psychiatric/Behavioral: Positive for confusion. Functional Status Prior to Admission: (I: Independent, A: Assisted, D: Dependent) ADLs I A D Notes Bathing [x] [] [] Dressing [x] [] [] Toileting [x] [] [] Transfers [x] [] [] Feeding [x] [] [] Ambulation [] [x] [] Assistive devices: straight cane and wheeled walker IADLs I A D SisterJulianne helps with IADLs Telephone [x] [] [] Transportation [] [] [x] Shopping [] [] [x] Meal prep [] [] [x] Housework [] [] [x] Medications [] [] [x] Finances [] [] [x] Objective: BP 131/66 (BP Location: Left arm, Patient Position: Lying) Pulse 75 Temp 36.3 C (97.4 F) (Temporal) Resp 18 Ht 5' 4" (1.626 m) Wt 151 lb (68.5 kg) SpO2 96% BMI 25.92 kg/m Intake/Output Summary (Last 24 hours) at 07/14/2023 1242 Last data filed at 07/14/2023 0724 Gross per 24 hour Intake 240 ml Output -- Net 240 ml Wt Readings from Last 3 Encounters: 07/14/23 151 lb (68.5 kg) 08/01/22 183 lb (83 kg) Physical Exam Constitutional: General: She is not in acute distress. Appearance: She is not ill-appearing or toxic-appearing. Comments: Pleasant female sitting up in bed, on RA, NAD HENT: Right Ear: External ear normal. Left Ear: External ear normal. Nose: Nose normal. No congestion. Mouth/Throat: Mouth: Mucous membranes are moist. Pharynx: Oropharynx is clear. Eyes: General: Right eye: No discharge. Left eye: No discharge. Conjunctiva/sclera: Conjunctivae normal. Cardiovascular: Rate and Rhythm: Normal rate and regular rhythm. Pulmonary: Effort: Pulmonary effort is normal. No respiratory distress. Breath sounds: Rhonchi (posterior clears with cough) present. No wheezing or rales. Abdominal: General: Bowel sounds are normal. There is no distension. Palpations: Abdomen is soft. Tenderness: There is no abdominal tenderness. There is no guarding. Musculoskeletal: General: Normal range of motion. Cervical back: Normal range of motion. Right lower leg: No edema. Left lower leg: No edema. Skin: General: Skin is warm and dry. Neurological: Mental Status: She is alert and oriented to person, place, and time. Comments: Forgetful at times Psychiatric: Mood and Affect: Mood normal. Behavior: Behavior normal. Mini-Mental Status Exam: 2430 deficits in recall 0/3; attention and calculation 3/5; orientation 9/10 Labs and Imaging: Recent Results (from the past 24 hour(s)) CBC auto differential Collection Time: 07/14/23 3:11 AM Result Value Ref Range Auto WBC 6.7 3.6 - 10.7 10*3/uL RBC 3.78 (L) 3.8 - 5.20 10*6/uL Hemoglobin 10.3 (L) 11.7 - 16.0 g/dL Hematocrit 31.0 (L) 35.0 - 47.0 % MCV 82.0 80.0 - 98.0 fL MCH 27.3 26.0 - 34.0 pg MCHC 33.3 32.0 - 36.0 % RDW 14.6 (H) 11.5 - 14.5 % Platelets 463 (H) 140 - 440 10*3/uL MPV 7.5 7.4 - 12.4 fL nRBC 0.0 0.0 - 2.0 /100 WBCs Neutrophils Relative 81.3 (H) 40.0 - 80.0 % Lymphocytes Relative 10.4 (L) 20.0 - 40.0 % Monocytes Relative 3.9 2.0 - 10.0 % Eosinophils Relative 3.5 1.0 - 6.0 % Basophils Relative 0.9 0.0 - 2.0 % Neutrophils Absolute 5.5 1.8 - 7.0 10*3/uL Lymphocytes Absolute 0.7 (L) 1.0 - 4.3 10*3/uL Monocytes Absolute 0.3 0.0 - 0.8 10*3/uL Eosinophils Absolute 0.2 0.0 - 0.5 10*3/uL Basophils Absolute 0.1 0.0 - 0.2 10*3/uL Basic metabolic panel Collection Time: 07/14/23 3:11 AM Result Value Ref Range SODIUM 135 135 - 145 mmol/L POTASSIUM 3.7 3.5 - 5.1 mmol/L CHLORIDE 109 (H) 98 - 107 mmol/L CARBON DIOXIDE 21 (L) 22 - 30 mmol/L UREA NITROGEN 17 7 - 17 mg/dL CREATININE 0.88 0.52 - 1.04 mg/dL GLUCOSE 112 (H) 70 - 100 mg/dL CALCIUM 8.0 (L) 8.4 - 10.4 mg/dL ANION GAP 5 3 - 13 mmol/L eGFR 64.1 >60.0 mL/min/1.73m*2 Lab Results Component Value Date TSH 1.414 07/11/2023 No components found for: "B12" Lab Results Component Value Date VITD25 27 (L) 06/19/2021 Reviewed: active problem list, medication list, allergies, notes from last encounter, lab results Follow-up: will follow with you NUZHAT OROZCO, GENEVA - DILEEP 07/14/23 12:42 PM [facility] 07-14-2023 Consult note Associated Order (s): IP CONSULT TO GERIATRICS [facility] Geriatric Medicine Inpatient Consult Service Admission Date: 07/11/2023 Admission Status: INPATIENT Chief Complaint: "not normal" Reason for Appointment Geriatrics consulted for "failure to thrive " Assessment & Plan Principal Problem: Decreased activities of daily living (ADL) Active Problems: Moderate malnutrition (CMS/HCC) (HCC) Fall -Multiple risk factors including decrease PO intake, weakness, cognitive deficits, and possible medication side effect -per sisterJulianne-patient had one fall about a year ago, fell off the toilet and then prior to this ED visit, patient was too weak to ambulate and had to sit down on the floor -Continue PT/OT as able while inpatient -Vitamin D Will check -Check orthostatic vital signs as able -Medications with associated fall risk include: Paxil Cognitive deficits: -MMSE today -Clock Drawing Test: Correct Elements (1 pt each): Numbers 1-12 only included, Numbers are drawn inside the clock resighini, and hour hand points to correct number Total Score 3/7 Time Instructions: Two thirty-five Scores < 5 out of 7 correlate with significantly more driving errors J Gen [employer] Med 2005; [id number] -recommend follow up with [facility] in 4 weeks post discharge to home for further cognitive testing -sister has noted short term memory loss recently Depression/anxiety: -patient is on Paxil 20mg daily, per sister has been on it for many years -sister denies patient being anxious at home, but more depressive symptoms-not wanting to get out of bed and decrease PO intake since patient's dog 4-5 months ago -patient denies any feeling sad/depressed/anxious/stressed today during exam -discussed with patient and her sister about weaning patient off Paxil due to anticholinergic effects and start Zoloft, both agree with medication change -decrease Paxil from 20 to 10mg daily times 3 days, then stop and start Zoloft 25mg daily times 7 days, then increase to Zoloft 50mg daily Decrease PO intake: -seen by speech therapy, okay for regular diet, thin liquids -pt reports her appetite is good, ate breakfast this AM -per sister, appetite has been poor for the past 4-5 months -per EPIC review, patient has had approximately 38 pound weight loss in past 11 months -encourage PO intake -slab worker following, supplements started Declining functional status --Related to debility, decrease PO intake, depression/anxiety --Continue PT/OT as able while inpatient --Anticipate d/c to SNF for ongoing daily PT/OT --Discussed with patient and her sister, Julianne via phone today, both agreeable to SNF I spent total time of 90 minutes face to face with the patient and/or family discussing the diagnosis and importance of compliance with the treatment plan as well as documenting on the day of the visit. In addition, that total time includes the following: -Reviewing previous notes, -Reviewing labs, -Obtaining and/or reviewing separately obtained history, -Ordering prescription medications, tests and procedures, -Communicating results to the patient/family/caregiver, -Counseling/educating the patient/family/caregiver, -Documenting clinical information in the patients electronic record, and -Performing a medically appropriate exam and/or evaluation Subjective: HPI 88 y.o. year-old female with pmhx of depression/anxiety, HTN, GERD presented [facility] ED on 07/11/23 after c/o feeling weaker and more "unwell" over the past few weeks, has not had an appetite. Currently, lives at home - has had several falls due to weakness - and was not able to walk from the bed to the couch today. Reviewed last progress notes. Patient noted to have FTT. Has a hx of anxiety, on Paxil. Delirium protocol started. Speech therapy consulted-okay for regular diet, thin liquids. PT: per therapy notes on 07/12-pt is ambulating 30 feet times 2 FWW min assist. Therapy recommending SNF. Per progress notes, patient is declining SNF, but family is agreeable to SNF. Discussed with patient's nurse-no disruptive behaviors or agitation noted. Patient is compliant with medications. Labs 07/14: Sodium 135, potassium 3.7, BUN 17, Creatinine 0.88 WBC 6.7, Hgb 10.3, Platelet 463 Labs 07/11: TSH 1.414 UA 07/12: Negative leukocytes, negative nitrates, few bacteria Discussion with patient: -Patient reports she was sent to the hospital because she did not feel like eating or getting up at home -Patient today reports she is feeling better, denies feeling sad or depressed. -She know some of medication she takes at home including "Paxil for nervousness." -She reports she has a chronic cough and SOB due to "drainage". -She states her appetite "not bad", hungry today. -She reports once in a "blue florian" she is forgetful. -She reports she lives with her sister and brother in law, still drive-drove last in May. -She states she uses a walker or cane at home. Conversation with caregiver: SisterJulianne via phone . -sister has noted patient has had decrease PO intake and decrease motivation to get out of bed for the past 4-5 months after her dog . 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 Advance Care Planning Healthcare Power of Cement Worker: No Financial Power of Cement Worker: No Living Will:No Code Status: DNR-CCA, code status changed today per palliative care Discussed and educated patient on HCPOA. Patient reports she would want her sister, Julianne to make decisions for her if she could not make her own decisions. She reports Julianne takes good care of her at home and she really does not have anyone else to help make decisions for her. No Known Allergies Current Facility-Administered Medications: acetaminophen (Tylenol) tablet 650 mg, 650 mg, Oral, q6h PRN, 650 mg at 07/13/23 0944 OR acetaminophen (Tylenol) suppository 650 mg, 650 mg, Rectal, q6h PRN, Nicole Lombardi MD amLODIPine (Norvasc) tablet 10 mg, 10 mg, Oral, Daily, Nicole Lombardi MD, 10 mg at 07/14/23 0937 aspirin EC tablet 81 mg, 81 mg, Oral, Daily, Nicole Lombardi MD, 81 mg at 07/14/23 0937 enoxaparin (Lovenox) syringe 40 mg, 40 mg, SubCUTAneous, Daily, Nicole Lombardi MD, 40 mg at 07/14/23 0936 hydrALAZINE (Apresoline) tablet 50 mg, 50 mg, Oral, TID, Nicole Lombardi MD, 50 mg at 07/14/23 0937 metoprolol tartrate (Lopressor) tablet 100 mg, 100 mg, Oral, BID, Nicole Lombardi MD, 100 mg at 07/14/23 0937 ondansetron ODT (Zofran-ODT) disintegrating tablet 4 mg, 4 mg, Oral, q8h PRN OR ondansetron (Zofran) injection 4 mg, 4 mg, IntraVENous, q6h PRN, Nicole Lombardi MD pantoprazole (ProtoNix) EC tablet 40 mg, 40 mg, Oral, qAM AC, Nicole Lombardi MD, 40 mg at 07/14/23 0607 [START ON 07/15/2023] PARoxetine (Paxil) tablet 10 mg, 10 mg, Oral, q AM, GENEVA Garcia CNP polyethylene glycol (PEG) 3350 (Miralax) packet 17 g, 17 g, Oral, Daily PRN, Nicole Lombardi MD [START ON 07/18/2023] sertraline (Zoloft) tablet 25 mg, 25 mg, Oral, Daily, GENEVA Garcia CNP [START ON 07/25/2023] sertraline (Zoloft) tablet 50 mg, 50 mg, Oral, Daily, GENEVA Garcia CNP sodium chloride 0.9 % infusion, 100 mL/hr, IntraVENous, Continuous, Nicole Lombardi MD, Last Rate: 100 mL/hr at 07/14/23 1023, 100 mL/hr at 07/14/23 1023 Past Medical History: Diagnosis Date Anxiety Arthritis Hypertension Past Surgical History: Procedure Laterality Date DILATION AND CURETTAGE OF UTERUS HYSTERECTOMY TONSILLECTOMY AND ADENOIDECTOMY (HISTORICAL) Social History Tobacco Use Smoking status: Former Smokeless tobacco: Never Substance Use Topics Alcohol use: No Social History Social History Narrative Not on file Family History No family history on file. No family status information on file. Parents are Review of Systems Constitutional: Positive for activity change. HENT: Positive for postnasal drip. Respiratory: Positive for cough (chronic) and shortness of breath (chronic). Cardiovascular: Negative for chest pain and palpitations. Gastrointestinal: Negative for abdominal distention, abdominal pain, constipation (last BM 07/14) and diarrhea. Genitourinary: Negative for difficulty urinating and dysuria. Musculoskeletal: Positive for gait problem. Neurological: Negative for dizziness, light-headedness and headaches. Psychiatric/Behavioral: Positive for confusion. Functional Status Prior to Admission: (I: Independent, A: Assisted, D: Dependent) ADLs I A D Notes Bathing [x] [] [] Dressing [x] [] [] Toileting [x] [] [] Transfers [x] [] [] Feeding [x] [] [] Ambulation [] [x] [] Assistive devices: straight cane and wheeled walker IADLs I A D SisterJulianne helps with IADLs Telephone [x] [] [] Transportation [] [] [x] Shopping [] [] [x] Meal prep [] [] [x] Housework [] [] [x] Medications [] [] [x] Finances [] [] [x] Objective: BP 131/66 (BP Location: Left arm, Patient Position: Lying) Pulse 75 Temp 36.3 C (97.4 F) (Temporal) Resp 18 Ht 5' 4" (1.626 m) Wt 151 lb (68.5 kg) SpO2 96% BMI 25.92 kg/m Intake/Output Summary (Last 24 hours) at 07/14/2023 1242 Last data filed at 07/14/2023 0724 Gross per 24 hour Intake 240 ml Output -- Net 240 ml Wt Readings from Last 3 Encounters: 07/14/23 151 lb (68.5 kg) 08/01/22 183 lb (83 kg) Physical Exam Constitutional: General: She is not in acute distress. Appearance: She is not ill-appearing or toxic-appearing. Comments: Pleasant female sitting up in bed, on RA, NAD HENT: Right Ear: External ear normal. Left Ear: External ear normal. Nose: Nose normal. No congestion. Mouth/Throat: Mouth: Mucous membranes are moist. Pharynx: Oropharynx is clear. Eyes: General: Right eye: No discharge. Left eye: No discharge. Conjunctiva/sclera: Conjunctivae normal. Cardiovascular: Rate and Rhythm: Normal rate and regular rhythm. Pulmonary: Effort: Pulmonary effort is normal. No respiratory distress. Breath sounds: Rhonchi (posterior clears with cough) present. No wheezing or rales. Abdominal: General: Bowel sounds are normal. There is no distension. Palpations: Abdomen is soft. Tenderness: There is no abdominal tenderness. There is no guarding. Musculoskeletal: General: Normal range of motion. Cervical back: Normal range of motion. Right lower leg: No edema. Left lower leg: No edema. Skin: General: Skin is warm and dry. Neurological: Mental Status: She is alert and oriented to person, place, and time. Comments: Forgetful at times Psychiatric: Mood and Affect: Mood normal. Behavior: Behavior normal. Mini-Mental Status Exam: deficits in recall 0/3; attention and calculation 3/5; orientation 9/10 Labs and Imaging: Recent Results (from the past 24 hour(s)) CBC auto differential Collection Time: 07/14/23 3:11 AM Result Value Ref Range Auto WBC 6.7 3.6 - 10.7 10*3/uL RBC 3.78 (L) 3.8 - 5.20 10*6/uL Hemoglobin 10.3 (L) 11.7 - 16.0 g/dL Hematocrit 31.0 (L) 35.0 - 47.0 % MCV 82.0 80.0 - 98.0 fL MCH 27.3 26.0 - 34.0 pg MCHC 33.3 32.0 - 36.0 % RDW 14.6 (H) 11.5 - 14.5 % Platelets 463 (H) 140 - 440 10*3/uL MPV 7.5 7.4 - 12.4 fL nRBC 0.0 0.0 - 2.0 /100 WBCs Neutrophils Relative 81.3 (H) 40.0 - 80.0 % Lymphocytes Relative 10.4 (L) 20.0 - 40.0 % Monocytes Relative 3.9 2.0 - 10.0 % Eosinophils Relative 3.5 1.0 - 6.0 % Basophils Relative 0.9 0.0 - 2.0 % Neutrophils Absolute 5.5 1.8 - 7.0 10*3/uL Lymphocytes Absolute 0.7 (L) 1.0 - 4.3 10*3/uL Monocytes Absolute 0.3 0.0 - 0.8 10*3/uL Eosinophils Absolute 0.2 0.0 - 0.5 10*3/uL Basophils Absolute 0.1 0.0 - 0.2 10*3/uL Basic metabolic panel Collection Time: 07/14/23 3:11 AM Result Value Ref Range SODIUM 135 135 - 145 mmol/L POTASSIUM 3.7 3.5 - 5.1 mmol/L CHLORIDE 109 (H) 98 - 107 mmol/L CARBON DIOXIDE 21 (L) 22 - 30 mmol/L UREA NITROGEN 17 7 - 17 mg/dL CREATININE 0.88 0.52 - 1.04 mg/dL GLUCOSE 112 (H) 70 - 100 mg/dL CALCIUM 8.0 (L) 8.4 - 10.4 mg/dL ANION GAP 5 3 - 13 mmol/L eGFR 64.1 >60.0 mL/min/1.73m*2 Lab Results Component Value Date TSH 1.414 07/11/2023 No components found for: "B12" Lab Results Component Value Date VITD25 27 (L) 06/19/2021 Reviewed: active problem list, medication list, allergies, notes from last encounter, lab results Follow-up: will follow with you NUZHAT OROZCO, GENEVA - RATE ENGINEER 07/14/23 12:42 PM Associated Order(s): IP CONSULT TO PALLIATIVE CARE Images from the original note were not included. Palliative Care Initial Consult Chief Complaint: Yelena Chandra is a 88 y.o. female with chief complaint of decreased intake and failure to thrive. To be seen 07/13/2023 Assessment/Plan Goals of care Pt is alert and oriented x 2-3, was not able to tell me the month or year today. Full code -care everywhere shows sister has been addressed and wishes for her to remain full code. Shares home with sister and brother in law and large dog named Napoleon. NOK sister Julianne Bravo [phone] When asked what brought her to the hospital she was not able to tell me anything more than " I dont know, I just didn't feel good". Reports now she is feeling back to her normal self. Goals are to improve appetite, SNF before returning home with sister and PATRICIA. Poor appetite Pt reports poor appetite for past weeks, but has picked up since in the hospital ST seen - recs for reg diet, no swallowing difficulties noted Reports no nausea, regular bowel movements Nursing communication to record all meal and snack percentages. 06/17/21 23:37:59 180 lb (81.6 kg) Admit weight 145 lbs. Has had modified barium swallow 08-10-22 with no dysphagia/aspiration noted. With her dementia would likely get her to eat more if family used smaller plates and cups. 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 No other FU seen in [facility] or care everywhere. Pt reports is not painful, sister states its the same size. Pt opted to not remove Dementia hx Is not on any medications, Not defined what type Is no longer driving (pt does report she does drive. None for 2 yrs per sister) Hx CKD stage III Estimated Creatinine Clearance: 36.6 mL/min (by C-G formula based on SCr of 1.03 mg/dL). Incontinence Wearing attends here, wears pull ups at home Tobacco use Pt reports she smokes occasionally - not daily Debility Reports frequent falls at home over the last few weeks PT/OT to evaluate and treat, recs for SNF on dc Uses walker in the home and community Palliative Care Encounter will continue to follow for ongoing monitoring of progression of Fatigue will continue to evaluate test results related to Dysphagia Total of 70 minutes spent on this encounter including Chart review, Patient visit and exam, Documentation in EHR, Care coordination, and Communicating with primary attending or other consultants. Discharge planning: Patient meets criteria for general inpatient hospice care including the following: N/A - Palliative Care Patient Referrals to: None Discussed patient and the plan of care with the other interdisciplinary team (IDT) members of Palliative Care Team, and with Patient and Floor Nurse I have discussed the patient's case and plan of care with my collaborating physician Dr. Pearce Subjective: Hospital days prior to consult: 1 Subjective/Events Yelena Chandra is a 88 y.o. female from home who presented to the ER with complaints of fatigue and not feeling well. Since admission she has been treated to correct potassium and magnesium as well as some rehydration. She has seen PT/OT/ST. Plans to have SNF for dc before returning back home. Medical history includes anxiety,arthritis, and HTN. Palliative medicine consulted for goals of care. Met with pt at bedside and introduced myself and my role in her care. Explained palliative medicine - not certain she truly understands this. I reached out to her sister to introduce myself and my role. She has been dx with dementia in past - not defined what type and is not on any medication. Sister reports some difficulty at home with her eating, showering ect. Gave some ideas on how to motivate her with not asking yes no questions when you know you will ge a no - saying to her " it time for bath, meal outing ect. She will likely get a better response and her be more willing. Also discussed her meal and fluid intake - using smaller cups and plates do not overwhelm the dementia brain and she will likely eat and drink more by using these smaller items and filling them frequently through the day to avoid UTI's and dehydration. Julianne appreciates the call and time we have spent on the conversation. Pain Assessment (If Pain Scale >0) No pain Goals of care:Support for Family/Caregiver and Continue Current Management Advance Directives: Full Code Surrogate: Extended Family Prognosis: unknown Spiritual assessment: No spiritual distress identified Bereavement and grief: Grief Issues Not Identified Past Medical History: Diagnosis Date Anxiety Arthritis Hypertension Past Surgical History: Procedure Laterality Date DILATION AND CURETTAGE OF UTERUS HYSTERECTOMY TONSILLECTOMY AND ADENOIDECTOMY (HISTORICAL) No family history on file. Unable to obtain family history due to N/A- family history available No Known Allergies Review of Systems ROS: See palliative care ROS/ESAS below; All other systems were reviewed and are negative. Dawson Symptom Assessment Score Dawson Score Pain Score 0 Tiredness Score 3 Nausea Score 0 Depression Score 0 Anxiety Score 0 Drowsiness Score 0 Anorexia Score (0= eating well, 10= not eating) 3-4 Wellbeing Score (10= worst sense of well-being) 2 Constipation 0 Dyspnea Score (0= no shortness of breath) 0 FLACC Scale (For Pain Assessment of the Non-Verbal Patient) Pt is verbal Assessed by: provider. 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 Discussion participants: pt, sister and provider Interventions reviewed: Resuscitation procedures (CPR) and Mechanical ventilator support Fully discussed full code and the potential complications with sister She wishes for a full code for now. Advance Care Planning Documents: Healthcare Power of Cement Worker: Not completed Financial Power of Cement Worker: Not completed Living Will: Not completed Code Status: Full Code Sister and brother are the legal decision makers. Pt has no children In addition to the time spent evaluating and managing the patient's medical diagnoses above, 15 minutes of this encounter was spent discussing advanced care planning documented above. Please bill [id number] for 16-46 minutes and add additional [phone] for >46 minutes. Family Meeting: Participants: none held Family meeting was held to discuss:N/A Objective: Physical Exam BP 111/58 (BP Location: Left arm, Patient Position: Lying) Pulse 68 Temp 36.8 C (98.2 F) (Temporal) Resp 16 Wt 145 lb (65.8 kg) SpO2 94% BMI 24.89 kg/m Physical Exam Current Medications: Inpatient medications reviewed: yes Home medications reviewed: yes OARRS Reviewed: reviewed, no prescriptions noted. 24 Hour PRN Meds: reviewed Results/Verification of Data Review Objective data reviewed (be specific which labs, imaging reports with dates reviewed): Reviewed all provider notes, labs, vitals and imaging from 07-11-23 to date. Data in Support of Terminal Illness: Is patient hospice appropriate? no Transition Note Initiated: yes. documented in this encounter [facility] 07-14-2023 Note Formatting of this n ote is different from the original. Images from the original note were not included. Care Management Progress Note Patient not wanting to discharge to snf, but family that cares for her is agreeable to SNF.. List of in network SNFs printed and will review with patient and family. Geriatrics consult is ordered and pending. Tentative discharge plan is snf. Will need accepting facility and insurance auth prior to discharge.. Discharge Milestones and Delays Expected Date/Time: 07/13/[address] discharge order Complete med reconciliation Case mgmt discharge readiness Clinical Stability Diagnsotic Workup Expected Discharge History Expected Date/Time Set By Reviewed At 07/13/2023 Thomasli NicoleDO 07/11/2023 9:09 PM 07/13/2023 Thomasli NicoleDO 07/11/2023 6:53 PM Length of Stay (Days): 3 GMLOS: No GMLOS Documented [facility] 07-14-2023 Note Formatting of this n ote is different from the original. Images from the original note were not included. Care Management Progress Note Patient not wanting to discharge to snf, but family that cares for her is agreeable to SNF.. List of in network SNFs printed and will review with patient and family. Geriatrics consult is ordered and pending. Tentative discharge plan is snf. Will need accepting facility and insurance auth prior to discharge.. Discharge Milestones and Delays Expected Date/Time: 07/13/[address] discharge order Complete med reconciliation Case mgmt discharge readiness Clinical Stability Diagnsotic Workup Expected Discharge History Expected Date/Time Set By Reviewed At 07/13/2023 Thomas CoreyDO stephanie 07/11/2023 9:09 PM 07/13/2023 Thomas DaleDO 07/11/2023 6:53 PM Length of Stay (Days): 3 GMLOS: No GMLOS Documented [facility] 07-13-2023 Note Formatting of this n ote might be different from the original. Mixer Machine Feeder following case for Discharge Needs. Unable to reach pt in room. Spoke with Julianne (sister) at [phone]. Julianne is in agreement with SNF. States pt is unable to take care of herself at home and is to weak to stand or sit . States poor appetite and would like to see pt get stronger before coming home [facility] 07-13-2023 Note Formatting of this n ote might be different from the original. Mixer Machine Feeder following case for Discharge Needs. Unable to reach pt in room. Spoke with Julianne (sister) at [phone]. Julianne is in agreement with SNF. States pt is unable to take care of herself at home and is to weak to stand or sit . States poor appetite and would like to see pt get stronger before coming home [facility] 07-13-2023 Consult note Associated Order (s): IP CONSULT TO PALLIATIVE CARE Images from the original note were not included. Palliative Care Initial Consult Chief Complaint: Yelena Chandra is a 88 y.o. female with chief complaint of decreased intake and failure to thrive. To be seen 07/13/2023 Assessment/Plan Goals of care Pt is alert and oriented x 2-3, was not able to tell me the month or year today. Full code -care everywhere shows sister has been addressed and wishes for her to remain full code. Shares home with sister and brother in law and large dog named Napoleon. NOK sister Julianne Bravo [phone] When asked what brought her to the hospital she was not able to tell me anything more than " I dont know, I just didn't feel good". Reports now she is feeling back to her normal self. Goals are to improve appetite, SNF before returning home with sister and PATRICIA. Poor appetite Pt reports poor appetite for past weeks, but has picked up since in the hospital [facility] for reg diet, no swallowing difficulties noted Reports no nausea, regular bowel movements Nursing communication to record all meal and snack percentages. 06/17/21 23:37:59 180 lb (81.6 kg) Admit weight 145 lbs. Has had modified barium swallow 08-10-22 with no dysphagia/aspiration noted. With her dementia would likely get her to eat more if family used smaller plates and cups. 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 No other FU seen in [facility] or care everywhere. Pt reports is not painful, sister states its the same size. Pt opted to not remove Dementia hx Is not on any medications, Not defined what type Is no longer driving (pt does report she does drive. None for 2 yrs per sister) Hx CKD stage III Estimated Creatinine Clearance: 36.6 mL/min (by C-G formula based on SCr of 1.03 mg/dL). Incontinence Wearing attends here, wears pull ups at home Tobacco use Pt reports she smokes occasionally - not daily Debility Reports frequent falls at home over the last few weeks PT/OT to evaluate and treat, recs for SNF on dc Uses walker in the home and community Palliative Care Encounter will continue to follow for ongoing monitoring of progression of Fatigue will continue to evaluate test results related to Dysphagia Total of 70 minutes spent on this encounter including Chart review, Patient visit and exam, Documentation in EHR, Care coordination, and Communicating with primary attending or other consultants. Discharge planning: Patient meets criteria for general inpatient hospice care including the following: N/A - Palliative Care Patient Referrals to: None Discussed patient and the plan of care with the other interdisciplinary team (IDT) members of Palliative Care Team, and with Patient and Floor Nurse I have discussed the patient's case and plan of care with my collaborating physician Dr. Pearce Subjective: Hospital days prior to consult: 1 Subjective/Events Yelena Chandra is a 88 y.o. female from home who presented to the ER with complaints of fatigue and not feeling well. Since admission she has been treated to correct potassium and magnesium as well as some rehydration. She has seen PT/OT/ST. Plans to have SNF for dc before returning back home. Medical history includes anxiety,arthritis, and HTN. Palliative medicine consulted for goals of care. Met with pt at bedside and introduced myself and my role in her care. Explained palliative medicine - not certain she truly understands this. I reached out to her sister to introduce myself and my role. She has been dx with dementia in past - not defined what type and is not on any medication. Sister reports some difficulty at home with her eating, showering ect. Gave some ideas on how to motivate her with not asking yes no questions when you know you will ge a no - saying to her " it time for bath, meal outing ect. She will likely get a better response and her be more willing. Also discussed her meal and fluid intake - using smaller cups and plates do not overwhelm the dementia brain and she will likely eat and drink more by using these smaller items and filling them frequently through the day to avoid UTI's and dehydration. Julianne appreciates the call and time we have spent on the conversation. Pain Assessment (If Pain Scale >0) No pain Goals of care:Support for Family/Caregiver and Continue Current Management Advance Directives: Full Code Surrogate: Extended Family Prognosis: unknown Spiritual assessment: No spiritual distress identified Bereavement and grief: Grief Issues Not Identified Past Medical History: Diagnosis Date Anxiety Arthritis Hypertension Past Surgical History: Procedure Laterality Date DILATION AND CURETTAGE OF UTERUS HYSTERECTOMY TONSILLECTOMY AND ADENOIDECTOMY (HISTORICAL) No family history on file. Unable to obtain family history due to N/A- family history available No Known Allergies Review of Systems ROS: See palliative care ROS/ESAS below; All other systems were reviewed and are negative. Dawson Symptom Assessment Score Dawson Score Pain Score 0 Tiredness Score 3 Nausea Score 0 Depression Score 0 Anxiety Score 0 Drowsiness Score 0 Anorexia Score (0= eating well, 10= not eating) 3-4 Wellbeing Score (10= worst sense of well-being) 2 Constipation 0 Dyspnea Score (0= no shortness of breath) 0 FLACC Scale (For Pain Assessment of the Non-Verbal Patient) Pt is verbal Assessed by: provider. Social history: status: no Marital status: Living status: with sister and PATRICIA Work history: retired, [employer] Advance Care Planning: The patient has capacity to make healthcare and advanced care planning decisions No The patient's identified surrogate decision maker is Extended Family. Discussion participants: pt, sister and provider Interventions reviewed: Resuscitation procedures (CPR) and Mechanical ventilator support Fully discussed full code and the potential complications with sister She wishes for a full code for now. Advance Care Planning Documents: Healthcare Power of Cement Worker: Not completed Financial Power of Cement Worker: Not completed Living Will: Not completed Code Status: Full Code Sister and brother are the legal decision makers. Pt has no children In addition to the time spent evaluating and managing the patient's medical diagnoses above, 15 minutes of this encounter was spent discussing advanced care planning documented above. Please bill [id number] for 16-46 minutes and add additional [id number] for >46 minutes. Family Meeting: Participants: none held Family meeting was held to discuss:N/A Objective: Physical Exam BP 111/58 (BP Location: Left arm, Patient Position: Lying) Pulse 68 Temp 36.8 C (98.2 F) (Temporal) Resp 16 Wt 145 lb (65.8 kg) SpO2 94% BMI 24.89 kg/m Physical Exam Current Medications: Inpatient medications reviewed: yes Home medications reviewed: yes OARRS Reviewed: reviewed, no prescriptions noted. 24 Hour PRN Meds: reviewed Results/Verification of Data Review Objective data reviewed (be specific which labs, imaging reports with dates reviewed): Reviewed all provider notes, labs, vitals and imaging from 07-11-23 to date. Data in Support of Terminal Illness: Is patient hospice appropriate? no Transition Note Initiated: yes. [employer] Phone: 07-12-2023 Note Formatting of this n ote might be different from the original. Care Managment Initial Assessment Date: 07/12/2023 Patient Name: Yelena Chandra : 1935 Patient Information Source of Information: Patient Cognition/Language: WFL - Within Functional Limits Permission given to speak with patient entry level marketing representative/caregiver as indicated: Confirmation of Payer with patient/family: Yes Payer Name: [facility] Medicare : No Confirmation of Primary Care Physician: Confirmed PCP Name: Dr. Schulz Seen in last 2 years?: Yes Primary Caregiver: Self If assistance needed, confirmed caregiver ready, willing and able to care for patient at discharge: Yes Confirmed with: Per patient, sister and dshoqta-aw-qfi are very helpful Living Arrangements Current Residence: House Number of Floors 2 Number of Entry Steps: 4 Bed/Bath Levels: Both first floor Facility: Facility Name: Plan to Return: Yes Lives with: Extended family members (Sister and handyns-kj-toa) Support Systems: Family members, Friends/neighbors Activities of Daily Living Ambulation: Assistance (cane or walker) Bathing/Dressing: Independent Elimination/Continence/Toileting: Independent Feeding: Independent Who Assists with Activities of Daily Living: Instrumental Activities of Daily Living Prescription Coverage: Yes Pharmacy Used: [facility] [address] Medication Management: Independent Transportation/Shopping: Independent Transportation Mode: Car Needs Assistance with Transportation at Discharge: No Meal Preparation: Assistance Provider Meal Prep Assistance Provider Name: Family Laundry/Cleaning: Assistance Provider Laundry/Cleaning Assistance Provider Name: Family Finances/Bill Paying: Independent Communication: Independent Types of Care Services/Equipment Utilized Care Services: (N/A) Dialysis Type: NA Durable Medical Equipment: Cane, Walker Patient's Goal/Discharge Plan Patient expects to be discharged to: Home with [facility] - PT/OT rec SNF but patient (and her sister/axqysio-hk-wvs, per patient) decline at this time Discharge Planning Actions: Continue to follow Patient's Choice Rights and [employer] and Collaborative Relationships Disclosed as Indicated for Post-Acute Care: Interdisciplinary Team Engagement: Home Health Care Social Work Referral for: Additional Information: Spoke with patient at bedside. Introduced self and role. Patient admitted for increasing weakness and general malaise with no appetite - failure to thrive. Has had several falls due to weakness. Geriatrics consulted. PT/OT rec SNF but patient (and, per patient, sister/pzmqlcj-wv-wcf who she lives with) decline at this time. Agreeable to [facility]. Oliverio [facility] liaison to follow. TCC will continue to follow. Galileo Mejía RN [facility] 07-12-2023 Note Formatting of this n ote might be different from the original. Care Managment Initial Assessment Date: 07/12/2023 Patient Name: Yelena Chandra : 1935 Patient Information Source of Information: Patient Cognition/Language: WFL - Within Functional Limits Permission given to speak with patient entry level marketing representative/caregiver as indicated: Confirmation of Payer with patient/family: Yes Payer Name: [facility] Medicare [place]: No Confirmation of Primary Care Physician: Confirmed PCP Name: Dr. Schulz Seen in last 2 years?: Yes Primary Caregiver: Self If assistance needed, confirmed caregiver ready, willing and able to care for patient at discharge: Yes Confirmed with: Per patient, sister and onfmogp-te-gvy are very helpful Living Arrangements Current Residence: House Number of Floors 2 Number of Entry Steps: 4 Bed/Bath Levels: Both first floor Facility: Facility Name: Plan to Return: Yes Lives with: Extended family members (Sister and umaskyn-jg-qad) Support Systems: Family members, Friends/neighbors Activities of Daily Living Ambulation: Assistance (cane or walker) Bathing/Dressing: Independent Elimination/Continence/Toileting: Independent Feeding: Independent Who Assists with Activities of Daily Living: Instrumental Activities of Daily Living Prescription Coverage: Yes Pharmacy Used: [facility] [address] Medication Management: Independent Transportation/Shopping: Independent Transportation Mode: Car Needs Assistance with Transportation at Discharge: No Meal Preparation: Assistance Provider Meal Prep Assistance Provider Name: Family Laundry/Cleaning: Assistance Provider Laundry/Cleaning Assistance Provider Name: Family Finances/Bill Paying: Independent Communication: Independent Types of Care Services/Equipment Utilized Care Services: (N/A) Dialysis Type: NA Durable Medical Equipment: Cane, Walker Patient's Goal/Discharge Plan Patient expects to be discharged to: Home with [facility] - PT/OT rec SNF but patient (and her sister/bgkubpb-tk-ewd, per patient) decline at this time Discharge Planning Actions: Continue to follow Patient's Choice Rights and [employer] and Collaborative Relationships Disclosed as Indicated for Post-Acute Care: Interdisciplinary Team Engagement: Home Health Care Social Work Referral for: Additional Information: Spoke with patient at bedside. Introduced self and role. Patient admitted for increasing weakness and general malaise with no appetite - failure to thrive. Has had several falls due to weakness. Geriatrics consulted. PT/OT rec SNF but patient (and, per patient, sister/fdrefcl-bp-vhi who she lives with) decline at this time. Agreeable to [facility]. Messaged [facility] liaison to follow. TCC will continue to follow. Galileo Mejía RN [facility] 07-11-2023 History and physical note Images from the original note were not included. Attending History and Physical Admit Date: 07/11/2023 PCP: Yenifer Schulz DO CHIEF COMPLAINT: "not normal" Reason for Admission: failure to thrive History Obtained From: patient HISTORY OF PRESENT ILLNESS: Yelena is a 88 y.o. female with past medical history below who presents with chief complaint listed above. She states that she has been feeling weaker and more "unwell" over the past few weeks, has not had an appetite. Denies having any flu like symptoms - no cough, congestion, CP. Does have some SOB - which she states is chronic for her. Currently, lives at home - has had several falls due to weakness - and was not able to walk from the bed to the couch today. Describes general aches and pains. Patient is a vague historian - difficulty to get a history from. Will admit for further evaluation and management. Past Medical History: Past Medical History: Diagnosis Date Anxiety Arthritis Hypertension Past Surgical History: Past Surgical History: Procedure Laterality Date DILATION AND CURETTAGE OF UTERUS HYSTERECTOMY TONSILLECTOMY AND ADENOIDECTOMY (HISTORICAL) Social History: Social History Socioeconomic History Marital status: Spouse name: Not on file Number of children: Not on file Years of education: Not on file Highest education level: Not on file Occupational History Not on file Tobacco Use Smoking status: Former Smokeless tobacco: Never Substance and Sexual Activity Alcohol use: No Drug use: No Sexual activity: Not on file Other Topics Concern Not on file Social History Narrative Not on file Social Determinants of Health Financial Resource Strain: Not on file Food Insecurity: Not on file Transportation Needs: No Transportation Needs (08/01/2022) PRAPARE - Transportation Lack of Transportation (Medical): No Lack of Transportation (Non-Medical): No Physical Activity: Not on file Stress: Not on file Social Connections: Not on file Intimate Partner Violence: Not At Risk (08/01/2022) Humiliation, Afraid, Rape, and Kick questionnaire Fear of Current or Ex-Partner: No Emotionally Abused: No Physically Abused: No Sexually Abused: No Housing Stability: Unknown (08/01/2022) Housing Stability Vital Sign Unable to Pay for Housing in the Last Year: Not on file Number of Places Lived in the Last Year: 1 Unstable Housing in the Last Year: No Family History: No family history on file. Medications Prior to Admission: No current facility-administered medications on file prior to encounter. Current Outpatient Medications on File Prior to Encounter Medication Sig Dispense Refill amLODIPine (Norvasc) 10 MG tablet Take 1 tablet (10 mg) by mouth daily. Do not start before August 07, 2022. 30 tablet 1 hydrALAZINE (Apresoline) 50 MG tablet Take 1 tablet (50 mg) by mouth 3 times daily. 90 tablet 1 metoprolol tartrate (Lopressor) 100 MG tablet Take 1 tablet by mouth 2 times daily. Pt thought this was stopped and started on another BP med - does not know the name pantoprazole (ProtoNix) 40 MG EC tablet Take 1 tablet (40 mg) by mouth every morning (before breakfast). Do not crush, chew, or split. Do not start before August 07, 2022. 30 tablet 1 PARoxetine (Paxil) 10 MG tablet Take 20 mg by mouth every morning. therapeutic multivitamin-minerals (Theragran-M) tablet Take 1 tablet by mouth daily. Allergies: No Known Allergies REVIEW OF SYSTEMS: Constitutional: Negative for fever, chills, activity change and unexpected weight change. HEENT: Negative for congestion, postnasal drip and sneezing. Eyes: Negative for itching and visual disturbance. Respiratory: Negative for apnea, cough, choking, chest tightness, wheezing and stridor. Positive for shortness of breath, Cardiovascular: Negative for chest pain. Gastrointestinal: Negative for nausea, vomiting, abdominal pain, diarrhea and blood in stool. Genitourinary: Negative for dysuria, frequency and flank pain. Musculoskeletal: Negative for myalgias and joint swelling. Skin: Negative for rash. Neurological: Negative for dizziness, tremors, seizures, syncope, facial asymmetry, speech difficulty, weakness, numbness and headaches. Hematological: Negative for adenopathy. Psychiatric/Behavioral: Negative for suicidal ideas, behavioral problems, self-injury and dysphoric mood. Vitals: BP 123/76 (BP Location: Left arm, Patient Position: Lying) Pulse 89 Temp 36.6 C (97.8 F) (Oral) Resp 20 Wt 145 lb (65.8 kg) SpO2 99% BMI 24.89 kg/m BMI Classification: Normal Weight (BMI 18.5-24.9) Pulse Ox: SpO2 Av.5 % Min: 98 % Max: 99 % Supplemental O2: PHYSICAL EXAM: Physical Exam Vitals and nursing note reviewed. Constitutional: Appearance: She is not ill-appearing. Comments: Looks unkept HENT: Mouth/Throat: Pharynx: Oropharynx is clear. Eyes: General: Right eye: No discharge. Left eye: No discharge. Conjunctiva/sclera: Conjunctivae normal. Cardiovascular: Rate and Rhythm: Normal rate and regular rhythm. Heart sounds: No murmur heard. Pulmonary: Effort: Pulmonary effort is normal. No respiratory distress. Breath sounds: No wheezing or rales. Abdominal: General: Bowel sounds are normal. There is no distension. Tenderness: There is no abdominal tenderness. There is no guarding. Musculoskeletal: Right lower leg: Edema present. Left lower leg: Edema present. Skin: General: Skin is warm and dry. Capillary Refill: Capillary refill takes less than 2 seconds. Coloration: Skin is pale. Neurological: General: No focal deficit present. Mental Status: She is alert. Mental status is at baseline. DATA: CBC: Recent Labs 07/11/23 1743 WBC 10.2 RBC 4.25 HGB 12.0 HCT 34.8* MCV 81.9 RDW 14.8* PLT 502* BMP: Recent Labs 07/11/23 1743 NA 134* K 3.0* CL 102 CO2 23 BUN 15 CREATININE 0.88 GLUCOSE 115* CALCIUM 8.8 ANIONGAP 9 LIVER PROFILE: Recent Labs 07/11/23 1743 AST 32 ALT 16 BILITOT 0.9 ALKPHOS 108 PROT 7.4 PT/INR: No results for input(s): "PROTIME", "INR" in the last 72 hours. CARDIAC ENZYMES: Recent Labs 07/11/23 1743 TROPONINI <0.012 Procalcitonin: No results found for: "PROCAL" Urine Culture: No results found for this or any previous visit. COVID-19 PCR: No results for input(s): "COVID19" in the last 72 hours. I reviewed: [x] laboratory results [x] radiographic results At the time of today's encounter. Pt was advised of the results. Data: (CAT1) Reviewed 3 or more notes from different specialty or health system (each=1). (CAT1) Reviewed 3 or more labs/studies ordered by another provider not previously counted (each=1, panels count as 1). (CAT3) Discussed with Dr. Prakash regarding admission interpretation, in summary: patient to be admitted to the floor - will need placement (LOW: 2x CAT1 or independent historian MOD: 3x CAT1 or 1x CAT3 EXTENSIVE: 3x CAT1 and 1x CAT3) Assessment Discussed management with the ED provider and agree with hospitalization. Acute, acute on chronic, unstable/uncontrolled chronic problems/diagnoses: Failure to thrive Admit to floor Discuss plans for care -> Palliative consult, geriatric consults. Delirium protocol Hypertension Amlodipine 10 mg daily Hydralazine 50 mg TID GERD Pantoprazole daily Depression Paxil 20 mg daily -discuss taking patient off this - high risk, on [place] list. Plan As a result of the above findings & factors, the following mgmt was pursued: - Orders as above; - am labs, replace lytes prn - PT/OT/CM/SW - delirium precautions: increase activity, schedule melatonin at bedtime, limit nighttime disturbances, and avoid anticholinergic meds, benzos, etc - DVT prophylaxis: enoxaparin and encourage ambulation Complexity: End-stage chronic illness posing a constant threat to life (HIGH). Risk: Admission to hospital-level care was considered or occurred (HIGH). Advance Directive: Prior Anticipated Discharge - Date - TBD - Location - SNF vs LTAC - Pending the following - placement Total time spent (which include face to face and non face to face encounters) : 78 minutes. Toxic drug monitoring/narrow therapeutic index drug monitoring : # Drug name : NA # Route administered : NA # Method of monitoring : NA Extended Emergency Contact Information Primary Emergency Contact: Julianne Bravo Mobile Relation: Sister Preferred language: [place] [employer] Assistant needed? No Nicole Lombardi MD Division of Hospitalist Medicine [employer] [facility] [employer] Phone: 07-11-2023 History and physical note Images from the original note were not included. Attending History and Physical Admit Date: 07/11/2023 PCP: Yenifer Schulz DO CHIEF COMPLAINT: "not normal" Reason for Admission: failure to thrive History Obtained From: patient HISTORY OF PRESENT ILLNESS: Yelena is a 88 y.o. female with past medical history below who presents with chief complaint listed above. She states that she has been feeling weaker and more "unwell" over the past few weeks, has not had an appetite. Denies having any flu like symptoms - no cough, congestion, CP. Does have some SOB - which she states is chronic for her. Currently, lives at home - has had several falls due to weakness - and was not able to walk from the bed to the couch today. Describes general aches and pains. Patient is a vague historian - difficulty to get a history from. Will admit for further evaluation and management. Past Medical History: Past Medical History: Diagnosis Date Anxiety Arthritis Hypertension Past Surgical History: Past Surgical History: Procedure Laterality Date DILATION AND CURETTAGE OF UTERUS HYSTERECTOMY TONSILLECTOMY AND ADENOIDECTOMY (HISTORICAL) Social History: Social History Socioeconomic History Marital status: Spouse name: Not on file Number of children: Not on file Years of education: Not on file Highest education level: Not on file Occupational History Not on file Tobacco Use Smoking status: Former Smokeless tobacco: Never Substance and Sexual Activity Alcohol use: No Drug use: No Sexual activity: Not on file Other Topics Concern Not on file Social History Narrative Not on file Social Determinants of Health Financial Resource Strain: Not on file Food Insecurity: Not on file Transportation Needs: No Transportation Needs (08/01/2022) PRAPARE - Transportation Lack of Transportation (Medical): No Lack of Transportation (Non-Medical): No Physical Activity: Not on file Stress: Not on file Social Connections: Not on file Intimate Partner Violence: Not At Risk (08/01/2022) Humiliation, Afraid, Rape, and Kick questionnaire Fear of Current or Ex-Partner: No Emotionally Abused: No Physically Abused: No Sexually Abused: No Housing Stability: Unknown (08/01/2022) Housing Stability Vital Sign Unable to Pay for Housing in the Last Year: Not on file Number of Places Lived in the Last Year: 1 Unstable Housing in the Last Year: No Family History: No family history on file. Medications Prior to Admission: No current facility-administered medications on file prior to encounter. Current Outpatient Medications on File Prior to Encounter Medication Sig Dispense Refill amLODIPine (Norvasc) 10 MG tablet Take 1 tablet (10 mg) by mouth daily. Do not start before August 07, 2022. 30 tablet 1 hydrALAZINE (Apresoline) 50 MG tablet Take 1 tablet (50 mg) by mouth 3 times daily. 90 tablet 1 metoprolol tartrate (Lopressor) 100 MG tablet Take 1 tablet by mouth 2 times daily. Pt thought this was stopped and started on another BP med - does not know the name pantoprazole (ProtoNix) 40 MG EC tablet Take 1 tablet (40 mg) by mouth every morning (before breakfast). Do not crush, chew, or split. Do not start before August 07, 2022. 30 tablet 1 PARoxetine (Paxil) 10 MG tablet Take 20 mg by mouth every morning. therapeutic multivitamin-minerals (Theragran-M) tablet Take 1 tablet by mouth daily. Allergies: No Known Allergies REVIEW OF SYSTEMS: Constitutional: Negative for fever, chills, activity change and unexpected weight change. HEENT: Negative for congestion, postnasal drip and sneezing. Eyes: Negative for itching and visual disturbance. Respiratory: Negative for apnea, cough, choking, chest tightness, wheezing and stridor. Positive for shortness of breath, Cardiovascular: Negative for chest pain. Gastrointestinal: Negative for nausea, vomiting, abdominal pain, diarrhea and blood in stool. Genitourinary: Negative for dysuria, frequency and flank pain. Musculoskeletal: Negative for myalgias and joint swelling. Skin: Negative for rash. Neurological: Negative for dizziness, tremors, seizures, syncope, facial asymmetry, speech difficulty, weakness, numbness and headaches. Hematological: Negative for adenopathy. Psychiatric/Behavioral: Negative for suicidal ideas, behavioral problems, self-injury and dysphoric mood. Vitals: BP 123/76 (BP Location: Left arm, Patient Position: Lying) Pulse 89 Temp 36.6 C (97.8 F) (Oral) Resp 20 Wt 145 lb (65.8 kg) SpO2 99% BMI 24.89 kg/m BMI Classification: Normal Weight (BMI 18.5-24.9) Pulse Ox: SpO2 Av.5 % Min: 98 % Max: 99 % Supplemental O2: PHYSICAL EXAM: Physical Exam Vitals and nursing note reviewed. Constitutional: Appearance: She is not ill-appearing. Comments: Looks unkept HENT: Mouth/Throat: Pharynx: Oropharynx is clear. Eyes: General: Right eye: No discharge. Left eye: No discharge. Conjunctiva/sclera: Conjunctivae normal. Cardiovascular: Rate and Rhythm: Normal rate and regular rhythm. Heart sounds: No murmur heard. Pulmonary: Effort: Pulmonary effort is normal. No respiratory distress. Breath sounds: No wheezing or rales. Abdominal: General: Bowel sounds are normal. There is no distension. Tenderness: There is no abdominal tenderness. There is no guarding. Musculoskeletal: Right lower leg: Edema present. Left lower leg: Edema present. Skin: General: Skin is warm and dry. Capillary Refill: Capillary refill takes less than 2 seconds. Coloration: Skin is pale. Neurological: General: No focal deficit present. Mental Status: She is alert. Mental status is at baseline. DATA: CBC: Recent Labs 07/11/23 1743 WBC 10.2 RBC 4.25 HGB 12.0 HCT 34.8* MCV 81.9 RDW 14.8* PLT 502* BMP: Recent Labs 07/11/23 1743 NA 134* K 3.0* CL 102 CO2 23 BUN 15 CREATININE 0.88 GLUCOSE 115* CALCIUM 8.8 ANIONGAP 9 LIVER PROFILE: Recent Labs 07/11/23 1743 AST 32 ALT 16 BILITOT 0.9 ALKPHOS 108 PROT 7.4 PT/INR: No results for input(s): "PROTIME", "INR" in the last 72 hours. CARDIAC ENZYMES: Recent Labs 07/11/23 1743 TROPONINI <0.012 Procalcitonin: No results found for: "PROCAL" Urine Culture: No results found for this or any previous visit. COVID-19 PCR: No results for input(s): "COVID19" in the last 72 hours. I reviewed: [x] laboratory results [x] radiographic results At the time of today's encounter. Pt was advised of the results. Data: (CAT1) Reviewed 3 or more notes from different specialty or health system (each=1). (CAT1) Reviewed 3 or more labs/studies ordered by another provider not previously counted (each=1, panels count as 1). (CAT3) Discussed with Dr. Prakash regarding admission interpretation, in summary: patient to be admitted to the floor - will need placement (LOW: 2x CAT1 or independent historian MOD: 3x CAT1 or 1x CAT3 EXTENSIVE: 3x CAT1 and 1x CAT3) Assessment Discussed management with the ED provider and agree with hospitalization. Acute, acute on chronic, unstable/uncontrolled chronic problems/diagnoses: Failure to thrive Admit to floor Discuss plans for care -> Palliative consult, geriatric consults. Delirium protocol Hypertension Amlodipine 10 mg daily Hydralazine 50 mg TID GERD Pantoprazole daily Depression Paxil 20 mg daily -discuss taking patient off this - high risk, on [place] list. Plan As a result of the above findings & factors, the following mgmt was pursued: - Orders as above; - am labs, replace lytes prn - PT/OT/CM/SW - delirium precautions: increase activity, schedule melatonin at bedtime, limit nighttime disturbances, and avoid anticholinergic meds, benzos, etc - DVT prophylaxis: enoxaparin and encourage ambulation Complexity: End-stage chronic illness posing a constant threat to life (HIGH). Risk: Admission to hospital-level care was considered or occurred (HIGH). Advance Directive: Prior Anticipated Discharge - Date - TBD - Location - SNF vs LTAC - Pending the following - placement Total time spent (which include face to face and non face to face encounters) : 78 minutes. Toxic drug monitoring/narrow therapeutic index drug monitoring : # Drug name : NA # Route administered : NA # Method of monitoring : NA Extended Emergency Contact Information Primary Emergency Contact: Julianne Bravo Mobile Relation: Sister Preferred language: [place] [employer] Assistant needed? No Nicole Lombardi MD Division of Hospitalist Medicine Acute care [facility] documented in this encounter [facility] 07-11-2023 Emergency department Note I did not participate in the care of this patient. BO Irwin 07/11/23 1705 EMERGENCY DEPARTMENT ENCOUNTER Pt Name: Yelena Chandra Birthdate 1935 Date of evaluation: 07/11/2023 ED Provider: Thomas Nicole DO CHIEF COMPLAINT Chief Complaint Patient presents with Failure To Thrive Pt comes in via EMS due to failure to thrive pt keeps repeating "I'm not normal didn't they tell you hats wrong with me" when asked what is "not normal" pt yells " I dont know" vitals taken, EKG called during triage HISTORY OF PRESENT ILLNESS (Location/Symptom, Timing/Onset, Context/Setting, Quality, Duration, Modifying Factors, Severity) Note limiting factors. I wore appropriate PPE for the entirety of this encounter. HPI Yelena Chandra is a 88 y.o. with a past medical history of anxiety arthritis and hypertension presents to the emergency department due to concern for failure to thrive. Patient is accompanied by her sister at bedside and states that she has had worsening weakness for the past couple weeks. She is also stating that her sister has had decreased appetite. Patient does endorse decreased appetite. Patient denies any chest pain, shortness of breath fevers or chills. Patient denies any headache or blurry vision. Patient denies numbness or tingling to her extremities. Patient denies any pain or discomfort with urination. Patient lives at home with her sister and [id number]. Patient and patient's sister do not want patient to be placed in a snf at this time. Nursing Notes were reviewed. Limitations to history: None Outside historians: Family sister REVIEW OF SYSTEMS Review of Systems Pertinent positives and negatives as per HPI. PAST MEDICAL HISTORY Past Medical History: Diagnosis Date Anxiety Arthritis Hypertension SURGICAL HISTORY Past Surgical History: Procedure Laterality Date DILATION AND CURETTAGE OF UTERUS HYSTERECTOMY TONSILLECTOMY AND ADENOIDECTOMY (HISTORICAL) CURRENT MEDICATIONS Previous Medications AMLODIPINE (NORVASC) 10 MG TABLET Take 1 tablet (10 mg) by mouth daily. Do not start before August 07, 2022. HYDRALAZINE (APRESOLINE) 50 MG TABLET Take 1 tablet (50 mg) by mouth 3 times daily. METOPROLOL TARTRATE (LOPRESSOR) 100 MG TABLET Take 1 tablet by mouth 2 times daily. Pt thought this was stopped and started on another BP med - does not know the name PANTOPRAZOLE (PROTONIX) 40 MG EC TABLET Take 1 tablet (40 mg) by mouth every morning (before breakfast). Do not crush, chew, or split. Do not start before August 07, 2022. PAROXETINE (PAXIL) 10 MG TABLET Take 20 mg by mouth every morning. THERAPEUTIC MULTIVITAMIN-MINERALS (THERAGRAN-M) TABLET Take 1 tablet by mouth daily. ALLERGIES Patient has no known allergies. FAMILY HISTORY No family history on file. SOCIAL HISTORY Social History Socioeconomic History Marital status: Tobacco Use Smoking status: Former Smokeless tobacco: Never Substance and Sexual Activity Alcohol use: No Drug use: No Social Determinants of Health Transportation Needs: No Transportation Needs (08/01/2022) PRAPARE - Transportation Lack of Transportation (Medical): No Lack of Transportation (Non-Medical): No Intimate Partner Violence: Not At Risk (08/01/2022) Humiliation, Afraid, Rape, and Kick questionnaire Fear of Current or Ex-Partner: No Emotionally Abused: No Physically Abused: No Sexually Abused: No Housing Stability: Unknown (08/01/2022) Housing Stability Vital Sign Number of Places Lived in the Last Year: 1 Unstable Housing in the Last Year: No SCREENINGS PHYSICAL EXAM ED Triage Vitals Temp Pulse Resp BP -- -- -- -- SpO2 Temp src Heart Rate Source Patient Position -- -- -- -- BP Location FiO2 (%) -- -- Physical Exam Constitutional: Appearance: Normal appearance. She is normal weight. She is not ill-appearing, toxic-appearing or diaphoretic. HENT: Head: Normocephalic and atraumatic. Right Ear: External ear normal. Left Ear: External ear normal. Mouth/Throat: Mouth: Mucous membranes are dry. Pharynx: Oropharynx is clear. Eyes: General: No scleral icterus. Right eye: No discharge. Left eye: No discharge. Extraocular Movements: Extraocular movements intact. Conjunctiva/sclera: Conjunctivae normal. Pupils: Pupils are equal, round, and reactive to light. Cardiovascular: Rate and Rhythm: Normal rate and regular rhythm. Heart sounds: Normal heart sounds. No murmur heard. No friction rub. No gallop. Pulmonary: Effort: Pulmonary effort is normal. Breath sounds: Normal breath sounds. Abdominal: General: Bowel sounds are normal. There is no distension. Tenderness: There is no abdominal tenderness. There is no guarding. Neurological: Mental Status: She is alert. Motor: No pronator drift. Comments: Patient has intact sensation in dorsi and plantar surface of the feet bilaterally. Patient has intact flexion extension at the knee bilaterally. Patient has intact dorsiflexion and plantarflexion bilaterally. Patient has normal plug maker strength in the upper extremities bilaterally. Patient has normal sensation on the dorsal and palmar surfaces of the hands bilaterally. DIAGNOSTIC RESULTS Procedures/EKG: Sinus rhythm rate [address] segment changes patient does have a right bundle branch block with normal axis. Patient does have T wave inversions and inferior leads III and aVF. Patient also has inversions in V2 and V3. RADIOLOGY (Per Emergency Physician): Interpretation per the Radiologist below, if available at the time of this note: No orders to display ED BEDSIDE ULTRASOUND: Performed by ED Physician - none LABS: Labs Reviewed - No data to display All other labs were within normal range or not returned as of this dictation. EMERGENCY DEPARTMENT COURSE and DIFFERENTIAL DIAGNOSIS/MDM: Vitals: There were no vitals filed for this visit. Patient is a 88-year-old female presenting to the ED with concern for worsening weakness and failure to thrive. Patient is hemodynamically stable. Physical exam as noted above. At this time my differential diagnosis includes not limited to electrolyte derangement, acute coronary syndrome however patient is denying any chest pain or shortness of breath, anemia, hypothyroidism. Per chart review patient was a admitted between July 31 through August 07, 2022 with concerns for shortness of breath cough patient at that time to have a mild elevated troponin patient did receive antibiotics and steroids. Patient was discharged home with steroids. Cardiology evaluated the patient and believe that her elevated troponin was likely secondary to demand ischemia. Patient had a EF of 68% from echo performed on July 31, 2022. Patient's CMP was concerning for a mild outpatient treatment with sodium 134 hypokalemia with potassium 3.0 no evidence of any other severe electrolyte or renal or liver dysfunction. Patient's magnesium was low at 1.4. Patient's CBC did not show concerns for leukocytosis H&H was stable. Patient's troponin was unremarkable. Patient does have thrombocytosis with a platelet count of 5.2. Due to concern for hypokalemia and hypomagnesia she was treated with p.o. and IV potassium chloride as well as 2 g of magnesium sulfate. Patient also received 1 L normal saline with concern for dehydration. Patient's sister had a conversation with Dr. Prakash and family was amenable for patient to be placed in a SNF or rehab facility due to patient's family having difficulty taking care of her at home. I did discuss care with Admitting physician Dr. Lombardi with [facility]. She did agree to admit the patient for placement. Patient at time of admission. At time of admission patient did have UA pending. Diagnoses as of 07/11/231856 Weakness Decreased activities of daily living (ADL) Hypokalemia Hypomagnesemia Patient is in agreement with this plan. Patient's care was impacted by Hypertension. Patient's care was significantly impacted by social determinants of health including none. Medications - No data to display REVAL: CRITICAL CARE TIME None CONSULTS: None PROCEDURES: Unless otherwise noted below, none Procedures FINAL IMPRESSION 1. Decreased activities of daily living (ADL) 2. Weakness 3. Hypokalemia 4. Hypomagnesemia DISPOSITION PATIENT REFERRED TO: No follow-up provider specified. DISCHARGE MEDICATIONS: New Prescriptions No medications on file (Comment: Please note this report has been produced using speech recognition software and may contain errors related to that system including errors in grammar, punctuation, and spelling, as well as words and phrases that may be inappropriate. If there are any questions or concerns please feel free to contact the dictating provider for clarification.) Thomas Nicole DO (electronically signed) Emergency Medicine Provider Thomas Nicole DO Resident 07/11/231857 Emergency Department Encounter [facility] ED Patient: Yelena Chandra : 1935 Date of Evaluation: 07/11/2023 ED Supervising Physician: Chau Pascual MD I personally evaluated Yelena Chandra and made/approved the management plan and take responsibility for the patient management. This will serve as my Supervisory note and shared attestation. I did perform a substantive portion of the visit including all aspects of the Medical Decision Making. I wore appropriate PPE for the entirety of this encounter. In brief, Yelena Chandra is a 88 y.o. that presents to the emergency department for reported failure to thrive. Patient brought in by EMS. The sister is at bedside who lives with her and helps take care of her. She is fearful that she is to difficult to take care of her anymore. She states she is not getting up much and not eating drinking well. No reported falls or sick symptoms vomiting or fever. She has a slight cough. That is chronic. She has hypertension anxiety arthritis. She does not report any dizziness lightheadedness headache or pain no chest pain back pain denies any abnormal urination focal weakness numbness tingling. The sister does report that she has been told by her primary doctor that she does have some mild dementia. Focused exam: Awake alert no acute distress Vital signs within normal limits Large mass of the left mandible neck area that does not appear infected or fluctuant Mucous membranes are tacky Heart sounds regular slightly tachypneic Pupils equal and reactive face symmetric no pronator drift equal sensation throughout GCS is 15 NIH stroke scale of 1 which is chronic due to not knowing the year EKG interpreted by me see Ana Brief ED course/MDM: 88-year-old female history of hypertension lives at home with her sister who states it is getting much more difficult to take care of her as she has not been getting up or eating or drinking. Differential infection metabolic disturbance anemia failure to thrive. Plan is for CBC BMP troponin urinalysis chest x-ray, EKG without acute ischemia. Plan is ultimately for placement in rehab. Diagnostics interpreted by me: EKG; see my interpretation elsewhere in the chart I personally discussed the patient's management with other clinicians: none All diagnostic, treatment, and disposition decisions were made by myself in conjunction with the Resident. I also supervised torres portions of any procedures performed by the Resident. For all further details of the patient's emergency department visit, please see their documentation. (Comment: Please note this report has been produced using speech recognition software and may contain errors related to that system including errors in grammar, punctuation, and spelling, as well as words and phrases that may be inappropriate. If there are any questions or concerns please feel free to contact the dictating provider for clarification.) Chau Pascaul MD Acute Care [facility] Chau Pascual MD 07/11/239 documented in this encounter [employer] 07-11-2023 Physician Emergency department Note I did not participate in the care of this patient. BO Irwin 07/11/23 1705 [employer] Work Phone: 07-11-2023 Physician Emergency department Note EMERGENCY DEPARTMENT ENCOUNTER Pt Name: Yelena Chandra Birthdate 1935 Date of evaluation: 07/11/2023 ED Provider: Thomas Nicole DO CHIEF COMPLAINT Chief Complaint Patient presents with Failure To Thrive Pt comes in via EMS due to failure to thrive pt keeps repeating "I'm not normal didn't they tell you hats wrong with me" when asked what is "not normal" pt yells " I dont know" vitals taken, EKG called during triage HISTORY OF PRESENT ILLNESS (Location/Symptom, Timing/Onset, Context/Setting, Quality, Duration, Modifying Factors, Severity) Note limiting factors. I wore appropriate PPE for the entirety of this encounter. HPI Yelena Chandra is a 88 y.o. with a past medical history of anxiety arthritis and hypertension presents to the emergency department due to concern for failure to thrive. Patient is accompanied by her sister at bedside and states that she has had worsening weakness for the past couple weeks. She is also stating that her sister has had decreased appetite. Patient does endorse decreased appetite. Patient denies any chest pain, shortness of breath fevers or chills. Patient denies any headache or blurry vision. Patient denies numbness or tingling to her extremities. Patient denies any pain or discomfort with urination. Patient lives at home with her sister and [id number]. Patient and patient's sister do not want patient to be placed in a snf at this time. Nursing Notes were reviewed. Limitations to history: None Outside historians: Family sister REVIEW OF SYSTEMS Review of Systems Pertinent positives and negatives as per HPI. PAST MEDICAL HISTORY Past Medical History: Diagnosis Date Anxiety Arthritis Hypertension SURGICAL HISTORY Past Surgical History: Procedure Laterality Date DILATION AND CURETTAGE OF UTERUS HYSTERECTOMY TONSILLECTOMY AND ADENOIDECTOMY (HISTORICAL) CURRENT MEDICATIONS Previous Medications AMLODIPINE (NORVASC) 10 MG TABLET Take 1 tablet (10 mg) by mouth daily. Do not start before August 07, 2022. HYDRALAZINE (APRESOLINE) 50 MG TABLET Take 1 tablet (50 mg) by mouth 3 times daily. METOPROLOL TARTRATE (LOPRESSOR) 100 MG TABLET Take 1 tablet by mouth 2 times daily. Pt thought this was stopped and started on another BP med - does not know the name PANTOPRAZOLE (PROTONIX) 40 MG EC TABLET Take 1 tablet (40 mg) by mouth every morning (before breakfast). Do not crush, chew, or split. Do not start before August 07, 2022. PAROXETINE (PAXIL) 10 MG TABLET Take 20 mg by mouth every morning. THERAPEUTIC MULTIVITAMIN-MINERALS (THERAGRAN-M) TABLET Take 1 tablet by mouth daily. ALLERGIES Patient has no known allergies. FAMILY HISTORY No family history on file. SOCIAL HISTORY Social History Socioeconomic History Marital status: Tobacco Use Smoking status: Former Smokeless tobacco: Never Substance and Sexual Activity Alcohol use: No Drug use: No Social Determinants of Health Transportation Needs: No Transportation Needs (08/01/2022) PRAPARE - Transportation Lack of Transportation (Medical): No Lack of Transportation (Non-Medical): No Intimate Partner Violence: Not At Risk (08/01/2022) Humiliation, Afraid, Rape, and Kick questionnaire Fear of Current or Ex-Partner: No Emotionally Abused: No Physically Abused: No Sexually Abused: No Housing Stability: Unknown (08/01/2022) Housing Stability Vital Sign Number of Places Lived in the Last Year: 1 Unstable Housing in the Last Year: No SCREENINGS PHYSICAL EXAM ED Triage Vitals Temp Pulse Resp BP -- -- -- -- SpO2 Temp src Heart Rate Source Patient Position -- -- -- -- BP Location FiO2 (%) -- -- Physical Exam Constitutional: Appearance: Normal appearance. She is normal weight. She is not ill-appearing, toxic-appearing or diaphoretic. HENT: Head: Normocephalic and atraumatic. Right Ear: External ear normal. Left Ear: External ear normal. Mouth/Throat: Mouth: Mucous membranes are dry. Pharynx: Oropharynx is clear. Eyes: General: No scleral icterus. Right eye: No discharge. Left eye: No discharge. Extraocular Movements: Extraocular movements intact. Conjunctiva/sclera: Conjunctivae normal. Pupils: Pupils are equal, round, and reactive to light. Cardiovascular: Rate and Rhythm: Normal rate and regular rhythm. Heart sounds: Normal heart sounds. No murmur heard. No friction rub. No gallop. Pulmonary: Effort: Pulmonary effort is normal. Breath sounds: Normal breath sounds. Abdominal: General: Bowel sounds are normal. There is no distension. Tenderness: There is no abdominal tenderness. There is no guarding. Neurological: Mental Status: She is alert. Motor: No pronator drift. Comments: Patient has intact sensation in dorsi and plantar surface of the feet bilaterally. Patient has intact flexion extension at the knee bilaterally. Patient has intact dorsiflexion and plantarflexion bilaterally. Patient has normal plug maker strength in the upper extremities bilaterally. Patient has normal sensation on the dorsal and palmar surfaces of the hands bilaterally. DIAGNOSTIC RESULTS Procedures/EKG: Sinus rhythm rate [address] segment changes patient does have a right bundle branch block with normal axis. Patient does have T wave inversions and inferior leads III and aVF. Patient also has inversions in V2 and V3. RADIOLOGY (Per Emergency Physician): Interpretation per the Radiologist below, if available at the time of this note: No orders to display ED BEDSIDE ULTRASOUND: Performed by ED Physician - none LABS: Labs Reviewed - No data to display All other labs were within normal range or not returned as of this dictation. EMERGENCY DEPARTMENT COURSE and DIFFERENTIAL DIAGNOSIS/MDM: Vitals: There were no vitals filed for this visit. Patient is a 88-year-old female presenting to the ED with concern for worsening weakness and failure to thrive. Patient is hemodynamically stable. Physical exam as noted above. At this time my differential diagnosis includes not limited to electrolyte derangement, acute coronary syndrome however patient is denying any chest pain or shortness of breath, anemia, hypothyroidism. Per chart review patient was a admitted between July 31 through August 07, 2022 with concerns for shortness of breath cough patient at that time to have a mild elevated troponin patient did receive antibiotics and steroids. Patient was discharged home with steroids. Cardiology evaluated the patient and believe that her elevated troponin was likely secondary to demand ischemia. Patient had a EF of 68% from echo performed on July 31, 2022. Patient's CMP was concerning for a mild outpatient treatment with sodium 134 hypokalemia with potassium 3.0 no evidence of any other severe electrolyte or renal or liver dysfunction. Patient's magnesium was low at 1.4. Patient's CBC did not show concerns for leukocytosis H&H was stable. Patient's troponin was unremarkable. Patient does have thrombocytosis with a platelet count of 5.2. Due to concern for hypokalemia and hypomagnesia she was treated with p.o. and IV potassium chloride as well as 2 g of magnesium sulfate. Patient also received 1 L normal saline with concern for dehydration. Patient's sister had a conversation with Dr. Prakash and family was amenable for patient to be placed in a SNF or rehab facility due to patient's family having difficulty taking care of her at home. I did discuss care with Admitting physician Dr. Lombardi with [facility]. She did agree to admit the patient for placement. Patient at time of admission. At time of admission patient did have UA pending. Diagnoses as of 07/11/231856 Weakness Decreased activities of daily living (ADL) Hypokalemia Hypomagnesemia Patient is in agreement with this plan. Patient's care was impacted by Hypertension. Patient's care was significantly impacted by social determinants of health including none. Medications - No data to display REVAL: CRITICAL CARE TIME None CONSULTS: None PROCEDURES: Unless otherwise noted below, none Procedures FINAL IMPRESSION 1. Decreased activities of daily living (ADL) 2. Weakness 3. Hypokalemia 4. Hypomagnesemia DISPOSITION PATIENT REFERRED TO: No follow-up provider specified. DISCHARGE MEDICATIONS: New Prescriptions No medications on file (Comment: Please note this report has been produced using speech recognition software and may contain errors related to that system including errors in grammar, punctuation, and spelling, as well as words and phrases that may be inappropriate. If there are any questions or concerns please feel free to contact the dictating provider for clarification.) Thomas Nicole DO (electronically signed) Emergency Medicine Provider Thomas Nicole DO Resident 07/11/23 1862 [facility] 07-11-2023 Physician Emergency department Note Emergency Department Encounter [facility] ED Patient: Yelena Chandra : 1935 Date of Evaluation: 07/11/2023 ED Supervising Physician: Chau Pascual MD I personally evaluated Yelena Chandra and made/approved the management plan and take responsibility for the patient management. This will serve as my Supervisory note and shared attestation. I did perform a substantive portion of the visit including all aspects of the Medical Decision Making. I wore appropriate PPE for the entirety of this encounter. In brief, Yelena Chandra is a 88 y.o. that presents to the emergency department for reported failure to thrive. Patient brought in by EMS. The sister is at bedside who lives with her and helps take care of her. She is fearful that she is to difficult to take care of her anymore. She states she is not getting up much and not eating drinking well. No reported falls or sick symptoms vomiting or fever. She has a slight cough. That is chronic. She has hypertension anxiety arthritis. She does not report any dizziness lightheadedness headache or pain no chest pain back pain denies any abnormal urination focal weakness numbness tingling. The sister does report that she has been told by her primary doctor that she does have some mild dementia. Focused exam: Awake alert no acute distress Vital signs within normal limits Large mass of the left mandible neck area that does not appear infected or fluctuant Mucous membranes are tacky Heart sounds regular slightly tachypneic Pupils equal and reactive face symmetric no pronator drift equal sensation throughout GCS is 15 NIH stroke scale of 1 which is chronic due to not knowing the year EKG interpreted by me see Ana Brief ED course/MDM: 88-year-old female history of hypertension lives at home with her sister who states it is getting much more difficult to take care of her as she has not been getting up or eating or drinking. Differential infection metabolic disturbance anemia failure to thrive. Plan is for CBC BMP troponin urinalysis chest x-ray, EKG without acute ischemia. Plan is ultimately for placement in rehab. Diagnostics interpreted by me: EKG; see my interpretation elsewhere in the chart I personally discussed the patient's management with other clinicians: none All diagnostic, treatment, and disposition decisions were made by myself in conjunction with the Resident. I also supervised torres portions of any procedures performed by the Resident. For all further details of the patient's emergency department visit, please see their documentation. (Comment: Please note this report has been produced using speech recognition software and may contain errors related to that system including errors in grammar, punctuation, and spelling, as well as words and phrases that may be inappropriate. If there are any questions or concerns please feel free to contact the dictating provider for clarification.) Chau Pascual MD Acute Care [facility] Chau Pascual MD 07/11/231818 [facility] Work Phone: 12-26-2022 Hospital Discharge instructions Caro Dominguez DO - 12/26/2022 7:17 PM EDT ForReturn to the ER if you are having worsening dizziness, if you are having difficulty speaking, if you are having one-sided weakness, if you are having difficulty walking, if you develop or flank pain, if you cannot keep down fluids, if you have any other concerns. Follow-up with your regular doctor in the next week if your symptoms or not improving. The following attachments cannot be sent through Care Everywhere.Acute Cystitis Discharge Instructions (Nicaraguan)documented in this encounter [facility] 12-26-2022 Emergency department Note EMERGENCY DEPARTMENT ENCOUNTER Pt Name: Yelena Chandra Birthdate 1935 Date of evaluation: 12/26/2022 ED Provider: Caro Dominguez DO CHIEF COMPLAINT Chief Complaint Patient presents with Dizziness Per Street Ems report patient became dizzy upon standing in the bathroom and slid to the floor. EMS was called by patients sister due to patient being unable to get off the floor. Patient denies any pain or hitting her head . HISTORY OF PRESENT ILLNESS (Location/Symptom, Timing/Onset, Context/Setting, Quality, Duration, Modifying Factors, Severity) Note limiting factors. I wore appropriate PPE for the entirety of this encounter. HPI Yelena Chandra is a 87 y.o. who presents to the emergency department with chief complaint of dizziness. Patient reports that this morning she was on the toilet, felt dizzy, then fell onto her bottom between the toilet and the bathtub. She denies head strike or loss of consciousness. She denies associated chest pain, palpitations, shortness of breath, diaphoresis, nausea, or vomiting. She reports she is not currently dizzy, and is only dizzy with standing or walking. Patient sister at bedside reports she recently has not been eating or drinking well because she is depressed after her dog recently. She denies any fevers, chills. Patient sister at bedside states that patient is acting at her baseline, has not had any difficulty speaking today, has not had any one-sided weakness or facial droop. Patient walks with a walker at baseline Nursing Notes were reviewed. Limitations to history: Outside historians: Family sister at bedside REVIEW OF SYSTEMS Review of Systems Pertinent positives and negatives as per HPI. PAST MEDICAL HISTORY Past Medical History: Diagnosis Date Anxiety Arthritis Hypertension SURGICAL HISTORY Past Surgical History: Procedure Laterality Date DILATION AND CURETTAGE OF UTERUS HYSTERECTOMY TONSILLECTOMY AND ADENOIDECTOMY (HISTORICAL) CURRENT MEDICATIONS Previous Medications AMLODIPINE (NORVASC) 10 MG TABLET Take 1 tablet (10 mg) by mouth daily. Do not start before August 07, 2022. HYDRALAZINE (APRESOLINE) 50 MG TABLET Take 1 tablet (50 mg) by mouth 3 times daily. METOPROLOL TARTRATE (LOPRESSOR) 100 MG TABLET Take 1 tablet by mouth 2 times daily. Pt thought this was stopped and started on another BP med - does not know the name PANTOPRAZOLE (PROTONIX) 40 MG EC TABLET Take 1 tablet (40 mg) by mouth every morning (before breakfast). Do not crush, chew, or split. Do not start before August 07, 2022. PAROXETINE (PAXIL) 10 MG TABLET Take 20 mg by mouth every morning. THERAPEUTIC MULTIVITAMIN-MINERALS (THERAGRAN-M) TABLET Take 1 tablet by mouth daily. ALLERGIES Patient has no known allergies. FAMILY HISTORY No family history on file. SOCIAL HISTORY Social History Socioeconomic History Marital status: Tobacco Use Smoking status: Former Smokeless tobacco: Never Substance and Sexual Activity Alcohol use: No Drug use: No Social Determinants of Health Transportation Needs: No Transportation Needs (08/01/2022) PRAPARE - Transportation Lack of Transportation (Medical): No Lack of Transportation (Non-Medical): No Intimate Partner Violence: Not At Risk (08/01/2022) Humiliation, Afraid, Rape, and Kick questionnaire Fear of Current or Ex-Partner: No Emotionally Abused: No Physically Abused: No Sexually Abused: No Housing Stability: Unknown (08/01/2022) Housing Stability Vital Sign Number of Places Lived in the Last Year: 1 Unstable Housing in the Last Year: No SCREENINGS [place] Coma Scale Best Eye Response: To verbal stimuli Best Verbal Response: Oriented Best Motor Response: Follows commands [place] [address] [place] Coma Scale Score: 14 PHYSICAL EXAM ED Triage Vitals Temp Heart Rate Resp BP 12/26/22 1545 12/26/22 1541 12/26/22 1541 12/26/22 1541 37.1 C (98.8 F) 70 20 124/63 SpO2 Temp Source Heart Rate Source Patient Position 12/26/22 1541 12/26/22 1545 -- 12/26/22 1541 97 % Oral Lying BP Location FiO2 (%) 12/26/22 1541 -- Right arm Physical Exam I have reviewed the triage vital signs General: No acute distress. Alert & oriented x3. Nontoxic in appearance Skin: Warm, dry, no rashes visualized HEENT: Pupils equal and round and reactive, EOMI without nystagmus, normal sclera. Dry mucous membranes Neck: Trachea midline, no mass Cardiovascular: Regular rate, regular rhythm. No murmurs, rubs, or gallops. No peripheral edema Respiratory: Breath sounds clear to auscultation bilaterally, no wheeze, equal chest rise and fall Gastrointestinal: Soft, nondistended, nontender, no rebound, no guarding Musculoskeletal: Nontender, no gross deformities appreciated, no swollen joints exposed on exam Neurological: Alert and oriented, no focal neuro deficits, normal speech pattern. CN II-XII intact. No facial droop. +5/5 strength in b/l UE and LE. Sensation grossly intact. No drift to b/l arms or legs. Walks with assistance with a steady gait that somewhat favors the left leg; baseline gait per sister at bedside. Psychiatric: Appropriate mood and affect for condition, normal behavior DIAGNOSTIC RESULTS Procedures/EKG: Sinus rhythm, PACs, RBBB. Compared to prior. EKG was reviewed by myself. Physician EKG interpretation can be found in [facility] RADIOLOGY (Per Emergency Physician): CXR known substernal goiter. 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 Report Dictated on Electronically Signed By: Iggy Stern MD Electronically Signed Date/Time: 12/26/2022 5:[address] head wo IV contrast Final Result No acute findings. Report Dictated on Electronically Signed By: Iggy Stern MD Electronically Signed Date/Time: 12/26/2022 4:49 PM EDT ED BEDSIDE ULTRASOUND: Performed by ED Physician - none LABS: Labs Reviewed MAGNESIUM - Abnormal Result Value MAGNESIUM 1.5 (*) COMPREHENSIVE METABOLIC PANEL - Abnormal SODIUM 139 POTASSIUM 3.5 CHLORIDE 106 CARBON DIOXIDE 27 ANION GAP 6 UREA NITROGEN 17 CREATININE 1.01 GLUCOSE 104 (*) CALCIUM 8.5 AST (SGOT) 33 ALT 13 ALKALINE PHOSPHATASE 66 ALBUMIN 3.6 BILIRUBIN, TOTAL 0.6 TOTAL PROTEIN 7.0 eGFR 54.7 (*) Narrative: Slightly Hemolyzed CBC WITH AUTO DIFFERENTIAL - Abnormal Auto WBC 7.0 RBC 4.21 Hemoglobin 11.3 (*) Hematocrit 34.7 (*) MCV 82.3 MCH 26.7 MCHC 32.5 RDW 14.6 (*) Platelets 316 MPV 9.0 nRBC 0.2 Neutrophils Relative 64.3 Lymphocytes Relative 21.5 Monocytes Relative 10.0 Eosinophils Relative 3.3 Basophils Relative 0.9 Neutrophils Absolute 4.5 Lymphocytes Absolute 1.5 Monocytes Absolute 0.7 Eosinophils Absolute 0.2 Basophils Absolute 0.1 COMPLETE URINALYSIS - Abnormal Color, Urine Yellow Clarity, Urine Clear pH, Urine 6.0 Leukocytes, Urine 25 (*) Nitrite, Urine Negative Protein, Urine 30 (*) Glucose, Urine Normal Bilirubin, Urine Negative Ketones, Urine Negative Urobilinogen, Urine Normal Blood, Urine Negative RBC, Urine 3-5 (*) WBC, Urine 6-10 (*) Squamous Epithelial, Urine 0-2 Bacteria, Urine Few (*) Mucus, Urine Few Hyaline Casts, Urine 0-2 (*) SPECIFIC GRAVITY OF URINE (NUMERIC) 1.019 COMPLETE URINALYSIS WITH REFLEX TO CULTURE Narrative: The following orders were created for panel order Urinalysis complete with reflex to Culture. Procedure Abnormality Status --------- ------ Complete Urinalysis[[id number]] Abnormal Final result Please view results for these tests on the individual orders. All other labs were within normal range or not returned as of this dictation. EMERGENCY DEPARTMENT COURSE and DIFFERENTIAL DIAGNOSIS/MDM: Vitals: Vitals: 12/26/22 1541 12/26/22 1545 12/26/22 1755 12/26/22 1908 BP: 124/63 139/80 126/79 BP Location: Right arm Right arm Patient Position: Lying Lying Pulse: 70 64 63 Resp: 20 18 Temp: 37.1 C (98.8 F) TempSrc: Oral SpO2: 97% 98% 97% Patient is an 87yF with PMH HTN presenting to the ED with an episode of dizziness. NIH 0. No dizziness while laying in bed or sitting up. Patient reports some dizziness with standing and walking. Walks with a gait favoring her left leg; however no ataxia. Negative test of skew, negative HINTS exam Considered vasovagal, presyncope, orthostatic hypotension, peripheral vertigo although this seems less likely given her symptoms are only with standing and do not worsen with moving her head. Doubt cerebellar stroke given no ataxia with her gait, intact neurologic exam, mental status at baseline. Will obtain labs including advanced lytes for this dizziness. Will also obtain EKG to eval for arrhythmia that could be causing her symptoms. Will obtain CT head given dizziness as well as her reported fall and elderly age and concern for head trauma. Diagnoses as of 12/26/221918 Dizziness Acute cystitis without hematuria Medications sodium chloride 0.9 % bolus 1,000 mL (0 mL IntraVENous Stopped 12/26/221732) magnesium sulfate in D5W IVPB 1,000 mg (0 mg IntraVENous Stopped 12/26/221841) REVAL: Magnesium 1.5; repleted. On reassessment after IV fluids and magnesium, patient reports she is feeling much better. Patient reports she has an appetite and would like to go home. Patient and her sister feel comfortable with her going home at this time. Work-up overall grossly unremarkable. Symptoms were likely related to hypovolemia and possibly orthostatics. Symptoms improved. Patient given strict return precautions, all questions answered. Patient stable for discharge home at this time CRITICAL CARE TIME CONSULTS: None PROCEDURES: Unless otherwise noted below, none Procedures Patients symptoms are consistent with sepsis, severe sepsis, or septic shock (If yes use ".sepsiscoremeasure"): No FINAL IMPRESSION 1. Dizziness 2. Acute cystitis without hematuria DISPOSITION Discharge 12/26/2022 07:17:09 PM PATIENT REFERRED TO: Yenifer Schulz DO [address] [facility] [id number] In 1 week As needed DISCHARGE MEDICATIONS: New Prescriptions CEPHALEXIN (KEFLEX) 500 MG CAPSULE Take 1 capsule (500 mg) by mouth 2 times daily for 5 days. (Comment: Please note this report has been produced using speech recognition software and may contain errors related to that system including errors in grammar, punctuation, and spelling, as well as words and phrases that may be inappropriate. If there are any questions or concerns please feel free to contact the dictating provider for clarification.) Caro Dominguez DO (electronically signed) Emergency Medicine Provider Caro Dominguez DO 12/26/221919 documented in this encounter [facility] 12-26-2022 Physician Emergency department Note EMERGENCY DEPARTMENT ENCOUNTER Pt Name: Yelena Chandra Birthdate 1935 Date of evaluation: 12/26/2022 ED Provider: Caro Dominguez DO CHIEF COMPLAINT Chief Complaint Patient presents with Dizziness Per [place] [facility] report patient became dizzy upon standing in the bathroom and slid to the floor. EMS was called by patients sister due to patient being unable to get off the floor. Patient denies any pain or hitting her head . HISTORY OF PRESENT ILLNESS (Location/Symptom, Timing/Onset, Context/Setting, Quality, Duration, Modifying Factors, Severity) Note limiting factors. I wore appropriate PPE for the entirety of this encounter. HPI Yelena Chandra is a 87 y.o. who presents to the emergency department with chief complaint of dizziness. Patient reports that this morning she was on the toilet, felt dizzy, then fell onto her bottom between the toilet and the bathtub. She denies head strike or loss of consciousness. She denies associated chest pain, palpitations, shortness of breath, diaphoresis, nausea, or vomiting. She reports she is not currently dizzy, and is only dizzy with standing or walking. Patient sister at bedside reports she recently has not been eating or drinking well because she is depressed after her dog recently. She denies any fevers, chills. Patient sister at bedside states that patient is acting at her baseline, has not had any difficulty speaking today, has not had any one-sided weakness or facial droop. Patient walks with a walker at baseline Nursing Notes were reviewed. Limitations to history: Outside historians: Family sister at bedside REVIEW OF SYSTEMS Review of Systems Pertinent positives and negatives as per HPI. PAST MEDICAL HISTORY Past Medical History: Diagnosis Date Anxiety Arthritis Hypertension SURGICAL HISTORY Past Surgical History: Procedure Laterality Date DILATION AND CURETTAGE OF UTERUS HYSTERECTOMY TONSILLECTOMY AND ADENOIDECTOMY (HISTORICAL) CURRENT MEDICATIONS Previous Medications AMLODIPINE (NORVASC) 10 MG TABLET Take 1 tablet (10 mg) by mouth daily. Do not start before August 07, 2022. HYDRALAZINE (APRESOLINE) 50 MG TABLET Take 1 tablet (50 mg) by mouth 3 times daily. METOPROLOL TARTRATE (LOPRESSOR) 100 MG TABLET Take 1 tablet by mouth 2 times daily. Pt thought this was stopped and started on another BP med - does not know the name PANTOPRAZOLE (PROTONIX) 40 MG EC TABLET Take 1 tablet (40 mg) by mouth every morning (before breakfast). Do not crush, chew, or split. Do not start before August 07, 2022. PAROXETINE (PAXIL) 10 MG TABLET Take 20 mg by mouth every morning. THERAPEUTIC MULTIVITAMIN-MINERALS (THERAGRAN-M) TABLET Take 1 tablet by mouth daily. ALLERGIES Patient has no known allergies. FAMILY HISTORY No family history on file. SOCIAL HISTORY Social History Socioeconomic History Marital status: Tobacco Use Smoking status: Former Smokeless tobacco: Never Substance and Sexual Activity Alcohol use: No Drug use: No Social Determinants of Health Transportation Needs: No Transportation Needs (08/01/2022) PRAPARE - Transportation Lack of Transportation (Medical): No Lack of Transportation (Non-Medical): No Intimate Partner Violence: Not At Risk (08/01/2022) Humiliation, Afraid, Rape, and Kick questionnaire Fear of Current or Ex-Partner: No Emotionally Abused: No Physically Abused: No Sexually Abused: No Housing Stability: Unknown (08/01/2022) Housing Stability Vital Sign Number of Places Lived in the Last Year: 1 Unstable Housing in the Last Year: No SCREENINGS [address] [place] Coma Scale Best Eye Response: To verbal stimuli Best Verbal Response: Oriented Best Motor Response: Follows commands [address] [place] Coma Scale Score: 14 PHYSICAL EXAM ED Triage Vitals Temp Heart Rate Resp BP 12/26/22 1545 12/26/22 1541 12/26/22 1541 12/26/22 1541 37.1 C (98.8 F) 70 20 124/63 SpO2 Temp Source Heart Rate Source Patient Position 12/26/22 1541 12/26/22 1545 -- 12/26/22 1541 97 % Oral Lying BP Location FiO2 (%) 12/26/22 1541 -- Right arm Physical Exam I have reviewed the triage vital signs General: No acute distress. Alert & oriented x3. Nontoxic in appearance Skin: Warm, dry, no rashes visualized HEENT: Pupils equal and round and reactive, EOMI without nystagmus, normal sclera. Dry mucous membranes Neck: Trachea midline, no mass Cardiovascular: Regular rate, regular rhythm. No murmurs, rubs, or gallops. No peripheral edema Respiratory: Breath sounds clear to auscultation bilaterally, no wheeze, equal chest rise and fall Gastrointestinal: Soft, nondistended, nontender, no rebound, no guarding Musculoskeletal: Nontender, no gross deformities appreciated, no swollen joints exposed on exam Neurological: Alert and oriented, no focal neuro deficits, normal speech pattern. CN II-XII intact. No facial droop. +5/5 strength in b/l UE and LE. Sensation grossly intact. No drift to b/l arms or legs. Walks with assistance with a steady gait that somewhat favors the left leg; baseline gait per sister at bedside. Psychiatric: Appropriate mood and affect for condition, normal behavior DIAGNOSTIC RESULTS Procedures/EKG: Sinus rhythm, PACs, RBBB. Compared to prior. EKG was reviewed by myself. Physician EKG interpretation can be found in [facility] RADIOLOGY (Per Emergency Physician): CXR known substernal goiter. 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 Report Dictated on Electronically Signed By: Iggy Stern MD Electronically Signed Date/Time: 12/26/2022 5:[address] head wo IV contrast Final Result No acute findings. Report Dictated on Electronically Signed By: Iggy Stern MD Electronically Signed Date/Time: 12/26/2022 4:49 PM EDT ED BEDSIDE ULTRASOUND: Performed by ED Physician - none LABS: Labs Reviewed MAGNESIUM - Abnormal Result Value MAGNESIUM 1.5 (*) COMPREHENSIVE METABOLIC PANEL - Abnormal SODIUM 139 POTASSIUM 3.5 CHLORIDE 106 CARBON DIOXIDE 27 ANION GAP 6 UREA NITROGEN 17 CREATININE 1.01 GLUCOSE 104 (*) CALCIUM 8.5 AST (SGOT) 33 ALT 13 ALKALINE PHOSPHATASE 66 ALBUMIN 3.6 BILIRUBIN, TOTAL 0.6 TOTAL PROTEIN 7.0 eGFR 54.7 (*) Narrative: Slightly Hemolyzed CBC WITH AUTO DIFFERENTIAL - Abnormal Auto WBC 7.0 RBC 4.21 Hemoglobin 11.3 (*) Hematocrit 34.7 (*) MCV 82.3 MCH 26.7 MCHC 32.5 RDW 14.6 (*) Platelets 316 MPV 9.0 nRBC 0.2 Neutrophils Relative 64.3 Lymphocytes Relative 21.5 Monocytes Relative 10.0 Eosinophils Relative 3.3 Basophils Relative 0.9 Neutrophils Absolute 4.5 Lymphocytes Absolute 1.5 Monocytes Absolute 0.7 Eosinophils Absolute 0.2 Basophils Absolute 0.1 COMPLETE URINALYSIS - Abnormal Color, Urine Yellow Clarity, Urine Clear pH, Urine 6.0 Leukocytes, Urine 25 (*) Nitrite, Urine Negative Protein, Urine 30 (*) Glucose, Urine Normal Bilirubin, Urine Negative Ketones, Urine Negative Urobilinogen, Urine Normal Blood, Urine Negative RBC, Urine 3-5 (*) WBC, Urine 6-10 (*) Squamous Epithelial, Urine 0-2 Bacteria, Urine Few (*) Mucus, Urine Few Hyaline Casts, Urine 0-2 (*) SPECIFIC GRAVITY OF URINE (NUMERIC) 1.019 COMPLETE URINALYSIS WITH REFLEX TO CULTURE Narrative: The following orders were created for panel order Urinalysis complete with reflex to Culture. Procedure Abnormality Status --------- ------ Complete Urinalysis[[id number]] Abnormal Final result Please view results for these tests on the individual orders. All other labs were within normal range or not returned as of this dictation. EMERGENCY DEPARTMENT COURSE and DIFFERENTIAL DIAGNOSIS/MDM: Vitals: Vitals: 12/26/22 1541 12/26/22 1545 12/26/22 1755 12/26/22 1908 BP: 124/63 139/80 126/79 BP Location: Right arm Right arm Patient Position: Lying Lying Pulse: 70 64 63 Resp: 20 18 Temp: 37.1 C (98.8 F) TempSrc: Oral SpO2: 97% 98% 97% Patient is an 87yF with PMH HTN presenting to the ED with an episode of dizziness. NIH 0. No dizziness while laying in bed or sitting up. Patient reports some dizziness with standing and walking. Walks with a gait favoring her left leg; however no ataxia. Negative test of skew, negative HINTS exam Considered vasovagal, presyncope, orthostatic hypotension, peripheral vertigo although this seems less likely given her symptoms are only with standing and do not worsen with moving her head. Doubt cerebellar stroke given no ataxia with her gait, intact neurologic exam, mental status at baseline. Will obtain labs including advanced lytes for this dizziness. Will also obtain EKG to eval for arrhythmia that could be causing her symptoms. Will obtain CT head given dizziness as well as her reported fall and elderly age and concern for head trauma. Diagnoses as of 12/26/221918 Dizziness Acute cystitis without hematuria Medications sodium chloride 0.9 % bolus 1,000 mL (0 mL IntraVENous Stopped 12/26/22 173) magnesium sulfate in D5W IVPB 1,000 mg (0 mg IntraVENous Stopped 12/26/22 184) REVAL: Magnesium 1.5; repleted. On reassessment after IV fluids and magnesium, patient reports she is feeling much better. Patient reports she has an appetite and would like to go home. Patient and her sister feel comfortable with her going home at this time. Work-up overall grossly unremarkable. Symptoms were likely related to hypovolemia and possibly orthostatics. Symptoms improved. Patient given strict return precautions, all questions answered. Patient stable for discharge home at this time CRITICAL CARE TIME CONSULTS: None PROCEDURES: Unless otherwise noted below, none Procedures Patients symptoms are consistent with sepsis, severe sepsis, or septic shock (If yes use ".sepsiscoremeasure"): No FINAL IMPRESSION 1. Dizziness 2. Acute cystitis without hematuria DISPOSITION Discharge 12/26/2022 07:17:09 PM PATIENT REFERRED TO: Yenifer Schulz DO [address] [facility] [id number] In 1 week As needed DISCHARGE MEDICATIONS: New Prescriptions CEPHALEXIN (KEFLEX) 500 MG CAPSULE Take 1 capsule (500 mg) by mouth 2 times daily for 5 days. (Comment: Please note this report has been produced using speech recognition software and may contain errors related to that system including errors in grammar, punctuation, and spelling, as well as words and phrases that may be inappropriate. If there are any questions or concerns please feel free to contact the dictating provider for clarification.) Caro Dominguez DO (electronically signed) Emergency Medicine Provider Caro Dominguez DO 12/26/221919 [facility] 08-12-2022 Miscellaneous Notes No Contact X 2 S: [facility] to: [facility] [facility] with Dyspnea B: Discharged on : 08/07/2022 A: Hospital follow up call initiated to discuss any medication changes, follow up appointments and discharge instructions: Follow-Ups: Schedule an appointment with Yenifer Schulz DO (Internal Medicine) in 1 week (08/12/2022) R: No contact x 1 at :[phone] documented in this encounter [facility] 08-12-2022 Telephone encounter Note No Contact X 2 [facility] 08-11-2022 Telephone encounter Note S: Patient admitted to: [facility] with Dyspnea B: Discharged on : 08/07/2022 A: Hospital follow up call initiated to discuss any medication changes, follow up appointments and discharge instructions: Follow-Ups: Schedule an appointment with Yenifer Schulz DO (Internal Medicine) in 1 week (08/12/2022) R: No contact x 1 at :[phone] [facility] 08-11-2022 Miscellaneous Notes S: Patient admitted to: [facility] with Dyspnea B: Discharged on : 08/07/2022 A: Hospital follow up call initiated to discuss any medication changes, follow up appointments and discharge instructions: Follow-Ups: Schedule an appointment with Yenifer Schulz DO (Internal Medicine) in 1 week (08/12/2022) R: No contact x 1 at :[phone] documented in this encounter [facility] 08-07-2022 Miscellaneous Notes Patient Choice Patient Name: YELENA CHANDRA Date of : 1935 All Providers Sent Referral Name: [facility] Phone: [phone] Address: [address] [place] [address] Images from the original note were not included. Care Management Progress Note - Discharge Expected Date/Time: 08/06/2022 Afternoon Disposition: Home or Self Care Transport status: No current request Discharge Milestones Place discharge order Complete med reconciliation Request transport Case mgmt discharge readiness Expected Discharge History Expected Date/Time Set By Reviewed At 08/06/2022 Afternoon Gelacio Blunt MD 08/06/2022 2:14 PM 08/05/2022 Michelle Kingsley RN 08/05/2022 7:50 AM 08/03/2022 Viky Maurer DO 08/01/2022 4:15 PM 08/03/2022 Viky Maurer DO 07/31/2022 5:50 PM Length of Stay (Days): 7 GMLOS: No GMLOS Documented Anticipate possible discharge to home with home care services today. . Diastolic blood pressure remains elevated. Is still requiring oxygen at 2 liters 97% saturation. Will need home oxygen evaluation prior to discharge. Did [facility] chat cardiology for clarification regarding possible life vest?.. The patient is Moderately Stable - Low risk of patient condition declining or worsening The patient's goals for the shift include Sleep The clinical goals for the shift include No respiratory distress Over the shift, the patient did not make progress toward the following goals. Barriers to progression include unsteady gait during transferring and hospital setting. Recommendations to address these barriers include assistance with transfers via assist person and assistive devices, patient education, fall precautions, and clustering of care. Educated patient and sister Lynn on Home Care and services available. Patient is agreeable to receiving home care services at this time. With SN, PT, OT. Patient was given choice of home care agencies available in the area and is agreeable to having referrals made with agencies that staff the patients service location. Referrals have been sent via [facility]. Liaison to discuss available agencies to accept case with patient upon receiving responses. [facility] is not in network with patients insurance. Images from the original note were not included. Care Management Progress Note - Discharge Expected Date/Time: 08/05/[address] discharge order Complete med reconciliation Request transport Case mgmt discharge readiness Expected Discharge History Expected Date/Time Set By Reviewed At 08/05/2022 Michelle Kingsley RN 08/05/2022 7:50 AM 08/03/2022 Viky Maurer DO 08/01/2022 4:15 PM 08/03/2022 Viky Maurer DO 07/31/2022 5:50 PM Length of Stay (Days): 5 GMLOS: No GMLOS Documented GI consulted - defer EGD at this time - MBS/esophagogram. Cardiology following, IV antibiotics, oxygen-wean as tolerated, nebulizers. Remains on 4L O2 will need home O2 eval at discharge. Mixer Machine Feeder following case for Discharge Needs. Care Managment Initial Assessment Date: 08/02/2022 Patient Name: Yelena Chandra : 1935 Patient Information Source of Information: Patient Cognition/Language: WFL - Within Functional Limits Permission given to speak with patient entry level marketing representative/caregiver as indicated: Yes Confirmation of Payer with patient/family: Yes Payer Name: [employer] medicare [place]: No Confirmation of Primary Care Physician: Confirmed PCP Name: Yaritza Seen in last 2 years?: Yes Primary Caregiver: Self If assistance needed, confirmed caregiver ready, willing and able to care for patient at discharge: Yes Confirmed with: pt Living Arrangements Current Residence: House Number of Floors 2 Number of Entry Steps: 4 Bed/Bath Levels: Both first floor Facility: Facility Name: Plan to Return: home Lives with: Extended family members Support Systems: Family members, Friends/neighbors Activities of Daily Living Ambulation: Independent (with cane or walker) Bathing/Dressing: Independent Elimination/Continence/Toileting: Independent Feeding: Independent Who Assists with Activities of Daily Living: self Instrumental Activities of Daily Living Prescription Coverage: Yes Pharmacy Used: [facility] [address] Medication Management: Prescription pick-up Who assists with medication securing and setup?: self Transportation/Shopping: Independent Transportation Mode: Car Needs Assistance with Transportation at Discharge: Comments (sister) Meal Preparation: Assistance Provider Laundry/Cleaning: Assistance Provider Finances/Bill Paying: Independent Communication: Independent Types of Care Services/Equipment Utilized Care Services: (na) Dialysis Type: NA Durable Medical Equipment: Walker, Cane Patient's Goal/Discharge Plan Patient expects to be discharged to: home Discharge Planning Actions: Continue to follow Patient's Choice Rights and [employer] and Collaborative Relationships Disclosed as Indicated for Post-Acute Care: Interdisciplinary Team Engagement: PT/OT Social Work Referral for: Additional Information: Spoke with pt via phone,introduced self & role.Pt independent, drives, manages medications, ADL's. Home tasks are completed by pt sister. Pt plans to return home with sister & is agreeable to home care. engineering production liaison notified. She states someone is available 16/12. Reason for admission:Acute purulent bronchitis with possible underlying pneumonia - pneumonia PCR - H influenza, IV antibiotics,supplemental oxygen, wean as tolerated, Elevated troponin-cardiology consult, ECHO, EKG, nebulizers. Michelle Kingsley RN documented in this encounter [facility] 08-07-2022 Note Formatting of this n ote might be different from the original. Patient Choice Patient Name: YELENA CHANDRA Date of : 1935 All Providers Sent Referral Name: [facility] Phone: [phone] Address: [address] [place] [id number] [facility] 08-07-2022 Note Formatting of this n ote might be different from the original. Patient Choice Patient Name: YELENA CHANDRA Date of : 1935 All Providers Sent Referral Name: [facility] Phone: [phone] Address: [address] [place] [id number] [facility] 08-07-2022 History of Present illness Narrative RTHOMEO2[[id number]] Respiratory Therapy Home O2 Progress Note Any of the following criteria met: Qualifying ABG performed within the last 48 hour of discharge na Patient in Chronic stable state PO2 ?55mmHg at rest If yes, notify DME Date of ABG results: Time of ABG results: Qualifying Nocturnal Oximetry study na Patient in Chronic stable state Nocturnal recording SpO2 <88% for >5 minutes If yes, notify DME Date of Nocturnal Oximetry: Ambulation home O2 testing SpO2 at rest on RA = 93 HR at rest = 72 SpO2 with ambulation on RA = 96 Peak HR = 93 Distance Walked (ft)= 50 feet patient tolerance Recovery SpO2 at rest= 96 Recovery HR= 91 O2 device O2 flow rate (lpm) = SpO2 with ambulation and O2 = na Peak HR = na O2 device = O2 flow rate (lpm) = Distance walked (ft) = Patient meets criteria for home O2 Y/N = No Patient mobile at home Y/N = Yes Is additional O2 flow rate required during ambulation No DME Notified No Speech-Language Pathology Facility/Department: [facility] 2EAST DYSPHAGIA TREATMENT NAME: Yelena Chandra : 1935 ADMISSION DATE: 07/31/2022 ADMITTING DIAGNOSIS: has Arthritis of knee and Dyspnea on their problem list. No Known Allergies Oxygen Level: O2 Device: Nasal cannula Liters of Oxygen: 1 L Current Diet Level: Dietary Orders (From admission, onward) Start Ordered 08/02/22 1332 Adult diet Dysphagia - Soft and Bite Sized Diet effective now Question: Diet type Answer: Dysphagia - Soft and Bite Sized 08/02/22 1332 Pain: RN managing patient pain S: Pt sitting up to chair. "I didn't order, was I supposed to". (Called to release tray for breakfest) O: Assess pt's ability to follow swallowing strategies during po intake. A: Pt with functional mastication of soft foods. Cut up for her into small bite sized pieces for ease of mastication, pt does not wear her dentures in the hospital and benefits from softer, smaller bites. Pt with intermittent coughing during snack/po. She did on swallow study as well. Encourge slower rate, stopping when sense of fullness. Pt is able to comply with minimal cues. She packed her reminder note in her bag. Made her another to assist with visual cues during all po. Instructed to leave note out while in hospital and take other note home. Need reflux precautions, slower rate and pauses as needed. Pt educated that ice cream is ok to eat. Recommended Diet and Intervention Diet Solids Recommendation: Dysphagia Soft and Bite-Sized (Dysphagia III), Easy to Chew Liquid Consistency Recommendation: Thin Recommended Form of Meds: PO (1 at a time) Therapeutic Interventions: Patient/Family education Compensatory Swallowing Strategies Compensatory Swallowing Strategies : Upright as possible for all oral intake, External pacing, Eat/Feed slowly, Remain upright for 30-45 minutes after meals, Small bites/sips Treatment/Goals Encounter Problems Encounter Problems (Active) Swallowing Patient will tolerate the least restrictive diet consistency to allow for safe consumption of daily meals (Completed) Start: 08/02/22 Expected End: 08/16/22 Met: 08/07/22 Patient will participate in instrumental assessment of swallowing as appropriate (Completed) Start: 08/02/22 Expected End: 08/16/22 Met: 08/06/22 Patient will use appropriate strategies for increased oralpharyngeal swallow function (Adequate for Discharge) Start: 08/06/22 Expected End: 08/09/22 Education Education Response: Swallowing strategies with written reminders for homegoing. P: Pt is on most lenient diet as she does not use dentures in hospital. Written reminder for reflux precautions. Treatment Plan Requires GAS COMPRESSOR TURBINE OPERATOR Intervention: No Frequency/Duration: for Therapy Time GAS COMPRESSOR TURBINE OPERATOR Individual Minutes Time In: 0843 Time Out: 0857 Minutes: 14 MILTON Hernández 08/07/2022 10:33 AM Nutrition update completed. Chart reviewed. Refer patient to the Dietitian for dysphagia - speech following. Hospitalist Progress Note 08/06/2022 [phone]: Please page me ([phone]) for patient care issues. [phone]: Please page [facility] Hospitalist for any issues. Subjective: Admit Date: 07/31/2022 PCP: Yenifer Schulz, Room#: B2-254/B2-254 A Interval History: Up in chair at side of bed. Somewhat somnolent and slow to answer questions but doing so appropriately. No cp, sob, cough, n/v, f/c, dizziness. Tolerating diet. D/w pt and RN at bedside and separately. Adult diet Dysphagia - Soft and Bite Sized @[id number]@ 24HR INTAKE/OUTPUT: Intake/Output Summary (Last 24 hours) at 08/06/2022 1526 Last data filed at 08/06/2022 0500 Gross per 24 hour Intake -- Output 1175 ml Net -1175 ml Past Medical History: Past Medical History: Diagnosis Date Anxiety Arthritis Hypertension LABS: CBC: Recent Labs 08/04/22 0420 08/05/22 0350 08/06/22 0409 WBC 12.0* 11.9* 13.5* RBC 4.21 4.24 4.39 HGB 11.5* 11.5* 12.2 HCT 35.5 36.0 37.2 MCV 84.4 85.0 84.7 RDW 13.3 13.1 13.2 PLT 357 355 374 BMP: Recent Labs 08/04/22 0420 08/05/22 0350 08/06/229 NA 136 137 135 K 4.0 4.4 4.4 CL 105 105 104 CO2 30 32* 31* BUN 35* 33* 32* CREATININE 1.09* 0.98 0.83 GLUCOSE 155* 112* 118* CALCIUM 8.4 8.1* 8.0* ANIONGAP 1* 0* -1* LIVER PROFILE: Recent Labs 08/04/22 0420 08/05/22 0350 08/06/22408 AST 37 46 48* ALT 24 23 22 BILITOT 0.2 0.3 0.6 ALKPHOS 85 72 66 PROT 6.4 5.9* 6.5 PT/INR: No results for input(s): PROTIME, INR in the last 72 hours. CARDIAC ENZYMES: No results for input(s): TROPONINI in the last 72 hours. Procalcitonin: No results found for: PROCAL COVID-19 PCR: No results for input(s): COVID19 in the last 72 hours. Objective: Vitals: BP (!) 158/82 (BP Location: Left arm, Patient Position: Sitting) Pulse 64 Temp 35.9 C (96.6 F) (Temporal) Resp 18 Ht 5' 4" (1.626 m) Wt 183 lb (83 kg) SpO2 95% PF (!) 18 L/min BMI 31.41 kg/m Pulse Ox: SpO2 Av.5 % Min: 95 % Max: 98 % Physical Exam Vitals reviewed. Constitutional: General: She is not in acute distress. Appearance: Normal appearance. HENT: Mouth/Throat: Mouth: Mucous membranes are dry. Pharynx: Oropharynx is clear. Eyes: Extraocular Movements: Extraocular movements intact. Pupils: Pupils are equal, round, and reactive to light. Cardiovascular: Rate and Rhythm: Normal rate and regular rhythm. Pulses: Normal pulses. Heart sounds: Normal heart sounds. No murmur heard. Pulmonary: Effort: Pulmonary effort is normal. Breath sounds: Normal breath sounds. No wheezing. Comments: Occasional wheeze. Abdominal: General: Abdomen is flat. There is no distension. Palpations: Abdomen is soft. Tenderness: There is no abdominal tenderness. There is no guarding. Musculoskeletal: General: No swelling. Normal range of motion. Cervical back: Normal range of motion and neck supple. Right lower leg: No edema. Left lower leg: No edema. Skin: General: Skin is warm and dry. Capillary Refill: Capillary refill takes 2 to 3 seconds. Neurological: General: No focal deficit present. Mental Status: She is alert and oriented to person, place, and time. Sensory: No sensory deficit. Motor: Weakness present. Psychiatric: Mood and Affect: Mood normal. Medications: amLODIPine, 10 mg, Oral, Daily aspirin, 81 mg, Oral, Daily budesonide, 0.5 mg, Nebulization, BID enoxaparin, 40 mg, SubCUTAneous, Daily guaiFENesin, 600 mg, Oral, BID hydrALAZINE, 25 mg, Oral, TID influenza, 0.5 mL, IntraMUSCular, Once ipratropium-albuterol, 3 mL, Nebulization, BID metoprolol tartrate, 100 mg, Oral, BID nystatin, 5 mL, Swish & Swallow, BID pantoprazole, 40 mg, Oral, qAM AC sodium chloride 0.9%, 10 mL, IntraVENous, 2 times per day Assessment Acute purulent bronchitis with possible underlying pneumonia - pneumonia PCR - H influenza - continue with ceftriaxone , total 7 day course Tachycardia, sinus -metoprolol 100 mg BID Leucocytosis - improving Elevated troponin - 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 - EKG- no ST elevation - ECHO - EF 68%, diastolic dysfunction -cardiology consult appreciated 6. HTN- -amlodipine and metoprolol -add hydralazine 7. Mild hypokalemia -improved. 8. Elevated BS -likely steroid/stress - normal Hba1c 9. Dysphagia - speech eval- on dysphagia diet per speech. - GI consulted - defer EGD at this time - MBS/esophagogram 10 . 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 - follow up with GI as an outpatient. 12. Altered mental status, lethargy -PT/OT -follow up clinically, aggressive work up if no improvement -May need Geriatrics evaluation Medical Decision Making Admitted for acute bronchitis with acute respiratory failure -On ceftriaxone for H. influenzae found in PCR. Total 7 days course. Can stop antibiotics after today -Barium swallow as well as barium esophagogram done for dysphagia. Continue Protonix. Follow-up as an outpatient for EGD. -monitor mental status/lethargy, finish antibiotics, discharge in AM if back to baseline. See orders - PT/OT - labs in am. -am labs, replace lytes prn -increase activity -DVT prophylaxis: [x] Lovenox [] Heparin [] SCDs [x] Encourage ambulation [] Already on Anticoagulation Anticipated Discharge - Date - 08/07 - Location - home with home health - Pending the following - mental status improved Total time spent (which include face to face and non face to face encounters) : 42 minutes Toxic drug monitoring/narrow therapeutic index drug monitoring : # Drug name : # Route administered : # Method of monitoring : Extended Emergency Contact Information Primary Emergency Contact: Joycelyn Rodríguez Relation: Other GELACIO BLUNT MD Division of Hospitalist Medicine [facility]patient Medical Services[facility] [place] [facility]: [employer] chat Cardiology Progress Note Patient Name: Yelena Chandra Patient Age: 87 y.o. Date: 08/06/2022 SUBJECTIVE: Elevated troponin. 0.06>>> 0.03 VITALS BP (!) 173/98 (BP Location: Left arm, Patient Position: Sitting) Pulse 70 Temp 36.1 C (97 F) (Temporal) Resp 20 Ht 5' 4" (1.626 m) Wt 183 lb (83 kg) SpO2 96% PF (!) 18 L/min BMI 31.41 kg/m Susie is a 87 y.o. female with past medical history of anxiety, HTN, OA presented with above complaints. Has been having cough with purulent sputum for the last 2-3 days. Woke up today morning with discharge from both eyes with redness of eyes. Was tired. Had some upper respiratory illness going around in the house before she caught it. No fever or chills. No chest pain. SOB present. No leg swelling Intake/Output Summary (Last 24 hours) at 08/06/2022 1212 Last data filed at 08/06/2022 0500 Gross per 24 hour Intake 240 ml Output 1175 ml Net -935 ml OBJECTIVE: 10 systems reviewed as seen below Neck: Neck JVP 0, No carotid bruits, thyroid not enlarged Cardiovascular system: NSR, Short systolic murmur, no gallop Chest: normal breath sounds Abdomen: Abdomen soft/non-tender, no organomegaly, bowel sounds present Extremities: No edema, no varicosity Endocrine : Hypothyroidism No Diabites No GI system : GIB No Renal : CKD No MICROELECTRONICS ENGINEER : CVA/TIA No Musculoskeletal system : DJD No LAB Lab Results Component Value Date NA 135 08/06/2022 K 4.4 08/06/2022 CL 104 08/06/2022 CO2 31 (H) 08/06/2022 BUN 32 (H) 08/06/2022 CREATININE 0.83 08/06/2022 GLUCOSE 118 (H) 08/06/2022 CALCIUM 8.0 (L) 08/06/2022 Lab Results Component Value Date WBC 13.5 (H) 08/06/2022 HGB 12.2 08/06/2022 HCT 37.2 08/06/2022 MCV 84.7 08/06/2022 PLT 374 08/06/2022 Lab Results Component Value Date TROPONINI 0.031 08/01/2022 Lab Results Component Value Date TSH 0.882 06/18/2021 No components found for: LABA1C No components found for: EAG Recent Labs 08/06/22 0409 ALKPHOS 66 ALT 22 AST 48* BILITOT 0.6 Lab Results Component Value Date BNP 6,597 (H) 07/31/2022 CARDIAC TESTING EKG: Encounter Date: 07/31/22 ECG 12 lead Result Value Heart Rate 59 QRSD Interval 120 QT Interval 456 QTC Interval 452 P [place] 66 QRS [place] 41 T Wave [place] -2 DE Interval 168 Impression SINUS RHYTHM RBBB Compared to ECG 07/31/2022 16:55:55 Sinus tachycardia no longer present Electronically Signed On 08-04-2022 14:23:15 EDT by Peggy Carson Echo: Transthoracic echocardiogram (TTE) complete with contrast, bubble, strain, and 3D PRN Result Date: 08/01/2022 Left Ventricle: Left ventricle size is normal. Normal wall thickness. Normal left ventricular systolic function. EF by 2D Simpsons Biplane is 68%. Normal wall motion. Diastolic dysfunction present with increased LAP with normal LVEF. Average E/e' ratio is 19.17. Right Ventricle: Right ventricle size is normal. Normal systolic function. Tricuspid Valve: RVSP 32 mmHg above RA pressure; RVSP therefore may be normal or mildly elevated. No significant valvular abnormalities. Troponin: Stress Test: DRW=8125. Cardiac Cath: X RAY CHEST, NO INFILTERATE. IMPRESSION : STRESS INDUCED TROPONIN ELEVATION. DUE TO BRONCHITIS & POSSIBLE HYPOXIA, TYPE 2 NSTMI. BRONCHITIS. >>NO INFILTERATE. PLAN : ECHO.>>EF=68 %.. NO WMA. FOLLOW ENZYME,/ CRF. PT/OT. HAVING JERRY PENA. SIERRA OJEDA M.D., [facility] 08/06/2022 Physical Therapy Facility/Department: [address] Physical Therapy Daily Treatment Note NAME: Yelena Chandra : 1935 Date of Service: 08/06/2022 Discharge Recommendations: 24 hour supervision or assist, Home with Home health PT PT Equipment Recommendations Equipment Needed: No Other: Pt owns FWW. Assessment Assessment: Pt demonstrates improving understanding of safety with FWW for transfers and ambulation. Pt continues to require SBA for safety due to fatigue and cognitive limitations. Pt could benefit from continued PT in order to progress toward goals. Recommendation for [facility] PT and 24 hour supervision remains appropriate at this time. Pt reports she has 24 hour assist available. Requires PT Follow-Up: Yes Patient Diagnosis(es): The encounter diagnosis was Dyspnea. has a past medical history of Anxiety, Arthritis, and Hypertension. has a past surgical history that includes Hysterectomy; Dilation and curettage of uterus; and Tonsillectomy and adenoidectomy. Restrictions Restrictions/Precautions Restrictions/Precautions: General Precautions, Fall Risk Required Braces or Orthoses?: No Subjective General Chart Reviewed: Yes Patient Assessed for Rehabilitation Services: Yes Family / Caregiver Present: No Follows Commands: Within Functional Limits General Comment Comments: Per RN patient okay for therapy and okay for patient to be on room air. SpO2 >93% throughout on room air. Subjective Subjective: Pt very pleasant and agreeable to therapy. Pain Assessment Pain Assessment: No/denies pain Cognition/Orientation Following Commands: Follows one step commands with repetition, Follows one step commands with increased time Memory: Decreased short term memory Safety Judgement: Decreased awareness of need for safety, Decreased awareness of need for assistance Problem Solving: Decreased awareness of errors Insights: Decreased awareness of deficits Initiation: Requires cues for some Sequencing: Requires cues for some Overall Orientation Status: Within Functional Limits Objective Bed mobility Supine to Sit: Stand by assistance Sit to Supine: (NT patient up in chair end of session) Scooting: Stand by assistance Comment: Denies dizziness with positional changes. Pt requires increased time to complete and use of bed rails. Cues throughout for weight shifting and UE assist in order to improve independence and ease of task. Pt demonstrates good understanding at this time and able to complete without physical assist. Transfers Sit to Stand: Stand by assistance (to FWW from EOB and commode) Stand to sit: Stand by assistance Comment: Denies dizziness on initial stance. Pt requires 25% cues for hand placement at this time and increased time to complete transitions. Patient educated on safe hand placement on ascent and descent to improve safety and prepare for ambulation. Ambulation Ambulation: Yes Ambulation 1 Surface 1: Level tile Device 1: Rolling walker Assistance 1: Standby assistance Quality of Gait Comment 1: Pt demonstrates short reciprocal stepping pattern, B foot clearance, no true LOB or instability, decreased posture with increasing fatigue, slow kathleen Distance (ft) 1: 35 ft x 1, 15 ft x 1, 70 ft x 1 Comments 1: Pt requires cues for posture, proximity to FWW and increased step height in order to improve safety and gait mechanics during mobility to decrease risk of falling. Pt requires 1 person for safety due to fatigue and occasional SOB, SpO2 remains >93% on room air with exertion. Exercises Comments: Declined due to fatigue. Plan # of visits: 5 visits Current Treatment Recommendations: Strengthening, Balance Training, Functional Mobility Training, Transfer Training, Endurance Training, Equipment Evaluation, Education, & procurement, Patient/Caregiver Education & Training, Safety Education & Training, Home Exercise Program, Stair training, Gait Training, Pain Management, Positioning, Neuromuscular Re-education Plan Comment: Goals and/or treatment plan were established in collaboration with patient. Safety Safety Devices Type of Devices: Patient at risk for falls, All fall risk precatuions in place, Call light within reach, Gait belt, Nurse notified, Left in chair, Chair alarm in place AM-PAC Score AM-PAC Inpatient Mobility Raw Score: 19 Mobility Inpatient [facility] G-Code Modifier: CK Goals Encounter Problems Encounter Problems (Active) Exercise Patient will complete lower extremity exercises for 1-2 sets / 5-10 reps in order to improve strength and activity tolerance for mobility. (Not Addressed) Start: 08/02/22 Expected End: 08/09/22 Mobility Patient will ambulate 100 feet with modified independence and rolling walker in order to improve safety and independence with mobility. (Progressing) Start: 08/02/22 Expected End: 08/09/22 Patient will ascend and descend 4 stairs with least restrictive device and supervision in order to safely negotiate home. (Not Addressed) Start: 08/02/22 Expected End: 08/09/22 Pain - Adult Transfers Patient will perform bed mobility with modified independence in order to improve independence and prepare for out of bed mobility. (Progressing) Start: 08/02/22 Expected End: 08/09/22 Patient will complete sit to stand transfer with modified independence to rolling walker in order to improve safety and prepare for out of bed mobility. (Progressing) Start: 08/02/22 Expected End: 08/09/22 Education Education Given To: Patient Education Provided: Goals, Energy Conservation, PT Role, General Safety, Gait Training, Plan of Care, Discharge recommendations, Functional Mobility Training, Equipment, Precautions, Transfer Training, Injury Prevention Education Method: Demonstration, Verbal Barriers to Learning: None Education Outcome: Demonstrated understanding, Verbalized understanding, Continued education needed Therapy Time Individual Co-treatment Time In 0955 Time Out 1023 Minutes 28 Timed Code Treatment Minutes: 25 Minutes (theract x 1, gait x 1) Jessica Abrams PT Speech-Language Pathology Facility/Department: [facility] 2EAST DYSPHAGIA TREATMENT NAME: Yelena Chandra : 1935 ADMISSION DATE: 07/31/2022 ADMITTING DIAGNOSIS: has Arthritis of knee and Dyspnea on their problem list. No Known Allergies Oxygen Level: O2 Device: Nasal cannula Liters of Oxygen: 1 L Current Diet Level: Dietary Orders (From admission, onward) Start Ordered 08/02/22 1332 Adult diet Dysphagia - Soft and Bite Sized Diet effective now Question: Diet type Answer: Dysphagia - Soft and Bite Sized 08/02/22 1332 Pain: RN managing patient pain S: "I don't even know if I just had breakfast or dinner" O: Education of pt in recommended strategies, Pt will utilize strategies to minimize overt symptoms of dysphagia. A: Pt with frequent coughing after po intake. +coughing noted on exam yesterday without airway compromise. Pt associates it with mucous / sinus drainage. Provided written reminder for slow rate of intake. Stop/pause if "feel full". Smaller more frequent meals, and do not lay flat for at least an hour after eating. Pt is on soft and bite sized, however feel Easy to chew would be appropriate. Pt is able to cut food up on her own. Just needs to slow down with rate of intake to assist with esophageal clearing. Recommended Diet and Intervention Diet Solids Recommendation: Dysphagia Soft and Bite-Sized (Dysphagia III), Easy to Chew Liquid Consistency Recommendation: Thin Recommended Form of Meds: PO (1 at a time) Therapeutic Interventions: Patient/Family education, Tongue base strengthening Compensatory Swallowing Strategies Compensatory Swallowing Strategies : Upright as possible for all oral intake, External pacing, Eat/Feed slowly, Remain upright for 30-45 minutes after meals, Small bites/sips Treatment/Goals Encounter Problems Encounter Problems (Active) Swallowing Patient will tolerate the least restrictive diet consistency to allow for safe consumption of daily meals (Progressing) Start: 08/02/22 Expected End: 08/16/22 Patient will participate in instrumental assessment of swallowing as appropriate (Completed) Start: 08/02/22 Expected End: 08/16/22 Met: 08/06/22 Patient will use appropriate strategies for increased oralpharyngeal swallow function Start: 08/06/22 Expected End: 08/09/22 Education Education Response: Needs reinforcement P: ST to follow up on recall and follow through of strategies to maximize po safety. Treatment Plan Requires GAS COMPRESSOR TURBINE OPERATOR Intervention: Yes Frequency/Duration: for Therapy Time GAS COMPRESSOR TURBINE OPERATOR Individual Minutes Time In: 0815 Time Out: 0831 Minutes: 16 MILTON Hernández 08/06/2022 9:12 AM Hospitalist Progress Note 08/05/2022 [id number]: Please page me ([phone]) for patient care issues. [phone]: Please page [facility] Hospitalist for any issues. Subjective: Admit Date: 07/31/2022 PCP: Yenifer Schulz DO Room#: B2-254/B2-254 A Interval History: Seen and examined. Breathing improved. Less cough or expectoration. Adult diet Dysphagia - Soft and Bite Sized @[id number]@ 24HR INTAKE/OUTPUT: Intake/Output Summary (Last 24 hours) at 08/05/2022 1502 Last data filed at 08/05/2022 1419 Gross per 24 hour Intake 365 ml Output 2500 ml Net -2135 ml Past Medical History: Past Medical History: Diagnosis Date Anxiety Arthritis Hypertension LABS: CBC: Recent Labs 08/04/2241908/05/22 0350 WBC 12.0* 11.9* RBC 4.21 4.24 HGB 11.5* 11.5* HCT 35.5 36.0 MCV 84.4 85.0 RDW 13.3 13.1 PLT 357 355 BMP: Recent Labs 08/03/2231708/04/220 08/05/22 0350 NA 138 136 137 K 4.3 4.0 4.4 CL 106 105 105 CO2 28 30 32* BUN 39* 35* 33* CREATININE 1.13* 1.09* 0.98 GLUCOSE 135* 155* 112* CALCIUM 8.5 8.4 8.1* ANIONGAP 4 1* 0* LIVER PROFILE: Recent Labs 08/03/2231708/04/220 08/05/22 0350 AST 34 37 46 ALT 20 24 23 BILITOT 0.3 0.2 0.3 ALKPHOS 89 85 72 PROT 6.9 6.4 5.9* PT/INR: No results for input(s): PROTIME, INR in the last 72 hours. CARDIAC ENZYMES: No results for input(s): TROPONINI in the last 72 hours. Procalcitonin: No results found for: PROCAL COVID-19 PCR: No results for input(s): COVID19 in the last 72 hours. Objective: Vitals: BP 138/76 (BP Location: Left arm, Patient Position: Sitting) Pulse 76 Temp 35.8 C (96.5 F) (Temporal) Resp 19 Ht 5' 4" (1.626 m) Wt 183 lb (83 kg) SpO2 96% PF (!) 18 L/min BMI 31.41 kg/m Pulse Ox: SpO2 Av % Min: 96 % Max: 99 % Physical Exam Vitals reviewed. Constitutional: Appearance: Normal appearance. Cardiovascular: Rate and Rhythm: Normal rate and regular rhythm. Heart sounds: Normal heart sounds. Pulmonary: Effort: Pulmonary effort is normal. Breath sounds: Normal breath sounds. Comments: Occasional wheeze. Abdominal: Palpations: Abdomen is soft. Neurological: Mental Status: She is oriented to person, place, and time. Psychiatric: Mood and Affect: Mood normal. Medications: [START ON 08/06/2022] amLODIPine, 10 mg, Oral, Daily aspirin, 81 mg, Oral, Daily budesonide, 0.5 mg, Nebulization, BID cefTRIAXone, 1,000 mg, IntraVENous, q24h enoxaparin, 40 mg, SubCUTAneous, Daily guaiFENesin, 600 mg, Oral, BID influenza, 0.5 mL, IntraMUSCular, Once ipratropium-albuterol, 3 mL, Nebulization, BID metoprolol tartrate, 100 mg, Oral, BID nystatin, 5 mL, Swish & Swallow, BID pantoprazole, 40 mg, Oral, qAM AC sodium chloride 0.9%, 10 mL, IntraVENous, 2 times per day Assessment Acute purulent bronchitis with possible underlying pneumonia - pneumonia PCR - H influenza - continue with ceftriaxone , total 7 day course - can DC antibiotics after tomorrows dose. Acute respiratory failure with mild distress. - on supplemental oxygen, wean as tolerated. Tachycardia, sinus - improved, -resume metoprolol 100 mg BID Leucocytosis - improving Elevated troponin - 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 - EKG- no ST elevation -follow troponin,- plateaued - no chest pain - ECHO - EF 68%, diastolic dysfunction -cardiology consult appreciated 6. HTN- resume home amlodipine and metoprolol 7. Mild hypokalemia -improved. 8. Elevated BS -likely steroid/stress - normal Hba1c 9. Dysphagia - speech eval- on dysphagia diet per speech. - GI consulted - defer EGD at this time - MBS/esophagogram 10 . Mild NORI - iv hydration, repeat BMP in AM. 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 - follow up with GI as an outpatient. Medical Decision Making Admitted for acute bronchitis with acute respiratory failure -On ceftriaxone for H. influenzae found in PCR. Total 7 days course. Can stop antibiotics after tomorrow's dose. -Improved breathing. On minimal supplemental oxygen. Home oxygen evaluation before discharge. -Barium swallow as well as barium esophagogram done today for dysphagia. Placed by esophagus found. GI recommend Protonix. Follow-up as an outpatient for EGD. -DC tomorrow, home with home health care. - PT/OT - labs in am. -am labs, replace lytes prn -increase activity -DVT prophylaxis: [x] Lovenox [] Heparin [] SCDs [x] Encourage ambulation [] Already on Anticoagulation Anticipated Discharge - Date - - Location - home with home health - Pending the following - Total time spent (which include face to face and non face to face encounters) : 45 minutes Toxic drug monitoring/narrow therapeutic index drug monitoring : # Drug name : # Route administered : # Method of monitoring : Extended Emergency Contact Information Primary Emergency Contact: Joycelyn Rodríguez Relation: Other Victorino Barnes MD Division of Hospitalist Medicine Inpatient Medical Services/[facility] [place] [facility]: [employer] Occupational Therapy Facility/Department: 2E Occupational Therapy Treatment NAME: Yelena Chandra : 1935 Date of Service: 08/05/2022 Discharge Recommendations: Home with clinical nursing assistant, 24 hour supervision or assist, Continue to assess pending progress Assessment Performance deficits / Impairments: Decreased functional mobility , Decreased ADL status, Decreased strength, Decreased safe awareness, Decreased cognition, Decreased endurance, Decreased balance, Decreased posture Assessment: Pt demoing good participation in OT this date, however demos cognitive deficits that are concerning for returning home. Pt required SBA for bed mobility, CGA-Min A for transfers and mobility, and SBA-CGA for ADLs. Pt required frequent cues for sequencing and safety during all tasks. She was initially recommended for HHC and 24/ supervision however if this level of of assist is not available, pt will need SNF. Prognosis: Fair History: Pt admitting 07/31 with weakness and SOB, found to have acute respiratory failure and acute bronchitis Exam: AM-PAC REQUIRES OT FOLLOW-UP: Yes Patient Diagnosis(es): The encounter diagnosis was Dyspnea. has a past medical history of Anxiety, Arthritis, and Hypertension. has a past surgical history that includes Hysterectomy; Dilation and curettage of uterus; and Tonsillectomy and adenoidectomy. Cognition/Orientation Overall Cognitive Status: Exceptions Arousal/Alertness: Appropriate responses to stimuli Following Commands: Follows one step commands with repetition, Follows one step commands with increased time Attention Span: Attends with cues to redirect Memory: Decreased short term memory Safety Judgement: Decreased awareness of need for safety, Decreased awareness of need for assistance Problem Solving: Decreased awareness of errors Insights: Decreased awareness of deficits Initiation: Requires cues for some Sequencing: Requires cues for some Overall Orientation Status: Within Functional Limits Subjective Subjective Subjective: Pt pleasant and cooperative but moderately confused during the session General Comments Comments: Per RN, pt OK too see. Pain Assessment Pain Assessment: No/denies pain Pain Score: 0 - No pain Objective Grooming/Oral Hygiene Assistance Level: Contact guard assist Skilled Clinical Factors: Pt stood at the sink to wash hands with CGA. Assist to reach the soap dispenser d/t shoulder issues. Cues for walker placement at the sink LE Dressing Assistance Level: Contact guard assist Skilled Clinical Factors: Pt able to thread B LEs into briefs but required CGA when standing to manage over her hips. Increased time required to complete Putting On/Taking Off Footwear Assistance Level: Stand by assist Skilled Clinical Factors: Pt able to don socks with SBA using figure 4 technique while seated at EOB this date. Toileting Assistance Level: Stand by assist Skilled Clinical Factors: Pt able to perform bathroom level toileting but required SBA, with cues for sequencing performing hygiene. Able to urinate. Balance Sitting Balance: Supervision Standing Balance: Contact guard assistance Standing Balance Time: ~ 1 minute Activity: static standing Comment: Pt stood at the sink with CGA for balance. FWW for safety. Functional Mobility Functional - Mobility Device: Rolling Walker Activity: To/from bathroom Assist Level: Minimal assistance Functional Mobility Comments: Pt required Min A for functional mobility to and from the bathroom, with assist to manage the walker and to problem solve navigating the environment. However, no overt LOB. Pt demos poor safety awareness and requires frequent cues. Toilet Transfers Toilet - Technique: Ambulating Equipment Used: Standard toilet Toilet Transfer: Minimal assistance Toilet Transfers Comments: Pt required cues for hand placement for the transfer and Min A to elevate from the toilet. Bed mobility Supine to Sit: Stand by assistance Sit to Supine: Unable to assess Scooting: Stand by assistance Comment: Pt required SBA for bed mobility with HOB elevated and use of bed rail for support. Additional time required to complete. Pt denied dizziness. She was seated in the recliner at the end of the session. Transfers Sit to stand: Contact guard assistance Stand to sit: Contact guard assistance Transfer Comments: Pt able to stand from the EOB to the FWW with CGA this date but required cues for hand placement. Plan Times per Week: 5 visits Current Treatment Recommendations: Strengthening, Balance Training, Functional Mobility Training, Endurance Training, Safety Education & Training, Patient/Caregiver Education & Training, Equipment Evaluation, Education, & procurement, Self-Care / ADL, Cognitive/Perceptual Training Plan Comment: POC and goals established in collaboration with the pt. Safety Safety Devices in place: Yes Type of devices: All fall risk precautions in place, Call light within reach, Patient at risk for falls, Gait belt, Nurse notified, Left in chair Restraints Initially in place: No AM-PAC Score AM-PAC Inpatient Daily Activity Raw Score: 17 ADL Inpatient CMS G-Code Modifier: CK Goals Encounter Problems Encounter Problems (Active) Balance Patient will tolerate standing with SUP for 3 minutes to allow for increased participation in functional activities (Progressing) Start: 08/02/22 Expected End: 08/09/22 Dressing Upper Extremities Patient will complete upper body dressing mod I (Not Addressed) Start: 08/02/22 Expected End: 08/09/22 Dressings Lower Extremities Patient will dress lower body with SUP (Progressing) Start: 08/02/22 Expected End: 08/09/22 Grooming Patient will complete daily grooming tasks sink level with SUP (Not Addressed) Start: 08/02/22 Expected End: 08/09/22 Mobility Patient will demonstrate functional mobility with SUP (Progressing) Start: 08/02/22 Expected End: 08/09/22 Toileting Patient will complete toileting tasks at standard toilet with supervision. (Progressing) Start: 08/02/22 Expected End: 08/09/22 Transfers Patient will complete functional transfer with rolling walker with supervision in order to prepare for ambulation. (Progressing) Start: 08/02/22 Expected End: 08/09/22 Education Education Given To: Patient Education Provided: OT Role, Plan of Care, Transfer Training, Fall Prevention Strategies Education Method: Demonstration, Verbal Barriers to Learning: None Education Outcome: Verbalized understanding, Demonstrated understanding, Continued education needed Therapy Time Individual Co-treatment Time In 1114 Time Out 1137 Minutes 23 Timed Code Treatment Minutes: 23 Minutes (1 ADL 1 TA) Haylee Serna OT Images from the original note were not included. Progress Note SUBJECTIVE: No acute events overnight. Barium swallow performed today. Medications @MEDCMED@ OBJECTIVE VITALS: BP 138/76 (BP Location: Left arm, Patient Position: Sitting) Pulse 70 Temp 35.8 C (96.5 F) (Temporal) Resp 19 Ht 1.626 m (5' 4") Wt 83 kg (183 lb) SpO2 97% PF (!) 18 L/min BMI 31.41 kg/m TEMPERATURE: Current - Temp: 35.8 C (96.5 F); Max - Temp Av.8 C (96.5 F) Min: 35.6 C (96.1 F) Max: 36.1 C (96.9 F) RESPIRATIONS RANGE: Resp Av.8 Min: 16 Max: 19 PULSE RANGE: Pulse Av.7 Min: 63 Max: 71 BLOOD PRESSURE RANGE: Systolic (24hrs), Av , Min:138 , Max:184 ; Diastolic (24hrs), Av, Min:76, Max:100 PULSE OXIMETRY RANGE: SpO2 Av.3 % Min: 97 % Max: 99 % 24HR INTAKE/OUTPUT: Intake/Output Summary (Last 24 hours) at 08/05/2022 1241 Last data filed at 08/05/2022 1151 Gross per 24 hour Intake 375 ml Output 2500 ml Net -2125 ml Body mass index is 31.41 kg/m . GENERAL: Pleasant and NAD. HEENT: NCAT, PERRLA, EOMI, Scleral anicteric. CV: RRR, NL S1/S2, no murmurs. LUNGS: CTA b/l but diminished. No W/R/R. Abdomen: + BS, soft, non-tender and non-distended. No rebound or guarding. Neurologic: A&O x 3, CN II-XII grossly intact. No asterixis. Non-focal. Psych: Normal affect and speech. Data Recent blood work, radiologic study and endoscopic study were reviewed with the patient. CBC: Recent Labs 08/04/22 0420 08/05/22 0350 WBC 12.0* 11.9* HGB 11.5* 11.5* HCT 35.5 36.0 PLT 357 355 HEPATIC: Recent Labs 08/04/2241908/05/22 0350 AST 37 46 ALT 24 23 BILITOT 0.2 0.3 ALKPHOS 85 72 LIPASE/AMYLASE: No results for input(s): AMYLASE, LIPASE in the last 72 hours. LACTATE: No lab exists for component: LACTA BNP: No results for input(s): BNP in the last 72 hours. INR: No results for input(s): INR in the last 72 hours. 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 Date: 08/05/2022 SUBJECTIVE: Elevated troponin. 0.06>>> 0.03 VITALS BP (!) 184/97 (BP Location: Left arm, Patient Position: Lying) Pulse 64 Temp 35.6 C (96.1 F) (Temporal) Resp 18 Ht 5' 4" (1.626 m) Wt 183 lb (83 kg) SpO2 97% PF (!) 18 L/min BMI 31.41 kg/m I&OHelen is a 87 y.o. female with past medical history of anxiety, HTN, OA presented with above complaints. Has been having cough with purulent sputum for the last 2-3 days. Woke up today morning with discharge from both eyes with redness of eyes. Was tired. Had some upper respiratory illness going around in the house before she caught it. No fever or chills. No chest pain. SOB present. No leg swelling Intake/Output Summary (Last 24 hours) at 08/05/2022 0946 Last data filed at 08/05/2022 0816 Gross per 24 hour Intake 250 ml Output 2300 ml Net -2050 ml OBJECTIVE: 10 systems reviewed as seen below Neck: Neck JVP 0, No carotid bruits, thyroid not enlarged Cardiovascular system: NSR, Short systolic murmur, no gallop Chest: normal breath sounds Abdomen: Abdomen soft/non-tender, no organomegaly, bowel sounds present Extremities: No edema, no varicosity Endocrine : Hypothyroidism No Diabites No GI system : GIB No Renal : CKD No MICROELECTRONICS ENGINEER : CVA/TIA No Musculoskeletal system : DJD No LAB Lab Results Component Value Date NA 137 08/05/2022 K 4.4 08/05/2022 CL 105 08/05/2022 CO2 32 (H) 08/05/2022 BUN 33 (H) 08/05/2022 CREATININE 0.98 08/05/2022 GLUCOSE 112 (H) 08/05/2022 CALCIUM 8.1 (L) 08/05/2022 Lab Results Component Value Date WBC 11.9 (H) 08/05/2022 HGB 11.5 (L) 08/05/2022 HCT 36.0 08/05/2022 MCV 85.0 08/05/2022 PLT 355 08/05/2022 Lab Results Component Value Date TROPONINI 0.031 08/01/2022 Lab Results Component Value Date TSH 0.882 06/18/2021 No components found for: LABA1C No components found for: EAG Recent Labs 08/05/22 0350 ALKPHOS 72 ALT 23 AST 46 BILITOT 0.3 Lab Results Component Value Date BNP 6,597 (H) 07/31/2022 CARDIAC TESTING EKG: Encounter Date: 07/31/22 ECG 12 lead Result Value Heart Rate 59 QRSD Interval 120 QT Interval 456 QTC Interval 452 P [place] 66 QRS [place] 41 T Wave [place] -2 DE Interval 168 Impression SINUS RHYTHM RBBB Compared to ECG 07/31/2022 16:55:55 Sinus tachycardia no longer present Electronically Signed On 08-04-2022 14:23:15 EDT by Peggy Carson Echo: Transthoracic echocardiogram (TTE) complete with contrast, bubble, strain, and 3D PRN Result Date: 08/01/2022 Left Ventricle: Left ventricle size is normal. Normal wall thickness. Normal left ventricular systolic function. EF by 2D Simpsons Biplane is 68%. Normal wall motion. Diastolic dysfunction present with increased LAP with normal LVEF. Average E/e' ratio is 19.17. Right Ventricle: Right ventricle size is normal. Normal systolic function. Tricuspid Valve: RVSP 32 mmHg above RA pressure; RVSP therefore may be normal or mildly elevated. No significant valvular abnormalities. Troponin: Stress Test: GBD=2355. Cardiac Cath: X RAY CHEST, NO INFILTERATE. IMPRESSION : STRESS INDUCED TROPONIN ELEVATION. DUE TO BRONCHITIS & POSSIBLE HYPOXIA, TYPE 2 NSTMI. BRONCHITIS. >>NO INFILTERATE. PLAN : ECHO.>>EF=68 %.. NO WMA. FOLLOW ENZYME,/ CRF. PT/OT. HAVING JERRY PENA. SIERRA OJEDA M.D., FACC 08/05/2022 [facility] Respiratory Care Department Progress Note As part of the Respiratory Assessment Program (RAP), the following Respiratory Therapist evaluation has been completed, including a chart review and clinical/physical assessment. Respiratory Therapist RAP Evaluation Guideline Points 0 1 2 3 4 Points Strongly Consider History Factor No Pulmonary conditions Stable Pulmonary condition(s) Surgery or Intervention that may impact Pulmonary system (at risk) Surgery or Intervention that is impacting Pulmonary system Active Exacerbation of Pulmonary Condition 1 Respiratory Pattern Regular, RR= 12-18 RAY or Increased RR= 19-24 Irregular, or RR= 25-30 SOB, talk in short sentences, or RR= 31-35 Severe SOB, accessory muscle use, one word answers, or RR>35 0 Aerosol Med(s), High Flow O2 Breath Sounds Clear Diminished in 1 lobe Diminished in ? 2 lobes Adventitious breath sounds Coarse crackles, Wheezes, or Diminished in >2 lobes 2 Aerosol Med(s), Bronchial Hygiene, Hyperinflation Cough & Sputum Strong cough, no secretion retention or production Weak cough, no secretion retention or production Weak cough, w/ production (less often than Q2hr), or secretion retention No cough, w/ secretion retention or production (less often than Q2hr) Significant secretion production (more often than Q2hr) or mucus plug 0 Aerosol Med(s), Bronchial Hygiene, Hyperinflation Level of Activity Ambulatory Ambulatory with Assist Up in chair or edge of bed (dangle) Non-ambulatory, bedridden with active ROM Completely paralyzed or without active ROM 0 Triage 5 0-2 Triage 4 3-5 Triage 3 6-10 Triage 2 11-14 Triage 1 ?15 Total 3 Triage Score = 4 TRIAGE SCORING - SUGGESTED FREQUENCIES Aerosol Therapy Bronchial Hygiene Hyperinflation Triage Score Q4h & PRN 1 Q4hWA (QID) & PRN 2 TID & PRN 3 BID & PRN 4 PRN 5 Therapy(s) Indicated Yes/No Aerosol Medication Hyperinflation Bronchial Hygiene High Flow Oxygen Flow Rates PEF (L/Sec) IVC FVC FEV1 FEV1/FVC RT to enter/modify frequency of treatment order in EMR/EHR to match this RAP evaluation. Based on this RAP evaluation the following therapy is being changd to keenanonedami BID Comments: Thank you for involving [facility] in the care of this patient, Images from the original note were not included. Hospitalist Progress Note 08/04/[phone]: Please page me ([phone]) for patient care issues. [phone]: Please page [facility] Hospitalist for any issues. Subjective: Admit Date: 07/31/2022 PCP: Yenifer Schulz DO Room#: B2-254/B2-651 A Interval History: Seen and examined. Still having issues with swallowing. Does not want surgery, but Ok with procedure. Breathing improved. Not much cough or expectoration. Adult diet Dysphagia - Soft and Bite Sized @[id number]@ 24HR INTAKE/OUTPUT: Intake/Output Summary (Last 24 hours) at 08/04/2022 1304 Last data filed at 08/03/2022 1822 Gross per 24 hour Intake 500 ml Output -- Net 500 ml Past Medical History: Past Medical History: Diagnosis Date Anxiety Arthritis Hypertension LABS: CBC: Recent Labs 08/02/228 08/04/22419 WBC 12.3* 12.0* RBC 3.99 4.21 HGB 11.0* 11.5* HCT 34.0* 35.5 MCV 85.3 84.4 RDW 13.4 13.3 PLT 262 357 BMP: Recent Labs 08/03/2231708/04/22419 NA 138 136 K 4.3 4.0 CL 106 105 CO2 28 30 BUN 39* 35* CREATININE 1.13* 1.09* GLUCOSE 135* 155* CALCIUM 8.5 8.4 ANIONGAP 4 1* LIVER PROFILE: Recent Labs 08/03/2231708/04/22419 AST 34 37 ALT 20 24 BILITOT 0.3 0.2 ALKPHOS 89 85 PROT 6.9 6.4 PT/INR: No results for input(s): PROTIME, INR in the last 72 hours. CARDIAC ENZYMES: No results for input(s): TROPONINI in the last 72 hours. Procalcitonin: No results found for: PROCAL COVID-19 PCR: No results for input(s): COVID19 in the last 72 hours. Objective: Vitals: BP (!) 148/82 Pulse 67 Temp 36.2 C (97.1 F) (Temporal) Resp 18 Ht 5' 4" (1.626 m) Wt 183 lb (83 kg) SpO2 96% PF (!) 18 L/min BMI 31.41 kg/m Pulse Ox: SpO2 Av.9 % Min: 95 % Max: 100 % Physical Exam Constitutional: Appearance: Normal appearance. HENT: Mouth/Throat: Mouth: Mucous membranes are moist. Cardiovascular: Rate and Rhythm: Normal rate and regular rhythm. Heart sounds: Normal heart sounds. Pulmonary: Effort: Pulmonary effort is normal. Comments: Occasional wheeze. Abdominal: General: Bowel sounds are normal. Palpations: Abdomen is soft. Musculoskeletal: Cervical back: Neck supple. Comments: Trace edema Neurological: Mental Status: She is alert and oriented to person, place, and time. Psychiatric: Mood and Affect: Mood normal. Medications: amLODIPine, 7.5 mg, Oral, Daily aspirin, 81 mg, Oral, Daily budesonide, 0.5 mg, Nebulization, BID cefTRIAXone, 1,000 mg, IntraVENous, q24h enoxaparin, 40 mg, SubCUTAneous, Daily guaiFENesin, 600 mg, Oral, BID influenza, 0.5 mL, IntraMUSCular, Once ipratropium-albuterol, 3 mL, Nebulization, Q4H metoprolol tartrate, 100 mg, Oral, BID nystatin, 5 mL, Swish & Swallow, BID predniSONE, 40 mg, Oral, Daily sodium chloride 0.9%, 10 mL, IntraVENous, 2 times per day Assessment Acute purulent bronchitis with possible underlying pneumonia - pneumonia PCR - H influenza - continue with ceftriaxone , total 7 day course Acute respiratory failure with mild distress. - on supplemental oxygen, wean as tolerated. Tachycardia, sinus - improved, -resume metoprolol 100 mg BID Leucocytosis - improving Elevated troponin - 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 - EKG- no ST elevation -follow troponin,- plateaued - no chest pain - ECHO - EF 68%, diastolic dysfunction -cardiology consult appreciated 6. HTN- resume home amlodipine and metoprolol 7. Mild hypokalemia -improved. 8. Elevated BS -likely steroid/stress - normal Hba1c 9. Dysphagia - speech eval- on dysphagia diet per speech. - GI consulted - defer EGD at this time - MBS/esophagogram - 10 . Mild NORI - iv hydration, repeat BMP in AM. Medical Decision Making Admitted for acute bronchitis with acute respiratory failure -Still having trouble swallowing. We will get modified barium swallow swallow as well as barium esophagogram. Does not want to proceed procedures or surgeries but okay with it. -Improving breathing. We will wean oxygen as tolerated. Still on 4 L. Continue with ceftriaxone and prednisone. - PT/OT - labs in am. -am labs, replace lytes prn -increase activity -DVT prophylaxis: [x] Lovenox [] Heparin [] SCDs [x] Encourage ambulation [] Already on Anticoagulation Anticipated Discharge - Date - 08/05 - Location - home with home PT. - Pending the following - clinical improvement Total time spent (which include face to face and non face to face encounters) : 35 minutes Toxic drug monitoring/narrow therapeutic index drug monitoring : # Drug name : # Route administered : # Method of monitoring : Extended Emergency Contact Information Primary Emergency Contact: Joycelyn Rodríguez Relation: Other Victorino Barnes MD Division of Hospitalist Medicine [place] Medical [place] [place]: Epic chat Cardiology Progress Note Patient Name: Yelena Chandra Patient Age: 87 y.o. Date: 08/04/2022 SUBJECTIVE: Elevated troponin. 0.06>>> 0.03 VITALS BP (!) 148/82 Pulse 67 Temp 36.2 C (97.1 F) (Temporal) Resp 18 Ht 5' 4" (1.626 m) Wt 183 lb (83 kg) SpO2 96% PF (!) 18 L/min BMI 31.41 kg/m Susie is a 87 y.o. female with past medical history of anxiety, HTN, OA presented with above complaints. Has been having cough with purulent sputum for the last 2-3 days. Woke up today morning with discharge from both eyes with redness of eyes. Was tired. Had some upper respiratory illness going around in the house before she caught it. No fever or chills. No chest pain. SOB present. No leg swelling Intake/Output Summary (Last 24 hours) at 08/04/2022 1139 Last data filed at 08/03/2022 1828 Gross per 24 hour Intake 850 ml Output -- Net 850 ml OBJECTIVE: 10 systems reviewed as seen below Neck: Neck JVP 0, No carotid bruits, thyroid not enlarged Cardiovascular system: NSR, Short systolic murmur, no gallop Chest: normal breath sounds Abdomen: Abdomen soft/non-tender, no organomegaly, bowel sounds present Extremities: No edema, no varicosity Endocrine : Hypothyroidism No Diabites No GI system : GIB No Renal : CKD No MICROELECTRONICS ENGINEER : CVA/TIA No Musculoskeletal system : DJD No LAB Lab Results Component Value Date NA 136 08/04/2022 K 4.0 08/04/2022 CL 105 08/04/2022 CO2 30 08/04/2022 BUN 35 (H) 08/04/2022 CREATININE 1.09 (H) 08/04/2022 GLUCOSE 155 (H) 08/04/2022 CALCIUM 8.4 08/04/2022 Lab Results Component Value Date WBC 12.0 (H) 08/04/2022 HGB 11.5 (L) 08/04/2022 HCT 35.5 08/04/2022 MCV 84.4 08/04/2022 PLT 357 08/04/2022 Lab Results Component Value Date TROPONINI 0.031 08/01/2022 Lab Results Component Value Date TSH 0.882 06/18/2021 No components found for: LABA1C No components found for: EAG Recent Labs 08/04/22 0420 ALKPHOS 85 ALT 24 AST 37 BILITOT 0.2 Lab Results Component Value Date BNP 6,597 (H) 07/31/2022 CARDIAC TESTING EKG: Encounter Date: 07/31/22 ECG 12 lead Result Value Heart Rate 59 QRSD Interval 120 QT Interval 456 QTC Interval 452 P [place] 66 QRS La Center 41 T Wave La Center -2 DE Interval 168 Impression SINUS RHYTHM IVCD, CONSIDER ATYPICAL RBBB Compared to ECG 07/31/2022 16:55:55 Sinus tachycardia no longer present Incomplete right bundle-branch block no longer present Echo: Transthoracic echocardiogram (TTE) complete with contrast, bubble, strain, and 3D PRN Result Date: 08/01/2022 Left Ventricle: Left ventricle size is normal. Normal wall thickness. Normal left ventricular systolic function. EF by 2D Simpsons Biplane is 68%. Normal wall motion. Diastolic dysfunction present with increased LAP with normal LVEF. Average E/e' ratio is 19.17. Right Ventricle: Right ventricle size is normal. Normal systolic function. Tricuspid Valve: RVSP 32 mmHg above RA pressure; RVSP therefore may be normal or mildly elevated. No significant valvular abnormalities. Troponin: Stress Test: BMG=8840. Cardiac Cath: X RAY CHEST, NO INFILTERATE. IMPRESSION : STRESS INDUCED TROPONIN ELEVATION. DUE TO BRONCHITIS & POSSIBLE HYPOXIA, TYPE 2 NSTMI. BRONCHITIS. >>NO INFILTERATE. PLAN : ECHO.>>EF=68 %.. NO WMA. FOLLOW ENZYME,/ CRF. SIERRA OJEDA M.D., FACC 08/04/2022 Cardiology Progress Note Patient Name: Yelena Chandra Patient Age: 87 y.o. Date: 08/03/2022 SUBJECTIVE: Elevated troponin. 0.06>>> 0.03 VITALS BP (!) 171/82 Pulse 65 Temp 36.4 C (97.5 F) (Temporal) Resp 18 Ht 5' 4" (1.626 m) Wt 183 lb (83 kg) SpO2 97% PF (!) 18 L/min BMI 31.41 kg/m Susie is a 87 y.o. female with past medical history of anxiety, HTN, OA presented with above complaints. Has been having cough with purulent sputum for the last 2-3 days. Woke up today morning with discharge from both eyes with redness of eyes. Was tired. Had some upper respiratory illness going around in the house before she caught it. No fever or chills. No chest pain. SOB present. No leg swelling No intake or output data in the 24 hours ending 08/03/22 1121 OBJECTIVE: 10 systems reviewed as seen below Neck: Neck JVP 0, No carotid bruits, thyroid not enlarged Cardiovascular system: NSR, Short systolic murmur, no gallop Chest: normal breath sounds Abdomen: Abdomen soft/non-tender, no organomegaly, bowel sounds present Extremities: No edema, no varicosity Endocrine : Hypothyroidism No Diabites No GI system : GIB No Renal : CKD No MICROELECTRONICS ENGINEER : CVA/TIA No Musculoskeletal system : DJD No LAB Lab Results Component Value Date NA 138 08/03/2022 K 4.3 08/03/2022 CL 106 08/03/2022 CO2 28 08/03/2022 BUN 39 (H) 08/03/2022 CREATININE 1.13 (H) 08/03/2022 GLUCOSE 135 (H) 08/03/2022 CALCIUM 8.5 08/03/2022 Lab Results Component Value Date WBC 12.3 (H) 08/02/2022 HGB 11.0 (L) 08/02/2022 HCT 34.0 (L) 08/02/2022 MCV 85.3 08/02/2022 PLT 262 08/02/2022 Lab Results Component Value Date TROPONINI 0.031 08/01/2022 Lab Results Component Value Date TSH 0.882 06/18/2021 No components found for: LABA1C No components found for: EAG Recent Labs 03/11/23 0318 ALKPHOS 89 ALT 20 AST 34 BILITOT 0.3 Lab Results Component Value Date BNP 6,597 (H) 07/31/2022 CARDIAC TESTING EKG: Encounter Date: 07/31/22 ECG 12 lead Result Value Heart Rate 59 QRSD Interval 120 QT Interval 456 QTC Interval 452 P La Center 66 QRS La Center 41 T Wave La Center -2 DE Interval 168 Impression SINUS RHYTHM IVCD, CONSIDER ATYPICAL RBBB Compared to ECG 07/31/2022 16:55:55 Sinus tachycardia no longer present Incomplete right bundle-branch block no longer present Echo: Transthoracic echocardiogram (TTE) complete with contrast, bubble, strain, and 3D PRN Result Date: 08/01/2022 Left Ventricle: Left ventricle size is normal. Normal wall thickness. Normal left ventricular systolic function. EF by 2D Simpsons Biplane is 68%. Normal wall motion. Diastolic dysfunction present with increased LAP with normal LVEF. Average E/e' ratio is 19.17. Right Ventricle: Right ventricle size is normal. Normal systolic function. Tricuspid Valve: RVSP 32 mmHg above RA pressure; RVSP therefore may be normal or mildly elevated. No significant valvular abnormalities. Troponin: Stress Test: DJG=2963. Cardiac Cath: X RAY CHEST, NO INFILTERATE. IMPRESSION : STRESS INDUCED TROPONIN ELEVATION. DUE TO BRONCHITIS & POSSIBLE HYPOXIA, TYPE 2 NSTMI. PLAN : ECHO.>>EF=68 %.. NO WMA. FOLLOW ENZYME,/ CRF. SIERRA OJEDA M.D., [facility] 08/03/2022 Images from the original note were not included. Hospitalist Progress Note 08/03/2022 [phone]: Please page me ([phone]) for patient care issues. [phone]: Please page [facility] Hospitalist for any issues. Subjective: Admit Date: 07/31/2022 PCP: Yenifer Schulz DO Room#: B2-254/B2-254 A Interval History: Say eating better. Difficulty swallowing on occasions. Still wheezing, not much expectoration. Afebrile Adult diet Dysphagia - Soft and Bite Sized @[id number]@ 24HR INTAKE/OUTPUT: No intake or output data in the 24 hours ending 08/03/22 1049 Past Medical History: Past Medical History: Diagnosis Date Anxiety Arthritis Hypertension LABS: CBC: Recent Labs 07/31/22 1640 08/02/22 0138 WBC 11.5* 12.3* RBC 4.35 3.99 HGB 12.1 11.0* HCT 36.8 34.0* MCV 84.6 85.3 RDW 13.3 13.4 PLT 263 262 BMP: Recent Labs 07/31/22 1640 08/01/22 1148 08/03/22 0318 NA 137 137 138 K 3.3* 3.7 4.3 CL 102 103 106 CO2 30 29 28 BUN 15 21* 39* CREATININE 0.92 1.04 1.13* GLUCOSE 147* 177* 135* CALCIUM 8.8 8.6 8.5 ANIONGAP 4 5 4 LIVER PROFILE: Recent Labs 08/01/22 1148 08/03/22 0318 AST 27 34 ALT 14 20 BILITOT 0.5 0.3 ALKPHOS 85 89 PROT 6.7 6.9 PT/INR: No results for input(s): PROTIME, INR in the last 72 hours. CARDIAC ENZYMES: Recent Labs 07/31/22 2321 08/01/22 0505 08/01/22 1148 TROPONINI 0.060* 0.047* 0.031 Procalcitonin: Lab Results Component Value Date PROCAL 0.13 (H) 07/31/2022 COVID-19 PCR: No results for input(s): COVID19 in the last 72 hours. Objective: Vitals: BP (!) 171/82 Pulse 65 Temp 36.4 C (97.5 F) (Temporal) Resp 18 Ht 5' 4" (1.626 m) Wt 183 lb (83 kg) SpO2 97% PF (!) 18 L/min BMI 31.41 kg/m Pulse Ox: SpO2 Av.5 % Min: 93 % Max: 99 % Physical Exam Vitals reviewed. Constitutional: General: She is not in acute distress. Appearance: Normal appearance. She is obese. HENT: Mouth/Throat: Mouth: Mucous membranes are moist. Cardiovascular: Rate and Rhythm: Normal rate. Heart sounds: Normal heart sounds. Pulmonary: Effort: Pulmonary effort is normal. Breath sounds: Wheezing and rhonchi present. Abdominal: General: Bowel sounds are normal. Palpations: Abdomen is soft. Tenderness: There is no abdominal tenderness. Musculoskeletal: Cervical back: Neck supple. Comments: Trace edema Skin: General: Skin is warm. Neurological: General: No focal deficit present. Mental Status: She is alert. Psychiatric: Mood and Affect: Mood normal. Medications: lactated Ringer's, 75 mL/hr [START ON 08/04/2022] amLODIPine, 7.5 mg, Oral, Daily aspirin, 81 mg, Oral, Daily budesonide, 0.5 mg, Nebulization, BID cefTRIAXone, 1,000 mg, IntraVENous, q24h enoxaparin, 40 mg, SubCUTAneous, Daily guaiFENesin, 600 mg, Oral, BID influenza, 0.5 mL, IntraMUSCular, Once ipratropium-albuterol, 3 mL, Nebulization, Q4H metoprolol tartrate, 100 mg, Oral, BID nystatin, 5 mL, Swish & Swallow, BID predniSONE, 40 mg, Oral, Daily sodium chloride 0.9%, 10 mL, IntraVENous, 2 times per day Assessment Acute purulent bronchitis with possible underlying pneumonia - pneumonia PCR - H influenza - continue with ceftriaxone , total 7 day course Acute respiratory failure with mild distress. - on supplemental oxygen, wean as tolerated. Tachycardia, sinus - improved, -resume metoprolol 100 mg BID Leucocytosis - improving Elevated troponin - 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 - EKG- no ST elevation -follow troponin,- plateaued - no chest pain - ECHO - EF 68%, diastolic dysfunction -cardiology consult appreciated 6. HTN- resume home amlodipine and metoprolol 7. Mild hypokalemia -improved. 8. Elevated BS -likely steroid/stress - normal Hba1c 9. Dysphagia - speech eval- on dysphagia diet per speech. - GI consulted - defer EGD at this time - if here till Friday, plan for cookie swallow. 10 . Mild NORI - iv hydration, repeat BMP in AM. Medical Decision Making Admitted for acute bronchitis with acute respiratory failure - continue ceftriaxone - still wheezing- continue with prednisone, pulmicort , BD - on supplemental oxygen- wean as tolerated. - on dysphagia diet - GI consult appreciated - defer EGD at present - mild NORI noted- gentle hydration with LR 75ml/hr for 6 hours - encourage oral hydration - labs in am. - PT/OT - labs in am. -am labs, replace lytes prn -increase activity -DVT prophylaxis: [x] Lovenox [] Heparin [] SCDs [x] Encourage ambulation [] Already on Anticoagulation Anticipated Discharge - Date - 08/05 - Location - home with home PT. - Pending the following - clinical improvement Total time spent (which include face to face and non face to face encounters) : 35 minutes Toxic drug monitoring/narrow therapeutic index drug monitoring : # Drug name : # Route administered : # Method of monitoring : Extended Emergency Contact Information Primary Emergency Contact: Joycelyn Rodríguez Relation: Other Victorino Barnes MD Division of Hospitalist Medicine Inpatient Medical Services[place] [place]: [employer] chat Physical Therapy Facility/Department: [facility] Physical Therapy Initial Evaluation NAME: Yelena Chandra : 1935 Date of Service: 08/02/2022 Discharge Recommendations: 24 hour supervision or assist, Home with Home health PT PT Equipment Recommendations Equipment Needed: No Assessment Assessment: Pt presents with noted deficits after admission 07/31 with generalized weakness, acute bronchitis. At baseline she is IND with FWW, lives with sister. She demo transfers and ambulation with FWW and SBA. Pt with some decreased safety awareness but no LOB, will benefit from [facility] PT and 24 hr SUP to promote safety and decrease falls risk Performance Deficits/Impairments: Decreased functional mobility , Decreased safe awareness, Decreased endurance, Decreased balance, Decreased strength Decision Making: Medium Complexity Exam: [facility] Clinical Presentation: Pt admitted 07/31 with weakness, bronchitis. She has medical history as indicated which contribute to her clinical presentation. She demo transfers and ambulation with FWW and SBA, rec [facility] PT and 24 hr SUP Barriers to Learning: cognition Requires PT Follow-Up: Yes Barriers to Learning: cognition Activity Tolerance Activity Tolerance: Patient Tolerated treatment well Patient Diagnosis(es): The encounter diagnosis was Dyspnea. has a past medical history of Anxiety, Arthritis, and Hypertension. has a past surgical history that includes Hysterectomy; Dilation and curettage of uterus; and Tonsillectomy and adenoidectomy. Restrictions Restrictions/Precautions Restrictions/Precautions: General Precautions, Fall Risk Required Braces or Orthoses?: No Vision/Hearing Vision: Within Functional Limits Hearing: Functional/adequate for paticipation in therapy Cognition/Orientation Overall Cognitive Status: Exceptions Arousal/Alertness: Appropriate responses to stimuli Following Commands: Follows one step commands with repetition, Follows one step commands with increased time, Follows one step commands consistently Attention Span: Attends with cues to redirect Memory: Decreased short term memory Safety Judgement: Decreased awareness of need for safety, Decreased awareness of need for assistance Problem Solving: Decreased awareness of errors Insights: Decreased awareness of deficits Initiation: Requires cues for some Sequencing: Requires cues for some Overall Orientation Status: Within Functional Limits Subjective General Chart Reviewed: Yes Patient Assessed for Rehabilitation Services: Yes Family / Caregiver Present: No Follows Commands: Within Functional Limits General Comment Comments: Per RN pt okay for therapy Subjective Subjective: Pt pleasant and agree to PT Pain Assessment Pain Assessment: No/denies pain Social/Functional History Social/Functional History Lives With: Family (sister and brother in law) Type of Home: House Home Layout: Two level, Performs ADL's on one level, Able to Live on Main level with bedroom/bathroom Home Access: Stairs to enter with rails Entrance Stairs - Number of Steps: 4 Bathroom Shower/Tub: Tub/Shower unit Bathroom Toilet: Standard Bathroom Equipment: Grab bars in shower, Grab bars around toilet Bathroom Accessibility: Walker accessible Home Equipment: Rolling walker, Cane Receives Help From: Family ADL Assistance: Independent Homemaking Assistance: Needs assistance Homemaking Responsibilities: No Ambulation Assistance: Independent (with walker vs cane) Transfer Assistance: Independent Active Senior Radiation Therapist: No Objective Observation/Palpation Posture: Fair Observation: 3.5L O2, tele Gross Assessment Gross Assessment: Yes AROM: Within functional limits Strength: Generally decreased, functional Tone: Normal Sensation: Intact Gross Assessment: Yes AROM: Within functional limits Strength: Generally decreased, functional Tone: Normal Sensation: Intact Bed mobility Comment: NT-seated EOB pre and post session Transfers Sit to Stand: Stand by assistance Stand to sit: Stand by assistance Comment: Pt complete functional transfer to [facility] SBA. She demo good hand placement, no LOB noted. She demo good eccentric control to sit Ambulation Ambulation: Yes Ambulation 1 Surface 1: Level tile Device 1: Rolling walker Assistance 1: Standby assistance Quality of Gait 1: No LOB, reciprocal stepping, slow kathleen Quality of Gait Comment 1: Pt ambulate with FWW and SBA. She demo short reciprocal pattern with no LOB, demo decreased kathleen and step length, slight increased proximity from FWW Distance (ft) 1: ~150 ft Comments 1: Therapist cues pt for proximity to FWW, cues for upright trunk and reciprocal equal pattern. Therapist cues pt for energy conservation and pursed lip breathing pattern. Therapist cues pt to maintain GILLIAN inside FWW while turning. Balance Posture: Good Sitting - Static: Good Sitting - Dynamic: Good Standing - Static: Fair Standing - Dynamic: Fair, - Plan # of visits: 5 visits Current Treatment Recommendations: Strengthening, Balance Training, Functional Mobility Training, Transfer Training, Endurance Training, Equipment Evaluation, Education, & procurement, Patient/Caregiver Education & Training, Safety Education & Training, Home Exercise Program, Stair training, Gait Training, Pain Management, Positioning Plan Comment: goals and treatment plan established in collaboration with pt Safety Safety Devices Safety Devices in Place: Yes Type of Devices: Patient at risk for falls, All fall risk precatuions in place, Left in bed, Call light within reach, Gait belt, Nurse notified, Bed alarm in place Restraints Restraints Initially in Place: No AM-PAC Score AM-PAC Inpatient Mobility Raw Score: 20 Mobility Inpatient CMS G-Code Modifier: CJ Goals Encounter Problems Encounter Problems (Active) Exercise Patient will complete lower extremity exercises for 1-2 sets / 5-10 reps in order to improve strength and activity tolerance for mobility. Start: 08/02/22 Expected End: 08/09/22 Mobility Patient will ambulate 100 feet with modified independence and rolling walker in order to improve safety and independence with mobility. Start: 08/02/22 Expected End: 08/09/22 Patient will ascend and descend 4 stairs with least restrictive device and supervision in order to safely negotiate home. Start: 08/02/22 Expected End: 08/09/22 Pain - Adult Transfers Patient will perform bed mobility with modified independence in order to improve independence and prepare for out of bed mobility. Start: 08/02/22 Expected End: 08/09/22 Patient will complete sit to stand transfer with modified independence to rolling walker in order to improve safety and prepare for out of bed mobility. Start: 08/02/22 Expected End: 08/09/22 Education Education Given To: Patient Education Provided: Goals, Energy Conservation, PT Role, General Safety, Gait Training, Plan of Care, Discharge recommendations, Functional Mobility Training, Equipment, Precautions, Transfer Training, Injury Prevention Education Method: Demonstration, Verbal Barriers to Learning: None Education Outcome: Demonstrated understanding, Verbalized understanding, Continued education needed Therapy Time Individual Co-treatment Time In 1359 Time Out 1411 Minutes 12 Mack Holt PT Occupational Therapy Facility/Department: [address] Occupational Therapy Initial Evaluation NAME: Yelena Chandra : 1935 Date of Service: 08/02/2022 Discharge Recommendations: 24 hour supervision or assist, Home with Home health OT, Continue to assess pending progress OT Equipment Recommendations Equipment Needed: No Assessment Performance deficits / Impairments: Decreased functional mobility , Decreased ADL status, Decreased strength, Decreased safe awareness, Decreased cognition, Decreased endurance, Decreased balance, Decreased posture Assessment: Pt admitting 07/31 with weakness and SOB, found to have acute respiratory failure and acute bronchitis. Pt was previously independent with ADLs and functional mobility with fww vs cane. Pt is currently SBA-mod A with ADLs and min A with functional mobility using fww. Pt is liited by decreased safety awareness, weakness, balance deficits, and poor activity tolerance.Pt is functioning below baseline and would benefit from skilled OT services to maximize safety and independence with ADLs and functional mobility. Rec home with [facility] and 24 hr SUP pending progress Prognosis: Fair Decision Making: Medium Complexity History: Pt admitting 07/31 with weakness and SOB, found to have acute respiratory failure and acute bronchitis Exam: AM-PAC Assistance / Modification: min A REQUIRES OT FOLLOW-UP: Yes Activity Tolerance Activity Tolerance: Patient limited by fatigue, Treatment limited secondary to decreased cognition Patient Diagnosis(es): The encounter diagnosis was Dyspnea. has a past medical history of Anxiety, Arthritis, and Hypertension. has a past surgical history that includes Hysterectomy; Dilation and curettage of uterus; and Tonsillectomy and adenoidectomy. Restrictions Restrictions/Precautions Restrictions/Precautions: General Precautions, Fall Risk Required Braces or Orthoses?: No Vision/Hearing Vision: Within Functional Limits Hearing: Functional/adequate for paticipation in therapy Cognition/Orientation Overall Cognitive Status: Exceptions Arousal/Alertness: Appropriate responses to stimuli Following Commands: Follows one step commands with repetition, Follows one step commands with increased time Attention Span: Attends with cues to redirect Memory: Decreased short term memory Safety Judgement: Decreased awareness of need for safety, Decreased awareness of need for assistance Problem Solving: Decreased awareness of errors Insights: Decreased awareness of deficits Initiation: Requires cues for some Sequencing: Requires cues for some Overall Orientation Status: Within Functional Limits Subjective General Chart Reviewed: Yes Patient Assessed for Rehabilitation Services: Yes Family / Caregiver Present: No Subjective Subjective: Pt sitting EOB at arrival, pleasant and agreeable. General Comments Comments: Per RN, pt ok to see. Pain Assessment Pain Assessment: No/denies pain Social/Functional History Social/Functional History Lives With: Family (sister and brother in law) Type of Home: House Home Layout: Two level, Performs ADL's on one level, Able to Live on Main level with bedroom/bathroom Home Access: Stairs to enter with rails Entrance Stairs - Number of Steps: 4 Bathroom Shower/Tub: Tub/Shower unit Bathroom Toilet: Standard Bathroom Equipment: Grab bars in shower, Grab bars around toilet Bathroom Accessibility: Walker accessible Home Equipment: Rolling walker, Cane Receives Help From: Family ADL Assistance: Independent Homemaking Assistance: Needs assistance Homemaking Responsibilities: No Ambulation Assistance: Independent (with walker vs cane) Transfer Assistance: Independent Active Senior Radiation Therapist: No Objective Gross Assessment: Yes AROM: Generally decreased, functional (mildly limited shoulder ROM, WFL) PROM: Generally decreased, functional Strength: Generally decreased, functional (grossly 4/5) Coordination: Generally decreased, functional Tone: Normal Sensation: Intact (no c/o numbness or tingling) Observation/Palpation Posture: Fair Observation: 3.5 L O2 in tact, SpO2 >92% throughout session, tele in tact Balance Sitting Balance: Supervision Standing Balance: Contact guard assistance Standing Balance Time: ~2 minutes total Activity: static standing, clothing mgmt, hand hygiene Comment: Pt standing at fww with VCs for safety, no true LOB however mild instability noted. Functional Mobility Functional - Mobility Device: Rolling Walker Activity: To/from bathroom, Other (to/from door) Assist Level: Minimal assistance Functional Mobility Comments: Min A for balance and fww mgmt with VCs for safety and managing walker. No true LOB noted however pt with mild unsteadiness. Increased SOB and fatigue noted however SpO2 WFL Toilet Transfers Toilet - Technique: Ambulating Equipment Used: Standard toilet Toilet Transfer: Minimal assistance Toilet Transfers Comments: Assist for elevation, balance, and controlled descent with VCs forsafe hand placement with good carryover. No true LOB ADL Feeding: Setup Grooming: Contact guard assistance UE Bathing: Minimal assistance LE Bathing: Moderate assistance UE Dressing: Minimal assistance LE Dressing: Moderate assistance Toileting: Minimal assistance Additional Comments: Pt was previously independent with ADLs. Pt is currently min A with UB ADLs, mod A with LB ADLs, and min A with toileting bathroom level. Pt requires assist for distal BLE ADLs. Pt completed bathroom level toileting this date with min A for clothing mgmt up/down. Pt required increased time to complete. Pt completed hand hygiene with CGA and VCs for problem solving and aligning walker to sink. Pt required min A for hospital gown exchange. Bed mobility Supine to Sit: Unable to assess Sit to Supine: Unable to assess Scooting: Unable to assess Comment: Pt sitting EOB pre/post session Transfers Sit to stand: Minimal assistance Stand to sit: Minimal assistance Transfer Comments: Pt standing from EOB to fww with min A for elevation, balance, and controlled descent with VCs for safe hand placement. No true LOB noted. Plan Times per Week: 6 visits Current Treatment Recommendations: Strengthening, Balance Training, Functional Mobility Training, Endurance Training, Safety Education & Training, Patient/Caregiver Education & Training, Equipment Evaluation, Education, & procurement, Self-Care / ADL, Cognitive/Perceptual Training Plan Comment: POC and goals established in collaboration with the pt. Safety Safety Devices in place: Yes Type of devices: All fall risk precautions in place, Bed alarm in place, Call light within reach, Left in bed, Patient at risk for falls, Gait belt, Nurse notified Restraints Initially in place: No AM-PAC Score AM-PAC Inpatient Daily Activity Raw Score: 16 ADL Inpatient CMS G-Code Modifier: CK Goals Encounter Problems Encounter Problems (Active) Balance Patient will tolerate standing with SUP for 3 minutes to allow for increased participation in functional activities Start: 08/02/22 Expected End: 08/09/22 Dressing Upper Extremities Patient will complete upper body dressing mod I Start: 08/02/22 Expected End: 08/09/22 Dressings Lower Extremities Patient will dress lower body with SUP Start: 08/02/22 Expected End: 08/09/22 Grooming Patient will complete daily grooming tasks sink level with SUP Start: 08/02/22 Expected End: 08/09/22 Mobility Patient will demonstrate functional mobility with SUP Start: 08/02/22 Expected End: 08/09/22 Toileting Patient will complete toileting tasks at standard toilet with supervision. Start: 08/02/22 Expected End: 08/09/22 Transfers Patient will complete functional transfer with rolling walker with supervision in order to prepare for ambulation. Start: 08/02/22 Expected End: 08/09/22 Education Education Given To: Patient Education Provided: OT Role, Plan of Care, ADL Adaptive Strategies, Transfer Training, Fall Prevention Strategies Education Method: Demonstration, Verbal, Teach Back Barriers to Learning: None Education Outcome: Verbalized understanding, Demonstrated understanding, Continued education needed Therapy Time Individual Co-treatment Time In 1316 Time Out 1344 Minutes 28 Timed Code Treatment Minutes: 10 Minutes (1 ADL) POC supervision transferred to rehab service department occupational therapist. Savanna Liz OT Images from the original note were not included. Hospitalist Progress Note 08/02/2022 [phone]: Please page me ([phone]) for patient care issues. [phone]: Please page [facility] Hospitalist for any issues. Subjective: Admit Date: 07/31/2022 PCP: Yenifer Schulz, Room#: B2-254/B2-254 A Interval History: Improved breathing. Feels like something stuck in throat. Breathing better. Adult diet Regular @[id number]@ 24HR INTAKE/OUTPUT: No intake or output data in the 24 hours ending 08/02/22 1313 Past Medical History: Past Medical History: Diagnosis Date Anxiety Arthritis Hypertension LABS: CBC: Recent Labs 07/31/22 1640 08/02/22 0138 WBC 11.5* 12.3* RBC 4.35 3.99 HGB 12.1 11.0* HCT 36.8 34.0* MCV 84.6 85.3 RDW 13.3 13.4 PLT 263 262 BMP: Recent Labs 07/31/22 1640 08/01/22 1148 NA 137 137 K 3.3* 3.7 CL 102 103 CO2 30 29 BUN 15 21* CREATININE 0.92 1.04 GLUCOSE 147* 177* CALCIUM 8.8 8.6 ANIONGAP 4 5 LIVER PROFILE: Recent Labs 08/01/22 1148 AST 27 ALT 14 BILITOT 0.5 ALKPHOS 85 PROT 6.7 PT/INR: No results for input(s): PROTIME, INR in the last 72 hours. CARDIAC ENZYMES: Recent Labs 07/31/22 2321 08/01/22 0505 08/01/22 1148 TROPONINI 0.060* 0.047* 0.031 Procalcitonin: Lab Results Component Value Date PROCAL 0.13 (H) 07/31/2022 COVID-19 PCR: No results for input(s): COVID19 in the last 72 hours. Objective: Vitals: BP (!) 159/84 Pulse 68 Temp 36.1 C (97 F) (Temporal) Resp 16 Ht 1.626 m (5' 4") Wt 83 kg (183 lb) SpO2 93% PF (!) 18 L/min BMI 31.41 kg/m Pulse Ox: SpO2 Av.8 % Min: 93 % Max: 98 % Physical Exam Vitals reviewed. Constitutional: General: She is not in acute distress. Appearance: Normal appearance. HENT: Mouth/Throat: Mouth: Mucous membranes are moist. Comments: No oral thrush noted. Cardiovascular: Rate and Rhythm: Normal rate. Heart sounds: Normal heart sounds. Pulmonary: Effort: Pulmonary effort is normal. Abdominal: General: Bowel sounds are normal. Palpations: Abdomen is soft. Tenderness: There is no abdominal tenderness. Musculoskeletal: Cervical back: Neck supple. Comments: Trace edema Skin: General: Skin is warm. Neurological: General: No focal deficit present. Mental Status: She is alert. Medications: amLODIPine, 5 mg, Oral, Daily aspirin, 81 mg, Oral, Daily budesonide, 0.5 mg, Nebulization, BID cefTRIAXone, 1,000 mg, IntraVENous, q24h enoxaparin, 40 mg, SubCUTAneous, Daily guaiFENesin, 600 mg, Oral, BID influenza, 0.5 mL, IntraMUSCular, Once ipratropium-albuterol, 3 mL, Nebulization, Q4H metoprolol tartrate, 100 mg, Oral, BID predniSONE, 40 mg, Oral, Daily sodium chloride 0.9%, 10 mL, IntraVENous, 2 times per day Assessment Acute purulent bronchitis with possible underlying pneumonia - pneumonia PCR - H influenza - continue with ceftriaxone , total 7 day course Acute respiratory failure with mild distress. - on supplemental oxygen, wean as tolerated. Tachycardia, sinus - improved, resume metoprolol 100 mg BID Leucocytosis - improving Elevated troponin - 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 - EKG- no ST elevation -follow troponin,- plateaued - no chest pain - ECHO - EF 68%, diastolic dysfunction -cardiology consult 6. HTN- resume home amlodipine and metoprolol 7. Mild hypokalemia -improved. 8. Elevated BS -likely steroid/stress - normal Hba1c Medical Decision Making Admitted for acute bronchitis with acute respiratory failure Discussed with ID stewardship Dr. Smith over secure chat about pneumonia PCR positive for H influenza. We will continue with ceftriaxone while in-house, cefdinir on discharge to complete a 7 days course. Had some trouble swallowing this morning. Oral examination without any oral thrush. Will order a swallow eval. Leukocytosis probably from steroids. DC Solu-Medrol, prednisone 40 mg daily for 4 more days. Continue with Pulmicort nebulized. PT OT evaluation. Labs in the morning. - PT/OT - labs in am. -am labs, replace lytes prn -increase activity -DVT prophylaxis: [x] Lovenox [] Heparin [] SCDs [x] Encourage ambulation [] Already on Anticoagulation Anticipated Discharge - Date - 08/03 - Location - PT/OT - Pending the following - clinical improvement Total time spent (which include face to face and non face to face encounters) : 35 minutes Toxic drug monitoring/narrow therapeutic index drug monitoring : # Drug name : # Route administered : # Method of monitoring : Extended Emergency Contact Information Primary Emergency Contact: Joycelyn Rodríguez Relation: Other Victorino Barnes MD Division of Hospitalist Medicine Inpatient Medical Services/[facility]: Epic chat Nutrition rescreen completed. Patient assigned a level 1. Images from the original note were not included. Hospitalist Progress Note 08/01/[id number]: Please page me ([phone]) for patient care issues. [phone]: Please page [facility] night Hospitalist for any issues. Subjective: Admit Date: 07/31/2022 PCP: Yenifer Schulz, Room#: 09/27 Interval History: Seen and examined. Much more improved today. Still has cough with some expectoration. Afebrile. Adult diet Regular @[id number]@ 24HR INTAKE/OUTPUT: Intake/Output Summary (Last 24 hours) at 08/01/2022 1407 Last data filed at 08/01/2022 1230 Gross per 24 hour Intake 1350 ml Output 850 ml Net 500 ml Past Medical History: Past Medical History: Diagnosis Date Anxiety Hypertension LABS: CBC: Recent Labs 07/31/22 1640 WBC 11.5* RBC 4.35 HGB 12.1 HCT 36.8 MCV 84.6 RDW 13.3 PLT 263 BMP: Recent Labs 07/31/22 1640 NA 137 K 3.3* CL 102 CO2 30 BUN 15 CREATININE 0.92 GLUCOSE 147* CALCIUM 8.8 ANIONGAP 4 LIVER PROFILE:No results for input(s): AST, ALT, BILITOT, ALKPHOS, PROT in the last 72 hours. No lab exists for component: LABALBU PT/INR: No results for input(s): PROTIME, INR in the last 72 hours. CARDIAC ENZYMES: Recent Labs 07/31/22 2321 08/01/22 0505 08/01/22 1148 TROPONINI 0.060* 0.047* 0.031 Procalcitonin: Lab Results Component Value Date PROCAL 0.13 (H) 07/31/2022 COVID-19 PCR: No results for input(s): COVID19 in the last 72 hours. Objective: Vitals: BP 136/70 (BP Location: Right arm, Patient Position: Lying) Pulse 64 Temp 37.1 C (98.8 F) Resp 18 Ht 5' 4" (1.626 m) Wt 180 lb (81.6 kg) SpO2 96% PF (!) 18 L/min BMI 30.90 kg/m Pulse Ox: SpO2 Av.5 % Min: 91 % Max: 98 % Physical Exam Constitutional: General: She is not in acute distress. Cardiovascular: Rate and Rhythm: Normal rate. Heart sounds: Normal heart sounds. Pulmonary: Effort: Pulmonary effort is normal. Breath sounds: Wheezing present. Abdominal: General: Bowel sounds are normal. Palpations: Abdomen is soft. Tenderness: There is no abdominal tenderness. Musculoskeletal: Cervical back: Neck supple. Comments: Trace edema Skin: General: Skin is warm. Neurological: General: No focal deficit present. Mental Status: She is alert. Medications: amLODIPine, 5 mg, Oral, Daily aspirin, 81 mg, Oral, Daily cefTRIAXone, 1,000 mg, IntraVENous, q24h doxycycline, 100 mg, Oral, BID enoxaparin, 40 mg, SubCUTAneous, Daily guaiFENesin, 600 mg, Oral, BID influenza, 0.5 mL, IntraMUSCular, Once ipratropium-albuterol, 3 mL, Nebulization, Q4H methylPREDNISolone sod suc (PF), 20 mg, IntraVENous, q12h metoprolol tartrate, 100 mg, Oral, BID sodium chloride 0.9%, 10 mL, IntraVENous, 2 times per day Assessment Acute purulent bronchitis with possible underlying pneumonia - pneumonia PCR - H influenza - continue with ceftriaxone Acute respiratory failure with mild distress. - on supplemental oxygen, wean as tolerated. Tachycardia, sinus - improved, resume metoprolol 100 mg BID Leucocytosis - labs in am. Elevated troponin - 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 - EKG- no ST elevation -follow troponin,- plateaued - no chest pain - ECHO - pending -cardiology consult 6. HTN- resume home amlodipine and metoprolol 7. Mild hypokalemia 8. Elevated BS - normal Hba1c Medical Decision Making Admitted for acute bronchitis with acute respiratory failure - continue with ceftriaxone , pneumonia PCR- H influenza. - DC doxycycline - decrease solumedrol to 20 mg IV BID, improving respiratory status. - cardiology consult pending. - PT/OT - labs in am. -am labs, replace lytes prn -increase activity -DVT prophylaxis: [] Lovenox [] Heparin [] SCDs [x] Encourage ambulation [] Already on Anticoagulation Anticipated Discharge - Date - 08/03 - Location - PT/OT - Pending the following - clinical improvement Total time spent (which include face to face and non face to face encounters) : 35 minutes Toxic drug monitoring/narrow therapeutic index drug monitoring : # Drug name : # Route administered : # Method of monitoring : Extended Emergency Contact Information Primary Emergency Contact: Joycelyn Rodríguez Relation: Other Victorino Barnes MD Division of Hospitalist Medicine Inpatient Medical Services/[facility] PAGER: Epic chat documented in this encounter [facility] 08-07-2022 Note Formatting of this n ote is different from the original. Images from the original note were not included. Care Management Progress Note - Discharge Expected Date/Time: 08/06/2022 Afternoon Disposition: Home or Self Care Transport status: No current request Discharge Milestones Place discharge order Complete med reconciliation Request transport Case mgmt discharge readiness Expected Discharge History Expected Date/Time Set By Reviewed At 08/06/2022 Afternoon Gelacio Blunt MD 08/06/2022 2:14 PM 08/05/2022 Michelle Kingsley RN 08/05/2022 7:50 AM 08/03/2022 Viky Maurer DO 08/01/2022 4:15 PM 08/03/2022 Viky Maurer DO 07/31/2022 5:50 PM Length of Stay (Days): 7 GMLOS: No GMLOS Documented Anticipate possible discharge to home with home care services today. . Diastolic blood pressure remains elevated. Is still requiring oxygen at 2 liters 97% saturation. Will need home oxygen evaluation prior to discharge. Did epic chat cardiology for clarification regarding possible life vest?.. [facility] 08-07-2022 Note Formatting of this n ote is different from the original. Images from the original note were not included. Care Management Progress Note - Discharge Expected Date/Time: 08/06/2022 Afternoon Disposition: Home or Self Care Transport status: No current request Discharge Milestones Place discharge order Complete med reconciliation Request transport Case mgmt discharge readiness Expected Discharge History Expected Date/Time Set By Reviewed At 08/06/2022 Afternoon Gelacio Blunt MD 08/06/2022 2:14 PM 08/05/2022 Michelle Kingsley RN 08/05/2022 7:50 AM 08/03/2022 Viky Maurer DO 08/01/2022 4:15 PM 08/03/2022 Viky Maurer DO 07/31/2022 5:50 PM Length of Stay (Days): 7 GMLOS: No GMLOS Documented Anticipate possible discharge to home with home care services today. . Diastolic blood pressure remains elevated. Is still requiring oxygen at 2 liters 97% saturation. Will need home oxygen evaluation prior to discharge. Did [facility] chat cardiology for clarification regarding possible life vest?.. [facility] WhatsApp 08-07-2022 Plan of care note The patient is Moderately Stable - Low risk of patient condition declining or worsening The patient's goals for the shift include Sleep The clinical goals for the shift include No respiratory distress Over the shift, the patient did not make progress toward the following goals. Barriers to progression include unsteady gait during transferring and hospital setting. Recommendations to address these barriers include assistance with transfers via assist person and assistive devices, patient education, fall precautions, and clustering of care. [facility] 08-06-2022 Note Formatting of this n ote might be different from the original. Educated patient and sister Lynn on Home Care and services available. Patient is agreeable to receiving home care services at this time. With SN, PT, OT. Patient was given choice of home care agencies available in the area and is agreeable to having referrals made with agencies that staff the patients service location. Referrals have been sent via [facility]. Liaison to discuss available agencies to accept case with patient upon receiving responses. [facility] is not in network with patients insurance. [facility] 08-06-2022 Note Formatting of this n ote might be different from the original. Educated patient and sister Lynn on Home Care and services available. Patient is agreeable to receiving home care services at this time. With SN, PT, OT. Patient was given choice of home care agencies available in the area and is agreeable to having referrals made with agencies that staff the patients service location. [facility]errals [facility] been [facility] via [facility] Liaison to discuss available agencies to accept case with patient upon receiving responses. [facility] is not in network with patients insurance. [facility] 08-06-2022 Hospital Discharge instructions Gelacio Blunt MD - 08/06/2022 2:04 PM EDT As tolerated Gelacio Blunt MD - 08/06/2022 2:04 PM EDT Soft and bite sized easy to chew diet The following attachments cannot be sent through Care Everywhere.Shortness of Breath (Dyspnea) (Nicaraguan)Hydralazine, ADULT (Nicaraguan)documented in this encounter [facility] 08-05-2022 Procedure note Images from the original note were not included. SPEECH LANGUAGE PATHOLOGY MODIFIED BARIUM SWALLOW STUDY Patient Name: Yelena Chandra : 1935 Today's Date: 08/05/2022 Visit Info / [facility] ADMISSION DATE: 07/31/2022 ADMITTING DIAGNOSIS: has Arthritis of knee and Dyspnea on their problem list. General Information Ordering Physician: Dr. Victorino Crawford MD Radiologist: Dr. Dusty Avila MD Date of Prior Study: n/a Type of Study: Initial MBS Current Diet Solid Consistency: Dysphagia Soft and Bite-Sized (Dysphagia III) Current Diet Liquid Consistency: Thin Patient complaints: Pt deny deficits at time of evaluation. Intermittent c/o food sticking in throat. On initial ST evaluation, residuals noted in upper esophagus. Referring Diagnosis: Dyspnea Consistencies Administered: Reg solid, Oberon cup, Thin straw, Thin cup, Dysphagia Pureed (Dysphagia I) Procedure Method: Consecutive swallow, Cup, Self feed, Straw Patient Position: Lateral Patient was referred for a to assess the efficiency of her swallow function, rule out aspiration and make recommendations regarding safe dietary consistencies, effective compensatory strategies, and safe eating environment. Past Medical History: Diagnosis Date Anxiety Arthritis Hypertension Past Surgical History: Procedure Laterality Date DILATION AND CURETTAGE OF UTERUS HYSTERECTOMY TONSILLECTOMY AND ADENOIDECTOMY (HISTORICAL) Subjective General Chart Reviewed: Yes Subjective Subjective: Pt was alert. "Will I be afraid?" "Can I run if I don't like it." reassurance provided to pt re: exam. "I can do that". Behavior/Cognition Behavior/Cognition: Alert, Confused Assessment Oral Preparation / Oral Phase: Oral Phase Oral Phase: Pt with mildly disorganized oral transit with tongue pumping to assist with same. Spillage to vallecula with all consistencies, at times over the epiglottic at onset of swallow with transient penetration observed with thin and pudding. Oral base of tongue residuals especially visualized after nectar and pudding. (mild in degree). Pharyngeal Phase: Pharyngeal Phase Pharyngeal: Mild decrease in tongue base retraction or control to reduce spillage. No true vocal cord penetration, no airway compromise. Pt did have strong cough during study without vocal cord contact or observed penetration during flouro. Trace vallecular residuals as a result of tongue base coating and or questionable small pharyngocele that empty after swallow intermittently to vallecuae. (thin and nectar thick liquids). Transient penetration as bolus spills just over epiglottis at onset of swallow. No true vocal cord contact seen. Compensatory Swallowing Strategies Attempted: Small bites/sips, Remain upright for 30-45 minutes after meals, Upright as possible for all oral intake, External pacing (Slow rate for esophageal emptying. Reswallow every few bites to clear oral/pharyneal residuals.) Postural Changes and/or Swallow Maneuvers Trialed: Upright 90 degrees, Upright 30 min after meal Cervical Esophageal Phase: Upper Esophageal Screen Esophageal Screen: Impaired Upper Esophageal Screen Upper Esophageal Screen: Cricopharyngeal hypertrophy and cervical web noted. (no retention observed at UES as a result of either). SEE esophagram, esophageal residual, dysmotility Impression Pt demonstrated mild decreased oral control with lingual pumping. +prespill to vallecula prior to swallow (WFL for age) however over epiglottis into top of laryngeal vestibule at onset of swallow resulting in transient penetration. No true vocal cord contact observed despite pt was coughing during study. Recommend Easy to chew vs. Continue Soft and bite sized with thin liquids. Single bites and drinks, slow rate of intake, smaller more frequent meal to accommodate esophageal emptying. Pt needs education and follow up with deficits, as she is poor historian and decreased memory. Plan & Recommendations Recommendations/Treatment: Recommendations/Treat Requires GAS COMPRESSOR TURBINE OPERATOR Intervention: Yes Recommendations comment: See esophagram, stasis, dysmotility D/C Recommendations: Ongoing speech therapy is recommended during this hospitalization Solid consistency: Easy to Chew Liquid consistency: Thin Liquid administration via: Cup, Straw (single drinks) Medication administration: PO Supervision: Distant Compensatory Swallowing Strategies : Small bites/sips, Upright as possible for all oral intake, Remain upright for 30-45 minutes after meals Therapeutic Interventions: Patient/Family education, Tongue base strengthening Education Response: Needs reinforcement Prognosis: Prognosis Prognosis for safe diet advancement: fair Barriers to reach goals: cognitive deficits Barriers/Prognosis Comment: Assist with recall of swallowing strategies, reflux precautions Individuals consulted Consulted and agree with results and recommendations: Patient The patient was educated regarding the general results and recommendations of this evaluation. Encounter Problems Encounter Problems (Active) Swallowing Patient will tolerate the least restrictive diet consistency to allow for safe consumption of daily meals Start: 08/02/22 Expected End: 08/16/22 Patient will participate in instrumental assessment of swallowing as appropriate Start: 08/02/22 Expected End: 08/16/22 Therapy Time GAS COMPRESSOR TURBINE OPERATOR Individual Minutes Time In: 1015 Time Out: 1045 Minutes: 30 MILTON Hernández [facility] [place] 08-05-2022 Procedure note Images from the original note were not included. SPEECH LANGUAGE PATHOLOGY MODIFIED BARIUM SWALLOW STUDY Patient Name: Yelena Chandra : 1935 Today's Date: 08/05/2022 Visit [facility] ADMISSION DATE: 07/31/2022 ADMITTING DIAGNOSIS: has Arthritis of knee and Dyspnea on their problem list. General Information Ordering Physician: Dr. Victorino Crawford MD Radiologist: Dr. Dusty Avila MD Date of Prior Study: n/a Type of Study: Initial MBS Current Diet Solid Consistency: Dysphagia Soft and Bite-Sized (Dysphagia III) Current Diet Liquid Consistency: Thin Patient complaints: Pt deny deficits at time of evaluation. Intermittent c/o food sticking in throat. On initial ST evaluation, residuals noted in upper esophagus. Referring Diagnosis: Dyspnea Consistencies Administered: Reg solid, [place]on cup, Thin straw, Thin cup, Dysphagia Pureed (Dysphagia I) Procedure Method: Consecutive swallow, Cup, Self feed, Straw Patient Position: Lateral Patient was referred for a to assess the efficiency of her swallow function, rule out aspiration and make recommendations regarding safe dietary consistencies, effective compensatory strategies, and safe eating environment. Past Medical History: Diagnosis Date Anxiety Arthritis Hypertension Past Surgical History: Procedure Laterality Date DILATION AND CURETTAGE OF UTERUS HYSTERECTOMY TONSILLECTOMY AND ADENOIDECTOMY (HISTORICAL) Subjective General Chart Reviewed: Yes Subjective Subjective: Pt was alert. "Will I be afraid?" "Can I run if I don't like it." reassurance provided to pt re: exam. "I can do that". Behavior/Cognition Behavior/Cognition: Alert, Confused Assessment Oral Preparation / Oral Phase: Oral Phase Oral Phase: Pt with mildly disorganized oral transit with tongue pumping to assist with same. Spillage to vallecula with all consistencies, at times over the epiglottic at onset of swallow with transient penetration observed with thin and pudding. Oral base of tongue residuals especially visualized after nectar and pudding. (mild in degree). Pharyngeal Phase: Pharyngeal Phase Pharyngeal: Mild decrease in tongue base retraction or control to reduce spillage. No true vocal cord penetration, no airway compromise. Pt did have strong cough during study without vocal cord contact or observed penetration during flouro. Trace vallecular residuals as a result of tongue base coating and or questionable small pharyngocele that empty after swallow intermittently to vallecuae. (thin and nectar thick liquids). Transient penetration as bolus spills just over epiglottis at onset of swallow. No true vocal cord contact seen. Compensatory Swallowing Strategies Attempted: Small bites/sips, Remain upright for 30-45 minutes after meals, Upright as possible for all oral intake, External pacing (Slow rate for esophageal emptying. Reswallow every few bites to clear oral/pharyneal residuals.) Postural Changes and/or Swallow Maneuvers Trialed: Upright 90 degrees, Upright 30 min after meal Cervical Esophageal Phase: Upper Esophageal Screen Esophageal Screen: Impaired Upper Esophageal Screen Upper Esophageal Screen: Cricopharyngeal hypertrophy and cervical web noted. (no retention observed at UES as a result of either). SEE esophagram, esophageal residual, dysmotility Impression Pt demonstrated mild decreased oral control with lingual pumping. +prespill to vallecula prior to swallow (WFL for age) however over epiglottis into top of laryngeal vestibule at onset of swallow resulting in transient penetration. No true vocal cord contact observed despite pt was coughing during study. Recommend Easy to chew vs. Continue Soft and bite sized with thin liquids. Single bites and drinks, slow rate of intake, smaller more frequent meal to accommodate esophageal emptying. Pt needs education and follow up with deficits, as she is poor historian and decreased memory. Plan & Recommendations Recommendations/Treatment: Recommendations/Treat Requires GAS COMPRESSOR TURBINE OPERATOR Intervention: Yes Recommendations comment: See esophagram, stasis, dysmotility D/C Recommendations: Ongoing speech therapy is recommended during this hospitalization Solid consistency: Easy to Chew Liquid consistency: Thin Liquid administration via: Cup, Straw (single drinks) Medication administration: PO Supervision: Distant Compensatory Swallowing Strategies : Small bites/sips, Upright as possible for all oral intake, Remain upright for 30-45 minutes after meals Therapeutic Interventions: Patient/Family education, Tongue base strengthening Education Response: Needs reinforcement Prognosis: Prognosis Prognosis for safe diet advancement: fair Barriers to reach goals: cognitive deficits Barriers/Prognosis Comment: Assist with recall of swallowing strategies, reflux precautions Individuals consulted Consulted and agree with results and recommendations: Patient The patient was educated regarding the general results and recommendations of this evaluation. Encounter Problems Encounter Problems (Active) Swallowing Patient will tolerate the least restrictive diet consistency to allow for safe consumption of daily meals Start: 08/02/22 Expected End: 08/16/22 Patient will participate in instrumental assessment of swallowing as appropriate Start: 08/02/22 Expected End: 08/16/22 Therapy Time GAS COMPRESSOR TURBINE OPERATOR Individual Minutes Time In: 1015 Time Out: 1045 Minutes: 30 MILTON Hernández documented in this encounter [facility] 08-05-2022 Note Formatting of this n ote is different from the original. Images from the original note were not included. Care Management Progress Note - Discharge Expected Date/Time: 08/05/[address] discharge order Complete med reconciliation Request transport Case mgmt discharge readiness Expected Discharge History Expected Date/Time Set By Reviewed At 08/05/2022 Michelle Kingsley RN 08/05/2022 7:50 AM 08/03/2022 Viky Maurer DO 08/01/2022 4:15 PM 08/03/2022 Viky Maurer DO 07/31/2022 5:50 PM Length of Stay (Days): 5 GMLOS: No GMLOS Documented GI consulted - defer EGD at this time - MBS/esophagogram. Cardiology following, IV antibiotics, oxygen-wean as tolerated, nebulizers. Remains on 4L O2 will need home O2 eval at discharge. [facility] 08-05-2022 Note Formatting of this n ote is different from the original. Images from the original note were not included. Care Management Progress Note - Discharge Expected Date/Time: 08/05/[address] discharge order Complete med reconciliation Request transport Case mgmt discharge readiness Expected Discharge History Expected Date/Time Set By Reviewed At 08/05/2022 Michelle Kingsley RN 08/05/2022 7:50 AM 08/03/2022 Viky Maurer DO 08/01/2022 4:15 PM 08/03/2022 Viky Maurer DO 07/31/2022 5:50 PM Length of Stay (Days): 5 GMLOS: No GMLOS Documented GI consulted - defer EGD at this time - MBS/esophagogram. Cardiology following, IV antibiotics, oxygen-wean as tolerated, nebulizers. Remains on 4L O2 will need home O2 eval at discharge. [facility] 08-03-2022 Consult note Associated Order (s): Inpatient consult to Gastroenterology Images from the original note were not included. GI CONSULTATION Patient: Yelena Chandra : 1935 Primary Care Physician: Yenifer Schulz DO Inpatient consult to Gastroenterology Consult performed by: Jeancarlos Woodruff MD Consult ordered by: Victorino Barnes MD CHIEF COMPLAINT: dysphagia HISTORY OF PRESENT ILLNESS: 87 yo female with PMH as below whom GI is consulted for dysphagia. Admitted and currently being treated for PNA. Noted to have occasional solid food/pill dysphagia. Patient is not a good historian. Mentions on/off symptoms for years. Mentions possible previous EGD in the past (unsure when or the results). Weight stable. No recent imaging. Rare reflux symptoms. On nystatin swish and swallow. PAST MEDICAL HISTORY: Past Medical History: Diagnosis Date Anxiety Arthritis Hypertension PAST SURGICAL HISTORY: Past Surgical History: Procedure Laterality Date DILATION AND CURETTAGE OF UTERUS HYSTERECTOMY TONSILLECTOMY AND ADENOIDECTOMY (HISTORICAL) FAMILY HISTORY: No family history on file. SOCIAL HISTORY: TOBACCO: reports that she has quit smoking. She has never used smokeless tobacco. ETOH: reports no history of alcohol use. DRUGS: reports no history of drug use. Medications: Prior to Admission medications Medication Sig Start Date End Date Taking? Authorizing Provider acetaminophen (Tylenol) 500 MG tablet Take 1,000 mg by mouth Daily as needed. 06/20/21 Yes Historical Provider, metoprolol tartrate (Lopressor) 100 MG tablet Take 1 tablet by mouth 2 times daily. Pt thought this was stopped and started on another BP med - does not know the name 06/20/21 Historical Provider, PARoxetine (Paxil) 10 MG tablet Take 20 mg by mouth every morning. Historical Provider, therapeutic multivitamin-minerals (Theragran-M) tablet Take 1 tablet by mouth daily. Historical Provider, amLODIPine (Norvasc) 5 MG tablet Take 1 tablet by mouth daily. Patient is not sure if she is taking this 06/20/21 08/01/22 Historical Provider, @MEDCMED@ ALLERGIES: No Known Allergies REVIEW OF SYSTEMS: No fever, chills, or sweats. Normal appetite and weight. No NUÑEZ, visual disturbance, eye pain, jaundice, sore throat or mouth ulcers. No skin rash or itching. No CP, SOB, RAY, cough or wheeze. No urinary frequency, urgency, hematuria, or dysuria. No myalgia, arthralgia, or joint swelling. No weakness, numbness, or confusion. GI per HPI. No polyuria, polydipsia, heat or cold intolerance. PHYSICAL EXAM: VS: BP (!) 171/82 Pulse 65 Temp 36.4 C (97.5 F) (Temporal) Resp 18 Ht 1.626 m (5' 4") Wt 83 kg (183 lb) SpO2 97% PF (!) 18 L/min BMI 31.41 kg/m Body mass index is 31.41 kg/m . GENERAL: Pleasant and NAD. HEENT: NCAT, PERRLA, EOMI, Scleral anicteric. CV: RRR, NL S1/S2, no murmurs. LUNGS: CTA b/l but diminished. No W/R/R. Abdomen: + BS, soft, non-tender and non-distended. No rebound or guarding. Neurologic: A&O x 3, CN II-XII grossly intact. No asterixis. Non-focal. Psych: Normal affect and speech. LABS AND IMAGING: Recent blood work and relevant radiologic and endoscopic studies were reviewed and discussed with the patient. Old records have not been requested. CBC: Recent Labs 07/31/22 1640 08/02/22 0138 WBC 11.5* 12.3* HGB 12.1 11.0* HCT 36.8 34.0* PLT 263 262 HEPATIC: Recent Labs 08/01/22 1148 08/03/22 0318 AST 27 34 ALT 14 20 BILITOT 0.5 0.3 ALKPHOS 85 89 LIPASE/AMYLASE: No results for input(s): AMYLASE, LIPASE in the last 72 hours. LACTATE: No lab exists for component: LACTA BNP: Recent Labs 07/31/22 1640 BNP 6,597* INR: No results for input(s): INR in the last 72 hours. ECG 12 lead Result Date: 07/31/2022 SINUS TACHYCARDIA INCOMPLETE RIGHT BUNDLE BRANCH BLOCK BORDERLINE INFERIOR Q WAVES Compared to ECG 06/17/2021 16:55:55 Atrial premature complex(es) no longer present no st elevation or depression, widened qrs with RBBB, t wave inversions in v1-v2, no stemi noted, relativelyunchanged from previous on 06.17.21 Electronically Signed On 07-31-2022 19:15:53 EST by Melva Brenner XR chest 1 view Result Date: 07/31/2022 [facility] Name: YELENA [facility]ANDRA [facility] 1935 [id number] Exam Date/Time: 07/31/2022 17:03 Procedure: XR CHEST 1 VIEW Ordering Provider: BRENNER MATTHEW Reason For Exam: Shortness of breath PORTABLE CHEST X-RAY CLINICAL INDICATION: Shortness of breath A portable frontal view of the chest was obtained. COMPARISON: 05/28/2017 FINDINGS: The cardiac silhouette is within normal limits. Coarsening of the interstitial lung markings is noted, likely chronic. No focal consolidation is seen within the lungs. There is no large pleural effusion or pneumothorax. There are degenerative changes of the thoracic spine. Coarsening of the interstitial lung markings is likely chronic. No focal consolidation is identified. Report Dictated on Electronically Signed By: Tushar Melendez Electronically Signed Date/Time: 07/31/2022 4:57 PM EST Transthoracic echocardiogram (TTE) complete with contrast, bubble, strain, and 3D PRN Result Date: 08/01/2022 Left Ventricle: Left ventricle size is normal. Normal wall thickness. Normal left ventricular systolic function. EF by 2D Simpsons Biplane is 68%. Normal wall motion. Diastolic dysfunction present with increased LAP with normal LVEF. Average E/e' ratio is 19.17. Right Ventricle: Right ventricle size is normal. Normal systolic function. Tricuspid Valve: RVSP 32 mmHg above RA pressure; RVSP therefore may be normal or mildly elevated. No significant valvular abnormalities. IMPRESSION: Dysphagia - intermittent to solids and pills, weight stable, no recent imaging PNA - currently on antibiotics and supplement O2 RECOMMENDATIONS: Would hold off on EGD at this time Monitor swallowing, agree with nystatin swish and swallow Could consider cookie swallow on Friday if still admitted to evaluate dysphagia [facility] 08-03-2022 Consult note Associated Order (s): Inpatient consult to Gastroenterology Images from the original note were not included. GI CONSULTATION Patient: Yelena Chandra : 1935 Primary Care Physician: Yenifer Schulz DO Inpatient consult to Gastroenterology Consult performed by: Jeancarlos Woodruff MD Consult ordered by: Victorino Barnes MD CHIEF COMPLAINT: dysphagia HISTORY OF PRESENT ILLNESS: 87 yo female with PMH as below whom GI is consulted for dysphagia. Admitted and currently being treated for PNA. Noted to have occasional solid food/pill dysphagia. Patient is not a good historian. Mentions on/off symptoms for years. Mentions possible previous EGD in the past (unsure when or the results). Weight stable. No recent imaging. Rare reflux symptoms. On nystatin swish and swallow. PAST MEDICAL HISTORY: Past Medical History: Diagnosis Date Anxiety Arthritis Hypertension PAST SURGICAL HISTORY: Past Surgical History: Procedure Laterality Date DILATION AND CURETTAGE OF UTERUS HYSTERECTOMY TONSILLECTOMY AND ADENOIDECTOMY (HISTORICAL) FAMILY HISTORY: No family history on file. SOCIAL HISTORY: TOBACCO: reports that she has quit smoking. She has never used smokeless tobacco. ETOH: reports no history of alcohol use. DRUGS: reports no history of drug use. Medications: Prior to Admission medications Medication Sig Start Date End Date Taking? Authorizing Provider acetaminophen (Tylenol) 500 MG tablet Take 1,000 mg by mouth Daily as needed. 06/20/21 Yes Historical Provider, metoprolol tartrate (Lopressor) 100 MG tablet Take 1 tablet by mouth 2 times daily. Pt thought this was stopped and started on another BP med - does not know the name 06/20/21 Historical Provider, PARoxetine (Paxil) 10 MG tablet Take 20 mg by mouth every morning. Historical Provider, therapeutic multivitamin-minerals (Theragran-M) tablet Take 1 tablet by mouth daily. Historical Provider, amLODIPine (Norvasc) 5 MG tablet Take 1 tablet by mouth daily. Patient is not sure if she is taking this 06/20/21 08/01/22 Historical Provider, @MEDCMED@ ALLERGIES: No Known Allergies REVIEW OF SYSTEMS: No fever, chills, or sweats. Normal appetite and weight. No NUÑEZ, visual disturbance, eye pain, jaundice, sore throat or mouth ulcers. No skin rash or itching. No CP, SOB, RAY, cough or wheeze. No urinary frequency, urgency, hematuria, or dysuria. No myalgia, arthralgia, or joint swelling. No weakness, numbness, or confusion. GI per HPI. No polyuria, polydipsia, heat or cold intolerance. PHYSICAL EXAM: VS: BP (!) 171/82 Pulse 65 Temp 36.4 C (97.5 F) (Temporal) Resp 18 Ht 1.626 m (5' 4") Wt 83 kg (183 lb) SpO2 97% PF (!) 18 L/min BMI 31.41 kg/m Body mass index is 31.41 kg/m . GENERAL: Pleasant and NAD. HEENT: NCAT, PERRLA, EOMI, Scleral anicteric. CV: RRR, NL S1/S2, no murmurs. LUNGS: CTA b/l but diminished. No W/R/R. Abdomen: + BS, soft, non-tender and non-distended. No rebound or guarding. Neurologic: A&O x 3, CN II-XII grossly intact. No asterixis. Non-focal. Psych: Normal affect and speech. LABS AND IMAGING: Recent blood work and relevant radiologic and endoscopic studies were reviewed and discussed with the patient. Old records have not been requested. CBC: Recent Labs 07/31/22 1640 08/02/22 0138 WBC 11.5* 12.3* HGB 12.1 11.0* HCT 36.8 34.0* PLT 263 262 HEPATIC: Recent Labs 08/01/22 1148 08/03/22 0318 AST 27 34 ALT 14 20 BILITOT 0.5 0.3 ALKPHOS 85 89 LIPASE/AMYLASE: No results for input(s): AMYLASE, LIPASE in the last 72 hours. LACTATE: No lab exists for component: LACTA BNP: Recent Labs 07/31/22 1640 BNP 6,597* INR: No results for input(s): INR in the last 72 hours. ECG 12 lead Result Date: 07/31/2022 SINUS TACHYCARDIA INCOMPLETE RIGHT BUNDLE BRANCH BLOCK BORDERLINE INFERIOR Q WAVES Compared to ECG 06/17/2021 16:55:55 Atrial premature complex(es) no longer present no st elevation or depression, widened qrs with RBBB, t wave inversions in v1-v2, no stemi noted, relativelyunchanged from previous on 06.17.21 Electronically Signed On 07-31-2022 19:15:53 EST by Melva Brenner XR chest 1 view Result Date: 07/31/2022 Patient Name: YELENA CHANDRA : 1935 Exam Date/Time: 07/31/2022 17:03 Procedure: XR CHEST 1 VIEW Ordering Provider: BRENNER MATTHEW Reason For Exam: Shortness of breath PORTABLE CHEST X-RAY CLINICAL INDICATION: Shortness of breath A portable frontal view of the chest was obtained. COMPARISON: 05/28/2017 FINDINGS: The cardiac silhouette is within normal limits. Coarsening of the interstitial lung markings is noted, likely chronic. No focal consolidation is seen within the lungs. There is no large pleural effusion or pneumothorax. There are degenerative changes of the thoracic spine. Coarsening of the interstitial lung markings is likely chronic. No focal consolidation is identified. Report Dictated on Electronically Signed By: Tushar Melendez Electronically Signed Date/Time: 07/31/2022 4:57 PM EST Transthoracic echocardiogram (TTE) complete with contrast, bubble, strain, and 3D PRN Result Date: 08/01/2022 Left Ventricle: Left ventricle size is normal. Normal wall thickness. Normal left ventricular systolic function. EF by 2D Simpsons Biplane is 68%. Normal wall motion. Diastolic dysfunction present with increased LAP with normal LVEF. Average E/e' ratio is 19.17. Right Ventricle: Right ventricle size is normal. Normal systolic function. Tricuspid Valve: RVSP 32 mmHg above RA pressure; RVSP therefore may be normal or mildly elevated. No significant valvular abnormalities. IMPRESSION: Dysphagia - intermittent to solids and pills, weight stable, no recent imaging PNA - currently on antibiotics and supplement O2 RECOMMENDATIONS: Would hold off on EGD at this time Monitor swallowing, agree with nystatin swish and swallow Could consider cookie swallow on Friday if still admitted to evaluate dysphagia Cardiology Progress Note Patient Name: Yelena Chandra Patient Age: 87 y.o. Date: 08/02/2022 SUBJECTIVE: Elevated troponin. 0.06>>> 0.03 VITALS BP (!) 158/88 (BP Location: Left arm, Patient Position: Lying) Pulse 66 Temp 35.8 C (96.5 F) (Temporal) Resp 18 Ht 5' 4" (1.626 m) Wt 183 lb (83 kg) SpO2 98% PF (!) 18 L/min BMI 31.41 kg/m Susie is a 87 y.o. female with past medical history of anxiety, HTN, OA presented with above complaints. Has been having cough with purulent sputum for the last 2-3 days. Woke up today morning with discharge from both eyes with redness of eyes. Was tired. Had some upper respiratory illness going around in the house before she caught it. No fever or chills. No chest pain. SOB present. No leg swelling Intake/Output Summary (Last 24 hours) at 08/02/2022 1142 Last data filed at 08/01/2022 1230 Gross per 24 hour Intake -- Output 300 ml Net -300 ml OBJECTIVE: 10 systems reviewed as seen below Neck: Neck JVP 0, No carotid bruits, thyroid not enlarged Cardiovascular system: NSR, Short systolic murmur, no gallop Chest: normal breath sounds Abdomen: Abdomen soft/non-tender, no organomegaly, bowel sounds present Extremities: No edema, no varicosity Endocrine : Hypothyroidism No Diabites No GI system : GIB No Renal : CKD No MICROELECTRONICS ENGINEER : CVA/TIA No Musculoskeletal system : DJD No LAB Lab Results Component Value Date NA 137 08/01/2022 K 3.7 08/01/2022 CL 103 08/01/2022 CO2 29 08/01/2022 BUN 21 (H) 08/01/2022 CREATININE 1.04 08/01/2022 GLUCOSE 177 (H) 08/01/2022 CALCIUM 8.6 08/01/2022 Lab Results Component Value Date WBC 12.3 (H) 08/02/2022 HGB 11.0 (L) 08/02/2022 HCT 34.0 (L) 08/02/2022 MCV 85.3 08/02/2022 PLT 262 08/02/2022 Lab Results Component Value Date TROPONINI 0.031 08/01/2022 Lab Results Component Value Date TSH 0.882 06/18/2021 No components found for: LABA1C No components found for: EAG Recent Labs 08/01/22 1148 ALKPHOS 85 ALT 14 AST 27 BILITOT 0.5 Lab Results Component Value Date BNP 6,597 (H) 07/31/2022 CARDIAC TESTING EKG: Encounter Date: 07/31/22 ECG 12 lead Result Value Heart Rate 107 QRSD Interval 118 QT Interval 372 QTC Interval 497 P [place] -15 QRS [place] 60 T Wave [place] -7 DE Interval 164 Impression SINUS TACHYCARDIA INCOMPLETE RIGHT BUNDLE BRANCH BLOCK BORDERLINE INFERIOR Q WAVES Compared to ECG 06/17/2021 16:55:55 Atrial premature complex(es) no longer present no st elevation or depression, widened qrs with RBBB, t wave inversions in v1-v2, no stemi noted, relativelyunchanged from previous on 06.17.21 Electronically Signed On 07-31-2022 19:15:53 EST by Melva Brenner Echo: Transthoracic echocardiogram (TTE) complete with contrast, bubble, strain, and 3D PRN Result Date: 08/01/2022 Left Ventricle: Left ventricle size is normal. Normal wall thickness. Normal left ventricular systolic function. EF by 2D Simpsons Biplane is 68%. Normal wall motion. Diastolic dysfunction present with increased LAP with normal LVEF. Average E/e' ratio is 19.17. Right Ventricle: Right ventricle size is normal. Normal systolic function. Tricuspid Valve: RVSP 32 mmHg above RA pressure; RVSP therefore may be normal or mildly elevated. No significant valvular abnormalities. Troponin: Stress Test: Cardiac Cath: IMPRESSION : STRESS INDUCED TROPONIN ELEVATION. DUE TO BRONCHITIS & POSSIBLE HYPOXIA, TYPE 2 NSTMI. PLAN : ECHO.>>EF=68 %.. NO WMA. FOLLOW ENZYME,/ CRF. SIERRA OJEDA M.D., FACC 08/02/2022 documented in this encounter [facility] 08-02-2022 Note Formatting of this n ote might be different from the original. Mixer Machine Feeder following case for Discharge Needs. [facility] 08-02-2022 Note Formatting of this n ote might be different from the original. Mixer Machine Feeder following case for Discharge Needs. [facility] 08-02-2022 Note Formatting of this n ote might be different from the original. Care Managment Initial Assessment Date: 08/02/2022 Patient Name: Yelena Chandra : 1935 Patient Information Source of Information: Patient Cognition/Language: WFL - Within Functional Limits Permission given to speak with patient entry level marketing representative/caregiver as indicated: Yes Confirmation of Payer with patient/family: Yes Payer Name: united healthcare medicare : No Confirmation of Primary Care Physician: Confirmed PCP Name: Yaritza Seen in last 2 years?: Yes Primary Caregiver: Self If assistance needed, confirmed caregiver ready, willing and able to care for patient at discharge: Yes Confirmed with: pt Living Arrangements Current Residence: House Number of Floors 2 Number of Entry Steps: 4 Bed/Bath Levels: Both first floor Facility: Facility Name: Plan to Return: home Lives with: Extended family members Support Systems: Family members, Friends/neighbors Activities of Daily Living Ambulation: Independent (with cane or walker) Bathing/Dressing: Independent Elimination/Continence/Toileting: Independent Feeding: Independent Who Assists with Activities of Daily Living: self Instrumental Activities of Daily Living Prescription Coverage: Yes Pharmacy Used: [facility] [address] Medication Management: Prescription pick-up Who assists with medication securing and setup?: self Transportation/Shopping: Independent Transportation Mode: Car Needs Assistance with Transportation at Discharge: Comments (sister) Meal Preparation: Assistance Provider Laundry/Cleaning: Assistance Provider Finances/Bill Paying: Independent Communication: Independent Types of Care Services/Equipment Utilized Care Services: (na) Dialysis Type: NA Durable Medical Equipment: Walker, Cane Patient's Goal/Discharge Plan Patient expects to be discharged to: home Discharge Planning Actions: Continue to follow Patient's Choice Rights and [employer] and Collaborative Relationships Disclosed as Indicated for Post-Acute Care: Interdisciplinary Team Engagement: PT/OT Social Work Referral for: Additional Information: Spoke with pt via phone,introduced self & role.Pt independent, drives, manages medications, ADL's. Home tasks are completed by pt sister. Pt plans to return home with sister & is agreeable to home care. engineering production liaison notified. She states someone is available 16/12. Reason for admission:Acute purulent bronchitis with possible underlying pneumonia - pneumonia PCR - H influenza, IV antibiotics,supplemental oxygen, wean as tolerated, Elevated troponin-cardiology consult, ECHO, EKG, nebulizers. Michelle Kingsley RN [facility] 08-02-2022 Note Formatting of this n ote might be different from the original. Care Managment Initial Assessment Date: 08/02/2022 Patient Name: Yelena Chandra : 1935 Patient Information Source of Information: Patient Cognition/Language: WFL - Within Functional Limits Permission given to speak with patient entry level marketing representative/caregiver as indicated: Yes Confirmation of Payer with patient/family: Yes Payer Name: united healthcare medicare [place]: No Confirmation of Primary Care Physician: Confirmed PCP Name: Yaritza Seen in last 2 years?: Yes Primary Caregiver: Self If assistance needed, confirmed caregiver ready, willing and able to care for patient at discharge: Yes Confirmed with: pt Living Arrangements Current Residence: House Number of Floors 2 Number of Entry Steps: 4 Bed/Bath Levels: Both first floor Facility: Facility Name: Plan to Return: home Lives with: Extended family members Support Systems: Family members, Friends/neighbors Activities of Daily Living Ambulation: Independent (with cane or walker) Bathing/Dressing: Independent Elimination/Continence/Toileting: Independent Feeding: Independent Who Assists with Activities of Daily Living: self Instrumental Activities of Daily Living Prescription Coverage: Yes [facility]acy [facility] [address] Medication Management: Prescription pick-up Who assists with medication securing and setup?: self Transportation/Shopping: Independent Transportation Mode: Car Needs Assistance with Transportation at Discharge: Comments (sister) Meal Preparation: Assistance Provider Laundry/Cleaning: Assistance Provider Finances/Bill Paying: Independent Communication: Independent Types of Care Services/Equipment Utilized Care Services: (na) Dialysis Type: NA Durable Medical Equipment: Walker, Cane Patient's Goal/Discharge Plan Patient expects to be discharged to: home Discharge Planning Actions: Continue to follow Patient's Choice Rights and [employer] and Collaborative Relationships Disclosed as Indicated for Post-Acute Care: Interdisciplinary Team Engagement: PT/OT Social Work Referral for: Additional Information: Spoke with pt via phone,introduced self & role.Pt independent, drives, manages medications, ADL's. Home tasks are completed by pt . Pt plans to return home with sister & is agreeable to home care. engineering production liaison notified. She states someone is available 16/12. Reason for admission:Acute purulent bronchitis with possible underlying pneumonia - pneumonia PCR - H influenza, IV antibiotics,supplemental oxygen, wean as tolerated, Elevated troponin-cardiology consult, ECHO, EKG, nebulizers. Michelle Kingsley RN [facility] 08-02-2022 Consult note Formatting of th is note is different from the original. Cardiology Progress Note Patient Name: Yelena Chandra Patient Age: 87 y.o. Date: 08/02/2022 SUBJECTIVE: Elevated troponin. 0.06>>> 0.03 VITALS BP (!) 158/88 (BP Location: Left arm, Patient Position: Lying) Pulse 66 Temp 35.8 C (96.5 F) (Temporal) Resp 18 Ht 5' 4" (1.626 m) Wt 183 lb (83 kg) SpO2 98% PF (!) 18 L/min BMI 31.41 kg/m Susie is a 87 y.o. female with past medical history of anxiety, HTN, OA presented with above complaints. Has been having cough with purulent sputum for the last 2-3 days. Woke up today morning with discharge from both eyes with redness of eyes. Was tired. Had some upper respiratory illness going around in the house before she caught it. No fever or chills. No chest pain. SOB present. No leg swelling Intake/Output Summary (Last 24 hours) at 08/02/2022 1142 Last data filed at 08/01/2022 1230 Gross per 24 hour Intake -- Output 300 ml Net -300 ml OBJECTIVE: 10 systems reviewed as seen below Neck: Neck JVP 0, No carotid bruits, thyroid not enlarged Cardiovascular system: NSR, Short systolic murmur, no gallop Chest: normal breath sounds Abdomen: Abdomen soft/non-tender, no organomegaly, bowel sounds present Extremities: No edema, no varicosity Endocrine : Hypothyroidism No Diabites No GI system : GIB No Renal : CKD No MICROELECTRONICS ENGINEER : CVA/TIA No Musculoskeletal system : DJD No LAB Lab Results Component Value Date NA 137 08/01/2022 K 3.7 08/01/2022 CL 103 08/01/2022 CO2 29 08/01/2022 BUN 21 (H) 08/01/2022 CREATININE 1.04 08/01/2022 GLUCOSE 177 (H) 08/01/2022 CALCIUM 8.6 08/01/2022 Lab Results Component Value Date WBC 12.3 (H) 08/02/2022 HGB 11.0 (L) 08/02/2022 HCT 34.0 (L) 08/02/2022 MCV 85.3 08/02/2022 PLT 262 08/02/2022 Lab Results Component Value Date TROPONINI 0.031 08/01/2022 Lab Results Component Value Date TSH 0.882 06/18/2021 No components found for: LABA1C No components found for: EAG Recent Labs 08/01/22 1148 ALKPHOS 85 ALT 14 AST 27 BILITOT 0.5 Lab Results Component Value Date BNP 6,597 (H) 07/31/2022 CARDIAC TESTING EKG: Encounter Date: 07/31/22 ECG 12 lead Result Value Heart Rate 107 QRSD Interval 118 QT Interval 372 QTC Interval 497 P [place] -15 QRS [place] 60 T Wave [place] -7 DE Interval 164 Impression SINUS TACHYCARDIA INCOMPLETE RIGHT BUNDLE BRANCH BLOCK BORDERLINE INFERIOR Q WAVES Compared to ECG 06/17/2021 16:55:55 Atrial premature complex(es) no longer present no st elevation or depression, widened qrs with RBBB, t wave inversions in v1-v2, no stemi noted, relativelyunchanged from previous on 06.17.21 Electronically Signed On 07-31-2022 19:15:53 EST by Melva Brenner Echo: Transthoracic echocardiogram (TTE) complete with contrast, bubble, strain, and 3D PRN Result Date: 08/01/2022 Left Ventricle: Left ventricle size is normal. Normal wall thickness. Normal left ventricular systolic function. EF by 2D Simpsons Biplane is 68%. Normal wall motion. Diastolic dysfunction present with increased LAP with normal LVEF. Average E/e' ratio is 19.17. Right Ventricle: Right ventricle size is normal. Normal systolic function. Tricuspid Valve: RVSP 32 mmHg above RA pressure; RVSP therefore may be normal or mildly elevated. No significant valvular abnormalities. Troponin: Stress Test: Cardiac Cath: IMPRESSION : STRESS INDUCED TROPONIN ELEVATION. DUE TO BRONCHITIS & POSSIBLE HYPOXIA, TYPE 2 NSTMI. PLAN : ECHO.>>EF=68 %.. NO WMA. FOLLOW ENZYME,/ CRF. SIERRA OJEDA M.D., FACC 08/02/2022 [facility] 07-31-2022 History and physical note Images from the original note were not included. Attending History and Physical Admit Date: 07/31/2022 PCP: Yenifer Schulz DO CHIEF COMPLAINT: cough , SOB Reason for Admission: acute bronchitis History Obtained From: patient HISTORY OF PRESENT ILLNESS: Yelena is a 87 y.o. female with past medical history of anxiety, HTN, OA presented with above complaints. Has been having cough with purulent sputum for the last 2-3 days. Woke up today morning with discharge from both eyes with redness of eyes. Was tired. Had some upper respiratory illness going around in the house before she caught it. No fever or chills. No chest pain. SOB present. No leg swelling. Denies any nausea, vomiting, abdominal pain, urinary symptoms, leg swelling or focal weakness. Past Medical History: Past Medical History: Diagnosis Date Anxiety Hypertension Past Surgical History: Past Surgical History: Procedure Laterality Date DILATION AND CURETTAGE OF UTERUS HYSTERECTOMY TONSILLECTOMY AND ADENOIDECTOMY (HISTORICAL) Social History: Social History Socioeconomic History Marital status: Spouse name: Not on file Number of children: Not on file Years of education: Not on file Highest education level: Not on file Occupational History Not on file Tobacco Use Smoking status: Former Smokeless tobacco: Never Substance and Sexual Activity Alcohol use: No Drug use: No Sexual activity: Not on file Other Topics Concern Not on file Social History Narrative Not on file Social Determinants of Health Financial Resource Strain: Not on file Food Insecurity: Not on file Transportation Needs: Not on file Physical Activity: Not on file Stress: Not on file Social Connections: Not on file Intimate Partner Violence: Not on file Housing Stability: Not on file Family History: No family history on file. Medications Prior to Admission: No current facility-administered medications on file prior to encounter. No current outpatient medications on file prior to encounter. Metoprolol. paxil Allergies: No Known Allergies REVIEW OF SYSTEMS: 12 point ROS done, negative other than HPI Vitals: BP (!) 167/96 (BP Location: Left arm, Patient Position: Lying) Pulse (!) 114 Temp 36.9 C (98.4 F) (Oral) Resp 18 Ht 5' 4" (1.626 m) Wt 180 lb (81.6 kg) SpO2 98% BMI 30.90 kg/m BMI Classification: Pulse Ox: SpO2 Av.5 % Min: 95 % Max: 98 % Supplemental O2: PHYSICAL EXAM: Physical Exam Vitals reviewed. Constitutional: General: She is in acute distress. Appearance: She is ill-appearing. HENT: Head: Normocephalic. Mouth/Throat: Mouth: Mucous membranes are moist. Eyes: General: Right eye: Discharge present. Left eye: Discharge present. Extraocular Movements: Extraocular movements intact. Pupils: Pupils are equal, round, and reactive to light. Cardiovascular: Rate and Rhythm: Regular rhythm. Tachycardia present. Heart sounds: Normal heart sounds. Pulmonary: Breath sounds: Wheezing present. Comments: Increased effort with some use of accessory muscles. Able to speak in sentences, Abdominal: General: Abdomen is flat. Bowel sounds are normal. Palpations: Abdomen is soft. Musculoskeletal: Cervical back: Neck supple. Comments: Trace edema b/l. Skin: General: Skin is warm. Neurological: General: No focal deficit present. Mental Status: She is alert and oriented to person, place, and time. Psychiatric: Mood and Affect: Mood normal. DATA: CBC: Recent Labs 07/31/22 1640 WBC 11.5* RBC 4.35 HGB 12.1 HCT 36.8 MCV 84.6 RDW 13.3 PLT 263 BMP: Recent Labs 07/31/22 1640 NA 137 K 3.3* CL 102 CO2 30 BUN 15 CREATININE 0.92 GLUCOSE 147* CALCIUM 8.8 ANIONGAP 4 LIVER PROFILE:No results for input(s): AST, ALT, BILITOT, ALKPHOS, PROT in the last 72 hours. No lab exists for component: LABALBU PT/INR: No results for input(s): PROTIME, INR in the last 72 hours. CARDIAC ENZYMES: Recent Labs 07/31/22 1640 TROPONINI 0.068* Procalcitonin: No results found for: PROCAL Urine Culture: No results found for this or any previous visit. COVID-19 PCR: No results for input(s): COVID19 in the last 72 hours. I reviewed: [x] laboratory results [x] radiographic results At the time of today's encounter. Pt was advised of the results. IMPRESSION: Acute purulent bronchitis with possible underlying pneumonia Acute respiratory failure with mild distress. Tachycardia, sinus Leucocytosis Elevated troponin - 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 - EKG- no ST elevation -follow troponin, tele - ECHO -cardiology consult 6. HTN 7. Mild hypokalemia 8. Elevated BS Medical Decision Makin years female with past medical history of hypertension on metoprolol anxiety on paroxetine, living at home presented with respiratory symptoms with increased cough sputum production for the last 2 days. She has been bringing up yellow sputum and also has yellow discharge from both the eyes. In the ER she is in mild mildly short of breath, some distress and use of accessory muscles, able to speak in sentences, tachycardic. Labs reviewed and is significant for mild leukocytosis, hypokalemia, increased troponin. She does not have any chest pain . No fever or chills. No leg leg swelling. CXR with increased interstitial markings. -The symptoms are likely secondary to lower respiratory tract infection infection, acute bronchitis, with possible underlying pneumonia. We will send sputum for PCR sputum, sputum culture, urine antigen studies. We will start her on bronchodilators, Solu-Medrol 40 mg IV twice daily, ceftriaxone 1 g IV daily, Doxy doxycycline 100 mg oral twice daily. We will monitor her on telemetry. We will cycle troponin. We will get echocardiogram. Will place cardiology on consult. She takes metoprolol at home, did not take it at this morning, will resume. We will also will likely help with the tachycardia. -PT/OT eval/increase activity -am labs, replace lytes prn -vitals per routine -home meds as ordered -DVT prophylaxis: [x] Lovenox [] Heparin [] SCDs [x] Encourage ambulation [] Already on Anticoagulation Anticipated Discharge - Date - 08/02/2022 - Location - PT/OT - Pending the following - clinical improvement. Total time spent (which include face to face and non face to face encounters) : 70 minutes Toxic drug monitoring/narrow therapeutic index drug monitoring : # Drug name : # Route administered : # Method of monitoring : Extended Emergency Contact Information Primary Emergency Contact: Joycelyn Rodríguez Relation: Other Secondary Emergency Contact: Renee Avery Mobile Relation: Other Code status: Full Code -see below for additional orders, further recommendations to follow Orders Placed This Encounter Procedures SARS-CoV-2, Flu A/B, and RSV Combo Respiratory culture and Stain COVID and Respiratory PCR Panel Legionella and Streptococcus Urine Antigen Pneumonia PCR Panel XR chest 1 view Basic metabolic panel CBC Troponin I NT PRO BNP Troponin I Adult diet Regular Telemetry monitoring for Arrhythmia Management Vital Signs per unit routine Check pulse oximetry Notify patient's primary care provider of admission Activity No Restrictions Full code Inpatient consult to COPD Navigator Inpatient consult to Cardiology Initiate Oxygen Therapy Protocol ECG 12 lead Transthoracic echocardiogram (TTE) complete with contrast, bubble, strain, and 3D PRN Admit to inpatient Please forward a copy of this H&P to the patient's PCP. Thank you. [facility] 07-31-2022 History and physical note Images from the original note were not included. Attending History and Physical Admit Date: 07/31/2022 PCP: Yenifer Schulz DO CHIEF COMPLAINT: cough , SOB Reason for Admission: acute bronchitis History Obtained From: patient HISTORY OF PRESENT ILLNESS: Yelena is a 87 y.o. female with past medical history of anxiety, HTN, OA presented with above complaints. Has been having cough with purulent sputum for the last 2-3 days. Woke up today morning with discharge from both eyes with redness of eyes. Was tired. Had some upper respiratory illness going around in the house before she caught it. No fever or chills. No chest pain. SOB present. No leg swelling. Denies any nausea, vomiting, abdominal pain, urinary symptoms, leg swelling or focal weakness. Past Medical History: Past Medical History: Diagnosis Date Anxiety Hypertension Past Surgical History: Past Surgical History: Procedure Laterality Date DILATION AND CURETTAGE OF UTERUS HYSTERECTOMY TONSILLECTOMY AND ADENOIDECTOMY (HISTORICAL) Social History: Social History Socioeconomic History Marital status: Spouse name: Not on file Number of children: Not on file Years of education: Not on file Highest education level: Not on file Occupational History Not on file Tobacco Use Smoking status: Former Smokeless tobacco: Never Substance and Sexual Activity Alcohol use: No Drug use: No Sexual activity: Not on file Other Topics Concern Not on file Social History Narrative Not on file Social Determinants of Health Financial Resource Strain: Not on file Food Insecurity: Not on file Transportation Needs: Not on file Physical Activity: Not on file Stress: Not on file Social Connections: Not on file Intimate Partner Violence: Not on file Housing Stability: Not on file Family History: No family history on file. Medications Prior to Admission: No current facility-administered medications on file prior to encounter. No current outpatient medications on file prior to encounter. Metoprolol. paxil Allergies: No Known Allergies REVIEW OF SYSTEMS: 12 point ROS done, negative other than HPI Vitals: BP (!) 167/96 (BP Location: Left arm, Patient Position: Lying) Pulse (!) 114 Temp 36.9 C (98.4 F) (Oral) Resp 18 Ht 5' 4" (1.626 m) Wt 180 lb (81.6 kg) SpO2 98% BMI 30.90 kg/m BMI Classification: Pulse Ox: SpO2 Av.5 % Min: 95 % Max: 98 % Supplemental O2: PHYSICAL EXAM: Physical Exam Vitals reviewed. Constitutional: General: She is in acute distress. Appearance: She is ill-appearing. HENT: Head: Normocephalic. Mouth/Throat: Mouth: Mucous membranes are moist. Eyes: General: Right eye: Discharge present. Left eye: Discharge present. Extraocular Movements: Extraocular movements intact. Pupils: Pupils are equal, round, and reactive to light. Cardiovascular: Rate and Rhythm: Regular rhythm. Tachycardia present. Heart sounds: Normal heart sounds. Pulmonary: Breath sounds: Wheezing present. Comments: Increased effort with some use of accessory muscles. Able to speak in sentences, Abdominal: General: Abdomen is flat. Bowel sounds are normal. Palpations: Abdomen is soft. Musculoskeletal: Cervical back: Neck supple. Comments: Trace edema b/l. Skin: General: Skin is warm. Neurological: General: No focal deficit present. Mental Status: She is alert and oriented to person, place, and time. Psychiatric: Mood and Affect: Mood normal. DATA: CBC: Recent Labs 07/31/22 1640 WBC 11.5* RBC 4.35 HGB 12.1 HCT 36.8 MCV 84.6 RDW 13.3 PLT 263 BMP: Recent Labs 07/31/22 1640 NA 137 K 3.3* CL 102 CO2 30 BUN 15 CREATININE 0.92 GLUCOSE 147* CALCIUM 8.8 ANIONGAP 4 LIVER PROFILE:No results for input(s): AST, ALT, BILITOT, ALKPHOS, PROT in the last 72 hours. No lab exists for component: LABALBU PT/INR: No results for input(s): PROTIME, INR in the last 72 hours. CARDIAC ENZYMES: Recent Labs 07/31/22 1640 TROPONINI 0.068* Procalcitonin: No results found for: PROCAL Urine Culture: No results found for this or any previous visit. COVID-19 PCR: No results for input(s): COVID19 in the last 72 hours. I reviewed: [x] laboratory results [x] radiographic results At the time of today's encounter. Pt was advised of the results. IMPRESSION: Acute purulent bronchitis with possible underlying pneumonia Acute respiratory failure with mild distress. Tachycardia, sinus Leucocytosis Elevated troponin - 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 - EKG- no ST elevation -follow troponin, tele - ECHO -cardiology consult 6. HTN 7. Mild hypokalemia 8. Elevated BS Medical Decision Makin years female with past medical history of hypertension on metoprolol anxiety on paroxetine, living at home presented with respiratory symptoms with increased cough sputum production for the last 2 days. She has been bringing up yellow sputum and also has yellow discharge from both the eyes. In the ER she is in mild mildly short of breath, some distress and use of accessory muscles, able to speak in sentences, tachycardic. Labs reviewed and is significant for mild leukocytosis, hypokalemia, increased troponin. She does not have any chest pain . No fever or chills. No leg leg swelling. CXR with increased interstitial markings. -The symptoms are likely secondary to lower respiratory tract infection infection, acute bronchitis, with possible underlying pneumonia. We will send sputum for PCR sputum, sputum culture, urine antigen studies. We will start her on bronchodilators, Solu-Medrol 40 mg IV twice daily, ceftriaxone 1 g IV daily, Doxy doxycycline 100 mg oral twice daily. We will monitor her on telemetry. We will cycle troponin. We will get echocardiogram. Will place cardiology on consult. She takes metoprolol at home, did not take it at this morning, will resume. We will also will likely help with the tachycardia. -PT/OT eval/increase activity -am labs, replace lytes prn -vitals per routine -home meds as ordered -DVT prophylaxis: [x] Lovenox [] Heparin [] SCDs [x] Encourage ambulation [] Already on Anticoagulation Anticipated Discharge - Date - 08/02/2022 - Location - PT/OT - Pending the following - clinical improvement. Total time spent (which include face to face and non face to face encounters) : 70 minutes Toxic drug monitoring/narrow therapeutic index drug monitoring : # Drug name : # Route administered : # Method of monitoring : Extended Emergency Contact Information Primary Emergency Contact: Joycelyn Rodríguez Relation: Other Secondary Emergency Contact: Renee Avery Mobile Relation: Other Code status: Full Code -see below for additional orders, further recommendations to follow Orders Placed This Encounter Procedures SARS-CoV-2, Flu A/B, and RSV Combo Respiratory culture and Stain COVID and Respiratory PCR Panel Legionella and Streptococcus Urine Antigen Pneumonia PCR Panel XR chest 1 view Basic metabolic panel CBC Troponin I NT PRO BNP Troponin I Adult diet Regular Telemetry monitoring for Arrhythmia Management Vital Signs per unit routine Check pulse oximetry Notify patient's primary care provider of admission Activity No Restrictions Full code Inpatient consult to COPD Navigator Inpatient consult to Cardiology Initiate Oxygen Therapy Protocol ECG 12 lead Transthoracic echocardiogram (TTE) complete with contrast, bubble, strain, and 3D PRN Admit to inpatient Please forward a copy of this H&P to the patient's PCP. Thank you. documented in this encounter [facility] [facility] 07-31-2022 Emergency department Note Guided sister back to see pt RADHA Holman 07/31/22 1619 [facility] 07-31-2022 Emergency department Note Guided sister back to see pt RADHA Holman 07/31/22 1619 Introduced myself as pt liaison explained role and provided support to sister Lynn in [facility]. Pt arrived via EMS. RADHA Holman 07/31/22 1553 Emergency Department Encounter [facility] ED Patient: Yelena Chandra : 1935 Date of Evaluation: 07/31/2022 ED Supervising Physician: Melva Brenner, DO I independently examined and evaluated Yelena Chandra. This will serve as my Supervisory note and shared attestation. I did perform a substantive portion of the visit including all aspects of the Medical Decision Making. I wore appropriate PPE for the entirety of this encounter. In brief, Yeelna Chandra is a 87 y.o. female that presents to the emergency department generalized weakness. Focused exam: Physical exam was relatively unremarkable. Patient speaking in full sentences, abdominal exam was unremarkable no lower extremity swelling. Brief ED course/MDM: This time presented to the emergency department for some weakness and shortness of breath. Differential does include COPD, CHF, bronchitis. Patient did have lab work consisting of a PE which was relatively unremarkable, troponin was elevated at 0.068 however there are no comparisons. Patient did have a CBC which was negative COVID was negative. Did have a chest x-ray independently interpreted showing some emphysematous changes no consolidations noted. Did have an EKG which was independently interpreted no ST elevations or depressions does show a sinus tachycardia normal intervals. Did review the patient's chart specifically an H&P from 06/17/2021 and the patient was admitted for generalized weakness. Very similar to the patient's current presentation. MDM elements: The patient presented with chief complaint of shortness of breath. The differential diagnosis associated with this patient's presentation includes anemia, COPD, CHF. Our workup consisted of ordering/reviewing: BC, CMP, troponin, EKG, chest x-ray. Patient is in agreement with this plan. All diagnostic, treatment, and disposition decisions were made by myself in conjunction with the Resident. I also supervised torres portions of any procedures performed by the Resident. For all further details of the patient's emergency department visit, please see their documentation. (Comment: Please note this report has been produced using speech recognition software and may contain errors related to that system including errors in grammar, punctuation, and spelling, as well as words and phrases that may be inappropriate. If there are any questions or concerns please feel free to contact the dictating provider for clarification.) Melva Brenner DO [employer] Melva Brenner DO 07/31/221916 EMERGENCY DEPARTMENT ENCOUNTER Pt Name: Yelena Chandra Birthdate 1935 Date of evaluation: 07/31/2022 ED Provider: VIKY MAURER DO CHIEF COMPLAINT Chief Complaint Patient presents with Weakness, Gen HISTORY OF PRESENT ILLNESS (Location/Symptom, Timing/Onset, Context/Setting, Quality, Duration, Modifying Factors, Severity) Note limiting factors. I wore appropriate PPE for the entirety of this encounter. HPI Yelena Chandra is a 87 y.o. female who presents to the emergency department with chief complaint of worsening shortness of breath within the last couple of days. States that she has been having nasal congestion and cough. No fever or chills. She lives with her sister who made her come to the ED for evaluation today. Nursing Notes were reviewed. Limitations to history: None Outside historians: Family sister REVIEW OF SYSTEMS Review of Systems ROS negative except for as mentioned in the HPI PAST MEDICAL HISTORY Past Medical History: Diagnosis Date Anxiety Hypertension SURGICAL HISTORY Past Surgical History: Procedure Laterality Date DILATION AND CURETTAGE OF UTERUS HYSTERECTOMY TONSILLECTOMY AND ADENOIDECTOMY (HISTORICAL) CURRENT MEDICATIONS Previous Medications No medications on file ALLERGIES Patient has no known allergies. FAMILY HISTORY No family history on file. SOCIAL HISTORY Social History Socioeconomic History Marital status: Tobacco Use Smoking status: Former Smokeless tobacco: Never Substance and Sexual Activity Alcohol use: No Drug use: No SCREENINGS PHYSICAL EXAM ED Triage Vitals [07/31/22 1555] Temp Heart Rate Resp BP 36.9 C (98.4 F) (!) 111 20 (!) 159/90 SpO2 Temp Source Heart Rate Source Patient Position 95 % Oral Monitor Lying BP Location FiO2 (%) Left arm -- Physical Exam GENERAL APPEARANCE: Awake and alert. Cooperative. No acute distress. HEAD: Normocephalic. Atraumatic. EYES: EOM's grossly intact. Sclera anicteric. ENT: Mucous membranes are moist. Tolerates saliva. No trismus. NECK: Supple. No meningismus. Trachea midline. HEART: RRR. Radial pulses 2+. LUNGS: Coarse lung sounds throughout ABDOMEN: Soft. Non-tender. No guarding or rebound. EXTREMITIES: No acute deformities. SKIN: Warm and dry. NEUROLOGICAL: No gross facial drooping. Moves all 4 extremities spontaneously. PSYCHIATRIC: Normal mood. DIAGNOSTIC RESULTS Procedures/EKG: EKG was reviewed by myself. Physician EKG interpretation can be found in [facility] RADIOLOGY (Per Emergency Physician): Interpretation per the Radiologist below, if available at the time of this note: XR chest 1 view Final Result Coarsening of the interstitial lung markings is likely chronic. No focal consolidation is identified. Report Dictated on Electronically Signed By: Tushar Melendez Electronically Signed Date/Time: 07/31/2022 4:57 PM EST ED BEDSIDE ULTRASOUND: Performed by ED Physician - none LABS: Labs Reviewed BASIC METABOLIC PANEL - Abnormal Result Value SODIUM 137 POTASSIUM 3.3 (*) CHLORIDE 102 CARBON DIOXIDE 30 UREA NITROGEN 15 CREATININE 0.92 GLUCOSE 147 (*) CALCIUM 8.8 ANION GAP 4 eGFR 61.1 CBC (HEMOGRAM) - Abnormal Auto WBC 11.5 (*) RBC 4.35 Hemoglobin 12.1 Hematocrit 36.8 MCV 84.6 MCH 27.9 MCHC 32.9 RDW 13.3 Platelets 263 MPV 9.4 TROPONIN I - Abnormal TROPONIN I 0.068 (*) Narrative: Patients with high levels of Biotin oral intake (ie >5 mg/day) may have falsely decreased Troponin levels. NT PRO BNP - Abnormal NT PRO BNP 6,597 (*) MAGNESIUM - Abnormal MAGNESIUM 1.4 (*) SARS-COV-2, FLU A/B, AND RSV COMBO - Normal SARS-CoV-2 Not Detected Respiratory Syncytial Virus Not Detected Influenza A Not Detected Influenza B Not Detected Narrative: Methodology: real-time, RT-PCR The SARS-CoV-2, Flu A/B, and RSV Combo assay is intended for in vitro diagnostic use under the FDA Emergency Use Authorization (EUA). This test has not been FDA cleared or approved. In compliance with this authorization, please visit www.fda.gov/media/983234/download or www.fda.gov/media/947194/download to access the applicable information sheets. RESPIRATORY CULTURE AND STAIN SARS-COV-2 AND RESPIRATORY PCR PANEL LEGIONELLA AND STREPTOCOCCUS URINE ANTIGEN PNEUMONIA PCR PANEL TROPONIN I TROPONIN I HEMOGLOBIN A1C PROCALCITONIN TEST All other labs were within normal range or not returned as of this dictation. EMERGENCY DEPARTMENT COURSE and DIFFERENTIAL DIAGNOSIS/MDM: Vitals: Vitals: 07/31/22 1555 07/31/22 1602 07/31/22 1735 07/31/22 1739 BP: (!) 159/90 (!) 167/96 BP Location: Left arm Left arm Patient Position: Lying Lying Pulse: (!) 111 (!) 115 (!) 114 Resp: 18 Temp: 36.9 C (98.4 F) TempSrc: Oral SpO2: 95% 96% 97% 98% Weight: 81.6 kg (180 lb) Height: 1.626 m (5' 4") MDM elements: The patient presented with chief complaint of worsening shortness of breath within the last couple of days. States that she has been having nasal congestion and cough. No fever or chills. She lives with her sister who made her come to the ED for evaluation today. Differential diagnosis associated with this patient's presentation includes pneumonia, ACS, COPD exacerbation, PE. Work-up consisted of ordering and reviewing respiratory panel, BNP, troponin, BMP, CBC, chest x-ray, EKG. Chest x-ray with findings of coarsening of the interstitial lung markings is likely chronic. No focal consolidation is identified. Potassium 3.3. She was given Klor-Con 40 mEq. IV fluid normal saline bolus given. DuoNeb breathing treatment given. Remains tachycardic with increased work of breathing. Discussed case with hospitalist who agrees to admit patient under their service. Patient is in agreement with plan. Medications metoprolol tartrate (Lopressor) tablet 100 mg (100 mg Oral Given 07/31/222013) sodium chloride 0.9% (NS) flush 10 mL (10 mL IntraVENous Given 07/31/222099) sodium chloride 0.9% (NS) flush 10 mL (has no administration in time range) sodium chloride 0.9 % infusion (has no administration in time range) ondansetron ODT (Zofran-ODT) disintegrating tablet 4 mg (has no administration in time range) Or ondansetron (Zofran) injection 4 mg (has no administration in time range) polyethylene glycol (PEG) 3350 (Miralax) packet 17 g (has no administration in time range) Influenza Vac A&B SA Adj quadrivalent (Fluad) vaccine 0.5 mL (has no administration in time range) cefTRIAXone (Rocephin) 1,000 mg in sodium chloride 0.9 % 50 mL IVPB Mini-Bag Plus (0 mg IntraVENous Stopped 07/31/221924) doxycycline (Monodox) capsule 100 mg (has no administration in time range) enoxaparin (Lovenox) syringe 40 mg (40 mg SubCUTAneous Not Given 07/31/221999) methylPREDNISolone sod suc (PF) (SOLU-Medrol) 40 MG injection 40 mg (40 mg IntraVENous Given 07/31/221854) perflutren lipid microspheres (Definity) injection 1.65 mg (has no administration in time range) aspirin EC tablet 81 mg (81 mg Oral Given 07/31/221906) amLODIPine (Norvasc) tablet 5 mg (5 mg Oral Given 07/31/221854) ipratropium-albuterol (Duo-Neb) 0.5-2.5 mg/3 mL nebulizer solution 3 mL (has no administration in time range) guaiFENesin (Mucinex) 12 hr tablet 600 mg (has no administration in time range) sodium chloride 0.9 % bolus 500 mL (0 mL IntraVENous Stopped 07/31/221734) ipratropium-albuterol (Duo-Neb) 0.5-2.5 mg/3 mL nebulizer solution 3 mL (3 mL Nebulization Given 07/31/221735) sodium chloride 0.9 % bolus 500 mL (0 mL IntraVENous Stopped 07/31/221799) potassium chloride (Klor-Con) packet 40 mEq (40 mEq Oral Given 07/31/221855) REVAL: CONSULTS: IP CONSULT TO COPD NAVIGATOR IP CONSULT TO CARDIOLOGY PROCEDURES: Unless otherwise noted below, none Procedures FINAL IMPRESSION 1. Dyspnea DISPOSITION Admit 07/31/2022 05:50:25 PM PATIENT REFERRED TO: No follow-up provider specified. DISCHARGE MEDICATIONS: New Prescriptions No medications on file (Comment: Please note this report has been produced using speech recognition software and may contain errors related to that system including errors in grammar, punctuation, and spelling, as well as words and phrases that may be inappropriate. If there are any questions or concerns please feel free to contact the dictating provider for clarification.) VIKY MAURER DO (electronically signed) Emergency Medicine Provider Viky Maurer DO Resident 07/31/222151 Arrived via ems from home, patient A/0 x4, GCS 15, able to speak in complete sentences and provide some of here medical hx, placed on monitor, continue to assess Bed: 30 Expected date: Expected time: Means of arrival: Comments: Jad Avery RN 07/31/221553 Bed: 05 Expected date: Expected time: Means of arrival: Comments: Room 30 Ju Avery RN 07/31/221832 documented in this encounter [facility] 07-31-2022 Emergency department Note Introduced myself as pt liaison explained role and provided support to sister Lynn in [facility]. Pt arrived via EMS. RADHA Holman 07/31/221552 [facility] 07-31-2022 Emergency department Note Bed: 30 Expected date: Expected time: Means of arrival: Comments: Jad Avery RN 07/31/22 155 [facility] 07-31-2022 Emergency department Note Bed: 05 Expected date: Expected time: Means of arrival: Comments: Room 30 Ju Avery RN 07/31/221832 [facility] 07-31-2022 Emergency department Triage note Arrived via ems from home, patient A/0 x4, GCS 15, able to speak in complete sentences and provide some of here medical hx, placed on monitor, continue to assess [facility] 07-31-2022 Physician Emergency department Note Emergency Department Encounter [facility] ED Patient: Yelena Chandra : 1935 Date of Evaluation: 07/31/2022 ED Supervising Physician: Melva Brenner DO I independently examined and evaluated Yelena Chandra. This will serve as my Supervisory note and shared attestation. I did perform a substantive portion of the visit including all aspects of the Medical Decision Making. I wore appropriate PPE for the entirety of this encounter. In brief, Yelena Chandra is a 87 y.o. female that presents to the emergency department generalized weakness. Focused exam: Physical exam was relatively unremarkable. Patient speaking in full sentences, abdominal exam was unremarkable no lower extremity swelling. Brief ED course/MDM: This time presented to the emergency department for some weakness and shortness of breath. Differential does include COPD, CHF, bronchitis. Patient did have lab work consisting of a PE which was relatively unremarkable, troponin was elevated at 0.068 however there are no comparisons. Patient did have a CBC which was negative COVID was negative. Did have a chest x-ray independently interpreted showing some emphysematous changes no consolidations noted. Did have an EKG which was independently interpreted no ST elevations or depressions does show a sinus tachycardia normal intervals. Did review the patient's chart specifically an H&P from 06/17/2021 and the patient was admitted for generalized weakness. Very similar to the patient's current presentation. MDM elements: The patient presented with chief complaint of shortness of breath. The differential diagnosis associated with this patient's presentation includes anemia, COPD, CHF. Our workup consisted of ordering/reviewing: BC, CMP, troponin, EKG, chest x-ray. Patient is in agreement with this plan. All diagnostic, treatment, and disposition decisions were made by myself in conjunction with the Resident. I also supervised torres portions of any procedures performed by the Resident. For all further details of the patient's emergency department visit, please see their documentation. (Comment: Please note this report has been produced using speech recognition software and may contain errors related to that system including errors in grammar, punctuation, and spelling, as well as words and phrases that may be inappropriate. If there are any questions or concerns please feel free to contact the dictating provider for clarification.) Melva Brenner DO [employer] Melva Brenner DO 07/31/221916 [employer] Phone: 07-31-2022 Physician Emergency department Note EMERGENCY DEPARTMENT ENCOUNTER Pt Name: Yelena Chandra Birthdate 1935 Date of evaluation: 07/31/2022 ED Provider: VIKY MAURER DO CHIEF COMPLAINT Chief Complaint Patient presents with Weakness, Gen HISTORY OF PRESENT ILLNESS (Location/Symptom, Timing/Onset, Context/Setting, Quality, Duration, Modifying Factors, Severity) Note limiting factors. I wore appropriate PPE for the entirety of this encounter. HPI Yelena Chandra is a 87 y.o. female who presents to the emergency department with chief complaint of worsening shortness of breath within the last couple of days. States that she has been having nasal congestion and cough. No fever or chills. She lives with her sister who made her come to the ED for evaluation today. Nursing Notes were reviewed. Limitations to history: None Outside historians: Family sister REVIEW OF SYSTEMS Review of Systems ROS negative except for as mentioned in the HPI PAST MEDICAL HISTORY Past Medical History: Diagnosis Date Anxiety Hypertension SURGICAL HISTORY Past Surgical History: Procedure Laterality Date DILATION AND CURETTAGE OF UTERUS HYSTERECTOMY TONSILLECTOMY AND ADENOIDECTOMY (HISTORICAL) CURRENT MEDICATIONS Previous Medications No medications on file ALLERGIES Patient has no known allergies. FAMILY HISTORY No family history on file. SOCIAL HISTORY Social History Socioeconomic History Marital status: Tobacco Use Smoking status: Former Smokeless tobacco: Never Substance and Sexual Activity Alcohol use: No Drug use: No SCREENINGS PHYSICAL EXAM ED Triage Vitals [07/31/22 1555] Temp Heart Rate Resp BP 36.9 C (98.4 F) (!) 111 20 (!) 159/90 SpO2 Temp Source Heart Rate Source Patient Position 95 % Oral Monitor Lying BP Location FiO2 (%) Left arm -- Physical Exam GENERAL APPEARANCE: Awake and alert. Cooperative. No acute distress. HEAD: Normocephalic. Atraumatic. EYES: EOM's grossly intact. Sclera anicteric. ENT: Mucous membranes are moist. Tolerates saliva. No trismus. NECK: Supple. No meningismus. Trachea midline. HEART: RRR. Radial pulses 2+. LUNGS: Coarse lung sounds throughout ABDOMEN: Soft. Non-tender. No guarding or rebound. EXTREMITIES: No acute deformities. SKIN: Warm and dry. NEUROLOGICAL: No gross facial drooping. Moves all 4 extremities spontaneously. PSYCHIATRIC: Normal mood. DIAGNOSTIC RESULTS Procedures/EKG: EKG was reviewed by myself. Physician EKG interpretation can be found in [facility] RADIOLOGY (Per Emergency Physician): Interpretation per the Radiologist below, if available at the time of this note: XR chest 1 view Final Result Coarsening of the interstitial lung markings is likely chronic. No focal consolidation is identified. Report Dictated on Electronically Signed By: Tushar Melendez Electronically Signed Date/Time: 07/31/2022 4:57 PM EST ED BEDSIDE ULTRASOUND: Performed by ED Physician - none LABS: Labs Reviewed BASIC METABOLIC PANEL - Abnormal Result Value SODIUM 137 POTASSIUM 3.3 (*) CHLORIDE 102 CARBON DIOXIDE 30 UREA NITROGEN 15 CREATININE 0.92 GLUCOSE 147 (*) CALCIUM 8.8 ANION GAP 4 eGFR 61.1 CBC (HEMOGRAM) - Abnormal Auto WBC 11.5 (*) RBC 4.35 Hemoglobin 12.1 Hematocrit 36.8 MCV 84.6 MCH 27.9 MCHC 32.9 RDW 13.3 Platelets 263 MPV 9.4 TROPONIN I - Abnormal TROPONIN I 0.068 (*) Narrative: Patients with high levels of Biotin oral intake (ie >5 mg/day) may have falsely decreased Troponin levels. NT PRO BNP - Abnormal NT PRO BNP 6,597 (*) MAGNESIUM - Abnormal MAGNESIUM 1.4 (*) SARS-COV-2, FLU A/B, AND RSV COMBO - Normal SARS-CoV-2 Not Detected Respiratory Syncytial Virus Not Detected Influenza A Not Detected Influenza B Not Detected Narrative: Methodology: real-time, RT-PCR The SARS-CoV-2, Flu A/B, and RSV Combo assay is intended for in vitro diagnostic use under the FDA Emergency Use Authorization (EUA). This test has not been FDA cleared or approved. In compliance with this authorization, please visit www.fda.gov/media/179323/download or www.fda.gov/media/103022/download to access the applicable information sheets. RESPIRATORY CULTURE AND STAIN SARS-COV-2 AND RESPIRATORY PCR PANEL LEGIONELLA AND STREPTOCOCCUS URINE ANTIGEN PNEUMONIA PCR PANEL TROPONIN I TROPONIN I HEMOGLOBIN A1C PROCALCITONIN TEST All other labs were within normal range or not returned as of this dictation. EMERGENCY DEPARTMENT COURSE and DIFFERENTIAL DIAGNOSIS/MDM: Vitals: Vitals: 07/31/22 1555 07/31/22 1602 07/31/22 1735 07/31/22 1739 BP: (!) 159/90 (!) 167/96 BP Location: Left arm Left arm Patient Position: Lying Lying Pulse: (!) 111 (!) 115 (!) 114 Resp: 18 18 Temp: 36.9 C (98.4 F) TempSrc: Oral SpO2: 95% 96% 97% 98% Weight: 81.6 kg (180 lb) Height: 1.626 m (5' 4") MDM elements: The patient presented with chief complaint of worsening shortness of breath within the last couple of days. States that she has been having nasal congestion and cough. No fever or chills. She lives with her sister who made her come to the ED for evaluation today. Differential diagnosis associated with this patient's presentation includes pneumonia, ACS, COPD exacerbation, PE. Work-up consisted of ordering and reviewing respiratory panel, BNP, troponin, BMP, CBC, chest x-ray, EKG. Chest x-ray with findings of coarsening of the interstitial lung markings is likely chronic. No focal consolidation is identified. Potassium 3.3. She was given Klor-Con 40 mEq. IV fluid normal saline bolus given. DuoNeb breathing treatment given. Remains tachycardic with increased work of breathing. Discussed case with hospitalist who agrees to admit patient under their service. Patient is in agreement with plan. Medications metoprolol tartrate (Lopressor) tablet 100 mg (100 mg Oral Given 07/31/222013) sodium chloride 0.9% (NS) flush 10 mL (10 mL IntraVENous Given 07/31/222099) sodium chloride 0.9% (NS) flush 10 mL (has no administration in time range) sodium chloride 0.9 % infusion (has no administration in time range) ondansetron ODT (Zofran-ODT) disintegrating tablet 4 mg (has no administration in time range) Or ondansetron (Zofran) injection 4 mg (has no administration in time range) polyethylene glycol (PEG) 3350 (Miralax) packet 17 g (has no administration in time range) Influenza Vac A&B SA Adj quadrivalent (Fluad) vaccine 0.5 mL (has no administration in time range) cefTRIAXone (Rocephin) 1,000 mg in sodium chloride 0.9 % 50 mL IVPB Mini-Bag Plus (0 mg IntraVENous Stopped 07/31/221924) doxycycline (Monodox) capsule 100 mg (has no administration in time range) enoxaparin (Lovenox) syringe 40 mg (40 mg SubCUTAneous Not Given 07/31/221999) methylPREDNISolone sod suc (PF) (SOLU-Medrol) 40 MG injection 40 mg (40 mg IntraVENous Given 07/31/221854) perflutren lipid microspheres (Definity) injection 1.65 mg (has no administration in time range) aspirin EC tablet 81 mg (81 mg Oral Given 07/31/221906) amLODIPine (Norvasc) tablet 5 mg (5 mg Oral Given 07/31/221854) ipratropium-albuterol (Duo-Neb) 0.5-2.5 mg/3 mL nebulizer solution 3 mL (has no administration in time range) guaiFENesin (Mucinex) 12 hr tablet 600 mg (has no administration in time range) sodium chloride 0.9 % bolus 500 mL (0 mL IntraVENous Stopped 07/31/221734) ipratropium-albuterol (Duo-Neb) 0.5-2.5 mg/3 mL nebulizer solution 3 mL (3 mL Nebulization Given 07/31/221735) sodium chloride 0.9 % bolus 500 mL (0 mL IntraVENous Stopped 07/31/221799) potassium chloride (Klor-Con) packet 40 mEq (40 mEq Oral Given 07/31/221855) REVAL: CONSULTS: IP CONSULT TO COPD NAVIGATOR IP CONSULT TO CARDIOLOGY PROCEDURES: Unless otherwise noted below, none Procedures FINAL IMPRESSION 1. Dyspnea DISPOSITION Admit 07/31/2022 05:50:25 PM PATIENT REFERRED TO: No follow-up provider specified. DISCHARGE MEDICATIONS: New Prescriptions No medications on file (Comment: Please note this report has been produced using speech recognition software and may contain errors related to that system including errors in grammar, punctuation, and spelling, as well as words and phrases that may be inappropriate. If there are any questions or concerns please feel free to contact the dictating provider for clarification.) VIKY MAURER DO (electronically signed) Emergency Medicine Provider Viky Maurer DO Resident 07/31/222151 [facility] 06-20-2021 Note Hospitalist Discharg e Summary Yelena Chandra : 1935 Admit date: 06/17/2021 Discharge date: 06/20/2021 Admitting Physician: Bryce Pisano DO Primary Care Physician: Yenifer Schulz Visit Status: Admission Code Status: Full Code Discharge Diagnoses: 1. Severe bilateral knee OA s/p bilateral knee injection on 06/18/21 2. HTN 3. Tachycardia-resolved 4. Hypomagnesemia 5. Obesity 6. 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 Anxiety ? Hypertension Procedures: knee injections Hospital Course: See discharge diagnoses list above and medication adjustments below in med rec.The patient is discharged in improved and stable condition. Consults: IP CONSULT TO ORTHOPEDIC SURGERY Discharge Instructions: Diet: ADULT DIET; Regular Activity: as tolerated Recommended Outpatient Tests: Disposition: Patient discharged in stable condition to SNF. Greater than 30 minutes spent discharging the patient and coming up with patient discharge plan. Vitals: BP (!) 150/81 Pulse 63 Temp 98.8 ?F (37.1 ?C) (Temporal) Resp 16 Ht 5' (1.524 m) Wt 180 lb (81.6 kg) SpO2 95% BMI 35.15 kg/m? Pulse Ox: SpO2 Av % Min: 94 % Max: 96 % Supplemental O2: General appearance: No apparent distress, appears stated age and cooperative with exam HEENT: Normal cephalic, atraumatic without obvious deformity. Pupils equal, round, and reactive to light. Extra ocular muscles intact. Conjunctivae/corneas clear. Neck: Supple, with full range of motion. No jugular venous distention. Trachea midline. No lymphadenopathy. Respiratory: Normal respiratory effort. Clear to auscultation, bilaterally without Rales/Wheezes/Rhonchi. Cardiovascular: Regular rate and rhythm with normal S1/S2 without murmurs, rubs or gallops. Abdomen: Soft, non-tender, non-distended with normal bowel sounds. No rebound or guarding. Musculoskeletal: No clubbing, cyanosis or edema bilaterally. Full range of motion without deformity. Skin: Skin color, texture, turgor normal. No rashes or lesions. Neurologic: Neurovascularly intact without any focal sensory/motor deficits. Cranial nerves: II-XII intact, grossly non-focal. Discharge Medications: Medication List START taking these medications acetaminophen 500 MG tablet Commonly known as: TYLENOL Take 2 tablets by mouth every 8 hours as needed for Pain amLODIPine 5 MG tablet Commonly known as: NORVASC Take 1 tablet by mouth daily metoprolol 100 MG tablet Commonly known as: LOPRESSOR Take 1 tablet by mouth 2 times daily miconazole 2 % powder Commonly known as: MICOTIN Apply topically 2 times daily. CONTINUE taking these medications cetirizine 10 MG tablet Commonly known as: ZYRTEC PARoxetine 10 MG tablet Commonly known as: PAXIL telmisartan 20 MG tablet Commonly known as: MICARDIS therapeutic multivitamin-minerals tablet Where to Get Your Medications You can get these medications from any pharmacy You don't need a prescription for these medications ? acetaminophen 500 MG tablet Information about where to get these medications is not yet available Ask your nurse or doctor about these medications ? amLODIPine 5 MG tablet ? metoprolol 100 MG tablet ? miconazole 2 % powder Recommended Follow-up: Dennis Linares MD [address] [place] [address], [address] [facility] [address] As needed Yenifer Schulz [address] [place] [address] [id number] In 1 week post hospital fu appt Readmission Risk Risk of Unplanned Readmission: 11 Complexity of Follow up: [] Moderate Complexity: follow up within 7-14 calendar days (46635) [x] Severe Complexity: follow up within 7 calendar days (44590) Follow up Testing, Pending results or Referrals at Transitional Care Visit: [x] yes [] no Instructions to MA: Please call patient on day after discharge (must document patient contacted within 2 business days of discharge). Follow up questions for MA: 1. Did you get medications filled and taking them as instructed from discharge? 2. Are you following your discharge instructions from your hospital stay? 3. Please confirm patient is scheduled for a follow up appointment within the above time frame. Signed: Bryce Pisano DO Division of Hospitalist Medicine Inpatient Medical Services 06/20/2021, 9:53 AM [facility] Evaluation note Diagnosis Dyspnea- Primary Other dyspnea and respiratory abnormality Dyspnea Other dyspnea and respiratory abnormality [facility] Diagnosis Dizziness- Primary Dizziness and giddiness Acute cystitis without hematuria [facility]* Diagnosis Decreased activities of daily living (ADL)- Primary Weakness Other malaise and fatigue Decreased activities of daily living (ADL) Hypokalemia Hypopotassemia Hypomagnesemia Disorders of magnesium metabolism Moderate malnutrition (CMS/HCC) (HCC) [facility] noteNo assessment information availableWSy[facility] Work Phone: Evaluation note* Diagnosis Dementia, unspecified dementia severity, unspecified dementia type, unspecified whether behavioral, psychotic, or mood disturbance or anxiety (HCC)- Primary Dementia, unspecified dementia severity, unspecified dementia type, unspecified whether behavioral, psychotic, or mood disturbance or anxiety (HCC) Agitation Other and unspecified special symptom or syndrome, not elsewhere classified Acute kidney injury superimposed on chronic kidney disease (HCC) (HCC) Elevated troponin Other abnormal blood chemistry Neck mass Swelling, mass, or lump in head and neck Abnormal chest x-ray Nonspecific (abnormal) findings on radiological and other examination of lung field Debility Unspecified debility At risk for delirium Moderate malnutrition (CMS/HCC) (HCC) documented in this encounter [facility] Summary Purpose Family History No Family History Records FoundNo Family History Records FoundNo Family History Records FoundNo Family History Records FoundNo Family History Records Found Advance Directives No Advanced Directives Records FoundLatest Code Status on File Code Status Date Activated Date Inactivated Comments Full Code 07/31/2022 6:10 PM 08/07/2022 5:05 PM Latest Code Status on File Code Status Date Activated Date Inactivated Comments DNR-CCA 07/14/2023 12:21 PM 07/22/2023 12:57 PM Question Answer Comments ICU transfer: Yes Intubation: No Code Status History Code Status Date Activated Date Inactivated Comments Full Code 07/11/2023 9:23 PM 07/14/2023 12:21 PM Full Code 07/31/2022 6:10 PM 08/07/2022 5:05 PM Date Activated Date Inactivated Comments 12/01/2024 8:00 AM 12/04/2024 3:50 PM Date Activated Date Inactivated Comments 07/14/2023 12:21 PM 07/22/2023 12:57 PM Question Answer Comments ICU transfer: Yes Intubation: No Date Activated Date Inactivated Comments 07/11/2023 9:23 PM 07/14/2023 12:21 PM Date Activated Date Inactivated Comments 07/31/2022 6:10 PM 08/07/2022 5:05 PM Date Activated Date Inactivated Comments 12/01/2024 8:00 AM 12/04/2024 3:50 PM Date Activated Date Inactivated Comments 07/14/2023 12:21 PM 07/22/2023 12:57 PM Question Answer Comments ICU transfer: Yes Intubation: No Date Activated Date Inactivated Comments 07/11/2023 9:23 PM 07/14/2023 12:21 PM Date Activated Date Inactivated Comments 07/31/2022 6:10 PM 08/07/2022 5:05 PM Chief Complaint and Reason for Visit Chief Complaint LABWORK Chief Complaint LABWORK CORRECTION LAB WORK Additional Source Comments INFORMATION SOURCE (unrecogn ized section and content) DATE CREATED AUTHOR 07/12/2021 [facility] DATE CREATED AUTHOR AUTHOR'S ORGANIZ ATION 01/22/2022 [facility] DATE CREATED AUTHOR AUTHOR'S ORGANIZ ATION 08/16/2023 [facility] DATE CREATED AUTHOR AUTHOR'S ORGANIZ ATION 09/03/2024 [facility] DATE CREATED AUTHOR AUTHOR'S ORGANIZ ATION 12/08/2024 [facility] Reason for Visit (unrecogniz ed section and content) Reason Comments Weakness, Gen Specialty Diagnoses / Procedures Referred By Contac t Referred To Contact Diagnoses Dyspnea Procedures . Victorino Barnes MD [address], [facility] [address] [place] [address] [facility] Emergency Dept [address] [place] [address] Referral ID Status Reason Start Date Expiration Date Visits Re quested Visits Authorized [id number] 1 Reason Comments Dizziness Per Street Ems repor t patient became dizzy upon standing in the bathroom and slid to the floor. EMS was called by patients sister due to patient being unable to get off the floor. Patient denies any pain or hitting her head . Reason Comments Failure To Thrive Pt comes in via EMS due to failure to thrive pt keeps repeating "I'm not normal didn't they tell you hats wrong with me" when asked what is "not normal" pt yells " I dont know" vitals taken, EKG called during triage Specialty Diagnoses / Procedures Referred By Contac t Referred To Contact Diagnoses Hypokalemia Hypomagnesemia Weakness Decreased activities of daily living (ADL) Procedures . Nicole Lombardi MD [address] [place] [address] [facility] [address] Referral ID Status Reason Start Date Expiration Date Visits Re quested Visits Authorized [id number] 1 Reason Onset Date Comments Hospital Follow-up 08/11/2022 Reason Onset Date Comments Other 12/04/2024 page Reason Comments Failure To Thrive Specialty Diagnoses / Procedures Referred By Contac t Referred To Contact Diagnoses Agitation Neck mass Elevated troponin Abnormal chest x-ray Acute kidney injury superimposed on chronic kidney disease (HCC) (HCC) Dementia, unspecified dementia severity, unspecified dementia type, unspecified whether behavioral, psychotic, or mood disturbance or anxiety (HCC) Procedures . Freddie Bernard MD [address] [place] [address] Phone: tel: fax: [facility] [address] [place] [address] Phone: tel: Referral ID Status Reason Start Date Expiration Date Visits Re quested Visits Authorized [id number] 1 1 Scheduled Active and Recently Administ ered Medications (unrecognized section and content) Medication Order 08/05/2022 08/06/2022 08/07/2022 amLODIPine (Norvasc) tablet 10 mg 10 mg, Oral, Daily, First dose (after last modification) on Fri08/06/22 at 0900 0956 (Given - Provider: Sammi Lynch RN) 0910 (Given - Provider: Sammi Lynch, MITA) amLODIPine (Norvasc) tablet 7.5 mg (CANCELED) 7.5 mg, Oral, Daily, First dose (after last modification) on Fri08/04/22 at 0900 0803 (Given - Provider: Mack Mooney RN) aspirin EC tablet 81 mg 81 mg, Oral, Daily, First dose on Fri07/31/22 at 2000, Do not crush, chew, or split. 0803 (Given - Provider: Mack Mooney RN) 0955 (Given - Provider: Sammi Lynch RN) 0910 (Given - Provider: Sammi Lynch, MITA) budesonide (Pulmicort) 0.5 MG/2ML nebulizer solution 0.5 mg 0.5 mg, Nebulization, 2 times daily RT, First dose on Shivani 08/01/22 at 2000, Rinse mouth with water after use to reduce aftertaste and incidence of candidiasis. Do not swallow. 0932 (Given - Provider: Ghazal Olvera RCP)2033 (Given - Provider: Demarcus Calderón RCP) 0800 (Canceled Entry - Provider: Automatic Discharge Provider - Comment: Automatically canceled at discontinue of medication order)1999 (Not Given - Provider: Nano Menard RCP - Reason: Other - Comment: RT busy in ED) 0913 (Given - Provider: Ingris Coronado RCP) cefTRIAXone (Rocephin) 1,000 mg in sodium chloride 0.9 % 50 mL IVPB Mini-Bag Plus (COMPLETED) 1,000 mg, IntraVENous, at 100 mL/hr, Administer over 30 Minutes, Every 24 hours, First dose (after last modification) on Fri08/05/22 at 1930, For 2 doses, Mini-Bag Plus bag, Suspected Indication (Select all that apply): COPD Exacerbation 2047 (New Bag - Provider: Dianne Diaz RN)2117 (Stopped - Provider: Dianne Diaz RN) 1409 (New Bag - Provider: Sammi Lynch RN)1439 (Stopped - Provider: Sammi Lynch RN) enoxaparin (Lovenox) syringe 40 mg 40 mg, SubCUTAneous, Every 24 hours scheduled (Daily), First dose on Fri07/31/22 at 2000, Indication of Use: Prophylaxis-DVT/PE, Indications: Prophylaxis of Venous Thromboembolism 0804 (Given - Provider: Mack Mooney RN) 0956 (Given - Provider: Sammi Lynch RN) 0910 (Given - Provider: Sammi Lynch RN) guaiFENesin (Mucinex) 12 hr tablet 600 mg 600 mg, Oral, 2 times daily, First dose on Fri07/31/22 at 2110, Administer with plenty of fluids to ensure proper action. Do not crush, chew, or split. 0803 (Given - Provider: Mack Mooney RN)2047 (Given - Provider: Dianne Diaz RN) 0956 (Given - Provider: Sammi Lynch RN)2024 (Given - Provider: Yuki Jenkins, MITA) 0910 (Given - Provider: Sammi Lynch, MITA) hydrALAZINE (Apresoline) tablet 25 mg 25 mg, Oral, 3 times daily, First dose on Fri08/06/22 at 1430 1547 (Given - Provider: Sammi Lynch, MITA)2054 (Given - Provider: Yuki Jenkins, MITA) 0910 (Given - Provider: Sammi Lynch, MITA)1322 (Given - Provider: Sammi Lynch RN) Influenza Vac A&B SA Adj quadrivalent (Fluad) vaccine 0.5 mL 0.5 mL, IntraMUSCular, Once, On Shivani 08/01/22 at 0900, For 1 dose ipratropium-albuterol (Duo-Neb) 0.5-2.5 mg/3 mL nebulizer solution 3 mL 3 mL, Nebulization, 2 times daily RT, First dose (after last modification) on 08/05/22 at 0800 0932 (Given - Provider: Ghazal Olvera RCP)2028 (Given - Provider: Demarcus Calderón RCP) 0800 (Canceled Entry - Provider: Automatic Discharge Provider - Comment: Automatically canceled at discontinue of medication order)1999 (Not Given - Provider: Nano Menard RCP - Reason: Other) 09 (Given - Provider: Ingris Coronado RCP) metoprolol tartrate (Lopressor) tablet 100 mg 100 mg, Oral, 2 times daily, First dose on Fri07/31/22 at 2100 0803 (Given - Provider: Mack Mooney RN)2047 (Given - Provider: Dianne Diaz RN) 0956 (Given - Provider: Sammi Lynch RN)2024 (Given - Provider: Yuki Jenkins, MITA) 0910 (Given - Provider: Sammi Lynch RN) nystatin (Mycostatin) 073367 UNIT/ML suspension 500,000 Units 500,000 Units (5 mL), Swish & Swallow, 2 times daily, First dose on Fri08/02/22 at 1330 0804 (Given - Provider: Mack Mooney RN)2047 (Given - Provider: Dianne Diaz RN) 0956 (Given - Provider: Sammi Lynch RN)2024 (Given - Provider: Yuki Jenkins, MITA) 0910 (Given - Provider: Sammi Lynch RN) pantoprazole (ProtoNix) EC tablet 40 mg 40 mg, Oral, Daily before breakfast, First dose on Fri08/05/22 at 1300, Do not crush, chew, or split. 1300 (Not Given - Provider: Mack Mooney RN - Reason: Other - Comment: patient wants to start in morning) 0700 (Given - Provider: Dianne Diaz RN) 0605 (Given - Provider: Yuki Jenkins, MITA) predniSONE (Deltasone) tablet 40 mg (COMPLETED) 40 mg, Oral, Daily, First dose on Fri08/02/22 at 1315, For 4 doses 0803 (Given - Provider: Mack Mooney RN) sodium chloride 0.9% (NS) flush 10 mL 10 mL, IntraVENous, Every 12 hours scheduled (2 times per day), First dose on Fri07/31/22 at 2100 0805 (Given - Provider: Mack Mooney RN)2100 (Not Given - Provider: Dianne Diaz RN - Reason: Order parameters not met) 1003 (Given - Provider: Sammi Lynch, MITA)2025 (Given - Provider: Yuki Jenkins RN) 0910 (Given - Provider: Sammi Lynch, MITA) PRN Medication Order 08/05/2022 08/06/2022 08/07/2022 benzocaine-menthol (Chloraseptic) 6-10 MG lozenge 1 lozenge 1 lozenge, Mouth/Throat, Every 2 hour PRN, sore throat, Starting on Shivani 08/01/22 at 2040 1503 (Given - Provider: Mack Mooney RN) 0957 (Given - Provider: Sammi Lynch, MITA) ondansetron (Zofran) injection 4 mg(Linked Group 1) 4 mg, IntraVENous, Every 6 hours PRN, nausea, vomiting, Starting on 07/31/22 at 1810, 1st Line. Give IV if patient is unable to take orally. If inadequate response within 60 minutes, proceed to next-line agent or contact provider if no further options ordered. ondansetron ODT (Zofran-ODT) disintegrating tablet 4 mg(Linked Group 1) 4 mg, Oral, Every 8 hours PRN, nausea, vomiting, Starting on 07/31/22 at 1810, 1st Line. If inadequate response within 60 minutes, proceed to next-line agent or contact provider if no further options ordered. Patient should allow tablet to dissolve on tongue. Do not remove from blister pack until just before administering. perflutren lipid microspheres (Definity) injection 1.65 mg 1.65 mg, IntraVENous, IMG once PRN, other, Suboptimal echo image, Starting on Fri07/31/22 at 1810, For 1 dose, CV Procedural Medications, Administer up to 1.65 mg via slow IVP for suboptimal echocardiogram enhancement. May administer a calculated dose or diluted 8.5 mL of 0.9% sodium chloride for a total volume of 10 mL. May administer as divided doses to reach optimal image enhancement polyethylene glycol (PEG) 3350 (Miralax) packet 17 g 17 g, Oral, Daily PRN, constipation, Starting on Fri07/31/22 at 1810, 1st line for treatment of constipation - give scheduled if no bowel movement in past 24 hours. sodium chloride 0.9 % infusion 5-250 mL/hr, IntraVENous, PRN, if patient receiving piggyback infusions and maintenance fluids are not ordered OR KVO fluids to protect IV site / prevent frequent line interruptions/ long duration, Starting on Fri07/31/22 at 1810, For piggyback infusion, administer at same rate as piggyback for a total of 25 mL. Enter 25 mL into dose field and piggyback rate into rate field of order. If piggyback is infusing at a rate less than 100 mL/hr, enter 25 mL into dose field and 100 mL/hr into rate field of order. For KVO fluids, enter rate of 20 mL/hr or less into rate field of order. sodium chloride 0.9% (NS) flush 10 mL 10 mL, IntraVENous, PRN, line care, Starting on Fri07/31/22 at 1810, After every IV line use Linked Groups Order Group 1: ondansetron ODT (Zofran-ODT) disintegrating tablet 4 mgJump to med 4 mg, Oral, Every 8 hours PRN, nausea, vomiting, Starting on Fri07/31/22 at 1810
1st Line. If inadequate response within 60 minutes, proceed to next-line agent or contact provider if no further options ordered. Patient should allow tablet to dissolve on tongue. Do not remove from blister pack until just before administering.
Or ondansetron (Zofran) injection 4 mgJump to med 4 mg, IntraVENous, Every 6 hours PRN, nausea, vomiting, Starting on Fri07/31/22 at 1810
1st Line. Give IV if patient is unable to take orally. If inadequate response within 60 minutes, proceed to next-line agent or contact provider if no further options ordered.
Scheduled Medication Order 12/24/2022 12/25/2022 12/26/2022 magnesium sulfate in D5W IVPB 1,000 mg (COMPLETED) 1,000 mg, IntraVENous, at 100 mL/hr, Administer over 1 Hours, Once, On Shivani 12/26/22 at 1705, For 1 dose, Recommended infusion rate not to exceed 1,000 mg (milligrams) per hour. 174 (New Bag - Prov ider: Lukasz Lacey RN)1842 (Stopped - Provider: Lukasz Lacey RN) sodium chloride 0.9 % bolus 1,000 mL (COMPLETED) 1,000 mL, IntraVENous, at 1,000 mL/hr, Administer over 1 Hours, Once, On Shivani 12/26/22 at 1630, For 1 dose 1631 (New Bag - Prov ider: Lukasz Lacey RN)1733 (Stopped - Provider: Lukasz Lacey RN) Scheduled Medication Order 07/20/2023 07/21/2023 07/22/2023 amLODIPine (Norvasc) tablet 10 mg (CANCELED) 10 mg, Oral, Daily, First dose on 07/12/23 at 0900 0859 (Given - Provider: Alexandra Larkin RN) 0915 (Given - Provider: Chau Meadows RN) amLODIPine (Norvasc) tablet 5 mg 5 mg, Oral, Daily, First dose (after last modification) on Fri07/22/23 at 0900 0824 (Given - Provider: Maryellen Henriquez LPN) aspirin EC tablet 81 mg 81 mg, Oral, Daily, First dose on 07/12/23 at 0900, Do not crush, chew, or split. 0859 (Given - Provider: Alexandra Larkin RN) 0916 (Given - Provider: Chau Meadows RN) 0835 (Given - Provider: Maryellen Henriquez LPN) enoxaparin (Lovenox) syringe 40 mg 40 mg, SubCUTAneous, Every 24 hours scheduled (Daily), First dose on 07/12/23 at 0900, Indication of Use: Prophylaxis-DVT/PE, Indications: Prophylaxis of Venous Thromboembolism 0859 (Given - Provider: Alexandra Larkin RN) 0915 (Given - Provider: Chau Meadows RN) 0830 (Given - Provider: Maryellen Henriquez LPN) hydrALAZINE (Apresoline) tablet 50 mg (CANCELED) 50 mg, Oral, 3 times daily, First dose on Fri07/11/23 at 2130 0859 (Given - Provider: Alexandra Larkin RN)1534 (Given - Provider: Alexandra Larkin RN)2031 (Given - Provider: Vee Romero LPN) 0915 (Given - Provider: Chau Meadows RN)1536 (Not Given - Provider: Chau Meadows RN - Reason: Contraindicated) ipratropium-albuterol (Duo-Neb) 0.5-2.5 mg/3 mL nebulizer solution 3 mL 3 mL, Nebulization, 3 times daily, First dose on Fri07/16/23 at 1500 0941 (Given - Provider: Ana Reid RCP)1418 (Given - Provider: Ana Reid RCP)2135 (Given - Provider: Jamshid Chacko, ELAINE) 0853 (Given - Provider: Dread Jaramillo RCP)1306 (Given - Provider: Dread Jaramillo RCP)2005 (Given - Provider: Bambi Harris RCP) 0933 (Not Given - Provider: Demarcus Calderón RCP - Reason: Patient not available - Comment: with OT) metoprolol tartrate (Lopressor) tablet 100 mg 100 mg, Oral, 2 times daily, First dose on Fri07/11/23 at 2130 0859 (Given - Provider: Alexandra Larkin RN)203 (Given - Provider: Vee Romero LPN) 0916 (Given - Provider: Chau Meadows RN)205 (Given - Provider: Vee Romero LPN) 0829 (Given - Provider: Maryellen Henriquez LPN) oseltamivir (Tamiflu) capsule 30 mg(Linked Group 1) 30 mg, Oral, 2 times daily, First dose on Fri07/17/23 at 0900, For 5 days, Coverage: Influenza, Infection Site: Site Not Specified 0859 (Given - Provider: Alexandra Larkin RN)203 (Given - Provider: Vee Romero LPN) 0916 (Given - Provider: Chau Meadows RN)2100 (Not Given - Provider: Vee Romero LPN - Reason: Other - Comment: order ) pantoprazole (ProtoNix) EC tablet 40 mg 40 mg, Oral, Daily before breakfast, First dose on Fri07/12/23 at 0700, Do not crush, chew, or split. 0558 (Not Given - Provider: Vee Romero LPN - Reason: Other - Comment: pt spit out) 0700 (Not Given - Provider: Vee Romero LPN - Reason: Other - Comment: pt cannot swallow whole pills) 0700 (Not Given - Provider: Vee Romero LPN - Reason: Other) polyethylene glycol (PEG) 3350 (Miralax) packet 17 g 17 g, Oral, Daily, First dose (after last modification) on Shivani 07/17/23 at 0900, 1st line for treatment of constipation - give scheduled if no bowel movement in past 24 hours. Hold for loose stools 0859 (Given - Provider: Alexandra Larkin RN) 0900 (Not Given - Provider: Chau Meadows RN - Reason: Order parameters not met) 0833 (Given - Provider: Maryellen Henriquez LPN) potassium chloride (Klor-Con) packet 20 mEq 20 mEq, Oral, Daily, First dose on Fri07/21/23 at 0915, Dissolve each packet in 4 ounces of water = 5 mEq per 1 oz fluid. 1030 (Given - Provider: Chau Meadows RN) 0825 (Given - Provider: Maryellen Henriquez LPN) potassium chloride CR (Klor-Con M20) ER tablet 20 mEq (CANCELED) 20 mEq, Oral, Daily, First dose on Fri07/18/23 at 0900, Best given with food and plenty of water to minimize gastric irritation. Do not crush or chew. 0900 (Given - Provider: Alexandra Larkin RN) 0900 (Not Given - Provider: Chau Meadows RN - Reason: Order parameters not met) sertraline (Zoloft) tablet 25 mg 25 mg, Oral, Daily, First dose on Fri07/18/23 at 0900, For 7 doses 0859 (Given - Provider: Alexandra Larkin RN) 0915 (Given - Provider: Chau Meadows RN) 0825 (Given - Provider: Maryellen Henriquez LPN) sertraline (Zoloft) tablet 50 mg 50 mg, Oral, Daily, First dose on Fri07/25/23 at 0900 PRN Medication Order 07/20/2023 07/21/2023 07/22/2023 acetaminophen (Tylenol) suppository 650 mg(Linked Group 2) 650 mg, Rectal, Every 6 hours PRN, mild pain (1-3), fever, For temp greater than 100.4 F (38 C), Starting on Fri07/11/23 at 2122, Administer if oral route cannot be used. Maximum dose of acetaminophen is 4000 mg from all sources in 24 hours. acetaminophen (Tylenol) tablet 650 mg(Linked Group 2) 650 mg, Oral, Every 6 hours PRN, mild pain (1-3), fever, For temp greater than 100.4 F (38 C), Starting on Fri07/11/23 at 2, Maximum dose of acetaminophen is 4000 mg from all sources in 24 hours. melatonin tablet 3 mg 3 mg, Oral, Nightly PRN, sleep, Starting on Fri07/16/23 at 1307 ondansetron (Zofran) injection 4 mg(Linked Group 3) 4 mg, IntraVENous, Every 6 hours PRN, nausea, vomiting, Starting on Fri07/11/23 at 2121, 1st Line. Give IV if patient is unable to take orally. If inadequate response within 60 minutes, proceed to next-line agent or contact provider if no further options ordered. ondansetron ODT (Zofran-ODT) disintegrating tablet 4 mg(Linked Group 3) 4 mg, Oral, Every 8 hours PRN, nausea, vomiting, Starting on Fri07/11/23 at 2121, 1st Line. If inadequate response within 60 minutes, proceed to next-line agent or contact provider if no further options ordered. Patient should allow tablet to dissolve on tongue. Do not remove from blister pack until just before administering. Linked Groups Order Group 1: oseltamivir (Tamiflu) capsule 75 mg (COMPLETED) 75 mg, Oral, Once, On Fri07/16/23 at 1715, For 1 dose, Coverage: Influenza, Infection Site: Site Not Specified Followed by oseltamivir (Tamiflu) capsule 30 mgJump to med 30 mg, Oral, 2 times daily, First dose on Fri07/17/23 at 0900, For 5 days, Coverage: Influenza, Infection Site: Site Not Specified Group 2: acetaminophen (Tylenol) tablet 650 mgJump to med 650 mg, Oral, Every 6 hours PRN, mild pain (1-3), fever, For temp greater than 100.4 F (38 C), Starting on Fri07/11/23 at 2122, Maximum dose of acetaminophen is 4000 mg from all sources in 24 hours. Or acetaminophen (Tylenol) suppository 650 mgJump to med 650 mg, Rectal, Every 6 hours PRN, mild pain (1-3), fever, For temp greater than 100.4 F (38 C), Starting on Fri07/11/23 at 2, Administer if oral route cannot be used. Maximum dose of acetaminophen is 4000 mg from all sources in 24 hours. Group 3: ondansetron ODT (Zofran-ODT) disintegrating tablet 4 mgJump to med 4 mg, Oral, Every 8 hours PRN, nausea, vomiting, Starting on Fri07/11/23 at 2, 1st Line. If inadequate response within 60 minutes, proceed to next-line agent or contact provider if no further options ordered. Patient should allow tablet to dissolve on tongue. Do not remove from blister pack until just before administering. Or ondansetron (Zofran) injection 4 mgJump to med 4 mg, IntraVENous, Every 6 hours PRN, nausea, vomiting, Starting on Fri07/11/23 at 2121, 1st Line. Give IV if patient is unable to take orally. If inadequate response within 60 minutes, proceed to next-line agent or contact provider if no further options ordered. Scheduled Medication Order 12/02/2024 12/03/2024 12/04/2024 aspirin EC tablet 81 mg 81 mg, Oral, Daily, First dose on Fri12/02/24 at 0900, Do not crush, chew, or split. 0827 (Given - Provider: Evelia Hawley RN) 0919 (Given - Provider: Tona Fine) 0841 (Given - Provider: Dee Chinchilla RN) cholecalciferol (Vitamin D-3) tablet 2,000 Units 2,000 Units, Oral, Daily, First dose on Fri12/04/24 at 0900 0843 (Given - Provider: Dee Chinchilla, MITA) enoxaparin (Lovenox) syringe 40 mg 40 mg, SubCUTAneous, Every 24 hours scheduled (Daily), First dose on Fri12/01/24 at 0900, Indication of Use: Prophylaxis-DVT/PE, Indications: Prophylaxis of Venous Thromboembolism 0828 (Given - Provider: Evelia Hawley RN) 0920 (Given - Provider: Tona Fine) 0843 (Given - Provider: Dee Chinchilla RN) melatonin tablet 3 mg 3 mg, Oral, Nightly, First dose on Fri12/01/24 at 2100 2109 (Given - Provider: Lucero Faustin RN) 2020 (Given - Provider: Salina Godoy RN) metoprolol tartrate (Lopressor) tablet 25 mg 25 mg, Oral, 2 times daily, First dose (after last modification) on Fri12/01/24 at 2100 0827 (Given - Provider: Evelia Hawley RN)2109 (Given - Provider: Lucero Faustin RN) 918 (Given - Provider: Tona Fine)2020 (Given - Provider: Salina Godoy, MITA) 0842 (Given - Provider: Dee Chinchilla RN) miconazole (Micotin) 2 % powder Topical, 2 times daily, First dose on Fri12/03/24 at 2330 0851 (Given - Provider: Dee Chinchilla RN) pantoprazole (ProtoNix) EC tablet 40 mg 40 mg, Oral, Daily before breakfast, First dose on Fri12/02/24 at 0600, Do not crush, chew, or split. 0516 (Given - Provider: Ez Rockwell RN) 0618 (Given - Provider: Lucero Faustin RN) 0608 (Given - Provider: Salina Godoy RN) potassium chloride CR (Klor-Con M10) ER tablet 20 mEq (COMPLETED) 20 mEq, Oral, Once, On Fri12/02/24 at 0800, For 1 dose, Best given with food and plenty of water to minimize gastric irritation. Do not crush or chew. 0827 (Given - Provider: Evelia Hawley RN) sertraline (Zoloft) tablet 50 mg 50 mg, Oral, Daily, First dose on Fri12/03/24 at 0900 0919 (Given - Provider: Tona Fine) 0842 (Given - Provider: Dee Chinchilla RN) therapeutic multivitamin-minerals (Theragran-M) tablet 1 tablet, Oral, Daily, First dose on Fri12/01/24 at 0900 0827 (Given - Provider: Evelia Hawley RN) 09 (Given - Provider: Tona Fine) 0843 (Given - Provider: Dee Chinchilla, MITA) Continuous Medication Order 12/02/2024 12/03/2024 12/04/2024 lactated Ringer's infusion () 100 mL/hr, IntraVENous, Continuous, Starting on Shivani 12/02/24 at 0800, For 10 hours 0827 (New Bag - Provider: Evelia Hawley, RN)1844 (Stopped - Provider: Evelia Hawley RN - Comment: [Order ends at this time. Document the following action when infusion is complete: Stopped]) PRN Medication Order 12/02/2024 12/03/2024 12/04/2024 acetaminophen (Tylenol) suppository 650 mg(Linked Group 1) 650 mg, Rectal, Every 6 hours PRN, fever, For temp greater than 100.4 F (38 C), Starting on Fri12/01/24 at 0800, Administer if oral route cannot be used. Maximum dose of acetaminophen is 4000 mg from all sources in 24 hours. acetaminophen (Tylenol) tablet 650 mg(Linked Group 1) 650 mg, Oral, Every 6 hours PRN, mild pain (1-3), fever, For temp greater than 100.4 F (38 C), Starting on Fri12/01/24 at 0800, Maximum dose of acetaminophen is 4000 mg from all sources in 24 hours. melatonin tablet 3 mg 3 mg, Oral, Nightly PRN, sleep, Starting on Fri12/01/24 at 0800 ondansetron (Zofran) injection 4 mg(Linked Group 2) 4 mg, IntraVENous, Every 6 hours PRN, nausea, vomiting, Starting on Fri12/01/24 at 0800, 1st Line. Give IV if patient is unable to take orally. If inadequate response within 60 minutes, proceed to next-line agent or contact provider if no further options ordered. ondansetron ODT (Zofran-ODT) disintegrating tablet 4 mg(Linked Group 2) 4 mg, Oral, Every 8 hours PRN, nausea, vomiting, Starting on Fri12/01/24 at 0800, 1st Line. If inadequate response within 60 minutes, proceed to next-line agent or contact provider if no further options ordered. Patient should allow tablet to dissolve on tongue. Do not remove from blister pack until just before administering. perflutren protein A microsphere (Optison) 3 mL in sodium chloride (PF) 0.9 % 10 mL IV (COMPLETED) 0-10 mL, IntraVENous, IMG once PRN, other, Suboptimal echo image, Starting on Shivani 12/02/24 at 0943, For 1 dose, CV Procedural Medications, Administer via slow IVP for suboptimal echocardiogram enhancement. May administer as divided doses to reach optimal image enhancement 0945 (Given - Provider: Yanci Headley RN) polyethylene glycol (PEG) 3350 (Miralax) packet 17 g 17 g, Oral, Daily PRN, constipation, Starting on Fri12/01/24 at 0800, 1st line for treatment of constipation - give scheduled if no bowel movement in past 24 hours. Linked Groups Order Group 1: acetaminophen (Tylenol) tablet 650 mgJump to med 650 mg, Oral, Every 6 hours PRN, mild pain (1-3), fever, For temp greater than 100.4 F (38 C), Starting on Fri12/01/24 at 0800, Maximum dose of acetaminophen is 4000 mg from all sources in 24 hours. Or acetaminophen (Tylenol) suppository 650 mgJump to med 650 mg, Rectal, Every 6 hours PRN, fever, For temp greater than 100.4 F (38 C), Starting on Fri12/01/24 at 0800, Administer if oral route cannot be used. Maximum dose of acetaminophen is 4000 mg from all sources in 24 hours. Group 2: ondansetron ODT (Zofran-ODT) disintegrating tablet 4 mgJump to med 4 mg, Oral, Every 8 hours PRN, nausea, vomiting, Starting on Fri12/01/24 at 0800, 1st Line. If inadequate response within 60 minutes, proceed to next-line agent or contact provider if no further options ordered. Patient should allow tablet to dissolve on tongue. Do not remove from blister pack until just before administering. Or ondansetron (Zofran) injection 4 mgJump to med 4 mg, IntraVENous, Every 6 hours PRN, nausea, vomiting, Starting on Fri12/01/24 at 0800, 1st Line. Give IV if patient is unable to take orally. If inadequate response within 60 minutes, proceed to next-line agent or contact provider if no further options ordered. Care Teams (unrecognized sec tion and content) Team Status: Inactive Member Role Status Dates Christiano RHODES Attending Provider Active Team Status: Inactive Member Role Status Dates Christiano RHODES Attending Provider, Referring Provi mehreen Active Well Blower Relationship Specialty Start Date End Date Bicnubia-Yenifer Krishnan DO [address] [place] [address] PCP - General 07/06/15 Well Blower Relationship Specialty Start Date End Date Bicnubia-OdDeion delacruza, DO [address] [place] [address] PCP - General 07/06/15 Well Blower Relationship Specialty Start Date End Date Bicnubia-Yenifer Krishnan DO [address] [place] [address] PCP - General 07/06/15 Team Status: Active Member Role Status Dates Christiano RHODES Attending Provider Active Well Blower Relationship Specialty Start Date End Date Yaritza-Yenifer Krishnan DO [address] [place] [address] PCP - General 07/06/15 Well Blower Relationship Specialty Start Date End Date Bicnubia-Deion Krishnana DO [address] [place] [address] PCP - General 07/06/15 Well Blower Relationship Specialty Start Date End Date Yaritza-Yenifer Krishnan DO [address] [place] [address] PCP - General 07/06/15 Well Blower Relationship Specialty Start Date End Date Bicnubia-OdYenifer delacruz DO [address] [place] [address] PCP - General 07/06/15 Goals (unrecognized section and content) Goals may be documented in a n alternate sectionGoals may be documented in an alternate section FOR RECORDS PERTAINING TO PATIENTS WHO ARE OR HAVE BEEN ENROLLED IN A CHEMICAL DEPENDENCY/SUBSTANCEABUSE PROGRAM, SOME INFORMATION MAY BE OMITTED. This clinical summary was aggregated from multiple sources. Caution should be exercised in using it in the provision of clinical care. This summary normalizes information from multiple sources, and as a consequence, information in this document may materially change the coding, format and clinical context of patient data. In addition, data may be omitted in some cases. CLINICAL DECISIONS SHOULD BE BASED ON THE PRIMARY CLINICAL RECORDS. [facility]. provides no warranty or guarantee of the accuracy or completeness of information in this document.
[2024-12-13 08:50] LABS: Hematocrit 31.1 % (37-47); Hemoglobin 9.8 g/dL (12.0-15.0); Mean Corp Hgb Conc 31.5 g/dL (32-36); Mean Corpuscular Volume 86.6 fL (81-99); Mean Platelet Vol. 10.2 fl (6.2-12.0); Platelet Count 485 K/mm3 (150-450); RBC Distribution Width CV 13.4 % (11.6-14.6); RBC Distribution Width SD 42.3 fl (35.1-43.9); Red Blood Count 3.59 M/mm3 (4.2-5.4); White Blood Count 8.1 K/mm3 (4.4-11.0)
[2024-12-13 09:25] LABS: AST(SGOT) 29 U/L (<=31); Alanine Aminotransfer ALT/SGPT 21 U/L (<=34); Albumin, Serum 2.9 g/dL (3.4-4.8); Alkaline Phosphatase 100 U/L (35-104); Anion Gap 10 (5-15); BUN 30 mg/dL (4-19); BUN/Creat Ratio 24.0 RATIO (10-20); Calcium,Total 9.2 mg/dL (7.6-11.0); Carbon Dioxide 25.8 mmol/L (21.0-32.0); Chloride 104 mmol/L (98-108); Globulin 3.6 g/dL (2.2-4.2); Glucose 122 mg/dL (70-99); Potassium 5.1 mmol/L (3.3-5.1)
== END ==
LOC: OLS.SANC 05:00
PROVIDERS: Visit Provider Internal Medicine
DX: I12.9 Hypertensive chronic kidney disease with stage 1 through stage 4 chronic kidney disease, or unspecified chronic kidney disease (principal); F03.90 Unspecified dementia, unspecified severity, without behavioral disturbance, psychotic disturbance, mood disturbance, and anxiety; E03.9 Hypothyroidism, unspecified; N18.30 Chronic kidney disease, stage 3 unspecified
CPT/HCPCS: 36415; 80053; 84443; 85027